=== PATIENT | female | born 1940 | race Caucasian/White ===

== ENCOUNTER 2019-08-22 14:14 | Emergency (ER) | payer MEDICARE, BC, SELFPAY ==
[2019-08-22 14:15] VITALS: BP 154/84; PULSE 75; RESP 20; TEMP 36.8; O2SAT 90; BMI 28.2
[2019-08-22] MEDS: diazePAM 2 MG Tablet PO (14:47)
--- NOTE | 2019-08-22 15:29 | ED.DCSUM_ITS ---
History of Present Illness Chief Complaint: Dizziness Narrative: Patient presenting for evaluation secondary to dizziness and anxiety. Patient was at the [facility] today, and she had a sudden onset of dizziness. She describes this as a room spinning type sensation. Patient states that it will come and go, but it caused her to have a significant amount of anxiety, and she started crying. Patient denies any visual changes, headaches, speech difficulty, numbness, or weakness. She denies any ringing in her ears. Patient typically ambulates with a walker, but was unable to ambulate secondary to this dizziness initially. She does have a history of having some vertigo in the past and reports to me that this feels somewhat similar. Review of systems otherwise negative. Past Medical History - Allergies and Home Meds Allergies/Adverse Reactions: Allergies Sulfa (Sulfonamide Antibiotics) Allergy (Verified 08/22/19 14:19) Other PINE Allergy (Uncoded 08/22/19 14:19) Other Primary Care Physician: Booker Melendez MD [Primary Care Provider] - Past Medical History: - - Hypertension, hyperlipidemia, hypothyroidism Surgical History: noncontributory Smoking Status: Never smoker - Family History Maternal Family History: Reports: No pertinent history Paternal Family History: Reports: No pertinent history Review of Systems All systems negative except as indicated General: Denies: Chills, Fever, Sweats Eyes: Denies: Visual changes - bilaterally, Diplopia ENT: Denies: Rhinorrhea, Sore throat Cardiovascular: Denies: Chest pain, Palpitations Respiratory: Denies: Dyspnea, Cough, Dyspnea on exertion Gastrointestinal: Denies: Abdominal pain, Nausea, Vomiting, Diarrhea, Melena, Hematochezia Genitourinary: Denies: Dysuria, Hematuria, Frequency Musculoskeletal: Denies: Back pain, Extremity Pain Skin: Denies: Rash, Wounds Neurological: Reports: - - Dizziness. Denies: Headache, Weakness, Parasthesia, Numbness Psych: Reports: Anxiety Physical Exam Vital Signs/Narrative: Vital Signs Temp Pulse Resp BP Pulse Ox 08/22/19 14:15 98.3 F 75 20 H 154/84 H 90 Inital Vital Signs reviewed: Yes General: Well nourished, Well developed, Acute Distress - Tearful and hyperventilating Head: Normocephalic, Atraumatic Eyes: Perrl, EOMI, - - No evidence of resting nystagmus ENT: Moist mucous membranes, No rhinorrhea Neck: Supple, Nontender Cardiovascular: Regular rate, Regular rhythm, No murmurs Respiratory: No distress, CTA bilaterally, Chest nontender Abdomen: Soft, Nontender, Nondistended, Normal bowel sounds Extremities: Nontender, No edema Skin: Normal color, No rash Neurological: Alert, Oriented x3, Cranial nerves II-XII grossly intact, Normal Strength, Normal Sensation, - - Patient has reproduction of symptoms with Sylvester- Hallpike maneuver on the left side with very mild nystagmus noted. Psychological: Tearful Diagnostic/Tx/Re-eval - Medical Decision Making Patient presented secondary to dizziness. This is sudden onset sudden offset and reproducible. This seems consistent with a peripheral vertigo. Patient was given Valium and had improvement of both her anxiety as well as her dizziness and she was able to ambulate with her walker. Urinalysis was checked and was positive for leukocytes. Patient will be treated with a course of Keflex. Patient will be sent home with a course of Keflex and Antivert. She will follow-up with primary care next week. ED Disposition - Plan for ED Patient: Disposition: Home or Assisted Living Diagnosis: Vertigo, UTI (urinary tract infection) Instructions: Benign Positional Vertigo, Urinary Tract Infections in Women Prescriptions: Meclizine HCl [Antivert] 25 mg PO 4X/DAY PRN PRN #20 tab PRN Reason: Dizziness Prescription Printed Cephalexin [Keflex] 500 mg PO Q12 #14 cap Prescription Printed Referrals: Booker Melendez MD [Primary Care Provider] -
[2019-08-22 15:32] LABS: Mucous, Urine 0 SEEN /hpf (<or=2+); Red Blood Cells-Urine 0 SEEN /hpf (0-5); Squamous Epithelial Cells - UA 0 SEEN /hpf (5-10)
[2019-08-22 16:01] LABS: Color, Urine Yellow (Yellow); Glucose, Dipstick Normal (Normal); Ketone-Dipstick 5 mg/dl (Negative); Leukocyte Esterase-Dipstick 25 /ul (Negative); Nitrite-Dipstick Negative (Negative); Occult Blood-Urine Negative /ul (Negative); Protein-Dipstick Negative (Negative); Urine Bilirubin Dipstick Negative (Negative); Urine Clarity Clear (Clear); Urine Urobilinogen Normal (Normal)
[2019-08-22 16:48] LABS: Bacteria RARE /hpf (None Seen); White Blood Cells 0-5 SEEN /hpf (0-5)
[2019-08-22 16:55] VITALS: BP 152/78; PULSE 7; RESP 20; O2SAT 99
== END 2019-08-22 16:45 | disposition home or self-care (01) ==
PROVIDERS: Emergency Provider Emergency Medicine; Family Provider Family Medicine; PCP Family Medicine
DX: R42 Dizziness and giddiness (principal); N39.0 Urinary tract infection, site not specified; F41.9 Anxiety disorder, unspecified; I10 Essential (primary) hypertension; E03.9 Hypothyroidism, unspecified; E78.5 Hyperlipidemia, unspecified; Z88.2 Allergy status to sulfonamides; Z79.899 Other long term (current) drug therapy
CPT/HCPCS: 81001; 99283

== ENCOUNTER 2020-12-17 21:36 | Inpatient (IN) | payer MEDICARE, BC, SELFPAY ==
[2020-12-17 21:37] VITALS: BP 122/102; PULSE 64; RESP 16; TEMP 36.7; O2SAT 99; BMI 20.1
[2020-12-17 21:41] VITALS: BP 122/102; PULSE 64; RESP 16; TEMP 36.7; O2SAT 94
--- NOTE | 2020-12-17 21:50 | CT_ITS ---
STUDY: CT BRAIN WITHOUT CONTRAST REASON FOR EXAM: Female, 80 years old. fall head injury RADIATION DOSAGE (If Supplied By Facility): CTDIvol = ( 44.99 ) mGy, DLP = ( 829.85 ) mGycm TECHNIQUE: Transaxial CT imaging of the brain was performed without administration of intravenous contrast material. Individualized dose optimization techniques were used for this CT. COMPARISON: No relevant priors. FINDINGS: Normal soft tissue structures. Normal calvarium. There is mild cerebral atrophy with widening of the extra-axial spaces and ventricular dilatation. There are areas of decreased attenuation within the white matter tracts of the supratentorial brain, consistent with microvascular disease changes. Normal basal ganglia and thalami. Normal brainstem. There is mild cerebellar atrophy. There is no intracranial hemorrhage. There are no findings of an acute ischemic infarction. Normal visualized paranasal sinuses. CT/Brain/Head without Contrast IMPRESSION: Chronic involutional changes of the brain. Electronically Signed: Otis Draper DO at 23:00 EDT Tel , Service support ,
--- NOTE | 2020-12-17 21:51 | EKG12_ITS ---
Test Reason : DYSRHYTHMIA Blood Pressure : / mmHG Vent. Rate : 062 BPM Atrial Rate : 062 BPM P-R Int : 142 ms QRS Dur : 084 ms QT Int : 426 ms P-R-T Axes : 085 -53 063 degrees QTc Int : 432 ms Normal sinus rhythm Low voltage QRS Left anterior fascicular block Septal infarct , age undetermined Abnormal ECG Confirmed by SAMEER HERNANDEZ, KIESHA ([id number]), editorial assistant SEMAJ BALBUENA ([id number]) on 12/20/2020 9:51:14 AM Referred By: SILVINA Confirmed By:LONDON ESTRELLA MD
--- NOTE | 2020-12-17 21:53 | ED.VIS.GEN ---
History of Present Illness Chief Complaint: Weakness Informant: Patient, Family, Credit Manager Narrative: 80-year-old female brought in by family. Her 1 son was in hospice and she was going to say her final goodbyes this morning. Her other son came to pick her up and found her on the ground she did not know how she got to the ground but states and is very adamant that she did not fall. She does have a bruise below her right eye. Family states that she was upstairs and was having nonsensical talk. She was being talked about being hit by a tea bag and that there was a coffee filter on the floor. She has had minimal to eat today. Family came back to see her and she was again on the ground but stated that she did not fall. She denied being injured. This evening family was unable to get a hold of her and they came to check on her and called the ambulance. There was concern raised from EMS about slurred speech and facial droop which is not currently present. Patient does not know how she got here tonight. She does not know why she is here. - Past Medical History (1) Elevated liver function tests Status: Chronic (2) Hyperlipidemia Status: Chronic (3) Hypertension Status: Chronic (4) Hypothyroidism Status: Chronic Past Medical History - Allergies and Home Meds Allergies/Adverse Reactions: Allergies Penicillins [PCN] Allergy (Verified 12/17/20 21:44) Other Sulfa (Sulfonamide Antibiotics) Allergy (Verified 08/22/19 14:19) Other PINE Allergy (Uncoded 08/22/19 14:19) Other Primary Care Physician: Booker Melendez MD [Primary Care Provider] - Surgical History: noncontributory Lives: Alone Smoking Status: Never smoker Drugs: None - Family History Maternal Family History: Reports: No pertinent history Paternal Family History: Reports: No pertinent history Review of Systems General: Denies: Chills, Fever, Sweats Eyes: Denies: Visual changes - bilaterally, Diplopia ENT: Denies: Rhinorrhea, Sore throat Cardiovascular: Denies: Chest pain, Palpitations Respiratory: Denies: Dyspnea, Cough, Dyspnea on exertion Gastrointestinal: Denies: Abdominal pain, Nausea, Vomiting, Diarrhea, Melena, Hematochezia Genitourinary: Denies: Dysuria, Hematuria, Frequency Musculoskeletal: Denies: Back pain, Extremity Pain Skin: Denies: Rash, Wounds Neurological: Reports: - - Reported confusion. Denies: Headache, Weakness, Numbness Physical Exam Vital Signs/Narrative: Vital Signs Temp Pulse Resp BP Pulse Ox 12/17/20 21:41 98.0 F 64 16 122/102 H 94 12/17/20 21:37 98.0 F 64 16 122/102 H 99 Inital Vital Signs reviewed: Yes General: Well nourished, Well developed, No Acute Distress Head: Normocephalic, Trauma - Right inferior periorbital contusion no hyphema. No subconjunctival hemorrhage. Eyes: Perrl, EOMI ENT: Moist mucous membranes, No rhinorrhea Neck: Supple, Nontender Cardiovascular: Regular rate, Regular rhythm, No murmurs Respiratory: No distress, CTA bilaterally, Chest nontender Abdomen: Soft, Nontender, Nondistended, Normal bowel sounds Back: Nontender, Normal Inspection Extremities: Nontender, No edema Skin: Normal color, No rash Neurological: Alert, Cranial nerves II-XII grossly intact, Normal Strength, Normal Sensation. Negative for: Oriented x3 Psychological: Depressed Diagnostic/Tx/Re-eval Clinical Impression(s) from Imaging Studies Brain CT 12/17/20 21:50 IMPRESSION: Chronic involutional changes of the brain. Electronically Signed: Otis Draper DO at 23:00 EDT Tel , Service support , Chest X-Ray 12/17/20 22:37 IMPRESSION: Normal x-ray examination of the chest. Electronically Signed: Otis Draper DO at 22:59 EDT Tel , Service support , Laboratory Last Values WBC 6.9 K/mm3 (4.4-11.0) 12/17/20 21:54 RBC 4.05 M/mm3 (4.2-5.4) L 12/17/20 21:54 Hgb 12.6 g/dL (12.0-15.0) 12/17/20 21:54 Hct 39.1 % (37-47) 12/17/20 21:54 MCV 96.5 fL (81-99) 12/17/20 21:54 MCH 31.1 pg (27.0-32.0) 12/17/20 21:54 MCHC 32.2 g/dL (32-36) 12/17/20 21:54 RDW Std Deviation 45.1 fl (35.1-43.9) H 12/17/20 21:54 RDW Coeff of Jad 12.6 % (11.6-14.6) 12/17/20 21:54 Plt Count 216 K/mm3 (150-450) 12/17/20 21:54 MPV 10.7 fl (6.2-12.0) 12/17/20 21:54 Immature Gran % (Auto) 0.100 % (0.0-0.9) 12/17/20 21:54 Neut % (Auto) 80.2 % (47-70) H 12/17/20 21:54 Lymph % (Auto) 11.4 % (19-41) L 12/17/20 21:54 [place] % (Auto) 7.3 % (0-10) 12/17/20 21:54 Eos % (Auto) 0.6 % (0-5) 12/17/20 21:54 Baso % (Auto) 0.4 % (0-1) 12/17/20 21:54 Absolute Neuts (auto) 5.5 X10^3/uL (2.0-7.7) 12/17/20 21:54 Absolute Lymphs (auto) 0.78 X10^3/uL (0.83-4.51) L 12/17/20 21:54 Nucleated RBC % 0 % (0-5) 12/17/20 21:54 Sodium 141 mmol/L (136-145) 12/17/20 21:54 Potassium 4.4 mmol/L (3.5-5.1) 12/17/20 21:54 Chloride 107 mmol/L (98-107) 12/17/20 21:54 Carbon Dioxide 30.0 mmol/L (21.0-32.0) 12/17/20 21:54 Anion Gap 4 (5-15) L 12/17/20 21:54 BUN 33 mg/dL (7-18) H 12/17/20 21:54 Creatinine 1.34 mg/dL (0.55-1.02) H 12/17/20 21:54 Estim Creat Clear Calc 32.18 ml/min 12/17/20 21:54 Est GFR (MDRD) Af Amer 49 mL/min (>60) L 12/17/20 21:54 Est GFR (MDRD) Non-Af 40 mL/min (>60) L 12/17/20 21:54 BUN/Creatinine Ratio 24.6 RATIO (10-20) H 12/17/20 21:54 Glucose 86 mg/dL (74-106) 12/17/20 21:54 Calcium 9.4 mg/dL (8.5-10.1) 12/17/20 21:54 Total Bilirubin 0.70 mg/dL (0.20-1.00) 12/17/20 21:54 AST 25 U/L (15-37) 12/17/20 21:54 ALT 17 U/L (13-56) 12/17/20 21:54 Alkaline Phosphatase 102 U/L (45-117) 12/17/20 21:54 Troponin I < 0.015 ng/mL (<0.045) 12/17/20 21:54 Total Protein 6.9 g/dL (6.4-8.2) 12/17/20 21:54 Albumin 3.7 g/dL (3.2-5.0) 12/17/20 21:54 Globulin 3.2 g/dL (2.2-4.2) 12/17/20 21:54 Albumin/Globulin Ratio 1.2 RATIO (0.9-2.4) 12/17/20 21:54 Urine Color Yellow (Yellow) 12/17/20 22:20 Urine Clarity Clear (Clear) 12/17/20 22:20 Urine pH 6.0 (5.0 - 8.0) 12/17/20 22:20 Ur Specific [place] 1.020 (1.002-1.030) 12/17/20 22:20 Urine Protein 100 mg/dl (Negative) H 12/17/20 22:20 Urine Glucose (UA) Normal mg/dl (Normal) 12/17/20 22:20 Urine Ketones 5 mg/dl (Negative) H 12/17/20 22:20 Urine Occult Blood 10 /ul (Negative) H 12/17/20 22:20 Urine Nitrite Positive (Negative) H 12/17/20 22:20 Urine Bilirubin 1 mg/dL (Negative) H 12/17/20 22:20 Urine Urobilinogen 4 mg/dl (Normal) H 12/17/20 22:20 Ur Leukocyte Esterase 25 /ul (Negative) H 12/17/20 22:20 Urine RBC 0-5 SEEN /hpf (0-5) 12/17/20 22:20 Urine WBC 5-10 SEEN /hpf (0-5) 12/17/20 22:20 Ur Squamous Epith Cells 0-5 SEEN /hpf (5-10) 12/17/20 22:20 Urine Bacteria 4+ /hpf (None Seen) 12/17/20 22:20 Hyaline Casts 5-10 SEEN /lpf (0-5) 12/17/20 22:20 Urine Mucus 0 SEEN /hpf (<or=2+) 12/17/20 22:20 - Medical Decision Making Patient's blood work is negative. She does not have a fever or elevated white count. Her urine is clearly infected. There is a question of a TIA which again I did not see any of that. I think she probably has a component of grief reaction/conversion disorder. Her son who is living is preparing to move in with her because she is not safe to live at home alone. I think it is reasonable that we observe her tonight due to UTI and get the home prepared for her to go back to safely. She is already ended up on the floor twice today that cannot be explained and neither can this bruise in the periorbital region. I will speak with her hospitalist. ED Disposition - Plan for ED Patient: Disposition: Acute Care Hospital [facility] Diagnosis: UTI (urinary tract infection), Grief reaction, TIA (transient ischemic attack), Periorbital contusion of right eye, Confusion Referrals: Booker Melendez MD [Primary Care Provider] -
[2020-12-17 22:02] LABS: Absolute Lymphocyte Count 0.78 X10^3/uL (0.83-4.51); Absolute Neutrophil Count 5.5 X10^3/uL (2.0-7.7); Basophil# 0.03 X10^3/uL; Basophil% 0.4 % (0-1); Eosinophil# 0.04 X10^3/uL; Eosinophils% 0.6 % (0-5); Hematocrit 39.1 % (37-47); Hemoglobin 12.6 g/dL (12.0-15.0); Lymphocyte # 0.78 X10^3/ul (0.83-4.51); Lymphocyte % 11.4 % (19-41); Mean Corp Hgb Conc 32.2 g/dL (32-36); Mean Corpuscular Hgb 31.1 pg (27.0-32.0); Mean Corpuscular Volume 96.5 fL (81-99); Mean Platelet Vol. 10.7 fl (6.2-12.0); Monocyte% 7.3 % (0-10); NRBC Flagged by Analyzer 0 % (0-5); Neutrophil # 5.49 X10^3/uL (2.7-7.7); Neutrophil % 80.2 % (47-70); Platelet Count 216 K/mm3 (150-450); RBC Distribution Width CV 12.6 % (11.6-14.6); RBC Distribution Width SD 45.1 fl (35.1-43.9); Red Blood Count 4.05 M/mm3 (4.2-5.4); White Blood Count 6.9 K/mm3 (4.4-11.0)
--- NOTE | 2020-12-17 22:37 | RAD_ITS ---
STUDY: X-RAY CHEST REASON FOR EXAM: Female, 80 years old. weakness TECHNIQUE: Single AP portable view of the chest. COMPARISON: 07/13/2017 FINDINGS: Moderate hiatal hernia The lungs are clear and expanded. There is no demonstrated pleural abnormality. Normal size heart. Normal mediastinum and bradly. Normal visualized pulmonary arteries. Normal visualized aortic arch and descending thoracic aorta. Normal visualized thoracic spine. Normal visualized ribs, clavicles, and shoulders. There is no demonstrated abnormality of the visualized soft tissue structures of the upper abdomen. RAD/Chest 1 View (Portable) IMPRESSION: Normal x-ray examination of the chest. Electronically Signed: Otis Draper DO at 22:59 EDT Tel , Service support ,
[2020-12-17 22:57] LABS: ALB/GLOB Ratio 1.2 RATIO (0.9-2.4); AST(SGOT) 25 U/L (15-37); Alanine Aminotransfer ALT/SGPT 17 U/L (13-56); Albumin, Serum 3.7 g/dL (3.2-5.0); Alkaline Phosphatase 102 U/L (45-117); Anion Gap 4 (5-15); BUN 33 mg/dL (7-18); BUN/Creat Ratio 24.6 RATIO (10-20); Calcium,Total 9.4 mg/dL (8.5-10.1); Chloride 107 mmol/L (98-107); Creatinine, Serum 1.34 mg/dL (0.55-1.02); EST Glomerular Filtration Rate 40 mL/min (>60); Est Glom Filt Rate - Afr Amer 49 mL/min (>60); Estimated Creatinine Clearance 32.18 ml/min; Globulin 3.2 g/dL (2.2-4.2); Glucose 86 mg/dL (74-106); Potassium 4.4 mmol/L (3.5-5.1); Protein, Total 6.9 g/dL (6.4-8.2); Sodium Level 141 mmol/L (136-145)
[2020-12-17 22:58] LABS: Mucous, Urine 0 SEEN /hpf (<or=2+)
[2020-12-17 23:00] VITALS: BP 142/74; PULSE 57; RESP 15; O2SAT 100
[2020-12-17 23:15] LABS: Color, Urine Yellow (Yellow); Glucose, Dipstick Normal (Normal); Ketone-Dipstick 5 mg/dl (Negative); Leukocyte Esterase-Dipstick 25 /ul (Negative); Nitrite-Dipstick Positive (Negative); Occult Blood-Urine 10 /ul (Negative); Protein-Dipstick 100 mg/dl (Negative); Urine Clarity Clear (Clear); Urine Urobilinogen 4 mg/dl (Normal)
[2020-12-17 23:25] LABS: Urine Bilirubin Dipstick 1 mg/dL (Negative)
[2020-12-17 23:43] LABS: Bacteria 4+ /hpf (None Seen); White Blood Cells 5-10 SEEN /hpf (0-5)
[2020-12-17 23:44] LABS: Hyaline Cast 5-10 SEEN /lpf (0-5); Red Blood Cells-Urine 0-5 SEEN /hpf (0-5); Squamous Epithelial Cells - UA 0-5 SEEN /hpf (5-10)
--- NOTE | 2020-12-17 23:57 | PCM.HP.STD ---
Problem List (1) UTI (urinary tract infection) Status: Acute Qualifiers: Urinary tract infection type: site unspecified Hematuria presence: without hematuria Qualified Code(s): N39.0 - Urinary tract infection, site not specified (2) Grief reaction Status: Acute (3) TIA (transient ischemic attack) Status: Acute (4) Hypertension Status: Chronic Qualifiers: Hypertension type: essential hypertension Qualified Code(s): I10 - Essential (primary) hypertension (5) Hyperlipidemia Status: Chronic Qualifiers: Hyperlipidemia type: unspecified Qualified Code(s): E78.5 - Hyperlipidemia, unspecified (6) Hypothyroidism Status: Chronic Qualifiers: Hypothyroidism type: unspecified Qualified Code(s): E03.9 - Hypothyroidism, unspecified History of Present Illness Date of Admission: 12/17/20 Chief Complaint: Facial droop, slurred speech, recent of son The patient is an 17 y/o F w/ PMHx: CKD stage III, Hypothyroidism, Anxiety and Depression, HTN, HLD who presents to the [facility] ED on 12/17/20 with expected of her son in hospice today with onset following confusion, forgetfulness, slurred speech and facial droop prompting ED presentation. She was saying abnormal things to her other son, declined oral intake and fell twice on day of ED presentation. Son denied any recent slurred speech or facial changes which again was only noted per EMS but does note that she has been extremely forgetful, more flat affect and has had frequent falls. As noted her son who was in hospice did on day of ED presentation and she was unable to see him before he in addition to this her who is been for the last 4 years on the same date. Work-up in the ED included T 98, heart 64, BP 122/102, respiratory rate 16, 99% on room air, CBC with WBC 6.9, hemoglobin 12.6, platelet 216 with lymphopenia, CMP with BUN/creatinine 33/1.34 otherwise not marked appearing, unremarkable hepatic profile, troponin less than 0.015, CXR with no acute cardiopulmonary findings, CT head no acute intracranial findings, EKG w/ SR without acute evidence of ischemia, urinalysis with specific gravity 1.020, protein 100, ketone 5, occult blood 10, positive nitrite, 1 bilirubin, 4 urobilinogen, 25 leukocyte esterase, urine WBC 5-10, 4+. In the ED patient ministered IV Rocephin. Past Medical History Past Medical History (Chronic Problems): Chronic Problems Elevated liver function tests (Chronic) Hypertension (Chronic) Hyperlipidemia (Chronic) Hypothyroidism (Chronic) Allergies Penicillins [PCN] Allergy (Verified 12/17/20 21:44) Other Sulfa (Sulfonamide Antibiotics) Allergy (Verified 08/22/19 14:19) Other PINE Allergy (Uncoded 08/22/19 14:19) Other Home Medications: Ambulatory Orders Medication Instructions Recorded Cholecalciferol (Vitamin D3) 1,000 unit PO DAILY 03/15/14 [Vitamin D3] Levothyroxine [Synthroid] 75 mcg PO DAILY 03/15/14 Atorvastatin Calcium 20 mg DAILY 12/17/20 Lorazepam 1 tablet DAILY PRN PRN 12/17/20 Paroxetine HCl 10 mg DAILY PRN 12/17/20 Surgical History: - - Back surgery with hardware, right total knee replacement, appendectomy, tonsillectomy, cholecystectomy although some of this is reported per patient who is currently confused. 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 Smoking Status: Never smoker Tobacco Use: Non-smoker Alcohol: None Drugs: None - *Family History Maternal History Items: Cancer - Patient's mother passed when she was 8 years old secondary to cancer, unclear type. Paternal History Items: Renal Disease - Father with history of end-stage renal disease on dialysis. Review of Systems Constitutional: Reports: Anorexia, Malaise, Weakness, Fatigue. Denies: Chills, Fever, Weight Change HEENT: Reports: Difficulty Hearing. Denies: Head Aches, Sinus Congestion, Sinus Drainage Cardiovascular: Denies: Chest Pain, Palpitations Respiratory: Denies: Cough, Shortness of Breath, Shortness of breath at rest, Shortness of breath upon exertion, Sputum production Gastrointestinal: Denies: Abdominal Pain, Nausea, Vomiting Genitourinary: Reports: Frequency. Denies: Dysuria Musculoskeletal: Reports: Back Pain, Joint Pain. Denies: Joint Tenderness Skin: Denies: Rash, Wounds Neurological: Reports: Confusion, - - Per EMS questionable slurred speech and facial droop not noted upon ED presentation.. Denies: Focal weakness, Numbness, Tingling Psychiatric: Reports: Anxiety, Depression. Denies: Homicidal Ideations, Suicidal Ideations Hematologic/ Lymphatic: Reports: Easy Bruising, Easy Bleeding VTE Information - Inpt Only VTE Present on Admission: No VTE Mechan Device Prophylaxis: SCD's VTE Pharm Prophylaxis ordered?: Yes Patient Problems: Active and Suspected Problems UTI (urinary tract infection) (Acute) Grief reaction (Acute) TIA (transient ischemic attack) (Acute) Periorbital contusion of right eye (Acute) Confusion (Acute) Subjective: Patient extremely hard of hearing, laying in the ED bed, very flat affect, fatigued appearance. Objective: Physical Examination: General: awake, alert, oriented to self, place and some recent events but very hard of hearing and decreased interactiveness, following commands, laying in the ED bed, no acute distress. Skin: normal color, turgor, no icterus, cyanosis except various staged ecchymoses including to the face, beneath the right eye. HEENT: AT/NC, EOMI, PERRLA, dry MM, no carotid bruits or JVD noted, see skin. Lungs: Diminished breath sounds, moderate effort, no rales, ronchi or wheezing. Heart: Regular rate and rhythm; no gallop, rub audible. Abdomen: soft, NTTP, ND, mildly hyperactive BS, no HSM. Extremities: no cyanosis, clubbing, or edema. Neurological: patient awake, alert, oriented as noted; cognitive function suspect decreased from baseline, suspect secondary primarily to grief; pupils equally reactive to light and accomodation; cranial nerves II-XII grossly normal, no evidence of any slurred speech or facial droop, extremely hard of hearing which complicates evaluation, moving all 4 extremities, no focal deficits, strength moderately global decreased. Psychiatric: affect appears fatigued, flat, appears depressed, no obvious evidence of anxiety. - Physical Exam Vitals/I&O's: Vital Signs Temp Pulse Resp BP Pulse Ox 98.0 F 57 L 15 142/74 H 100 12/17/20 21:41 12/17/20 23:00 12/17/20 23:00 12/17/20 23:00 12/17/20 23:00 Oxygen Delivery Method Room Air Weight: 136 lb 7.458 oz Body Mass Index (BMI) 20.1 Laboratory Results 12/17/20 21:54: WBC 6.9, RBC 4.05 L, Hgb 12.6, Hct 39.1, MCV 96.5, MCH 31.1, MCHC 32.2, RDW Std Deviation 45.1 H, RDW Coeff of Jad 12.6, Plt Count 216, MPV 10.7, Immature Gran % (Auto) 0.100, Neut % (Auto) 80.2 H, Lymph % (Auto) 11.4 L, [place] % (Auto) 7.3, Eos % (Auto) 0.6, Baso % (Auto) 0.4, Absolute Neuts (auto) 5.5, Absolute Lymphs (auto) 0.78 L, Nucleated RBC % 0 12/17/20 21:54: Sodium 141, Potassium 4.4, Chloride 107, Carbon Dioxide 30.0, Anion Gap 4 L, BUN 33 H, Creatinine 1.34 H, Estim Creat Clear Calc 32.18, Est GFR (MDRD) Af Amer 49 L, Est GFR (MDRD) Non-Af 40 L, BUN/Creatinine Ratio 24.6 H, Glucose 86, Calcium 9.4, Total Bilirubin 0.70, AST 25, ALT 17, Alkaline Phosphatase 102, Troponin I < 0.015, Total Protein 6.9, Albumin 3.7, Globulin 3.2, Albumin/Globulin Ratio 1.2 12/17/20 22:20: Urine Color Yellow, Urine Clarity Clear, Urine pH 6.0, Ur Specific [place] 1.020, Urine Protein 100 H, Urine Glucose (UA) Normal, Urine Ketones 5 H, Urine Occult Blood 10 H, Urine Nitrite Positive H, Urine Bilirubin 1 H, Urine Urobilinogen 4 H, Ur Leukocyte Esterase 25 H, Urine RBC 0-5 SEEN, Urine WBC 5-10 SEEN, Ur Squamous Epith Cells 0-5 SEEN, Urine Bacteria 4+, Hyaline Casts 5-10 SEEN, Urine Mucus 0 SEEN Current Medications Ceftriaxone Sodium (Rocephin) 1 gm in 50 mls @ 100 mls/hr IV X1 ONE Stop: 12/18/20 00:20 Assessment/Plan All Active Problems UTI (urinary tract infection) (Acute) Grief reaction (Acute) TIA (transient ischemic attack) (Acute) Periorbital contusion of right eye (Acute) Confusion (Acute) Chest pain (Acute) The patient is an 17 y/o F w/ PMHx: CKD stage III, Hypothyroidism, Anxiety and Depression, HTN, HLD who presents to the [facility] ED on 12/17/20 with expected of her son in hospice today with onset following confusion, forgetfulness, slurred speech and facial droop prompting ED presentation. 1. Questionable Slurred speech, facial droop concerning for TIA/CVA, Lower suspicion: Will admit to PCU, will obtain MRI Brain, MRA Head and Neck, defer repeat ECHO, PT/OT/Speech/Nutrition evaluation per protocol. Will consult Neurology for evaluation once imaging obtained. Will allow permissive HTN, maintain on asa, statin w/ AM FLP, fall precautions. Mag, TSH, HgbA1c pending. This presentation given no obvious facial droop or slurred speech which was noted per primarily EMS could be secondary to delirium with UTI as noted #3. 2. Acute Urinary Tract Infection with #1 versus Higher suspicion for associated delirium: UA upon ED evaluation remarkable, pending UCx, continue IVFs, monitor I/Os, continue IV Rocephin w/ transition as able pending sensitivities and speciation. 3. Hypertension, not on regimen per current list: Upon ED presentation BP 122/102, diastolic above goal, will continue to monitor, given presentation will maintain permissive with PRN agents. 4. Anxiety and depression, Uncontrolled: We will continue patient home paroxetine and as needed lorazepam although given age may benefit from alternate regimen consideration, given current incidence would benefit from counseling and potentially alteration to her medications. Case management consulted. 5. Chronic Kidney Disease Stage III: Admission BUN/Cr 33/1.34, baseline renal function 1.1-1.3, repeat BMP in AM. 6. Hyperlipidemia: Continue home statin regimen. FLP in AM. 7. DVT prophylaxis: SCDs, Lovenox. 8. CODE status: Patient HCPOA was her son who passed today and living will is in place. Discussed with son present and patient need to transition her HCPOA. Noted to son present he may discuss these items with case management/social work. Discussed CODE status and given presentation, following discussions will maintain Full code status. Advanced Care Planning Face to Face Time: 16 minutes. OBSV E&M: 89838 Initial observation care L3 Procedures: 80990 Advncd Care Plan 30 Min
[2020-12-18] VITALS (17 sets, daily range): BP systolic 98–164; BP diastolic 58–82; PULSE 60–82; RESP 15–21; TEMP 36.5–36.9; O2SAT 95–99; BMI 18.8; BMI 18.9
[2020-12-18] MEDS: Ceftriaxone 1 GM/50 ML BAG IV ×2 (00:59→20:59)
[2020-12-18 01:24] LABS: Lactic Acid 1.2 mmol/L (0.4-1.9)
--- NOTE | 2020-12-18 01:54 | MRI_ITS ---
STUDY: MRA OF THE HEAD WITHOUT CONTRAST REASON FOR EXAM: Female, 80 years old. CVA TECHNIQUE: 3-D [id number] (TOF) imaging was performed with MIPs. The study was performed unenhanced. COMPARISON: None. FINDINGS: The study is markedly degraded by motion artifact which makes interpretation difficult. Normal bilateral petrous carotid arteries. Normal right cavernous carotid artery with a normal supraclinoid bifurcation. Normal left cavernous carotid artery with a normal supraclinoid bifurcation. Normal right A1 segments of the anterior cerebral artery. Normal left A1 segments of the anterior cerebral artery. Normal intact anterior communicating artery (ACOM). Normal bilateral A2 segments of the anterior cerebral arteries. Abrupt signal loss within the M1 segment of the right middle cerebral artery with poor visualization of distal branches worrisome for occlusion from a right middle cerebral artery infarct. Oormal left M1 and M2 segments of the middle cerebral arteries, with a normal M1 bifurcation. Normal right posterior communicating artery (PCOM). Normal left posterior communicating artery (PCOM). Normal bilateral vertebral arteries. Normal basilar artery with a normal basilar bifurcation. The visualized bilateral superior cerebellar (SCA) arteries are normal. Normal bilateral P1, P2 and visualized P3 segments of the posterior cerebral arteries. There is no demonstrated aneurysm of the [place] of [place]. There is no major vessel occlusion or hemodynamically significant stenosis. There is no demonstrated abnormality of the visualized brain. 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 Electronically Signed: Brooks Chapman MD at 12:24 EDT Tel , Service support ,
--- NOTE | 2020-12-18 01:54 | MRI_ITS ---
STUDY: MRI BRAIN WITHOUT CONTRAST REASON FOR EXAM: Female, 80 years old. CVA TECHNIQUE: Standardized multiplanar fat and water weighted pulse sequences were obtained. COMPARISON: CT head without contrast 12/17/2020. FINDINGS: No diffusion restriction to suspect acute or subacute infarcts throughout the brain parenchyma. Normal size of the ventricles and extra-axial spaces for the patient''s age. Few T2 FLAIR hyperintensity in the periventricular white matter are chronic white matter ischemic changes. Prominent perivascular spaces in the region of both anterior commissure is. Normal bilateral basal ganglia. Normal thalami. There is no extra-axial fluid accumulation. Normal flow voids within the major intracranial circulation suggesting patency by spin echo criteria. Normal sella turcica, pituitary gland, infundibular stalk, optic chiasm and hypothalamus. Normal tectal plate and pineal gland. Normal midbrain, teresita and medulla. Normal cerebellum. Normal basal cisterns. Normal bilateral temporal bones. Normal bilateral internal auditory canals. No demonstrated orbital abnormality, within the constraints of a routine brain study. Normal visualized paranasal sinuses. Normal calvarium and skull base. Normal visualized soft tissue structures. Normal visualized upper cervical spine. MRI/Brain without Contrast IMPRESSION: 1. No MRI evidence of acute or subacute ischemic infarcts or acute intracranial abnormality. 2. Prominent perivascular spaces in the region of both anterior commissures. 3. Few chronic periventricular white matter ischemic changes in both cerebral hemispheres. Electronically Signed: Ron Chao MD at 12:49 EDT , Service support ,
--- NOTE | 2020-12-18 01:54 | MRI_ITS ---
EXAM: MR ANGIOGRAPHY NECK WITHOUT INTRAVENOUS CONTRAST CLINICAL INDICATION: CVA TECHNIQUE: Routine carotid MR angiogram protocol was performed without intravenous contrast. 3D reconstructions were reviewed. Nascet criteria using the distal ICAs for comparison were used for evaluation of stenoses. This report was created using [employer] report Grokker technology. COMPARISON: None. FINDINGS: RIGHT COMMON CAROTID ARTERY: Unremarkable. No occlusion or significant stenosis. No dissection. RIGHT INTERNAL CAROTID ARTERY: Unremarkable. Extracranial segment is patent with no occlusion or significant stenosis. No dissection. RIGHT EXTERNAL CAROTID ARTERY: Unremarkable. No occlusion. RIGHT VERTEBRAL ARTERY: Excessive motion degradation artifacts. The source images show no suspicious stenosis of both carotid arteries and vertebral arteries. The right vertebral artery is dominant. No dissection. LEFT COMMON CAROTID ARTERY: Unremarkable. No occlusion or significant stenosis. No dissection. LEFT INTERNAL CAROTID ARTERY: Unremarkable. Extracranial segment is patent with no occlusion or significant stenosis. No dissection. LEFT EXTERNAL CAROTID ARTERY: Unremarkable. No occlusion. LEFT VERTEBRAL ARTERY: Unremarkable. No occlusion or significant stenosis. No dissection. GREAT VESSELS OF AORTIC ARCH: Not included. CAROTID STENOSIS REFERENCE USING NASCET CRITERIA: % ICA stenosis = (1 - narrowest ICA diameter/diameter of distal cervical ICA) x 100. Mild - <50% stenosis. Moderate - 50-69% stenosis. Severe - 70-94% stenosis. Near occlusion - 95-99% stenosis. Occluded - 100% stenosis. MRI/MRA Neck without Contrast IMPRESSION: Very Limited MRA of the neck due to excessive motion but the source images did not show any significant stenosis of both carotid arteries and vertebral arteries. Electronically Signed: Ron Chao MD at 12:51 EDT , Service support ,
[2020-12-18] MEDS: 0.9% Normal Saline 1,000 ML 100 ML IV (02:29)
[2020-12-18 03:32] LABS: Magnesium 2.1 mg/dL (1.6-2.6)
[2020-12-18 07:28] LABS: Absolute Lymphocyte Count 0.72 X10^3/uL (0.83-4.51); Absolute Neutrophil Count 4.5 X10^3/uL (2.0-7.7); Basophil# 0.03 X10^3/uL; Basophil% 0.5 % (0-1); Eosinophil# 0.13 X10^3/uL; Eosinophils% 2.2 % (0-5); Hematocrit 34.3 % (37-47); Hemoglobin 10.9 g/dL (12.0-15.0); Lymphocyte # 0.72 X10^3/ul (0.83-4.51); Lymphocyte % 12.3 % (19-41); Mean Corp Hgb Conc 31.8 g/dL (32-36); Mean Corpuscular Hgb 30.7 pg (27.0-32.0); Mean Corpuscular Volume 96.6 fL (81-99); Mean Platelet Vol. 10.5 fl (6.2-12.0); Monocyte# 0.45 X10^3/uL; Monocyte% 7.7 % (0-10); NRBC Flagged by Analyzer 0 % (0-5); Neutrophil # 4.47 X10^3/uL (2.7-7.7); Neutrophil % 76.8 % (47-70); Platelet Count 178 K/mm3 (150-450); RBC Distribution Width CV 12.6 % (11.6-14.6); RBC Distribution Width SD 44.5 fl (35.1-43.9); Red Blood Count 3.55 M/mm3 (4.2-5.4); White Blood Count 5.8 K/mm3 (4.4-11.0)
[2020-12-18 07:49] LABS: Hemoglobin A1c 5.3 % (3.8-5.6)
[2020-12-18 08:04] LABS: ALB/GLOB Ratio 1.2 RATIO (0.9-2.4); AST(SGOT) 19 U/L (15-37); Alanine Aminotransfer ALT/SGPT 14 U/L (13-56); Alkaline Phosphatase 86 U/L (45-117); Anion Gap 8 (5-15); BUN 29 mg/dL (7-18); BUN/Creat Ratio 32.1 RATIO (10-20); Calcium,Total 8.4 mg/dL (8.5-10.1); Chloride 110 mmol/L (98-107); Cholesterol 118 mg/dL (200); EST Glomerular Filtration Rate 64 mL/min (>60); Est Glom Filt Rate - Afr Amer 77 mL/min (>60); Estimated Creatinine Clearance 44.81 ml/min; Globulin 2.6 g/dL (2.2-4.2); Glucose 93 mg/dL (74-106); High Density Lipoprotein 59 mg/dL; Potassium 3.4 mmol/L (3.5-5.1); Protein, Total 5.6 g/dL (6.4-8.2); Sodium Level 141 mmol/L (136-145); Thyroid Stim Hormone (TSH) 0.51 uIU/mL (0.358-3.74); Triglycerides 47 mg/dL; Very Low Density Lipoprotein 9 mg/dL (5-40)
--- NOTE | 2020-12-18 08:57 | NURSING ---
Attempted to call pt's son Nima in order to complete MRI questionnaire. Left message to return call.
[2020-12-18] MEDS: Levothyroxine 75 MCG Tablet PO (09:28)
[2020-12-18] MEDS: Enoxaparin 30 MG/0.3 ML Syringe SC (09:28)
[2020-12-18] MEDS: PARoxetine 10 MG Tablet PO (09:28)
--- NOTE | 2020-12-18 10:53 | PCM.PROGNOTE ---
<Hardeep Padronssica PHARMACY CLINICAL SPECIALIST - Last Filed: 12/18/20 11:02> Patient Problems: Active and Suspected Problems UTI (urinary tract infection) (Acute) Grief reaction (Acute) TIA (transient ischemic attack) (Acute) Periorbital contusion of right eye (Acute) Confusion (Acute) Subjective: Patient seen and examined. Drowsy this morning however easily arousable. Intermittently confused. No speech changes noted. Denies other neurologic or focal deficits. - Physical Exam Vitals/I&O's: Vital Signs Temp Pulse Resp BP Pulse Ox 98.4 F 75 16 111/61 98 12/18/20 09:22 12/18/20 09:22 12/18/20 09:22 12/18/20 09:22 12/18/20 09:22 Oxygen Delivery Method Room Air Weight: 127 lb 10.362 oz Body Mass Index (BMI) 18.8 Intake and Output for Last 24 Hours 12/16/20 12/17/20 12/18/20 23:59 23:59 23:59 Intake Total 50 / 50 Balance 50 / 50 General: Alert, Cooperative HEENT: Atraumatic, PERRLA, EOMI, Normocephalic Neck: Supple, No JVD, Negative Carotid Bruits Lungs: Clear to auscultation, Normal air movement Cardiovascular: Regular rate, No murmurs Abdomen: Bowel Sounds Present, Soft, Non Tender, Non-Distended Extremities: No clubbing, No cyanosis, No edema, Capillary Refill Less than 3 Seconds Skin: No rashes, No breakdown Musculoskeletal: No Tenderness to Palpation of Joints or Extremities Neurological: Cranial nerves II-XII grossly intact, Neuro grossly intact Psych/Mental Status: Normal Affect, Appropriate Laboratory Results 12/17/20 21:54: WBC 6.9, RBC 4.05 L, Hgb 12.6, Hct 39.1, MCV 96.5, MCH 31.1, MCHC 32.2, RDW Std Deviation 45.1 H, RDW Coeff of Jad 12.6, Plt Count 216, MPV 10.7, Immature Gran % (Auto) 0.100, Neut % (Auto) 80.2 H, Lymph % (Auto) 11.4 L, Greer % (Auto) 7.3, Eos % (Auto) 0.6, Baso % (Auto) 0.4, Absolute Neuts (auto) 5.5, Absolute Lymphs (auto) 0.78 L, Nucleated RBC % 0 12/17/20 21:54: Sodium 141, Potassium 4.4, Chloride 107, Carbon Dioxide 30.0, Anion Gap 4 L, BUN 33 H, Creatinine 1.34 H, Estim Creat Clear Calc 32.18, Est GFR (MDRD) Af Amer 49 L, Est GFR (MDRD) Non-Af 40 L, BUN/Creatinine Ratio 24.6 H, Glucose 86, Calcium 9.4, Total Bilirubin 0.70, AST 25, ALT 17, Alkaline Phosphatase 102, Troponin I < 0.015, Total Protein 6.9, Albumin 3.7, Globulin 3.2, Albumin/Globulin Ratio 1.2 12/17/20 21:54: Magnesium 2.1 12/17/20 22:20: Urine Color Yellow, Urine Clarity Clear, Urine pH 6.0, Ur Specific [place] 1.020, Urine Protein 100 H, Urine Glucose (UA) Normal, Urine Ketones 5 H, Urine Occult Blood 10 H, Urine Nitrite Positive H, Urine Bilirubin 1 H, Urine Urobilinogen 4 H, Ur Leukocyte Esterase 25 H, Urine RBC 0-5 SEEN, Urine WBC 5-10 SEEN, Ur Squamous Epith Cells 0-5 SEEN, Urine Bacteria 4+, Hyaline Casts 5-10 SEEN, Urine Mucus 0 SEEN 12/18/20 00:50: Lactic Acid 1.2 12/18/20 07:20: WBC 5.8, RBC 3.55 L, Hgb 10.9 L, Hct 34.3 L, MCV 96.6, MCH 30.7, MCHC 31.8 L, RDW Std Deviation 44.5 H, RDW Coeff of Jad 12.6, Plt Count 178, MPV 10.5, Immature Gran % (Auto) 0.500, Neut % (Auto) 76.8 H, Lymph % (Auto) 12.3 L, Greer % (Auto) 7.7, Eos % (Auto) 2.2, Baso % (Auto) 0.5, Absolute Neuts (auto) 4.5, Absolute Lymphs (auto) 0.72 L, Nucleated RBC % 0 12/18/20 07:20: Sodium 141, Potassium 3.4 L, Chloride 110 H, Carbon Dioxide 23.0, Anion Gap 8, BUN 29 H, Creatinine 0.90, Estim Creat Clear Calc 44.81, Est GFR (MDRD) Af Amer 77, Est GFR (MDRD) Non-Af 64, BUN/Creatinine Ratio 32.1 H, Glucose 93, Calcium 8.4 L, Total Bilirubin 0.60, AST 19, ALT 14, Alkaline Phosphatase 86, Total Protein 5.6 L, Albumin 3.0 L, Globulin 2.6, Albumin/Globulin Ratio 1.2, Triglycerides 47, Cholesterol 118, LDL Cholesterol 50, VLDL Cholesterol 9, HDL Cholesterol 59, TSH 0.51 12/18/20 07:20: Hemoglobin A1c 5.3 12/18/20 07:20: Phosphorus Pending Current Medications Acetaminophen (Acetaminophen 325 Mg Tablet) 650 mg PO Q6H PRN PRN PRN Reason: Pain Score 1-10/Temp > 100.7 F Al Hydroxide/Mg Hydroxide (Mag Hydrox/Al Hydrox/Simeth 30 Ml Udc) 30 ml PO Q6H PRN PRN PRN Reason: Gastric Burning Albuterol Sulfate (Albuterol 2.5 Mg/3 Ml Vial.Neb.) 2.5 mg INHALATION Q2H PRN PRN PRN Reason: Dyspnea, wheezing Atorvastatin Calcium (Atorvastatin Calcium 20 Mg Tablet) 20 mg PO QHS [facility] Enoxaparin Sodium (Enoxaparin 30 Mg/0.3 Ml Syringe) 30 mg SC DAILY [facility] Last Admin: 12/18/20 09:28 Dose: 30 mg Documented by: Guaifenesin (Guaifenesin 10 Ml Udc (200mg/10ml)) 20 ml PO Q4H PRN PRN PRN Reason: COUGH Hydralazine HCl (Hydralazine 20 Mg/Ml Vial) 5 mg IV Q30M PRN PRN Reason: to maintain BP goals Sodium Chloride () 1,000 mls @ 100 mls/hr IV .Q10H [facility] Last Admin: 12/18/20 02:29 Dose: 100 mls/hr Documented by: Ceftriaxone Sodium (Rocephin) 1 gm in 50 mls @ 100 mls/hr IV Q24H [facility] Labetalol HCl (Labetalol (Prefilled) 20 Mg/4 Ml) 10 - 20 mg IV Q10M PRN PRN PRN Reason: to Maintain BP Goals Levothyroxine Sodium (Levothyroxine 75 Mcg Tablet) 75 mcg PO DAILY@0600 [facility] Last Admin: 12/18/20 09:28 Dose: 75 mcg Documented by: Lorazepam (Lorazepam 1 Mg Tablet) 1 mg PO DAILY PRN PRN PRN Reason: ANXIETY Magnesium Hydroxide (Magnesium Hydroxide 30 Ml Udc) 30 ml PO DAILY PRN PRN PRN Reason: Constipation Melatonin (Melatonin 3 Mg Tablet) 3 mg PO QHS PRN PRN PRN Reason: INSOMNIA Nitroglycerin (Nitroglycerin (Inpatient Use) 0.4 Mg Tab.Subl) 0.4 mg SL Q5M PRN PRN Reason: CARDIAC/CHEST PAIN Ondansetron HCl (Ondansetron 4 Mg/2 Ml Vial) 4 mg IV Q8H PRN PRN PRN Reason: NAUSEA/VOMITING Paroxetine HCl (Paroxetine 10 Mg Tablet) 10 mg PO DAILY [facility] Last Admin: 12/18/20 09:28 Dose: 10 mg Documented by: Prochlorperazine Edisylate (Prochlorperazine 10 Mg/2 Ml Vial) 5 mg IV Q4H PRN PRN PRN Reason: Breakthrough Nausea/Vomiting Psyllium Hydrophilic Mucilloid (Psyllium 1 Packet) 1 packet PO DAILY PRN PRN PRN Reason: Constipation Senna/Docusate Sodium (Senna/Docusate Sodium 1 Tablet) 2 tablet PO BID PRN PRN PRN Reason: Constipation Sodium Chloride (0.9% Saline Lock 10 Ml Syringe) 10 - 40 ml IV UD PRN PRN Reason: SALINE FLUSH Throat Lozenges (Benzocaine/Menthol 1 Lozenge) 1 lozenge MUCOUS MEM Q2H PRN PRN PRN Reason: SORE THROAT Medical Necessity - Tobacco Use Smoking Status: Never smoker Tobacco Use: Non-smoker Assessment/Plan All Active Problems UTI (urinary tract infection) (Acute) Grief reaction (Acute) TIA (transient ischemic attack) (Acute) Periorbital contusion of right eye (Acute) Confusion (Acute) Chest pain (Acute) 1. Acute metabolic encephalopathy secondary to acute UTI-MRI ordered due to report of slurred speech. No neurologic symptoms or focal deficits noted on exam. Suspect related to UTI however will rule out CVA. IV Rocephin pending culture. PT/OT. 2. Hypertension-not on regimen, blood pressure stable. 3. Chronic kidney disease stage IIIa-stable, trend BMP. 4. Anxiety/depression-on paroxetine, as needed lorazepam. 5. Hyperlipidemia- on statin. 6. Hypothyroidism-continue Synthroid regimen. DVT prophylaxis-Lovenox subcu This patient was seen by KUMAR Hui under the supervision of Dr. Cai. <TrellDavid - Last Filed: 12/18/20 13:29> Subjective: Seen and examined. Patient is confused and disoriented regards to time, place and person. She does not remember year. No significant change in his speech, also vision, weakness but neuro exam difficult to assess. Objective: Physical exam General: Awake, disoriented, confused HEENT: Atraumatic, PERRLA, EOMI, Normocephalic Oral: No Gingival or Mucosal Lesions/ Ulcerations Neck: Supple, No JVD, Negative Carotid Bruits Lungs: Air entry diminished in bilateral lung bases. No crepitation/rhonchi Cardiovascular: Regular rate, Regular Rhythm, Normal S1, Normal S2, LLSB systolic murmur Abdomen: Bowel Sounds Present, Soft, Non Tender, Non-Distended : No renal angle tenderness. No suprapubic tenderness. Extremities: No edema, Capillary Refill Less than 3 Seconds Skin: No rashes, No breakdown Musculoskeletal: Muscle strength 4+/5 at major joints. No Tenderness to Palpation of Joints or Extremities Neurological: Cranial nerves II-XII grossly intact, Deep Tendon Reflexes 2+/4, NIH 1 could not tell a month Psych/Mental Status: Normal Affect, Appropriate. - Physical Exam Vitals/I&O's: Vital Signs Temp Pulse Resp BP Pulse Ox 98.4 F 74 16 111/61 98 12/18/20 09:22 12/18/20 10:45 12/18/20 09:22 12/18/20 09:22 12/18/20 09:22 Oxygen Delivery Method Room Air Weight: 127 lb 10.362 oz Body Mass Index (BMI) 18.8 Intake and Output for Last 24 Hours 12/16/20 12/17/20 12/18/20 23:59 23:59 23:59 Intake Total 901.67 / 901.67 Balance 901.67 / 901.67 Laboratory Results 12/17/20 21:54: WBC 6.9, RBC 4.05 L, Hgb 12.6, Hct 39.1, MCV 96.5, MCH 31.1, MCHC 32.2, RDW Std Deviation 45.1 H, RDW Coeff of Jad 12.6, Plt Count 216, MPV 10.7, Immature Gran % (Auto) 0.100, Neut % (Auto) 80.2 H, Lymph % (Auto) 11.4 L, Greer % (Auto) 7.3, Eos % (Auto) 0.6, Baso % (Auto) 0.4, Absolute Neuts (auto) 5.5, Absolute Lymphs (auto) 0.78 L, Nucleated RBC % 0 12/17/20 21:54: Sodium 141, Potassium 4.4, Chloride 107, Carbon Dioxide 30.0, Anion Gap 4 L, BUN 33 H, Creatinine 1.34 H, Estim Creat Clear Calc 32.18, Est GFR (MDRD) Af Amer 49 L, Est GFR (MDRD) Non-Af 40 L, BUN/Creatinine Ratio 24.6 H, Glucose 86, Calcium 9.4, Total Bilirubin 0.70, AST 25, ALT 17, Alkaline Phosphatase 102, Troponin I < 0.015, Total Protein 6.9, Albumin 3.7, Globulin 3.2, Albumin/Globulin Ratio 1.2 12/17/20 21:54: Magnesium 2.1 12/17/20 22:20: Urine Color Yellow, Urine Clarity Clear, Urine pH 6.0, Ur Specific [place] 1.020, Urine Protein 100 H, Urine Glucose (UA) Normal, Urine Ketones 5 H, Urine Occult Blood 10 H, Urine Nitrite Positive H, Urine Bilirubin 1 H, Urine Urobilinogen 4 H, Ur Leukocyte Esterase 25 H, Urine RBC 0-5 SEEN, Urine WBC 5-10 SEEN, Ur Squamous Epith Cells 0-5 SEEN, Urine Bacteria 4+, Hyaline Casts 5-10 SEEN, Urine Mucus 0 SEEN 12/18/20 00:50: Lactic Acid 1.2 12/18/20 07:20: WBC 5.8, RBC 3.55 L, Hgb 10.9 L, Hct 34.3 L, MCV 96.6, MCH 30.7, MCHC 31.8 L, RDW Std Deviation 44.5 H, RDW Coeff of Jad 12.6, Plt Count 178, MPV 10.5, Immature Gran % (Auto) 0.500, Neut % (Auto) 76.8 H, Lymph % (Auto) 12.3 L, Greer % (Auto) 7.7, Eos % (Auto) 2.2, Baso % (Auto) 0.5, Absolute Neuts (auto) 4.5, Absolute Lymphs (auto) 0.72 L, Nucleated RBC % 0 12/18/20 07:20: Sodium 141, Potassium 3.4 L, Chloride 110 H, Carbon Dioxide 23.0, Anion Gap 8, BUN 29 H, Creatinine 0.90, Estim Creat Clear Calc 44.81, Est GFR (MDRD) Af Amer 77, Est GFR (MDRD) Non-Af 64, BUN/Creatinine Ratio 32.1 H, Glucose 93, Calcium 8.4 L, Total Bilirubin 0.60, AST 19, ALT 14, Alkaline Phosphatase 86, Total Protein 5.6 L, Albumin 3.0 L, Globulin 2.6, Albumin/Globulin Ratio 1.2, Triglycerides 47, Cholesterol 118, LDL Cholesterol 50, VLDL Cholesterol 9, HDL Cholesterol 59, TSH 0.51 12/18/20 07:20: Hemoglobin A1c 5.3 12/18/20 07:20: Phosphorus 3.2 Current Medications Acetaminophen (Acetaminophen 325 Mg Tablet) 650 mg PO Q6H PRN PRN PRN Reason: Pain Score 1-10/Temp > 100.7 F Al Hydroxide/Mg Hydroxide (Mag Hydrox/Al Hydrox/Simeth 30 Ml Udc) 30 ml PO Q6H PRN PRN PRN Reason: Gastric Burning Albuterol Sulfate (Albuterol 2.5 Mg/3 Ml Vial.Neb.) 2.5 mg INHALATION Q2H PRN PRN PRN Reason: Dyspnea, wheezing Atorvastatin Calcium (Atorvastatin Calcium 20 Mg Tablet) 20 mg PO QHS [facility] Enoxaparin Sodium (Enoxaparin 30 Mg/0.3 Ml Syringe) 30 mg SC DAILY [facility] Last Admin: 12/18/20 09:28 Dose: 30 mg Documented by: Guaifenesin (Guaifenesin 10 Ml Udc (200mg/10ml)) 20 ml PO Q4H PRN PRN PRN Reason: COUGH Hydralazine HCl (Hydralazine 20 Mg/Ml Vial) 5 mg IV Q30M PRN PRN Reason: to maintain BP goals Sodium Chloride () 1,000 mls @ 75 mls/hr IV .[id number] [facility] Last Infusion: 12/18/20 11:00 Dose: 0 mls/hr Documented by: Ceftriaxone Sodium (Rocephin) 1 gm in 50 mls @ 100 mls/hr IV Q24H [facility] Iopamidol (Contrast Allergy Safety Check) 0 ml IV X1 [facility] Labetalol HCl (Labetalol (Prefilled) 20 Mg/4 Ml) 10 - 20 mg IV Q10M PRN PRN PRN Reason: to Maintain BP Goals Levothyroxine Sodium (Levothyroxine 75 Mcg Tablet) 75 mcg PO DAILY@0600 [facility] Last Admin: 12/18/20 09:28 Dose: 75 mcg Documented by: Lorazepam (Lorazepam 1 Mg Tablet) 1 mg PO DAILY PRN PRN PRN Reason: ANXIETY Magnesium Hydroxide (Magnesium Hydroxide 30 Ml Udc) 30 ml PO DAILY PRN PRN PRN Reason: Constipation Melatonin (Melatonin 3 Mg Tablet) 3 mg PO QHS PRN PRN PRN Reason: INSOMNIA Nitroglycerin (Nitroglycerin (Inpatient Use) 0.4 Mg Tab.Subl) 0.4 mg SL Q5M PRN PRN Reason: CARDIAC/CHEST PAIN Ondansetron HCl (Ondansetron 4 Mg/2 Ml Vial) 4 mg IV Q8H PRN PRN PRN Reason: NAUSEA/VOMITING Paroxetine HCl (Paroxetine 10 Mg Tablet) 10 mg PO DAILY [facility] Last Admin: 12/18/20 09:28 Dose: 10 mg Documented by: Prochlorperazine Edisylate (Prochlorperazine 10 Mg/2 Ml Vial) 5 mg IV Q4H PRN PRN PRN Reason: Breakthrough Nausea/Vomiting Psyllium Hydrophilic Mucilloid (Psyllium 1 Packet) 1 packet PO DAILY PRN PRN PRN Reason: Constipation Senna/Docusate Sodium (Senna/Docusate Sodium 1 Tablet) 2 tablet PO BID PRN PRN PRN Reason: Constipation Sodium Chloride (0.9% Saline Lock 10 Ml Syringe) 10 - 40 ml IV UD PRN PRN Reason: SALINE FLUSH Throat Lozenges (Benzocaine/Menthol 1 Lozenge) 1 lozenge MUCOUS MEM Q2H PRN PRN PRN Reason: SORE THROAT Assessment/Plan This patient was seen in conjunction with PHARMACY CLINICAL SPECIALISTNatalia. I have independently interviewed and examined the patient and reviewed pertinent history, examination findings, laboratory and plan of management. I have reviewed the note and agree with the documented findings with the few additional points. In brief, patient is admitted for acute metabolic encephalopathy most probably due to UTI. Although patient herself denies burning micturition but she has increased frequency urgency and confused. Urine culture pending. On IV ceftriaxone PT and OT. MRI brain, head and neck reviewed as mentioned below. 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 Patient BUN/creatinine is improved therefore we will do CT angiogram head and neck with continuation of IV fluid normal saline to prevent ARSH. A1c 5.3. EKG Sinus rhythm CKD stage III: K3.4 mild hypokalemia, magnesium normal. Phosphorus normal. Potassium replaced. I have discussed my assessment with PHARMACY CLINICAL SPECIALISTNatalia and orders have been reviewed. Laboratory Results 12/17/20 21:54: Magnesium 2.1 12/17/20 22:20: Urine Color Yellow, Urine Clarity Clear, Urine pH 6.0, Ur Specific [place] 1.020, Urine Protein 100 H, Urine Glucose (UA) Normal, Urine Ketones 5 H, Urine Occult Blood 10 H, Urine Nitrite Positive H, Urine Bilirubin 1 H, Urine Urobilinogen 4 H, Ur Leukocyte Esterase 25 H, Urine RBC 0-5 SEEN, Urine WBC 5-10 SEEN, Ur Squamous Epith Cells 0-5 SEEN, Urine Bacteria 4+, Hyaline Casts 5-10 SEEN, Urine Mucus 0 SEEN 12/18/20 00:50: Lactic Acid 1.2 12/18/20 07:20: WBC 5.8, RBC 3.55 L, Hgb 10.9 L, Hct 34.3 L, MCV 96.6, MCH 30.7, MCHC 31.8 L, RDW Std Deviation 44.5 H, RDW Coeff of Jad 12.6, Plt Count 178, MPV 10.5, Immature Gran % (Auto) 0.500, Neut % (Auto) 76.8 H, Lymph % (Auto) 12.3 L, Greer % (Auto) 7.7, Eos % (Auto) 2.2, Baso % (Auto) 0.5, Absolute Neuts (auto) 4.5, Absolute Lymphs (auto) 0.72 L, Nucleated RBC % 0 12/18/20 07:20: Sodium 141, Potassium 3.4 L, Chloride 110 H, Carbon Dioxide 23.0, Anion Gap 8, BUN 29 H, Creatinine 0.90, Estim Creat Clear Calc 44.81, Est GFR (MDRD) Af Amer 77, Est GFR (MDRD) Non-Af 64, BUN/Creatinine Ratio 32.1 H, Glucose 93, Calcium 8.4 L, Total Bilirubin 0.60, AST 19, ALT 14, Alkaline Phosphatase 86, Total Protein 5.6 L, Albumin 3.0 L, Globulin 2.6, Albumin/Globulin Ratio 1.2, Triglycerides 47, Cholesterol 118, LDL Cholesterol 50, VLDL Cholesterol 9, HDL Cholesterol 59, TSH 0.51 12/18/20 07:20: Hemoglobin A1c 5.3 12/18/20 07:20: Phosphorus 3.2 Clinical Impression(s) from Imaging Studies Brain CT 12/17/20 21:50 IMPRESSION: Chronic involutional changes of the brain. Chest X-Ray 12/17/20 22:37 IMPRESSION: Normal x-ray examination of the chest. Brain MRI 12/18/20 01:54 IMPRESSION: 1. No MRI evidence of acute or subacute ischemic infarcts or acute intracranial abnormality. 2. Prominent perivascular spaces in the region of both anterior commissures. 3. Few chronic periventricular white matter ischemic changes in both cerebral hemispheres. 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 Neck MRA 12/18/20 01:54 IMPRESSION: Very Limited MRA of the neck due to excessive motion but the source images did not show any significant stenosis of both carotid arteries and vertebral arteries. Inpatient E&M: 68670 Subs Hosp L2
[2020-12-18 11:09] LABS: Phosphorus 3.2 mg/dL (2.5-4.9)
--- NOTE | 2020-12-18 13:01 | CT_ITS ---
STUDY: CTA HEAD AND NECK WITH CONTRAST REASON FOR EXAM: Female, 80 years old. Cerebral artery occulusion -- MRA with artifact vs right middle CA occlusion RADIATION DOSAGE (If Supplied By Facility): CTDIvol = ( 27.79 ) mGy, DLP = ( 1315.75 ) mGycm TECHNIQUE: CT angiography was performed with a multi-detector CT scanner. Data acquisition was obtained from the skull base through the vertex following intravenous administration of IV 100mL Isovue-370. MIP images were reconstructed from the axial data set. Post-processing of the angiographic images was performed, with multiplanar reformation and 3D reconstruction. Individualized dose optimization techniques were used for this CT. COMPARISON: No relevant priors. FINDINGS: Normal bilateral petrous carotid arteries. Normal right cavernous carotid artery with a normal supraclinoid bifurcation. Normal left cavernous carotid artery with a normal supraclinoid bifurcation. Normal right A1 segment of the anterior cerebral artery. Normal left A1 segment of the anterior cerebral artery. Normal intact anterior communicating artery (ACOM). Normal bilateral A2 segments of the anterior cerebral arteries. Normal right M1 and M2 segments of the middle cerebral arteries, with a normal M1 bifurcation. Normal left M1 and M2 segments of the middle cerebral arteries, with a normal M1 bifurcation. Normal right posterior communicating artery (PCOM). Small left posterior infundibulum of the left posterior communicating artery (PCOM). Normal bilateral vertebral arteries. Normal basilar artery with a normal basilar bifurcation. The visualized bilateral superior cerebellar (SCA) arteries are normal. Normal bilateral P1, P2 and visualized P3 segments of the posterior cerebral arteries. There is no demonstrated aneurysm of the [place] of [place]. There is no demonstrated abnormality of the visualized brain. AORTIC ARCH: Normal visualized aortic arch. Normal origins of the brachiocephalic, left common carotid, and left subclavian arteries. RIGHT CAROTID ARTERIES: Normal right common carotid artery (CCA). Normal right internal carotid bulb. Normal origin of the right internal carotid (ICA) artery without a hemodynamically significant stenosis. Normal visualized cervical portion of the right internal carotid artery. Normal origin of the right external carotid artery (ECA). LEFT CAROTID ARTERIES: Normal left common carotid artery (CCA). Normal left internal carotid bulb. Normal origin of the left internal carotid (ICA) artery without a hemodynamically significant stenosis. Normal visualized cervical portion of the left internal carotid artery. Normal origin of the left external carotid artery (ECA). VERTEBRAL ARTERIES: Normal bilateral vertebral arteries. The right is dominant. CT/CTA Head AND Neck W/ Contrast IMPRESSION: 1. No CTA evidence of right middle cerebral artery occlusion. 2. No CTA evidence of any suspicious significant vaso-occlusive disease of the anterior and posterior intracranial circulation. 3. No CTA evidence of intracranial aneurysm, saccular or fusiform type. 4. Widely patent bilateral common carotid arteries, bilateral common carotid bifurcations, bilateral internal and external carotid arteries and bilateral vertebral arteries. The right vertebral artery is dominant. 5. Normal aortic arch and origins of the great vessels. 6. No CT evidence of mass or lymphadenopathy in the suprahyoid neck and infrahyoid neck. Electronically Signed: Ron Chao MD at 15:59 EDT , Service support ,
[2020-12-18] MEDS: 0.9% Normal Saline 1,000 ML 75 ML IV (14:13)
[2020-12-18] MEDS: Potassium Chloride Oral Tablet 20 MEQ 40 MEQ PO (14:13)
--- NOTE | 2020-12-18 15:29 | NURSING ---
Addendum entered and electronically signed by Sapna Osman 12/18/20 16:32: Return call from Kiki at [facility] and states that they do not take Mcr, their sister KIKA Osullivan #[phone] does and states that Janice Satish per gage Herring is an Aide at [facility] and patient requiring PT/OT. States if gage Herring chooses to pay private pay for to be with [facility] than to call Kiki back after 1999 on Sunday. This technical proposal writer called gage Herring and left a VM with [facility] and to return call. JEFF Little Original Note: Addendum entered and electronically signed by Sapna Osman 12/18/20 15:54: Called [facility] and left a VM to return call to inquire about acceptance for HH. JEFF Little Original Note: Addendum entered and electronically signed by Sapna Osman 12/18/20 15:51: Return call from gage Bocanegra and states preferred - [facility] #[phone], person of contact- Kiki and person requested for service- Janice Covarrubias. Critical Care Educator Regina notified to call gage Herring per request to obtain information regarding financial POA, HPOA. JEFF Little Original Note: RN CM Assessment Called patient gage Villavicencio on phone and left a VM to return call. Return call to this technical proposal writer and Introduced role of RN CM to patient.? Patient is confused/disoriented, gage Herring agreed and able?to participate in RN CM Assessment. ?Care providers, pharmacy, and demographics verified. Admit Dx: TIA/CVA Re-Admit: No Barriers/Issues: Gage Villavicencio yesterday, Patient Justo Bocanegra is . Only support is gage Herring whom is moving in with patient. PCP: Nora Specialists: None Preferred Pharmacy: [facility] Insurance: [facility] A/B, [facility] Benefit:?Yes LNOK: Nima Bocanegra- Son LW/HPOA: Gage Bocanegra as other primary and 1st alt agent are both . Living Arrangements:?Gage Herring moving in with patient at: [address], [place] [address]. 2SH with stair lift. No steps to enter home. ADL?s: Ambulates with walker, Independent with ADLs except son does medication management. Transportation: Gage Herring DME: Walker, grab bars at steps and stair lift, shower chair. HHC: None SNF: None Goal: Home with HH for PT/OT. Gage Herring to call someone he knows that is in HH to acquire HH Agency name for referral as he wants her to be patient HH provider since patient knows who she is. Will call this technical proposal writer back. Denies any other issues, concerns or questions with DC planning at this time. DC PLAN: Home with HH PT/OT. Will Osman RNCM
--- NOTE | 2020-12-18 16:21 | CASEMGMT ---
SOCIAL WORK Sapna SUTHERLAND requesting this worker follow up with patient's son regarding HPOA and financial POA. Call to patient's son, Nima Bocanegra ([phone]). Introduced role. Education provided on HPOA and financial POA. Son reports is listed on patient's current HPOA as his father and brother have . Reviewed therapy evaluation and education provided on SNF. Son states his father was at [facility] and reports [facility] is also close to home. Son states will be in tomorrow to discuss with patient. Informed son a SW will follow up on Sunday to confirm discharge plans. Plan: SW to follow up Sunday, anticipate SNF D. Irma, UX DESIGNER, [employer]
[2020-12-18] MEDS: LORazepam 2 MG/ML Syringe 0.5 MG IV (18:26)
[2020-12-18] MEDS: 0.9% Saline Lock 10 ML Syringe IV (18:26)
[2020-12-18] MEDS: Atorvastatin Calcium 20 MG Tablet PO (21:00)
[2020-12-19] VITALS (13 sets, daily range): BP systolic 109–131; BP diastolic 57–73; PULSE 59–67; RESP 15–18; TEMP 36.9–37.3; O2SAT 95–99; BMI 18.8
[2020-12-19] MEDS: 0.9% Normal Saline 1,000 ML 75 ML IV (04:00)
[2020-12-19 05:50] LABS: Hematocrit 31.9 % (37-47); Hemoglobin 10.1 g/dL (12.0-15.0); Mean Corp Hgb Conc 31.7 g/dL (32-36); Mean Corpuscular Hgb 30.8 pg (27.0-32.0); Mean Corpuscular Volume 97.3 fL (81-99); Mean Platelet Vol. 10.9 fl (6.2-12.0); Platelet Count 200 K/mm3 (150-450); RBC Distribution Width CV 13.1 % (11.6-14.6); RBC Distribution Width SD 46.9 fl (35.1-43.9); Red Blood Count 3.28 M/mm3 (4.2-5.4); White Blood Count 7.5 K/mm3 (4.4-11.0)
[2020-12-19 06:07] LABS: Anion Gap 4 (5-15); BUN 29 mg/dL (7-18); BUN/Creat Ratio 36.8 RATIO (10-20); Calcium,Total 8.2 mg/dL (8.5-10.1); Chloride 113 mmol/L (98-107); Creatinine, Serum 0.79 mg/dL (0.55-1.02); EST Glomerular Filtration Rate 74 mL/min (>60); Est Glom Filt Rate - Afr Amer 90 mL/min (>60); Estimated Creatinine Clearance 40.33 ml/min; Glucose 98 mg/dL (74-106); Potassium 4.7 mmol/L (3.5-5.1); Sodium Level 143 mmol/L (136-145)
[2020-12-19] MEDS: Levothyroxine 75 MCG Tablet PO (06:38)
[2020-12-19] MEDS: Enoxaparin 30 MG/0.3 ML Syringe SC (09:51)
[2020-12-19] MEDS: Paroxetine 20 MG Tablet PO (09:56)
--- NOTE | 2020-12-19 12:41 | PCM.PROGNOTE ---
<Natalia Padron MANAGER PRODUCT MANAGEMENT - Last Filed: 12/19/20 12:58> Patient Problems: Active and Suspected Problems UTI (urinary tract infection) (Acute) Grief reaction (Acute) TIA (transient ischemic attack) (Acute) Periorbital contusion of right eye (Acute) Confusion (Acute) Subjective: Patient seen and examined. Patient is intermittently tearful and states her son recently . Confused intermittently during assessment. No neurologic symptoms or focal deficits. - Physical Exam Vitals/I&O's: Vital Signs Temp Pulse Resp BP Pulse Ox 98.4 F 62 16 129/73 H 99 12/19/20 10:39 12/19/20 10:39 12/19/20 10:39 12/19/20 10:39 12/19/20 10:39 Oxygen Delivery Method Room Air Weight: 138 lb 10.732 oz Body Mass Index (BMI) 18.8 Intake and Output for Last 24 Hours 12/17/20 12/18/20 12/19/20 23:59 23:59 23:59 Intake Total 951.67 / 1051.67 1150 / 1150 Balance 951.67 / 1051.67 1150 / 1150 General: Alert, Cooperative, No apparent distress, - - Tearful HEENT: Atraumatic, PERRLA, EOMI, Normocephalic Neck: Supple, No JVD, Negative Carotid Bruits Lungs: Clear to auscultation, Normal air movement Cardiovascular: Regular rate, No murmurs Abdomen: Bowel Sounds Present, Soft, Non Tender, Non-Distended Extremities: No clubbing, No cyanosis, No edema, Capillary Refill Less than 3 Seconds Skin: No rashes, No breakdown Musculoskeletal: No Tenderness to Palpation of Joints or Extremities Neurological: Cranial nerves II-XII grossly intact, Neuro grossly intact Psych/Mental Status: Normal Affect, Appropriate Microbiology Past 72 Hours 12/17/20 22:20 Urine, Catheterized Urine 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 Laboratory Results 12/19/20 05:35: WBC 7.5, RBC 3.28 L, Hgb 10.1 L, Hct 31.9 L, MCV 97.3, MCH 30.8, MCHC 31.7 L, RDW Std Deviation 46.9 H, RDW Coeff of Jad 13.1, Plt Count 200, MPV 10.9 12/19/20 05:35: Sodium 143, Potassium 4.7, Chloride 113 H, Carbon Dioxide 26.0, Anion Gap 4 L, BUN 29 H, Creatinine 0.79, Estim Creat Clear Calc 40.33, Est GFR (MDRD) Af Amer 90, Est GFR (MDRD) Non-Af 74, BUN/Creatinine Ratio 36.8 H, Glucose 98, Calcium 8.2 L Current Medications Acetaminophen (Acetaminophen 325 Mg Tablet) 650 mg PO Q6H PRN PRN PRN Reason: Pain Score 1-10/Temp > 100.7 F Al Hydroxide/Mg Hydroxide (Mag Hydrox/Al Hydrox/Simeth 30 Ml Udc) 30 ml PO Q6H PRN PRN PRN Reason: Gastric Burning Albuterol Sulfate (Albuterol 2.5 Mg/3 Ml Vial.Neb.) 2.5 mg INHALATION Q2H PRN PRN PRN Reason: Dyspnea, wheezing Alprazolam (Alprazolam 0.25 Mg Tablet) 0.125 mg PO TID PRN PRN PRN Reason: ANXIETY Atorvastatin Calcium (Atorvastatin Calcium 20 Mg Tablet) 20 mg PO QHS [facility] Last Admin: 12/18/20 21:00 Dose: 20 mg Documented by: Enoxaparin Sodium (Enoxaparin 30 Mg/0.3 Ml Syringe) 30 mg SC DAILY [facility] Last Admin: 12/19/20 09:51 Dose: 30 mg Documented by: Guaifenesin (Guaifenesin 10 Ml Udc (200mg/10ml)) 20 ml PO Q4H PRN PRN PRN Reason: COUGH Hydralazine HCl (Hydralazine 20 Mg/Ml Vial) 5 mg IV Q30M PRN PRN Reason: to maintain BP goals Sodium Chloride () 1,000 mls @ 75 mls/hr IV .[id number] [facility] Last Admin: 12/19/20 04:00 Dose: 75 mls/hr Documented by: Ceftriaxone Sodium (Rocephin) 1 gm in 50 mls @ 100 mls/hr IV Q24H [facility] Last Infusion: 12/18/20 21:29 Dose: Infused Documented by: Labetalol HCl (Labetalol (Prefilled) 20 Mg/4 Ml) 10 - 20 mg IV Q10M PRN PRN PRN Reason: to Maintain BP Goals Levothyroxine Sodium (Levothyroxine 75 Mcg Tablet) 75 mcg PO DAILY@0600 [facility] Last Admin: 12/19/20 06:38 Dose: 75 mcg Documented by: Magnesium Hydroxide (Magnesium Hydroxide 30 Ml Udc) 30 ml PO DAILY PRN PRN PRN Reason: Constipation Melatonin (Melatonin 3 Mg Tablet) 3 mg PO QHS PRN PRN PRN Reason: INSOMNIA Nitroglycerin (Nitroglycerin (Inpatient Use) 0.4 Mg Tab.Subl) 0.4 mg SL Q5M PRN PRN Reason: CARDIAC/CHEST PAIN Ondansetron HCl (Ondansetron 4 Mg/2 Ml Vial) 4 mg IV Q8H PRN PRN PRN Reason: NAUSEA/VOMITING Paroxetine HCl (Paroxetine 20 Mg Tablet) 20 mg PO DAILY [facility] Last Admin: 12/19/20 09:56 Dose: 20 mg Documented by: Prochlorperazine Edisylate (Prochlorperazine 10 Mg/2 Ml Vial) 5 mg IV Q4H PRN PRN PRN Reason: Breakthrough Nausea/Vomiting Psyllium Hydrophilic Mucilloid (Psyllium 1 Packet) 1 packet PO DAILY PRN PRN PRN Reason: Constipation Senna/Docusate Sodium (Senna/Docusate Sodium 1 Tablet) 2 tablet PO BID PRN PRN PRN Reason: Constipation Sodium Chloride (0.9% Saline Lock 10 Ml Syringe) 10 - 40 ml IV UD PRN PRN Reason: SALINE FLUSH Last Admin: 12/18/20 18:26 Dose: 10 ml Documented by: Throat Lozenges (Benzocaine/Menthol 1 Lozenge) 1 lozenge MUCOUS MEM Q2H PRN PRN PRN Reason: SORE THROAT Medical Necessity - Tobacco Use Smoking Status: Unknown if ever smoked Tobacco Use: Non-smoker Assessment/Plan All Active Problems UTI (urinary tract infection) (Acute) Grief reaction (Acute) TIA (transient ischemic attack) (Acute) Periorbital contusion of right eye (Acute) Confusion (Acute) Chest pain (Acute) 1. Acute metabolic encephalopathy secondary to acute GNR UTI-IV Rocephin pending culture. PT/OT. MRI without acute or subacute infarcts. MRA of neck was limited due to motion however report suspected right middle cerebral artery occlusion. Follow-up CTA of head and neck showed no evidence of right middle cerebral artery occlusion, patent bilateral common carotid arteries. CVA ruled out. Continue treatment of UTI. Son feels patient needs SNF, case management consulted. 2. Hypertension-not on regimen, blood pressure stable. 3. Chronic kidney disease stage IIIa-stable, trend BMP. 4. Anxiety/depression-on paroxetine, as needed lorazepam. 5. Hyperlipidemia- on statin. 6. Hypothyroidism-continue Synthroid regimen. DVT prophylaxis-Lovenox subcu Discharge planning: SNF at discharge pending facility acceptance. This patient was seen by KUMAR Hui under the supervision of Dr. Cai. <David Cai - Last Filed: 12/19/20 13:12> Subjective: Seen and examined. I agree, patient has grief after recent of her son. Patient still gets confusion and disorientation. Objective: Physical exam General: Awake, intermittently confusion and disorientation. HEENT: Atraumatic, PERRLA, EOMI, Normocephalic Oral: No Gingival or Mucosal Lesions/ Ulcerations Neck: Supple, No JVD, Negative Carotid Bruits Lungs: Air entry diminished in bilateral lung bases. No crepitation/rhonchi Cardiovascular: Regular rate, Regular Rhythm, Normal S1, Normal S2, LLSB systolic murmur Abdomen: Bowel Sounds Present, Soft, Non Tender, Non-Distended : No renal angle tenderness. No suprapubic tenderness. Extremities: No edema, Capillary Refill Less than 3 Seconds Skin: No rashes, No breakdown Musculoskeletal: Muscle strength 4+/5 at major joints. No Tenderness to Palpation of Joints or Extremities Neurological: Cranial nerves II-XII grossly intact, Deep Tendon Reflexes 2+/4, NIH 1 could not tell a month Psych/Mental Status: Sad, tearful - Physical Exam Vitals/I&O's: Vital Signs Temp Pulse Resp BP Pulse Ox 98.4 F 62 16 129/73 H 99 12/19/20 10:39 12/19/20 10:39 12/19/20 10:39 12/19/20 10:39 12/19/20 10:39 Oxygen Delivery Method Room Air Weight: 138 lb 10.732 oz Body Mass Index (BMI) 18.8 Intake and Output for Last 24 Hours 12/17/20 12/18/20 12/19/20 23:59 23:59 23:59 Intake Total 951.67 / 1051.67 1250 / 1250 Balance 951.67 / 1051.67 1250 / 1250 Microbiology Past 72 Hours 12/17/20 22:20 Urine, Catheterized Urine 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 Laboratory Results 12/19/20 05:35: WBC 7.5, RBC 3.28 L, Hgb 10.1 L, Hct 31.9 L, MCV 97.3, MCH 30.8, MCHC 31.7 L, RDW Std Deviation 46.9 H, RDW Coeff of Jad 13.1, Plt Count 200, MPV 10.9 12/19/20 05:35: Sodium 143, Potassium 4.7, Chloride 113 H, Carbon Dioxide 26.0, Anion Gap 4 L, BUN 29 H, Creatinine 0.79, Estim Creat Clear Calc 40.33, Est GFR (MDRD) Af Amer 90, Est GFR (MDRD) Non-Af 74, BUN/Creatinine Ratio 36.8 H, Glucose 98, Calcium 8.2 L Current Medications Acetaminophen (Acetaminophen 325 Mg Tablet) 650 mg PO Q6H PRN PRN PRN Reason: Pain Score 1-10/Temp > 100.7 F Al Hydroxide/Mg Hydroxide (Mag Hydrox/Al Hydrox/Simeth 30 Ml Udc) 30 ml PO Q6H PRN PRN PRN Reason: Gastric Burning Albuterol Sulfate (Albuterol 2.5 Mg/3 Ml Vial.Neb.) 2.5 mg INHALATION Q2H PRN PRN PRN Reason: Dyspnea, wheezing Alprazolam (Alprazolam 0.25 Mg Tablet) 0.125 mg PO TID PRN PRN PRN Reason: ANXIETY Atorvastatin Calcium (Atorvastatin Calcium 20 Mg Tablet) 20 mg PO QHS [facility] Last Admin: 12/18/20 21:00 Dose: 20 mg Documented by: Enoxaparin Sodium (Enoxaparin 30 Mg/0.3 Ml Syringe) 30 mg SC DAILY [facility] Last Admin: 12/19/20 09:51 Dose: 30 mg Documented by: Guaifenesin (Guaifenesin 10 Ml Udc (200mg/10ml)) 20 ml PO Q4H PRN PRN PRN Reason: COUGH Hydralazine HCl (Hydralazine 20 Mg/Ml Vial) 5 mg IV Q30M PRN PRN Reason: to maintain BP goals Sodium Chloride () 1,000 mls @ 75 mls/hr IV .[id number] [facility] Last Admin: 12/19/20 04:00 Dose: 75 mls/hr Documented by: Ceftriaxone Sodium (Rocephin) 1 gm in 50 mls @ 100 mls/hr IV Q24H [facility] Last Infusion: 12/18/20 21:29 Dose: Infused Documented by: Labetalol HCl (Labetalol (Prefilled) 20 Mg/4 Ml) 10 - 20 mg IV Q10M PRN PRN PRN Reason: to Maintain BP Goals Levothyroxine Sodium (Levothyroxine 75 Mcg Tablet) 75 mcg PO DAILY@0600 [facility] Last Admin: 12/19/20 06:38 Dose: 75 mcg Documented by: Magnesium Hydroxide (Magnesium Hydroxide 30 Ml Udc) 30 ml PO DAILY PRN PRN PRN Reason: Constipation Melatonin (Melatonin 3 Mg Tablet) 3 mg PO QHS PRN PRN PRN Reason: INSOMNIA Nitroglycerin (Nitroglycerin (Inpatient Use) 0.4 Mg Tab.Subl) 0.4 mg SL Q5M PRN PRN Reason: CARDIAC/CHEST PAIN Ondansetron HCl (Ondansetron 4 Mg/2 Ml Vial) 4 mg IV Q8H PRN PRN PRN Reason: NAUSEA/VOMITING Paroxetine HCl (Paroxetine 20 Mg Tablet) 20 mg PO DAILY [facility] Last Admin: 12/19/20 09:56 Dose: 20 mg Documented by: Prochlorperazine Edisylate (Prochlorperazine 10 Mg/2 Ml Vial) 5 mg IV Q4H PRN PRN PRN Reason: Breakthrough Nausea/Vomiting Psyllium Hydrophilic Mucilloid (Psyllium 1 Packet) 1 packet PO DAILY PRN PRN PRN Reason: Constipation Senna/Docusate Sodium (Senna/Docusate Sodium 1 Tablet) 2 tablet PO BID PRN PRN PRN Reason: Constipation Sodium Chloride (0.9% Saline Lock 10 Ml Syringe) 10 - 40 ml IV UD PRN PRN Reason: SALINE FLUSH Last Admin: 12/18/20 18:26 Dose: 10 ml Documented by: Throat Lozenges (Benzocaine/Menthol 1 Lozenge) 1 lozenge MUCOUS MEM Q2H PRN PRN PRN Reason: SORE THROAT Assessment/Plan This patient was seen in conjunction with Natalia MCFARLANE. I have independently interviewed and examined the patient and reviewed pertinent history, examination findings, laboratory and plan of management. I have reviewed the note and agree with the documented findings with the few additional points. In brief, patient is admitted for acute metabolic encephalopathy most probably due to UTI. Although patient herself denies burning micturition but she has increased frequency urgency and confused. Urine culture pending. On IV ceftriaxone PT and OT. MRI brain, head and neck reviewed as mentioned below. 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 Subsequently, CTA head and neck was done which did not show hemodynamically significant stenosis or occlusion. A1c 5.3. EKG Sinus rhythm. CKD stage III: K3.4 mild hypokalemia, magnesium normal. Phosphorus normal. Potassium replaced. Repeat BUN/creatinine/29/0.79 Urine culture primary shows more than 100,000 gram-negative wiley. Continue IV ceftriaxone. Grief reaction from recent loss of son: Xanax 0.125 mg 3 times daily as needed. I have discussed my assessment with MANAGER PRODUCT MANAGEMENTNatalia and orders have been reviewed. Clinical Impression(s) from Imaging Studies Head/Neck CTA 12/18/20 13:01 IMPRESSION: 1. No CTA evidence of right middle cerebral artery occlusion. 2. No CTA evidence of any suspicious significant vaso-occlusive disease of the anterior and posterior intracranial circulation. 3. No CTA evidence of intracranial aneurysm, saccular or fusiform type. 4. Widely patent bilateral common carotid arteries, bilateral common carotid bifurcations, bilateral internal and external carotid arteries and bilateral vertebral arteries. The right vertebral artery is dominant. 5. Normal aortic arch and origins of the great vessels. 6. No CT evidence of mass or lymphadenopathy in the suprahyoid neck and infrahyoid neck. Brain CT 12/17/20 21:50 IMPRESSION: Chronic involutional changes of the brain. Chest X-Ray 12/17/20 22:37 IMPRESSION: Normal x-ray examination of the chest. Electronically Signed: Otis Draper DO at 22:59 EDT Tel , Service support , Brain MRI 12/18/20 01:54 IMPRESSION: 1. No MRI evidence of acute or subacute ischemic infarcts or acute intracranial abnormality. 2. Prominent perivascular spaces in the region of both anterior commissures. 3. Few chronic periventricular white matter ischemic changes in both cerebral hemispheres. Electronically Signed: Ron Chao MD at 12:49 EDT , Service support , Head MRA 12/18/20 01:54 IMPRESSION: Study markedly degraded by motion artifact but suspect right middle cerebral artery occlusion. Electronically Signed: Brooks Chapman MD at 12:24 EDT Tel , Service support , Neck MRA 12/18/20 01:54 IMPRESSION: Very Limited MRA of the neck due to excessive motion but the source images did not show any significant stenosis of both carotid arteries and vertebral arteries. Inpatient E&M: [id number] Subs Hosp L2
[2020-12-19] MEDS: MELATONIN 3 MG TABLET PO (21:31)
[2020-12-19] MEDS: Ceftriaxone 1 GM/50 ML BAG IV (21:31)
[2020-12-19] MEDS: Atorvastatin Calcium 20 MG Tablet PO (21:34)
[2020-12-20 02:59] VITALS: PULSE 61
[2020-12-20 03:57] VITALS: BP 130/73; PULSE 62; RESP 16; TEMP 36.7; O2SAT 96
[2020-12-20] MEDS: Levothyroxine 75 MCG Tablet PO (06:18)
[2020-12-20 06:55] LABS: Anion Gap 7 (5-15); BUN 30 mg/dL (7-18); BUN/Creat Ratio 35.3 RATIO (10-20); Calcium,Total 8.1 mg/dL (8.5-10.1); Chloride 111 mmol/L (98-107); Creatinine, Serum 0.85 mg/dL (0.55-1.02); EST Glomerular Filtration Rate 68 mL/min (>60); Est Glom Filt Rate - Afr Amer 83 mL/min (>60); Estimated Creatinine Clearance 50.56 ml/min; Glucose 97 mg/dL (74-106); Potassium 4.3 mmol/L (3.5-5.1); Sodium Level 142 mmol/L (136-145)
[2020-12-20 06:58] VITALS: PULSE 58
[2020-12-20 07:40] VITALS: O2SAT 93
[2020-12-20] MEDS: Enoxaparin 30 MG/0.3 ML Syringe SC (08:45)
[2020-12-20] MEDS: Paroxetine 20 MG Tablet PO (08:47)
[2020-12-20 10:00] VITALS: BP 90/50; PULSE 64; RESP 20; TEMP 37; O2SAT 99
--- NOTE | 2020-12-20 11:55 | PCM.EXTCARCO ---
- Diet 12/18/20 01:54 Diet: Cardiac - Heart Healthy Food consistency:: Regular Liquid Consistency:: Regular/Thin Type of Dietary Supplement:: Ensure Pudding Diet Comments: distant supervision with tray set up - Routine Orders/Code Status Enema Type: Fleetz Enema Frequency: Daily PRN Suppository Type: Dulcolax 10mg Suppository Frequency: Daily PRN Routine Lab Work: - - Weekly BMP, CBC Code Status: Full Code - Wound(s) LEFT SHOULDER Wound Type: Abrasion Coccyx Wound Type: Incontinence irritation - Suggestions for Active Care Change Position every (hours): 2 Times a day to sit in chair: 3 - Therapies Physical Therapy: Eval and Treat Occupational Therapy: Eval and Treat - Problem/Diagnosis (1) Grief reaction Status: Acute (2) UTI (urinary tract infection) Status: Acute (3) Hyperlipidemia Status: Chronic (4) Hypertension Status: Chronic (5) Hypothyroidism Status: Chronic - Allergies/Procedures Done in Hospital Allergies/Adverse Reactions: Allergies Penicillins [PCN] Allergy (Verified 12/17/20 21:44) Other Sulfa (Sulfonamide Antibiotics) Allergy (Verified 08/22/19 14:19) Other PINE Allergy (Uncoded 08/22/19 14:19) Other Procedures: None - Type of Care/Length of Stay Estimated LOS: Convalescent Care Less Than 30 days Type of Care Needed: Skilled Rehab Potential: Fair Prognosis: Fair - Additional Orders/Day of Discharge H&P will serve as current which was dated: 12/17/20 Day of Discharge: 12/20/20 - Dietary and Speech Recommendations Dietitian Recommendations/Changes: Continue Cardiac diet. Will provide ensure pudding w/ pt meals for additional mark/pro if consumed. Speech Linguistic Eval Summary: Pt very pleasant and agreeable to ST. Pt oriented to full name and month/day only. Reoriented to year, current date, name of location, and reason for admission. Pt remains confused and tearful at times. Pt forgetful of son's yesterday and states if you see me crying sometimes it is because my oldest son isn't doing very well. Acknowledgement of feelings and verbal support provided. Pt BURNS PAIUTE requiring repetition of instruction and questions. Pt asked similar questions forgetting answers previously given. - Follow Up Care Primary Care Physician: Booker Melendez MD [Primary Care Provider] - Please follow up with your Primary Care Physician in: 1 Week
[2020-12-20 12:00] VITALS: BP 105/58; PULSE 66; RESP 20; TEMP 37.4; O2SAT 97
--- NOTE | 2020-12-20 12:19 | CASEMGMT ---
WILMER spoke and WILMER Mathew met with patient and her son. Introductions made. WILMER asked about a discharge plan. Patient's son said he would like patient to go to [facility] for rehab. Patient was in agreement. WILMER asked if patient had her COVID vaccines and she has not. WILMER then told them that she will have to quarantine for 14 days and that means no visitors. They still want to proceed with SNF. WILMER told them SW will make the referral to [facility]. WILMER explained patient will stay here until SW has everything lined up. Referral was made to [facility]. Await response. Beti Arambula GRIPPER ATTACHER [employer]
--- NOTE | 2020-12-20 12:20 | PCM.DC.SUM ---
<Natalia Padron MESSAGE BROKER DEVELOPER - Last Filed: 12/20/20 12:27> Discharge Date and Diagnosis - Problem List Patient Problems: Active and Suspected Problems UTI (urinary tract infection) (Acute) Grief reaction (Acute) TIA (transient ischemic attack) (Acute) Periorbital contusion of right eye (Acute) Confusion (Acute) Date of Admission: 12/17/20 Date of Discharge: 12/20/20 - Primary Discharge Diagnosis Acute Problems: Active Problems 1. Acute metabolic encephalopathy secondary to acute GNR UTI 2. Hypertension 3. Chronic kidney disease stage IIIa 4. Anxiety/depression 5. Hyperlipidemia 6. Hypothyroidism - Secondary Discharge Diagnosis Chronic Problems: Chronic Problems Elevated liver function tests (Chronic) Hypertension (Chronic) Hyperlipidemia (Chronic) Hypothyroidism (Chronic) Hospital Course and Treatment Imaging Results: Diagnostic Data Brain CT 12/17/20 21:50 IMPRESSION: Chronic involutional changes of the brain. Electronically Signed: Otis Draper DO at 23:00 EDT Tel , Service support , Chest X-Ray 12/17/20 22:37 IMPRESSION: Normal x-ray examination of the chest. Electronically Signed: Otis Draper DO at 22:59 EDT Tel , Service support , Brain MRI 12/18/20 01:54 IMPRESSION: 1. No MRI evidence of acute or subacute ischemic infarcts or acute intracranial abnormality. 2. Prominent perivascular spaces in the region of both anterior commissures. 3. Few chronic periventricular white matter ischemic changes in both cerebral hemispheres. Electronically Signed: Ron Chao MD at 12:49 EDT , Service support , Head MRA 12/18/20 01:54 IMPRESSION: Study markedly degraded by motion artifact but suspect right middle cerebral artery occlusion. Electronically Signed: Brooks Chapman MD at 12:24 EDT Tel , Service support , Neck MRA 12/18/20 01:54 IMPRESSION: Very Limited MRA of the neck due to excessive motion but the source images did not show any significant stenosis of both carotid arteries and vertebral arteries. Electronically Signed: Ron Chao MD at 12:51 EDT , Service support , Head/Neck CTA 12/18/20 13:01 IMPRESSION: 1. No CTA evidence of right middle cerebral artery occlusion. 2. No CTA evidence of any suspicious significant vaso-occlusive disease of the anterior and posterior intracranial circulation. 3. No CTA evidence of intracranial aneurysm, saccular or fusiform type. 4. Widely patent bilateral common carotid arteries, bilateral common carotid bifurcations, bilateral internal and external carotid arteries and bilateral vertebral arteries. The right vertebral artery is dominant. 5. Normal aortic arch and origins of the great vessels. 6. No CT evidence of mass or lymphadenopathy in the suprahyoid neck and infrahyoid neck. Electronically Signed: Ron Chao MD at 15:59 EDT , Service support , Operations: None Procedures: None Summary of Care Provided: The patient is a 80 year old F admitted 12/17/2020 due to facial droop, slurred speech. 1. Acute metabolic encephalopathy secondary to acute GNR UTI-IV Rocephin during admission, transition to Keflex at discharge to complete course. MRI without acute or subacute infarcts. MRA of neck was limited due to motion however report suspected right middle cerebral artery occlusion. Follow-up CTA of head and neck showed no evidence of right middle cerebral artery occlusion, patent bilateral common carotid arteries. CVA ruled out. Of note, patient's eldest son day of presentation and patient demonstrates grief reaction related to this. This may be contributing to onset of symptoms as well. Encouraged patient to seek out outpatient grief counseling. Follow-up with PCP in 1 week. 2. Hypertension-not on regimen, blood pressure stable. 3. Chronic kidney disease stage IIIa-stable, trend BMP. 4. Anxiety/depression-on paroxetine, as needed lorazepam. 5. Hyperlipidemia- on statin. 6. Hypothyroidism-continue Synthroid regimen. General: Alert, Cooperative, No apparent distress, Tearful HEENT: Atraumatic, PERRLA, EOMI, Normocephalic Neck: Supple, No JVD, Negative Carotid Bruits Lungs: Clear to auscultation, Normal air movement Cardiovascular: Regular rate, No murmurs Abdomen: Bowel Sounds Present, Soft, Non Tender, Non-Distended Extremities: No clubbing, No cyanosis, No edema, Capillary Refill Less than 3 Seconds Skin: No rashes, No breakdown Musculoskeletal: No Tenderness to Palpation of Joints or Extremities Neurological: Cranial nerves II-XII grossly intact, Neuro grossly intact Psych/Mental Status: Normal Affect, Appropriate Patient seen and examined prior to discharge. Physical assessment as noted above. Patient is stable for discharge with follow up recommendations as noted above. This patient was seen by KUMAR Hui under the supervision of Dr. Christensen. Patient Problems: Active and Suspected Problems UTI (urinary tract infection) (Acute) Grief reaction (Acute) TIA (transient ischemic attack) (Acute) Periorbital contusion of right eye (Acute) Confusion (Acute) - Physical Exam Vitals/I&O's: Vital Signs Temp Pulse Resp BP Pulse Ox 98.6 F 64 20 H 90/50 L 99 12/20/20 10:00 12/20/20 10:00 12/20/20 10:00 12/20/20 10:00 12/20/20 10:00 Oxygen Delivery Method Room Air Weight: 136 lb 0.403 oz Body Mass Index (BMI) 18.8 Intake and Output for Last 24 Hours 12/18/20 12/19/20 12/20/20 23:59 23:59 23:59 Intake Total 951.67 / 1051.67 2425 / 2425 0 / 0 Balance 951.67 / 1051.67 2425 / 2425 0 / 0 Microbiology Past 72 Hours 12/17/20 22:20 Urine, Catheterized Urine Culture - Preliminary GNR lactose housekeeper head 12/18/20 00:50 Blood Culture (Wb) - Anticubital Right Blood Culture - Preliminary No growth in 48 hours. 12/18/20 00:35 Blood Culture (Wb) - Anticubital Left Blood Culture - Preliminary No growth in 48 hours. Laboratory Results 12/20/20 06:00: Sodium 142, Potassium 4.3, Chloride 111 H, Carbon Dioxide 24.0, Anion Gap 7, BUN 30 H, Creatinine 0.85, Estim Creat Clear Calc 50.56, Est GFR (MDRD) Af Amer 83, Est GFR (MDRD) Non-Af 68, BUN/Creatinine Ratio 35.3 H, Glucose 97, Calcium 8.1 L Current Medications Acetaminophen (Acetaminophen 325 Mg Tablet) 650 mg PO Q6H PRN PRN PRN Reason: Pain Score 1-10/Temp > 100.7 F Albuterol Sulfate (Albuterol 2.5 Mg/3 Ml Vial.Neb.) 2.5 mg INHALATION Q2H PRN PRN PRN Reason: Dyspnea, wheezing Alprazolam (Alprazolam 0.25 Mg Tablet) 0.125 mg PO TID PRN PRN PRN Reason: ANXIETY Atorvastatin Calcium (Atorvastatin Calcium 20 Mg Tablet) 20 mg PO QHS [facility] Last Admin: 12/19/20 21:34 Dose: 20 mg Documented by: Cephalexin (Cephalexin 500 Mg Capsule) 500 mg PO Q6 [facility] Stop: 12/25/20 18:01 Enoxaparin Sodium (Enoxaparin 40 Mg/0.4 Ml Syringe) 40 mg SC DAILY [facility] Guaifenesin (Guaifenesin 10 Ml Udc (200mg/10ml)) 20 ml PO Q4H PRN PRN PRN Reason: COUGH Hydralazine HCl (Hydralazine 20 Mg/Ml Vial) 5 mg IV Q30M PRN PRN Reason: to maintain BP goals Labetalol HCl (Labetalol (Prefilled) 20 Mg/4 Ml) 10 - 20 mg IV Q10M PRN PRN PRN Reason: to Maintain BP Goals Levothyroxine Sodium (Levothyroxine 75 Mcg Tablet) 75 mcg PO DAILY@0600 [facility] Last Admin: 12/20/20 06:18 Dose: 75 mcg Documented by: Melatonin (Melatonin 3 Mg Tablet) 3 mg PO QHS PRN PRN PRN Reason: INSOMNIA Last Admin: 12/19/20 21:31 Dose: 3 mg Documented by: Nitroglycerin (Nitroglycerin (Inpatient Use) 0.4 Mg Tab.Subl) 0.4 mg SL Q5M PRN PRN Reason: CARDIAC/CHEST PAIN Nutritional Formula (Lactose Free) (Ensure Enlive 120 Ml Liquid) 120 ml PO 4X/DAY [facility] Last Admin: 12/20/20 08:45 Dose: 120 ml Documented by: Ondansetron HCl (Ondansetron 4 Mg/2 Ml Vial) 4 mg IV Q8H PRN PRN PRN Reason: NAUSEA/VOMITING Paroxetine HCl (Paroxetine 20 Mg Tablet) 20 mg PO DAILY [facility] Last Admin: 12/20/20 08:47 Dose: 20 mg Documented by: Prochlorperazine Edisylate (Prochlorperazine 10 Mg/2 Ml Vial) 5 mg IV Q4H PRN PRN PRN Reason: Breakthrough Nausea/Vomiting Psyllium Hydrophilic Mucilloid (Psyllium 1 Packet) 1 packet PO DAILY PRN PRN PRN Reason: Constipation Senna/Docusate Sodium (Senna/Docusate Sodium 1 Tablet) 2 tablet PO BID PRN PRN PRN Reason: Constipation Sodium Chloride (0.9% Saline Lock 10 Ml Syringe) 10 - 40 ml IV UD PRN PRN Reason: SALINE FLUSH Last Admin: 12/18/20 18:26 Dose: 10 ml Documented by: Throat Lozenges (Benzocaine/Menthol 1 Lozenge) 1 lozenge MUCOUS MEM Q2H PRN PRN PRN Reason: SORE THROAT Home Medications: Medications to take at Discharge Cholecalciferol (Vitamin D3) [Vitamin D3] 1,000 unit PO DAILY 03/15/14 Levothyroxine [Synthroid] 75 mcg PO DAILY 03/15/14 Atorvastatin Calcium 20 mg DAILY 12/17/20 Paroxetine HCl 10 mg DAILY PRN 12/17/20 ALPRAZolam [Xanax] 0.125 mg PO BID PRN PRN #4 tablet 12/20/20 Cephalexin [Keflex] 500 mg PO Q6 capsule 12/20/20 Following Prescriptions Were Given to Patient: ALPRAZolam [Xanax] 0.125 mg PO BID PRN PRN #4 tablet PRN Reason: Anxiety Prescription Printed Primary Care Physician: Booker Melendez MD [Primary Care Provider] - Please follow up with your Primary Care Physician in: 1 Week Disposition: Retirement facility Minutes spent on discharge:: 35 Patient Condition:: Stable Medical Necessity - Tobacco Use Smoking Status: Unknown if ever smoked Tobacco Use: Non-smoker Meaningful Use Info Meaningful Use Diagnoses (Choose all that apply): None applicable <Nuamah,Gaylord - Last Filed: 12/20/20 15:15> Discharge Date and Diagnosis - Primary Discharge Diagnosis Acute Problems: Active Problems UTI (urinary tract infection) (Acute) Grief reaction (Acute) TIA (transient ischemic attack) (Acute) Periorbital contusion of right eye (Acute) Confusion (Acute) - Secondary Discharge Diagnosis Chronic Problems: Chronic Problems Elevated liver function tests (Chronic) Hypertension (Chronic) Hyperlipidemia (Chronic) Hypothyroidism (Chronic) Hospital Course and Treatment Summary of Care Provided: This patient was seen in conjunction with Natalia Padron MESSAGE BROKER DEVELOPER. I have independently interviewed and examined the patient and reviewed pertinent historical, laboratory, and other data. Please refer to her note for patient's presentation, findings, and recommendations. 80-year-old female who presented with facial droop and slurred speech. She was admitted for acute stroke work-up. Patient's work-up was negative. She was also found to have acute UTI. Patient was managed on IV Rocephin. She was transitioned to Keflex. She continued to be stable. Patient was evaluated by PT and OT and recommended to be discharged to detention facility. On the day of discharge, patient was seen and examined. She is alert, oriented x3. She denied any new complaints. No acute events overnight. Vitals were reviewed -stable Physical Exam: Gen:Comfortable, not pale, not jaundiced, alert oriented x3, appears frail CVS:HS I +II, regular, no murmurs RESP: Diminished at lung bases GI: BS present and normal, nontender, no palpable organs EXT:No edema - Physical Exam Vitals/I&O's: Vital Signs Temp Pulse Resp BP Pulse Ox 99.3 F H 66 20 H 105/58 L 97 12/20/20 12:00 12/20/20 12:00 12/20/20 12:00 12/20/20 12:00 12/20/20 12:00 Oxygen Delivery Method Room Air Weight: 61.7 kg Body Mass Index (BMI) 18.8 Intake and Output for Last 24 Hours 12/18/20 12/19/20 12/20/20 23:59 23:59 23:59 Intake Total 951.67 / 1051.67 2425 / 2425 360 / 360 Balance 951.67 / 1051.67 2425 / 2425 360 / 360 Microbiology Past 72 Hours 12/20/20 13:08 Mucosa - Nose SARS-CoV-2 Antigen (Rapid) - Final 12/17/20 22:20 Urine, Catheterized Urine Culture - Preliminary GNR lactose housekeeper head 12/18/20 00:50 Blood Culture (Wb) - Anticubital Right Blood Culture - Preliminary No growth in 48 hours. 12/18/20 00:35 Blood Culture (Wb) - Anticubital Left Blood Culture - Preliminary No growth in 48 hours. Laboratory Results 12/20/20 06:00: Sodium 142, Potassium 4.3, Chloride 111 H, Carbon Dioxide 24.0, Anion Gap 7, BUN 30 H, Creatinine 0.85, Estim Creat Clear Calc 50.56, Est GFR (MDRD) Af Amer 83, Est GFR (MDRD) Non-Af 68, BUN/Creatinine Ratio 35.3 H, Glucose 97, Calcium 8.1 L Current Medications Acetaminophen (Acetaminophen 325 Mg Tablet) 650 mg PO Q6H PRN PRN PRN Reason: Pain Score 1-10/Temp > 100.7 F Albuterol Sulfate (Albuterol 2.5 Mg/3 Ml Vial.Neb.) 2.5 mg INHALATION Q2H PRN PRN PRN Reason: Dyspnea, wheezing Alprazolam (Alprazolam 0.25 Mg Tablet) 0.125 mg PO TID PRN PRN PRN Reason: ANXIETY Atorvastatin Calcium (Atorvastatin Calcium 20 Mg Tablet) 20 mg PO QHS [facility] Last Admin: 12/19/20 21:34 Dose: 20 mg Documented by: Cephalexin (Cephalexin 500 Mg Capsule) 500 mg PO Q6 [facility] Stop: 12/25/20 18:01 Enoxaparin Sodium (Enoxaparin 40 Mg/0.4 Ml Syringe) 40 mg SC DAILY [facility] Guaifenesin (Guaifenesin 10 Ml Udc (200mg/10ml)) 20 ml PO Q4H PRN PRN PRN Reason: COUGH Hydralazine HCl (Hydralazine 20 Mg/Ml Vial) 5 mg IV Q30M PRN PRN Reason: to maintain BP goals Labetalol HCl (Labetalol (Prefilled) 20 Mg/4 Ml) 10 - 20 mg IV Q10M PRN PRN PRN Reason: to Maintain BP Goals Levothyroxine Sodium (Levothyroxine 75 Mcg Tablet) 75 mcg PO DAILY@0600 [facility] Last Admin: 12/20/20 06:18 Dose: 75 mcg Documented by: Melatonin (Melatonin 3 Mg Tablet) 3 mg PO QHS PRN PRN PRN Reason: INSOMNIA Last Admin: 12/19/20 21:31 Dose: 3 mg Documented by: Nitroglycerin (Nitroglycerin (Inpatient Use) 0.4 Mg Tab.Subl) 0.4 mg SL Q5M PRN PRN Reason: CARDIAC/CHEST PAIN Nutritional Formula (Lactose Free) (Ensure Enlive 120 Ml Liquid) 120 ml PO 4X/DAY [facility] Last Admin: 12/20/20 08:45 Dose: 120 ml Documented by: Ondansetron HCl (Ondansetron 4 Mg/2 Ml Vial) 4 mg IV Q8H PRN PRN PRN Reason: NAUSEA/VOMITING Paroxetine HCl (Paroxetine 20 Mg Tablet) 20 mg PO DAILY [facility] Last Admin: 12/20/20 08:47 Dose: 20 mg Documented by: Prochlorperazine Edisylate (Prochlorperazine 10 Mg/2 Ml Vial) 5 mg IV Q4H PRN PRN PRN Reason: Breakthrough Nausea/Vomiting Psyllium Hydrophilic Mucilloid (Psyllium 1 Packet) 1 packet PO DAILY PRN PRN PRN Reason: Constipation Senna/Docusate Sodium (Senna/Docusate Sodium 1 Tablet) 2 tablet PO BID PRN PRN PRN Reason: Constipation Sodium Chloride (0.9% Saline Lock 10 Ml Syringe) 10 - 40 ml IV UD PRN PRN Reason: SALINE FLUSH Last Admin: 12/18/20 18:26 Dose: 10 ml Documented by: Throat Lozenges (Benzocaine/Menthol 1 Lozenge) 1 lozenge MUCOUS MEM Q2H PRN PRN PRN Reason: SORE THROAT Inpatient E&M: [id number] [facility]
--- NOTE | 2020-12-20 12:41 | PHA.DC.MR ---
Pharmacy Service has performed discharge medication reconciliation for this patient. The patient's discharge medication list was reviewed for discrepancies and discrepancies were resolved. Home Medications Cholecalciferol (Vitamin D3) [Vitamin D3] 1,000 unit PO DAILY 03/15/14 Levothyroxine [Synthroid] 75 mcg PO DAILY 03/15/14 Atorvastatin Calcium 20 mg DAILY 12/17/20 Paroxetine HCl 10 mg DAILY PRN 12/17/20 ALPRAZolam [Xanax] 0.125 mg PO BID PRN PRN #4 tablet 12/20/20 Cephalexin [Keflex] 500 mg PO Q6 capsule 12/20/20
--- NOTE | 2020-12-20 14:21 | CASEMGMT ---
Addendum entered by Beti Arambula 12/20/20 14:35: Patient was notified of fruit or nut picker time. Beti EAGLE Original Note: WILMER spoke with Kaitlynn from [facility] and they can accept patient. SW spoke with patient's son and he will be in to see patient again before she goes. WILMER told him SW will work on setting up transportation for around 3p. WILMER arranged for patient to get picked up, but at 330p instead via [facility] wheelchair. WILMER notified RNKaitlynn at [facility], and guidance secretary. SW will let patient know as well. Convalescent completed on . Plan: d/c to [facility] under skilled level of care on a convalescent stay. [facility] transported via wheelchair van. Beti EAGLE
--- NOTE | 2020-12-20 14:22 | NURSING ---
called [facility] and spoke with Shantal, report given. Transport to be here @ [phone] [facility].
--- NOTE | 2020-12-20 14:48 | CASEMGMT ---
SW did not complete a PHQ 9 as per chart patient did not have a Stroke or TIA. 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
== END 2020-12-20 16:20 | disposition skilled nursing facility (03) | DRG 689 ==
LOC: ED 12-18 00:16 → PCU 12-18 02:07
PROVIDERS: Internal Medicine; Nurse Practitioner Family; Admitting Provider Family Medicine; Emergency Provider Emergency Medicine; PCP Family Medicine; Visit Provider Internal Medicine
DX: N39.0 Urinary tract infection, site not specified (principal); G93.41 Metabolic encephalopathy; B96.89 Other specified bacterial agents as the cause of diseases classified elsewhere; I12.9 Hypertensive chronic kidney disease with stage 1 through stage 4 chronic kidney disease, or unspecified chronic kidney disease; N18.31 Chronic kidney disease, stage 3a; E78.5 Hyperlipidemia, unspecified; E03.9 Hypothyroidism, unspecified; F43.22 Adjustment disorder with anxiety; F32.9 Major depressive disorder, single episode, unspecified; S00.11XA Contusion of right eyelid and periocular area, initial encounter; X58.XXXA Exposure to other specified factors, initial encounter; E87.6 Hypokalemia; R29.701 NIHSS score 1; R29.810 Facial weakness; R47.81 Slurred speech; Z79.899 Other long term (current) drug therapy
CPT/HCPCS: 36415; 70450; 70496; 70498; 70544; 70547; 70551; 71045; 80048; 80053; 80061; 81001; 83036; 83605; 83735; 84100; 84443; 84484; 85025; 85027; 87040; 87077; 87086; 87088; 87186; 87426; 92507; 92523; 92610; 93005; 94762; 97110; 97162; 97166; 97530; 97535; 99251; 99285; J7030; Q9957; Q9967; A4216; G0463

== ENCOUNTER 2021-06-27 09:30 | Observation (INO) | payer MEDICARE, BC, SELFPAY ==
[2021-06-27] VITALS (10 sets, daily range): BP systolic 110–147; BP diastolic 64–95; PULSE 55–123; RESP 18–22; TEMP 36.1–36.9; O2SAT 95–100; BMI 24.0; BMI 24.6
--- NOTE | 2021-06-27 09:48 | EKG12_ITS ---
Test Reason : SYNCOPE Blood Pressure : / mmHG Vent. Rate : 065 BPM Atrial Rate : 065 BPM P-R Int : 172 ms QRS Dur : 082 ms QT Int : 404 ms P-R-T Axes : 053 -65 013 degrees QTc Int : 420 ms Normal sinus rhythm Left anterior fascicular block Jerrod- Septal infarct , age undetermined Abnormal ECG Confirmed by AHMET HERNANDEZ, ALEJO ([id number]), newspaper editor managing SEMAJ BALBUENA ([id number]) on 06/29/2021 8:22:17 AM Referred By: OZZY Confirmed By:ALEJO LEO MD
--- NOTE | 2021-06-27 09:48 | EX.ED.DYSGE1 ---
HPI History of Present Illness Chief Complaint: Syncope Informant: patient and family Onset/Context/Timing Onset: Today Context: Sudden Onset Current Severity: Gone Maximum Severity: Moderate Narrative Narrative: 81-year-old female history of renal insufficiency and prior breast cancer. Patient was seen in the breakfast table today and passed out for about 3 minutes according her son. He was there with her. She did not fall or get injured. Basically slumped over and was unresponsive. Prior to the event she denies any symptoms. She is not having any chest pain or shortness of breath. She is not recently been ill or hospitalized. She denies any nausea vomiting or diarrhea. She has no known cardiac history. Prior similar symptoms: No Recent Illness/Hospitalization: No [facility] Medical History (Updated 06/27/21 @ 13:[address] Ray Nicole MD) HLD (hyperlipidemia) HTN (hypertension) Home Medications cholecalciferol (vitamin D3) [Vitamin D3] 1,000 unit PO DAILY 03/15/14 [History Last Taken 06/27/21] atorvastatin 20 mg PO QHS 12/17/20 [History Last Taken 06/25/21] citalopram 20 mg PO DAILY 06/27/21 [History Last Taken 06/27/21] levothyroxine 100 mcg PO DAILY 06/27/21 [History Last Taken 06/27/21] Allergy/AdvReac Type Severity Reaction Status Date / Time Penicillins [PCN] Allergy Other Verified 12/17/20 21:44 Sulfa (Sulfonamide Allergy Other Verified 08/22/19 14:19 Antibiotics) PINE Allergy Other Uncoded 08/22/19 14:19 Surgical History (Updated 06/27/21 @ 10:11 by Sapna Espinoza) History of appendectomy History of knee joint replacement Social History Smoking Status: Never smoker ROS ROS ED ROS Narrative Denies recent illness. Review of Systems ROS Unobtainable: Denies due to encephalopathy Constitutional Constitutional ED: Denies chills or fever(s) Eyes Eyes: Denies change in vision ENT ENT ED: Denies ear pain Cardiovascular Cardiovascular: Denies chest pain or palpitations Respiratory/Chest Respiratory/Chest: Denies cough or dyspnea Gastrointestinal Gastrointestinal: Reports nausea; Denies abdominal pain, diarrhea or vomiting Genitourinary Genitourinary ED: Denies dysuria Musculoskeletal Musculoskeletal: Denies myalgias Integumentary Denies rash Neurologic Neurologic: Denies headache(s) Psychiatric Psychiatric: Denies depression Endocrine Endocrinology: Denies polyuria Allergic/Immunologic Allergic/Immunologic ED: Denies urticaria EXAM Physical Exam Narrative Exam Narrative: 81-year-old female no acute distress. Vital signs stable afebrile. Pulse ox 9% on room air no signs of hypoxia. HEENT exam unremarkable. No facial droop. Normal speech. No trauma. Neck nontender. Lungs clear to auscultation bilaterally. Heart regular rate and rhythm rate about 60 no murmur. Chest were nontender. Abdomen soft nontender. Moving all 4 extremities. Equal symmetrical 5 out of 5 radio talk show host strength. Dorsi plantarflexion intact. Calves nontender no edema back nontender. Neurologic exam normal. NIH is 0. Const Vital Signs: 06/27/21 09:30 06/27/21 10:10 Temperature 98.1 F Temperature Source Temporal Pulse Rate 62 65 Respiratory Rate 18 22 H Respiratory Effort Normal Non-Labored Respiratory Pattern Normal Blood Pressure 131/74 H 124/72 H Blood Pressure Mean 93 89 Pulse Ox 100 98 Oxygen Delivery Method Room Air Room Air Positive well nourished and well developed; Negative for obese, cachectic, contractures or unkempt General Appearance ED: well developed and NAD; Negative for unkempt, cachectic, contractures, cyanotic, diaphoretic or pallor Nutritional Appearance: Negative for cachectic or obese HEENT Reports moist mucous membranes Negative for trauma or tenderness Eyes PERRL and EOMs intact bilaterally Neck no lymphadenopathy, supple and no JVD General: Negative for tenderness Chest Wall inspection of chest normal and palpation of chest normal Resp normal respiratory effort and clear to auscultation bilaterally Auscultation: Negative for rales, rhonchi or wheezes Cardio regular rate, regular rhythm, S1 normal heart sound, S2 normal heart sound and no murmurs GI normal to inspection, nondistended, normoactive bowel sounds, non-tender, non-distended and no masses Auscultation: normoactive bowel sounds Palpation: soft; Negative for tender, guarding or rebound tenderness present Back/Spine no CVA tenderness Cervical Spine: Negative for cervical spine tenderness Thoracic Spine / Upper Back: Negative for thoracic spinal tenderness Extremity normal to inspection General Extremety ED: Negative for edema or tenderness General Extremity: Negative for edema Neuro oriented x3, CN's II-XII intact bilaterally and No no sensory deficits noted Sensorium / Orientation: alert; Negative for orientation impaired, lethargic or stuporous Motor Exam: strength 5/5 throughout Psych mental status grossly normal Appearance: Negative for unkempt Attitude: No agitated Mood & Affect: Negative for depressed or tearful Skin no rashes or lesions noted and no wounds General Skin Exam: Negative for jaundice or pallor MDM MDM MDM Narrative Medical decision making narrative: 81-year-old female without any significant past medical history of the renal insufficiency and prior breast cancer. Had a syncopal event today at breakfast. Reportedly was unconscious for 3 minutes. Exam currently is normal. She will undergo a work-up for syncope. She is complaining of nausea will be treated with Zofran. Repeat exam patient is doing well at 1:50 PM. I went over all test results with the patient and her family. We discussed admission for Lab Data Attestation: I reviewed the patient's lab results. Lab results narrative: CBC shows white count 6. Hemoglobin 12.7. Electrolytes unremarkable gap of 3 BUN 35 creatinine 0.9. Glucose 119. Troponin normal at 5. Labs: Laboratory Results - last 24 hr 06/27/21 06/27/21 10:00 10:00 WBC 6.1 RBC 4.01 L Hgb 12.7 Hct 39.5 MCV 98.5 MCH 31.7 MCHC 32.2 RDW Std Deviation 46.8 H RDW Coeff of Jad 12.9 Plt Count 214 MPV 10.8 Immature Gran % (Auto) 0.500 Neut % (Auto) 80.6 H Lymph % (Auto) 10.7 L [place] % (Auto) 6.4 Eos % (Auto) 1.1 Baso % (Auto) 0.7 Absolute Neuts (auto) 5.0 Absolute Lymphs (auto) 0.66 L Nucleated RBC % 0 Sodium 141 Potassium 4.1 Chloride 110 H Carbon Dioxide 28.0 Anion Gap 3 L BUN 35 H Creatinine 0.92 Estim Creat Clear Calc 49.27 Est GFR (MDRD) Af Amer 75 Est GFR (MDRD) Non-Af 62 BUN/Creatinine Ratio 38.0 H Glucose 119 H Calcium 8.7 Troponin I High Sens 5 Radiography Chest X-Ray - ED: 1 View, Read by ED Physician, Read by Radiologist, Heart, Lungs, Mediastinum, Bony Structures, No Acute Disease and Chronic Changes Diagnostic Testing: Clinical Impression(s) from Imaging Studies Chest X-Ray 06/27/21 10:19 IMPRESSION: Large hiatal hernia. The lungs are clear. Electronically Signed: Samuel Britton MD at 10:40 EDT , Service support , Chest x-ray single view interpreted by myself the radiologist shows hiatal hernia otherwise no acute abnormality. Rhythm Strip Rhythm Strip: Sinus Rhythm Rate: 65 Ectopy: None EKG Initial EKG: Attestation: I personally reviewed and interpreted this EKG as follows: Interpretation: Sinus Rhythm and No Acute Injury Pattern Comments: Normal sinus rhythm rate of 65 no acute signs of DE or ischemia. Discharge Plan Dx/Rx/DC Orders Clinical Impression: Syncope Disposition Disposition: Acute Care Hospital [facility]
[2021-06-27] MEDS: Ondansetron 4 MG/2 ML Vial IV (10:10)
[2021-06-27 10:13] LABS: Absolute Lymphocyte Count 0.66 X10^3/uL (0.83-4.51); Basophil# 0.04 X10^3/uL; Basophil% 0.7 % (0-1); Eosinophil# 0.07 X10^3/uL; Eosinophils% 1.1 % (0-5); Hematocrit 39.5 % (37-47); Hemoglobin 12.7 g/dL (12.0-15.0); Lymphocyte # 0.66 X10^3/ul (0.83-4.51); Lymphocyte % 10.7 % (19-41); Mean Corp Hgb Conc 32.2 g/dL (32-36); Mean Corpuscular Hgb 31.7 pg (27.0-32.0); Mean Corpuscular Volume 98.5 fL (81-99); Mean Platelet Vol. 10.8 fl (6.2-12.0); Monocyte# 0.39 X10^3/uL; Monocyte% 6.4 % (0-10); NRBC Flagged by Analyzer 0 % (0-5); Neutrophil # 4.95 X10^3/uL (2.7-7.7); Neutrophil % 80.6 % (47-70); Platelet Count 214 K/mm3 (150-450); RBC Distribution Width CV 12.9 % (11.6-14.6); RBC Distribution Width SD 46.8 fl (35.1-43.9); Red Blood Count 4.01 M/mm3 (4.2-5.4); White Blood Count 6.1 K/mm3 (4.4-11.0)
--- NOTE | 2021-06-27 10:19 | RAD_ITS ---
STUDY: X-RAY CHEST REASON FOR EXAM: Female, 81 years old. Chest pain TECHNIQUE: Single AP portable view of the chest. COMPARISON: Comparison is made with prior study dated 12/17/2020. FINDINGS: EKG electrodes are seen. Surgical clips are seen in the right axillary region. The lungs are clear and expanded. There is no demonstrated pleural abnormality. There is moderate cardiac enlargement. Normal mediastinum and bradly. Normal visualized pulmonary arteries. There is atherosclerotic tortuosity of the aortic arch and descending thoracic aorta. Normal visualized thoracic spine. There is degenerative osteoarthritis of the bilateral shoulders. Large hiatal hernia. RAD/Chest 1 View (Portable) IMPRESSION: Large hiatal hernia. The lungs are clear. Electronically Signed: Samuel Britton MD at 10:40 EDT , Service support ,
[2021-06-27 10:36] LABS: Anion Gap 3 (5-15); BUN 35 mg/dL (7-18); Calcium,Total 8.7 mg/dL (8.5-10.1); Chloride 110 mmol/L (98-107); Creatinine, Serum 0.92 mg/dL (0.55-1.02); EST Glomerular Filtration Rate 62 mL/min (>60); Est Glom Filt Rate - Afr Amer 75 mL/min (>60); Estimated Creatinine Clearance 49.27 ml/min; Glucose 119 mg/dL (74-106); Potassium 4.1 mmol/L (3.5-5.1); Sodium Level 141 mmol/L (136-145); Troponin-I HS 5 pg/mL (3.0-54.0)
--- NOTE | 2021-06-27 14:22 | HP.PCM.HOS_ITS ---
HPI - General General Date of Admission: 06/27/21 Date of Service: 06/27/21 Chief Complaint: Syncopal episode HPI Narrative The patient is an 81 y/o F w/ PMHx: Dementia unclear type with severe anxiety with underlying Anxiety and Depression, Hx breast CA, Hypothyroidism, Hx HTN no currently on regimen, HLD who presents to the [facility] ED on 06/27/21 with history of being at the kitchen table with her son who lives with her and helps care for her with sudden onset without any prodrome syncopal event, slipping back into her chair with pulse and appropriate respirations, recovering after approximately 2 minutes with only 1 to 2 seconds per her son of confusion and then returning completely to her self with no reported lightheadedness, diz ziness, dyspnea, chest pain. Son does report she is extremely emotionally labile and will have frequent bursts of crying if she is upset at all. Work-up in the ED included T 97, heart rate 62, BP 142/90, respiratory rate 21, 99% on room air, CBC with WBC 6.1, hemoglobin 12.7, platelet 214 with lymphopenia, BMP with chloride 110, BUN/creatinine 35/0.92, glucose 119 otherwise not marked appearing, troponin high-sensitivity 5, chest x-ray with no acute cardiopulmonary findings with noted large hiatal hernia, EKG with sinus rhythm with left anterior fascicular block with no acute evidence of ischemia. In the ED patient ministered Zofran. [facility] Medical History (Updated 06/27/21 @ 14:[address] Jackie Lopes MD) Anxiety and depression Dementia HLD (hyperlipidemia) HTN (hypertension) Hypothyroidism Home Medications cholecalciferol (vitamin D3) [Vitamin D3] 1,000 unit PO DAILY 03/15/14 [History Last Taken 06/27/21] atorvastatin 20 mg PO QHS 12/17/20 [History Last Taken 06/25/21] citalopram 20 mg PO DAILY 06/27/21 [History Last Taken 06/27/21] levothyroxine 100 mcg PO DAILY 06/27/21 [History Last Taken 06/27/21] Allergy/AdvReac Type Severity Reaction Status Date / Time Penicillins [PCN] Allergy Other Verified 12/17/20 21:44 Sulfa (Sulfonamide Allergy Other Verified 08/22/19 14:19 Antibiotics) PINE Allergy Other Uncoded 08/22/19 14:19 Family History (Updated 06/27/21 @ 14:[address] Jackie Lopes MD) Father Pulmonary embolism secondary to PE in his 60s. other (Patient denies any marked maternal family hx including HD, DM, CA. Notes she did not see a doctor.) Surgical History (Updated 06/27/21 @ 14:[address] Jackie Lopes MD) H/O breast surgery History of appendectomy History of knee joint replacement Social History (Updated 06/27/21 @ 14:[address] Jackie Lopes MD) household members: other details: Her son lives with her and takes care of her. Smoking Status: Never smoker alcohol intake: never substance use type: does not use additional social history: Uses lift chair at home with stairs and walker for all walking. ROS ROS Narrative Admission Review of Systems: CONSTITUTIONAL: No weight loss, fever, chills, + weakness or fatigue. HEENT: Eyes: No visual loss, blurred vision, double vision or yellow sclerae. Ears, Nose, Throat: No hearing loss, sneezing, congestion, runny nose or sore throat. SKIN: No rash or itching, lesions, wounds. CARDIOVASCULAR: + Syncopal event. No chest pain, chest pressure or chest discomfort, palpitations, edema, orthopnea. RESPIRATORY: No shortness of breath, cough or sputum, wheezing, hemoptysis. GASTROINTESTINAL: No anorexia, nausea, vomiting or diarrhea, abdominal pain, melena, BRBPR. GENITOURINARY: No dysuria, frequency, urgency or retention. NEUROLOGICAL: + Syncopal event. No headache, dizziness, paralysis, ataxia, numbness or tingling in the extremities, focal weakness, change in bowel or bladder control, seizure. MUSCULOSKELETAL: No muscle, back pain, joint pain or stiffness. HEMATOLOGIC: No anemia, bleeding or bruising. LYMPHATICS: No enlarged nodes. No history of splenectomy. PSYCHIATRIC:+ history of depression or anxiety. ENDOCRINOLOGIC: No reports of sweating, cold or heat intolerance. No polyuria or polydipsia. ALLERGIES: No history of asthma, hives, eczema or rhinitis. Vital Signs Vital Signs Vital Signs: 06/27/21 09:30 06/27/21 10:10 06/27/21 14:09 Temperature 98.1 F 97 F L Temperature Source Temporal Temporal Pulse Rate 62 65 62 Respiratory Rate 18 22 H 21 H Respiratory Effort Normal Non-Labored Respiratory Pattern Normal Blood Pressure 131/74 H 124/72 H 142/90 H Blood Pressure Mean 93 89 107 Pulse Ox 100 98 99 Oxygen Delivery Method Room Air Room Air Room Air Weight Weight: 163 lb Body Mass Index (BMI) 24.0 Physical Exam Narrative Physical Examination: General: Awake, alert, oriented to self, place and recent events, extremely anxious, tearful intermittently during evaluation, following commands, seated upright in the ED. Skin: Normal color, normal turgor, no icterus, no cyanosis. HEENT: AT/NC, EOMI, PERRLA, mildly dry MM, no carotid bruits or JVD noted. Lungs: Diminished, greater bases, moderate effort, no rales, ronchi or wheezing. Heart: Regular rate and rhythm; no gallop, rub audible. Abdomen: Soft, NTTP, ND, mildly hyperactive BS, no HSM. Extremities: No cyanosis, clubbing, or edema. Neurological: Patient awake, alert, oriented as noted, cognitive function appears baseline intact per discussion with son, does have severe underlying anxiety and dementia with periods of labile mood, tearful; pupils equally reactive to light and accommodation, cranial nerves II-XII grossly normal, moving all 4 extremities, no focal deficits, strength mildly to moderately global decrease. Psychiatric: Affect appears anxious, intermittently crying, underlying history of depression or anxiety. Results Lab / Micro Data Result Diagrams: 06/27/21 10:00 06/27/21 10:00 Labs: Laboratory Results - last 24 hr 06/27/21 10:00: WBC 6.1, RBC 4.01 L, Hgb 12.7, Hct 39.5, MCV 98.5, MCH 31.7, MCHC 32.2, RDW Std Deviation 46.8 H, RDW Coeff of Jad 12.9, Plt Count 214, MPV 10.8, Immature Gran % (Auto) 0.500, Neut % (Auto) 80.6 H, Lymph % (Auto) 10.7 L, [place] % (Auto) 6.4, Eos % (Auto) 1.1, Baso % (Auto) 0.7, Absolute Neuts (auto) 5.0, Absolute Lymphs (auto) 0.66 L, Nucleated RBC % 0 11/01/21 10:00: Sodium 141, Potassium 4.1, Chloride 110 H, Carbon Dioxide 28.0, Anion Gap 3 L, BUN 35 H, Creatinine 0.92, Estim Creat Clear Calc 49.27, Est GFR (MDRD) Af Amer 75, Est GFR (MDRD) Non-Af 62, BUN/Creatinine Ratio 38.0 H, Glucose 119 H, Calcium 8.7, Troponin I High Sens 5 Rhythm Strip Rhythm Strip: Sinus Rhythm Rate: 65 Ectopy: None Radiology Impression Chest X-Ray 06/27/21 10:19 IMPRESSION: Large hiatal hernia. The lungs are clear. Electronically Signed: Samuel Britton MD at 10:40 EDT , Service support , Assessment & Plan Assessment/Plan (1) Syncope: QUALIFIERS: Syncope type: unspecified Qualified Code(s): R55 - Syncope and collapse PLAN: The patient is an 81 y/o F w/ PMHx: Dementia unclear type with severe anxiety with underlying Anxiety and Depression, Hx breast CA, Hypothyroidism, Hx HTN no currently on regimen, HLD who presents to the [facility] ED on 06/27/21 with history of being at the kitchen table with her son who lives w ith her and helps care for her with sudden onset without any prodrome syncopal event, slipping back into her chair with pulse and appropriate respirations, recovering after approximately 2 minutes with only 1 to 2 seconds per her son of confusion and then returning completely to her self with no reported lightheadedness, dizziness, dyspnea, chest pain. 1. Syncopal Event: Unclear etiology, EKG in ED w/ sinus rhythm w/ LAFB without acute evidence of ischemia, CXR w/ no acute cardiopulmonary findings, initial trop normal x1. Will admit to PCU, place on a monitored bed to assure no acute myocardial infarction with serial cardiac enzymes and EKGs. Will maintain on fall precautions, obtain admission orthostatic and AM orthostatic VS and increase hydration if appropriate. Will obtain ECHO. PT/OT consultation to ascertain stability and discharge needs. 2. Hypertension: Patient BP during ED evaluation mildly above goal although prior BPs have been appropriate, not on regimen, possibly associate with severe anxiety, will continue monitor and have as needed IV hydralazine in interim. 3. Hyperlipidemia: Continue home statin regimen. 4. Hypothyroidism: Continue home synthroid regimen, TSH and free T4 pending. 5. Anxiety and depression: We will continue patient home citalopram regimen. 6. Dementia, unclear type with severe anxiety associated: Patient with several bouts of crying in the ED, severe anxiety, complicates presentation, will maintain on fall precautions, therapies consulted as well as case management. Would prefer to hold off on any anxiolytic medications but if necessary may consider small doses. May benefit from very low-dose Seroquel nightly. 7. History of breast cancer: Remote, status post intervention considered in remission. 8. DVT prophylaxis: SCDs, Lovenox. 9. CODE status: Patient IDANIA is her son who is present and living will is currently in place and he does intend to get some of these items to be uploaded. Discussed CODE status at length including difference between FULL code, DNR-CCA and DNR-CC status. Following discussions with son about the differences in these status, requested DNR-CCA, no intubation. Advanced Care Planning Face to Face Time: 16 minutes. Charges/Coding Visit Charges OBSV E&M: 13488 Initial observation care L3 Procedures Hospitalists Procedures: 50430 Advncd Care Plan 30 Min
[2021-06-27 14:58] LABS: Magnesium 2.3 mg/dL (1.6-2.6)
[2021-06-27 16:31] LABS: Troponin-I HS 6 pg/mL (3.0-54.0)
[2021-06-27] MEDS: 0.9% Normal Saline 1,000 ML 100 ML IV (16:32)
[2021-06-27 19:50] LABS: Troponin-I HS 7 pg/mL (3.0-54.0)
--- NOTE | 2021-06-27 22:13 | PCS.PANDOC ---
PANDEMIC DOCUMENTATION INITIATED: Date: 04/11/2021 Time: 190
[2021-06-27] MEDS: Atorvastatin Calcium 20 MG Tablet PO (22:15)
[2021-06-27] MEDS: MELATONIN 3 MG TABLET PO (22:15)
[2021-06-28] MEDS: 0.9% Saline Lock 10 ML Syringe IV (00:36)
[2021-06-28 02:18] VITALS: BP 112/58; PULSE 57; RESP 18; TEMP 36.7; O2SAT 98
[2021-06-28] MEDS: Acetaminophen 325 MG Tablet 650 MG PO (02:23)
[2021-06-28 03:35] VITALS: PULSE 49
[2021-06-28 05:39] LABS: Absolute Lymphocyte Count 1.07 X10^3/uL (0.83-4.51); Absolute Neutrophil Count 3.9 X10^3/uL (2.0-7.7); Basophil# 0.02 X10^3/uL; Basophil% 0.4 % (0-1); Eosinophil# 0.17 X10^3/uL; Hematocrit 32.8 % (37-47); Hemoglobin 10.5 g/dL (12.0-15.0); Lymphocyte # 1.07 X10^3/ul (0.83-4.51); Lymphocyte % 18.7 % (19-41); Mean Corpuscular Hgb 31.3 pg (27.0-32.0); Mean Corpuscular Volume 97.6 fL (81-99); Mean Platelet Vol. 11.2 fl (6.2-12.0); Monocyte# 0.49 X10^3/uL; Monocyte% 8.6 % (0-10); NRBC Flagged by Analyzer 0 % (0-5); Neutrophil # 3.94 X10^3/uL (2.7-7.7); Neutrophil % 68.9 % (47-70); Platelet Count 186 K/mm3 (150-450); RBC Distribution Width CV 12.8 % (11.6-14.6); RBC Distribution Width SD 46.1 fl (35.1-43.9); Red Blood Count 3.36 M/mm3 (4.2-5.4); White Blood Count 5.7 K/mm3 (4.4-11.0)
--- NOTE | 2021-06-28 05:55 | EKG12_ITS ---
Test Reason : AM EKG Blood Pressure : / mmHG Vent. Rate : 052 BPM Atrial Rate : 052 BPM P-R Int : 178 ms QRS Dur : 090 ms QT Int : 464 ms P-R-T Axes : 058 -61 016 degrees QTc Int : 431 ms Sinus bradycardia Low voltage QRS Left anterior fascicular block Septal infarct , age undetermined Abnormal ECG Confirmed by AHMET HERNANDEZ, ALEJO ([id number]), editor at large SEMAJ BALBUENA ([id number]) on 06/29/2021 8:53:56 AM Referred By: SVEN Confirmed By:ALEJO LEO MD
[2021-06-28] MEDS: Levothyroxine 100 MCG Tablet PO (06:04)
[2021-06-28 06:26] LABS: ALB/GLOB Ratio 0.9 RATIO (0.9-2.4); AST(SGOT) 14 U/L (15-37); Alanine Aminotransfer ALT/SGPT 13 U/L (13-56); Albumin, Serum 2.6 g/dL (3.2-5.0); Alkaline Phosphatase 88 U/L (45-117); Anion Gap 5 (5-15); BUN 26 mg/dL (7-18); BUN/Creat Ratio 31.2 RATIO (10-20); Calcium,Total 8.2 mg/dL (8.5-10.1); Chloride 110 mmol/L (98-107); Creatinine, Serum 0.83 mg/dL (0.55-1.02); EST Glomerular Filtration Rate 70 mL/min (>60); Est Glom Filt Rate - Afr Amer 84 mL/min (>60); Estimated Creatinine Clearance 54.61 ml/min; Globulin 2.9 g/dL (2.2-4.2); Glucose 94 mg/dL (74-106); Protein, Total 5.5 g/dL (6.4-8.2); Sodium Level 141 mmol/L (136-145); T4 Free Direct 1.15 ng/dL (0.76-1.46)
[2021-06-28 07:17] VITALS: PULSE 51
[2021-06-28 08:09] VITALS: BP 116/55; PULSE 54; RESP 16; TEMP 36.3; O2SAT 97
[2021-06-28] MEDS: Enoxaparin 40 MG/0.4 ML Syringe SC (08:18)
[2021-06-28] MEDS: Citalopram 20 MG Tablet PO (08:18)
--- NOTE | 2021-06-28 11:54 | PCM.PN.HOSP ---
Documented by User: Jaspal BUI 06/28/21 14:53 Subjective Subjective Patient is an 81-year-old female comfortably resting in bed, alert and oriented to self. Patient unable to provide much details into her current condition as she is chronically confused due to her dementia. Patient denies any pain or ongoing complaints. Does not appear to be in acute distress. Objective Data Objective Data Vital Signs: Vital Signs Temp Pulse Resp BP Pulse Ox 97.3 F L 54 L 16 116/55 L 97 06/28/21 08:09 06/28/21 08:09 06/28/21 08:09 06/28/21 08:09 06/28/21 08:09 Oxygen Delivery Method Room Air Weight: 166 lb 0.129 oz Body Mass Index (BMI) 24.6 Intake & Output: Intake and Output for Last 24 Hours 06/26/21 06/27/21 06/28/21 23:59 23:59 23:59 Intake Total 246.67 / 246.67 753.33 / 753.33 Output Total Balance 246.67 / 246.67 752.33 / 752.33 Lab / Micro Data Result Diagrams: 06/28/21 05:02 06/28/21 05:02 Labs: Laboratory Results - last 24 hr 06/27/21 10:00: Magnesium 2.3 06/27/21 15:48: Troponin I High Sens 6 06/27/21 17:59: Troponin I High Sens 7 06/28/21 05:02: WBC 5.7, RBC 3.36 L, Hgb 10.5 L, Hct 32.8 L, MCV 97.6, MCH 31.3, MCHC 32.0, RDW Std Deviation 46.1 H, RDW Coeff of Jad 12.8, Plt Count 186, MPV 11.2, Immature Gran % (Auto) 0.400, Neut % (Auto) 68.9, Lymph % (Auto) 18.7 L, [place] % (Auto) 8.6, Eos % (Auto) 3.0, Baso % (Auto) 0.4, Absolute Neuts (auto) 3.9, Absolute Lymphs (auto) 1.07, Nucleated RBC % 0 06/28/21 05:02: Sodium 141, Potassium 4.0, Chloride 110 H, Carbon Dioxide 26.0, Anion Gap 5, BUN 26 H, Creatinine 0.83, Estim Creat Clear Calc 54.61, Est GFR (MDRD) Af Amer 84, Est GFR (MDRD) Non-Af 70, BUN/Creatinine Ratio 31.2 H, Glucose 94, Calcium 8.2 L, Total Bilirubin 0.50, AST 14 L, ALT 13, Alkaline Phosphatase 88, Total Protein 5.5 L, Albumin 2.6 L, Globulin 2.9, Albumin/Globulin Ratio 0.9, TSH 1.40, Free T4 1.15 Rhythm Strip Rhythm Strip: Sinus Rhythm Rate: 65 Ectopy: None Physical Exam Const alert, oriented x3 and no apparent distress HEENT head/scalp atraumatic and moist oral mucous membranes Head and Scalp: normocephalic Eyes PERRL, EOMs intact bilaterally and conjunctivae normal Neck no lymphadenopathy, supple and no JVD Resp normal respiratory effort, no retractions and no use of accessory muscles Cardio regular rhythm, no murmurs and no JVD Rate: bradycardia GI normal to inspection, nondistended, normoactive bowel sounds, soft to palpation and non-tender Extremity normal to inspection, full ROM and no clubbing, cyanosis or edema Peripheral Pulses: Yes pulses 2+ throughout Skin no rashes or lesions noted, no wounds, skin turgor normal and no jaundice Neuro CN's II-XII intact bilaterally Psych affect normal Assessment & Plan Assessment/Plan (1) Bradycardia: (2) Hypertension: QUALIFIERS: Hypertension type: essential hypertension Qualified Code(s): I10 - Essential (primary) hypertension (3) Syncope: QUALIFIERS: Syncope type: unspecified Qualified Code(s): R55 - Syncope and collapse PLAN: Day 1 Discharge planning: To be determined, PT/OT eval pending, case management following. 1) symptomatic bradycardia/syncope Patient has been bradycardic throughout admission. Denies any ongoing lightheadedness, shortness of breath or weakness. Echocardiogram was completed and no diagnostic data could be obtained. Cardiology consult ordered given syncope on admission and ongoing bradycardia. 2) hyperlipidemia Continue statin. 3) hypothyroidism TSH and T IV within normal limits. Continue home Synthroid regimen. 4) anxiety/depression Continue citalopram. 5) anxiety/depression Continue citalopram. 6) dementia Complicates assessment of patient's current condition. Patient very emotional and begins to cry easily. DVT prophylaxis: SCDs plus Lovenox Patient seen by Jaspal Neri PA-C, under the supervision of Dr. Mcgraw. Documented by User: Dr. Vikash Mcgraw MD 06/28/21 15:24 Objective Data Lab / Micro Data Result Diagrams: 06/28/21 05:02 06/28/21 05:02 Assessment & Plan Addt'l Comments This patient was seen in conjunction with Jaspal Neri PA-C. I have independently interviewed and examined the patient and reviewed pertinent historical, laboratory, and other data. Please refer to Jaspal Neri PA-C's note for details of this patient's presentation, findings, and recommendations. I have reviewed Jaspal Neri PA-C's note and concur with documented findings. In brief, patient is a an 81-year-old lady admitted following a syncopal episode admitted to a monitored bed where patient has been found to be profoundly bradycardic Physical Examination: GENERAL: cooperative HEENT: Atraumatic; EYES; Anicteric, Normal Conjunctiva NECK; supple, normal thyroid, RESPIRATORY: Diminished to auscultation CARDIOVASCULAR: Regular S1 S2, GI: soft, normoactive bowel sounds, : No Renal angle tenderness; EXTREMITIES: No edema, no clubbing, MUSCULOSKELETAL: no muscle waisting NEURO: Awake; no lateralizing signs. SKIN: No Rash PSYCH; Flat affect Assessment: 1. Symptomatic bradycardia 2. Dyslipidemia 3. Depression 4. Hypothyroidism 5. DVT prophylaxis Recommendations: 1. I have discussed the results of my overview and impressions with the patient 2. Options for management were reviewed Charges/Coding Visit Charges OBSV E&M: 03728 Subsequent observation care L3
[2021-06-28 14:00] VITALS: BP 131/73; PULSE 51; RESP 16; TEMP 36.4; O2SAT 97
--- NOTE | 2021-06-28 14:54 | CASEMGMT ---
ROMA SUTHERLAND in to completed VÁZQUEZ form with patient. RN KOKO explained V[employer]Z form to patient, patient voiced understanding. Patient signed V[employer]Z form and filed in chart. Patient provided with copy of signed V[employer] form. Patient had no further questions or concerns at this time.
--- NOTE | 2021-06-28 15:32 | CON.PCM.CA_ITS ---
Assessment & Plan Assessment/Plan (1) Bradycardia: PLAN: The patient appears to have underlying bradycardia. At the moment she does not appear to be on any medications that would exacerbate an underlying cardiac rate such as bradycardia. She does not appear to have obvious symptoms or hemodynamic compromise in corre lation to her cardiac rhythm/bradycardia monitored in the hospital. It is unclear whether it participated in her reported event of near syncope/syncope. The patient can be monitored as an outpatient for any concerning cardiac dysrhythmias or conduction related events such as a 30-day ambulatory event monitor. (2) Hyperlipidemia: QUALIFIERS: Hyperlipidemia type: unspecified Qualified Code(s): E 78.5 - Hyperlipidemia, unspecified PLAN: The patient should continue risk factor evaluation care as deemed appropriate. (3) Hypertension: QUALIFIERS: Hypertension type: essential hypertension Qualified Code(s): I10 - Essential (primary) hypertension PLAN: The patient can continue medical therapy for concerns of hypertension taking into consideration it is nonrate limiting Medi-Bret therapy. (4) Syncope: QUALIFIERS: Syncope type: unspecified Qualified Code(s): R55 - Syncope and collapse PLAN: It is unclear whether the patient had a near syncopal or syncopal event at this time. It is unclear as to whether any cardiovascular etiology contributed to such an event. Again if there is any concerns of any potential cardiac dysrhythmia or conduction system disease she can been monitored as an outpatient with a 30-day ambulatory event monitor. (5) Dementia: PLAN: The patient has dementia. She readily admits she does not recall the reason that she is in the hospital. Addt'l Comments This note was generated using a voice recognition system and there may be incorrect words, spelling or punctuation that were not noted when reviewing the office note prior to saving. HPI Consult Data Date of Consult: 06/28/21 HPI Narrative HPI Narrative: CARMELITA LEON, is a 81 year old white female who presents for evaluation of sinus bradycardia superimposed upon a history of underlying hyperlipidemia, hypertension, and dementia. The patient was brought to the hospital based upon concerns of a possible near syncopal/syncopal event according to the medical records. The patient does not recall the events that led her to the hospital. She is unclear as to whether she is truly been diagnosed with any cardiovascular condition in the past. At the present time she does not appear to complain of any ongoing chest discomfort or difficulty breathing. She has been up and ambulating with OT/PT using a walker. She did not appear to have any acute symptoms regarding that ambulation. She has undergone evaluation with cardiac enzymes which have been negative. An ECG was performed that demonstrated sinus bradycardia with a low voltage QRS and possible left anterior fascicular block as well as poor R wave progression with a septal [place] of indeterminate age cannot be excluded. She underwent evaluation with a transthoracic echocardiogram. The results are as noted below. She has been on cardiac telemetry. She is noted to be in sinus rhythm/sinus bradycardia. Thus far she does not appear to have had any obvious acute symptoms and/or hemodynamic compromise regarding such. [facility] Medical History (Updated 06/28/21 @ 15:[address] Nima Zimmerman MD) Anxiety and depression Dementia Dementia HLD (hyperlipidemia) HTN (hypertension) Hypothyroidism Kidney disease Kidney stones Osteoporosis Home Medications cholecalciferol (vitamin D3) [Vitamin D3] 1,000 unit PO DAILY 03/15/14 [History Last Taken 06/27/21] atorvastatin 20 mg PO QHS 12/17/20 [History Last Taken 06/25/21] citalopram 20 mg PO DAILY 06/27/21 [History Last Taken 06/27/21] levothyroxine 100 mcg PO DAILY 06/27/21 [History Last Taken 06/27/21] Allergy/AdvReac Type Severity Reaction Status Date / Time Penicillins [PCN] Allergy Other Verified 12/17/20 21:44 Sulfa (Sulfonamide Allergy Other Verified 08/22/19 14:19 Antibiotics) PINE Allergy Itching Uncoded 06/27/21 14:46 Family History (Updated 06/27/21 @ 14:[address] Jackie Lopes MD) Father Heart disease Kidney disease Mother Heart disease Family History other Surgical History (Updated 06/27/21 @ 14:58 by Beti Bell) H/O breast surgery H/O thyroidectomy History of appendectomy History of knee joint replacement Social History (Updated 06/27/21 @ 14:[address] Jackie Lopes MD) household members: other details: Her son lives with her and takes care of her. Smoking Status: Never smoker alcohol intake: never substance use type: does not use additional social history: Uses lift chair at home with stairs and walker for all walking. ROS Review of Systems ROS Unobtainable: due to mental condition Physical Exam Narrative The patient appears to be awake and in no acute distress at this time. Const no apparent distress Orientation / Consciousness: awake HEENT normocephalic, head/scalp atraumatic and hearing grossly normal bilaterally Eyes conjunctivae normal Neck full ROM, supple and no JVD Resp clear to auscultation bilaterally Cardio regular rhythm, S1 normal heart sound and S2 normal heart sound Rate: bradycardia GI normal to inspection, nondistended, normoactive bowel sounds Extremity no pedal edema Skin no rashes or lesions noted Psych Psych Narrative: Dementia Risk Stratification Risk Stratification Applicable: No Objective Data Vital Signs: Vital Signs Temp Pulse Resp BP Pulse Ox 97.5 F L 51 L 16 131/73 H 97 06/28/21 14:00 06/28/21 14:00 06/28/21 14:00 06/28/21 14:00 06/28/21 14:00 Oxygen Delivery Method Room Air Weight: 166 lb 0.129 oz Body Mass Index (BMI) 24.6 Intake & Output: Intake and Output for Last 24 Hours 06/26/21 06/27/21 06/28/21 23:59 23:59 23:59 Intake Total 246.67 / 246.67 993.33 / 993.33 Output Total Balance 246.67 / 246.67 992.33 / 992.33 Lab / Micro Data Result Diagrams: 06/28/21 05:02 06/28/21 05:02 Labs: Laboratory Results - last 24 hr 06/27/21 15:48: Troponin I High Sens 6 06/27/21 17:59: Troponin I High Sens 7 06/28/21 05:02: WBC 5.7, RBC 3.36 L, Hgb 10.5 L, Hct 32.8 L, MCV 97.6, MCH 31.3, MCHC 32.0, RDW Std Deviation 46.1 H, RDW Coeff of Jad 12.8, Plt Count 186, MPV 11.2, Immature Gran % (Auto) 0.400, Neut % (Auto) 68.9, Lymph % (Auto) 18.7 L, [place] % (Auto) 8.6, Eos % (Auto) 3.0, Baso % (Auto) 0.4, Absolute Neuts (auto) 3.9, Absolute Lymphs (auto) 1.07, Nucleated RBC % 0 06/28/21 05:02: Sodium 141, Potassium 4.0, Chloride 110 H, Carbon Dioxide 26.0, Anion Gap 5, BUN 26 H, Creatinine 0.83, Estim Creat Clear Calc 54.61, Est GFR (MDRD) Af Amer 84, Est GFR (MDRD) Non-Af 70, BUN/Creatinine Ratio 31.2 H, Glucose 94, Calcium 8.2 L, Total Bilirubin 0.50, AST 14 L, ALT 13, Alkaline Phosphatase 88, Total Protein 5.5 L, Albumin 2.6 L, Globulin 2.9, A lbumin/Globulin Ratio 0.9, TSH 1.40, Free T4 1.15 Rhythm Strip Rhythm Strip: Sinus Rhythm Rate: 65 Ectopy: None Cardiology Labs/Tests 06/28/21 05:02: WBC 5.7, RBC 3.36 L, Hgb 10.5 L, Hct 32.8 L, MCV 97.6, MCH 31.3, MCHC 32.0, Plt Count 186, MPV 11.2, Immature Gran % (Auto) 0.400, Neut % (Auto) 68.9, Lymph % (Auto) 18.7 L, [place] % (Auto) 8.6, Eos % (Auto) 3.0, Baso % (Auto) 0.4, Absolute Neuts (auto) 3.9, Nucleated RBC % 0 06/28/21 05:02: Sodium 141, Potassium 4.0, Chloride 110 H, Carbon Dioxide 26.0, Anion Gap 5, BUN 26 H, Creatinine 0.83, Est GFR (MDRD) Af Amer 84, Est GFR (MDRD) Non-Af 70, BUN/Creatinine Ratio 31.2 H, Glucose 94, Calcium 8.2 L, Total Bilirubin 0.50 Rhythm: Sinus rhythm/sinus bradycardia EKG: As noted above ECHO: Technically difficult study Limited views obtained The study was considered nondiagnostic due to poor acoustic windows Stress Test: Stress Test Report: Date: 07/14/2017 Procedure: Pharmacologic stress nuclear imaging study. Indications: Chest pain; shortness of breath Consent: Per the patient Procedure: The patient underwent pharmacologic (Regadenoson) evaluation with a peak heart rate of 98 bpm (69% predicted maximal heart rate) with a peak blood pressure 122/62 mmHg. The baseline ECG demonstrated normal sinus rhythm with poor R-wave progression. The peak pharmacologic ECG demonstrate no obvious ECG changes. There were no cardiac dysrhythmias pretest during infusion, or recovery. There was no report of chest discomfort during pharmacologic infusion or recovery. The examination was discontinued secondary to completion of protocol. Impression: 1. Pharmacologic (Regadenoson) evaluation 2. Peak pharmacologic ECG with no obvious ECG changes 3. Nuclear images pending Myocardial perfusion imaging study: Technique: The patient was injected with 11.8 mCi of technetium 99m Cardiolite and subsequently rest SPECT Cardiolite nuclear imaging was obtained in the horizontal long, vertical long, and short axis views. The patient underwent pharmacologic (Regadenoson) valuation with a peak heart rate of 98 bpm (69% predicted maximal heart rate) with a peak blood pressure 122/62 mmHg. The patient was injected with 35.2 mCi of technetium 99m Cardiolite and subsequently stress SPECT cardio light nuclear imaging was obtained in the horizontal long, vertical long, and short axis views. A gated Cardiolite study at peak stress was obtained. Interpretation: Rest and stress SPECT cardiac nuclear imaging status post realignment, nor malization, and attenuation correction demonstrates the appearance of relative uniform tracer uptake and myocardial perfusion appearing within normal limits. There are no myocardial perfusion deficits appreciated on the resting or stress polar map images. There is end systolic thickening and brightening. The gated Cardiolite study demonstrates myocardial thickening and inward wall motion. The reported LVEF is 75%. Impression: 1. Rest and stress SPECT Cardiolite nuclear imaging demonstrating relative uniform tracer uptake and myocardial perfusion appearing within normal limits. 2. The gated Cardiolite study reports an LVEF of 75%.
--- NOTE | 2021-06-28 15:37 | PCM.DC ---
Discharge Instructions Diet Discharge Diet: No restrictions Activity Discharge Activity: Return to Normal Activity Weight Bearing Status: Weight bearing as tolerated Dressing / Incision Call your doctor if you observe: Fever of 101 or Higher, Numbness or Tingling, Shortness of breath, Dizziness, Chest pain, Increased palpitations (irregular heartbeat) and Calf discomfort Follow Up Care Please Follow Up With: Primary care provider When: Within the next two weeks. Test Results: Test results from this visit will be discussed in further detail at your follow-up appointment, if applicable. Discharge Plan Admission Admit Date/Time: 06/27/21 14:22 Primary Reason for Your Visit: Syncope Attending Provider: Vikash Mcgraw Primary Care Provider: Booker Melendez Consulting Providers: Nima Zimmerman Discharge Orders/Prescriptions Prescriptions: Continued cholecalciferol (vitamin D3) [Vitamin D3] 1,000 UNIT capsule 1,000 unit PO DAILY RF: 0 atorvastatin 20 MG tablet 20 mg PO QHS RF: 0 citalopram 20 mg tablet 20 mg PO DAILY RF: 0 levothyroxine 100 mcg tablet 100 mcg PO DAILY RF: 0 Other Ambulatory Orders: Cardiac Holter Monitor, Set-Up (Routine) Location: None Selected Ordered By: Jaspal BUI Referrals / Follow Up: Booker Melendez MD [Primary Care Provider] - Within 2 Weeks Nima Zimmerman MD [STAFF PHYSICIAN] - Within 1 Month (Follow up with Dr. Zimmerman regarding your 30 day event monitor ) Disposition Disposition (needs filled in before D/C Order can be placed): Home, Self Care
--- NOTE | 2021-06-28 15:48 | PCM.DC.SUM ---
Documented by User: Jaspal BUI 06/28/21 15:51 Providers Date of Admission: 06/27/21 Primary Care Physician: Dr. Booker Melendez MD Consultations 06/28/21 12:00 Consult: Cardiology Routine Consulting Provider: Nima Zimmerman Reason for Consult: Bradycardia - eval for holter monitor on discharge EMERGENT Consult: No MD Notified: Yes Date Notified: 06/28/21 Time Notified: 12:37 Method of Notification: Text Reason For Visit: SYNCOPE Diagnosis Discharge Diagnosis (1) Bradycardia: Status: Acute Code(s): R00.1 - Bradycardia, unspecified (2) Hyperlipidemia: Status: Chronic Code(s): E78.5 - Hyperlipidemia, unspecified Qualifiers: Hyperlipidemia type: unspecified Qualified Code(s): E78.5 - Hyperlipidemia, unspecified (3) Hypertension: Status: Chronic Code(s): I10 - Essential (primary) hypertension Qualifiers: Hypertension type: essential hypertension Qualified Code(s): I10 - Essential (primary) hypertension (4) Syncope: Status: Acute Code(s): R55 - Syncope and collapse Qualifiers: Syncope type: unspecified Qualified Code(s): R55 - Syncope and collapse (5) Dementia: Status: Acute Code(s): F03.90 - Unspecified dementia without behavioral disturbance Medications at Discharge Home Medications cholecalciferol (vitamin D3) [Vitamin D3] 1,000 unit PO DAILY 03/15/14 atorvastatin 20 mg PO QHS 12/17/20 citalopram 20 mg PO DAILY 06/27/21 levothyroxine 100 mcg PO DAILY 06/27/21 Hospital Course Summary of Care Provided Minutes Spent on Discharge: 35 Hospital Course: Disposition: Patient to be discharged home. 1) symptomatic bradycardia/syncope Patient has been bradycardic throughout admission. Denies any ongoing lightheadedness, shortness of breath or weakness. Echocardiogram was completed and no diagnostic data could be obtained. Cardiology consulted and recommends 30-day event monitor with appropriate follow-up. Patient is also to follow-up with her primary care provider within the next 2 weeks. 2) hyperlipidemia Continue statin. 3) hypothyroidism TSH and T IV within normal limits. Continue home Synthroid regimen. 4) anxiety/depression Continue citalopram. 5) anxiety/depression Continue citalopram. 6) dementia Complicates assessment of patient's current condition. Patient very emotional and begins to cry easily. Patient seen by Jaspal Neri PA-C, under the supervision of Dr. Mcgraw. Physical Exam Narrative Patient is an 81-year-old female comfortably resting in bed, alert and oriented to self. Patient unable to provide much details into her current condition as she is chronically confused due to her dementia. Patient denies any pain or ongoing complaints. Does not appear to be in acute distress. Const alert, oriented x3 and no apparent distress HEENT normocephalic, head/scalp atraumatic, hearing grossly normal bilaterally and moist oral mucous membranes Eyes PERRL, EOMs intact bilaterally and conjunctivae normal Neck no lymphadenopathy, supple and no JVD Resp normal respiratory effort, no retractions, no use of accessory muscles and clear to auscultation bilaterally Cardio regular rhythm, no murmurs and no JVD Rate: bradycardia GI normal to inspection, nondistended, normoactive bowel sounds, soft to palpation and non-tender Extremity normal to inspection, full ROM and no clubbing, cyanosis or edema Skin no rashes or lesions noted, no wounds and skin turgor normal Neuro CN's II-XII intact bilaterally Psych affect normal Weight / BMI Weight Weight: 166 lb 0.129 oz Body Mass Index (BMI) 24.6 ABG / Lab / Microbiology Data Result Diagrams: 06/28/21 05:02 06/28/21 05:02 Laboratory: Laboratory Results - last 24 hr 06/27/21 15:48: Troponin I High Sens 6 06/27/21 17:59: Troponin I High Sens 7 06/28/21 05:02: WBC 5.7, RBC 3.36 L, Hgb 10.5 L, Hct 32.8 L, MCV 97.6, MCH 31.3, MCHC 32.0, RDW Std Deviation 46.1 H, RDW Coeff of Jad 12.8, Plt Count 186, MPV 11.2, Immature Gran % (Auto) 0.400, Neut % (Auto) 68.9, Lymph % (Auto) 18.7 L, [place] % (Auto) 8.6, Eos % (Auto) 3.0, Baso % (Auto) 0.4, Absolute Neuts (auto) 3.9, Absolute Lymphs (auto) 1.07, Nucleated RBC % 0 06/28/21 05:02: Sodium 141, Potassium 4.0, Chloride 110 H, Carbon Dioxide 26.0, Anion Gap 5, BUN 26 H, Creatinine 0.83, Estim Creat Clear Calc 54.61, Est GFR (MDRD) Af Amer 84, Est GFR (MDRD) Non-Af 70, BUN/Creatinine Ratio 31.2 H, Glucose 94, Calcium 8.2 L, Total Bilirubin 0.50, AST 14 L, ALT 13, Alkaline Phosphatase 88, Total Protein 5.5 L, Albumin 2.6 L, Globulin 2.9, Albumin/Globulin Ratio 0.9, TSH 1.40, Free T4 1.15 D/C Instructions Discharge Diet: No restrictions Weight Bearing Status: Weight bearing as tolerated Call your doctor if you observe: Fever of 101 or Higher, Numbness or Tingling, Shortness of breath, Dizziness, Chest pain, Increased palpitations (irregular heartbeat) and Calf discomfort Please Follow Up With: Primary care provider When: Within the next two weeks. Meaningful Use Info Meaningful Use Diagnoses (Choose all that apply): None applicable Discharge Plan Admission Admit Date/Time: 06/27/21 14:22 Primary Reason for Your Visit: Syncope Attending Provider: Vikash Mcgraw Primary Care Provider: Booker Melendez Consulting Providers: Nima Zimmerman Discharge Orders/Prescriptions Prescriptions: Continued cholecalciferol (vitamin D3) [Vitamin D3] 1,000 UNIT capsule 1,000 unit PO DAILY RF: 0 atorvastatin 20 MG tablet 20 mg PO QHS RF: 0 citalopram 20 mg tablet 20 mg PO DAILY RF: 0 levothyroxine 100 mcg tablet 100 mcg PO DAILY RF: 0 Other Ambulatory Orders: Cardiac Holter Monitor, Set-Up (Routine) Location: None Selected Ordered By: Jaspal BUI Referrals / Follow Up: Booker Melendez MD [Primary Care Provider] - Within 2 Weeks Nima Zimmerman MD [STAFF PHYSICIAN] - Within 1 Month (Follow up with Dr. Zimmerman regarding your 30 day event monitor ) Disposition Disposition (needs filled in before D/C Order can be placed): Home, Self Care Documented by User: Dr. Vikash Mcgraw MD 06/29/21 07:04 Providers Date of Admission: 06/27/21 Reason For Visit: SYNCOPE Medications at Discharge Home Medications cholecalciferol (vitamin D3) [Vitamin D3] 1,000 unit PO DAILY 03/15/14 atorvastatin 20 mg PO QHS 12/17/20 citalopram 20 mg PO DAILY 06/27/21 levothyroxine 100 mcg PO DAILY 06/27/21 Hospital Course Operations None Summary of Care Provided Hospital Course: This patient was seen in conjunction with Jaspal Neri PA-C. I have independently interviewed and examined the patient and reviewed pertinent historical, laboratory, and other data. Please refer to Jaspal Neri PA-C's note for details of this patient's presentation, findings, and recommendations. I have reviewed Jaspal Neri PA-C's note and concur with documented findings. In brief, patient is a an 81-year-old lady admitted following a syncopal episode admitted to a monitored bed where patient has been found to be profoundly bradycardic Assessment: 1. Symptomatic bradycardia 2. Dyslipidemia 3. Depression 4. Hypothyroidism 5. DVT prophylaxis Hospital course: As documented above ABG / Lab / Microbiology Data Result Diagrams: 06/28/21 05:02 06/28/21 05:02 Discharge Plan Admission Admit Date/Time: 06/27/21 14:22 Primary Reason for Your Visit: Syncope Attending Provider: Vikash Mcgraw Primary Care Provider: Booker Melendez Consulting Providers: Nima Zimmerman Discharge Orders/Prescriptions Prescriptions: Continued cholecalciferol (vitamin D3) [Vitamin D3] 1,000 UNIT capsule 1,000 unit PO DAILY RF: 0 atorvastatin 20 MG tablet 20 mg PO QHS RF: 0 citalopram 20 mg tablet 20 mg PO DAILY RF: 0 levothyroxine 100 mcg tablet 100 mcg PO DAILY RF: 0 Other Ambulatory Orders: Cardiac Holter Monitor, Set-Up (Routine) Location: None Selected Ordered By: Jaspal BUI Referrals / Follow Up: Booker Melendez MD [Primary Care Provider] - Within 2 Weeks Nima Zimmerman MD [STAFF PHYSICIAN] - Within 1 Month (Follow up with Dr. Zimmerman regarding your 30 day event monitor ) Disposition Disposition (needs filled in before D/C Order can be placed): Home, Self Care Charges/Coding Visit Charges OBSV E&M: 81756 Observation care discharge Hospital Course Consultations Consultations: Consultations 06/28/21 12:00 Consult: Cardiology Routine Consulting Provider: Nima Zimmerman Reason for Consult: Bradycardia - eval for holter monitor on discharge EMERGENT Consult: No MD Notified: Yes Date Notified: 06/28/21 Time Notified: 12:37 Method of Notification: Text Operations None
--- NOTE | 2021-06-28 16:01 | PHA.DC.MR ---
Pharmacy Service has performed discharge medication reconciliation for this patient. The patient's discharge medication list was reviewed for discrepancies and discrepancies were resolved. Home Medications cholecalciferol (vitamin D3) [Vitamin D3] 1,000 unit PO DAILY 03/15/14 atorvastatin 20 mg PO QHS 12/17/20 citalopram 20 mg PO DAILY 06/27/21 levothyroxine 100 mcg PO DAILY 06/27/21
[2021-06-28 16:04] LABS: Magnesium 2.1 mg/dL (1.6-2.6)
--- NOTE | 2021-06-28 16:19 | CASEMGMT ---
Pt now up for discharge. Call to son and he states pt is active with [facility] for SN, PT/OT and pt also has aides thru another company. Son states no concerns with pt coming home at discharge and states he does work but he works on their property so he checks in on her thruout the day. Son voices no further questions/concerns/needs. Call to [facility] to notify of pt discharge. Pt is OBS so does not need MERI order. SStmarianna BRANDON CM
== END 2021-06-28 15:46 | disposition home or self-care (01) ==
LOC: ED 14:03 → PCU 14:52
PROVIDERS: Admitting Provider Family Medicine; Emergency Provider Emergency Medicine; PCP Family Medicine; Visit Provider Internal Medicine
DX: R55 Syncope and collapse (principal); E78.5 Hyperlipidemia, unspecified; I10 Essential (primary) hypertension; E03.9 Hypothyroidism, unspecified; F32.A Depression, unspecified; F41.9 Anxiety disorder, unspecified; Z79.899 Other long term (current) drug therapy; F03.90 Unspecified dementia, unspecified severity, without behavioral disturbance, psychotic disturbance, mood disturbance, and anxiety; I44.4 Left anterior fascicular block; R00.1 Bradycardia, unspecified
CPT/HCPCS: 36415; 71045; 80048; 80053; 83735; 84439; 84443; 84484; 85025; 93005; 93308; 96361; 96372; 96374; 97162; 97166; 99218; 99251; 99285; J7030; A4216; G0378; G0463; J2405

== ENCOUNTER 2021-09-20 11:46 | Outpatient (CLI) | payer MEDICARE, SELFPAY ==
[2021-09-20 11:56] LABS: Bacteria 0 SEEN /hpf (None Seen); Mucous, Urine 0 SEEN /hpf (<or=2+); Red Blood Cells-Urine 0 SEEN /hpf (0-5)
[2021-09-20 12:41] LABS: Color, Urine Yellow (Yellow); Glucose, Dipstick Normal (Normal); Ketone-Dipstick Negative (Negative); Leukocyte Esterase-Dipstick 25 /ul (Negative); Nitrite-Dipstick Negative (Negative); Occult Blood-Urine Negative /ul (Negative); Protein-Dipstick Negative (Negative); Urine Bilirubin Dipstick Negative (Negative); Urine Clarity Sl. Cloudy (Clear); Urine Urobilinogen Normal (Normal)
[2021-09-20 12:48] LABS: Squamous Epithelial Cells - UA 0-5 SEEN /hpf (5-10); White Blood Cells 0-5 SEEN /hpf (0-5)
== END 2021-09-20 23:59 | disposition short-term general hospital (02) ==
PROVIDERS: PCP Family Medicine; Visit Provider Internal Medicine Cardiovascular Disease
DX: I49.5 Sick sinus syndrome (principal); I45.5 Other specified heart block; R55 Syncope and collapse
CPT/HCPCS: 81001

== ENCOUNTER 2021-09-26 13:57 | Observation (INO) | payer MEDICARE, SELFPAY ==
--- NOTE | 2021-09-09 14:30 | RAD_ITS ---
STUDY: X-RAY CHEST REASON FOR EXAM: Female, 81 years old. For PPM implant on 09/26/2021 TECHNIQUE: PA and lateral views of the chest. COMPARISON: Comparison is made with prior study 06/27/2021. FINDINGS: Surgical clips are seen overlying the right lateral hemithorax. The lungs are clear and expanded. There is no demonstrated pleural abnormality. There is mild cardiac enlargement. Normal mediastinum and bradly. Normal visualized pulmonary arteries. There is atherosclerotic tortuosity of the aortic arch and descending thoracic aorta. There are diffuse degenerative changes of the visualized thoracic spine. There is degenerative osteoarthritis of the bilateral shoulders. Large hiatal hernia. RAD/Chest PA and Lateral IMPRESSION: Large hiatal hernia. No acute abnormality is seen. Electronically Signed: Samuel Britton MD at 15:22 EST , Service support ,
[2021-09-09 15:29] LABS: Hematocrit 37.9 % (37-47); Hemoglobin 12.4 g/dL (12.0-15.0); Mean Corp Hgb Conc 32.7 g/dL (32-36); Mean Corpuscular Hgb 31.6 pg (27.0-32.0); Mean Corpuscular Volume 96.4 fL (81-99); Mean Platelet Vol. 10.7 fl (6.2-12.0); Platelet Count 212 K/mm3 (150-450); RBC Distribution Width CV 12.9 % (11.6-14.6); RBC Distribution Width SD 46.3 fl (35.1-43.9); Red Blood Count 3.93 M/mm3 (4.2-5.4); White Blood Count 6.8 K/mm3 (4.4-11.0)
[2021-09-09 15:40] LABS: International Normalized Ratio 1.1; Prothrombin Time (Protime)PT. 13.1 SECONDS (11.7-14.9)
[2021-09-09 16:01] LABS: Anion Gap 5 (5-15); BUN 26 mg/dL (7-18); BUN/Creat Ratio 24.5 RATIO (10-20); Chloride 109 mmol/L (98-107); Creatinine, Serum 1.06 mg/dL (0.55-1.02); EST Glomerular Filtration Rate 53 mL/min (>60); Est Glom Filt Rate - Afr Amer 64 mL/min (>60); Glucose 107 mg/dL (74-106); Potassium 4.1 mmol/L (3.5-5.1); Sodium Level 139 mmol/L (136-145)
[2021-09-23 08:27] VITALS: BMI 25.7
[2021-09-26] VITALS (13 sets, daily range): BP systolic 118–150; BP diastolic 72–98; PULSE 60–67; RESP 15–18; TEMP 36.5–37.1; O2SAT 95–100
--- NOTE | 2021-09-26 14:00 | CL.IE_ITS ---
Patient: CARMELITA LEON Study Date: 09/26/2021 Performing: Tray Cabrera MD : [id number] Age: 81 Gender: female PROCEDURES PERFORMED [id number])INITIAL PACER INSERT+DUAL LEADS INDICATIONS Sinoatrial node dysfunction/Sick sinus syndrome Syncope PROCEDURE DETAILS The patient was brought to the Catheterization Lab in the postabsorptive nonsedated state. [facility] was obtained prior to the procedure. Local anesthetic was given subcutaneously to the le ft upper chest area with Lidocaine 2%. Access was achieved and a guidewire was advanced into the left subclavian vein. PPM ventricular lead was inserted / positioned to right ventricular spetal wall. PP M ventricular lead testing performed. PPM ventricular lead testing performed. PPM atrial lead was ins erted / positioned to the right atrial appendage. The wire was then removed. PPM atrial lead testing performed. The Atrial lead sutured in place with 2-0 Silk. The Ventricular PM lead sutured in place w ith 2-0 Silk. PPM generator was attached to the lead(s) and inserted into the pocket. PPM generator w as then interrogated by the analytic programmer. Device pocket was irrigated with antibiotic Bacitracin. Subcu taneous closure was completed with 3-0 Vicryl. Skin closure was completed with 4-0 Vicryl. Steri-strips applied to Lt chest area. Instrument, sponge, and needle counts were noted to be normal. The patient tolerated the procedure well. Estimated Blood Loss: < 10 mls IMPLANTED / EX-PLANTED DEVICES IMPLANTED DEVICE(S): PPM Ventricular lead - It Lead: St Vern, Model # Tendril STS 2088TC-58 , Serial # [id number] PPM Atrial lead - It Lead: [employer] Vern, Model # Tendril STS 2088TC-52 , Serial # [id number] PPM Generator - It Lead: St Vern, Model # Assurity MRI [id number] , Serial # [id number] DEVICE PARAMETERS ATRIAL LEAD PARAMETERS: P wave- 3.9 (mV) Current- 1.4 (mA) threshold- 0.8 (V) impedence- 633 (OHMS) VENTRICULAR LEAD PARAMETERS: R wave- 7.6 (mV) Current- 0.8 (mA) threshold- 0.7 (V) impedence- 833 (OHMS) DEVICE PARAMETERS: Mode- DDDR Lower rate- 60 Upper rate- 120 CONCLUSIONS / RECOMMENDATIONS Device Conclusions: Successful implantation of a dual chamber pacemaker Device Recommendations: Follow up with Primary Care Physician PROCEDURE MEDICATIONS Versed 0.5 mg IV Fentanyl 25 mcg IV Versed 0.5 mg IV Fentanyl 25 mcg IV Versed 1 mg IV Fentanyl 25 mcg IV Fentanyl 25 mcg IV Oxygen: 2 L/min via nasal cannula Antibiotic given in appropriate timeframe. Clindamycin 900 mg IV 09/26/2021 12:57:25 Signed By Tray Cabrera MD On 09/26/2021 13:59:42 Tray Cabrera MD
[2021-09-26] MEDS: LORazepam 2 MG/ML Syringe 1 MG IV (16:58)
[2021-09-26] MEDS: Atorvastatin Calcium 20 MG Tablet PO (19:53)
[2021-09-27] VITALS (7 sets, daily range): BP systolic 129–142; BP diastolic 68–89; PULSE 60–63; RESP 15–16; TEMP 36.1–36.3; O2SAT 95–96
--- NOTE | 2021-09-27 05:55 | RAD_ITS ---
STUDY: X-RAY CHEST REASON FOR EXAM: Female, 81 years old. Post permanent ICD/Pacemaker -- inspiration/expiration. Arms Down. Wet read to MD TECHNIQUE: PA and lateral views of the chest. COMPARISON: September 09, 2021 chest x-ray FINDINGS: There is a left-sided pacemaker is visible, no visualized pneumothorax. There is elevation of the left hemidiaphragm and/or herniation of the stomach into the left chest. There is no demonstrated pleural abnormality. There is mild to moderate cardiac enlargement. Normal mediastinum and bradly. Normal visualized pulmonary arteries. There is atherosclerotic tortuosity of the aortic arch and descending thoracic aorta. There are diffuse degenerative changes of the visualized thoracic spine. There is degenerative osteoarthritis of the bilateral shoulders. There is a partially visualized cortical screw within the level of L2. There is no demonstrated abnormality of the visualized soft tissue structures of the upper abdomen. RAD/Chest 3 View IMPRESSION: Cardiomegaly. Large hiatal hernia. Left-sided first pacemaker leads overlying the heart. No visualized pneumothorax. Electronically Signed: Maude Samano MD at 6:18 EST Reading Location ID and State: [facility] / [place] Tel , Service support ,
[2021-09-27] MEDS: Levothyroxine 100 MCG Tablet PO (06:11)
[2021-09-27] MEDS: Citalopram 20 MG Tablet PO (08:26)
--- NOTE | 2021-09-27 09:01 | PCM.PN.CARD ---
Subjective Subjective Patient seen and evaluated. Appears to be doing well. Objective Data Vital Signs: Vital Signs Temp Pulse Resp BP Pulse Ox 97.3 F L 62 16 129/68 H 95 09/27/21 08:21 09/27/21 08:21 09/27/21 08:21 09/27/21 08:21 09/27/21 08:21 Oxygen Delivery Method Room Air Weight: 174 lb Body Mass Index (BMI) 25.7 Intake & Output: Intake and Output for Last 24 Hours 09/25/21 09/26/21 09/27/21 23:59 23:59 23:59 Intake Total 106 / 256 300 / 300 Output Total 150 / 750 600 / 600 Balance -44 / -494 -300 / -300 Lab / Micro Data Result Diagrams: 09/09/21 14:55 09/09/21 14:55 Cardiology Labs/Tests Rhythm: EKG: ECHO: Stress Test: Cardiac Cath: PCI: CT Surgery: Holter monitor: EPS: PPM: CXR: Chest CT Scan: Radiography Diagnostic Testing: Radiology Impression Chest X-Ray 09/27/21 05:55 IMPRESSION: Cardiomegaly. Large hiatal hernia. Left-sided first pacemaker leads overlying the heart. No visualized pneumothorax. Electronically Signed: Maude Samano MD at 6:18 EST Reading Location ID and State: [facility] / [place] Tel , Service support , Physical Exam Const alert, oriented x3 and no apparent distress General Appearance: cooperative HEENT hearing grossly normal bilaterally Head and Scalp: atraumatic Eyes EOMs intact bilaterally Neck General: normal visual inspection Chest inspection of chest normal and palpation of chest normal Resp normal respiratory effort Auscultation: clear to auscultation bilaterally Cardio regular rate, regular rhythm, S1 normal heart sound and S2 normal heart sound Jugular Venous Distention: JVD GI normal to inspection, nondistended, normoactive bowel sounds Extremity normal capillary refill and no pedal edema Peripheral Pulses: Yes pulses 2+ throughout and femoral pulses present Skin no rashes or lesions noted Neuro oriented x3 and CN's II-XII intact bilaterally Psych Appearance: grossly normal and appropriate Assessment & Plan Assessment/Plan (1) Presence of permanent cardiac pacemaker: PLAN: Status post permanent pacemaker implantation due to sinus pauses. Pacemaker was interrogated today and is noted to be functioning well chest x-ray demonstrates adequate positioning. Will discharge for outpatient follow-up.
--- NOTE | 2021-09-27 09:03 | PCM.DC ---
Discharge Instructions Diet Discharge Diet: No restrictions (as you feel able. No excessive stretching. No lifting your arm over your head (keep elbow below shoulder level) until seen for your pacemaker check. Do not lift your elbow away from your side until you are seen for your first visit. Keep the arm sling on if it helps remind you not to lift your arm.) Activity Additional Activity Instructions:: May shower or bathe on []. Do not scrub the incision or soak in the tub. Just wash with soap and let the water run over the incision. Gently pat dry with towel. Medications: Take your pain medication as directed. Refer to your discharge instruction sheet for a list of medications you are to take. Dressing / Incision Call your doctor if your incision/area has: Continuous Slow Oozing, Sudden Increased Bleeding, Increased Pain/ Swelling, Increased Redness, Foul Smelling Discharge and Swelling at the incision site Call your doctor if you observe: Fever of 101 or Higher, Shortness of breath, Dizziness, Fainting spells, Swelling in the ankles, Chest pain, Prolonged hiccupping and Increased palpitations (irregular heartbeat) Additional Dressing/Incision Instructions:: When dressing is removed, wash and dry incision. Keep covered with a light bandage if it is rubbing against your clothing. Do not cover the incision with an airtight bandage. Change the bandage daily. Do not remove steri strips. The strips will fall off on their own. Follow Up Care Please Follow Up With: Tray Cabrera MD When: October 10 at 1:30 PM Follow-up in pacer clinic Test Results: Test results from this visit will be discussed in further detail at your follow-up appointment, if applicable. Discharge Plan Admission Admit Date/Time: 09/26/21 13:57 Attending Provider: Tray Cabrera Primary Care Provider: Booker Melendez Discharge Orders/Prescriptions Prescriptions: Continued cholecalciferol (vitamin D3) [Vitamin D3] 1,000 UNIT capsule 1,000 unit PO DAILY RF: 0 atorvastatin 20 MG tablet 20 mg PO QHS RF: 0 citalopram 20 mg tablet 20 mg PO DAILY RF: 0 levothyroxine 100 mcg tablet 100 mcg PO DAILY RF: 0 Referrals / Follow Up: Booker Melendez MD [Primary Care Provider] - Disposition Disposition (needs filled in before D/C Order can be placed): Home, Self Care
--- NOTE | 2021-09-27 10:12 | NURSING ---
discharge instruction reviewed with lefty Herring. receptive to instructions and voices understanding.
== END 2021-09-27 09:02 | disposition home or self-care (01) ==
LOC: PCU 14:14
PROVIDERS: Internal Medicine Cardiovascular Disease; Admitting Provider Internal Medicine Cardiovascular Disease; PCP Family Medicine; Referring Provider Internal Medicine Cardiovascular Disease; Visit Provider Internal Medicine Cardiovascular Disease
DX: Z45.018 Encounter for adjustment and management of other part of cardiac pacemaker (principal); F03.90 Unspecified dementia, unspecified severity, without behavioral disturbance, psychotic disturbance, mood disturbance, and anxiety; I49.5 Sick sinus syndrome; R55 Syncope and collapse; E78.5 Hyperlipidemia, unspecified; I10 Essential (primary) hypertension; Z79.899 Other long term (current) drug therapy; E03.9 Hypothyroidism, unspecified; Z79.890 Hormone replacement therapy; F41.9 Anxiety disorder, unspecified; F32.A Depression, unspecified
CPT/HCPCS: 33208; 36415; 71046; 71047; 80048; 81001; 85027; 85610; 96374; 99152; 99153; 99218; J7040; J7050; C1894; G0378

== ENCOUNTER 2022-05-27 13:31 | Emergency (ER) | payer MEDICARE, SELFPAY ==
[2022-05-27 13:32] VITALS: BP 126/67; PULSE 64; RESP 18; TEMP 36.6; O2SAT 97; BMI 25.1
--- NOTE | 2022-05-27 14:10 | EDS_ITS ---
HPI History of Present Illness Chief Complaint: Lower Extremity Injury Narrative Narrative: 82-year-old female presenting with right knee pain. She is a poor informant. Her son has brought her here today. He states that she tells him that her knee does not hurt that bad. His sister who takes care of her before bed told him that she was complaining of her knee hurting badly. She has not had any injury that she knows of. They have not tried Tylenol, ibuprofen, ice. She is ambula tory with antalgic gait. Her son reports that she sits most of the day with her right knee crossed across her left leg. She only gets up to go to the bathroom. She is eating and drinking normally. She making normal urine and stool. She has not had any swelling, redness to the right knee. [facility] Medical History Anxiety and depression Bradycardia Dementia Dementia HLD (hyperlipidemia) HTN (hypertension) Hypertension Hypothyroidism Kidney disease Kidney stones Osteoporosis Presence of permanent cardiac pacemaker (~09/26/21) Sick sinus syndrome due to SA node dysfunction Sinus pause Syncope Home Medications cholecalciferol (vitamin D3) 25 mcg (1,000 unit) capsule (Vitamin D3) 1,000 unit PO DAILY supplement 03/15/14 [History Last Taken 06/27/21] atorvastatin 20 mg tablet 20 mg PO QHS cholesterol 12/17/20 [History Last Taken 06/25/21] levothyroxine 100 mcg tablet 100 mcg PO DAILY thyroid 06/27/21 [History Last Taken 06/27/21] buspirone 10 mg tablet 10 mg PO DAILY 12/05/21 [History Last Taken Unknown] citalopram 20 mg tablet 40 mg PO DAILY depression 12/05/21 [History Last Taken Unknown] acetaminophen 650 mg tablet,extended release (Tylenol 8 Hour) 650 mg PO Q8H PRN pain #20 tabs 05/27/22 [Rx Last Taken Unknown] Allergy/AdvReac Type Severity Reaction Status Date / Time Penicillins [PCN] Allergy Other Verified 05/27/22 13:31 Sulfa (Sulfonamide Allergy Other Verified 05/27/22 13:31 Antibiotics) PINE Allergy Itching Uncoded 05/27/22 13:31 Family History Father Heart disease Kidney disease Mother Heart disease Surgical History H/O breast surgery H/O thyroidectomy History of appendectomy History of knee joint replacement Social History household members: other details: Her son lives with her and takes care of her. Smoking Status: Never smoker alcohol intake: never substance use type: does not use additional social history: Uses lift chair at home with stairs and walker for all walking. ROS ROS ED Eyes Eyes: Denies change in vision or diplopia ENT ENT ED: Denies rhinorrhea or sore throat Cardiovascular Cardiovascular: Denies chest pain or palpitations Respiratory/Chest Respiratory/Chest: Denies cough or dyspnea Gastrointestinal Gastrointestinal: Denies abdominal pain, constipation or diarrhea Genitourinary Genitourinary ED: Denies dysuria or hematuria Musculoskeletal Musculoskeletal: Reports other Details: Right knee pain ; Denies arthralgias Integumentary Denies abscess or Abrasions Neurologic Neurologic: Denies headache(s) or paresthesias Psychiatric Psychiatric: Denies anxiety or depression EXAM Physical Exam Const Vital Signs: 05/27/22 13:32 Temperature 97.8 F Temperature Source Temporal Pulse Rate 64 Respiratory Rate 18 Blood Pressure 126/67 H Blood Pressure Mean 86 Pulse Ox 97 Oxygen Delivery Method Room Air Positive well nourished HEENT normocephalic and atraumatic Chest Wall inspection of chest normal and palpation of chest normal Resp normal respiratory effort Cardio regular rate and regular rhythm Extremity Extremity Narrative: Patient has full range of motion in flexion and extension of her right knee. There is no swelling, erythema, warmth. There is a midline incisional scar which is well healed over the patella. Neuro CN's II-XII intact bilaterally Sensorium / Orientation: alert Motor Exam: strength 5/5 throughout Psych mental status grossly normal Skin no wounds MDM MDM MDM Narrative Medical decision making narrative: Patient was given a gram of Tylenol and an x-ray of the right knee is obtained. Patient has full range of motion of the right knee. There is no evidence of trauma. There is no evidence of joint infection. 4 view x-rays of the right knee on my interpretation show no acute fracture or subluxation. Radiologist interprets this is agrees. Patient will be discharged home with a prescription for Tylenol. I counseled her son to have her moving more frequently instead of sitting with her leg crossed all day. They can try ice as well for the pain. Patient discharged in stable condition. Impression: 1. Right knee strain Lab Data Attestation: I reviewed the patient's lab results. Radiography Diagnostic Testing: Clinical Impression(s) from Imaging Studies Knee X-Ray 05/27/22 14:20 IMPRESSION: There are no acute findings. Electronically Signed: Gary Masters MD at 14:54 EDT Reading Location ID and State: [facility] / [place] , Service support , Discharge Plan Triage Chief Complaint: Lower Extremity Injury ED Provider: Luis Garcia Dx/Rx/DC Orders Instructions: ED Knee Sprain Prescriptions: New acetaminophen [Tylenol 8 Hour] 650 mg tablet extended release 650 mg PO Q8H PRN (Reason: pain) Qty: 20 0RF No Action buspirone 10 mg tablet 10 mg PO DAILY cholecalciferol (vitamin D3) [Vitamin D3] 1,000 UNIT capsule 1,000 unit PO DAILY Label Comments: suppliment atorvastatin 20 MG tablet 20 mg PO QHS levothyroxine 100 mcg tablet 100 mcg PO DAILY Label Comments: Take 1 tablet by mouth once daily. Take on empty stomach. For Thyroid citalopram 20 mg tablet 40 mg PO DAILY Label Comments: Take 1 tablet by mouth once daily. Primary Care Provider: Booker Melendez Referrals: Booker Melendez MD [Primary Care Provider] - Disposition Disposition: Home, Self Care
[2022-05-27] MEDS: Acetaminophen 500 MG Tablet 1000 MG PO (14:18)
--- NOTE | 2022-05-27 14:20 | RAD_ITS ---
STUDY: XR Knee Complete 4 Views or More 05/27/2022 2:48 PM REASON FOR EXAM: Female, 82 years old. pain Technologist Notes pt states that her right knee replacement has been giving her issues. states that she cannot move it correctly and has been painful. replacement of the knee was 6yrs ago. TECHNIQUE: XR Knee Complete 4 Views or More RIGHT COMPARISON: Prior comparison studies are not available for review at this time. FINDINGS: There is demineralization of the visualized distal femur. There is demineralization of the tibia and fibula. Normal proximal tibiofibular articulation. Total right knee arthroplasty. Normal medial femorotibial compartment. Normal lateral femorotibial compartment. Normal patellofemoral articulation. The soft tissue structures are unremarkable. RAD/Knee 4 or More Views IMPRESSION: There are no acute findings. Electronically Signed: Gary Masters MD at 14:54 EDT ,
== END 2022-05-27 15:46 | disposition home or self-care (01) ==
PROVIDERS: Emergency Provider Student in an Organized Health Care Education/Training Program; PCP Family Medicine; Visit Provider Student in an Organized Health Care Education/Training Program
DX: S83.91XA Sprain of unspecified site of right knee, initial encounter (principal); Z95.0 Presence of cardiac pacemaker; X58.XXXA Exposure to other specified factors, initial encounter
CPT/HCPCS: 73564; 99282

== ENCOUNTER 2022-08-14 13:54 | Observation (INO) | payer MEDICARE, SELFPAY ==
[2022-08-14] VITALS (11 sets, daily range): BP systolic 79–123; BP diastolic 58–88; PULSE 65–82; RESP 16–20; TEMP 35.8–37.4; O2SAT 97–100; BMI 26.9
--- NOTE | 2022-08-14 14:02 | ED.RN ---
UNABLE TO OBTAIN HR/PULSE OX AT THIS TIME
--- NOTE | 2022-08-14 14:25 | EKG12_ITS ---
Test Reason : LOW BP Blood Pressure : / mmHG Vent. Rate : 069 BPM Atrial Rate : 069 BPM P-R Int : 166 ms QRS Dur : 072 ms QT Int : 380 ms P-R-T Axes : 042 -68 022 degrees QTc Int : 407 ms Normal sinus rhythm Low voltage QRS Left anterior fascicular block Septal infarct , age undetermined Abnormal ECG Confirmed by AHMET HERNANDEZ, ALEJO ([id number]), newspaper managing editor SEMAJ BALBUENA ([id number]) on 08/16/2022 10:20:23 AM Referred By: Confirmed By:ALEJO LEO MD
--- NOTE | 2022-08-14 14:26 | EDS_ITS ---
HPI History of Present Illness Chief Complaint: Hypotension Narrative Narrative: History and physical is limited secondary to dementia. 82-year-old female presents with her family because of frequent falls and generalized weakness. They went to their primary care provider's office today and she was found to have low blood pressure in the 70s systolic. She does not take any medication for hypertension. They deny that she has had any fever or chills. No cough. No problems with urination. No recent diarrhea. She denies any chest pain or shortness of breath. No other symptoms. PFSH PFS Medical History Anxiety and depression Bradycardia Dementia Dementia HLD (hyperlipidemia) HTN (hypertension) Hypertension Hypothyroidism Kidney disease Kidney stones Osteoporosis Presence of permanent cardiac pacemaker (~09/26/21) Sick sinus syndrome due to SA node dysfunction Sinus pause Syncope Home Medications cholecalciferol (vitamin D3) 25 mcg (1,000 unit) capsule (Vitamin D3) 1,000 unit PO DAILY supplement 03/15/14 [History Last Taken 06/27/21] atorvastatin 20 mg tablet 20 mg PO QHS cholesterol 12/17/20 [History Last Taken 06/25/21] levothyroxine 100 mcg tablet 100 mcg PO DAILY thyroid 06/27/21 [History Last Taken 06/27/21] buspirone 10 mg tablet 10 mg PO DAILY 12/05/21 [History Last Taken Unknown] citalopram 20 mg tablet 40 mg PO DAILY depression 12/05/21 [History Last Taken Unknown] acetaminophen 650 mg tablet,extended release (Tylenol 8 Hour) 650 mg PO Q8H PRN pain #20 tabs 05/27/22 [Rx Last Taken Unknown] Allergy/AdvReac Type Severity Reaction Status Date / Time Penicillins [PCN] Allergy Other Verified 08/14/22 14:00 Sulfa (Sulfonamide Allergy Other Verified 08/14/22 14:00 Antibiotics) PINE Allergy Itching Uncoded 08/14/22 14:00 Family History Father Heart disease Kidney disease Mother Heart disease Surgical History H/O breast surgery H/O thyroidectomy History of appendectomy History of knee joint replacement Social History household members: other details: Her son lives with her and takes care of her. Smoking Status: Never smoker alcohol intake: never substance use type: does not use additional social history: Uses lift chair at home with stairs and walker for all walking. ROS ROS ED ROS Narrative Limited secondary to dementia. Constitutional: No fever, no chills. Generalized weakness. Reported low blood pressure. Frequent falls. HEENT: No sore throat. No neck pain. No loss of vision. No rhinorrhea. Cardiovascular: No chest pain. No palpitations. No pedal edema. Respiratory: No cough, no shortness of breath. Abdominal: No abdominal pain. No nausea. No vomiting. Genitourinary: No dysuria. No hematuria. Musculoskeletal: No myalgias. No arthralgias. Neurologic: No headaches. No dizziness. No lightheadedness. No new complaints, history of dementia. Skin: No rash. No change in color. Psychiatric: No depression. No anxiety. EXAM Physical Exam Narrative Exam Narrative: Afebrile. Vital signs noted. HEENT: Normocephalic. Atraumatic. PERRL, EOMI. Neck soft and supple. No point tenderness or step off. Cardiovascular: Regular rate and rhythm. No murmurs, rubs, or gallops appreciated. Respiratory: No tachypnea. Lungs clear to auscultation bilaterally. Gastrointestinal: Abdomen soft, nontender, with normoactive bowel sounds. No rebound or guarding. Neurological: Awake. Alert. Nonfocal, nonlateralizing. At baseline according to family. Consistent with dementia. Skin: No rash. Normal color. No pallor. Musculoskeletal: No pedal edema. Full range of motion extremities. Psychiatric: Mild anxiety with occasional hyperventilation on examination. Const Vital Signs: 08/14/22 13:55 08/14/22 14:16 08/14/22 14:17 Temperature 96.5 F L Temperature Source Temporal Pulse Rate 74 Respiratory Rate Blood Pressure 79/61 L 85/58 L Blood Pressure Mean 67 67 Pulse Ox Oxygen Delivery Method 08/14/22 14:25 08/14/22 15:07 08/14/22 16:20 Temperature Temperature Source Pulse Rate 70 82 Respiratory Rate 20 H 18 Blood Pressure 85/58 L 108/88 H Blood Pressure Mean 67 94 Pulse Ox 99 100 98 Oxygen Delivery Method Room Air Room Air 08/14/22 17:06 08/14/22 18:08 Temperature Temperature Source Pulse Rate 78 73 Respiratory Rate 16 18 Blood Pressure 108/88 H 122/74 H Blood Pressure Mean 94 90 Pulse Ox 98 98 Oxygen Delivery Method Room Air Room Air MDM MDM MDM Narrative Medical decision making narrative: Blood pressure was 79/61 in triage and currently 85/58. Do feel she may be dehydrated. Sepsis work-up was pursued given her hypotension. She was bolused normal saline intravenously. Her blood pressure is now 122/74. Lactic acid is normal. CBC shows normal white count of 6.3, hemoglobin 13.2 with hematocrit 42.4. Coags are negative. She has a BUN of 27 and a creatinine of 1.4 but normal electrolytes otherwise. LFTs show AST of 14 with an ALT of 17. Chest x- ray by my interpretation shows an opacity in the left lower lobe, but clinically she does not have a pneumonia without fever, white count, and she only has maybe an occasional cough. Urinalysis is mildly positive for infection. Culture is pending. She was treated with IV Levaquin as she has an allergy to penicillins and sulfa. In discussion with her son who is power of defense attorney, he mentioned that she has had frequent falls and increased confusion, trying to get up the stairs without a lift chair. He does not feel that she is safe at home and would like her placed. I had social work discussed this with him. I then discussed the patient with Dr. Mar for assignment to observation. She is in stable condition. Lab Data Attestation: I reviewed the patient's lab results. Labs: Laboratory Results - last 24 hr 08/14/22 08/14/22 08/14/22 14:46 14:46 14:46 WBC 6.3 RBC 4.31 Hgb 13.2 Hct 42.4 MCV 98.4 MCH 30.6 MCHC 31.1 L RDW Std Deviation 46.5 H RDW Coeff of Jad 12.8 Plt Count 205 MPV 10.9 Immature Gran % (Auto) 0.300 Neut % (Auto) 89.4 H Lymph % (Auto) 5.1 L [place] % (Auto) 4.4 Eos % (Auto) 0.5 Baso % (Auto) 0.3 Absolute Neuts (auto) 5.6 Absolute Lymphs (auto) 0.32 L Nucleated RBC % 0 Differential Comment SCANNED PT 13.8 INR 1.1 APTT 28.3 Sodium 137 Potassium 4.6 Chloride 107 Carbon Dioxide 25.0 Anion Gap 5 BUN 27 H Creatinine 1.40 H Estim Creat Clear Calc 31.82 Est GFR (MDRD) Af Amer 46 L Est GFR (MDRD) Non-Af 38 L BUN/Creatinine Ratio 19.3 Glucose 127 H Lactic Acid Calcium 8.6 Total Bilirubin 0.80 AST 14 L ALT 17 Alkaline Phosphatase 108 Total Protein 6.6 Albumin 3.6 Globulin 3.0 Albumin/Globulin Ratio 1.2 Urine Color Urine Clarity Urine pH Ur Specific [place] Urine Protein Urine Glucose (UA) Urine Ketones Urine Occult Blood Urine Nitrite Urine Bilirubin Urine Urobilinogen Ur Leukocyte Esterase Urine RBC Urine WBC Ur Squamous Epith Cells Urine Bacteria Hyaline Casts Urine Mucus 08/14/22 08/14/22 14:46 15:30 WBC RBC Hgb Hct MCV MCH MCHC RDW Std Deviation RDW Coeff of Jad Plt Count MPV Immature Gran % (Auto) Neut % (Auto) Lymph % (Auto) [place] % (Auto) Eos % (Auto) Baso % (Auto) Absolute Neuts (auto) Absolute Lymphs (auto) Nucleated RBC % Differential Comment PT INR APTT Sodium Potassium Chloride Carbon Dioxide Anion Gap BUN Creatinine Estim Creat Clear Calc Est GFR (MDRD) Af Amer Est GFR (MDRD) Non-Af BUN/Creatinine Ratio Glucose Lactic Acid 1.2 Calcium Total Bilirubin AST ALT Alkaline Phosphatase Total Protein Albumin Globulin Albumin/Globulin Ratio Urine Color Yellow Urine Clarity Sl. Cloudy Urine pH 5.0 Ur Specific [place] 1.015 Urine Protein 15 H Urine Glucose (UA) Normal Urine Ketones Negative Urine Occult Blood 10 H Urine Nitrite Positive H Urine Bilirubin 1 H Urine Urobilinogen 1 H Ur Leukocyte Esterase 100 H Urine RBC 0 SEEN Urine WBC 10-25 SEEN Ur Squamous Epith Cells 0 SEEN Urine Bacteria 2+ Hyaline Casts 0-5 SEEN Urine Mucus 0 SEEN Radiography Diagnostic Testing: Clinical Impression(s) from Imaging Studies Chest X-Ray 08/14/22 14:50 IMPRESSION: Opacity in the lower left lung and CT would be useful. Electronically Signed: Brooks Chapman MD at 15:18 EST , Discharge Plan Dx/Rx/DC Orders Clinical Impression: Dementia, UTI (urinary tract infection), Frequent falls Disposition Disposition: Acute Care Hospital [facility]
[2022-08-14] MEDS: 0.9% Normal Saline 1,000 ML 999 ML IV ×4 (14:50→19:55)
--- NOTE | 2022-08-14 14:50 | RAD_ITS ---
STUDY: X-RAY CHEST REASON FOR EXAM: Female, 82 years old. cad TECHNIQUE: Single AP portable view of the chest. COMPARISON: 09/27/2021 FINDINGS: Left subclavian pacemaker appear Opacity in the lower left lung and CT would be useful. There is no demonstrated pleural abnormality. There is moderate cardiac enlargement. Normal mediastinum and bradly. Normal visualized pulmonary arteries. Normal visualized aortic arch and descending thoracic aorta. Normal visualized thoracic spine. Normal visualized ribs, clavicles, and shoulders. There is no demonstrated abnormality of the visualized soft tissue structures of the upper abdomen. RAD/Chest 1 View (Portable) IMPRESSION: Opacity in the lower left lung and CT would be useful. Electronically Signed: Brooks Chapman MD at 15:18 EST ,
[2022-08-14 15:02] LABS: Absolute Lymphocyte Count 0.32 X10^3/uL (0.83-4.51); Absolute Neutrophil Count 5.6 X10^3/uL (2.0-7.7); Basophil# 0.02 X10^3/uL; Basophil% 0.3 % (0-1); Eosinophil# 0.03 X10^3/uL; Eosinophils% 0.5 % (0-5); Hematocrit 42.4 % (37-47); Hemoglobin 13.2 g/dL (12.0-15.0); Lymphocyte # 0.32 X10^3/ul (0.83-4.51); Lymphocyte % 5.1 % (19-41); Mean Corp Hgb Conc 31.1 g/dL (32-36); Mean Corpuscular Hgb 30.6 pg (27.0-32.0); Mean Corpuscular Volume 98.4 fL (81-99); Mean Platelet Vol. 10.9 fl (6.2-12.0); Monocyte# 0.28 X10^3/uL; Monocyte% 4.4 % (0-10); NRBC Flagged by Analyzer 0 % (0-5); Neutrophil # 5.64 X10^3/uL (2.7-7.7); Neutrophil % 89.4 % (47-70); POSITIVE DIFFERENTIAL YES; Platelet Count 205 K/mm3 (150-450); RBC Distribution Width CV 12.8 % (11.6-14.6); RBC Distribution Width SD 46.5 fl (35.1-43.9); Red Blood Count 4.31 M/mm3 (4.2-5.4); White Blood Count 6.3 K/mm3 (4.4-11.0)
[2022-08-14 15:08] LABS: Differential Indicated SCAN CRITERIA MET
[2022-08-14 15:29] LABS: ALB/GLOB Ratio 1.2 RATIO (0.9-2.4); AST(SGOT) 14 U/L (15-37); Alanine Aminotransfer ALT/SGPT 17 U/L (13-56); Albumin, Serum 3.6 g/dL (3.2-5.0); Alkaline Phosphatase 108 U/L (45-117); Anion Gap 5 (5-15); BUN 27 mg/dL (7-18); BUN/Creat Ratio 19.3 RATIO (10-20); Calcium,Total 8.6 mg/dL (8.5-10.1); Chloride 107 mmol/L (98-107); EST Glomerular Filtration Rate 38 mL/min (>60); Est Glom Filt Rate - Afr Amer 46 mL/min (>60); Estimated Creatinine Clearance 31.82 ml/min; Glucose 127 mg/dL (74-106); Potassium 4.6 mmol/L (3.5-5.1); Protein, Total 6.6 g/dL (6.4-8.2); Sodium Level 137 mmol/L (136-145)
[2022-08-14 15:33] LABS: Mucous, Urine 0 SEEN /hpf (<or=2+); Red Blood Cells-Urine 0 SEEN /hpf (0-5); Squamous Epithelial Cells - UA 0 SEEN /hpf (5-10)
[2022-08-14 15:38] LABS: Color, Urine Yellow (Yellow); Glucose, Dipstick Normal (Normal); Ketone-Dipstick Negative (Negative); Leukocyte Esterase-Dipstick 100 /ul (Negative); Nitrite-Dipstick Positive (Negative); Occult Blood-Urine 10 /ul (Negative); Protein-Dipstick 15 mg/dl (Negative); Specific Gravity, Urine 1.015 (1.002-1.030); Urine Clarity Sl. Cloudy (Clear); Urine Urobilinogen 1 mg/dl (Normal)
[2022-08-14 15:43] LABS: Differential Comment SCANNED
[2022-08-14 15:45] LABS: Lactic Acid 1.2 mmol/L (0.4-1.9)
[2022-08-14 15:51] LABS: International Normalized Ratio 1.1; Prothrombin Time (Protime)PT. 13.8 SECONDS (11.7-14.9)
[2022-08-14 15:52] LABS: Partial Thromboplast Time 28.3 Seconds (24.1-36.2)
[2022-08-14 15:54] LABS: Urine Bilirubin Dipstick 1 mg/dL (Negative)
[2022-08-14 15:56] LABS: Hyaline Cast 0-5 SEEN /lpf (0-5)
[2022-08-14 15:57] LABS: Bacteria 2+ /hpf (None Seen); White Blood Cells 10-25 SEEN /hpf (0-5)
[2022-08-14] MEDS: levoFLOXacin IV 750 MG/150 ML BAG 100 MG IV (16:35)
--- NOTE | 2022-08-14 18:48 | CM.ED ---
WILMER Note Referral Source: MD Referral Reason: Placement SW was advised by MD that patient had fallen at home. Fell today at 4am. Son reports he does not feel patient is safe at home. WILMER met with patient and her son, Nima. Nima and patient reports that in the past patient was at [facility] for 30 days and patient said that she was treated well there. Nima said that their first choice would be [facility] and [facility]. Nima stated that he had safety concerns if patient returned home. WILMER reviewed chart and patient needs precertification for SNF. WILMER updated MD that patient and son want SNF placement. Patient will need to be admitted. Plan: SNF [facility]
--- NOTE | 2022-08-14 19:00 | PCA ---
EMERGENCY DOCUMENTATION
--- NOTE | 2022-08-14 19:00 | NURSING ---
Emergency Documentation
[2022-08-14] MEDS: Ondansetron 4 MG/2 ML Vial IV (19:02)
--- NOTE | 2022-08-14 19:22 | HP.PCM.HOS_ITS ---
[facility] - General General Date of Service: 08/14/22 Chief Complaint: Falls HPI Narrative CARMELITA LEON, is a 82 F who presents with falls. Patient has been following over the past couple weeks. Patient has had 2 falls this past week most recent was today. Patient just very weak overall. History is obtained primarily to the patient's son at bedside. Patient lives with her son and she has walker downstairs and a walker upstairs and a lift chair to get her upstairs. She does not not use a walker upstairs. She went to her PCPs office and was noted to have a systolic blood pressure in the 80s and was sent to the emergency room for evaluation. Patient had a blood pressure of 79/61 upon arrival. She received 2 L of IV fluids and her blood pressure has since improved into the 120s systolic. Patient had a chest x-ray that showed an abnormality in left lower lobe and that was concerning for infiltrate and patient did receive levofloxacin. Patient has not been having fever chills or any shortness of breath. Patient is a poor historian due to underlying dementia as well as current anxiety. [facility] Medical History Anxiety and depression Bradycardia Dementia Dementia HLD (hyperlipidemia) HTN (hypertension) Hypertension Hypothyroidism Kidney disease Kidney stones Osteoporosis Presence of permanent cardiac pacemaker (~09/26/21) Sick sinus syndrome due to SA node dysfunction Sinus pause Syncope Home Medications cholecalciferol (vitamin D3) 25 mcg (1,000 unit) capsule (Vitamin D3) 1,000 unit PO DAILY supplement 03/15/14 [History Last Taken 06/27/21] atorvastatin 20 mg tablet 20 mg PO QHS cholesterol 12/17/20 [History Last Taken 06/25/21] levothyroxine 100 mcg tablet 100 mcg PO DAILY thyroid 06/27/21 [History Last Taken 06/27/21] buspirone 10 mg tablet 10 mg PO DAILY 12/05/21 [History Last Taken Unknown] citalopram 20 mg tablet 40 mg PO DAILY depression 12/05/21 [History Last Taken Unknown] acetaminophen 650 mg tablet,extended release (Tylenol 8 Hour) 650 mg PO Q8H PRN pain #20 tabs 05/27/22 [Rx Last Taken Unknown] Allergy/AdvReac Type Severity Reaction Status Date / Time Penicillins [PCN] Allergy Other Verified 08/14/22 14:00 Sulfa (Sulfonamide Allergy Other Verified 08/14/22 14:00 Antibiotics) PINE Allergy Itching Uncoded 08/14/22 14:00 Family History Father Heart disease Kidney disease Mother Heart disease Surgical History H/O breast surgery H/O thyroidectomy History of appendectomy History of knee joint replacement Social History household members: other details: Her son lives with her and takes care of her. Smoking Status: Never smoker alcohol intake: never substance use type: does not use additional social history: Uses lift chair at home with stairs and walker for all walking. ROS Review of Systems ROS Unobtainable: due to mental condition Vital Signs Vital Signs Vital Signs: 08/14/22 13:55 08/14/22 14:16 08/14/22 14:17 Temperature 35.8 C L Temperature Source Temporal Pulse Rate 74 Respiratory Rate Blood Pressure 79/61 L 85/58 L Blood Pressure Mean 67 67 Pulse Ox Oxygen Delivery Method 08/14/22 14:25 08/14/22 15:07 08/14/22 16:20 Temperature Temperature Source Pulse Rate 70 82 Respiratory Rate 20 H 18 Blood Pressure 85/58 L 108/88 H Blood Pressure Mean 67 94 Pulse Ox 99 100 98 Oxygen Delivery Method Room Air Room Air 08/14/22 17:06 08/14/22 18:08 08/14/22 19:03 Temperature 36.1 C L Temperature Source Temporal Pulse Rate 78 73 76 Respiratory Rate 16 18 20 H Blood Pressure 108/88 H 122/74 H 123/79 H Blood Pressure Mean 94 90 93 Pulse Ox 98 98 97 Oxygen Delivery Method Room Air Room Air Room Air Weight Weight: 82.554 kg Body Mass Index (BMI) 26.9 Physical Exam Const alert Constitutional Narrative: Anxious. Short shallow breaths. HEENT normocephalic and head/scalp atraumatic Resp normal respiratory effort, no retractions, no use of accessory muscles and clear to auscultation bilaterally Cardio regular rate, regular rhythm, S1 normal heart sound and S2 normal heart sound GI normal to inspection, nondistended, normoactive bowel sounds, soft to palpation and non-tender Extremity normal to inspection Neuro moves all extremities Psych Mood & Affect: anxious Results Lab / Micro Data Attestation: I reviewed the patient's lab results. Lab results narrative: Chest x-ray personally viewed and I see a large hiatal hernia. I do not appreciate any infiltrate. Result Diagrams: 08/14/22 14:46 08/14/22 14:46 Labs: Laboratory Results - last 24 hr 08/14/22 14:46: WBC 6.3, RBC 4.31, Hgb 13.2, Hct 42.4, MCV 98.4, MCH 30.6, MCHC 31.1 L, RDW Std Deviation 46.5 H, RDW Coeff of Jad 12.8, Plt Count 205, MPV 10.9, Immature Gran % (Auto) 0.300, Neut % (Auto) 89.4 H, Lymph % (Auto) 5.1 L, [place] % (Auto) 4.4, Eos % (Auto) 0.5, Baso % (Auto) 0.3, Absolute Neuts (auto) 5.6, Absolute Lymphs (auto) 0.32 L, Nucleated RBC % 0, Differential Comment SCANNED 08/14/22 14:46: PT 13.8, INR 1.1, APTT 28.3 08/14/22 14:46: Sodium 137, Potassium 4.6, Chloride 107, Carbon Dioxide 25.0, Anion Gap 5, BUN 27 H, Creatinine 1.40 H, Estim Creat Clear Calc 31.82, Est GFR (MDRD) Af Amer 46 L, Est GFR (MDRD) Non-Af 38 L, BUN/Creatinine Ratio 19.3, Glucose 127 H, Calcium 8.6, Total Bilirubin 0.80, AST 14 L, ALT 17, Alkaline Phosphatase 108, Total Protein 6.6, Albumin 3.6, Globulin 3.0, Albumin/Globulin Ratio 1.2 08/14/22 14:46: Lactic Acid 1.2 08/14/22 15:30: Urine Color Yellow, Urine Clarity Sl. Cloudy, Urine pH 5.0, Ur Specific [place] 1.015, Urine Protein 15 H, Urine Glucose (UA) Normal, Urine Ketones Negative, Urine Occult Blood 10 H, Urine Nitrite Positive H, Urine Bilirubin 1 H, Urine Urobilinogen 1 H, Ur Leukocyte Esterase 100 H, Urine RBC 0 SEEN, Urine WBC 10-25 SEEN, Ur Squamous Epith Cells 0 SEEN, Urine Bacteria 2+, Hyaline Casts 0-5 SEEN, Urine Mucus 0 SEEN Radiology Impression Chest X-Ray 08/14/22 14:50 IMPRESSION: Opacity in the lower left lung and CT would be useful. Electronically Signed: Brooks Chapman MD at 15:18 EST , Assessment & Plan Assessment/Plan (1) Debility: PLAN: PT OT evaluate and treat Case management to assist with disposition Son would like for the patient to be placed, preferably in [facility] if able. (2) Hypotension: PLAN: Transient and since resolved No additional work-up at this time (3) Abnormal chest x-ray: PLAN: This appears to be due to a hiatal hernia and not an infiltrate Patient did receive levofloxacin in the emergency room. We will hold off any additional antibiotics at this time as patient does not appear ill at this time PLAN: Plan Chronic conditions * Dementia * Anxiety: Continue with BuSpar * Hypothyroidism: Continue levothyroxine * Hyperlipidemia: Continue with statin VTE prophylaxis: Not indicated given observation status CODE STATUS: Asked the patient's son. He is unsure. Informed him that she will remain full code until he indicates otherwise. Disposition: Patient will be brought under observation status the patient is medically stable at this time. Made him aware that it could potentially lead to a higher co-pay after discharge. Though her status could change to admission depending on the course of events. Patient be evaluated for half-way facility and may require prior authorization beforehand. Charges/Coding Visit Charges OBSV E&M: 61449 Initial observation care L2
[2022-08-14] MEDS: Atorvastatin Calcium 20 MG Tablet PO (21:36)
[2022-08-15] VITALS (7 sets, daily range): BP systolic 104–151; BP diastolic 69–89; PULSE 60–79; RESP 16–18; TEMP 36.3–36.6; O2SAT 95–98
[2022-08-15] MEDS: Levothyroxine 100 MCG Tablet PO (06:31)
--- NOTE | 2022-08-15 08:14 | CT_ITS ---
STUDY: CT CHEST WITHOUT CONTRAST REASON FOR EXAM: Female, 82 years old. Heterogeneous opacity in the left lower lobe. RADIATION DOSAGE (If Supplied By Facility): CTDIvol = ( 14.02 ) mGy, DLP = ( 445.59 ) mGycm TECHNIQUE: Transaxial imaging was performed without the administration of intravenous contrast material. Individualized dose optimization techniques were used for this CT. COMPARISON: Comparison is made with prior chest radiograph dated 08/14/2022. FINDINGS: CHEST There is evidence of a large left Morganii type of diaphragmatic hernia. Bowel loops are seen in the anterior aspect of the left hemithorax. This is the radiographic abnormalities seen on the chest radiograph. Tiny bilateral pleural effusions. Mild degree of increased markings at the lung bases suggestive of a bibasilar atelectasis. There are calcifications of the coronary arteries. Left-sided dual-chamber pacemaker is seen. Cardiomegaly. Normal mediastinum. Normal hilar regions. Normal unenhanced pulmonary arteries. There is atherosclerotic calcification of the aortic arch with tortuosity and elongation of the aortic arch and descending thoracic aorta. There are multi-level degenerative changes of the thoracic spine. Status post cholecystectomy. Small cyst is seen in the upper pole of the left kidney. CT/Chest without Contrast IMPRESSION: Large leftward any type of anterior diaphragmatic hernia containing bowel. This corresponds to the abnormality on the chest radiograph. Small bilateral pleural effusions with bibasilar atelectasis. Electronically Signed: Samuel Britton MD at 10:11 EST ,
--- NOTE | 2022-08-15 09:56 | CASEMGMT ---
Discharge Spray Unit Feeder This justowriter operator sent a referral to Kaitlynn at [facility]. Kaitlynn is going to check out of network benefits. Nadia PEARL Kindergarten Classroom Teacher
[2022-08-15] MEDS: Ensure Plus High Protein 120 ML LIQUID PO ×3 (10:33→17:53)
[2022-08-15] MEDS: Cholecalciferol (VIT D3) 25 MCG TABLET (1,000 UNITS) PO (10:34)
[2022-08-15] MEDS: Citalopram 20 MG Tablet 40 MG PO (10:34)
[2022-08-15] MEDS: busPIRone 5 MG Tablet 10 MG PO (10:34)
[2022-08-15] MEDS: 0.9% Saline Lock 10 ML Syringe IV ×2 (10:40→17:05)
[2022-08-15 11:00] LABS: Anion Gap 4 (5-15); BUN 18 mg/dL (7-18); BUN/Creat Ratio 17.6 RATIO (10-20); Calcium,Total 8.4 mg/dL (8.5-10.1); Chloride 117 mmol/L (98-107); Creatinine, Serum 1.02 mg/dL (0.55-1.02); EST Glomerular Filtration Rate 55 mL/min (>60); Est Glom Filt Rate - Afr Amer 67 mL/min (>60); Estimated Creatinine Clearance 43.67 ml/min; Glucose 105 mg/dL (74-106); Potassium 4.3 mmol/L (3.5-5.1); Sodium Level 144 mmol/L (136-145)
--- NOTE | 2022-08-15 12:41 | CASEMGMT ---
Discharge Patient Coordinator Front Desk This keno writer/runner went to patient room introduced self and role here at [facility]. This keno writer/runner left a?list of?halfway facility providers including quality and resource use data and consistent with patient?s preferred geographic region, medical needs, and insurance network were provided from the [facility] Guide. Patient would like us to discuss choice with patient Son Nima. WILMER Bang notified. Nadia PEARL Social Work Professor
--- NOTE | 2022-08-15 14:25 | CASEMGMT ---
Discharge Sas Programmer Analyst Patient lefty Herring was in room. This movie writer introduced self and role here at [facility]. Son and patients choices would be 1. [facility] 2. [place]. This movie writer sent a referral to [facility] via [facility]. Nadia PEARL Car Shifter
--- NOTE | 2022-08-15 14:36 | CASEMGMT ---
Discharge Chief Mechanical Engineer YONI acepted patient. WILMER Bang notified. Nadia PEARL Linen Room Worker
--- NOTE | 2022-08-15 15:41 | CHAPLAIN ---
Type of Pastoral Visit _x__ Initial Visit ___ Follow-up Visit ___ On-call Visit ___ General Patient Visit ___ Spiritual Assessment ___ Family Conference ___ Bereavement ___ Rapid Response ___ Code Blue ___ Other (describe below) Pastoral Care Referral From _x__ Patient _x__ Family ___ Nurse ___ Physician ___ King Maker ___ Database Coordinator ___ Other (describe below) Sacrament/Intervention _x__ Active listening ___ Anointing ___ Religion ___ Bereavement ___ Communion ___ Lindy exploration ___ ___ Life review _x__ Prayer ___ Reconciliation ___ Sacrament of Sick _x__ Supportive presence ___ Wedding ___ Other (describe below) Pastoral Comments patient and son are in the room; when this skull splitter enters room the son excuses himself to make some phone calls; pt talks and answers questions but also comments are made that are not accurate ex. that the TV in the room is hers from home and that her son is her good ; pt is pleasant and welcomes a prayer; this skull splitter had a call to go to another room at this time; SALES REPRESENTATIVE [employer] entered room to check on patient
--- NOTE | 2022-08-15 16:23 | CASEMGMT ---
Discharge Blasting Gang Miner WILMERCC is start pre-cert today. Nadia PEARL Synthetic Department Supervisor
--- NOTE | 2022-08-15 16:33 | CASEMGMT ---
ROMA SUTHERLAND in to complete VÁZ[place]Z form with patient. ROMA SUTHERLAND explained V[place]Z form, patient slightly confused. Patient signed VÁZ[place]Z form. ROMA SUTHERLAND called patient's son and completed VÁZ[place]Z Form over the phone with patient. Son voiced understanding and gave telephone consent for VÁZQUEZ form. Patient provided with copy of signed VÁZQUEZ form. Oringinal filed in chart. Son had no further questions or concerns at this time.
--- NOTE | 2022-08-15 16:35 | PN.HOSP_ITS ---
Subjective Subjective Patient was admitted yesterday afternoon after being found hypotensive at his primary care physician's office with a blood pressure of 79/61. She received 2 L of IV fluids in the emergency department and her blood pressure has improved dramatically. Per her son she does not drink a lot at home but states her p.o. intake as far as food has been fine. They are agreeable to placement at discharge. No current issues or issues overnight. Objective Data Objective Data Vital Signs: Vital Signs Temp Pulse Resp BP Pulse Ox O2 Del Method 98 F 60 18 104/86 H 96 Room Air 08/15/22 16:29 08/15/22 16:29 08/15/22 16:29 08/15/22 16:29 08/15/22 16:29 08/15/22 16:29 Oxygen Delivery Method Room Air Weight: 82.554 kg Body Mass Index (BMI) 26.9 Intake & Output: Intake and Output for Last 24 Hours 08/13/22 08/14/22 08/15/22 23:59 23:59 23:59 Intake Total 4150.00 / 4150.00 420 / 420 Balance 4150.00 / 4150.00 420 / 420 Lab / Micro Data Result Diagrams: 08/14/22 14:46 08/15/22 09:50 Labs: Laboratory Results - last 24 hr 08/15/22 09:50: Sodium 144, Potassium 4.3, Chloride 117 H, Carbon Dioxide 23.0, Anion Gap 4 L, BUN 18, Creatinine 1.02, Estim Creat Clear Calc 43.67, Est GFR (MDRD) Af Amer 67, Est GFR (MDRD) Non-Af 55 L, BUN/Creatinine Ratio 17.6, Glucose 105, Calcium 8.4 L Micro: Microbiology 08/14/22 15:30 Urine Catheter - Catheter Urine Culture - Preliminary GNR lactose perinatal tech Radiography Diagnostic Testing: Radiology Impression Chest CT 08/15/22 08:14 IMPRESSION: Large leftward any type of anterior diaphragmatic hernia containing bowel. This corresponds to the abnormality on the chest radiograph. Small bilateral pleural effusions with bibasilar atelectasis. Electronically Signed: Samuel Britton MD at 10:11 EST , Physical Exam Const alert, oriented x3, no apparent distress and well nourished Constitutional Narrative: Elderly white female sitting up in bed, extremely hard of hearing, son at bedside, appears comfortable and nontoxic at this time HEENT head/scalp atraumatic and moist oral mucous membranes HEENT Narrative: Dentition is poor, Mallampati 2, no thrush, marked hearing loss Resp normal respiratory effort, no retractions, no use of accessory muscles and clear to auscultation bilaterally Auscultation: Negative for crackles, rhonchi or wheezes Cardio regular rate, regular rhythm, S1 normal heart sound, S2 normal heart sound, no murmurs, no rub, no gallops and no clicks GI normal to inspection, nondistended, normoactive bowel sounds, soft to palpation and non-tender; Negative for non-distended Extremity no clubbing, cyanosis or edema Neuro oriented x3, moves all extremities and no focal motor deficits Neuro Narrative: Generalized weakness noted on exam with proximal muscle groups being weaker than distal Speech: speech normal Psych affect normal Assessment & Plan Assessment/Plan (1) Hypotension: (2) Abnormal chest x-ray: (3) Debility: (4) Frequent falls: PLAN: Plan Debility/frequent falls -PT and OT following and recommending placement -Patient/family agreeable -Patient has been accepted at [facility] and pre-CERT is currently pending Hypotension -resolved -Echo orthostatic vitals tomorrow morning BRENDEN -Patient not on any diuretics at home -Had been having some intermittent diarrhea which has since resolved -Serum creatinine 1.4 on admission with a baseline of 0.8-1 -With IV hydration serum creatinine has improved and now is 1.02 -Stop IV fluids and monitor clinically for oral intake Abnormal chest x-ray -CT shows only large diaphragmatic hernia -No further follow-up needed Hypothyroidism -Continue home levothyroxine Hyperlipidemia -Continue home statin Anxiety -Continue home BuSpar Vitamin D deficiency -Continue home cholecalciferol Depression -Continue home citalopram Dementia -Placement pending DVT prophylaxis -SCDs while in bed -Would start prophylaxis if unable to be discharged in the next 24 hours -Mobilization CODE STATUS -Full code is verified on admission Charges/Coding Visit Charges Inpatient E&M: 25182 Subs Hosp L2
[2022-08-16] VITALS (9 sets, daily range): BP systolic 110–155; BP diastolic 61–89; PULSE 57–70; RESP 18–20; TEMP 36.3–37.3; O2SAT 94–95
[2022-08-16 05:38] LABS: Absolute Lymphocyte Count 0.79 X10^3/uL (0.83-4.51); Absolute Neutrophil Count 2.5 X10^3/uL (2.0-7.7); Basophil# 0.02 X10^3/uL; Basophil% 0.5 % (0-1); Eosinophil# 0.25 X10^3/uL; Eosinophils% 6.1 % (0-5); Hematocrit 36.5 % (37-47); Hemoglobin 11.4 g/dL (12.0-15.0); Lymphocyte # 0.79 X10^3/ul (0.83-4.51); Lymphocyte % 19.3 % (19-41); Mean Corp Hgb Conc 31.2 g/dL (32-36); Mean Corpuscular Hgb 31.1 pg (27.0-32.0); Mean Corpuscular Volume 99.5 fL (81-99); Mean Platelet Vol. 11.5 fl (6.2-12.0); Monocyte# 0.47 X10^3/uL; Monocyte% 11.5 % (0-10); NRBC Flagged by Analyzer 0 % (0-5); Neutrophil # 2.54 X10^3/uL (2.7-7.7); Neutrophil % 62.1 % (47-70); Platelet Count 150 K/mm3 (150-450); RBC Distribution Width SD 46.9 fl (35.1-43.9); Red Blood Count 3.67 M/mm3 (4.2-5.4); White Blood Count 4.1 K/mm3 (4.4-11.0)
[2022-08-16 06:02] LABS: Anion Gap 2 (5-15); BUN 21 mg/dL (7-18); BUN/Creat Ratio 23.8 RATIO (10-20); Calcium,Total 8.5 mg/dL (8.5-10.1); Chloride 114 mmol/L (98-107); Creatinine, Serum 0.88 mg/dL (0.55-1.02); EST Glomerular Filtration Rate 65 mL/min (>60); Est Glom Filt Rate - Afr Amer 78 mL/min (>60); Estimated Creatinine Clearance 50.62 ml/min; Glucose 99 mg/dL (74-106); Potassium 4.2 mmol/L (3.5-5.1); Sodium Level 143 mmol/L (136-145)
[2022-08-16] MEDS: Levothyroxine 100 MCG Tablet PO (06:20)
[2022-08-16] MEDS: Ensure Plus High Protein 120 ML LIQUID PO ×3 (08:32→15:34)
[2022-08-16] MEDS: busPIRone 5 MG Tablet 10 MG PO (08:34)
[2022-08-16] MEDS: Citalopram 20 MG Tablet 40 MG PO (08:34)
[2022-08-16] MEDS: Cholecalciferol (VIT D3) 25 MCG TABLET (1,000 UNITS) PO (08:34)
--- NOTE | 2022-08-16 08:41 | EKG12_ITS ---
Test Reason : Blood Pressure : / mmHG Vent. Rate : 060 BPM Atrial Rate : 060 BPM P-R Int : 178 ms QRS Dur : 084 ms QT Int : 402 ms P-R-T Axes : 010 -56 002 degrees QTc Int : 402 ms Atrial-paced rhythm Low voltage QRS Left anterior fascicular block Septal infarct , age undetermined Possible Lateral infarct , age undetermined Abnormal ECG When compared with ECG of 14-AUG-2022 14:32, MANUAL COMPARISON REQUIRED, DATA IS UNCONFIRMED Confirmed by AYAH HERNANDEZ, JOSUE ([id number]), fan mail editor SEMAJ BALBUENA ([id number]) on 08/16/2022 1:05:14 PM Referred By: LEXI Confirmed By:JOSUE POON MD
--- NOTE | 2022-08-16 08:42 | NURSING ---
Dr Mclean notified that pt is c/o chest pain and called for an EKG.
--- NOTE | 2022-08-16 10:24 | CASEMGMT ---
Discharge Chief Hydroelectric Station Operator YONI reached out. Pre-cert has been obtained. WILMER Bang notified. Nadia PEARL Skin Former
--- NOTE | 2022-08-16 14:37 | TREXTCAR_ITS ---
Diet Diet Order/Speech Therapy: 08/14/22 19:50 Diet: Regular - General Food consistency:: Regular Liquid Consistency:: Regular/Thin Routine Orders/Code Status Routine Lab Work: CBC and BMP Code Status: Full Code Therapies Physical Therapy: Eval and Treat Occupational Therapy: Eval and Treat Problem/Diagnosis (1) Hypotension: Status: Acute Code(s): I95.9 - Hypotension, unspecified (2) Abnormal chest x-ray: Status: Acute Code(s): R93.89 - Abnormal findings on diagnostic imaging of other specified body structures (3) Debility: Status: Acute Code(s): R53.81 - Other malaise (4) Frequent falls: Status: Acute Code(s): R29.6 - Repeated falls Allergies/Procedures Done in Hospital Allergies Penicillins [PCN] Allergy (Verified 08/14/22 14:00) Other Sulfa (Sulfonamide Antibiotics) Allergy (Verified 08/14/22 14:00) Other PINE Allergy (Uncoded 08/14/22 14:00) Itching [place] Procedures: None Type of Care/Length of Stay Estimated LOS: Convalescent Care Less Than 30 days Type of Care Needed: Skilled Rehab Potential: Good Prognosis: Good Additional Orders/Day of Discharge Day of Discharge: 08/16/22 Dietary and Speech Recommendations Dietitian Recommendations/Changes: continue regular diet, ensure plus high protein TID as ordered Discharge Plan Admission Admit Date/Time: 08/14/22 19:18 Attending Provider: William Mclean Primary Care Provider: Booker Melendez Consulting Providers: Oz Mar ; Tanya Greenwood Discharge Orders/Prescriptions Prescriptions: Continued buspirone 10 mg tablet 10 mg PO BID cholecalciferol (vitamin D3) [Vitamin D3] 1,000 UNIT capsule 1,000 unit PO DAILY Label Comments: suppliment atorvastatin 20 MG tablet 20 mg PO QHS levothyroxine 100 mcg tablet 100 mcg PO DAILY Label Comments: Take 1 tablet by mouth once daily. Take on empty stomach. For Thyroid citalopram 20 mg tablet 20 mg PO DAILY Label Comments: Take 1 tablet by mouth once daily. Referrals / Follow Up: Booker Melendez MD [Primary Care Provider] - Disposition Disposition (needs filled in before D/C Order can be placed): Intermediate Facility
--- NOTE | 2022-08-16 15:11 | CASEMGMT ---
Discharge Hospital Security Officer This continuity writer sent d/c orders to [facility] via [facility]. [facility] will transport patient with a medicinal plant picker time of 4:30pm. Nursing staff and patient son Nima made aware . Nadia PEARL Diagnostic Radiologic Technologist
--- NOTE | 2022-08-16 16:26 | NURSING ---
Kacie from [facility] called with an update p/u time of 1830/1900. P/u time was supposed to be 1630.
--- NOTE | 2022-08-16 18:35 | DS.PCM_ITS ---
Providers Date of Admission: 08/14/22 Primary Care Physician: Dr. Booker Melendez MD Reason For Visit: FALLS. DEBILITY. Diagnosis Discharge Diagnosis (1) Hypotension: Status: Acute Code(s): I95.9 - Hypotension, unspecified (2) Abnormal chest x-ray: Status: Acute Code(s): R93.89 - Abnormal findings on diagnostic imaging of other specified body structures (3) Debility: Status: Acute Code(s): R53.81 - Other malaise (4) Frequent falls: Status: Acute Code(s): R29.6 - Repeated falls Medications at Discharge Home Medications cholecalciferol (vitamin D3) 25 mcg (1,000 unit) capsule (Vitamin D3) 1,000 unit PO DAILY supplement 03/15/14 atorvastatin 20 mg tablet 20 mg PO QHS cholesterol 12/17/20 levothyroxine 100 mcg tablet 100 mcg PO DAILY thyroid 06/27/21 buspirone 10 mg tablet 10 mg PO BID DEPRESSION 12/05/21 citalopram 20 mg tablet 20 mg PO DAILY depression 12/05/21 Hospital Course Operations None Procedures None Summary of Care Provided Minutes Spent on Discharge: 39 Hospital Course: Per HPI: CARMELITA LEON, is a 82 F who presents with falls.? Patient has been following over the past couple weeks.? Patient has had 2 falls this past week most recent was today.? Patient just very weak overall.? History is obtained primarily to the patient's son at bedside.? Patient lives with her son and she has walker downstairs and a walker upstairs and a lift chair to get her upstairs.? She does not not use a walker upstairs.? She went to her PCPs office and was noted to have a systolic blood pressure in the 80s and was sent to the emergency room for evaluation.? Patient had a blood pressure of 79/61 upon arrival.? She received 2 L of IV fluids and her blood pressure has since improved into the 120s systolic.? Patient had a chest x-ray that showed an abnormality in left lower lobe and that was concerning for infiltrate and patient did receive levofloxacin.? Patient has not been having fever chills or any shortness of breath.? Patient is a poor historian due to underlying dementia as well as current anxiety. Hospital Course: 1. Debility and frequent falls with BRENDEN and hypotension?82-year-old female with a history of dementia presented to the hospital with multiple falls. She had had 2 falls during the past week prior to her admission and then another fall on the day of admission. She was also found to have a systolic blood pressure below 80 on arrival with an BRENDEN based on her baseline creatinine. She was started on some IV fluids as this was likely secondary to dehydration though she did receive a dose of levofloxacin in the ER secondary to an abnormal finding on her chest x-ray which was later confirmed to be a large diaphragmatic hernia on the left by CT scan. I discussed the results of this with her son and given her age and her dementia that she is unlikely a candidate to have this fixed however it is something that could be evaluated by a surgeon as an outpatient. Given her improvement in her renal function as well as improvement in her blood pressure and the fact that she was feeling better I discussed with her and her son about the possibility of being discharged today, she did get approval to go to the halfway and they were okay with her discharge today as they felt that she was back to her baseline other than being weak and needing therapy. 2. Hypothyroidism, hyperlipidemia, anxiety, depression, vitamin D deficiency are all chronic medical conditions which complicate her care. Her home medications were continued where appropriate Physical Exam Narrative General: Alert, Oriented x3, Cooperative, No apparent distress HEENT: Atraumatic, PERRLA, EOMI, Normocephalic Oral: Moist Mucosa Neck: Supple, No JVD Lungs: Diminished, Normal air movement, No rhonchi, No wheeze, No rales, gastric sounds are left chest Cardiovascular: Regular rate, Regular Rhythm, Normal S1, Normal S2, No murmurs Abdomen: Soft, Non Tender, Non-Distended, No Hepato-splenomegaly Extremities: No edema, Capillary Refill Less than 3 Seconds Skin: No rashes, No breakdown Musculoskeletal: No Tenderness to Palpation of Joints or Extremities Neurological: Cranial nerves II-XII grossly intact, Motor Exam 5/5 strength throughout, Sensory exam intact to light touch and pain Psych/Mental Status: Normal Affect, Appropriate Weight / BMI Weight Weight: 182 lb 0.006 oz Body Mass Index (BMI) 26.9 ABG / Lab / Microbiology Data Result Diagrams: 08/16/22 04:30 08/16/22 04:30 Laboratory: Laboratory Results - last 24 hr 08/16/22 04:30: WBC 4.1 L, RBC 3.67 L, Hgb 11.4 L, Hct 36.5 L, MCV 99.5 H, MCH 31.1, MCHC 31.2 L, RDW Std Deviation 46.9 H, RDW Coeff of Jad 13.0, Plt Count 150, MPV 11.5, Immature Gran % (Auto) 0.500, Neut % (Auto) 62.1, Lymph % (Auto) 19.3, [place] % (Auto) 11.5 H, Eos % (Auto) 6.1 H, Baso % (Auto) 0.5, Absolute Neuts (auto) 2.5, Absolute Lymphs (auto) 0.79 L, Nucleated RBC % 0 08/16/22 04:30: Sodium 143, Potassium 4.2, Chloride 114 H, Carbon Dioxide 27.0, Anion Gap 2 L, BUN 21 H, Creatinine 0.88, Estim Creat Clear Calc 50.62, Est GFR (MDRD) Af Amer 78, Est GFR (MDRD) Non-Af 65, BUN/Creatinine Ratio 23.8 H, Glucose 99, Calcium 8.5 Microbiology: Microbiology 08/16/22 14:45 Nasal Secretion SARS-CoV-2 Antigen (Rapid) - Final 08/14/22 15:30 Urine Catheter - Catheter Urine Culture - Final Escherichia coli Meaningful Use Info Meaningful Use Diagnoses (Choose all that apply): None applicable Discharge Plan Admission Admit Date/Time: 08/14/22 19:18 Attending Provider: William Mclean Primary Care Provider: Booker Melendez Consulting Providers: Oz Mar ; Tanya Greenwood Discharge Orders/Prescriptions Prescriptions: Continued buspirone 10 mg tablet 10 mg PO BID cholecalciferol (vitamin D3) [Vitamin D3] 1,000 UNIT capsule 1,000 unit PO DAILY Label Comments: suppliment atorvastatin 20 MG tablet 20 mg PO QHS levothyroxine 100 mcg tablet 100 mcg PO DAILY Label Comments: Take 1 tablet by mouth once daily. Take on empty stomach. For Thyroid citalopram 20 mg tablet 20 mg PO DAILY Label Comments: Take 1 tablet by mouth once daily. Referrals / Follow Up: Booker Melendez MD [Primary Care Provider] - Disposition Disposition (needs filled in before D/C Order can be placed): [facility] Facility Charges/Coding Visit Charges OBSV E&M: 17191 Observation care discharge
== END 2022-08-16 14:42 | disposition skilled nursing facility (03) ==
LOC: ED 19:24 → PCU 19:28
PROVIDERS: Internal Medicine; Emergency Provider Emergency Medicine; PCP Family Medicine; Visit Provider Family Medicine
DX: N17.9 Acute kidney failure, unspecified (principal); F03.90 Unspecified dementia, unspecified severity, without behavioral disturbance, psychotic disturbance, mood disturbance, and anxiety; R53.81 Other malaise; N39.0 Urinary tract infection, site not specified; I10 Essential (primary) hypertension; I95.9 Hypotension, unspecified; R53.1 Weakness; K44.9 Diaphragmatic hernia without obstruction or gangrene; F41.9 Anxiety disorder, unspecified; E55.9 Vitamin D deficiency, unspecified; E78.5 Hyperlipidemia, unspecified; E03.9 Hypothyroidism, unspecified; Z79.899 Other long term (current) drug therapy; Z95.0 Presence of cardiac pacemaker; R93.89 Abnormal findings on diagnostic imaging of other specified body structures; R29.6 Repeated falls; F32.A Depression, unspecified; Z79.890 Hormone replacement therapy
CPT/HCPCS: 36415; 71045; 71250; 80048; 80053; 81001; 83605; 85025; 85610; 85730; 87040; 87077; 87086; 87088; 87186; 87426; 93005; 96361; 96365; 96366; 96375; 97116; 97162; 97166; 97530; 97535; 97802; 99218; 99285; J7030; J7040; J7050; P9612; A4216; G0378; J2405

== ENCOUNTER → 2022-08-24 | Outpatient (REF) | payer MEDICARE, SELFPAY ==
[2022-08-24 09:30] LABS: Hematocrit 37.8 % (37-47); Hemoglobin 12.1 g/dL (12.0-15.0); Mean Corpuscular Hgb 31.7 pg (27.0-32.0); Mean Platelet Vol. 11.1 fl (6.2-12.0); Platelet Count 219 K/mm3 (150-450); RBC Distribution Width CV 12.9 % (11.6-14.6); RBC Distribution Width SD 47.1 fl (35.1-43.9); Red Blood Count 3.82 M/mm3 (4.2-5.4)
[2022-08-24 09:34] LABS: Anion Gap 4 (5-15); BUN 22 mg/dL (7-18); BUN/Creat Ratio 21.4 RATIO (10-20); Calcium,Total 8.6 mg/dL (8.5-10.1); Chloride 110 mmol/L (98-107); Creatinine, Serum 1.03 mg/dL (0.55-1.02); EST Glomerular Filtration Rate 54 mL/min (>60); Est Glom Filt Rate - Afr Amer 66 mL/min (>60); Glucose 83 mg/dL (74-106); Sodium Level 141 mmol/L (136-145)
== END ==
LOC: OLS.SW 05:20
PROVIDERS: PCP Family Medicine; Visit Provider Family Medicine
DX: R79.9 Abnormal finding of blood chemistry, unspecified (principal); Z13.228 Encounter for screening for other metabolic disorders; Z79.899 Other long term (current) drug therapy
CPT/HCPCS: 36415; 80048; 85027

== ENCOUNTER → 2023-01-01 | Outpatient (REF) | payer MEDICARE, SELFPAY ==
[2023-01-01 09:28] LABS: Absolute Lymphocyte Count 1.07 X10^3/uL (0.83-4.51); Absolute Neutrophil Count 4.8 X10^3/uL (2.0-7.7); Basophil# 0.03 X10^3/uL; Basophil% 0.4 % (0-1); Eosinophil# 0.47 X10^3/uL; Eosinophils% 6.8 % (0-5); Hematocrit 35.1 % (37-47); Hemoglobin 11.2 g/dL (12.0-15.0); Lymphocyte # 1.07 X10^3/ul (0.83-4.51); Lymphocyte % 15.4 % (19-41); Mean Corp Hgb Conc 31.9 g/dL (32-36); Mean Corpuscular Hgb 31.5 pg (27.0-32.0); Mean Corpuscular Volume 98.9 fL (81-99); Mean Platelet Vol. 11.3 fl (6.2-12.0); Monocyte# 0.55 X10^3/uL; Monocyte% 7.9 % (0-10); NRBC Flagged by Analyzer 0 % (0-5); Neutrophil # 4.79 X10^3/uL (2.7-7.7); Neutrophil % 69.2 % (47-70); Platelet Count 205 K/mm3 (150-450); RBC Distribution Width CV 13.8 % (11.6-14.6); RBC Distribution Width SD 50.4 fl (35.1-43.9); Red Blood Count 3.55 M/mm3 (4.2-5.4); White Blood Count 6.9 K/mm3 (4.4-11.0)
[2023-01-01 09:36] LABS: Anion Gap 7 (5-15); BUN 31 mg/dL (7-18); BUN/Creat Ratio 29.5 RATIO (10-20); Chloride 111 mmol/L (98-107); Creatinine, Serum 1.05 mg/dL (0.55-1.02); EST Glomerular Filtration Rate 53 mL/min (>60); Est Glom Filt Rate - Afr Amer 64 mL/min (>60); Glucose 77 mg/dL (74-106); Potassium 4.6 mmol/L (3.5-5.1); Sodium Level 143 mmol/L (136-145)
== END ==
LOC: OLS.SW 05:00
PROVIDERS: PCP Internal Medicine; Visit Provider Internal Medicine
DX: F03.90 Unspecified dementia, unspecified severity, without behavioral disturbance, psychotic disturbance, mood disturbance, and anxiety (principal); E03.9 Hypothyroidism, unspecified
CPT/HCPCS: 36415; 80048; 85025

== ENCOUNTER 2023-03-01 19:49 | Emergency (ER) | payer MEDICARE, MEDICAID, SELFPAY ==
[2023-03-01 19:50] VITALS: BP 131/101; PULSE 65; RESP 20; TEMP 36; O2SAT 95; BMI 27.0
--- NOTE | 2023-03-01 20:31 | EKG12_ITS ---
Test Reason : CHEST PAIN Blood Pressure : / mmHG Vent. Rate : 074 BPM Atrial Rate : 074 BPM P-R Int : 180 ms QRS Dur : 084 ms QT Int : 418 ms P-R-T Axes : 062 -56 040 degrees QTc Int : 463 ms Normal sinus rhythm Low voltage QRS Left anterior fascicular block Septal infarct , age undetermined Abnormal ECG Confirmed by SAMEER HERNANDEZ, KIESHA ([id number]), senior technical editor SEMAJ BALBUENA ([id number]) on 03/05/2023 1:06:56 PM Referred By: JEREMY Confirmed By:LONDON ESTRELLA MD
--- NOTE | 2023-03-01 20:34 | EX.ED.DYSGE1 ---
HPI <Dr. Dominguez Albert MD - Last Filed: 03/01/23 22:29> History of Present Illness Chief Complaint: General Illness Informant: patient, family and EMS Narrative Narrative: 83-year-old female in a dementia unit apparently was eating dinner tonight, and she suddenly complained of chest pain and passed out. Nursing who evaluated her, said that her blood pressure was low around 90, and her pulse was in the 60s. She has been in the 60s since EMS evaluated her and here, she has a pacemaker it is a [employer] device according to the card the son has with her. The patient does not provide good history because of her dementia. She does not recall any of this, but when asked about what happened she states I was eating dinner at [employer] and the preacher told me that someone was coming after me? She is asymptomatic right now except for feeling anxious. She denies having any chest discomfort or trouble breathing right now. SNF paperwork states she is a full code. PFS <Dr. Dominguez Albert MD - Last Filed: 03/01/23 22:29> [facility] Medical History Anxiety and depression Bradycardia Dementia Dementia HLD (hyperlipidemia) HTN (hypertension) Hypertension Hypothyroidism Kidney disease Kidney stones Osteoporosis Presence of permanent cardiac pacemaker (~09/26/21) Sick sinus syndrome due to SA node dysfunction Sinus pause Syncope Home Medications cholecalciferol (vitamin D3) 25 mcg (1,000 unit) capsule (Vitamin D3) 1,000 unit PO DAILY supplement 03/15/14 [History Last Taken 08/14/22] atorvastatin 20 mg tablet 20 mg PO QHS cholesterol 12/17/20 [History Last Taken 08/13/22] levothyroxine 100 mcg tablet 100 mcg PO DAILY thyroid 06/27/21 [History Last Taken 08/14/22] buspirone 10 mg tablet 10 mg PO BID DEPRESSION 12/05/21 [History Last Taken 08/14/22] citalopram 20 mg tablet 20 mg PO DAILY depression 12/05/21 [History Last Taken 08/14/22] Allergy/AdvReac Type Severity Reaction Status Date / Time Environmental Allergies: Allergy Itching Verified 12/11/22 12:51 Uncoded Penicillins [PCN] Allergy Other Verified 10/30/22 09:49 Sulfa (Sulfonamide Allergy Other Verified 10/30/22 09:49 Antibiotics) Family History Father Heart disease Kidney disease Mother Heart disease Surgical History H/O breast surgery H/O thyroidectomy History of appendectomy History of knee joint replacement History of lumbar fusion Social History household members: other details: Her son lives with her and takes care of her. Smoking Status: Never smoker alcohol intake: never substance use type: does not use additional social history: Uses lift chair at home with stairs and walker for all walking. ROS <Dr. Dominguez Albert MD - Last Filed: 03/01/23 22:29> ROS ED Review of Systems ROS Unobtainable: due to mental condition and due to mental status Constitutional Constitutional ED: Denies chills Eyes Eyes: Denies change in vision or diplopia Cardiovascular Cardiovascular: Reports as per HPI, chest pain and syncope Respiratory/Chest Respiratory/Chest: Denies dyspnea Gastrointestinal Gastrointestinal: Denies abdominal pain, nausea or vomiting Musculoskeletal Musculoskeletal: Denies back pain or neck pain EXAM <Dr. Dominguez Albert MD - Last Filed: 03/01/23 22:29> Physical Exam Const Vital Signs: 03/01/23 19:50 03/01/23 19:54 03/01/23 21:13 Temperature 96.8 F L Temperature Source Temporal Pulse Rate 65 61 Respiratory Rate 20 H 16 Respiratory Effort Normal Non-Labored Respiratory Pattern Normal Blood Pressure 131/101 H 129/84 H Blood Pressure Mean 111 99 Pulse Ox 95 98 Oxygen Delivery Method Room Air Room Air 03/01/23 21:52 03/02/23 01:05 Temperature Temperature Source Pulse Rate 61 62 Respiratory Rate 14 16 Respiratory Effort Respiratory Pattern Blood Pressure 125/99 H 129/77 H Blood Pressure Mean 107 Pulse Ox 97 97 Oxygen Delivery Method Room Air Positive well nourished and well developed General Appearance ED: well developed and NAD HEENT Reports moist mucous membranes normocephalic and atraumatic Eyes PERRL and EOMs intact bilaterally Neck full ROM and supple Chest Wall inspection of chest normal and palpation of chest normal Chest Narrative: Left upper chest pacemaker site benign appearing nontender Resp normal respiratory effort and clear to auscultation bilaterally Cardio regular rate, regular rhythm and no murmurs GI non-tender and non-distended Auscultation: normoactive bowel sounds Palpation: soft Back/Spine no CVA tenderness General Back: other FROM Extremity normal to inspection General Extremety ED: Negative for edema, pulses abnormal or tenderness General Extremity: Negative for edema or pulses abnormal Neuro CN's II-XII intact bilaterally and no sensory deficits noted Neuro Narrative: At baseline mental status, oriented to person and place Sensorium / Orientation: awake, alert and orientation impaired Motor Exam: strength 5/5 throughout Psych Mood & Affect: anxious Skin no rashes or lesions noted and no wounds <Dr. Luis Garcia DO - Last Filed: 03/02/23 01:51> Physical Exam Const Vital Signs: 03/01/23 19:50 03/01/23 19:54 03/01/23 21:13 Temperature 96.8 F L Temperature Source Temporal Pulse Rate 65 61 Respiratory Rate 20 H 16 Respiratory Effort Normal Non-Labored Respiratory Pattern Normal Blood Pressure 131/101 H 129/84 H Blood Pressure Mean 111 99 Pulse Ox 95 98 Oxygen Delivery Method Room Air Room Air 03/01/23 21:52 03/02/23 01:05 Temperature Temperature Source Pulse Rate 61 62 Respiratory Rate 14 16 Respiratory Effort Respiratory Pattern Blood Pressure 125/99 H 129/77 H Blood Pressure Mean 107 Pulse Ox 97 97 Oxygen Delivery Method Room Air [facility] <Dr. Dominguez Albert MD - Last Filed: 03/01/23 22:29> [facility] Narrative Medical decision making narrative: Given that the patient has what appears to be a functioning pacemaker, unlikely that she had symptomatic bradycardia, and in discussing nursing report that was obtained from the [facility] staff, this is consistent with that with her heart rate in the 60s. No acute CO is in the differential as is pulmonary embolus, also vasovagal episode. In order to rule out life-threatening pathology, work-up was obtained in addition to a D-dimer which did come back nonspecifically elevated, so she was sent for CT angiography of the chest. Initially, 1 view chest x-ray my interpretation shows significant cardiomegaly and what appears to be a hiatal hernia, reviewed the radiology interpretation. Labs are unremarkable otherwise, her initial troponin is well within normal limits in single digits, she has a creatinine of 1.29 and very mild hyperkalemia without any significant EKG changes so I do not think this needs to be treated emergently right now, just watch and repeat it. Blood pressure has maintained here, she has had no episodes of hypotension, has not required any IV fluid boluses (although some ordered for after CTA to flush contrast), and does not appear septic. CT angiography of the chest had to be postponed because her IV access was lost, and nursing had a difficult time regaining access. Therefore at this time that is still pending, as is repeat troponin and potassium level, which is hoped to be obtained after she received some IV fluids. Checked out to oncoming ED physician. Lab Data Attestation: I reviewed the patient's lab results. Labs: Laboratory Results - last 24 hr 03/01/23 03/01/23 20:40 23:29 WBC 6.2 RBC 3.54 L Hgb 11.2 L Hct 36.4 L MCV 102.8 H MCH 31.6 MCHC 30.8 L RDW Std Deviation 47.9 H RDW Coeff of Jad 12.5 Plt Count 163 MPV 11.1 Immature Gran % (Auto) 0.500 Neut % (Auto) 61.5 Lymph % (Auto) 20.6 [place] % (Auto) 11.6 H Eos % (Auto) 5.3 H Baso % (Auto) 0.5 Absolute Neuts (auto) 3.8 Absolute Lymphs (auto) 1.28 Nucleated RBC % 0 D-Dimer Quant (PE/DVT) 0.97 H* Sodium 140 Potassium 5.4 H 4.2 Chloride 109 H Carbon Dioxide 27.0 Anion Gap 4 L BUN 38 H Creatinine 1.29 H Estim Creat Clear Calc 33.93 Est GFR (MDRD) Af Amer 51 L Est GFR (MDRD) Non-Af 42 L BUN/Creatinine Ratio 29.5 H Glucose 96 Calcium 8.8 Troponin I High Sens 4 5 Radiography Diagnostic Testing: Clinical Impression(s) from Imaging Studies Chest X-Ray 03/01/23 20:35 IMPRESSION: 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 No definite new cardiopulmonary disease. Electronically Signed: Nima Rodriguez MD at 20:58 EDT , Chest CTA 03/01/23 21:47 IMPRESSION: Large herniation of small and large bowel into the precardiac mediastinum appears similar to 08/15/2022. No demonstrated pulmonary embolism or arterial dissection. Electronically Signed: Nima Rodriguez MD at 23:29 EDT , Rhythm Strip Rhythm Strip: paced Rate: 60 Ectopy: None EKG Initial EKG: Attestation: I personally reviewed and interpreted this EKG as follows: Interpretation: Sinus Rhythm (at 74), No Acute Injury Pattern and LAFB Prior EKG tracings: available for review Prior: Unchanged <Dr. Luis Garcia, DO - Last Filed: 03/02/23 01:51> [facility] Narrative Medical decision making narrative: Given that the patient has what appears to be a functioning pacemaker, unlikely that she had symptomatic bradycardia, and in discussing nursing report that was obtained from the [facility] staff, this is consistent with that with her heart rate in the 60s. No acute CO is in the differential as is pulmonary embolus, also vasovagal episode. In order to rule out life-threatening pathology, work-up was obtained in addition to a D-dimer which did come back nonspecifically elevated, so she was sent for CT angiography of the chest. Initially, 1 view chest x-ray my interpretation shows significant cardiomegaly and what appears to be a hiatal hernia, reviewed the radiology interpretation. Labs are unremarkable otherwise, her initial troponin is well within normal limits in single digits, she has a creatinine of 1.29 and very mild hyperkalemia without any significant EKG changes so I do not think this needs to be treated emergently right now, just watch and repeat it. Blood pressure has maintained here, she has had no episodes of hypotension, has not required any IV fluid boluses (although some ordered for after CTA to flush contrast), and does not appear septic. CT angiography of the chest had to be postponed because her IV access was lost, and nursing had a difficult time regaining access. Therefore at this time that is still pending, as is repeat troponin and potassium level, which is hoped to be obtained after she received some IV fluids. Checked out to oncoming ED physician. Dr. Garcia dictating. Patient signed out to me for monitoring until delta troponin and CTA returned. CTA showed no PE or dissection but did show a herniation of the bowel contents into the mediastinum without acute change. Delta troponin was 5 therefore there was no significant interval change. Discussed with family and the patient and they are safe to be discharged home at this point. Return precautions were given. Lab Data Labs: Laboratory Results - last 24 hr 03/01/23 03/01/23 20:40 23:29 WBC 6.2 RBC 3.54 L Hgb 11.2 L Hct 36.4 L MCV 102.8 H MCH 31.6 MCHC 30.8 L RDW Std Deviation 47.9 H RDW Coeff of Jad 12.5 Plt Count 163 MPV 11.1 Immature Gran % (Auto) 0.500 Neut % (Auto) 61.5 Lymph % (Auto) 20.6 [place] % (Auto) 11.6 H Eos % (Auto) 5.3 H Baso % (Auto) 0.5 Absolute Neuts (auto) 3.8 Absolute Lymphs (auto) 1.28 Nucleated RBC % 0 D-Dimer Quant (PE/DVT) 0.97 H* Sodium 140 Potassium 5.4 H 4.2 Chloride 109 H Carbon Dioxide 27.0 Anion Gap 4 L BUN 38 H Creatinine 1.29 H Estim Creat Clear Calc 33.93 Est GFR (MDRD) Af Amer 51 L Est GFR (MDRD) Non-Af 42 L BUN/Creatinine Ratio 29.5 H Glucose 96 Calcium 8.8 Troponin I High Sens 4 5 Radiography Diagnostic Testing: Clinical Impression(s) from Imaging Studies Chest X-Ray 03/01/23 20:35 IMPRESSION: 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 No definite new cardiopulmonary disease. Electronically Signed: Nima Rodriguez MD at 20:58 EDT , Chest CTA 03/01/23 21:47 IMPRESSION: Large herniation of small and large bowel into the precardiac mediastinum appears similar to 08/15/2022. No demonstrated pulmonary embolism or arterial dissection. Electronically Signed: Nima Rodriguez MD at 23:29 EDT , Discharge Plan Triage Chief Complaint: General Illness ED Provider: Dominguez Albert Dx/Rx/DC Orders Clinical Impression: Nonspecific chest pain, Syncope Instructions: Causes of Syncope Prescriptions: No Action buspirone 10 mg tablet 10 mg PO BID cholecalciferol (vitamin D3) [Vitamin D3] 1,000 UNIT capsule 1,000 unit PO DAILY Patient Comments: suppliment atorvastatin 20 MG tablet 20 mg PO QHS levothyroxine 100 mcg tablet 100 mcg PO DAILY Patient Comments: Take 1 tablet by mouth once daily. Take on empty stomach. For Thyroid citalopram 20 mg tablet 20 mg PO DAILY Patient Comments: Take 1 tablet by mouth once daily. Primary Care Provider: Ifrah Baker Referrals: Ifrah Baker MD [Primary Care Provider] - 3-5 Days Activity Restrictions/Additional Instructions: Testing in the ER ruled out an acute blood clot in the lung (pulmonary embolus) and myocardial infarction/heart attack.
--- NOTE | 2023-03-01 20:35 | RAD_ITS ---
INDICATION: Chest pain EXAMINATION/TECHNIQUE: X-RAY - XR Chest 1 View COMPARISON: 08/14/2022; 08/15/2022 CT FINDINGS: LINES/DEVICES: Dual lead pacemaker redemonstrated. LUNGS: No consolidation, edema or effusion. No pneumothorax. MEDIASTINUM AND CARDIOVASCULAR STRUCTURES: Cardiac silhouette not enlarged. Central airways and mediastinal contour are unremarkable. Large ventral diaphragmatic herniation indenting mediastinum redemonstrated. BONES AND SOFT TISSUES: Unremarkable. 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 No definite new cardiopulmonary disease. Electronically Signed: Nima Rodriguez MD at 20:58 EDT ,
[2023-03-01 20:46] LABS: Absolute Lymphocyte Count 1.28 X10^3/uL (0.83-4.51); Absolute Neutrophil Count 3.8 X10^3/uL (2.0-7.7); Basophil# 0.03 X10^3/uL; Basophil% 0.5 % (0-1); Eosinophil# 0.33 X10^3/uL; Eosinophils% 5.3 % (0-5); Hematocrit 36.4 % (37-47); Hemoglobin 11.2 g/dL (12.0-15.0); Lymphocyte # 1.28 X10^3/ul (0.83-4.51); Lymphocyte % 20.6 % (19-41); Mean Corp Hgb Conc 30.8 g/dL (32-36); Mean Corpuscular Hgb 31.6 pg (27.0-32.0); Mean Corpuscular Volume 102.8 fL (81-99); Mean Platelet Vol. 11.1 fl (6.2-12.0); Monocyte# 0.72 X10^3/uL; Monocyte% 11.6 % (0-10); NRBC Flagged by Analyzer 0 % (0-5); Neutrophil # 3.82 X10^3/uL (2.7-7.7); Neutrophil % 61.5 % (47-70); Platelet Count 163 K/mm3 (150-450); RBC Distribution Width CV 12.5 % (11.6-14.6); RBC Distribution Width SD 47.9 fl (35.1-43.9); Red Blood Count 3.54 M/mm3 (4.2-5.4); White Blood Count 6.2 K/mm3 (4.4-11.0)
[2023-03-01 21:07] LABS: Anion Gap 4 (5-15); BUN 38 mg/dL (7-18); BUN/Creat Ratio 29.5 RATIO (10-20); Calcium,Total 8.8 mg/dL (8.5-10.1); Chloride 109 mmol/L (98-107); Creatinine, Serum 1.29 mg/dL (0.55-1.02); D-Dimer Quantitative (DVT/PE) 0.97 FEU/ug/m (0.27-0.49); EST Glomerular Filtration Rate 42 mL/min (>60); Est Glom Filt Rate - Afr Amer 51 mL/min (>60); Estimated Creatinine Clearance 33.93 ml/min; Glucose 96 mg/dL (74-106); Potassium 5.4 mmol/L (3.5-5.1); Sodium Level 140 mmol/L (136-145); Troponin-I HS (w/2H Reflex) 4 pg/mL (3.0-54.0)
[2023-03-01 21:13] VITALS: BP 129/84; PULSE 61; RESP 16; O2SAT 98
--- NOTE | 2023-03-01 21:47 | CT_ITS ---
STUDY: CTA CHEST REASON FOR EXAM: Female, 83 years old. Chest pain, syncope, elevated d-dimer RADIATION DOSAGE (If Supplied By Facility): CTDIvol = ( 9.85 ) mGy, DLP = ( 450.68 ) mGycm TECHNIQUE: The examination was performed with the intravenous administration of IV 100mL Isovue-370. Post-processing of the angiographic images was performed, with multiplanar reformation and 3D reconstruction. Individualized dose optimization techniques were used for this CT. COMPARISON: 08/15/2022 FINDINGS: Normal enhancement of the main pulmonary artery and right and left pulmonary arteries. Normal enhancement of the bilateral peripheral pulmonary arteries. There is no demonstrated pulmonary embolism. Normal thoracic aorta and visualized great vessels. There is no demonstrated aortic dissection. Similar herniation of small and large bowel into the precardiac mediastinum with mass effect on the heart. Normal visualized trachea and bronchi. Mild bilateral lung base scarring. Normal pulmonary parenchyma. Normal pleura. Normal chest wall structures. Thoracic spine degenerative change and scoliosis. Prior cholecystectomy. CT/CTA Chest W/WO Contrast IMPRESSION: Large herniation of small and large bowel into the precardiac mediastinum appears similar to 08/15/2022. No demonstrated pulmonary embolism or arterial dissection. Electronically Signed: Nima Rodriguez MD at 23:29 EDT ,
[2023-03-01 21:52] VITALS: BP 125/99; PULSE 61; RESP 14; O2SAT 97
[2023-03-01 22:42] LABS: Reflex Troponin-HS? (from REC) Y
[2023-03-02 00:03] LABS: Potassium 4.2 mmol/L (3.5-5.1)
[2023-03-02 00:15] LABS: Troponin-I HS 5 pg/mL (3.0-54.0)
[2023-03-02 01:05] VITALS: BP 129/77; PULSE 62; RESP 16; O2SAT 97
--- NOTE | 2023-03-02 01:05 | ED.RN ---
REPORT CALLED TO PARI AT [facility].
== END 2023-03-02 02:17 | disposition home or self-care (01) ==
PROVIDERS: Emergency Provider Emergency Medicine; PCP Internal Medicine; Visit Provider Emergency Medicine
DX: R07.9 Chest pain, unspecified (principal); F03.90 Unspecified dementia, unspecified severity, without behavioral disturbance, psychotic disturbance, mood disturbance, and anxiety; R55 Syncope and collapse; Z95.0 Presence of cardiac pacemaker
CPT/HCPCS: 71045; 71275; 80048; 84132; 84484; 85025; 85379; 93005; 99285; J7040; Q9967; A4216

== ENCOUNTER 2023-05-29 20:03 | Emergency (ER) | payer MEDICARE, MEDICAID, SELFPAY ==
[2023-05-29 20:04] VITALS: BP 124/93; PULSE 60; RESP 14; TEMP 36.4; O2SAT 98; BMI 31.4
--- NOTE | 2023-05-29 20:31 | CT_ITS ---
INDICATION: trauma EXAMINATION: CT BRAIN - CT Head or Brain W/O Contrast Injection TECHNIQUE: Serial CT axial images were obtained of the head without intravenous contrast. A radiation dose optimization technique was used for this scan. COMPARISON: 12/18/2020 head CTA. Findings: Serial CT axial images of the head without contrast. BRAIN PARENCHYMA: Diffuse periventricular hypoattenuation likely chronic white matter ischemic changes. Moderate diffuse volume loss. No evidence of intraparenchymal hemorrhage or hyperattenuating extra-axial fluid collection. VASCULAR STRUCTURES: Atherosclerotic vascular calcifications. BONES: Paranasal sinuses are clear. SCALP/REMAINING SOFT TISSUES: Right posterior scalp inclusion cyst. ASPECTS Score for Acute Strokes, if applicable: 10 CT/Brain/Head without Contrast IMPRESSION: Age-related changes as above, without evidence of acute intracranial hemorrhage in this noncontrast head CT. Electronically Signed: Bryant Joe MD at 21:26 EDT ,
--- NOTE | 2023-05-29 20:37 | EX.ED.DYSGE1 ---
HPI History of Present Illness Chief Complaint: Lower Extremity Injury Informant: patient and SNF Narrative Narrative: Patient presents after a fall at [facility]. Patient states she fell when she was twisting but does not remember a lot of details. She states she hurts in the left knee mostly not the right knee. Care center staff said she was standing at the counter. She turned to walk away and as she turned she fell. She did hit her head but no loss of consciousness. She is not on blood thinners. She is evidently acting normally. She does have dementia. Patient states she knows she was told she hit her head but it does not hurt at all. She has a little bit of discomfort in the left upper arm and mostly the left knee area. [facility] Medical History Anxiety and depression Bradycardia Dementia Dementia HLD (hyperlipidemia) HTN (hypertension) Hypertension Hypothyroidism Kidney disease Kidney stones Osteoporosis Presence of permanent cardiac pacemaker (~09/26/21) Sick sinus syndrome due to SA node dysfunction Sinus pause Syncope Home Medications cholecalciferol (vitamin D3) 25 mcg (1,000 unit) capsule (Vitamin D3) 1,000 unit PO DAILY supplement 03/15/14 [History Last Taken 08/14/22] atorvastatin 20 mg tablet 20 mg PO QHS cholesterol 12/17/20 [History Last Taken 08/13/22] levothyroxine 100 mcg tablet 100 mcg PO DAILY thyroid 06/27/21 [History Last Taken 08/14/22] buspirone 10 mg tablet 10 mg PO BID DEPRESSION 12/05/21 [History Last Taken 08/14/22] citalopram 20 mg tablet 20 mg PO DAILY depression 12/05/21 [History Last Taken 08/14/22] Allergy/AdvReac Type Severity Reaction Status Date / Time Environmental Allergies: Allergy Itching Verified 05/29/23 20:04 Uncoded Penicillins [PCN] Allergy Other Verified 05/29/23 20:04 Sulfa (Sulfonamide Allergy Other Verified 05/29/23 20:04 Antibiotics) Family History Father Heart disease Kidney disease Mother Heart disease Surgical History H/O breast surgery H/O thyroidectomy History of appendectomy History of knee joint replacement History of lumbar fusion Social History household members: other details: Her son lives with her and takes care of her. Smoking Status: Never smoker alcohol intake: never substance use type: does not use additional social history: Uses lift chair at home with stairs and walker for all walking. ROS ROS ED Constitutional Constitutional ED: Denies chills or fever(s) Eyes Eyes: Denies change in vision ENT ENT ED: Denies rhinorrhea Cardiovascular Cardiovascular: Denies chest pain or palpitations Respiratory/Chest Respiratory/Chest: Denies cough or dyspnea Gastrointestinal Gastrointestinal: Denies nausea or vomiting Musculoskeletal Musculoskeletal: Reports arthralgias; Denies back pain or neck pain Integumentary Denies Abrasions or rash Neurologic Neurologic: Denies headache(s), paresthesias or weakness Hematologic/Lymphatic Hematologic/Lymphatic: Denies easy bleeding or easy bruising Allergic/Immunologic Allergic/Immunologic ED: Denies urticaria EXAM Physical Exam Narrative Exam Narrative: General: Patient is awake alert she is pleasant. She does look a little bit uncomfortable though. HEENT: I am not seeing obvious contusions or abrasions. There is no sore areas on her scalp. No abrasion on her face nose chin or back of her head. Neck is supple no tenderness no pain with range of motion Lungs are clear bilaterally. Saturations are normal at 98% on room air showing no hypoxia and there is no tenderness. Heart is regular. Rate of about 60-65. Abdomen is soft and nontender Spine shows no cervical thoracic or lumbar tenderness. No pain with AP or lateral compression of the pelvis. Extremities I am not seeing deformity. She moves both upper extremities well but she does have a little tenderness in the mid left humerus area. But no deformity. Lower extremities do show some tenderness mostly in the medial aspect of her left knee. It seems a little swollen there but there is no deformity. She can move it a bit but it hurts. There is no shortening or rotation. But when I move the leg or press in the left hip there is some mild discomfort up there. Neurologically she is awake alert. No numbness. She is reasonably oriented but evidently at baseline per staff knows her. Const Vital Signs: 05/29/23 20:04 Temperature 97.6 F L Temperature Source Temporal Pulse Rate 60 Respiratory Rate 14 Blood Pressure 124/93 H Blood Pressure Mean 103 Pulse Ox 98 Oxygen Delivery Method Room Air MDM MDM MDM Narrative Medical decision making narrative: NoMy independent interpretation of the patient's three-view x-ray of the left hip shows a normal left hip but abnormal right. This looks like it could be AVN or significant arthritic changes. This is a marked change from an image that I have but that images 13 years ago. There is been some questions on her alternating which side hurts. I will get a CT of the pelvis to better define this. My independent interpretation of the patient's 4 view x-ray of her left knee show a lot of arthritic changes but no acute fracture or dislocation. My independent interpretation of the two-view x-ray of the left humerus shows arthritic changes at the shoulder but no fracture. My independent interpretation of the patient's single view AP chest x-ray shows likely large hernia. No acute process. My independent interpretation the patient's CT of the pelvis shows chronic more arthritic changes no indication of acute fracture. My independent interpretation of the patient's CT of the head without contrast shows chronic changes but no acute mass or bleeding. Final reading by radiology and the above images are similar. CBC is normal. Electrolytes show no marked abnormalities. Working to walk the patient. Then I find out that the patient is not mobile. She was not supposed to be standing up today. She is supposed to be in a wheelchair. This is likely contributing to her fall. Her pain is there is no sign of acute fracture. Plan will be to get her back to [facility]. Lab Data Attestation: I reviewed the patient's lab results. Labs: Laboratory Results - last 24 hr 05/29/23 20:40 WBC 5.8 RBC 4.05 L Hgb 12.4 Hct 39.0 MCV 96.3 MCH 30.6 MCHC 31.8 L RDW Std Deviation 47.4 H RDW Coeff of Jad 13.2 Plt Count 205 MPV 10.6 Immature Gran % (Auto) 0.200 Neut % (Auto) 62.6 Lymph % (Auto) 21.7 Grand % (Auto) 10.6 H Eos % (Auto) 4.2 Baso % (Auto) 0.7 Absolute Neuts (auto) 3.6 Absolute Lymphs (auto) 1.25 Nucleated RBC % 0 Sodium 140 Potassium 4.2 Chloride 108 H Carbon Dioxide 29.0 Anion Gap 3 L BUN 33 H Creatinine 1.18 H Estim Creat Clear Calc 37.09 Est GFR (MDRD) Af Amer 56 L Est GFR (MDRD) Non-Af 46 L BUN/Creatinine Ratio 28.0 H Glucose 102 Calcium 8.6 Radiography Diagnostic Testing: Clinical Impression(s) from Imaging Studies Brain CT 05/29/23 20:31 IMPRESSION: Age-related changes as above, without evidence of acute intracranial hemorrhage in this noncontrast head CT. Electronically Signed: Bryant Joe MD at 21:26 EDT , Hip/Pelvis X-Ray 05/29/23 21:10 IMPRESSION: No acute osseous abnormality of the pelvis or left hip. Moderate amount of stool within the rectosigmoid raising concern for impaction. 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 Electronically Signed: Bryant Joe MD at 22:11 EDT , Humerus X-Ray 05/29/23 21:10 IMPRESSION: No acute osseous abnormality of the left humerus. Electronically Signed: Bryant Joe MD at 21:44 EDT , Knee X-Ray 05/29/23 21:10 IMPRESSION: Moderate to severe degenerative change without acute osseous abnormality of the left knee. Electronically Signed: Bryant Joe MD at 22:06 EDT , Pelvis CT 05/29/23 21:24 IMPRESSION: Moderate amount of stool within the rectosigmoid raising concern for impaction. 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 No acute osseous abnormality of the pelvis or bilateral hips. Electronically Signed: Bryant Joe MD at 22:19 EDT , Discharge Plan Triage Chief Complaint: Lower Extremity Injury ED Provider: Edwin Nath Dx/Rx/DC Orders Clinical Impression: Closed head injury, Contusion of arm, left, [facility], Contusion of hip, left, Contusion of left knee Instructions: Bruises (Contusions) Prescriptions: No Action buspirone 10 mg tablet 10 mg PO BID cholecalciferol (vitamin D3) [Vitamin D3] 1,000 UNIT capsule 1,000 unit PO DAILY Patient Comments: suppliment atorvastatin 20 MG tablet 20 mg PO QHS levothyroxine 100 mcg tablet 100 mcg PO DAILY Patient Comments: Take 1 tablet by mouth once daily. Take on empty stomach. For Thyroid citalopram 20 mg tablet 20 mg PO DAILY Patient Comments: Take 1 tablet by mouth once daily. Primary Care Provider: Ifrah Baker Referrals: Ifrah Baker MD [Primary Care Provider] - 3-5 Days if not improving Disposition Disposition: Long-Term Facility Discharge Location: [facility]
[2023-05-29 20:51] LABS: Absolute Lymphocyte Count 1.25 X10^3/uL (0.83-4.51); Absolute Neutrophil Count 3.6 X10^3/uL (2.0-7.7); Basophil# 0.04 X10^3/uL; Basophil% 0.7 % (0-1); Eosinophil# 0.24 X10^3/uL; Eosinophils% 4.2 % (0-5); Hemoglobin 12.4 g/dL (12.0-15.0); Lymphocyte # 1.25 X10^3/ul (0.83-4.51); Lymphocyte % 21.7 % (19-41); Mean Corp Hgb Conc 31.8 g/dL (32-36); Mean Corpuscular Hgb 30.6 pg (27.0-32.0); Mean Corpuscular Volume 96.3 fL (81-99); Mean Platelet Vol. 10.6 fl (6.2-12.0); Monocyte# 0.61 X10^3/uL; Monocyte% 10.6 % (0-10); NRBC Flagged by Analyzer 0 % (0-5); Neutrophil # 3.62 X10^3/uL (2.7-7.7); Neutrophil % 62.6 % (47-70); Platelet Count 205 K/mm3 (150-450); RBC Distribution Width CV 13.2 % (11.6-14.6); RBC Distribution Width SD 47.4 fl (35.1-43.9); Red Blood Count 4.05 M/mm3 (4.2-5.4); White Blood Count 5.8 K/mm3 (4.4-11.0)
[2023-05-29] MEDS: Morphine 2 MG/ML Syringe IV (20:51)
[2023-05-29] MEDS: Ondansetron 4 MG/2 ML Vial IV (20:51)
--- NOTE | 2023-05-29 21:10 | RAD_ITS ---
INDICATION: trauma EXAMINATION/TECHNIQUE: X-RAY - XR Chest 1 View COMPARISON: Chest CT and chest radiograph 03/01/2023. Findings: Single frontal view of the chest. LUNG PARENCHYMA: Again is noted very large bowel containing anterior bilateral diaphragmatic hernia which results in significant heterogeneous opacities of the bilateral lower lung bartholomew, although appears relatively stable from 3 months prior. PLEURA: No pleural effusion. No pneumothorax. HEART/GREAT VESSELS: Cardiomediastinal silhouette is obscured. Left chest multilead pacemaker device in place. BONES: Severe bilateral glenohumeral joint degenerative change. Multilevel thoracic degenerative disc disease. RAD/Chest 1 View (Portable) IMPRESSION: Again is noted very large bowel containing anterior bilateral diaphragmatic hernia which results in significant heterogeneous opacities of the bilateral lower lung bartholomew, although appears relatively stable from 3 months prior. No definite acute focal airspace disease, although this would be better evaluated with dedicated chest CT as indicated if persistent concern for chest pathology. Electronically Signed: Bryant Joe MD at 22:45 EDT ,
--- NOTE | 2023-05-29 21:10 | RAD_ITS ---
INDICATION: trauma EXAMINATION/TECHNIQUE: X-RAY - LEFT XR Hip Unilateral with Pelvis when performed; 2-3 Views COMPARISON: None. FINDINGS: 2 frontal views of the pelvis. 2 views of the left hip. BONES: Normal anatomic alignment without evidence of acute fracture or subluxation. 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 Lumbar orthopedic hardware, incompletely imaged, although no obvious hardware complication. SOFT TISSUES: Moderate amount of stool within the rectosigmoid raising concern for impaction. RAD/HIP, UNI W/ Pelvis 2-3 Views IMPRESSION: No acute osseous abnormality of the pelvis or left hip. Moderate amount of stool within the rectosigmoid raising concern for impaction. 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 Electronically Signed: Bryant Joe MD at 22:11 EDT ,
--- NOTE | 2023-05-29 21:10 | RAD_ITS ---
INDICATION: trauma EXAMINATION/TECHNIQUE: X-RAY - LEFT XR Humerus Min 2 Views COMPARISON: None. FINDINGS: 2 views of the left humerus. BONES: Normal anatomic alignment without evidence of fracture or subluxation. No concerning bony lesion or abnormal sclerosis to suggest lesion. JOINTS: Moderate glenohumeral joint degenerative change. SOFT TISSUES: Partially left multilead pacemaker device in place. RAD/Humerus min 2 Views IMPRESSION: No acute osseous abnormality of the left humerus. Electronically Signed: Bryant Joe MD at 21:44 EDT ,
--- NOTE | 2023-05-29 21:10 | RAD_ITS ---
INDICATION: trauma EXAMINATION/TECHNIQUE: X-RAY - LEFT XR Knee Complete 4 Views or More COMPARISON: None. FINDINGS: 4 views of the left knee. BONES: Normal anatomic alignment without evidence of fracture or subluxation. No concerning bony lesion or abnormal sclerosis to suggest lesion. JOINTS: Moderate to severe tricompartment degenerative change. SOFT TISSUES: Unremarkable. RAD/Knee 4 or More Views IMPRESSION: Moderate to severe degenerative change without acute osseous abnormality of the left knee. Electronically Signed: Bryant Joe MD at 22:06 EDT ,
[2023-05-29 21:13] LABS: Anion Gap 3 (5-15); BUN 33 mg/dL (7-18); Calcium,Total 8.6 mg/dL (8.5-10.1); Chloride 108 mmol/L (98-107); Creatinine, Serum 1.18 mg/dL (0.55-1.02); EST Glomerular Filtration Rate 46 mL/min (>60); Est Glom Filt Rate - Afr Amer 56 mL/min (>60); Estimated Creatinine Clearance 37.09 ml/min; Glucose 102 mg/dL (74-106); Potassium 4.2 mmol/L (3.5-5.1); Sodium Level 140 mmol/L (136-145)
--- NOTE | 2023-05-29 21:24 | CT_ITS ---
INDICATION: hip pain, ? facture EXAMINATION/TECHNIQUE: X-RAY - CT Pelvis W/O Contrast Injection COMPARISON: Hip and pelvis radiographs same day. FINDINGS: Noncontrast serial CT axial images through the pelvis and bilateral hips with coronal and sagittal reformatted series. BONES: Normal anatomic alignment without evidence of acute fracture or subluxation. 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 Lumbar orthopedic hardware, incompletely imaged, although no obvious hardware complication. SOFT TISSUES: Moderate amount of stool within the rectosigmoid raising concern for impaction. Colonic diverticulosis without focus of diverticulitis. CT/Pelvis without IV Contrast IMPRESSION: Moderate amount of stool within the rectosigmoid raising concern for impaction. 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 No acute osseous abnormality of the pelvis or bilateral hips. Electronically Signed: Bryant Joe MD at 22:19 EDT ,
[2023-05-29 22:47] VITALS: BP 115/76; PULSE 64; RESP 14; O2SAT 98
--- NOTE | 2023-05-29 23:01 | ED.RN ---
THIS RN CALLED REPORT TO [facility]. REPORT GIVEN TO ROMA AGUIAR. AT 0028.
--- NOTE | 2023-05-29 23:46 | ED.RN ---
REPORT GIVEN TO [facility] AT 2348. PT A &OX3.
== END 2023-05-29 23:47 ==
PROVIDERS: Emergency Provider Emergency Medicine; PCP Internal Medicine; Visit Provider Emergency Medicine
DX: S09.90XA Unspecified injury of head, initial encounter (principal); F03.90 Unspecified dementia, unspecified severity, without behavioral disturbance, psychotic disturbance, mood disturbance, and anxiety; S40.022A Contusion of left upper arm, initial encounter; S70.02XA Contusion of left hip, initial encounter; S80.02XA Contusion of left knee, initial encounter; W19.XXXA Unspecified fall, initial encounter; Z95.0 Presence of cardiac pacemaker
CPT/HCPCS: 70450; 71045; 72192; 73060; 73502; 73564; 80048; 85025; 96374; 96375; 99285; J2405

== ENCOUNTER → 2023-06-20 | Outpatient (REF) | payer MEDICARE, SELFPAY ==
[2023-06-20 09:49] LABS: Uric Acid 5.3 mg/dL (2.6-6.0)
== END ==
LOC: OLS.SW 07:05
PROVIDERS: PCP Internal Medicine; Visit Provider Internal Medicine
DX: M10.09 Idiopathic gout, multiple sites (principal)
CPT/HCPCS: 36415; 84550

== ENCOUNTER → 2023-07-23 | Outpatient (CLI) | payer MEDICARE, MEDICAID, SELFPAY ==
--- NOTE | 2023-07-23 13:52 | ART_ITS ---
Reason For Study: PVD Procedure A bilateral lower extremity continuous wave Doppler with analog waveform analysis,segmental pressures,and ankle brachial indexes without exercise. Left Segmental Pressures Left brachial= 154mmHg. Left posterior tibial artery = 168mmHg. Left dorsalis pedis artery = 145mmHg. Left digit = 115 mmHg. The left posterior tibial artery waveforms are triphasic. The left dorsalis pedis waveforms are triphasic. Right Segmental Pressures Right brachial= 147mmHg. Right posterior tibial artery = 162mmHg. Right dorsalis pedis artery = 131mmHg. Right digit = 112 mmHg. The right posterior tibial artery waveforms are triphasic. The right dorsalis pedis waveforms are triphasic. Indices The right ankle brachial index by the posterior tibial artery is 1.05. The right ankle brachial index by the dorsalis pedis is 0.85. The right digital-brachial index is 0.73. The left ankle brachial index by the posterior tibial artery is 1.09. The left ankle brachial index by the dorsalis pedis is 0.94. The left digital-brachial index is 0.75. VL/Lower Ext Art Exam w/o Exercis Interpretation Summary Triphasic Doppler waveforms are noted at ankle level bilaterally. Pulse-volume recordings appear diminished at digital level bilaterally, but satisfactory at all other levels b ilaterally. Resting ankle-brachial indices are normal bilaterally. Digital-brachial indices are nor mal bilaterally. There is no evidence of significant arterial occlusive disease in the lower ext remities bilaterally. Ordering Physician: Quirino Marks Referring Physician: Ifrah Baker Performed By: Quinton Sharma RVT
== END | disposition home or self-care (01) ==
LOC: CVS 13:50
PROVIDERS: PCP Internal Medicine; Referring Provider Podiatrist; Visit Provider Podiatrist
DX: I73.9 Peripheral vascular disease, unspecified (principal)
CPT/HCPCS: 93923

== ENCOUNTER → 2023-08-02 | Outpatient (CLI) | payer MEDICARE, MEDICAID, SELFPAY ==
--- NOTE | 2023-08-02 09:03 | NEURO ---
NCS and/or EMG Patient Report Ordering Doctor: Quirino Marks DATE OF SERVICE: 08/02/23 Clinical Summary: This is an 83 year old female patient presenting with complaints of numbness, tingling, and pain in the distal lower extremities from the knees to the toes. Symptoms are more pronounced in the right leg. She denies having any back pain or any sciatic symptoms. This EMG/NCS was performed to evaluate for peripheral polyneuropathy and lumbosacral radiculopathy. Nerve Conduction Studies Summary: All SNAP's were absent bilaterally. The peroneal-EDB CMAP's were absent bilaterally. The tibial-AH CMAP amplitude was reduced bilaterally. Needle Examination Summary: Needle examination demonstrated increased insertional activity and spontaneous activity (positive sharp waves and/or fibrillation potentials) in the left vastus lateralis, left tibialis anterior, and bilateral medial gastrocnemius muscles. There was a higher proportion of motor unit action potentials with reduced recruitment, increased amplitude, increased duration, and polyphasia in the bilateral tibialis anterior, bilateral peroneus longus, and bilateral medial gastrocnemius muscles. Reduced motor unit firing rates were seen in the left vastus lateralis and left vastus medialis muscles, which can be seen in the setting of pain intolerance and/or reduced effort. Impression: There is electrodiagnostic evidence of the following - 1) Severe, predominantly axonal, sensorimotor, peripheral polyneuropathy with active denervation 2) Subacute to chronic, left L4 radiculopathy, with active denervation Multi Select Codes Neurology Neurology Interp Codes: 97823-67 Musc test done w/n test comp (interp) (2) and 57867-63 Nrv cndj test 7-8 studies (interp)
== END | disposition home or self-care (01) ==
LOC: PSN 07:26
PROVIDERS: PCP Internal Medicine; Referring Provider Podiatrist; Visit Provider Podiatrist
DX: R20.2 Paresthesia of skin (principal)
CPT/HCPCS: 95886; 95910

== ENCOUNTER → 2023-11-05 | Outpatient (REF) | payer MEDICARE, MEDICAID, SELFPAY ==
[2023-11-05 09:10] LABS: Hematocrit 37.7 % (37-47); Hemoglobin 11.7 g/dL (12.0-15.0); Mean Corpuscular Hgb 30.6 pg (27.0-32.0); Mean Corpuscular Volume 98.7 fL (81-99); Mean Platelet Vol. 11.2 fl (6.2-12.0); Platelet Count 181 K/mm3 (150-450); RBC Distribution Width CV 13.1 % (11.6-14.6); RBC Distribution Width SD 47.3 fl (35.1-43.9); Red Blood Count 3.82 M/mm3 (4.2-5.4); White Blood Count 4.6 K/mm3 (4.4-11.0)
[2023-11-05 09:17] LABS: Vitamin D,25 Hydroxy 43.3 ng/mL
[2023-11-05 10:23] LABS: ALB/GLOB Ratio 1.1 RATIO (0.9-2.4); AST(SGOT) 19 U/L (15-37); Alanine Aminotransfer ALT/SGPT 24 U/L (13-56); Albumin, Serum 3.3 g/dL (3.2-5.0); Alkaline Phosphatase 113 U/L (45-117); Anion Gap 9 (5-15); BUN 29 mg/dL (7-18); BUN/Creat Ratio 25.2 RATIO (10-20); Calcium,Total 8.8 mg/dL (8.5-10.1); Chloride 110 mmol/L (98-107); Cholesterol 122 mg/dL (200); Creatinine, Serum 1.15 mg/dL (0.55-1.02); EST Glomerular Filtration Rate 48 mL/min (>60); Est Glom Filt Rate - Afr Amer 58 mL/min (>60); Glucose 88 mg/dL (74-106); High Density Lipoprotein 54 mg/dL; Potassium 4.4 mmol/L (3.5-5.1); Protein, Total 6.3 g/dL (6.4-8.2); Sodium Level 143 mmol/L (136-145); Thyroid Stim Hormone (TSH) 3.71 uIU/mL (0.358-3.74); Triglycerides 60 mg/dL; Very Low Density Lipoprotein 12 mg/dL (5-40)
[2023-11-05 10:53] LABS: Hemoglobin A1c 5.5 % (3.8-5.6)
== END ==
LOC: OLS.SW 05:00
PROVIDERS: PCP Internal Medicine; Visit Provider Internal Medicine
DX: I10 Essential (primary) hypertension (principal); E78.5 Hyperlipidemia, unspecified; E03.9 Hypothyroidism, unspecified; E55.9 Vitamin D deficiency, unspecified; Z79.899 Other long term (current) drug therapy
CPT/HCPCS: 36415; 80053; 80061; 82306; 83036; 84443; 85027

== ENCOUNTER → 2023-12-24 05:00 | Outpatient (REF) | payer MEDICARE, MEDICAID, SELFPAY ==
[2023-12-24 08:51] LABS: Absolute Lymphocyte Count 0.57 X10^3/uL (0.83-4.51); Basophil# 0.02 X10^3/uL; Basophil% 0.4 % (0-1); Eosinophil# 0.06 X10^3/uL; Eosinophils% 1.2 % (0-5); Hematocrit 38.5 % (37-47); Hemoglobin 11.8 g/dL (12.0-15.0); Lymphocyte # 0.57 X10^3/ul (0.83-4.51); Lymphocyte % 11.4 % (19-41); Mean Corp Hgb Conc 30.6 g/dL (32-36); Mean Corpuscular Hgb 30.5 pg (27.0-32.0); Mean Corpuscular Volume 99.5 fL (81-99); Mean Platelet Vol. 11.5 fl (6.2-12.0); Monocyte# 0.36 X10^3/uL; Monocyte% 7.2 % (0-10); NRBC Flagged by Analyzer 0 % (0-5); Neutrophil # 3.98 X10^3/uL (2.7-7.7); Neutrophil % 79.4 % (47-70); POSITIVE DIFFERENTIAL YES; Platelet Count 167 K/mm3 (150-450); RBC Distribution Width CV 13.2 % (11.6-14.6); RBC Distribution Width SD 47.8 fl (35.1-43.9); Red Blood Count 3.87 M/mm3 (4.2-5.4)
[2023-12-24 09:19] LABS: Anion Gap 0 (5-15); BUN 42 mg/dL (7-18); BUN/Creat Ratio 29.2 RATIO (10-20); Calcium,Total 8.1 mg/dL (8.5-10.1); Chloride 113 mmol/L (98-107); Creatinine, Serum 1.44 mg/dL (0.55-1.02); EST Glomerular Filtration Rate 37 mL/min (>60); Est Glom Filt Rate - Afr Amer 45 mL/min (>60); Glucose 107 mg/dL (74-106); Potassium 4.1 mmol/L (3.5-5.1); Sodium Level 143 mmol/L (136-145)
== END ==
LOC: OLS.SW 05:00
PROVIDERS: PCP Internal Medicine; Visit Provider Internal Medicine
DX: R19.7 Diarrhea, unspecified (principal)
CPT/HCPCS: 36415; 80048; 85025

== ENCOUNTER → 2023-12-27 05:00 | Outpatient (REF) | payer MEDICARE, MEDICAID, SELFPAY ==
[2023-12-27 08:20] LABS: Anion Gap 4 (5-15); BUN 25 mg/dL (7-18); BUN/Creat Ratio 23.6 RATIO (10-20); Calcium,Total 8.5 mg/dL (8.5-10.1); Chloride 111 mmol/L (98-107); Creatinine, Serum 1.06 mg/dL (0.55-1.02); EST Glomerular Filtration Rate 52 mL/min (>60); Est Glom Filt Rate - Afr Amer 63 mL/min (>60); Glucose 89 mg/dL (74-106); Potassium 4.3 mmol/L (3.5-5.1); Sodium Level 143 mmol/L (136-145)
== END ==
LOC: OLS.SW 05:00
PROVIDERS: PCP Internal Medicine; Visit Provider Internal Medicine
DX: R48.8 Other symbolic dysfunctions (principal)
CPT/HCPCS: 36415; 80048

== ENCOUNTER → 2024-01-31 05:00 | Outpatient (REF) | payer MEDICARE, MEDICAID, SELFPAY ==
[2024-01-31 09:22] LABS: Cholesterol 122 mg/dL (200); High Density Lipoprotein 56 mg/dL; Triglycerides 57 mg/dL; Very Low Density Lipoprotein 11 mg/dL (5-40)
== END ==
LOC: OLS.SW 05:00
PROVIDERS: PCP Internal Medicine; Visit Provider Internal Medicine
DX: E78.5 Hyperlipidemia, unspecified (principal)
CPT/HCPCS: 36415; 80061

== ENCOUNTER → 2024-02-07 06:00 | Outpatient (REF) | payer MEDICARE, MEDICAID, SELFPAY ==
[2024-02-07 15:02] LABS: Cholesterol 116 mg/dL (200); High Density Lipoprotein 52 mg/dL; Triglycerides 46 mg/dL; Very Low Density Lipoprotein 9 mg/dL (5-40)
== END ==
LOC: OLS.SW 06:00
PROVIDERS: PCP Internal Medicine; Visit Provider Internal Medicine
DX: E78.5 Hyperlipidemia, unspecified (principal); E03.9 Hypothyroidism, unspecified
CPT/HCPCS: 36415; 80061

== ENCOUNTER → 2024-04-07 | Outpatient (REF) | payer MEDICARE, MEDICAID, SELFPAY ==
[2024-04-07 09:10] LABS: Absolute Lymphocyte Count 1.16 X10^3/uL (0.83-4.51); Absolute Neutrophil Count 2.4 X10^3/uL (2.0-7.7); Basophil# 0.04 X10^3/uL; Basophil% 0.9 % (0-1); Eosinophil# 0.36 X10^3/uL; Eosinophils% 7.7 % (0-5); Hematocrit 36.7 % (37-47); Hemoglobin 11.5 g/dL (12.0-15.0); Lymphocyte # 1.16 X10^3/ul (0.83-4.51); Lymphocyte % 24.8 % (19-41); Mean Corp Hgb Conc 31.3 g/dL (32-36); Mean Corpuscular Hgb 30.7 pg (27.0-32.0); Mean Corpuscular Volume 97.9 fL (81-99); Mean Platelet Vol. 11.7 fl (6.2-12.0); Monocyte# 0.76 X10^3/uL; Monocyte% 16.2 % (0-10); NRBC Flagged by Analyzer 0 % (0-5); Neutrophil # 2.35 X10^3/uL (2.7-7.7); Neutrophil % 50.2 % (47-70); Platelet Count 156 K/mm3 (150-450); RBC Distribution Width CV 13.6 % (11.6-14.6); RBC Distribution Width SD 48.6 fl (35.1-43.9); Red Blood Count 3.75 M/mm3 (4.2-5.4); White Blood Count 4.7 K/mm3 (4.4-11.0)
[2024-04-07 09:58] LABS: Anion Gap 6 (5-15); BUN 30 mg/dL (7-18); BUN/Creat Ratio 26.1 RATIO (10-20); Calcium,Total 8.8 mg/dL (8.5-10.1); Chloride 109 mmol/L (98-107); Creatinine, Serum 1.15 mg/dL (0.55-1.02); EST Glomerular Filtration Rate 48 mL/min (>60); Est Glom Filt Rate - Afr Amer 58 mL/min (>60); Glucose 85 mg/dL (74-106); Potassium 4.3 mmol/L (3.5-5.1); Sodium Level 141 mmol/L (136-145)
== END ==
LOC: OLS.SW 05:25
PROVIDERS: PCP Internal Medicine; Visit Provider Internal Medicine
DX: R53.83 Other fatigue (principal); I10 Essential (primary) hypertension; I49.5 Sick sinus syndrome; F03.90 Unspecified dementia, unspecified severity, without behavioral disturbance, psychotic disturbance, mood disturbance, and anxiety
CPT/HCPCS: 36415; 80048; 85025

== ENCOUNTER → 2024-04-18 | Outpatient (REF) | payer MEDICARE, MEDICAID, SELFPAY | LOC: OLS.SW 10:00 | PROVIDERS: PCP Internal Medicine; Visit Provider Internal Medicine | DX: L08.9 Local infection of the skin and subcutaneous tissue, unspecified (principal) | CPT/HCPCS: 87070; 87077; 87186; 87205 ==

== ENCOUNTER → 2024-04-21 | Outpatient (REF) | payer MEDICARE, MEDICAID, SELFPAY ==
[2024-04-21 07:24] LABS: Hematocrit 35.3 % (37-47); Hemoglobin 11.2 g/dL (12.0-15.0); Mean Corp Hgb Conc 31.7 g/dL (32-36); Mean Corpuscular Hgb 30.4 pg (27.0-32.0); Mean Corpuscular Volume 95.7 fL (81-99); Mean Platelet Vol. 10.4 fl (6.2-12.0); Platelet Count 296 K/mm3 (150-450); RBC Distribution Width CV 12.5 % (11.6-14.6); RBC Distribution Width SD 44.2 fl (35.1-43.9); Red Blood Count 3.69 M/mm3 (4.2-5.4); White Blood Count 6.6 K/mm3 (4.4-11.0)
[2024-04-21 08:19] LABS: Anion Gap 7 (5-15); BUN 26 mg/dL (7-18); BUN/Creat Ratio 21.8 RATIO (10-20); Calcium,Total 8.9 mg/dL (8.5-10.1); Chloride 111 mmol/L (98-107); Creatinine, Serum 1.19 mg/dL (0.55-1.02); EST Glomerular Filtration Rate 46 mL/min (>60); Est Glom Filt Rate - Afr Amer 55 mL/min (>60); Glucose 96 mg/dL (74-106); Potassium 4.2 mmol/L (3.5-5.1); Sodium Level 142 mmol/L (136-145)
== END ==
LOC: OLS.SW 05:20
PROVIDERS: PCP Internal Medicine; Visit Provider Internal Medicine
DX: L08.9 Local infection of the skin and subcutaneous tissue, unspecified (principal)
CPT/HCPCS: 36415; 80048; 85027

== ENCOUNTER → 2024-04-23 | Outpatient (REF) | payer MEDICARE, MEDICAID, SELFPAY ==
[2024-04-23 10:42] LABS: Gentamicin,Once Daily Trough 4.6 ug/mL (<1.0)
[2024-04-23 14:00] LABS: Gentamicin, Once Daily Peak 9.3 ug/mL (6.0-15.0)
== END ==
LOC: OLS.SW 05:00
PROVIDERS: PCP Internal Medicine; Visit Provider Internal Medicine
DX: Z51.81 Encounter for therapeutic drug level monitoring (principal)
CPT/HCPCS: 36415; 80170

== ENCOUNTER → 2024-04-25 | Outpatient (REF) | payer MEDICARE, MEDICAID, SELFPAY ==
[2024-04-25 11:01] LABS: Gentamicin,Once Daily Trough 3.5 ug/mL (<1.0)
== END ==
LOC: OLS.SW 05:00
PROVIDERS: PCP Internal Medicine; Visit Provider Internal Medicine
DX: Z79.899 Other long term (current) drug therapy (principal)
CPT/HCPCS: 36415; 80170

== ENCOUNTER → 2024-04-29 05:00 | Outpatient (REF) | payer MEDICARE, MEDICAID, SELFPAY ==
[2024-04-29 09:36] LABS: Hematocrit 41.1 % (37-47); Hemoglobin 12.9 g/dL (12.0-15.0); Mean Corp Hgb Conc 31.4 g/dL (32-36); Mean Corpuscular Hgb 30.6 pg (27.0-32.0); Mean Corpuscular Volume 97.6 fL (81-99); Mean Platelet Vol. 11.3 fl (6.2-12.0); Platelet Count 293 K/mm3 (150-450); RBC Distribution Width CV 12.8 % (11.6-14.6); RBC Distribution Width SD 45.4 fl (35.1-43.9); Red Blood Count 4.21 M/mm3 (4.2-5.4); White Blood Count 7.5 K/mm3 (4.4-11.0)
[2024-04-29 10:01] LABS: Anion Gap 7 (5-15); BUN 33 mg/dL (7-18); BUN/Creat Ratio 22.6 RATIO (10-20); Calcium,Total 8.9 mg/dL (8.5-10.1); Chloride 107 mmol/L (98-107); Creatinine, Serum 1.46 mg/dL (0.55-1.02); EST Glomerular Filtration Rate 36 mL/min (>60); Est Glom Filt Rate - Afr Amer 44 mL/min (>60); Glucose 88 mg/dL (74-106); Potassium 4.5 mmol/L (3.5-5.1); Sodium Level 138 mmol/L (136-145)
== END ==
LOC: OLS.SW 05:00
PROVIDERS: PCP Internal Medicine; Visit Provider Internal Medicine
DX: L08.9 Local infection of the skin and subcutaneous tissue, unspecified (principal); Z51.81 Encounter for therapeutic drug level monitoring
CPT/HCPCS: 36415; 80048; 85027

== ENCOUNTER → 2024-05-01 | Outpatient (REF) | payer MEDICARE, MEDICAID, SELFPAY ==
[2024-05-01 10:19] LABS: Gentamicin,Once Daily Trough 0.9 ug/mL (<1.0)
== END ==
LOC: OLS.SW 05:00
PROVIDERS: PCP Internal Medicine; Visit Provider Internal Medicine
DX: Z79.899 Other long term (current) drug therapy (principal)
CPT/HCPCS: 36415; 80170

== ENCOUNTER → 2024-05-12 | Outpatient (REF) | payer MEDICARE, MEDICAID, SELFPAY ==
[2024-05-12 09:23] LABS: Anion Gap 6 (5-15); BUN 35 mg/dL (7-18); BUN/Creat Ratio 20.5 RATIO (10-20); Calcium,Total 9.1 mg/dL (8.5-10.1); Chloride 110 mmol/L (98-107); Creatinine, Serum 1.71 mg/dL (0.55-1.02); EST Glomerular Filtration Rate 30 mL/min (>60); Est Glom Filt Rate - Afr Amer 37 mL/min (>60); Glucose 94 mg/dL (74-106); Potassium 4.7 mmol/L (3.5-5.1); Sodium Level 143 mmol/L (136-145)
== END ==
LOC: OLS.SW 05:00
PROVIDERS: PCP Internal Medicine; Visit Provider Internal Medicine
DX: I10 Essential (primary) hypertension (principal); E78.5 Hyperlipidemia, unspecified; E03.9 Hypothyroidism, unspecified
CPT/HCPCS: 36415; 80048

== ENCOUNTER → 2024-06-24 | Outpatient (REF) | payer MEDICARE, MEDICAID, SELFPAY | LOC: OLS.SW 05:00 | PROVIDERS: PCP Internal Medicine; Visit Provider Internal Medicine | DX: R53.83 Other fatigue (principal) | CPT/HCPCS: 36415; 84443 ==

== ENCOUNTER → 2024-06-30 | Outpatient (REF) | payer MEDICARE, MEDICAID, SELFPAY ==
[2024-06-30 09:39] LABS: Absolute Lymphocyte Count 0.97 X10^3/uL (0.83-4.51); Absolute Neutrophil Count 2.1 X10^3/uL (2.0-7.7); Basophil# 0.02 X10^3/uL; Basophil% 0.5 % (0-1); Eosinophil# 0.56 X10^3/uL; Eosinophils% 13.7 % (0-5); Hematocrit 32.9 % (37-47); Hemoglobin 10.5 g/dL (12.0-15.0); Lymphocyte # 0.97 X10^3/ul (0.83-4.51); Lymphocyte % 23.8 % (19-41); Mean Corp Hgb Conc 31.9 g/dL (32-36); Mean Corpuscular Hgb 30.7 pg (27.0-32.0); Mean Corpuscular Volume 96.2 fL (81-99); Mean Platelet Vol. 11.6 fl (6.2-12.0); Monocyte# 0.47 X10^3/uL; Monocyte% 11.5 % (0-10); NRBC Flagged by Analyzer 0 % (0-5); Neutrophil # 2.05 X10^3/uL (2.7-7.7); Neutrophil % 50.3 % (47-70); Platelet Count 178 K/mm3 (150-450); RBC Distribution Width CV 13.6 % (11.6-14.6); Red Blood Count 3.42 M/mm3 (4.2-5.4); White Blood Count 4.1 K/mm3 (4.4-11.0)
[2024-06-30 10:10] LABS: AST(SGOT) 17 U/L (15-37); Alanine Aminotransfer ALT/SGPT 19 U/L (13-56); Albumin, Serum 2.9 g/dL (3.2-5.0); Alkaline Phosphatase 119 U/L (45-117); Anion Gap 5 (5-15); BUN 32 mg/dL (7-18); BUN/Creat Ratio 25.8 RATIO (10-20); Calcium,Total 8.5 mg/dL (8.5-10.1); Chloride 112 mmol/L (98-107); Creatinine, Serum 1.24 mg/dL (0.55-1.02); EST Glomerular Filtration Rate 44 mL/min (>60); Est Glom Filt Rate - Afr Amer 53 mL/min (>60); Glucose 77 mg/dL (74-106); Potassium 4.2 mmol/L (3.5-5.1); Protein, Total 5.9 g/dL (6.4-8.2); Sodium Level 143 mmol/L (136-145)
== END ==
LOC: OLS.SW 05:40
PROVIDERS: PCP Internal Medicine; Referring Provider Internal Medicine; Visit Provider Internal Medicine
DX: R25.9 Unspecified abnormal involuntary movements (principal)
CPT/HCPCS: 36415; 80053; 85025

== ENCOUNTER → 2024-12-09 | Outpatient (REF) | payer MEDICARE, MEDICAID, SELFPAY | LOC: OLS.SW 05:00 | PROVIDERS: PCP Internal Medicine; Visit Provider Internal Medicine | DX: E03.9 Hypothyroidism, unspecified (principal) | CPT/HCPCS: 36415; 84443 ==

== ENCOUNTER → 2025-01-06 05:00 | Outpatient (REF) | payer MEDICARE, MEDICAID, SELFPAY ==
[2025-01-06 10:00] LABS: Hematocrit 39.6 % (37-47); Hemoglobin 12.4 g/dL (12.0-15.0); Mean Corp Hgb Conc 31.3 g/dL (32-36); Mean Corpuscular Hgb 30.6 pg (27.0-32.0); Mean Corpuscular Volume 97.8 fL (81-99); Mean Platelet Vol. 11.8 fl (6.2-12.0); Platelet Count 210 K/mm3 (150-450); RBC Distribution Width CV 13.7 % (11.6-14.6); RBC Distribution Width SD 49.7 fl (35.1-43.9); Red Blood Count 4.05 M/mm3 (4.2-5.4); White Blood Count 7.1 K/mm3 (4.4-11.0)
[2025-01-06 11:23] LABS: Vitamin B12 3227 pg/mL (180-914); Vitamin D,25 Hydroxy 27.9 ng/mL (30-100)
--- OUTSIDE RECORDS SUMMARY | 2025-02-12 22:05 | XMS RPT_ITS | CCD ---
Author Organization [facility] CliniSyn[facility] Care Team Providers Care Bill Peddler Name Role Phone Gavino Melendez MD Primary Care Provider Dr. Gavino Melendez Primary Care Provider [phone] Dr. Nima Zimmerman Attending Provider Dr. Nima Zimmerman Referring Provider Dr. Gavino Melendez Referring Provider Kavya Ramos Attending Provider Unavailable Gavino Melendez MD Primary Care Provider Gavino Melendez MD Primary Care Provider Dr. Gavino Melendez Primary Care Provider [phone] Dr. Nima Zimmerman Attending Provider Dr. Nima Zimmerman Referring Provider MD Bob Ron Emergency Provider Dr. Oz Mar Admit Provider Dr. Oz Mar Attending Provider Dr. Oz Mar Other Provider Dr. Tanya Greenwood Attending Provider Dr. Tanya Greenwood Other Provider Dr. William Mclean Attending Provider Dr. William Mclean Other Provider GAVINO MELENDEZ Attending Unavailable GAVINO MELENDEZ Referring Unavailable GAVINO MELENDEZ Primary Care Unavailable GAVINO MELENDEZ Attending Unavailable GAVINO MELENDEZ Primary Care Unavailable GAVINO MELENDEZ Referring Unavailable ELDERBROCK, GAVINO Gonzalez Primary Care Unavailable JAREN MONTES Attending Unavailable ELDERBROCK, GAVINO Gonzalez Primary Care Unavailable ELDERBROCK, GAVINO Gonzalez Attending Unavailable ELDERBROCK, GAVINO D Primary Care Unavailable ELDERBROCK, GAVINO D Attending Unavailable ELDERBROCK, GAVINO D Referring Unavailable ELDERBROCK, GAVINO D Primary Care Unavailable ELDERBROCK, GAVINO D Referring Unavailable DACIA, GAVINO Gonzalez Primary Care Unavailable Dr. Ifrah Baker Primary Care Provider UnavailDr. Quirino Walker Referring Provider Dr. Quirino Marks Other Provider Joy, Dr. Palma Attending Provider Dr. Ifrah Baker Primary Care Provider Unavaila Dr. Quirino Moya Referring Provider Selina, Dr. Win Other Provider Joy, Dr. Plama Attending Provider Dr. Tray Cabrera Attending Provider Dr. Ifrah Baker Referring Provider Unavailable HAO Martínez Attending Provider Dr. Tray Cabrera Referring Provider Dr. Ifrah Baker MD Primary Care Provider UnaDr. Tray Marley MD Attending Provider Dr. Tray Cabrera MD Referring Provider Dr. Ifrah Baker MD Referring Provider Unavaila Krystal Gonzalez Attending Provider Dr. Ifrah Baker MD Primary Care Provider Dr. Tray Yuen MD Attending Provider Dr. Tray Cabrera MD Referring Provider Dr. Ifrah Baker MD Attending Provider Unavaila Ifrah Segura Primary Care Unavailable Ifrah Benitez Attending Unavailable Ifrah Baker Primary Care Unavailable Ifrah Benitez Attending Unavailable Tray Cabrera Referring Unavailable Gudla, Ifrah Primary Care Unavailable Rick, Lane Attending Unavailable Gudla, Ifrah Primary Care Unavailable Rick, Lane Attending Unavailable Rick, Lane Referring Unavailable Gudla, Ifrah Primary Care Unavailable Rick, Tray Attending Unavailable Rick, Tray Referring Unavailable Gudla, Ifrah Primary Care Unavailable Rick, Lane Attending Unavailable Gudla, Ifrah Primary Care Unavailable Gudla, Ifrah Referring Unavailable Krystal Martínez Attending Unavail able Rick, Lane Referring Unavailable Rick, Lane Attending Unavailable Gudla, Ifrah Primary Care Unavailable Gudla, Ifrah Primary Care Unavailable Gudla OLS, Ifrah Attending Unavailable Gudla, Ifrah Primary Care Unavailable Gudla OLS, Ifrah Attending Unavailable Gudla, Ifrah Primary Care Unavailable Gudla OLS, Ifrah Attending Unavailable Gudla, Ifrah Primary Care Unavailable Gudla OLS, Ifrah Attending Unavailable Gudla, Ifrah Primary Care Unavailable Gudla OLS, Ifrah Attending Unavailable Gudla, Ifrah Primary Care Unavailable Gudla OLS, Ifrah Attending Unavailable Gudla, Ifrah Primary Care Unavailable Gudla OLS, Ifrah Attending Unavailable Gudla, Ifrah Primary Care Unavailable Gudla OLS, Ifrah Attending Unavailable Gudla OLS, Ifrah Referring Unavailable Gudla, Ifrah Primary Care Unavailable Gudla OLS, Ifrah Attending Unavailable Gudla, Ifrah Primary Care Unavailable Gudla OLS, Ifrah Attending Unavailable Allergies Allergy Classification Reported Allergen(s) Allergy Type Date of Onset Reaction(s) Facility (13 sources) Amoxicillin; Translations: [AMOXICILLIN] Drug Allergy [address] [place] [address] (13 sources) Cefadroxil; Translations: [CEFADROXIL] Drug Allergy [address] [place] [address] (13 sources) Grass pollen; Translations: [GRASS POLLEN] Propensity to adverse reactions [address] [place] [address] Work Phone: (13 sources) Ofloxacin; Translations: [OFLOXACIN] Drug Allergy [address] [place] [address] (13 sources) Osage Needle Oil; Translations: [PINE NEEDLE OIL] Propensity to adverse reactions 5 [facility] Work Phone: (13 sources) Penicillins Allergy to substance 2 Other [facility] (13 sources) Sulfonamides (Antibiotic) Allergy to substance 2 Other [facility] (4 sources) PINE Allergy to substance 2 Itching [facility] (10 sources) Environmental Allergies: Uncoded; Translations: [Environmental Allergies: Uncoded] Allergy to substance 3 Itching [facility] Comment on above: PINE (1 source) Penicillins Drug allergy (disorder) 5 [facility] Repository (1 source) Sulfonamides (Antibiotic) Drug allergy (disorder) 5 [facility] Repository Medications Current Medications Medication Drug Class(es) Dates Sig (Normalized) Sig (Original) 8 hr acetaminophen 650 mg extended release oral tablet (1 source) Start: 05-27-2022 take 1 tablet by mouth every eight hours Acetaminophen (Tylenol 8 Hour) 650 mg tablet extended release Active 650 MG PO Q8H May 27, 2022 12:00am acetaminophen 325 mg / HYDROcodone bitartrate 5 mg oral tablet (3 sources) Opioid Agonist Start: 10-30-2024 Hydrocodone-Acetami nophen 5-325 mg tablet Active 1 {tbl} PO EVERY 4-6 HOURS as needed October 30, 2024 1:00am atorvastatin 20 mg oral tablet (20 sources) HMG-CoA Reductase Inhibitor Start: 12-17-2020 End: 12-29-2021 take 1 tablet by mouth at bedtime Atorvastatin 20 MG tablet Active 20 mg PO AT BEDTIME December 17, 2020 12:00am Comment on above: Take 1 tablet by dustin once daily. busPIRone hydrochloride 10 mg oral tablet (20 sources) Start: 12-05-2021 take 10 mg by mouth once daily Buspirone Active 10 MG PO DAILY December 05, 2021 12:00am Start: 11-28-2021 take 1 tablet by dustin th twice daily Buspirone 10 mg tablet Active 10 mg PO TWICE A DAY December 05, 2021 12:00am Comment on above: Take 1 tablet by dustin twice daily. citalopram 20 mg oral tablet (20 sources) Serotonin Reuptake Inhibitor Start: 12-05-2021 take 40 mg by mouth once daily Citalopram Active 40 MG PO DAILY December 05, 2021 2:17pm Start: 08-05-2021 End: 11-28-2021 take 1 tablet by mouth once daily citalopram (CELEXA) 40 mg tablet Indications: Anxiety and depression Take 1 tablet by mouth once daily. 90 tablet 0 08/05/2021 11/28/2021 Discontinued Start: 06-27-2021 End: 12-05-2021 take 1 tablet by mouth once daily Citalopram 20 mg tablet Active 20 mg PO DAILY December 05, 2021 2:17pm Comment on above: Take 1 tablet by dustin th once daily. gabapentin 300 mg oral capsule (3 sources) Anti-epileptic Agent Start: take 1 capsule by mouth once daily Gabapentin 300 mg capsule Active 300 mg PO daily October 30, 2024 1:00am levothyroxine sodium 0.1 mg oral tablet (20 sources) l-Thyroxine Start: End: take 1 tablet by mouth once daily Levothyroxine 100 mcg tablet Active 100 ug PO DAILY June 27, 2021 12:00am Comment on above: Take 1 tablet by dustin once daily. Take on empty stomach. For Thyroid sulfamethoxazole 800 mg / trimethoprim 160 mg oral tablet (1 source) Dihydrofolate Reductase Inhibitor Antibacterial, Sulfonamide Antimicrobial Start: 023 End: take 1 tablet by mouth twice daily sulfamethoxazole-tri methoprim (BACTRIM DS) 800-160 mg per tablet Take 1 tablet by mouth twice daily for 3 days. 6 tablet 0 09/30/2022 10/03/2022 Active Comment on above: Take 1 tablet by dustin twice daily for 3 days. 24 hr venlafaxine 37.5 mg extended release oral capsule (4 sources) Serotonin and Norepinephrine Reuptake Inhibitor Start: take 1 capsule by mouth once daily Venlafaxine (Effexor Xr) 37.5 mg capsule,extended release 24hr Active 37.5 mg PO DAILY October 29, 2023 1:00am Completed/Discontinued Medications Medication Drug Class(es) Dates Sig (Normalized) Sig (Original) cholecalciferol 0.025 mg oral capsule (20 sources) Vitamin D Start: 03-15-2014 End: 10-30-2024 take 1 capsule by mouth once daily Cholecalciferol (Vitamin D3) (Vitamin D3) 1,000 UNIT capsule Discontinued 1000 U PO DAILY March 15, 2014 12:00am October 30, 2024 11:19am Comment on above: Take 1,000 Units by mouth once daily. COMPOUNDED PRESCRIPTION (12 sources) Start: 05-16-2017 COMPOUNDED PRESCRIPTION Powerstep orthotics (L85.9) Hyperkeratosis (primary encounter diagnosis) (M20.12) Acquired hallux valgus of left foot (M12.9) Arthropathy 1 Device 0 05/16/2017 Active Comment on above: Powerstep orthotics (L85.9) Hyperkeratosis (primary encounter diagnosis) (M20.12) Acquired hallux valgus of left foot (M12.9) Arthropathy LORazepam 1 mg oral tablet (13 sources) Benzodiazepine Start: 12-17-2020 End: 12-20-2020 Lorazepam 1 MG tablet Discontinued 1 {tbl} DAILY NEEDED as needed for Anxiety December 17, 2020 12:00am December 20, 2020 12:17pm naproxen sodium 220 mg oral tablet (1 source) Nonsteroidal Anti-inflammatory Drug End: 11-28-2021 take 1 tablet by mouth twice daily at mealtime naproxen sodium (ALEVE) 220 mg tablet Take 220 mg by mouth twice daily with meals. 0 11/28/2021 Discontinued Comment on above: Take 220 mg by mouth twice daily with meals. Problems Active Problems Problem Classification Problem Date Documented Date Episodic/Chronic Adjustment disorders (13 sources) Grief finding; Translations: [Adjustment disorder with depressed mood] 12-18-2020 Chronic Anxiety disorders (16 sources) Mixed anxiety and depressive disorder; Translations: [Anxiety disorder, unspecified] Onset: 05-30-2011 Chronic Cardiac dysrhythmias (20 sources) Sick sinus syndrome; Translations: [Sick sinus syndrome] Onset: 11-07-2024 Chronic Chronic kidney disease (13 sources) Chronic kidney disease stage 3A ; Translations: [Stage 3a chronic kidney disease] Onset: 08-01-2016 11-24-2021 Chronic Chronic kidney disease (1 source) Chronic kidney disease; Translations: [Stage 3a chronic kidney disease (HCC)] Onset: 11-24-2021 Conditions associated with dizziness or vertigo (13 sources) Vertigo; Translations: [Dizziness and giddiness] 08-23-2019 Episodic Conduction disorders (20 sources) Sinus node dysfunction; Translations: [Other specified heart block] Onset: 08-27-2021 Chronic Comment on above: IMPLANTED DEVICE(S): PPM Ventricular lead - Trade Embalmer: [employer] Vern, Model # Tendril STS 2088TC-58 , Serial # [id number] Atrial lead - Trade Embalmer: [employer] Vern, Model # Tendril STS 2088TC-52 , Serial # [id number] Generator - Trade Embalmer: [employer] Vern, Model # Assurity MRI [id number] , Serial # [id number] Delirium, dementia, and amnestic and other cognitive disorders (20 sources) Dementia; Translations: [Unspecified dementia without behavioral disturbance] Onset: 05-30-2021 Chronic Disorders of lipid metabolism (20 sources) Hyperlipidemia; Translations: [Hyperlipidemia, unspecified] Onset: 08-01-2016 Chronic E Codes: Fall (8 sources) Fall in retirement; Translations: [Unspecified fall, initial encounter] 05-29-2023 Episodic Essential hypertension (19 sources) Essential hypertension; Translations: [Essential (primary) hypertension] Onset: 07-23-2006 Chronic Hypertension with complications and secondary hypertension (12 sources) Hypertensive renal disease; Translations: [Hypertensive chronic kidney disease with stage 1 through stage 4 chronic kidney disease, or unspecified chronic kidney disease] Onset: 11-24-2021 11-24-2021 Chronic Immunizations and screening for infectious disease (1 source) Needs influenza immunization; Translations: [Encounter for immunization] Episodic Malaise and fatigue (18 sources) Asthenia; Translations: [Weakness] Onset: 08-01-2024 Episodic Nonspecific chest pain (20 sources) Chest pain; Translations: [Chest pain, unspecified] 08-22-2019 Episodic Nutritional deficiencies (13 sources) Vitamin D deficiency; Translations: [Vitamin D deficiency, unspecified] Onset: 10-22-2008 07-16-2015 Chronic Osteoarthritis (13 sources) Primary gonarthrosis, bilateral; 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] Onset: 06-27-2016 06-27-2016 Chronic Other aftercare (2 sources) Encounter for therapeutic drug level monitoring; Translations: [Encounter for therapeutic drug level monitoring] Onset: 05-14-2024 Episodic Other bone disease and musculoskeletal deformities (12 sources) Osteopenia; Translations: [Other specified disorders of bone density and structure, unspecified site] 08-17-2011 Episodic Other circulatory disease (13 sources) Low blood pressure; Translations: [Hypotension, unspecified] Episodic Other circulatory disease (3 sources) Hypotension, unspecified; Translations: [Hypotension, unspecified] Episodic Other connective tissue disease (1 source) History of total knee arthroplasty; Translations: [Presence of unspecified artificial knee joint] Chronic Other connective tissue disease (1 source) Paraparesis; Translations: [Other symptoms and signs involving the musculoskeletal system] Episodic Other connective tissue disease (13 sources) Recurrent falls ; Translations: [Repeated falls] Episodic Other connective tissue disease (3 sources) Repeated falls; Translations: [History of fall] Episodic Other injuries and conditions due to external causes (8 sources) Closed injury of head; Translations: [Unspecified injury of head, initial encounter] 05-29-2023 Episodic Other nervous system disorders (13 sources) Neuropathy of lower limb; Translations: [Unspecified mononeuropathy of unspecified lower limb] Onset: 10-25-2010 08-22-2021 Chronic Other screening for suspected conditions (not mental disorders or infectious disease) (15 sources) Imaging of thorax abnormal; Translations: [Abnormal findings on diagnostic imaging of other specified body structures] Chronic Other screening for suspected conditions (not mental disorders or infectious disease) (13 sources) Other specified abnormal findings of blood chemistry; Translations: [Elevated liver function tests] 12-17-2020 Episodic Residual codes; unclassified (14 sources) Confusional state; Translations: [Disorientation, unspecified] Episodic Spondylosis; intervertebral disc disorders; other back problems (12 sources) Spondylosis; Translations: [Spondylosis, unspecified] 06-27-2005 Chronic Superficial injury; contusion (20 sources) Contusion of orbital tissues; Translations: [Contusion of eyeball and orbital tissues, right eye, initial encounter] 12-18-2020 Episodic Syncope (20 sources) Syncope; Translations: [Syncope and collapse] Episodic Thyroid disorders (20 sources) Iatrogenic hypothyroidism; Translations: [Hypothyroidism due to medicaments and other exogenous substances] Onset: 04-16-2012 Chronic Transient cerebral ischemia (13 sources) Transient cerebral ischemia; Translations: [Transient cerebral ischemic attack, unspecified] 12-18-2020 Chronic Urinary tract infections (20 sources) Urinary tract infectious disease; Translations: [Urinary tract infection, site not specified] Episodic Past or Other Problems Problem Classification Problem Date Documented Da te Episodic/Chronic Cancer of breast (12 sources) History of malignant neoplasm of breast; Translations: [Personal history of malignant neoplasm of breast] Onset: 09-01-2019 09-01-2019 Episodic Other acquired deformities (12 sources) Degenerative spondylolisthesis; Translations: [Spondylolisthesis, site unspecified] Onset: 10-26-2011 Episodic Other bone disease and musculoskeletal deformities (12 sources) History of amputation of left lesser toe; Translations: [Acquired absence of other left toe(s)] Onset: 09-01-2019 09-01-2019 Episodic Other connective tissue disease (12 sources) Rupture of tendon of biceps, long head; Translations: [Spontaneous rupture of flexor tendons, unspecified upper arm] Onset: 12-09-2008 08-22-2021 Episodic Other nervous system disorders (1 source) Unspecified abnormal involuntary movements; Translations: [Unspecified abnormal involuntary movements] Onset: 08-01-2024 Episodic Other nutritional; endocrine; and metabolic disorders (12 sources) Weight loss; Translations: [Abnormal weight loss] Onset: 11-03-2020 11-03-2020 Episodic Skin and subcutaneous tissue infections (2 sources) Local infection of the skin and subcutaneous tissue, unspecified; Translations: [Local infection of the skin and subcutaneous tissue, unspecified] Onset: 05-07-2024 Episodic Spondylosis; intervertebral disc disorders; other back problems (12 sources) Spinal stenosis of lumbar region; Translations: [Spinal stenosis, lumbar region without neurogenic claudication] Onset: 10-26-2011 Episodic Results Test Name Value Interpretation Reference Range Facility CBC-Complete Blood Cnt No Di ffon 01-06-2025 RDW SD 49.7 fl High 35.1-43.9 [facility] Comment on above: Order Comment: 408.2 Performed By: #### M 100.2000, M100.3000 #### [facility] [address] [place], [place], [address] CBC-Complete Blood Cnt No Di ffOrdered By: Ifrah Baker on 01-06-2025 Erythrocyte distribution width (RBC) [Ratio] 13.7 % 11.6-14.6 [facility] Comment on above: Order Comment: 408.2 Performed By: #### M , .3000 #### [facility] [address] [place], [address] Hematocrit (Bld) [Volume fraction] 39.6 % 37-47 [facility] Comment on above: Order Comment: 408.2 Performed By: #### M , .3000 #### [facility] [address] [place], [address] Hemoglobin (Bld) [Mass/Vol] 12.4 g/dL 12.0-15.0 [facility] Comment on above: Order Comment: 408.2 Performed By: #### M , .3000 #### [facility] [address] [place], [address] MCH (RBC) [Entitic mass] 30.6 pg 27.0-32.0 [facility] Comment on above: Order Comment: 408.2 Performed By: #### M , .3000 #### [facility] [address] [place], [address] MCHC (RBC) [Mass/Vol] 31.3 g/dL Low 32-36 [facility] Comment on above: Order Comment: 408.2 Performed By: #### M , 00.3000 #### [facility] [address] [place], [address] MCV (RBC) [Entitic vol] 97.8 fL 81-99 [facility] Comment on above: Order Comment: 408.2 Performed By: #### M , M100.3000 #### [facility] [address] [place], [address] Platelet mean volume (Bld) [Entitic vol] 11.8 fL 6.2-12.0 [facility] Comment on above: Order Comment: 408.2 Performed By: #### M , M100.3000 #### [facility] [address] [place], [address] Platelets (Bld) [#/Vol] 210 10*3/uL 150-450 [facility] Comment on above: Order Comment: 408.2 Performed By: #### M , M100.3000 #### [facility] [address] [place], [address] RBC (Bld) [#/Vol] 4.05 10*6/uL Low 4.2-5.4 [facility] Comment on above: Order Comment: 408.2 Performed By: #### M , M100.3000 #### [facility] [address] [place], [address] WBC (Bld) [#/Vol] 7.1 10*3/uL 4.4-11.0 [facility] Comment on above: Order Comment: 408.2 Performed By: #### M , M1.3000 #### [facility] [address] [place], [address] Erythrocyte distribution wid th standard deviationOrdered By: Ifrah Baker on 01-06-2025 Erythrocyte distribution width (RBC) [Ratio] 49.7 fl High 35.1-43.9 [facility] TSH DL <= 0.005 mIU/L QnOrde red By: Ifrah Baker on 01-06-2025 TSH Qn 2.250 uIU/mL 0.300-4.200 [facility] Thyroid Stim Hormone (TSH)on 01-06-2025 TSH 2.250 uIU/mL Normal 0.300-4.200 [facility] Comment on above: Order Comment: 408.2 Performed By: #### M , M100.3000 #### [facility] [address] [place], [place], [address] Vitamin B12on 01-06-2025 Cobalamin (Vitamin B12) [Mass/Vol] 3227 pg/mL High 180-914 [facility] Comment on above: Order Comment: 408.2 Performed By: #### M 100.2000, M100.3000 #### [facility] [address] [place], [place], [id number] Vitamin B12 ser/plasOrdered By: Ifrah Baker on 01-06-2025 Cobalamin (Vitamin B12) [Mass/Vol] 3227 pg/mL High 180-914 [facility] Vitamin D,25 Hydroxyon 01-06 Vitamin D 25-OH 27.9 ng/mL Low 30-100 [facility] Comment on above: Order Comment: 408.2 Result Comment: [place] min D Status Deficiency: <20 ng/mL (50nmol/L) Insufficiency: 20-30 ng/mL (50-75 nmol/L) Sufficiency: 30-100 ng/mL (75-250 nmol/L) Toxicity: >100 ng/mL (>250 nmol/L) Performed By: #### L 100.0100, L500.2500 #### [facility] [address] [facility] [place], [place], [id number] TSH DL <= 0.005 mIU/L QnOrde red By: Ifrah Baker on 12-09-2024 TSH Qn 3.680 uIU/mL 0.300-4.200 [facility] Thyroid Stim Hormone (TSH)on 12-09-2024 TSH 3.680 uIU/mL Normal 0.300-4.200 [facility] Comment on above: Order Comment: 408.2 Performed By: #### L 501.9520 #### [facility] [address] [place], [place], [address] Cardiology Visit Reporton Cardiology Visit Report [facility] [address] [place], [place] [address] OFFICE VISIT Date of Service: 10/30/24 MR#: [id number] Acct: [id number] Name: LETTY LEON Rep #: [id number] : 1940 Provider: HAO Herrera Age/Sex: 84/F Location: [facility] [place] Status: Signed HPI HPI History of Present Illness Details: This is an 84-year-old female that presents here today for a cardiovascular follow up. She has a history of hypertension and hyperlipidemia. During her hospital stay in 2020 it was noted that she was bradycardic throughout her admission. She was not lightheaded or shortness of breath or had any weakness. Echocardiogram was ordered however this was difficult to obtain. She was discharged home on a 30-day event monitor. She did have a CT of her head and neck in November 2020 which at that time did not demonstrate any occlusive disease. Her 30 day event monitor noted a pause and she underwent a PPM placement on 09/26/21. Pt does have dementia. She is a poor historian. She is now residing at [facility]. 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 PPM interrogation today demonstrates 1 mode switch with an episode of Afib that was 1 min and 5 sec. Intake Vital Signs 10/29/23 10:14 10/30/24 07:38 10/30/24 10:15 Height 5 ft 9 in 5 ft 9 in 5 ft 9 in Weight: 217 lb BMI 32.0 BP 117/79 Blood Pressure Location Lt brachial Position Sitting Respiration 18 Pulse 60 Pulse Source Monitor Intake Visit Reasons: 1 Y FU/BLACK @ 10 Digital Designer Required: No Is patient in pain?: No Allergies Environmental Allergies: Uncoded Allergy (Verified 10/30/24 10:16) Itching Penicillins (PCN) Allergy (Verified 10/30/24 10:16) Other Sulfa (Sulfonamide Antibiotics) Allergy (Verified 10/30/24 10:16) Other Medications ???Medication ???Instructions ???Recorded ???Confirmed ???Type atorvastatin 20 mg tablet 20 mg PO QHS cholesterol 12/17/20 10/30/24 History levothyroxine 100 mcg tablet 100 mcg PO DAILY thyroid 06/27/21 10/30/24 History buspirone 10 mg tablet 10 mg PO BID DEPRESSION 12/05/21 0 10/30/24 History citalopram 20 mg tablet 20 mg PO DAILY depression 12/05/21 10/30/24 History venlafaxine 37.5 mg 37.5 mg PO DAILY 10/29/23 10/30/24 History capsule,extended release 24 hr (Effexor XR) gabapentin 300 mg capsule 300 mg PO QDAY 10/30/24 10/30/24 H istory hydrocodone-acetaminop hen 5-325mg 1 tab PO Q4-6H PRN 10/30/2410/30 History 5mg-325mg Have you fallen in the past year?: Yes PFSH Medical History (Updated 10/30/24 @ 10:46 by Krystal BUI, PA) PAF (paroxysmal atrial fibrillation) Presence of permanent cardiac pacemaker ( 09/26/21) Sinus pause Sick sinus syndrome due to SA node dysfunction Dementia Bradycardia Osteoporosis Kidney disease Kidney stones Dementia Anxiety and depression Syncope HLD (hyperlipidemia) HTN (hypertension) Hypothyroidism Hypertension Surgical History History of lumbar fusion H/O thyroidectomy H/O breast surgery History of appendectomy History of knee joint replacement Family History Father Heart disease Kidney disease Mother Heart disease Social History household members: other details: Her son lives with her and takes care of her. Smoking Status: Never smoker alcohol intake: never substance use type: does not use additional social history: Uses lift chair at home with stairs and walker for all walking. ROS Const Const: Positive for fatigue; Negative for weakness, headache(s) or frequent falls Eyes Eyes: Negative for blurry vision ENT ENT: Negative for headache(s), dizziness or Nosebleed/epistaxis Cardio Chest Pain: No Palpitations: No Edema: Bilateral Muscle aches with walking: None Resp Respiratory: Negative for SOB with activity, SOB at rest or SOB orthopnea SOB lying down GI GI: Negative nausea, vomiting, heartburn, bright, red blood in stools or black,tarry stools : Negative for hematuria Neuro Neuro: Positive for memory loss; Negative for dizziness, frequent falls, headache(s), weakness or blurry vision Endo Endo: Positive for fatigue Cardiology Exam Const Appearance: cooperative, no acute distress, well developed and frail appearing (elderly in WC) Orientation: alert, awake and oriented to person Head Head: normocephalic and atraumatic Mouth: moist mucous membranes Eyes General: appearance normal, both eyes and all related structures Conjunctivae: conjunctivae normal Pupils: PERRL EOM: EOM intact bilaterally Neck Neck: normal visual inspection, no lymphadenopathy and no JVD C (more content not included)... Normal [facility] Pacemaker Checkon 10-30-2024 Pacemaker Check [facility] [address] [place] [address] Pacemaker Check Date of Service: 10/30/241415 MR#: [id number] Acct: [id number] Name: LETTY LEON Rep #: [id number] : 1940 From: Kavya Ramos Age/Sex: 84/F Location: [facility] Status: Signed Assessment and Plan Assessment and Plan (1) Presence of permanent cardiac pacemaker: Status: Acute Comment: IMPLANTED DEVICE(S): PPM Ventricular lead - Trade Embalmer: St Vren, Model # Tendril STS 2088TC-58 , Serial # [id number] PPM Atrial lead - Trade Embalmer: St Vern, Model # Tendril STS 2088TC-52 , Serial # [id number] PPM Generator - Trade Embalmer: St Vern, Model # Assurity MRI [id number] , Serial # [id number] (2) PAF (paroxysmal atrial fibrillation): Status: Acute (3) Sick sinus syndrome due to SA node dysfunction: Status: Acute 10/30/24 1416 Date Kavya Alcalaignjose Signature: Date (if applicable) CC: Normal [facility] CBC W/Diff, Automatedon 11-0 4-2023 Absolute Lymph 0.97 X10 3/uL Normal 0.83-4.51 [facility] Comment on above: Performed By: #### M , 00.3000 #### [facility] [address] [place], [address] Absolute Neut 2.1 X10 3/uL Normal 2.0-7.7 [facility] Comment on above: Performed By: #### M , .3000 #### [facility] [address] [place], [address] Basophils/100 WBC (Bld) 0.5 % Normal 0-1 [facility] Comment on above: Performed By: #### M , 00.3000 #### [facility] [address] [place], [address] Eosinophils/100 WBC (Bld) 13.7 % High 0-5 [facility] Comment on above: Performed By: #### M , 00.3000 #### [facility] [address] [place], [address] Erythrocyte distribution width (RBC) [Ratio] 13.6 % Normal 11.6-14.6 [facility] Comment on above: Performed By: #### M , 00.3000 #### [facility] [address] [place], [address] Hematocrit (Bld) [Volume fraction] 32.9 % Low 37-47 [facility] Comment on above: Performed By: #### M , M100.3000 #### [facility] [address] [place], [address] Hemoglobin (Bld) [Mass/Vol] 10.5 g/dL Low 12.0-15.0 [facility] Comment on above: Performed By: #### M , 00.3000 #### [facility] [address] [place], [address] IG% 0.200 Normal 0.0-0.9 [facility] Comment on above: Result Comment: IG% - Immature Granulocytes (promyelocytes, myelocytes and metamyelocytes) > 1% indicates that a LEFT SHIFT is Present. Performed By: #### M 100.1999, M100.3000 #### [facility] [address] [place], [address] Lymphocytes/100 WBC (Bld) 23.8 % Normal 19-41 [facility] Comment on above: Performed By: #### M , M100.3000 #### [facility] [address] [place], [address] MCH (RBC) [Entitic mass] 30.7 pg Normal 27.0-32.0 [facility] Comment on above: Performed By: #### M , M100.3000 #### [facility] [address] [place], [address] MCHC (RBC) [Mass/Vol] 31.9 g/dL Low 32-36 [facility] Comment on above: Performed By: #### M , M100.3000 #### [facility] [address] [place], [address] MCV (RBC) [Entitic vol] 96.2 fL Normal 81-99 [facility] Comment on above: Performed By: #### M , M100.3000 #### [facility] [address] [place], [address] Monocytes/100 WBC (Bld) 11.5 % High 0-10 [facility] Comment on above: Performed By: #### M , M100.3000 #### [facility] [address] [place], [address] Neutrophils/100 WBC (Bld) 50.3 % Normal 47-70 [facility] Comment on above: Performed By: #### M , M100.3000 #### [facility] [address] [place], [address] Nucleated RBC (Bld) [#/Vol] 0 10*3/uL Normal 0-5 [facility] Comment on above: Performed By: #### M , 00.3000 #### [facility] [address] [place], [address] Platelet mean volume (Bld) [Entitic vol] 11.6 fL Normal 6.2-12.0 [facility] Comment on above: Performed By: #### M , .3000 #### [facility] [address] [place], [address] Platelets (Bld) [#/Vol] 178 10*3/uL Normal 150-450 [facility] Comment on above: Performed By: #### M , .3000 #### [facility] [address] [place], [address] RBC (Bld) [#/Vol] 3.42 10*6/uL Low 4.2-5.4 [facility] Comment on above: Performed By: #### M , .3000 #### [facility] [address] [place], [address] RDW SD 48.0 fl High 35.1-43.9 [facility] Comment on above: Performed By: #### M , M100.3000 #### [facility] [address] [place], [address] WBC (Bld) [#/Vol] 4.1 10*3/uL Low 4.4-11.0 [facility] Comment on above: Performed By: #### M , .3000 #### [facility] [address] [place], [address] Comprehensive Metabolic Prof ilon 06-30-2024 Albumin [Mass/Vol] 2.9 g/dL Low 3.2-5.0 [facility] Comment on above: Performed By: #### M .1999, M100.3000 #### [facility] [address] [place], [address] Albumin/Globulin [Mass ratio] 1.0 {ratio} Normal 0.9-2.4 [facility] Comment on above: Performed By: #### M , M100.3000 #### [facility] [address] [place], [address] ALK P 119 U/L High 45-117 [facility] Comment on above: Performed By: #### M , M100.3000 #### [facility] [address] [place], [address] ALT [Catalytic activity/Vol] 19 U/L Normal 13-56 [facility] Comment on above: Performed By: #### M , M100.3000 #### [facility] [address] [place], [address] AST [Catalytic activity/Vol] 17 U/L Normal 15-37 [facility] Comment on above: Performed By: #### M , M100.3000 #### [facility] [address] [place], [address] Bilirubin [Mass/Vol] 0.60 mg/dL Normal 0.20-1.00 [facility] Comment on above: Result Comment: For patients on eltrombopag therapy, use of Dimension [place] TBIL is not recommended. Performed By: #### M , M100.3000 #### [facility] [address] [place], [address] BUN/CRE 25.8 RATIO High 10-20 [facility] Comment on above: Performed By: #### M , .2999 #### [facility] [address] [place], [address] CA,Total 8.5 mg/dL Normal 8.5-10.1 [facility] Comment on above: Performed By: #### M , .3000 #### [facility] [address] [place], [address] Chloride [Moles/Vol] 112 mmol/L High 98-107 [facility] Comment on above: Performed By: #### M , .2999 #### [facility] [address] [place], [address] CO2 [Moles/Vol] 27.0 mmol/L Normal 21.0-32.0 [facility] Comment on above: Performed By: #### M , .3000 #### [facility] [address] [place], [address] Creatinine [Mass/Vol] 1.24 mg/dL High 0.55-1.02 [facility] Comment on above: Result Comment: The validity of the calculated GFR GFRAA in patients over 70 years has not been determined. Clinical correlation is essential. Performed By: #### M , .2999 #### [facility] [address] [place], [address] EST GFR - AA 53 mL/min Low >60 [facility] Comment on above: Result Comment: Afri can [place] GFR Calc Performed By: #### M , .3000 #### [facility] [address] [place], [address] GAP 5 Normal 5-15 [facility] Comment on above: Performed By: #### M , .3000 #### [facility] [address] [place], [address] GFR/1.73 sq M.predicted among non-blacks MDRD (S/P/Bld) [Vol rate/Area] 44 mL/min/{1.73_m2} Low >60 [facility] Comment on above: Result Comment: Non- GFR Calc Performed By: #### M , M100.3000 #### [facility] [address] [place], [address] Globulin (S) [Mass/Vol] 3.0 g/dL Normal 2.2-4.2 [facility] Comment on above: Performed By: #### M , M100.3000 #### [facility] [address] [place], [address] Glucose [Mass/Vol] 77 mg/dL Normal 74-106 [facility] Comment on above: Performed By: #### M , M100.3000 #### [facility] [address] [place], [address] Potassium [Moles/Vol] 4.2 mmol/L Normal 3.5-5.1 [facility] Comment on above: Performed By: #### M , M100.3000 #### [facility] [address] [place], [address] Sodium [Moles/Vol] 143 mmol/L Normal 136-145 [facility] Comment on above: Performed By: #### M , M100.3000 #### [facility] [address] [place], [address] T PROT 5.9 g/dL Low 6.4-8.2 [facility] Comment on above: Performed By: #### M , M100.3000 #### [facility] [address] [place], [address] Urea nitrogen [Mass/Vol] 32 mg/dL High 7-18 [facility] Comment on above: Performed By: #### M , M100.3000 #### [facility] [address] [place], [address] Thyroid Stim Hormone (TSH)on 06-24-2024 TSH 1.400 uIU/mL Normal 0.358-3.740 [facility] Comment on above: Order Comment: 403.1 Performed By: #### L 501.9520 #### [facility] [address] [place], [address] Basic Metabolic Profile (BMP )on 05-12-2024 BUN/CRE 20.5 RATIO High 10-20 [facility] Comment on above: Order Comment: 403.1 Performed By: #### M , M100.3000 #### [facility] [address] [place], [address] CA,Total 9.1 mg/dL Normal 8.5-10.1 [facility] Comment on above: Order Comment: 403.1 Performed By: #### M , M100.3000 #### [facility] [address] [place], [address] Chloride [Moles/Vol] 110 mmol/L High 98-107 [facility] Comment on above: Order Comment: 403.1 Performed By: #### M , M100.3000 #### [facility] [address] [place], [address] CO2 [Moles/Vol] 27.0 mmol/L Normal 21.0-32.0 [facility] Comment on above: Order Comment: 403.1 Performed By: #### M , M100.3000 #### [facility] [address] [place], [address] Creatinine [Mass/Vol] 1.71 mg/dL High 0.55-1.02 [facility] Comment on above: Order Comment: 403.1 Result Comment: The validity of the calculated GFR GFRAA in patients over 70 years has not been determined. Clinical correlation is essential. Performed By: #### M , .2999 #### [facility] [address] [place], [address] EST GFR - AA 37 mL/min Low >60 [facility] Comment on above: Order Comment: 403.1 Result Comment: Afri can [place] GFR Calc Performed By: #### M , .2999 #### [facility] [address] [place], [address] GAP 6 Normal 5-15 [facility] Comment on above: Order Comment: 403.1 Performed By: #### M , .2999 #### [facility] [address] [place], [address] GFR/1.73 sq M.predicted among non-blacks MDRD (S/P/Bld) [Vol rate/Area] 30 mL/min/{1.73_m2} Low >60 [facility] Comment on above: Order Comment: 403.1 Result Comment: Non- GFR Calc Performed By: #### M , .2999 #### [facility] [address] [place], [address] Glucose [Mass/Vol] 94 mg/dL Normal 74-106 [facility] Comment on above: Order Comment: 403.1 Performed By: #### M , .3000 #### [facility] [address] [place], [address] Potassium [Moles/Vol] 4.7 mmol/L Normal 3.5-5.1 [facility] Comment on above: Order Comment: 403.1 Performed By: #### M , 00.3000 #### [facility] [address] [place], [address] Sodium [Moles/Vol] 143 mmol/L Normal 136-145 [facility] Comment on above: Order Comment: 403.1 Performed By: #### M , M100.3000 #### [facility] [address] [place], [address] Urea nitrogen [Mass/Vol] 35 mg/dL High 7-18 [facility] Comment on above: Order Comment: 403.1 Performed By: #### M , M100.3000 #### [facility] [address] [place], [address] Gentamicin,Once Daily Trough on 05-01-2024 GENT. OD TROUGH 0.9 ug/mL Normal <1.0 [facility] Comment on above: Order Comment: 404.1 0000 Result Comment: REFE RENCE RANGE OF GENTAMICIN ONCE DAILY TROUGH IS <1.0 ug/ml GENTAMICIN ONCE DAILY TROUGH >1.0 ug/ml IS TOXIC Performed By: #### M , M100.3000 #### [facility] [address] [place], [address] Basic Metabolic Profile (BMP )on 04-29-2024 BUN/CRE 22.6 RATIO High 10-20 [facility] Comment on above: Order Comment: 404.1 Performed By: #### M , M100.3000 #### [facility] [address] [place], [address] CA,Total 8.9 mg/dL Normal 8.5-10.1 [facility] Comment on above: Order Comment: 404.1 Performed By: #### M , M100.3000 #### [facility] [address] [place], [address] Chloride [Moles/Vol] 107 mmol/L Normal 98-107 [facility] Comment on above: Order Comment: 404.1 Performed By: #### M , M100.3000 #### [facility] [address] [place], [address] CO2 [Moles/Vol] 24.0 mmol/L Normal 21.0-32.0 [facility] Comment on above: Order Comment: 404.1 Performed By: #### M , 00.3000 #### [facility] [address] [place], [address] Creatinine [Mass/Vol] 1.46 mg/dL High 0.55-1.02 [facility] Comment on above: Order Comment: 404.1 Result Comment: The validity of the calculated GFR GFRAA in patients over 70 years has not been determined. Clinical correlation is essential. Performed By: #### M , .2999 #### [facility] [address] [place], [address] EST GFR - AA 44 mL/min Low >60 [facility] Comment on above: Order Comment: 404.1 Result Comment: Afri can [place] GFR Calc Performed By: #### M , .3000 #### [facility] [address] [place], [address] GAP 7 Normal 5-15 [facility] Comment on above: Order Comment: 404.1 Performed By: #### M , M1.3000 #### [facility] [address] [place], [address] GFR/1.73 sq M.predicted among non-blacks MDRD (S/P/Bld) [Vol rate/Area] 36 mL/min/{1.73_m2} Low >60 [facility] Comment on above: Order Comment: 404.1 Result Comment: Non- GFR Calc Performed By: #### M , .3000 #### [facility] [address] [place], [address] Glucose [Mass/Vol] 88 mg/dL Normal 74-106 [facility] Comment on above: Order Comment: 404.1 Performed By: #### M , M100.3000 #### [facility] [address] [place], [address] Potassium [Moles/Vol] 4.5 mmol/L Normal 3.5-5.1 [facility] Comment on above: Order Comment: 404.1 Performed By: #### M , M100.3000 #### [facility] [address] [place], [address] Sodium [Moles/Vol] 138 mmol/L Normal 136-145 [facility] Comment on above: Order Comment: 404.1 Performed By: #### M , .3000 #### [facility] [address] [place], [address] Urea nitrogen [Mass/Vol] 33 mg/dL High 7-18 [facility] Comment on above: Order Comment: 404.1 Performed By: #### M , M100.3000 #### [facility] [address] [place], [address] CBC[facility] Erythrocyte distribution width (RBC) [Ratio] 12.8 % Normal 11.6-14.6 [facility] Comment on above: Order Comment: 404.1 Performed By: #### M , M100.3000 #### [facility] [address] [place], [address] Hematocrit (Bld) [Volume fraction] 41.1 % Normal 37-47 [facility] Comment on above: Order Comment: 404.1 Performed By: #### M , M100.3000 #### [facility] [address] [place], [address] Hemoglobin (Bld) [Mass/Vol] 12.9 g/dL Normal 12.0-15.0 [facility] Comment on above: Order Comment: 404.1 Performed By: #### M , M100.3000 #### [facility] [address] [place], [address] MCH (RBC) [Entitic mass] 30.6 pg Normal 27.0-32.0 [facility] Comment on above: Order Comment: 404.1 Performed By: #### M , M100.3000 #### [facility] [address] [place], [address] MCHC (RBC) [Mass/Vol] 31.4 g/dL Low 32-36 [facility] Comment on above: Order Comment: 404.1 Performed By: #### M , M100.3000 #### [facility] [address] [place], [address] MCV (RBC) [Entitic vol] 97.6 fL Normal 81-99 [facility] Comment on above: Order Comment: 404.1 Performed By: #### M , M100.3000 #### [facility] [address] [place], [address] Platelet mean volume (Bld) [Entitic vol] 11.3 fL Normal 6.2-12.0 [facility] Comment on above: Order Comment: 404.1 Performed By: #### M , M100.3000 #### [facility] [address] [place], [address] Platelets (Bld) [#/Vol] 293 10*3/uL Normal 150-450 [facility] Comment on above: Order Comment: 404.1 Performed By: #### M , M100.3000 #### [facility] [address] [place], [address] RBC (Bld) [#/Vol] 4.21 10*6/uL Normal 4.2-5.4 [facility] Comment on above: Order Comment: 404.1 Performed By: #### M , M100.2999 #### [facility] [address] [place], [address] RDW SD 45.4 fl High 35.1-43.9 [facility] Comment on above: Order Comment: 404.1 Performed By: #### M , M100.3000 #### [facility] [address] [place], [address] WBC (Bld) [#/Vol] 7.5 10*3/uL Normal 4.4-11.0 [facility] Comment on above: Order Comment: 404.1 Performed By: #### M , .2999 #### [facility] [address] [place], [address] Gentamicin,Once Daily Trough on 04-25-2024 GENT. OD TROUGH 3.5 ug/mL Invalid Interpretation Code <1.0 [facility] Comment on above: Order Comment: 404.1 0000 Result Comment: REFE RENCE RANGE OF GENTAMICIN ONCE DAILY TROUGH IS <1.0 ug/ml GENTAMICIN ONCE DAILY TROUGH >1.0 ug/ml IS TOXIC Critical Result(s) Called at: 10:59:53 04/25/2024 by: Kathleen Ashley to [place]. Results read back by same. Gentamicin minimal values in excess of 2.0 ug/mL for longer than 10 days are potentially toxic. Peak Gentamicin therapeutic range: 4.0 - 8.0 ug/mL Performed By: #### L 501.8750 #### [facility] [address] [place], [address] Gentamicin, Once Daily Peako n 04-23-2024 GENT. OD PEAK 9.3 ug/mL Normal 6.0-15.0 [facility] Comment on above: Order Comment: 0000 Result Comment: GENT AMICIN < 6.0 ug/ml IS SUB-THERAPEUTIC >15.0 ug/ml IS TOXIC Performed By: #### M , M100.2999 #### [facility] [address] [place], [address] Gentamicin,Once Daily Trough on 04-23-2024 GENT. OD TROUGH 4.6 ug/mL Invalid Interpretation Code <1.0 [facility] Comment on above: Order Comment: 404.1 0000 Result Comment: SAMY SHAW RANGE OF GENTAMICIN ONCE DAILY TROUGH IS <1.0 ug/ml GENTAMICIN ONCE DAILY TROUGH >1.0 ug/ml IS TOXIC Critical Result(s) Called at: 10:41:47 04/23/2024 by: Kathleen Ashley to Chauncey Duarte. Results read back by same. Gentamicin minimal values in excess of 2.0 ug/mL for longer than 10 days are potentially toxic. Peak Gentamicin therapeutic range: 4.0 - 8.0 ug/mL Performed By: #### L [id number] #### [facility] [address] [place], [address] Basic Metabolic Profile (BMP )on 04-21-2024 BUN/CRE 21.8 RATIO High 10-20 [facility] Comment on above: Order Comment: 403-1 Performed By: #### L 100.0500, L500.2500 #### [facility] [address] [place], [address] CA,Total 8.9 mg/dL Normal 8.5-10.1 [facility] Comment on above: Order Comment: 403-1 Performed By: #### L 100.0500, L500.2500 #### [facility] [address] [place], [address] Chloride [Moles/Vol] 111 mmol/L High 98-107 [facility] Comment on above: Order Comment: 403-1 Performed By: #### L 100.0500, L500.2500 #### [facility] [address] [place], [address] CO2 [Moles/Vol] 24.0 mmol/L Normal 21.0-32.0 [facility] Comment on above: Order Comment: 403-1 Performed By: #### L 100.0500, L500.2500 #### [facility] [address] [place], [address] Creatinine [Mass/Vol] 1.19 mg/dL High 0.55-1.02 [facility] Comment on above: Order Comment: 403-1 Result Comment: The validity of the calculated GFR GFRAA in patients over 70 years has not been determined. Clinical correlation is essential. Performed By: #### L 100.0500, L500.2500 #### [facility] [address] [place], [address] EST GFR - AA 55 mL/min Low >60 [facility] Comment on above: Order Comment: 403-1 Result Comment: Afri can Honduran GFR Calc Performed By: #### L 100.0500, L500.2500 #### [facility] [address] [place], [address] GAP 7 Normal 5-15 [facility] Comment on above: Order Comment: 403-1 Performed By: #### L 100.0500, L500.2500 #### [facility] [address] [place], [address] GFR/1.73 sq M.predicted among non-blacks MDRD (S/P/Bld) [Vol rate/Area] 46 mL/min/{1.73_m2} Low >60 [facility] Comment on above: Order Comment: 403-1 Result Comment: Non- GFR Calc Performed By: #### L 100.0500, L500.2500 #### [facility] [address] [place], [address] Glucose [Mass/Vol] 96 mg/dL Normal 74-106 [facility] Comment on above: Order Comment: 403-1 Performed By: #### L 100.0500, L500.2500 #### [facility] [address] [place], [address] Potassium [Moles/Vol] 4.2 mmol/L Normal 3.5-5.1 [facility] Comment on above: Order Comment: 403-1 Performed By: #### L 100.0500, L500.2500 #### [facility] [address] [place], [address] Sodium [Moles/Vol] 142 mmol/L Normal 136-145 [facility] Comment on above: Order Comment: 403-1 Performed By: #### L 100.0500, L500.2500 #### [facility] [address] [place], [address] Urea nitrogen [Mass/Vol] 26 mg/dL High 7-18 [facility] Comment on above: Order Comment: 403-1 Performed By: #### L 100.0500, L500.2500 #### [facility] [address] [place], [address] CBC-Complete Blood Cnt No Di ffon 04-21-2024 Erythrocyte distribution width (RBC) [Ratio] 12.5 % Normal 11.6-14.6 [facility] Comment on above: Order Comment: 403-1 Performed By: #### L 100.0500, L500.2500 #### [facility] [address] [place], [address] Hematocrit (Bld) [Volume fraction] 35.3 % Low 37-47 [facility] Comment on above: Order Comment: 403-1 Performed By: #### L 100.0500, L500.2500 #### [facility] [address] [place], [address] Hemoglobin (Bld) [Mass/Vol] 11.2 g/dL Low 12.0-15.0 [facility] Comment on above: Order Comment: 403-1 Performed By: #### L 100.0500, L500.2500 #### [facility] [address] [place], [address] MCH (RBC) [Entitic mass] 30.4 pg Normal 27.0-32.0 [facility] Comment on above: Order Comment: 403-1 Performed By: #### L 100.0500, L500.2500 #### [facility] [address] [place], [address] MCHC (RBC) [Mass/Vol] 31.7 g/dL Low 32-36 [facility] Comment on above: Order Comment: 403-1 Performed By: #### L 100.0500, L500.2500 #### [facility] [address] [place], [address] MCV (RBC) [Entitic vol] 95.7 fL Normal 81-99 [facility] Comment on above: Order Comment: 403-1 Performed By: #### L 100.0500, L500.2500 #### [facility] [address] [place], [address] Platelet mean volume (Bld) [Entitic vol] 10.4 fL Normal 6.2-12.0 [facility] Comment on above: Order Comment: 403-1 Performed By: #### L 100.0500, L500.2500 #### [facility] [address] [place], [address] Platelets (Bld) [#/Vol] 296 10*3/uL Normal 150-450 [facility] Comment on above: Order Comment: 403-1 Performed By: #### L 100.0500, L500.2500 #### [facility] [address] [place], [address] RBC (Bld) [#/Vol] 3.69 10*6/uL Low 4.2-5.4 [facility] Comment on above: Order Comment: 403-1 Performed By: #### L 100.0500, L500.2500 #### [facility] [address] [place], [address] RDW SD 44.2 fl High 35.1-43.9 [facility] Comment on above: Order Comment: 403-1 Performed By: #### L 100.0500, L500.2500 #### [facility] [address], [address] WBC (Bld) [#/Vol] 6.6 10*3/uL Normal 4.4-11.0 [facility] Comment on above: Order Comment: 403-1 Performed By: #### L 100.0500, L500.2500 #### [facility] [address] [place], [address] Wound Cultureon 04-21-2024 WC LEFT Copy of report sent to Infection Control Printer [id number] 04/21/24 0832 [facility]. Escherichia coli Amount Growth 2+ Proteus mirabilis Amount Growth 2+ Meth. resistant Staph. aureus Amount Growth 3+ mecA Testing not performed Escherichia coli: REACTION Ampicillin Islt HAYLEY 4 S Ampicillin+Sulbac Islt HAYLEY <=2 S ceFAZolin Islt HAYLEY <=4 S Cefepime Islt HAYLEY <=0.12 S cefTRIAXone Islt HAYLEY <=0.25 S Ciprofloxacin Islt HAYLEY <=0.25 S Ertapenem Islt HAYLEY <=0.12 S B-Lactamase Extended Susc Islt NEG Gentamicin Islt HAYLEY <=1 S Imipenem Islt HAYLEY <=0.25 S levoFLOXacin Islt HAYLEY <=0.12 S Pip+Tazo Islt HAYLEY <=4 S Tobramycin Islt HAYLEY <=1 S TMP SMX Islt HAYLEY <=20 S Proteus mirabilis: REACTION Ampicillin Islt HAYLEY <=2 S Ampicillin+Sulbac Islt HAYLEY <=2 S ceFAZolin Islt HAYLEY <=4 S Cefepime Islt HAYLEY <=0.12 S cefTRIAXone Islt HAYLEY <=0.25 S Ciprofloxacin Islt HAYLEY <=0.25 S Ertapenem Islt HAYLEY <=0.12 S Gentamicin Islt HAYLEY <=1 S levoFLOXacin Islt HAYLEY <=0.12 S Pip+Tazo Islt HAYLEY <=4 S Tobramycin Islt HAYLEY <=1 S TMP SMX Islt HAYLEY <=20 S Meth. resistant Staph. aureus: REACTION cefOXitin Susc Islt POS Doxycycline Islt HAYLEY <=0.5 S Clindamycin.induced Susc Islt NEG Erythromycin Islt HAYLEY <=0.25 S Gentamicin Islt HAYLEY <=0.5 S Linezolid Islt HAYLEY 2 S Oxacillin Susc Islt >=4 R Tetracycline Islt HAYLEY <=1 S TMP SMX Islt HAYLEY <=10 S Vancomycin Islt HAYLEY 1 S Normal [facility] Comment on above: Performed By: #### M 100.1999, M100.3000 #### [facility] [address] [place], [address] Gram Stainon 04-19-2024 GS LEFT Gram Stain 2+ Gram positive cocci 1+ White Blood Cells No Epithelial cells Normal [facility] Comment on above: Performed By: #### M 100.1999, M100.3000 #### [facility] [address] [place], [address] Basic Metabolic Profile (BMP )on 04-07-2024 BUN/CRE 26.1 RATIO High 10-20 [facility] Comment on above: Performed By: #### L 100.0100, L500.2500 #### [facility] [address] [place], [address] CA,Total 8.8 mg/dL Normal 8.5-10.1 [facility] Comment on above: Performed By: #### L 100.0100, L500.2500 #### [facility] [address] [place], [address] Chloride [Moles/Vol] 109 mmol/L High 98-107 [facility] Comment on above: Performed By: #### L 100.0100, L500.2500 #### [facility] [address] [place], [address] CO2 [Moles/Vol] 26.0 mmol/L Normal 21.0-32.0 [facility] Comment on above: Performed By: #### L 100.0100, L500.2500 #### [facility] [address] [place], [address] Creatinine [Mass/Vol] 1.15 mg/dL High 0.55-1.02 [facility] Comment on above: Result Comment: The validity of the calculated GFR GFRAA in patients over 70 years has not been determined. Clinical correlation is essential. Performed By: #### L 100.0100, L500.2500 #### [facility] [address] [place], [address] EST GFR - AA 58 mL/min Low >60 [facility] Comment on above: Result Comment: Afri can [place]uran GFR Calc Performed By: #### L 100.0100, L500.2500 #### [facility] [address] [place], [address] GAP 6 Normal 5-15 [facility] Comment on above: Performed By: #### L 100.0100, L500.2500 #### [facility] [address] [place], [address] GFR/1.73 sq M.predicted among non-blacks MDRD (S/P/Bld) [Vol rate/Area] 48 mL/min/{1.73_m2} Low >60 [facility] Comment on above: Result Comment: Non- GFR Calc Performed By: #### L 100.0100, L500.2500 #### [facility] [address] [place], [address] Glucose [Mass/Vol] 85 mg/dL Normal 74-106 [facility] Comment on above: Performed By: #### L 100.0100, L500.2500 #### [facility] [address] [place], [address] Potassium [Moles/Vol] 4.3 mmol/L Normal 3.5-5.1 [facility] Comment on above: Performed By: #### L 100.0100, L500.2500 #### [facility] [address] [place], [address] Sodium [Moles/Vol] 141 mmol/L Normal 136-145 [facility] Comment on above: Performed By: #### L 100.0100, L500.2500 #### [facility] [address] [place], [address] Urea nitrogen [Mass/Vol] 30 mg/dL High 7-18 [facility] Comment on above: Performed By: #### L 100.0100, L500.2500 #### [facility] [address] [place], [address] CBC W/Diff, Automatedon 03-27-2023 Absolute Lymph 1.16 X10 3/uL Normal 0.83-4.51 [facility] Comment on above: Performed By: #### L 100.0100, L500.2500 #### [facility] [address] [place], [address] Absolute Neut 2.4 X10 3/uL Normal 2.0-7.7 [facility] Comment on above: Performed By: #### L 100.0100, L500.2500 #### [facility] [address] [place], [address] Basophils/100 WBC (Bld) 0.9 % Normal 0-1 [facility] Comment on above: Performed By: #### L 100.0100, L500.2500 #### [facility] [address] [place], [address] Eosinophils/100 WBC (Bld) 7.7 % High 0-5 [facility] Comment on above: Performed By: #### L 100.0100, L500.2500 #### [facility] [address] [place], [address] Erythrocyte distribution width (RBC) [Ratio] 13.6 % Normal 11.6-14.6 [facility] Comment on above: Performed By: #### L 100.0100, L500.2500 #### [facility] [address] [place], [address] Hematocrit (Bld) [Volume fraction] 36.7 % Low 37-47 [facility] Comment on above: Performed By: #### L 100.0100, L500.2500 #### [facility] [address] [place], [address] Hemoglobin (Bld) [Mass/Vol] 11.5 g/dL Low 12.0-15.0 [facility] Comment on above: Performed By: #### L 100.0100, L500.2500 #### [facility] [address] [place], [address] IG% 0.200 Normal 0.0-0.9 [facility] Comment on above: Result Comment: IG% - Immature Granulocytes (promyelocytes, myelocytes and metamyelocytes) > 1% indicates that a LEFT SHIFT is Present. Performed By: #### L 100.0100, L500.2500 #### [facility] [address] [place], [address] Lymphocytes/100 WBC (Bld) 24.8 % Normal 19-41 [facility] Comment on above: Performed By: #### L 100.0100, L500.2500 #### [facility] [address] [place], [address] MCH (RBC) [Entitic mass] 30.7 pg Normal 27.0-32.0 [facility] Comment on above: Performed By: #### L 100.0100, L500.2500 #### [facility] [address] [place], [address] MCHC (RBC) [Mass/Vol] 31.3 g/dL Low 32-36 [facility] Comment on above: Performed By: #### L 100.0100, L500.2500 #### [facility] [address] [place], [address] MCV (RBC) [Entitic vol] 97.9 fL Normal 81-99 [facility] Comment on above: Performed By: #### L 100.0100, L500.2500 #### [facility] [address] [place], [address] Monocytes/100 WBC (Bld) 16.2 % High 0-10 [facility] Comment on above: Performed By: #### L 100.0100, L500.2500 #### [facility] [address] [place], [address] Neutrophils/100 WBC (Bld) 50.2 % Normal 47-70 [facility] Comment on above: Performed By: #### L 100.0100, L500.2500 #### [facility] [address] [place], [address] Nucleated RBC (Bld) [#/Vol] 0 10*3/uL Normal 0-5 [facility] Comment on above: Performed By: #### L 100.0100, L500.2500 #### [facility] [address] [place], [address] Platelet mean volume (Bld) [Entitic vol] 11.7 fL Normal 6.2-12.0 [facility] Comment on above: Performed By: #### L 100.0100, L500.2500 #### [facility] [address] [place], [address] Platelets (Bld) [#/Vol] 156 10*3/uL Normal 150-450 [facility] Comment on above: Performed By: #### L 100.0100, L500.2500 #### [facility] [address] [place], [address] RBC (Bld) [#/Vol] 3.75 10*6/uL Low 4.2-5.4 [facility] Comment on above: Performed By: #### L 100.0100, L500.2500 #### [facility] [address] [place], [address] RDW SD 48.6 fl High 35.1-43.9 [facility] Comment on above: Performed By: #### L 100.0100, L500.2500 #### [facility] [address] [place], [address] WBC (Bld) [#/Vol] 4.7 10*3/uL Normal 4.4-11.0 [facility] Comment on above: Performed By: #### L 100.0100, L500.2500 #### [facility] [address] [place], [address] Basophil percentageOrdered B y: Ifrah Baker on 11-05-2023 Bilirubin [Mass/Vol] 0.60 mg/dL 0.20-1.00 [facility] Comment on above: For patients on eltr ombopag therapy, use of Dimension [place] TBIL is not recommended. Chloride [Moles/Vol] 110 mmol/L 98-107 [facility] Cholesterol [Mass/Vol] 122 mg/dL <200 [facility] Comment on above: <200 mg/dL Desirable 200-240 mg/dL Borderline >240 mg/dL High Risk Glucose [Mass/Vol] 88 mg/dL 74-106 [facility] Hemoglobin (Bld) [Mass/Vol] 11.7 g/dL 12.0-15.0 [facility] Potassium [Moles/Vol] 4.4 mmol/L 3.5-5.1 [facility] Protein [Mass/Vol] 6.3 g/dL 6.4-8.2 [facility] Sodium [Moles/Vol] 143 mmol/L 136-145 [facility] Triglyceride [Mass/Vol] 60 mg/dL <199 [facility] Comment on above: The drugs N-Acetylcy steine and Metamizole may falsely depress this assay.Serum Triglycerides Reference Interval Normal <150 mg/dL Borderline high 150 - 199 mg/dL High 200 - 499 mg/dL Very High > or = 500 mg/dL WBC (Bld) [#/Vol] 4.6 10*3/uL 4.4-11.0 [facility] Determination of erythrocyte mean corpuscular volume (MCV)Ordered By: Ifrah Baker on 11-05-2023 MCV (RBC) [Entitic vol] 98.7 fL 81-99 [facility] Erythrocyte distribution wid th ratioOrdered By: [facility] Erythrocyte distribution width (RBC) [Ratio] 13.1 % 11.6-14.6 [facility] Erythrocyte distribution wid th standard deviationOrdered By: [facility] on 11-05-2023 Erythrocyte distribution width (RBC) [Entitic vol] 47.3 fL 35.1-43.9 [facility] Hematocrit Auto (Bld) [Volum e fraction]Ordered By: Ifrahmiles Baker on 11-05-2023 Hematocrit (Bld) [Volume fraction] 37.7 % 37-47 [facility] - Chemistry and C hemistry - challengeOrdered By: Ifrah Baker on 11-05-2023 Albumin/Globulin [Mass ratio] 1.1 {ratio} 0.9-2.4 [facility] ALP [Catalytic activity/Vol] 113 U/L 45-117 [facility] ALT [Catalytic activity/Vol] 24 U/L 13-56 [facility] Cholesterol in HDL [Mass/Vol] 54 mg/dL >40 [facility] Comment on above: The drugs N-Acetylcy steine and Metamizole may falsely depress this assay. Reference Range HDL <40 mg/dL Low HDL Cholesterol HDL >or= 60 mg/dL High HDL Cholesterol Cholesterol in LDL [Mass/Vol] 56 mg/dL 0-130 [facility] CO2 [Moles/Vol] 24.0 mmol/L 21.0-32.0 [facility] Globulin (S) [Mass/Vol] 3.0 g/dL 2.2-4.2 [facility] Urea nitrogen/Creatinine [Mass ratio] 25.2 mg/mg 10-20 [facility] - Hematology and Cell countsOrdered By: Ifrah Baker on 11-05-2023 MCH (RBC) [Entitic mass] 30.6 pg 27.0-32.0 [facility] MCHC (RBC) [Mass/Vol] 31.0 g/dL 32-36 [facility] Platelet mean volume (Bld) [Entitic vol] 11.2 fL 6.2-12.0 [facility] Platelets (Bld) [#/Vol] 181 10*3/uL 150-450 [facility] No Panel InformationOrdered By: Ifrah Baker on 11-05-2023 Estimated GFR (MDRD) Amer 58 mL/min >60 [facility] Comment on above: GFR Calc Estimated GFR (MDRD) Non-Af Amer 48 mL/min >60 [facility] Comment on above: Non- GFR Calc Vitamin D 25-Hydroxy 43.3 ng/mL [facility] Comment on above: Vitamin D 25(OH) Sta tus Range Deficiency <20 ng/mL (50nmol/L) Insufficiency 20 - 30 ng/mL (50 - 75 nmol/L) Sufficiency 30 - 100 ng/mL (75 - 250 nmol/L) Toxicity >100 ng/mL (>250 nmol/L) VLDL Cholesterol 12 mg/dL 5-40 [facility] RBC Auto (Bld) [#/Vol]Ordere d By: Ifrah Baker on 11-05-2023 RBC (Bld) [#/Vol] 3.82 10*6/uL 4.2-5.4 [facility] Serum or plasma calcium enrique urement (mass/volume)Ordered By: Ifrah Baker on 11-05-2023 Calcium [Mass/Vol] 8.8 mg/dL 8.5-10.1 [facility] Serum or plasma creatinine m easurement (mass/volume)Ordered By: Ifrah Baker on 11-05-2023 Creatinine [Mass/Vol] 1.15 mg/dL 0.55-1.02 [facility] Comment on above: The validity of the calculated GFR & GFRAA in patients over 70 years has not been determined. Clinical correlation is essential. Serum or plasma thyroid stim ulating hormone (TSH) measurement (units/volume)Ordered By: Ifrah Baker on 11-05-2023 TSH Qn 3.71 uIU/mL 0.358-3.74 [facility] Serum or plasma urea nitroge n measurement (mass/volume)Ordered By: Ifrah Baker on 11-05-2023 Urea nitrogen [Mass/Vol] 29 mg/dL 7-18 [facility] Thin prep Papanicolaou smear with manual screeningOrdered By: [facility] Samuel on 11-05-2023 Thin prep Papanicolaou smear with manual screening 3.3 g/dL 3.2-5.0 [facility] Thin prep Papanicolaou smear with manual screening 19 U/L 15-37 [facility] Thin prep Papanicolaou smear with manual screening 9 5-15 [facility] Whole blood hemoglobin A1c/t otal hemoglobin ratio (mass fraction)Ordered By: Ifrahmiles Baker on 11-05-2023 HbA1c (Bld) [Mass fraction] 5.5 % 3.8-5.6 [facility] Comment on above: Normal < 5.7 % Predi abetic 5.7 - 6.4 % Diabetic >or= 6.5 % Please note range changes. Serum or plasma uric acid me asurement (mass/volume)Ordered By: Ifrah Baker on 06-20-2023 Urate [Mass/Vol] 5.3 mg/dL 2.6-6.0 [facility] Comment on above: The drugs N-Acetylcy steine and Metamizole may falsely depress this assay. Absolute lymphocyte countOrd ered By: Edwin Nath on 05-29-2023 Lymphocytes Auto (Unsp spec) [#/Vol] 1.25 10*3/uL 0.83-4.51 [facility] Basophil percentageOrdered B y: Edwin Nath on 05-29-2023 Basophils/100 WBC (Bld) 0.7 % 0-1 [facility] Chloride [Moles/Vol] 108 mmol/L 98-107 [facility] Eosinophils/100 WBC (Bld) 4.2 % 0-5 [facility] Glucose [Mass/Vol] 102 mg/dL 74-106 [facility] Comment on above: Fasting Glucose resu lt from 100 to 125 mg/dL suggests IMPAIRED HOMEOSTASIS per A.D.A. criteria. Neutrophils (Bld) [#/Vol] 3.6 10*3/uL 2.0-7.7 [facility] Neutrophils/100 WBC (Bld) 62.6 % 47-70 [facility] Potassium [Moles/Vol] 4.2 mmol/L 3.5-5.1 [facility] Sodium [Moles/Vol] 140 mmol/L 136-145 [facility] WBC (Bld) [#/Vol] 5.8 10*3/uL 4.4-11.0 [facility] Blood erythrocytes count (nu mber/volume)Ordered By: Edwin Nath on 05-29-2023 RBC (Bld) [#/Vol] 4.05 10*6/uL 4.2-5.4 [facility] Blood hemoglobin measurement (mass/volume)Ordered By: Edwin Nath on 05-29-2023 Hemoglobin (Bld) [Mass/Vol] 12.4 g/dL 12.0-15.0 [facility] Blood lymphocytes/100 leukoc ytesOrdered By: Edwin Nath on 05-29-2023 Lymphocytes/100 WBC (Bld) 21.7 % 19-41 [facility] Blood monocytes/100 leukocyt esOrdered By: Edwin Nath on 05-29-2023 Monocytes/100 WBC (Bld) 10.6 % 0-10 [facility] Blood platelet mean volumeOr dered By: Edwin Nath on 05-29-2023 Platelet mean volume (Bld) [Entitic vol] 10.6 fL 6.2-12.0 [facility] Determination of erythrocyte mean corpuscular volume (MCV)Ordered By: Edwin Nath on 05-29-2023 MCV (RBC) [Entitic vol] 96.3 fL 81-99 [facility] Hematocrit Auto (Bld) [Volum e fraction]Ordered By: Edwin Nath on 05-29-2023 Hematocrit (Bld) [Volume fraction] 39.0 % 37-47 [facility] - Chemistry and C hemistry - challengeOrdered By: Edwin Nath on 10-03-2023 CO2 [Moles/Vol] 29.0 mmol/L 21.0-32.0 [facility] Urea nitrogen/Creatinine [Mass ratio] 28.0 mg/mg 10-20 [facility] - Hematology and Cell countsOrdered By: Edwin Nath on 05-29-2023 Erythrocyte distribution width (RBC) [Entitic vol] 47.4 fL 35.1-43.9 [facility] Erythrocyte distribution width (RBC) [Ratio] 13.2 % 11.6-14.6 [facility] Immature granulocytes/100 WBC (Bld) 0.200 % 0.0-0.9 [facility] Comment on above: IG% - Immature Granu locytes (promyelocytes, myelocytes and metamyelocytes) > 1% indicates that a LEFT SHIFT is Present. MCH (RBC) [Entitic mass] 30.6 pg 27.0-32.0 [facility] Nucleated RBC/100 WBC (Bld) [Ratio] 0 % 0-5 [facility] MCHC Auto (RBC) [Mass/Vol]Or dered By: Edwin Nath on 05-29-2023 MCHC (RBC) [Mass/Vol] 31.8 g/dL 32-36 [facility] No Panel InformationOrdered By: Edwin Nath on 05-29-2023 Estimated Creatinine Clearance Calc 37.09 ml/min [facility] Estimated GFR (MDRD) Amer 56 mL/min >60 [facility] Comment on above: GFR Calc Estimated GFR (MDRD) Non-Af Amer 46 mL/min >60 [facility] Comment on above: Non- GFR Calc Platelets bldOrdered By: Trent Nath on 05-29-2023 Platelets (Bld) [#/Vol] 205 10*3/uL 150-450 [facility] Serum or plasma calcium enrique urement (mass/volume)Ordered By: Edwin Nath on 05-29-2023 Calcium [Mass/Vol] 8.6 mg/dL 8.5-10.1 [facility] Serum or plasma creatinine m easurement (mass/volume)Ordered By: Edwin Nath on 05-29-2023 Creatinine [Mass/Vol] 1.18 mg/dL 0.55-1.02 [facility] Comment on above: The validity of the calculated GFR & GFRAA in patients over 70 years has not been determined. Clinical correlation is essential. Serum or plasma urea nitroge n measurement (mass/volume)Ordered By: Edwin Nath on 05-29-2023 Urea nitrogen [Mass/Vol] 33 mg/dL 7-18 [facility] Thin prep Papanicolaou smear with manual screeningOrdered By: Edwin Nath on 05-29-2023 Thin prep Papanicolaou smear with manual screening 3 5-15 [facility] Absolute lymphocyte countOrd ered By: Dominguez Albert on 03-01-2023 Lymphocytes Auto (Unsp spec) [#/Vol] 1.28 10*3/uL 0.83-4.51 [facility] Basophil percentageOrdered B y: Dominguez Albert on 03-01-2023 Potassium [Moles/Vol] 4.2 mmol/L 3.5-5.1 [facility] Basophils/100 WBC (Bld) 0.5 % 0-1 [facility] Chloride [Moles/Vol] 109 mmol/L 98-107 [facility] Eosinophils/100 WBC (Bld) 5.3 % 0-5 [facility] Glucose [Mass/Vol] 96 mg/dL 74-106 [facility] Neutrophils (Bld) [#/Vol] 3.8 10*3/uL 2.0-7.7 [facility] Neutrophils/100 WBC (Bld) 61.5 % 47-70 [facility] Sodium [Moles/Vol] 140 mmol/L 136-145 [facility] WBC (Bld) [#/Vol] 6.2 10*3/uL 4.4-11.0 [facility] Blood erythrocytes count (nu mber/volume)Ordered By: Dominguez Albert on 03-01-2023 RBC (Bld) [#/Vol] 3.54 10*6/uL 4.2-5.4 [facility] Blood hemoglobin measurement (mass/volume)Ordered By: Dominguez Albert on 03-01-2023 Hemoglobin (Bld) [Mass/Vol] 11.2 g/dL 12.0-15.0 [facility] Blood lymphocytes/100 leukoc ytesOrdered By: Dominguez Albert on 03-01-2023 Lymphocytes/100 WBC (Bld) 20.6 % 19-41 [facility] Blood monocytes/100 leukocyt esOrdered By: Dominguez Albert on 03-01-2023 Monocytes/100 WBC (Bld) 11.6 % 0-10 [facility] Blood platelet mean volumeOr dered By: Dominguez Albert on 03-01-2023 Platelet mean volume (Bld) [Entitic vol] 11.1 fL 6.2-12.0 [facility] Determination of erythrocyte mean corpuscular volume (MCV)Ordered By: Dominguez Albert on 03-01-2023 MCV (RBC) [Entitic vol] 102.8 fL 81-99 [facility] Hematocrit Auto (Bld) [Volum e fraction]Ordered By: Dominguez Albert on 03-01-2023 Hematocrit (Bld) [Volume fraction] 36.4 % 37-47 [facility] Laboratory - Chemistry and C hemistry - challengeOrdered By: Dominguez Albert on 03-01-2023 CO2 [Moles/Vol] 27.0 mmol/L 21.0-32.0 [facility] Urea nitrogen/Creatinine [Mass ratio] 29.5 mg/mg 10-20 [facility] Laboratory - Hematology and Cell countsOrdered By: Dominguez Albert on 03-01-2023 Erythrocyte distribution width (RBC) [Entitic vol] 47.9 fL 35.1-43.9 [facility] Erythrocyte distribution width (RBC) [Ratio] 12.5 % 11.6-14.6 [facility] Immature granulocytes/100 WBC (Bld) 0.500 % 0.0-0.9 [facility] Comment on above: IG% - Immature Granu locytes (promyelocytes, myelocytes and metamyelocytes) > 1% indicates that a LEFT SHIFT is Present. MCH (RBC) [Entitic mass] 31.6 pg 27.0-32.0 [facility] Nucleated RBC/100 WBC (Bld) [Ratio] 0 % 0-5 [facility] MCHC Auto (RBC) [Mass/Vol]Or dered By: Dominguez Albert on 03-01-2023 MCHC (RBC) [Mass/Vol] 30.8 g/dL 32-36 [facility] No Panel InformationOrdered By: Dominguez Albert on 03-01-2023 Troponin I High Sensitivity 5 pg/mL 3.0-54.0 [facility] Comment on above: Please Note: [place] t Units and Gender Specific Reference Ranges. For more information see Policy Stat Procedure [place] High Sensitivity Troponin (TNIH) and attachments. D-Dimer Quantitative (PE/DVT) 0.97 FEU/ug/m 0.27-0.49 [facility] Comment on above: CRITICAL VALUE VERIF IED. CALLED TO ANTHONY SO RN [id number] Enio Arvizu.RESULTS READ BACK BY SAME . D-Dimer ELEVATED (>0.49): Additional studies and clinicalassessments are indicated to conclude diagnosis of:Deep Vein Thrombosis (DVT) or Pulmonary Embolism (PE) Estimated Creatinine Clearance Calc 33.93 ml/min [facility] Estimated GFR (MDRD) Amer 51 mL/min >60 [facility] Comment on above: GFR Calc Estimated GFR (MDRD) Non-Af Amer 42 mL/min >60 [facility] Comment on above: Non- GFR Calc Platelets bldOrdered By: Goran Albert on 03-01-2023 Platelets (Bld) [#/Vol] 163 10*3/uL 150-450 [facility] Serum or plasma calcium enrique urement (mass/volume)Ordered By: Dominguez Albert on 03-01-2023 Calcium [Mass/Vol] 8.8 mg/dL 8.5-10.1 [facility] Serum or plasma creatinine m easurement (mass/volume)Ordered By: Dominguez Albert on 03-01-2023 Creatinine [Mass/Vol] 1.29 mg/dL 0.55-1.02 [facility] Comment on above: The validity of the calculated GFR & GFRAA in patients over 70 years has not been determined. Clinical correlation is essential. Serum or plasma urea nitroge n measurement (mass/volume)Ordered By: Dominguez Albert on 03-01-2023 Urea nitrogen [Mass/Vol] 38 mg/dL 7-18 [facility] Thin prep Papanicolaou smear with manual screeningOrdered By: Dominguez Albert on 03-01-2023 Thin prep Papanicolaou smear with manual screening 4 5-15 [facility] Absolute lymphocyte countOrd ered By: Ifrah Baker on 01-01-2023 Lymphocytes Auto (Unsp spec) [#/Vol] 1.07 10*3/uL 0.83-4.51 [facility] Basophil percentageOrdered B y: Ifrah Baker on 01-01-2023 Basophils/100 WBC (Bld) 0.4 % 0-1 [facility] Chloride [Moles/Vol] 111 mmol/L 98-107 [facility] Eosinophils/100 WBC (Bld) 6.8 % 0-5 [facility] Glucose [Mass/Vol] 77 mg/dL 74-106 [facility] Neutrophils (Bld) [#/Vol] 4.8 10*3/uL 2.0-7.7 [facility] Neutrophils/100 WBC (Bld) 69.2 % 47-70 [facility] Potassium [Moles/Vol] 4.6 mmol/L 3.5-5.1 [facility] Sodium [Moles/Vol] 143 mmol/L 136-145 [facility] WBC (Bld) [#/Vol] 6.9 10*3/uL 4.4-11.0 [facility] Blood erythrocytes count (nu mber/volume)Ordered By: Ifrah Baker on 01-01-2023 RBC (Bld) [#/Vol] 3.55 10*6/uL 4.2-5.4 [facility] Blood hemoglobin measurement (mass/volume)Ordered By: Ifrah Baker on 01-01-2023 Hemoglobin (Bld) [Mass/Vol] 11.2 g/dL 12.0-15.0 [facility] Blood lymphocytes/100 leukoc ytesOrdered By: Ifrah Baker on 01-01-2023 Lymphocytes/100 WBC (Bld) 15.4 % 19-41 [facility] Blood monocytes/100 leukocyt esOrdered By: Ifrah Baker on 01-01-2023 Monocytes/100 WBC (Bld) 7.9 % 0-10 [facility] Blood platelet mean volumeOr dered By: Ifrah Baker on 01-01-2023 Platelet mean volume (Bld) [Entitic vol] 11.3 fL 6.2-12.0 [facility] Determination of erythrocyte mean corpuscular volume (MCV)Ordered By: Ifrah Baker on 01-01-2023 MCV (RBC) [Entitic vol] 98.9 fL 81-99 [facility] Hematocrit Auto (Bld) [Volum e fraction]Ordered By: Ifrah Baker on 01-01-2023 Hematocrit (Bld) [Volume fraction] 35.1 % 37-47 [facility] Laboratory - Chemistry and C hemistry - challengeOrdered By: Ifrah Baker on 01-01-2023 CO2 [Moles/Vol] 25.0 mmol/L 21.0-32.0 [facility] Urea nitrogen/Creatinine [Mass ratio] 29.5 mg/mg 10-20 [facility] Laboratory - Hematology and Cell countsOrdered By: Ifrah Baker on 01-01-2023 Erythrocyte distribution width (RBC) [Entitic vol] 50.4 fL 35.1-43.9 [facility] Erythrocyte distribution width (RBC) [Ratio] 13.8 % 11.6-14.6 [facility] Immature granulocytes/100 WBC (Bld) 0.300 % 0.0-0.9 [facility] Comment on above: IG% - Immature Granu locytes (promyelocytes, myelocytes and metamyelocytes) > 1% indicates that a LEFT SHIFT is Present. MCH (RBC) [Entitic mass] 31.5 pg 27.0-32.0 [facility] Nucleated RBC/100 WBC (Bld) [Ratio] 0 % 0-5 [facility] MCHC Auto (RBC) [Mass/Vol]Or dered By: Ifrah Baker on 01-01-2023 MCHC (RBC) [Mass/Vol] 31.9 g/dL 32-36 [facility] No Panel InformationOrdered By: Ifrah Baker on 01-01-2023 Estimated GFR (MDRD) Amer 64 mL/min >60 [facility] Comment on above: GFR Calc Estimated GFR (MDRD) Non-Af Amer 53 mL/min >60 [facility] Comment on above: Non- GFR Calc Platelets bldOrdered By: Brandy Baker on 01-01-2023 Platelets (Bld) [#/Vol] 205 10*3/uL 150-450 [facility] Serum or plasma calcium enrique urement (mass/volume)Ordered By: Ifrah Baker on 01-01-2023 Calcium [Mass/Vol] 9.0 mg/dL 8.5-10.1 [facility] Serum or plasma creatinine m easurement (mass/volume)Ordered By: Ifrah Baker on 01-01-2023 Creatinine [Mass/Vol] 1.05 mg/dL 0.55-1.02 [facility] Comment on above: The validity of the calculated GFR & GFRAA in patients over 70 years has not been determined. Clinical correlation is essential. Serum or plasma urea nitroge n measurement (mass/volume)Ordered By: Ifrah Baker on 01-01-2023 Urea nitrogen [Mass/Vol] 31 mg/dL 7-18 [facility] Thin prep Papanicolaou smear with manual screeningOrdered By: Ifrah Baker on 01-01-2023 Thin prep Papanicolaou smear with manual screening 7 5-15 [facility] CNPNon 10-09-2022 CNPN Telephone (MARIWS) LETTY LEON ([id number]) 1940 F Date Time Provider Department 10/09/22 KERI EL During your visit today, we recorded the following information about you: FAN Osborn 10/09/2022 2:04 PM Signed Patient's son was calling in to see if had filled out paperwork for patient to be admitted to [facility]. The retirement was supposed to fax over paperwork to office on 10/06/22. Patient has a deadline of due to medicare regulation. Please review and advise. FAN Osborn October 09, 2022 2:04 PM Gavino Melendez MD 10/10/2022 9:34 AM Signed Done; see 10/05 telephone note MD Tanya Fraser Ma 10/10/2022 9:59 AM Signed Paperwork re faxed. Tanya Rojas Ma Allergies As of Date: 10/09/2022 Noted Allergy Reaction AMOXICILLIN 06/27/2005 4 - Hives DURICEF (CEFADROXIL) 06/27/2005 4 - Hives FLOXIN (OFLOXACIN) 06/27/2005 4 - Hives GRASS POLLEN 06/27/2005 PINE NEEDLE OIL 06/27/2005 Date Reviewed: 09/07/2022 Reviewed by: Emelia Rodriguez Ma - Fully Assessed Reason for Visit: Orders [681] Prescriptions as of 10/10/2022 - busPIRone (BUSPAR) 10 mg tablet Take 1 tablet by mouth twice daily. - atorvastatin (LIPITOR) 20 mg tablet Take 1 tablet by mouth once daily. - citalopram (CELEXA) 20 mg tablet Take 1 tablet by mouth once daily. - levothyroxine (LEVOXYL) 100 mcg tablet Take 1 tablet by mouth once daily. Take on empty stomach. 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] 08/03/2005 02/22/2009 SEROMA, POST OP [[id number]] 09/19/2005 02/22/2009 Essential hypertension [I10] 07/23/2006 Syncope and collapse [R55] 02/01/2007 05/30/2016 Hyperlipidemia [E78.5] 11/24/2021 Malignant neoplasm of breast (female), unspecif* 09/01/2019 UTEROVAG PROLAPS-INCOMPL [N81.2] 05/15/2008 06/08/2008 Vitamin D deficiency [E55.9] 10/22/2008 Nontraumatic rupture of tendons of biceps (long*12/09/2008 Asymptomatic varicose veins [I83.90] 12/09/2008 09/01/2019 Low back pain [M54.50] 01/18/2010 09/01/2019 Neuritis of lower extremity [G57.90] 10/25/2010 Anxiety and depression [F41.9, F32.A] 05/30/2011 Osteopenia [M85.80] Blood glucose elevated [R73.9] 10/27/2011 09/01/2019 Lumbar stenosis [M48.061] 10/26/2011 Degenerative spondylolisthesis [M43.10] 10/26/2011 Hypokalemia [E87.6] 10/28/2011 09/01/2019 Multinodular goiter [E04.2] 02/27/2012 05/22/2012 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] 04/30/2012 09/01/2019 Hypothyroidism, iatrogenic [E03.2] 04/16/2012 Arthritis of knee [M17.10] 05/01/2014 09/01/2019 Chronic pain of both knees [M25.561, M25.562, G*06/27/2016 09/01/2019 Bilateral primary osteoarthritis of knee [M17.0]06/27/2016 Malignant neoplasm of female breast (HCC) [C50.*07/10/2016 09/01/2019 HLD (hyperlipidemia) [E78.5] 08/01/2016 Stage 3a chronic kidney disease (HCC) [N18.31] 08/01/2016 Aftercare following right knee joint replacemen*08/16/2016 09/01/2019 H/O amputation of lesser toe, left (HCC) [Z89.4*09/01/2019 History of breast cancer [Z85.3] 09/01/2019 Weight loss [R63.4] 11/03/2020 Dementia without behavioral disturbance (HCC) [*05/30/2021 Hypertensive kidney disease with stage 3a chron*11/24/2021 Encounter Status:Closed by TANYA ROJAS MA on 10/10/22 [facility] CNPNon 10-05-2022 CNPN Telephone (FAMPWS) LETTY LEON ([id number]) 1940 F Date Time Provider Department 10/05/22 GAVINO MELENDEZ During your visit today, we recorded the following information about you: Tanya Rojas Ma 10/05/2022 4:54 PM Signed Type of letter/form/fax request - [facility] Admissions Form Form received from fax on 1 floor and placed on MD desk (Dr. Melendez) for completion. Completed form needs to be faxed to [facility]. Route to CT when form completed for processing Gavino Melendez MD 10/05/2022 5:35 PM Signed Form done; may send with last note, med list MD Emelia Fraser Ma 10/06/2022 8:29 AM Signed Last OV note printed and paperwork completed. This has been faxed to [phone]. Emelia Rodriguez Ma Allergies As of Date: 10/05/2022 Noted Allergy Reaction AMOXICILLIN 06/27/2005 4 - Hives DURICEF (CEFADROXIL) 06/27/2005 4 - Hives FLOXIN (OFLOXACIN) 06/27/2005 4 - Hives GRASS POLLEN 06/27/2005 PINE NEEDLE OIL 06/27/2005 Date Reviewed: 09/07/2022 Reviewed by: Emelia Rodriguez Ma - Fully Assessed Reason for Visit: Forms [533] Cmt: half-way admissions form for [facility] Prescriptions as of 10/06/2022 - busPIRone (BUSPAR) 10 mg tablet Take 1 tablet by mouth twice daily. - atorvastatin (LIPITOR) 20 mg tablet Take 1 tablet by mouth once daily. - citalopram (CELEXA) 20 mg tablet Take 1 tablet by mouth once daily. - levothyroxine (LEVOXYL) 100 mcg tablet Take 1 tablet by mouth once daily. Take on empty stomach. 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 Problem List As Of Date 10/05/2022 Noted Resolved DIFFUS CYSTIC MASTOPATHY [N60.19] 07/23/2006 SPASM OF MUSCLE [M62.838] 07/23/2006 GENITAL PROLAPSE [618] 07/23/2006 SPONDYLOS NOS W/O MYELOP [M47.9] Morbid obesity (HCC) [E66.01] 09/01/2019 Esophageal reflux [K21.9] 09/01/2019 MILTON HYPERT HRT/RENAL DIS [404.1] 07/23/2006 UNSP ABNORMAL MAMMOGRAM (Right) [R92.8] 07/25/2005 07/23/2006 BREAST CANCER UPPER OUTER (Right) [C50.419] 08/03/2005 02/22/2009 SEROMA, POST OP [[id number]] 09/19/2005 02/22/2009 Essential hypertension [I10] 07/23/2006 Syncope and collapse [R55] 02/01/2007 05/30/2016 Hyperlipidemia [E78.5] 11/24/2021 Malignant neoplasm of breast (female), unspecif* 09/01/2019 UTEROVAG PROLAPS-INCOMPL [N81.2] 05/15/2008 06/08/2008 Vitamin D deficiency [E55.9] 10/22/2008 Nontraumatic rupture of tendons of biceps (long*12/09/2008 Asymptomatic varicose veins [I83.90] 12/09/2008 09/01/2019 Low back pain [M54.50] 01/18/2010 09/01/2019 Neuritis of lower extremity [G57.90] 10/25/2010 Anxiety and depression [F41.9, F32.A] 05/30/2011 Osteopenia [M85.80] Blood glucose elevated [R73.9] 10/27/2011 09/01/2019 Lumbar stenosis [M48.061] 10/26/2011 Degenerative spondylolisthesis [M43.10] 10/26/2011 Hypokalemia [E87.6] 10/28/2011 09/01/2019 Multinodular goiter [E04.2] 02/27/2012 05/22/2012 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] 04/30/2012 09/01/2019 Hypothyroidism, iatrogenic [E03.2] 04/16/2012 Arthritis of knee [M17.10] 05/01/2014 09/01/2019 Chronic pain of both knees [M25.561, M25.562, G*06/27/2016 09/01/2019 Bilateral primary osteoarthritis of knee [M17.0]06/27/2016 Malignant neoplasm of female breast (HCC) [C50.*07/10/2016 09/01/2019 HLD (hyperlipidemia) [E78.5] 08/01/2016 Stage 3a chronic kidney disease (HCC) [N18.31] 08/01/2016 Aftercare following right knee joint replacemen*08/16/2016 09/01/2019 H/O amputation of lesser toe, left (HCC) [Z89.4*09/01/2019 History of breast cancer [Z85.3] 09/01/2019 Weight loss [R63.4] 11/03/2020 Dementia without behavioral disturbance (HCC) [*05/30/2021 Hypertensive kidney disease with stage 3a chron*11/24/2021 Encounter Status:Closed by EMELIA RODRIGUEZ MA on 10/06/22 [facility] Itzel 10-04-2022 BR[place]NA[place] Telephone (FAMPWS) LETTY LEON ([id number]) 1940 F Date Time Provider Department 10/04/22 GAVINO MELENDEZ During your visit today, we recorded the following information about you: Anahi Moran RN 10/04/2022 10:13 AM Signed Patient's son calls and states that patient has been approved for medicaid. They have until 10/13/2022 to have her placed in a retirement. Son states that he had taken patient to [facility] to help get patient in the retirement per recommendations from [facility]. [facility] told son that he needed to contact PCP to get patient placed in retirement. Patient is requiring more help then family can give. Patient is getting more confused. Son asking if provider can help patient get into [facility]? Please give son a call back. Please review and advise, ROMA Swanson MD 10/05/2022 8:39 AM Signed I can give him an order for admission to retirement; he may need to contact the retirement and have them send the required paperwork here. MD Tanya Fraser Ma 10/05/2022 10:47 AM Signed Nima notified. He will contact retirement and have them send over paperwork. Tanya Rojas Ma Allergies As of Date: 10/04/2022 Noted Allergy Reaction AMOXICILLIN 06/27/2005 4 - Hives DURICEF (CEFADROXIL) 06/27/2005 4 - Hives FLOXIN (OFLOXACIN) 06/27/2005 4 - Hives GRASS POLLEN 06/27/2005 PINE NEEDLE OIL 06/27/2005 Date Reviewed: 09/07/2022 Reviewed by: Emelia Rodriguez Ma - Fully Assessed Reason for Visit: [facility] Placement [Other] Prescriptions as of 10/05/2022 - busPIRone (BUSPAR) 10 mg tablet Take 1 tablet by mouth twice daily. - atorvastatin (LIPITOR) 20 mg tablet Take 1 tablet by mouth once daily. - citalopram (CELEXA) 20 mg tablet Take 1 tablet by mouth once daily. - levothyroxine (LEVOXYL) 100 mcg tablet Take 1 tablet by mouth once daily. Take on empty stomach. 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 Problem List As Of Date 10/04/2022 Noted Resolved DIFFUS CYSTIC MASTOPATHY [N60.19] 07/23/2006 SPASM OF MUSCLE [M62.838] 07/23/2006 GENITAL PROLAPSE [618] 07/23/2006 SPONDYLOS NOS W/O MYELOP [M47.9] Morbid obesity (HCC) [E66.01] 09/01/2019 Esophageal reflux [K21.9] 09/01/2019 MILTON HYPERT HRT/RENAL DIS [404.1] 07/23/2006 UNSP ABNORMAL MAMMOGRAM (Right) [R92.8] 07/25/2005 07/23/2006 BREAST CANCER UPPER OUTER (Right) [C50.419] 08/03/2005 02/22/2009 SEROMA, POST OP [[id number]] 09/19/2005 02/22/2009 Essential hypertension [I10] 07/23/2006 Syncope and collapse [R55] 02/01/2007 05/30/2016 Hyperlipidemia [E78.5] 11/24/2021 Malignant neoplasm of breast (female), unspecif* 09/01/2019 UTEROVAG PROLAPS-INCOMPL [N81.2] 05/15/2008 06/08/2008 Vitamin D deficiency [E55.9] 10/22/2008 Nontraumatic rupture of tendons of biceps (long*12/09/2008 Asymptomatic varicose veins [I83.90] 12/09/2008 09/01/2019 Low back pain [M54.50] 01/18/2010 09/01/2019 Neuritis of lower extremity [G57.90] 10/25/2010 Anxiety and depression [F41.9, F32.A] 05/30/2011 Osteopenia [M85.80] Blood glucose elevated [R73.9] 10/27/2011 09/01/2019 Lumbar stenosis [M48.061] 10/26/2011 Degenerative spondylolisthesis [M43.10] 10/26/2011 Hypokalemia [E87.6] 10/28/2011 09/01/2019 Multinodular goiter [E04.2] 02/27/2012 05/22/2012 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] 04/30/2012 09/01/2019 Hypothyroidism, iatrogenic [E03.2] 04/16/2012 Arthritis of knee [M17.10] 05/01/2014 09/01/2019 Chronic pain of both knees [M25.561, M25.562, G*06/27/2016 09/01/2019 Bilateral primary osteoarthritis of knee [M17.0]06/27/2016 Malignant neoplasm of female breast (HCC) [C50.*07/10/2016 09/01/2019 HLD (hyperlipidemia) [E78.5] 08/01/2016 Stage 3a chronic kidney disease (HCC) [N18.31] 08/01/2016 Aftercare following right knee joint replacemen*08/16/2016 09/01/2019 H/O amputation of lesser toe, left (HCC) [Z89.4*09/01/2019 History of breast cancer [Z85.3] 09/01/2019 Weight loss [R63.4] 11/03/2020 Dementia without behavioral disturbance (HCC) [*05/30/2021 Hypertensive kidney disease with stage 3a chron*11/24/2021 Encounter Status:Closed by TANYA ROJAS MA on 10/05/22 [facility] ([id number]) 1940 F Date Time Provider Department 09/29/22 GAVINO MELENDEZ [facility] During your visit today, we recorded the following information about you: Carey Bell LPN 09/29/2022 12:10 PM Signed Son calling for pt. Pt is having urine symptoms. Wetting thru everything,frequency x 2 days Denies: pain, burning . Pt drinking 5 to 6 glasses of water per day. Son is asking to have something called in for UTI. He was instructed put would need to be seen or [facility]. Son unable to bring pt in his car is down and he is waiting on parts.. Please advise son. Carey Arizmendi Ray Melendez MD 09/30/2022 8:23 AM Signed OK to go ahead and treat with three days of Bactrim as ordered MD Emelia Fraser Ma 10/02/2022 10:05 AM Signed Call to pt son, Nima and notified him of below. 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 May have cleared up, but is picking up Rx. Emelia Rodriguez Ma Allergies As of Date: 09/29/2022 Noted Allergy Reaction AMOXICILLIN 06/27/2005 4 - Hives DURICEF (CEFADROXIL) 06/27/2005 4 - Hives FLOXIN (OFLOXACIN) 06/27/2005 4 - Hives GRASS POLLEN 06/27/2005 PINE NEEDLE OIL 06/27/2005 Date Reviewed: 09/07/2022 Reviewed by: Emelia Rodriguez Ma - Fully Assessed Reason for Visit: urine symptoms [Other] Order(s):sulfamethoxaz ole-trimethoprim (BACTRIM DS) 800-160 mg per tabletTake 1 tablet by mouth twice daily for 3 days.Disp: 6 tabletRfl: 0 Prescriptions as of 10/02/2022 - sulfamethoxazole-trime thoprim (BACTRIM DS) 800-160 mg per tablet Take 1 tablet by mouth twice daily for 3 days. - busPIRone (BUSPAR) 10 mg tablet Take 1 tablet by mouth twice daily. - atorvastatin (LIPITOR) 20 mg tablet Take 1 tablet by mouth once daily. - citalopram (CELEXA) 20 mg tablet Take 1 tablet by mouth once daily. - levothyroxine (LEVOXYL) 100 mcg tablet Take 1 tablet by mouth once daily. Take on empty stomach. 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 Problem List As Of Date 09/29/2022 Noted Resolved DIFFUS CYSTIC MASTOPATHY [N60.19] 07/23/2006 SPASM OF MUSCLE [M62.838] 07/23/2006 GENITAL PROLAPSE [618] 07/23/2006 SPONDYLOS NOS W/O MYELOP [M47.9] Morbid obesity (HCC) [E66.01] 09/01/2019 Esophageal reflux [K21.9] 09/01/2019 MILTON HYPERT HRT/RENAL DIS [404.1] 07/23/2006 UNSP ABNORMAL MAMMOGRAM (Right) [R92.8] 07/25/2005 07/23/2006 BREAST CANCER UPPER OUTER (Right) [C50.419] 08/03/2005 02/22/2009 SEROMA, POST OP [DOA4152] 09/19/2005 02/22/2009 Essential hypertension [I10] 07/23/2006 Syncope and collapse [R55] 02/01/2007 05/30/2016 Hyperlipidemia [E78.5] 11/24/2021 Malignant neoplasm of breast (female), unspecif* 09/01/2019 UTEROVAG PROLAPS-INCOMPL [N81.2] 05/15/2008 06/08/2008 Vitamin D deficiency [E55.9] 10/22/2008 Nontraumatic rupture of tendons of biceps (long*12/09/2008 Asymptomatic varicose veins [I83.90] 12/09/2008 09/01/2019 Low back pain [M54.50] 01/18/2010 09/01/2019 Neuritis of lower extremity [G57.90] 10/25/2010 Anxiety and depression [F41.9, F32.A] 05/30/2011 Osteopenia [M85.80] Blood glucose elevated [R73.9] 10/27/2011 09/01/2019 Lumbar stenosis [M48.061] 10/26/2011 Degenerative spondylolisthesis [M43.10] 10/26/2011 Hypokalemia [E87.6] 10/28/2011 09/01/2019 Multinodular goiter [E04.2] 02/27/2012 05/22/2012 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] 04/30/2012 09/01/2019 Hypothyroidism, iatrogenic [E03.2] 04/16/2012 Arthritis of knee [M17.10] 05/01/2014 09/01/2019 Chronic pain of both knees [M25.561, M25.562, G*06/27/2016 09/01/2019 Bilateral primary osteoarthritis of knee [M17.0]06/27/2016 Malignant neoplasm of female breast (HCC) [C50.*07/10/2016 09/01/2019 HLD (hyperlipidemia) [E78.5] 08/01/2016 Stage 3a chronic kidney disease (HCC) [N18.31] 08/01/2016 Aftercare following right knee joint replacemen*08/16/2016 09/01/2019 H/O amputation of lesser toe, left (HCC) [Z89.4*09/01/2019 History of breast cancer [Z85.3] 09/01/2019 Weight loss [R63.4] 11/03/2020 Dementia without behavioral disturbance (HCC) [*05/30/2021 Hypertensive kidney disease with stage 3a chron*11/24/2021 Prescriptions ordered this encounter Disp Refills Start End SULFAMETHOXAZOLE 800 MG-TRIMETHOPRIM* 6 ta* 0 09/30/2022 10/03/2022 Route: ORAL Sig: Take 1 tablet by mouth twice daily for 3 days. Encounter Status:Closed by EMELIA RODRIGUEZ MA on 10/02/22 [facility] CNOVon 09-07-2022 CNOV Office Visit (FAMPWS ) LETTY LEON ([id number]) 1940 F Date Time Provider Department 09/07/22 2:20 PM GAVINO MELENDEZ During your visit today, we recorded the following information about you: Pulse Respiration Blood pressure 60/minute 16/minute 94/62 Gavino Melendez MD 09/07/2022 2:56 PM Signed Chief Complaint Patient presents with: Hospital F/U: Fpc follow up. HPI Letty Leon is a 82 year old female who presents here today for a Fpc follow up. Pt here today with her son for a [place] discharge. Pt was admitted into [facility] due to UTI, low BP, Dementia and recurrent falls. Pt was admitted from 08/14/22 and was stable for discharge to SNF on 08/16/22. Pt recently discharged from [facility] on 09/03/22. Nima unsure what the patient did while in [place], Dr. Gann told him she looked good, Nursing said she did well and Therapy said she did good. Before discharged pt did fall out of bed. When pt was discharged home, Nima states she almost fell in the kitchen but did not. Pt here today in a wheelchair, declines walking. Pt has to use a walker with assistance in order to ambulate. They have a lift chair at home, and are getting a hospital bed. Working on getting Home Health assistance also. Right now Nima and his daughter are providing care for Letty. Pt was having issues of confusion and being disoriented. Nima states that this has seemed to have gotten worse again. Nima spoke with WILMER Aclocer at [place] and they were ordering hospital bed and faxing it over to [employer].. Past medical history, appointments, medications, allergies reviewed. 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 VITAMIN D DEFICIENCY NOS 10/22/2008 Previous Surgical History PAST SURGICAL HISTORY Procedure Laterality Date APPENDECTOMY ARTHRP KNE CONDYLEANDPLATU MEDIALANDLAT COMPARTMENTS Right 08/16/2016 Knee replacement, total BIOPSY CERVIX SINGLE/MULT/EXCISION OF LESION SPX 87 BREAST BIOPSY MAMOTOME LEFT 07/27/05 right breast BREAST BIOPSY MAMOTOME LEFT 07/27/05 right breast BREAST FINE NEEDLE ASPIRATION 07/17/06 U/S FNA UOQ left breast lumpectomy site BX/EXC LYMPH NODE OPEN DEEP AXILLARY NODE 08/15/2005 RIGHT CARDIAC CATHETERIZATION HX 1998 CHOLECYSTECTOMY Cholecystectomy COLONOSCOPY - DIAGNOSTIC 06/27/87 COLONOSCOPY FLX DX W/COLLJ SPEC WHEN PFRMD 04/10/2006 Colonoscopy-repeat in CORRECT BUNION,SIMPLE DILATION AND CURETTAGE DXAND/THER NONOBSTETRIC Dilation AND curettage FNA WITH IMAGING 03/04/12 U/S FNA bilateral thyroid nodules FNA WITH IMAGING 03/16/12 U/S FNA left thyroid nodule HYSTERECTOMY HX 2007 TVH, USVVS, TOT INJ RADIOACTIVE TRACER FOR ID OF SENTINEL NODE 08/15/2005 RIGHT LAMINECTOMY,>2 SGMT,LUMBAR 10/26/2011 L2-5 decompression AND fusion LAPS ABD PRTMANDOMENTUM DX W/WO SPEC BR/WA SPX Laparoscopy excision of ovarian cyst LEFT HEART CATH,PERCUTANEOUS 04/27 LIG/TRNSXJ FLP TUBE ABDL/VAG APPR UNI/BI Tubal ligation MAMMOGRAM NEEDLE LOC LEFT 08/15/2005 RIGHT MASTECTOMY PARTIAL 08/15/2005 RIGHT PARATHYROIDECTOMY/EXPL ORATION PARATHYROIDS 04/16/12 PREOP PLACEMENT NEEDLE LOC 08/15/2005 RIGHT SIGMOIDOSCOPY FLX DX W/COLLJ SPEC BR/WA IF PFRMD 01/2000 Sigmoidoscopy, flexible THYROIDECTOMY TOTAL/COMPLETE 04/16/12 total Family History FAMILY HISTORY Problem Relation Age of Onset Breast Cancer Mother 37 Heart Father Breast Cancer Maternal Grandmother Diabetes Brother Colon Cancer Paternal Aunt Patient Allergies ALLERGIES Allergen Reactions Amoxicillin Hives Duricef [Cefadroxil] Hives Floxin [Ofloxacin] Hives Grass Pollen [place] Needle Oil Current Medications Current Outpatient Medications on File Prior to Visit Medication Sig busPIRone (BUSPAR) 10 mg tablet Take 1 tablet by mouth twice daily. atorvastatin (LIPITOR) 20 mg tablet Take 1 tablet by mouth once daily. citalopram (CELEXA) 20 mg tablet Take 1 tablet by mouth once daily. levothyroxine (LEVOXYL) 100 mcg tablet Take 1 tablet by mouth once daily. Take on empty stomach. For Thyroid COMPOUNDED PRESCRIPTION Powerstep orthotics (L85.9) Hyperkeratosis (primary encounter diagnosis) (M20.12) Acquired hallux valgus of left foot (M12.9) Arthropathy Cholecalciferol, Vitamin D3, 25 mcg (1 (more content not included)... Normal [facility] Best Basophil percentageOrdered B y: Nima Grover on 08-31-2022 Chloride [Moles/Vol] 109 mmol/L 98-107 [facility] Glucose [Mass/Vol] 97 mg/dL 74-106 [facility] Potassium [Moles/Vol] 4.8 mmol/L 3.5-5.1 [facility] Sodium [Moles/Vol] 142 mmol/L 136-145 [facility] WBC (Bld) [#/Vol] 5.0 10*3/uL 4.4-11.0 [facility] Blood erythrocytes count (nu mber/volume)Ordered By: Nima Grover on 08-31-2022 RBC (Bld) [#/Vol] 3.82 10*6/uL 4.2-5.4 [facility] Blood hemoglobin measurement (mass/volume)Ordered By: Nima Grover on 08-31-2022 Hemoglobin (Bld) [Mass/Vol] 11.8 g/dL 12.0-15.0 [facility] Blood platelet mean volumeOr dered By: Nima Grovre on 08-31-2022 Platelet mean volume (Bld) [Entitic vol] 11.7 fL 6.2-12.0 [facility] Determination of erythrocyte mean corpuscular volume (MCV)Ordered By: Nima Grover on 08-31-2022 MCV (RBC) [Entitic vol] 98.4 fL 81-99 [facility] Hematocrit Auto (Bld) [Volum e fraction]Ordered By: Nima Grover on 08-31-2022 Hematocrit (Bld) [Volume fraction] 37.6 % 37-47 [facility] Laboratory - Chemistry and C hemistry - challengeOrdered By: Nima Grover on 08-31-2022 CO2 [Moles/Vol] 28.0 mmol/L 21.0-32.0 [facility] Urea nitrogen/Creatinine [Mass ratio] 37.7 mg/mg 10-20 [facility] Laboratory - Hematology and Cell countsOrdered By: Nima Grover on 08-31-2022 Erythrocyte distribution width (RBC) [Entitic vol] 46.1 fL 35.1-43.9 [facility] Erythrocyte distribution width (RBC) [Ratio] 12.8 % 11.6-14.6 [facility] MCH (RBC) [Entitic mass] 30.9 pg 27.0-32.0 [facility] MCHC Auto (RBC) [Mass/Vol]Or dered By: Nima Grover on 08-31-2022 MCHC (RBC) [Mass/Vol] 31.4 g/dL 32-36 [facility] No Panel InformationOrdered By: Nima Grover on 08-31-2022 Estimated GFR (MDRD) Amer 70 mL/min >60 [facility] Comment on above: GFR Calc Estimated GFR (MDRD) Non-Af Amer 58 mL/min >60 [facility] Comment on above: Non- GFR Calc Platelets bldOrdered By: Imani Grover on 08-31-2022 Platelets (Bld) [#/Vol] 191 10*3/uL 150-450 [facility] Serum or plasma calcium enrique urement (mass/volume)Ordered By: Nima Grover on 08-31-2022 Calcium [Mass/Vol] 8.6 mg/dL 8.5-10.1 [facility] Serum or plasma creatinine m easurement (mass/volume)Ordered By: Nima Grover on 08-31-2022 Creatinine [Mass/Vol] 0.98 mg/dL 0.55-1.02 [facility] Comment on above: The validity of the calculated GFR & GFRAA in patients over 70 years has not been determined. Clinical correlation is essential. Serum or plasma urea nitroge n measurement (mass/volume)Ordered By: Nima Grover on 08-31-2022 Urea nitrogen [Mass/Vol] 37 mg/dL 7-18 [facility] Thin prep Papanicolaou smear with manual screeningOrdered By: Nima Grover on 08-31-2022 Thin prep Papanicolaou smear with manual screening 5 5-15 [facility] Basophil percentageOrdered B y: Nima Grover on 08-24-2022 Chloride [Moles/Vol] 110 mmol/L 98-107 [facility] Glucose [Mass/Vol] 83 mg/dL 74-106 [facility] Potassium [Moles/Vol] 5.0 mmol/L 3.5-5.1 [facility] Sodium [Moles/Vol] 141 mmol/L 136-145 [facility] WBC (Bld) [#/Vol] 5.0 10*3/uL 4.4-11.0 [facility] Blood erythrocytes count (nu mber/volume)Ordered By: Nima Grover on 08-24-2022 RBC (Bld) [#/Vol] 3.82 10*6/uL 4.2-5.4 [facility] Blood hemoglobin measurement (mass/volume)Ordered By: Nima Grover on 08-24-2022 Hemoglobin (Bld) [Mass/Vol] 12.1 g/dL 12.0-15.0 [facility] Blood platelet mean volumeOr dered By: Nima Grover on 08-24-2022 Platelet mean volume (Bld) [Entitic vol] 11.1 fL 6.2-12.0 [facility] Determination of erythrocyte mean corpuscular volume (MCV)Ordered By: Nima Grover on 08-24-2022 MCV (RBC) [Entitic vol] 99.0 fL 81-99 [facility] Hematocrit Auto (Bld) [Volum e fraction]Ordered By: Nima Grover on 08-24-2022 Hematocrit (Bld) [Volume fraction] 37.8 % 37-47 [facility] Laboratory - Chemistry and C hemistry - challengeOrdered By: Nima Grover on 08-24-2022 CO2 [Moles/Vol] 27.0 mmol/L 21.0-32.0 [facility] Urea nitrogen/Creatinine [Mass ratio] 21.4 mg/mg 10-20 [facility] Laboratory - Hematology and Cell countsOrdered By: Nima Grover on 08-24-2022 Erythrocyte distribution width (RBC) [Entitic vol] 47.1 fL 35.1-43.9 [facility] Erythrocyte distribution width (RBC) [Ratio] 12.9 % 11.6-14.6 [facility] MCH (RBC) [Entitic mass] 31.7 pg 27.0-32.0 [facility] MCHC Auto (RBC) [Mass/Vol]Or dered By: Nima Grover on 08-24-2022 MCHC (RBC) [Mass/Vol] 32.0 g/dL 32-36 [facility] No Panel InformationOrdered By: Nima Grover on 08-24-2022 Estimated GFR (MDRD) Amer 66 mL/min >60 [facility] Comment on above: GFR Calc Estimated GFR (MDRD) Non-Af Amer 54 mL/min >60 [facility] Comment on above: Non- GFR Calc Platelets bldOrdered By: Imani Grover on 08-24-2022 Platelets (Bld) [#/Vol] 219 10*3/uL 150-450 [facility] Serum or plasma calcium enrique urement (mass/volume)Ordered By: Nima Grover on 08-24-2022 Calcium [Mass/Vol] 8.6 mg/dL 8.5-10.1 [facility] Serum or plasma creatinine m easurement (mass/volume)Ordered By: Nima Grover on 08-24-2022 Creatinine [Mass/Vol] 1.03 mg/dL 0.55-1.02 [facility] Comment on above: The validity of the calculated GFR & GFRAA in patients over 70 years has not been determined. Clinical correlation is essential. Serum or plasma urea nitroge n measurement (mass/volume)Ordered By: Nima Grover on 08-24-2022 Urea nitrogen [Mass/Vol] 22 mg/dL 7-18 [facility] Thin prep Papanicolaou smear with manual screeningOrdered By: Nima Grover on 08-24-2022 Thin prep Papanicolaou smear with manual screening 4 5-15 [facility] Basophil percentageOrdered B y: Nima Grover on 08-22-2022 Cholesterol [Mass/Vol] 111 mg/dL <200 [facility] Comment on above: <200 mg/dL Desirable 200-240 mg/dL Borderline >240 mg/dL High Risk Triglyceride [Mass/Vol] 62 mg/dL <199 [facility] Comment on above: The drugs N-Acetylcy steine and Metamizole may falsely depress this assay.Serum Triglycerides Reference Interval Normal <150 mg/dL Borderline high 150 - 199 mg/dL High 200 - 499 mg/dL Very High > or = 500 mg/dL No Panel InformationOrdered By: Nima Grover on 08-22-2022 Thyroid Stimulating Hormone (TSH) 0.34 uIU/mL 0.358-3.74 [facility] Vitamin D 25-Hydroxy 54.3 ng/mL [facility] Comment on above: Vitamin D 25(OH) Sta tus Range Deficiency <20 ng/mL (50nmol/L) Insufficiency 20 - 30 ng/mL (50 - 75 nmol/L) Sufficiency 30 - 100 ng/mL (75 - 250 nmol/L) Toxicity >100 ng/mL (>250 nmol/L) Serum or plasma cholesterol in HDL measurement (mass/volume)Ordered By: Nima Grover on 08-22-2022 Cholesterol in HDL [Mass/Vol] 43 mg/dL >40 [facility] Comment on above: The drugs N-Acetylcy steine and Metamizole may falsely depress this assay. Reference Range HDL <40 mg/dL Low HDL Cholesterol HDL >or= 60 mg/dL High HDL Cholesterol Serum or plasma cholesterol in VLDL measurement (mass/volume)Ordered By: Nima Grover on 08-22-2022 Cholesterol in VLDL [Mass/Vol] 12 mg/dL 5-40 [facility] Serum or plasma low density lipoprotein (LDL) cholesterol measurement (mass/volume)Ordered By: Nima Grover on 08-22-2022 Cholesterol in LDL [Mass/Vol] 56 mg/dL 0-130 [facility] Laboratory - Microbiology an d Antimicrobial susceptibilityOrdered By: Dr. Rojas on 08-20-2022 Bacteria identified Cx Nom (Bld) No growth in 5 days. [facility] Basophil percentageOrdered B y: Nima Grover on 08-17-2022 Chloride [Moles/Vol] 113 mmol/L 98-107 [facility] Glucose [Mass/Vol] 97 mg/dL 74-106 [facility] Potassium [Moles/Vol] 4.2 mmol/L 3.5-5.1 [facility] Sodium [Moles/Vol] 144 mmol/L 136-145 [facility] WBC (Bld) [#/Vol] 4.4 10*3/uL 4.4-11.0 [facility] Blood erythrocytes count (nu mber/volume)Ordered By: Nima Grover on 08-17-2022 RBC (Bld) [#/Vol] 3.69 10*6/uL 4.2-5.4 [facility] Blood hemoglobin measurement (mass/volume)Ordered By: Nima Grover on 08-17-2022 Hemoglobin (Bld) [Mass/Vol] 11.3 g/dL 12.0-15.0 [facility] Blood platelet mean volumeOr dered By: Nima Grover on 08-17-2022 Platelet mean volume (Bld) [Entitic vol] 12.0 fL 6.2-12.0 [facility] Determination of erythrocyte mean corpuscular volume (MCV)Ordered By: Nima Grover on 08-17-2022 MCV (RBC) [Entitic vol] 97.0 fL 81-99 [facility] Hematocrit Auto (Bld) [Volum e fraction]Ordered By: Nima Grover on 08-17-2022 Hematocrit (Bld) [Volume fraction] 35.8 % 37-47 [facility] Laboratory - Chemistry and C hemistry - challengeOrdered By: Nima Grover on 08-17-2022 CO2 [Moles/Vol] 27.0 mmol/L 21.0-32.0 [facility] Urea nitrogen/Creatinine [Mass ratio] 21.9 mg/mg 10-20 [facility] - Hematology and Cell countsOrdered By: Nima Grover on 08-17-2022 Erythrocyte distribution width (RBC) [Entitic vol] 46.3 fL 35.1-43.9 [facility] Erythrocyte distribution width (RBC) [Ratio] 12.9 % 11.6-14.6 [facility] MCH (RBC) [Entitic mass] 30.6 pg 27.0-32.0 [facility] MCHC Auto (RBC) [Mass/Vol]Or dered By: Nima Grover on 08-17-2022 MCHC (RBC) [Mass/Vol] 31.6 g/dL 32-36 [facility] No Panel InformationOrdered By: Nima Grover on 08-17-2022 Estimated GFR (MDRD) Amer 80 mL/min >60 [facility] Comment on above: GFR Calc Estimated GFR (MDRD) Non-Af Amer 66 mL/min >60 [facility] Comment on above: Non- GFR Calc Platelets bldOrdered By: Imani Grover on 08-17-2022 Platelets (Bld) [#/Vol] 170 10*3/uL 150-450 [facility] Serum or plasma calcium enrique urement (mass/volume)Ordered By: Nima Grover on 08-17-2022 Calcium [Mass/Vol] 8.6 mg/dL 8.5-10.1 [facility] Serum or plasma creatinine m easurement (mass/volume)Ordered By: Nima Grover on 08-17-2022 Creatinine [Mass/Vol] 0.87 mg/dL 0.55-1.02 [facility] Comment on above: The validity of the calculated GFR & GFRAA in patients over 70 years has not been determined. Clinical correlation is essential. Serum or plasma urea nitroge n measurement (mass/volume)Ordered By: Nima Grover on 08-17-2022 Urea nitrogen [Mass/Vol] 19 mg/dL 7-18 [facility] Thin prep Papanicolaou smear with manual screeningOrdered By: Nima Grover on 08-17-2022 Thin prep Papanicolaou smear with manual screening 4 5-15 [facility] Absolute lymphocyte countOrd ered By: Dr. Greenwood on 08-16-2022 Lymphocytes Auto (Unsp spec) [#/Vol] 0.79 10*3/uL 0.83-4.51 [facility] Basophil percentageOrdered B y: Dr. Greenwood on 08-16-2022 Basophils/100 WBC (Bld) 0.5 % 0-1 [facility] Chloride [Moles/Vol] 114 mmol/L 98-107 [facility] Eosinophils/100 WBC (Bld) 6.1 % 0-5 [facility] Glucose [Mass/Vol] 99 mg/dL 74-106 [facility] Neutrophils (Bld) [#/Vol] 2.5 10*3/uL 2.0-7.7 [facility] Neutrophils/100 WBC (Bld) 62.1 % 47-70 [facility] Potassium [Moles/Vol] 4.2 mmol/L 3.5-5.1 [facility] Sodium [Moles/Vol] 143 mmol/L 136-145 [facility] WBC (Bld) [#/Vol] 4.1 10*3/uL 4.4-11.0 [facility] Blood erythrocytes count (nu mber/volume)Ordered By: Dr. Greenwood on 08-16-2022 RBC (Bld) [#/Vol] 3.67 10*6/uL 4.2-5.4 [facility] Blood hemoglobin measurement (mass/volume)Ordered By: Dr. Greenwood on 08-16-2022 Hemoglobin (Bld) [Mass/Vol] 11.4 g/dL 12.0-15.0 [facility] Blood lymphocytes/100 leukoc ytesOrdered By: Dr. Greenwood on 08-16-2022 Lymphocytes/100 WBC (Bld) 19.3 % 19-41 [facility] Blood monocytes/100 leukocyt esOrdered By: Dr. Greenwood on 08-16-2022 Monocytes/100 WBC (Bld) 11.5 % 0-10 [facility] Blood platelet mean volumeOr dered By: Dr. Greenwood on 08-16-2022 Platelet mean volume (Bld) [Entitic vol] 11.5 fL 6.2-12.0 [facility] COVID-19 virus antigen assay Ordered By: Dr. Mclean on 08-16-2022 SARS-CoV-2 (COVID-19) Ag IA.rapid Ql (Resp) [facility] Culture, urineOrdered By: Dr Bertha Rojas on 08-16-2022 Bacteria identified Cx Nom (U) Escherichia coli [facility] Determination of erythrocyte mean corpuscular volume (MCV)Ordered By: Dr. Greenwood on 08-16-2022 MCV (RBC) [Entitic vol] 99.5 fL 81-99 [facility] Hematocrit Auto (Bld) [Volum e fraction]Ordered By: Dr. Greenwood on 08-16-2022 Hematocrit (Bld) [Volume fraction] 36.5 % 37-47 [facility] Laboratory - Chemistry and C hemistry - challengeOrdered By: Dr. Greenwood on 08-16-2022 CO2 [Moles/Vol] 27.0 mmol/L 21.0-32.0 [facility] Urea nitrogen/Creatinine [Mass ratio] 23.8 mg/mg 10-20 [facility] Laboratory - Hematology and Cell countsOrdered By: Dr. Greenwood on 08-16-2022 Erythrocyte distribution width (RBC) [Entitic vol] 46.9 fL 35.1-43.9 [facility] Erythrocyte distribution width (RBC) [Ratio] 13.0 % 11.6-14.6 [facility] Immature granulocytes/100 WBC (Bld) 0.500 % 0.0-0.9 [facility] Comment on above: IG% - Immature Granu locytes (promyelocytes, myelocytes and metamyelocytes) > 1% indicates that a LEFT SHIFT is Present. MCH (RBC) [Entitic mass] 31.1 pg 27.0-32.0 [facility] Nucleated RBC/100 WBC (Bld) [Ratio] 0 % 0-5 [facility] MCHC Auto (RBC) [Mass/Vol]Or dered By: Dr. Greenwood on 08-16-2022 MCHC (RBC) [Mass/Vol] 31.2 g/dL 32-36 [facility] No Panel InformationOrdered By: Dr. Greenwood on 08-16-2022 Estimated Creatinine Clearance Calc 50.62 ml/min [facility] Estimated GFR (MDRD) Amer 78 mL/min >60 [facility] Comment on above: GFR Calc Estimated GFR (MDRD) Non-Af Amer 65 mL/min >60 [facility] Comment on above: Non- GFR Calc Platelets bldOrdered By: Dr. Greenwood on 08-16-2022 Platelets (Bld) [#/Vol] 150 10*3/uL 150-450 [facility] Serum or plasma calcium enrique urement (mass/volume)Ordered By: Dr. Greenwood on 08-16-2022 Calcium [Mass/Vol] 8.5 mg/dL 8.5-10.1 [facility] Serum or plasma creatinine m easurement (mass/volume)Ordered By: Dr. Greenwood on 08-16-2022 Creatinine [Mass/Vol] 0.88 mg/dL 0.55-1.02 [facility] Comment on above: The validity of the calculated GFR & GFRAA in patients over 70 years has not been determined. Clinical correlation is essential. Serum or plasma urea nitroge n measurement (mass/volume)Ordered By: Dr. Greenwood on 08-16-2022 Urea nitrogen [Mass/Vol] 21 mg/dL 7-18 [facility] Thin prep Papanicolaou smear with manual screeningOrdered By: Dr. Greenwood on 08-16-2022 Thin prep Papanicolaou smear with manual screening 2 5-15 [facility] Absolute lymphocyte counton 08-14-2022 Lymphocytes Auto (Unsp spec) [#/Vol] 0.32 10*3/uL 0.83-4.51 [facility] Work Phone: Basophil percentageOrdered B y: Dr. Rojas on 08-14-2022 Basophil percentage 10-25 SEEN /hpf 0-5 [facility] Bilirubin [Mass/Vol] 0.80 mg/dL 0.20-1.00 [facility] Comment on above: For patients on eltr ombopag therapy, use of Dimension [place] TBIL is not recommended. Lactate [Moles/Vol] 1.2 mmol/L 0.4-2.0 [facility] Protein [Mass/Vol] 6.6 g/dL 6.4-8.2 [facility] Basophil percentageon 2021 Basophils/100 WBC (Bld) 0.3 % 0-1 [facility] Work Phone: Chloride [Moles/Vol] 107 mmol/L 98-107 [facility] Work Phone: [phone] Eosinophils/100 WBC (Bld) 0.5 % 0-5 [facility] Work Phone: Glucose [Mass/Vol] 127 mg/dL 74-106 [facility] Work Phone: Comment on above: Fasting Glucose resu lt greater than or equal to 126 mg/dL suggests DIABETES MELLITUS per A.D.A. criteria. Neutrophils (Bld) [#/Vol] 5.6 10*3/uL 2.0-7.7 [facility] Work Phone: Neutrophils/100 WBC (Bld) 89.4 % 47-70 [facility] Work Phone: Potassium [Moles/Vol] 4.6 mmol/L 3.5-5.1 [facility] Work Phone: [phone] Sodium [Moles/Vol] 137 mmol/L 136-145 [facility] Work Phone: [phone] WBC (Bld) [#/Vol] 6.3 10*3/uL 4.4-11.0 [facility] Work Phone: Bilirubin Test strip Ql (U)O rdered By: Dr. Rojas on 08-14-2022 Bilirubin Ql (U) 1 mg/dL Negative [facility] Comment on above: COLOR OF URINE MAY A FFECT DIPSTICK RESULTS. Blood erythrocytes count (nu mber/volume)on 08-14-2022 RBC (Bld) [#/Vol] 4.31 10*6/uL 4.2-5.4 [facility] Work Phone: Blood hemoglobin measurement (mass/volume)on 08-14-2022 Hemoglobin (Bld) [Mass/Vol] 13.2 g/dL 12.0-15.0 [facility] Work Phone: Blood lymphocytes/100 leukoc yteson 08-14-2022 Lymphocytes/100 WBC (Bld) 5.1 % 19-41 [facility] Work Phone: Blood manual differential co mment interpretation (narrative result)Ordered By: Dr. Rojas on 08-14-2022 Manual differential comment [place] (Bld) [Interp] SCANNED [facility] Comment on above: LYMPHOPENIA NOTED Blood monocytes/100 leukocyt eson 08-14-2022 Monocytes/100 WBC (Bld) 4.4 % 0-10 [facility] Work Phone: Blood platelet mean volumeon 08-14-2022 Platelet mean volume (Bld) [Entitic vol] 10.9 fL 6.2-12.0 [facility] Work Phone: CNOVon 08-14-2022 CNOV Office Visit (FAMPWS ) LETTY LEON ([id number]) 1940 F Date Time Provider Department 08/14/22 1:20 PM JAREN MONTES During your visit today, we recorded the following information about you: Temperature Pulse Respiration Blood pressure 98.6 degrees 78/minute 24/minute 76/44 Weight 82.6 kg Jaren Montes APRN.CNP 08/14/2022 1:55 PM Addendum Chief Complaint Patient presents with: Multiple falls: X 1 week HPI Letty Leon is a 82 year old female who presents here today for Above Complaints. Son and granddaughter is here with us. Here for complaints of multiple falls in the past 1 week. Family remarks that she fell twice. Once when getting up from her wheelchair. Today, BP is low at 74/48. This was a blood pressure that was rechecked, previous blood pressure was systolically in the 60s. She is not prescribed or taking any medications that would cause lowering of blood pressure. Had a normal CBC on 06/24/2022. Family believes that she is more disoriented than normal. She did suffer an abrasion to the right forearm. Granddaughter cleansing and placing Neosporin. Family has remarked that she has not been drinking fluids like she usually does. Not asking for any water. Leaving water glasses half-full. Son remarks that she has a pacemaker. Letty was unable to get out of her wheelchair today. Past medical history, appointments, medications, allergies reviewed. EXAM: BP (!) 76/44 (BP Site: Left Arm) Pulse 78 Temp 37 ?C (98.6 ?F) (Left Tympanic) Resp 24 Wt 82.6 kg (182 lb) SpO2 97% BMI 26.88 kg/m? General Appearance: Appears weak, disoriented, moaning at times Oropharynx: Mucosa is dry. Lungs: Lungs clear to auscultation. No wheezing, rhonchi, rales.. Heart: RRR without murmur, gallop, or rubs. No ectopy. Component Latest Ref Rng AND Units 06/24/2022 Protein, Total 6.3 - 8.0 g/dL 7.0 Albumin 3.9 - 4.9 g/dL 4.2 Calcium 8.5 - 10.2 mg/dL 9.3 Bilirubin, Total 0.2 - 1.3 mg/dL 0.7 Alkaline Phosphatase 34 - 123 U/L 123 AST 13 - 35 U/L 22 ALT 7 - 38 U/L 10 Glucose 74 - 99 mg/dL 75 BUN 7 - 21 mg/dL 14 Creatinine 0.58 - 0.96 mg/dL 1.07 (H) Sodium 136 - 144 mmol/L 142 Potassium 3.7 - 5.1 mmol/L 4.2 Chloride 97 - 105 mmol/L 104 CO2 22 - 30 mmol/L 24 Anion Gap 9 - 18 mmol/L 14 eGFR >=60 mL/min/1.73mA? 52 (L) WBC 3.70 - 11.00 k/uL 6.64 RBC 3.90 - 5.20 m/uL 4.21 Hemoglobin 11.5 - 15.5 g/dL 12.9 Hematocrit 36.0 - 46.0 % 42.0 MCV 80.0 - 100.0 fL 99.8 MCH 26.0 - 34.0 pg 30.6 MCHC 30.5 - 36.0 g/dL 30.7 RDW-CV 11.5 - 15.0 % 13.2 Platelet Count 150 - 400 k/uL 216 MPV 9.0 - 12.7 fL 11.7 Absolute nRBC <0.01 k/uL <0.01 TSH 0.270 - 4.200 mIU/L 0.595 ASSESSMENT/PLAN: 1. Recurrent falls - ICD9: V15.88, ICD10: R29.6 (primary diagnosis) -History of falls but more recently becoming more frequent. Likely secondary to #3. 2. Generalized weakness - ICD9: 780.79, ICD10: R53.1 3. Hypotension, unspecified hypotension type - ICD9: 458.9, ICD10: I95.9 -No contributing factors such as antihypertensive medications. She is not on any other medications that would cause this. Likely cause of her recurrent falls. Patient needs higher level of care including likely IV fluids, more in-depth work-up in a timely fashion. 4. Confusion - ICD9: 298.9, ICD10: R41.0 -Has baseline confusion, more present at this time. Jaren Montes APRN.FIELD TECHNICAL ASSISTANT Discussed with granddaughter and son that Letty needs a more immediate work-up and intervention which would best take place at emergency room in hospital. I offered EMS but family declined and will transport themselves. [facility] ER portal updated This note was partly generated using [employer] voice recognition dictation and may contain some misspelled or inaccurate words missed on review. Allergies As of Date: 08/14/2022 Noted Allergy Reaction AMOXICILLIN 06/27/2005 4 - Hives DURICEF (CEFADROXIL) 06/27/2005 4 - Hives FLOXIN (OFLOXACIN) 06/27/2005 4 - Hives GRASS POLLEN 06/27/2005 PINE NEEDLE OIL 06/27/2005 Date Reviewed: 08/14/2022 Reviewed by: Ancelmo Garcias MA - Fully Assessed Reason for Visit: Multiple falls [Other] Cmt: X 1 week Primary Visit Diagnosis:Recurrent falls [R29.6] Other Visit Diagnoses:Generalized weakness [R53.1] Hypotension, unspecified hypotension type [I95.9] Confusion [R41.0] Prescriptions as of 08/14/2022 - busPIRone (BUSPAR) 10 mg tablet Take 1 tablet by mouth twice daily. - atorvastatin (LIPITOR) 20 mg tablet Take 1 tablet by mouth once daily. - citalopram (CELEXA) 20 mg tablet Take 1 tablet by mouth once daily. - levothyroxine (LEVOXYL) 100 mcg tablet Take 1 tablet by mouth once daily. Take on empty stomach. For Thyroid - COMPOUNDED PRESCRIPTION Powerstep orthotics (L85.9) Hyperkeratosis (primary encounter diagnosis) (M20.12) Acquired hallux valgus of left foot (M12.9) Arthropathy - Renea (more content not included)... Normal [facility] Determination of erythrocyte mean corpuscular volume (MCV)on 08-14-2022 MCV (RBC) [Entitic vol] 98.4 fL 81-99 [facility] Work Phone: Hematocrit Auto (Bld) [Volum e fraction]on 08-14-2022 Hematocrit (Bld) [Volume fraction] 42.4 % 37-47 [facility] Work Phone: Hyaline casts LM.LPF (Urine sed) [#/Area]Ordered By: Dr. Rojas on 08-14-2022 Hyaline casts (Urine sed) [#/Area] 0 /[LPF] 0-5 [facility] INR in Blood by Coagulation assayOrdered By: Dr. Rojas on 08-14-2022 INR Coag (Bld) [Relative time] 1.1 {INR} [facility] Ketones Test strip Ql (U)Ord ered By: Dr. Rojas on 08-14-2022 Ketones Ql (U) Negative Negative [facility] Laboratory - Chemistry and C hemistry - challengeOrdered By: Dr. Rojas on 08-14-2022 ALP [Catalytic activity/Vol] 108 U/L 45-117 [facility] ALT [Catalytic activity/Vol] 17 U/L 13-56 [facility] Globulin (S) [Mass/Vol] 3.0 g/dL 2.2-4.2 [facility] - Chemistry and C hemistry - challengeon 08-14-2022 CO2 [Moles/Vol] 25.0 mmol/L 21.0-32.0 [facility] Work Phone: Urea nitrogen/Creatinine [Mass ratio] 19.3 mg/mg 10-20 [facility] Work Phone: Laboratory - CoagulationOrde red By: Dr. Rojas on 08-14-2022 aPTT Coag (Bld) [Time] 28.3 s 24.1-36.2 [facility] PT Coag (PPP) [Time] 13.8 s 11.7-14.9 [facility] Laboratory - Hematology and Cell countson 08-14-2022 Erythrocyte distribution width (RBC) [Entitic vol] 46.5 fL 35.1-43.9 [facility] Work Phone: Erythrocyte distribution width (RBC) [Ratio] 12.8 % 11.6-14.6 [facility] Work Phone: Immature granulocytes/100 WBC (Bld) 0.300 % 0.0-0.9 [facility] Work Phone: Comment on above: IG% - Immature Granu locytes (promyelocytes, myelocytes and metamyelocytes) > 1% indicates that a LEFT SHIFT is Present. MCH (RBC) [Entitic mass] 30.6 pg 27.0-32.0 [facility] Work Phone: Nucleated RBC/100 WBC (Bld) [Ratio] 0 % 0-5 [facility] Work Phone: MCHC Auto (RBC) [Mass/Vol]on 08-14-2022 MCHC (RBC) [Mass/Vol] 31.1 g/dL 32-36 [facility] Work Phone: Mucus LM Ql (Urine sed)Order ed By: Dr. Rojas on 08-14-2022 Mucus Ql (Urine sed) 0 SEEN /hpf [facility] Nitrite Test strip Ql (U)Ord ered By: Dr. Rojas on 08-14-2022 Nitrite Ql (U) Positive Negative [facility] No Panel Informationon 08-14 Estimated Creatinine Clearance Calc 31.82 ml/min [facility] Work Phone: Estimated GFR (MDRD) Amer 46 mL/min >60 [facility] Work Phone: Comment on above: GFR Calc Estimated GFR (MDRD) Non-Af Amer 38 mL/min >60 [facility] Work Phone: Comment on above: Non- GFR Calc Platelets bldon 08-14-2022 Platelets (Bld) [#/Vol] 205 10*3/uL 150-450 [facility] Work Phone: Protein Test strip Ql (U)Ord ered By: Dr. Rojas on 08-14-2022 Protein Ql (U) 15 mg/dl Negative [facility] Serum or plasma albumin enrique urement (mass/volume)Ordered By: Dr. Rojas on 08-14-2022 Albumin [Mass/Vol] 3.6 g/dL 3.2-5.0 [facility] Serum or plasma albumin/glob ulin mass ratioOrdered By: Dr. Rojas on 08-14-2022 Albumin/Globulin [Mass ratio] 1.2 {ratio} 0.9-2.4 [facility] Serum or plasma calcium enrique urement (mass/volume)on 08-14-2022 Calcium [Mass/Vol] 8.6 mg/dL 8.5-10.1 [facility] Work Phone: Serum or plasma creatinine m easurement (mass/volume)on 08-14-2022 Creatinine [Mass/Vol] 1.40 mg/dL 0.55-1.02 [facility] Work Phone: Comment on above: The validity of the calculated GFR & GFRAA in patients over 70 years has not been determined. Clinical correlation is essential. Serum or plasma urea nitroge n measurement (mass/volume)on 08-14-2022 Urea nitrogen [Mass/Vol] 27 mg/dL 7-18 [facility] Work Phone: Squamous epithelial cells de tection in urine sediment by light microscopyOrdered By: Dr. Rojas on 08-14-2022 Epithelial cells.squamous LM Ql (Urine sed) 0 SEEN /hpf 5-10 [facility] Thin prep Papanicolaou smear with manual screeningOrdered By: Dr. Rojas on 08-14-2022 Thin prep Papanicolaou smear with manual screening 14 U/L 15-37 [facility] Thin prep Papanicolaou smear with manual screeningon 08-14-2022 Thin prep Papanicolaou smear with manual screening 5 5-15 [facility] Work Phone: Urine blood detectionOrdered By: Dr. Rojas on 08-14-2022 RBC Ql (U) 10 /ul Negative [facility] RBC Ql (U) 0 SEEN /hpf 0-5 [facility] Urine clarityOrdered By: Dr. Rojas on 08-14-2022 Clarity (U) Sl. Cloudy Clear [facility] Urine color determinationOrd ered By: Dr. Rojas on 08-14-2022 Color (U) Yellow Yellow [facility] Urine glucose detectionOrder ed By: Dr. Rojas on 08-14-2022 Glucose Ql (U) Normal mg/dl Normal [facility] Urine leukocyte esterase det ection by dipstickOrdered By: Dr. Rojas on 08-14-2022 Leukocyte esterase Test strip Ql (U) 100 /ul Negative [facility] Urine pHOrdered By: Dr. Radha chaparro on 08-14-2022 pH (U) 5.0 [pH] 5.0 - 8.0 [facility] Urine sediment bacteria coun t by microscopy (number/high power field)Ordered By: Dr. Rojas on 08-14-2022 Bacteria LM.HPF (Urine sed) [#/Area] 2 /[HPF] None Seen [facility] Urine specific gravity measu rementOrdered By: Dr. Rojas on 08-14-2022 Specific gravity (U) [Rel density] 1.015 1.002-1.030 [facility] Urobilinogen Auto test strip Ql (U)Ordered By: Dr. Rojas on 08-14-2022 Urobilinogen Ql (U) 1 mg/dl Normal [facility] CNPNon 06-30-2022 CNPN Telephone (MARIWS) LETTY LEON ([id number]) 1940 F Date Time Provider Department 06/30/22 GAVINO MELENDEZ During your visit today, we recorded the following information about you: Gavino Melendez MD 06/30/2022 4:50 PM Signed Please notify patient's son that her lab results look OK; stay on the same medications and follow up as planned MD Tanya Fraser Ma 06/30/2022 4:54 PM Signed Nima notified. Tanya Rojas Ma Allergies As of Date: 06/30/2022 Noted Allergy Reaction AMOXICILLIN 06/27/2005 4 - Hives DURICEF (CEFADROXIL) 06/27/2005 4 - Hives FLOXIN (OFLOXACIN) 06/27/2005 4 - Hives GRASS POLLEN 06/27/2005 PINE NEEDLE OIL 06/27/2005 Date Reviewed: 06/24/2022 Reviewed by: Marline Kim LPN - Fully Assessed Reason for Visit: Results [95] Prescriptions as of 06/30/2022 - busPIRone (BUSPAR) 10 mg tablet Take 1 tablet by mouth twice daily. - atorvastatin (LIPITOR) 20 mg tablet Take 1 tablet by mouth once daily. - citalopram (CELEXA) 20 mg tablet Take 1 tablet by mouth once daily. - levothyroxine (LEVOXYL) 100 mcg tablet Take 1 tablet by mouth once daily. Take on empty stomach. 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 Problem List As Of Date 06/30/2022 Noted Resolved DIFFUS CYSTIC MASTOPATHY [N60.19] 07/23/2006 SPASM OF MUSCLE [M62.838] 07/23/2006 GENITAL PROLAPSE [618] 07/23/2006 SPONDYLOS NOS W/O MYELOP [M47.9] Morbid obesity (HCC) [E66.01] 09/01/2019 Esophageal reflux [K21.9] 09/01/2019 MILTON HYPERT HRT/RENAL DIS [404.1] 07/23/2006 UNSP ABNORMAL MAMMOGRAM (Right) [R92.8] 07/25/2005 07/23/2006 BREAST CANCER UPPER OUTER (Right) [C50.419] 08/03/2005 02/22/2009 SEROMA, POST OP [[id number]] 09/19/2005 02/22/2009 Essential hypertension [I10] 07/23/2006 Syncope and collapse [R55] 02/01/2007 05/30/2016 Hyperlipidemia [E78.5] 11/24/2021 Malignant neoplasm of breast (female), unspecif* 09/01/2019 UTEROVAG PROLAPS-INCOMPL [N81.2] 05/15/2008 06/08/2008 Vitamin D deficiency [E55.9] 10/22/2008 Nontraumatic rupture of tendons of biceps (long*12/09/2008 Asymptomatic varicose veins [I83.90] 12/09/2008 09/01/2019 Low back pain [M54.50] 01/18/2010 09/01/2019 Neuritis of lower extremity [G57.90] 10/25/2010 Anxiety and depression [F41.9, F32.A] 05/30/2011 Osteopenia [M85.80] Blood glucose elevated [R73.9] 10/27/2011 09/01/2019 Lumbar stenosis [M48.061] 10/26/2011 Degenerative spondylolisthesis [M43.10] 10/26/2011 Hypokalemia [E87.6] 10/28/2011 09/01/2019 Multinodular goiter [E04.2] 02/27/2012 05/22/2012 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] 04/30/2012 09/01/2019 Hypothyroidism, iatrogenic [E03.2] 04/16/2012 Arthritis of knee [M17.10] 05/01/2014 09/01/2019 Chronic pain of both knees [M25.561, M25.562, G*06/27/2016 09/01/2019 Bilateral primary osteoarthritis of knee [M17.0]06/27/2016 Malignant neoplasm of female breast (HCC) [C50.*07/10/2016 09/01/2019 HLD (hyperlipidemia) [E78.5] 08/01/2016 Stage 3a chronic kidney disease (HCC) [N18.31] 08/01/2016 Aftercare following right knee joint replacemen*08/16/2016 09/01/2019 H/O amputation of lesser toe, left (HCC) [Z89.4*09/01/2019 History of breast cancer [Z85.3] 09/01/2019 Weight loss [R63.4] 11/03/2020 Dementia without behavioral disturbance (HCC) [*05/30/2021 Hypertensive kidney disease with stage 3a chron*11/24/2021 Encounter Status:Closed by TANYA ROJAS MA on 06/30/22 Normal [facility] CBC panel Auto (Bld)on 06-24 Erythrocyte distribution width (RBC) [Ratio] 13.2 % Normal 11.5-15.0 [facility] Comment on above: Order Comment: Speci men Type: BLOOD SPECIMENOrdering Facility: [facility] Address: [address] [place] [id number] Performed By: #### 5 8410-2 ####[facility] LABIA [id number] [address] [place] Hematocrit (Bld) [Volume fraction] 42.0 % Normal 36.0-46.0 [facility] Comment on above: Order Comment: Speci men Type: BLOOD SPECIMENOrdering Facility: [facility] Address: [address] [place], [place] [id number] Performed By: #### 5 8410-2 ####[facility] LABIA [id number] [place] [address] [place] Hemoglobin (Bld) [Mass/Vol] 12.9 g/dL Normal 11.5-15.5 [facility] Comment on above: Order Comment: Speci men Type: BLOOD SPECIMENOrdering Facility: [facility] Address: [address] [place], [place] [id number] Performed By: #### 5 8410-2 ####[facility] LABIA [id number] [place] [address] [place] MCH (RBC) [Entitic mass] 30.6 pg Normal 26.0-34.0 [facility] Comment on above: Order Comment: Speci men Type: BLOOD SPECIMENOrdering Facility: [facility] Address: [address] [place], [place] [id number] Performed By: #### 5 8410-2 ####[facility] LABIA [id number] [address] [place] MCHC (RBC) [Mass/Vol] 30.7 g/dL Normal 30.5-36.0 [facility] Comment on above: Order Comment: Speci men Type: BLOOD SPECIMENOrdering Facility: [facility] Address: [address] [place], [place] [id number] Performed By: #### 5 8410-2 ####[facility] LABIA [id number] [place] [address] [place] MCV (RBC) [Entitic vol] 99.8 fL Normal 80.0-100.0 [facility] Comment on above: Order Comment: Speci men Type: BLOOD SPECIMENOrdering Facility: [facility] Address: [address] [place], [place] [id number] Performed By: #### 5 8410-2 ####[facility] LABIA [id number] [place] [address] [place] Nucleated RBC (Bld) [#/Vol] 10*3/uL Normal <0.01 [facility] Comment on above: Order Comment: Speci men Type: BLOOD SPECIMENOrdering Facility: [facility] Address: [address] [place], [place] [id number] Performed By: #### 5 8410-2 ####[facility] LABIA [id number] [place] [address] [place] Platelet mean volume (Bld) [Entitic vol] 11.7 fL Normal 9.0-12.7 [facility] Comment on above: Order Comment: Speci men Type: BLOOD SPECIMENOrdering Facility: [facility] Address: [address] [place], [place] [id number] Performed By: #### 5 8410-2 ####[facility] LABIA [id number] [place] [address] [place] Platelets (Bld) [#/Vol] 216 10*3/uL Normal 150-400 [facility] Comment on above: Order Comment: Speci men Type: BLOOD SPECIMENOrdering Facility: [facility] Address: [address] [place], [place] [id number] Performed By: #### 5 8410-2 ####[facility] LABIA [id number] [place] [address] [place] RBC (Bld) [#/Vol] 4.21 10*6/uL Normal 3.90-5.20 [facility] Comment on above: Order Comment: Speci men Type: BLOOD SPECIMENOrdering Facility: [facility] Address: [address] [id number] Performed By: #### 5 8410-2 ####[facility] LABIA [id number] [place] [address] [place] WBC (Bld) [#/Vol] 6.64 10*3/uL Normal 3.70-11.00 [facility] Comment on above: Order Comment: Speci men Type: BLOOD SPECIMENOrdering Facility: [facility] Address: [address] [id number] Performed By: #### 5 8410-2 ####[facility] LABCLIA [id number] [address] [place] CNOVon 06-24-2022 CNOV Office Visit (MARIWS ) LETTY LEON ([id number]) 1940 F Date Time Provider Department 06/24/22 8:20 AM GAVINO MELENDEZ During your visit today, we recorded the following information about you: Pulse Respiration Blood pressure Weight 73/minute 20/minute 120/74 82.6 kg Gavino Melendez MD 06/24/2022 12:10 PM Signed Chief Complaint Follow up HPI Letty Leon is a 82 year old female who presents here today for follow up. Pt here today for face to face visit per [facility] so that pt can continue with Physical Therapy. Getting PT for strengthening, it is helping her improve mobility. Anxiety/Depression - On Celexa 20 mg and Buspar 10 mg 1 tab po twice daily. Pt feels that she is doing OK, but at times not sure. Still has some anxiety. Appetite is improved/ Lipids - Stable on current regimen of Atorvastatin 20 mg once daily, without side effects. Monitoring weight. Stable eating meals that are cooked for her. Thyroid - Stable on current regimen of Levothyroxine 100 mcg once daily. Denies any missed dosages. Cardio - Follows with Dr. Zimmerman. Hx of Pacemaker placed in August. Denies any chest pain, sob or dizziness. Past medical history, appointments, medications, allergies reviewed. 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 VITAMIN D DEFICIENCY NOS 10/22/2008 Previous Surgical History PAST SURGICAL HISTORY Procedure Laterality Date APPENDECTOMY ARTHRP KNE CONDYLEANDPLATU MEDIALANDLAT COMPARTMENTS Right 08/16/2016 Knee replacement, total BIOPSY CERVIX SINGLE/MULT/EXCISION OF LESION SPX 87 BREAST BIOPSY MAMOTOME LEFT 07/27/05 right breast BREAST BIOPSY MAMOTOME LEFT 07/27/05 right breast BREAST FINE NEEDLE ASPIRATION 07/17/06 U/S FNA UOQ left breast lumpectomy site BX/EXC LYMPH NODE OPEN DEEP AXILLARY NODE 08/15/2005 RIGHT CARDIAC CATHETERIZATION HX 1998 CHOLECYSTECTOMY Cholecystectomy COLONOSCOPY - DIAGNOSTIC 06/27/87 COLONOSCOPY FLX DX W/COLLJ SPEC WHEN PFRMD 04/10/2006 Colonoscopy-repeat in CORRECT BUNION,SIMPLE DILATION AND CURETTAGE DXAND/THER NONOBSTETRIC Dilation AND curettage FNA WITH IMAGING 03/04/12 U/S FNA bilateral thyroid nodules FNA WITH IMAGING 03/16/12 U/S FNA left thyroid nodule HYSTERECTOMY HX 2007 TVH, USVVS, TOT INJ RADIOACTIVE TRACER FOR ID OF SENTINEL NODE 08/15/2005 RIGHT LAMINECTOMY,>2 SGMT,LUMBAR 10/26/2011 L2-5 decompression AND fusion LAPS ABD PRTMANDOMENTUM DX W/WO SPEC BR/WA SPX Laparoscopy excision of ovarian cyst LEFT HEART CATH,PERCUTANEOUS 04/27 LIG/TRNSXJ FLP TUBE ABDL/VAG APPR UNI/BI Tubal ligation MAMMOGRAM NEEDLE LOC LEFT 08/15/2005 RIGHT MASTECTOMY PARTIAL 08/15/2005 RIGHT PARATHYROIDECTOMY/EXPL ORATION PARATHYROIDS 04/16/12 PREOP PLACEMENT NEEDLE LOC 08/15/2005 RIGHT SIGMOIDOSCOPY FLX DX W/COLLJ SPEC BR/WA IF PFRMD 01/2000 Sigmoidoscopy, flexible THYROIDECTOMY TOTAL/COMPLETE 04/16/12 total Family History FAMILY HISTORY Problem Relation Age of Onset Breast Cancer Mother 37 Heart Father Breast Cancer Maternal Grandmother Diabetes Brother Colon Cancer Paternal Aunt Patient Allergies ALLERGIES Allergen Reactions Amoxicillin Hives Duricef [Cefadroxil] Hives Floxin [Ofloxacin] Hives Grass Pollen [place] Needle Oil Current Medications Current Outpatient Medications on File Prior to Visit Medication Sig busPIRone (BUSPAR) 10 mg tablet Take 1 tablet by mouth twice daily. atorvastatin (LIPITOR) 20 mg tablet Take 1 tablet by mouth once daily. citalopram (CELEXA) 20 mg tablet Take 1 tablet by mouth once daily. levothyroxine (LEVOXYL) 100 mcg tablet Take 1 tablet by mouth once daily. Take on empty stomach. 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 No current facility-administered medications on file prior to visit. Social History Social History Tobacco Use Smoking status: Never Smokeless tobacco: Never Vaping Use Vaping Use: Never used Substance Use Topics Alcohol use: No Drug use: No EXAM: There were no vitals taken for th (more content not included)... Normal [facility] Comprehensive metabolic 2000 panelon 06-24-2022 Albumin [Mass/Vol] 4.2 g/dL Normal 3.9-4.9 [facility] Comment on above: Order Comment: Speci men Type: BLOOD SPECIMENOrdering Facility: [facility] Address: [address] [place] [id number] Performed By: #### 3 016-3, 01674-8 ####[facility] LABCLIA [id number] [place] [address] [place] ALP [Catalytic activity/Vol] 123 U/L Normal 34-123 [facility] Comment on above: Order Comment: Speci men Type: BLOOD SPECIMENOrdering Facility: [facility] Address: [address] [place] [address] Performed By: #### 3 016-3, 76638-5 ####[facility] LABCLIA [id number] [place] [address] [place] ALT [Catalytic activity/Vol] 10 U/L Normal 7-38 [facility] Comment on above: Order Comment: Speci men Type: BLOOD SPECIMENOrdering Facility: [facility] Address: [address] [place] [address] Performed By: #### 3 016-3, ####[facility] LABCLIA [id number] [place] [address] [place] Anion gap [Moles/Vol] 14 mmol/L Normal 9-18 [facility] Comment on above: Order Comment: Speci men Type: BLOOD SPECIMENOrdering Facility: [facility] Address: [address] [place] [address] Performed By: #### 3 016-3, 63810-7 ####[facility] LABCLIA [id number] [place] [address] [place] AST [Catalytic activity/Vol] 22 U/L Normal 13-35 [facility] Comment on above: Order Comment: Speci men Type: BLOOD SPECIMENOrdering Facility: [facility] Address: [address] [place] [address] Performed By: #### 3 016-3, 40334-6 ####[facility] LABCLIA [id number] [place] [address] [place] Bilirubin [Mass/Vol] 0.7 mg/dL Normal 0.2-1.3 [facility] Comment on above: Order Comment: Speci men Type: BLOOD SPECIMENOrdering Facility: [facility] Address: [address] Performed By: #### 3 016-3, ####[facility] LABCLIA [id number] [place] [address] [place] Calcium [Mass/Vol] 9.3 mg/dL Normal 8.5-10.2 [facility] Comment on above: Order Comment: Speci men Type: BLOOD SPECIMENOrdering Facility: [facility] Address: [address] Performed By: #### 3 016-3, ####[facility] LABCLIA [id number] [place] [address] [place] Chloride [Moles/Vol] 104 mmol/L Normal 97-105 [facility] Comment on above: Order Comment: Speci men Type: BLOOD SPECIMENOrdering Facility: [facility] Address: [address] Performed By: #### 3 016-3, ####[facility] LABCLIA [id number] [place] [address] [place] CO2 [Moles/Vol] 24 mmol/L Normal 22-30 [facility] Comment on above: Order Comment: Speci men Type: BLOOD SPECIMENOrdering Facility: [facility] Address: [address] Performed By: #### 3 016-3, 64483-5 ####[facility] LABCLIA [id number] [place] [address] [place] Creatinine [Mass/Vol] 1.07 mg/dL High 0.58-0.96 [facility] Comment on above: Order Comment: Speci men Type: BLOOD SPECIMENOrdering Facility: [facility] Address: [address] Performed By: #### 3 016-3, 60634-2 ####[facility] LABCLIA [id number] [place] [address] [place] ESTIMATED GLOMERULAR FILTRATION RATE 52 mL/min/1.73m??? Low >=60 [facility] Comment on above: Order Comment: Hiwot garcia Type: BLOOD SPECIMENOrdering Facility: [facility] Address: [address] [place] [address] Result Comment: Billie mated Glomerular Filtration Rate (eGFR) is calculated using the 2020 CKD-EPI creatinine equation. This equation utilizes serum creatinine, sex, and age as parameters. The creatinine assay has traceable calibration to isotope dilution-mass spectrometry. Refer to KDIGO guidelines for clinical interpretation. In patients with unstable renal function, e.g. those with acute kidney injury, the eGFR may not accurately reflect actual GFR. Performed By: #### 3 016-3, 70915-3 ####[facility] LABCLIA [id number] [place] [address] [place] Glucose [Mass/Vol] 75 mg/dL Normal 74-99 [facility] Comment on above: Order Comment: Hiwot garcia Type: BLOOD SPECIMENOrdering Facility: [facility] Address: [address] [place] [address] Result Comment: The [place] Diabetes Association (ADA) provides guidance for cutoff values for fasting glucose and random glucose. The ADA defines fasting as no caloric intake for at least 8 hours. Fasting plasma glucose results between 100 to 125 mg/dL indicate increased risk for diabetes (prediabetes). Fasting plasma glucose results greater than or equal to 126 mg/dL meet the criteria for diagnosis of diabetes. In the absence of unequivocal hyperglycemia, results should be confirmed by repeat testing. In a patient with classic symptoms of hyperglycemia or hyperglycemic crisis, random plasma glucose results greater than or equal to 200 mg/dL meet the criteria for diagnosis of diabetes. Reference: Standards of Medical Care in Diabetes 2016, [place] Diabetes Association. Diabetes Care. 2016.39(Suppl 1). Performed By: #### 3 016-3, 88775-2 ####[facility] LABCLIA [id number] [place] [address] [place] Potassium [Moles/Vol] 4.2 mmol/L Normal 3.7-5.1 [facility] Comment on above: Order Comment: Speci men Type: BLOOD SPECIMENOrdering Facility: [facility] Address: [address] [place] [address] Performed By: #### 3 016-3, 73420-5 ####[facility] LABIA [id number] [place] [address] [place] Protein [Mass/Vol] 7.0 g/dL Normal 6.3-8.0 [facility] Comment on above: Order Comment: Speci men Type: BLOOD SPECIMENOrdering Facility: [facility] Address: [address] [place] [address] Performed By: #### 3 016-3, 92274-6 ####[facility] LABIA [id number] [place] [address] [place] Sodium [Moles/Vol] 142 mmol/L Normal 136-144 [facility] Comment on above: Order Comment: Speci men Type: BLOOD SPECIMENOrdering Facility: [facility] Address: [address] [place] [address] Performed By: #### 3 016-3, 43635-7 ####[facility] LABIA [id number] [place] [address] [place] Urea nitrogen [Mass/Vol] 14 mg/dL Normal 7-21 [facility] Comment on above: Order Comment: Speci men Type: BLOOD SPECIMENOrdering Facility: [facility] Address: [address] [place], [place] [address] Performed By: #### 3 016-3, 68291-9 ####[facility] LABCLIA [id number] [place] [address] [place] TSH SerPl-aCncon 10-29-2022 TSH Qn 0.595 m[IU]/L Normal 0.270-4.200 [facility] Comment on above: Order Comment: Speci men Type: BLOOD SPECIMENOrdering Facility: [facility] Address: [address] [facility] [place] [address] Performed By: #### 3 016-3, 78344-9 ####[facility] LABCLIA [id number] [id number] OF [facility] CNPNon 06-02-2022 CNPN Telephone (FAMPWS) LETTY LEON ([id number]) 1940 F Date Time Provider Department 06/02/22 [facility] During your visit today, we recorded the following information about you: Priyanka Hassan ALEXANDRA 06/02/2022 2:43 PM Signed Ray from [facility] [place] calling with PT plan of care, 2 visits weekly for 4 weeks, then 1 visit weekly for 4 weeks. Asking to have patient face to face appt moved sooner because of home health requirements, advised to have son call office to schedule appt. Gavino Melendez MD 06/06/2022 5:00 PM Signed Noted and agree MD Tanya Fraser Ma 06/07/2022 10:27 AM Signed Pt scheduled on Sunday06/24/22. Tanya Rojas Ma Allergies As of Date: 06/02/2022 Noted Allergy Reaction AMOXICILLIN 06/27/2005 4 - Hives DURICEF (CEFADROXIL) 06/27/2005 4 - Hives FLOXIN (OFLOXACIN) 06/27/2005 4 - Hives GRASS POLLEN 06/27/2005 PINE NEEDLE OIL 06/27/2005 Date Reviewed: 01/30/2022 Reviewed by: Emelia Rodriguez Ma - Fully Assessed Reason for Visit: face to face appt [Other] Prescriptions as of 06/07/2022 - busPIRone (BUSPAR) 10 mg tablet Take 1 tablet by mouth twice daily. - atorvastatin (LIPITOR) 20 mg tablet Take 1 tablet by mouth once daily. - citalopram (CELEXA) 20 mg tablet Take 1 tablet by mouth once daily. - levothyroxine (LEVOXYL) 100 mcg tablet Take 1 tablet by mouth once daily. Take on empty stomach. 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 Problem List As Of Date 06/02/2022 Noted Resolved DIFFUS CYSTIC MASTOPATHY [N60.19] 07/23/2006 SPASM OF MUSCLE [M62.838] 07/23/2006 GENITAL PROLAPSE [618] 07/23/2006 SPONDYLOS NOS W/O MYELOP [M47.9] Morbid obesity (HCC) [E66.01] 09/01/2019 Esophageal reflux [K21.9] 09/01/2019 MILTON HYPERT HRT/RENAL DIS [404.1] 07/23/2006 UNSP ABNORMAL MAMMOGRAM (Right) [R92.8] 07/25/2005 07/23/2006 BREAST CANCER UPPER OUTER (Right) [C50.419] 08/03/2005 02/22/2009 SEROMA, POST OP [HND4411] 09/19/2005 02/22/2009 Essential hypertension [I10] 07/23/2006 Syncope and collapse [R55] 02/01/2007 05/30/2016 Hyperlipidemia [E78.5] 11/24/2021 Malignant neoplasm of breast (female), unspecif* 09/01/2019 UTEROVAG PROLAPS-INCOMPL [N81.2] 05/15/2008 06/08/2008 Vitamin D deficiency [E55.9] 10/22/2008 Nontraumatic rupture of tendons of biceps (long*12/09/2008 Asymptomatic varicose veins [I83.90] 12/09/2008 09/01/2019 Low back pain [M54.50] 01/18/2010 09/01/2019 Neuritis of lower extremity [G57.90] 10/25/2010 Anxiety and depression [F41.9, F32.A] 05/30/2011 Osteopenia [M85.80] Blood glucose elevated [R73.9] 10/27/2011 09/01/2019 Lumbar stenosis [M48.061] 10/26/2011 Degenerative spondylolisthesis [M43.10] 10/26/2011 Hypokalemia [E87.6] 10/28/2011 09/01/2019 Multinodular goiter [E04.2] 02/27/2012 05/22/2012 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] 04/30/2012 09/01/2019 Hypothyroidism, iatrogenic [E03.2] 04/16/2012 Arthritis of knee [M17.10] 05/01/2014 09/01/2019 Chronic pain of both knees [M25.561, M25.562, G*06/27/2016 09/01/2019 Bilateral primary osteoarthritis of knee [M17.0]06/27/2016 Malignant neoplasm of female breast (HCC) [C50.*07/10/2016 09/01/2019 HLD (hyperlipidemia) [E78.5] 08/01/2016 Stage 3a chronic kidney disease (HCC) [N18.31] 08/01/2016 Aftercare following right knee joint replacemen*08/16/2016 09/01/2019 H/O amputation of lesser toe, left (HCC) [Z89.4*09/01/2019 History of breast cancer [Z85.3] 09/01/2019 Weight loss [R63.4] 11/03/2020 Dementia without behavioral disturbance (HCC) [*05/30/2021 Hypertensive kidney disease with stage 3a chron*11/24/2021 Encounter Status:Closed by TANYA ROJAS MA on 06/07/22 [facility] 05-30-2022 [place] Telephone (FAMPWS) LETTY LEON ([id number]) 1940 F Date Time Provider Department 05/30/22 GAVINO MELENDEZ During your visit today, we recorded the following information about you: Carey Bell LPN 05/30/2022 12:27 PM Signed Son Nima called to request orders be sent to [facility] for Physical Therapy. Pt has had them in the past. Nima states pt needs PT to help get her moving and walking. Pt had a knee replacement in the past and starting to get stiff. Please review and advise nima once the orders have been sent. [facility] PH [phone]. FAX: [phone] Carey Melendez MD 05/30/2022 3:44 PM Signed Home PT ordered MD Ancelmo Fraser MA 05/30/2022 3:57 PM Signed Order faxed to # given. Son notified. Ancelmo Garcias MA Allergies As of Date: 05/30/2022 Noted Allergy Reaction AMOXICILLIN 06/27/2005 4 - Hives DURICEF (CEFADROXIL) 06/27/2005 4 - Hives FLOXIN (OFLOXACIN) 06/27/2005 4 - Hives GRASS POLLEN 06/27/2005 PINE NEEDLE OIL 06/27/2005 Date Reviewed: 01/30/2022 Reviewed by: Emelia Rodriguez Ma - Fully Assessed Reason for Visit: Orders for physical therapy in home [Other] Cmt: orders to [facility] Primary Visit Diagnosis:Neuritis of lower extremity, unspecified laterality [G57.90] Other Visit Diagnoses:Generalized weakness [R53.1] Weakness of both lower extremities [R29.898] Status post total knee replacement, unspecified laterality [Z96.659] Order(s):[facility] [[id number]] Order #: [id number]: 1 Prescriptions as of 05/30/2022 - busPIRone (BUSPAR) 10 mg tablet Take 1 tablet by mouth twice daily. - atorvastatin (LIPITOR) 20 mg tablet Take 1 tablet by mouth once daily. - citalopram (CELEXA) 20 mg tablet Take 1 tablet by mouth once daily. - levothyroxine (LEVOXYL) 100 mcg tablet Take 1 tablet by mouth once daily. Take on empty stomach. 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 Problem List As Of Date 05/30/2022 Noted Resolved DIFFUS CYSTIC MASTOPATHY [N60.19] 07/23/2006 SPASM OF MUSCLE [M62.838] 07/23/2006 GENITAL PROLAPSE [618] 07/23/2006 SPONDYLOS NOS W/O MYELOP [M47.9] Morbid obesity (HCC) [E66.01] 09/01/2019 Esophageal reflux [K21.9] 09/01/2019 MILTON HYPERT HRT/RENAL DIS [404.1] 07/23/2006 UNSP ABNORMAL MAMMOGRAM (Right) [R92.8] 07/25/2005 07/23/2006 BREAST CANCER UPPER OUTER (Right) [C50.419] 08/03/2005 02/22/2009 SEROMA, POST OP [[id number]] 09/19/2005 02/22/2009 Essential hypertension [I10] 07/23/2006 Syncope and collapse [R55] 02/01/2007 05/30/2016 Hyperlipidemia [E78.5] 11/24/2021 Malignant neoplasm of breast (female), unspecif* 09/01/2019 UTEROVAG PROLAPS-INCOMPL [N81.2] 05/15/2008 06/08/2008 Vitamin D deficiency [E55.9] 10/22/2008 Nontraumatic rupture of tendons of biceps (long*12/09/2008 Asymptomatic varicose veins [I83.90] 12/09/2008 09/01/2019 Low back pain [M54.50] 01/18/2010 09/01/2019 Neuritis of lower extremity [G57.90] 10/25/2010 Anxiety and depression [F41.9, F32.A] 05/30/2011 Osteopenia [M85.80] Blood glucose elevated [R73.9] 10/27/2011 09/01/2019 Lumbar stenosis [M48.061] 10/26/2011 Degenerative spondylolisthesis [M43.10] 10/26/2011 Hypokalemia [E87.6] 10/28/2011 09/01/2019 Multinodular goiter [E04.2] 02/27/2012 05/22/2012 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] 04/30/2012 09/01/2019 Hypothyroidism, iatrogenic [E03.2] 04/16/2012 Arthritis of knee [M17.10] 05/01/2014 09/01/2019 Chronic pain of both knees [M25.561, M25.562, G*06/27/2016 09/01/2019 Bilateral primary osteoarthritis of knee [M17.0]06/27/2016 Malignant neoplasm of female breast (HCC) [C50.*07/10/2016 09/01/2019 HLD (hyperlipidemia) [E78.5] 08/01/2016 Stage 3a chronic kidney disease (HCC) [N18.31] 08/01/2016 Aftercare following right knee joint replacemen*08/16/2016 09/01/2019 H/O amputation of lesser toe, left (HCC) [Z89.4*09/01/2019 History of breast cancer [Z85.3] 09/01/2019 Weight loss [R63.4] 11/03/2020 Dementia without behavioral disturbance (HCC) [*05/30/2021 Hypertensive kidney disease with stage 3a chron*11/24/2021 Encounter Status:Closed by ANCELMO GARCIAS on 05/30/22 [facility] LETTY LEON ([id number]) 1940 F Date Time Provider Department 03/22/22 CARLYN BRIZUELA During your visit today, we recorded the following information about you: Priyanka Edouardanali MORRIS 03/22/2022 1:50 PM Signed Patient son Nima Leon calling asking for orders for home PT/OT. Patient had used [facility] previously. Patient is homebound, not very mobile. Son had called home health and was told needs order. Aware PCP is out of office, sending request to [employer] to review. Pending consult, needs diagnosis. Please advise Carlyn Brizuela APRN.CNP 03/22/2022 4:39 PM Signed Consults have been placed and signed. Thank you. Carlyn Brizuela APRN.CNP Allergies As of Date: 03/22/2022 Noted Allergy Reaction AMOXICILLIN 06/27/2005 4 - Hives DURICEF (CEFADROXIL) 06/27/2005 4 - Hives FLOXIN (OFLOXACIN) 06/27/2005 4 - Hives GRASS POLLEN 06/27/2005 PINE NEEDLE OIL 06/27/2005 Date Reviewed: 01/30/2022 Reviewed by: Emelia Rodriguez Ma - Fully Assessed Reason for Visit: Orders [681] Primary Visit Diagnosis:Generalized weakness [R53.1] Order(s):CONSULT TO PHYSICAL THERAPY [9032] Order #: [id number]: 1 FUTURE CONSULT TO PUMP PRESS OPERATOR [013476] Order #: [id number]: 1 FUTURE Prescriptions as of 03/22/2022 - busPIRone (BUSPAR) 10 mg tablet Take 1 tablet by mouth twice daily. - busPIRone (BUSPAR) 10 mg tablet Take 1 tablet by mouth twice daily. - atorvastatin (LIPITOR) 20 mg tablet Take 1 tablet by mouth once daily. - citalopram (CELEXA) 20 mg tablet Take 1 tablet by mouth once daily. - levothyroxine (LEVOXYL) 100 mcg tablet Take 1 tablet by mouth once daily. Take on empty stomach. 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 Problem List As Of Date 03/22/2022 Noted Resolved DIFFUS CYSTIC MASTOPATHY [N60.19] 07/23/2006 SPASM OF MUSCLE [M62.838] 07/23/2006 GENITAL PROLAPSE [618] 07/23/2006 SPONDYLOS NOS W/O MYELOP [M47.9] Morbid obesity (HCC) [E66.01] 09/01/2019 Esophageal reflux [K21.9] 09/01/2019 MILTON HYPERT HRT/RENAL DIS [404.1] 07/23/2006 UNSP ABNORMAL MAMMOGRAM (Right) [R92.8] 07/25/2005 07/23/2006 BREAST CANCER UPPER OUTER (Right) [C50.419] 08/03/2005 02/22/2009 SEROMA, POST OP [[id number]] 09/19/2005 02/22/2009 Essential hypertension [I10] 07/23/2006 Syncope and collapse [R55] 02/01/2007 05/30/2016 Hyperlipidemia [E78.5] 11/24/2021 Malignant neoplasm of breast (female), unspecif* 09/01/2019 UTEROVAG PROLAPS-INCOMPL [N81.2] 05/15/2008 06/08/2008 Vitamin D deficiency [E55.9] 10/22/2008 Nontraumatic rupture of tendons of biceps (long*12/09/2008 Asymptomatic varicose veins [I83.90] 12/09/2008 09/01/2019 Low back pain [M54.50] 01/18/2010 09/01/2019 Neuritis of lower extremity [G57.90] 10/25/2010 Anxiety and depression [F41.9, F32.A] 05/30/2011 Osteopenia [M85.80] Blood glucose elevated [R73.9] 10/27/2011 09/01/2019 Lumbar stenosis [M48.061] 10/26/2011 Degenerative spondylolisthesis [M43.10] 10/26/2011 Hypokalemia [E87.6] 10/28/2011 09/01/2019 Multinodular goiter [E04.2] 02/27/2012 05/22/2012 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] 04/30/2012 09/01/2019 Hypothyroidism, iatrogenic [E03.2] 04/16/2012 Arthritis of knee [M17.10] 05/01/2014 09/01/2019 Chronic pain of both knees [M25.561, M25.562, G*06/27/2016 09/01/2019 Bilateral primary osteoarthritis of knee [M17.0]06/27/2016 Malignant neoplasm of female breast (HCC) [C50.*07/10/2016 09/01/2019 HLD (hyperlipidemia) [E78.5] 08/01/2016 Stage 3a chronic kidney disease (HCC) [N18.31] 08/01/2016 Aftercare following right knee joint replacemen*08/16/2016 09/01/2019 H/O amputation of lesser toe, left (HCC) [Z89.4*09/01/2019 History of breast cancer [Z85.3] 09/01/2019 Weight loss [R63.4] 11/03/2020 Dementia without behavioral disturbance (HCC) [*05/30/2021 Hypertensive kidney disease with stage 3a chron*11/24/2021 Encounter Status:Closed by CARLYN BRIZUELA on 03/22/22 [facility] CNOVon 01-30-2022 CNOV Office Visit (FAMPWS ) CAROLYNLETTY En ([id number]) 1940 F Date Time Provider Department 01/30/22 1:20 PM GAVINO MELENDEZ During your visit today, we recorded the following information about you: Pulse Respiration Blood pressure 68/minute 16/minute 118/74 Gavino Melendez MD 01/30/2022 3:26 PM Signed Chief Complaint Patient presents with: Follow Up HPI Letty Gatica Carolyn is a 81 year old female who presents here today for a 2 month follow up. Pt here today with her son, Nima for a 2 month follow up. Nima is pt's Caregiver. ? Anxiety/Depression - At previous OV pt's Celexa was decreased from 40 mg to 20 mg and Buspar 10 mg 1 tab po twice daily was added due to Nima noticing no improvement on previous regimen. Pt feels that she is doing better, but at times not sure. Feels she is doing better then when she was here last. ? Lipids - Stable on current regimen of Atorvastatin 20 mg once daily, without side effects. Monitoring weight. Stable eating meals that are cooked for her. ? Thyroid - Stable on current regimen of Levothyroxine 100 mcg once daily. Denies any missed dosages. ? Cardio - Follows with Dr. Zimmerman. Hx of Pacemaker placed in August. Denies any chest pain, sob or dizziness. Nima notes that his daughter found a sore, near groin area/diaper area. This was not their on Sunday, requested to have this checked. Pt notes that she does a good job taking care of her. HM - Adv Dir/Living Will scanned. Past medical history, appointments, medications, allergies reviewed. 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 - VITAMIN D DEFICIENCY NOS 10/22/2008 Previous Surgical History PAST SURGICAL HISTORY Procedure Laterality Date - APPENDECTOMY - ARTHRP KNE CONDYLEANDPLATU MEDIALANDLAT COMPARTMENTS Right 08/16/2016 Knee replacement, total - BIOPSY CERVIX SINGLE/MULT/EXCISION OF LESION SPX 87 - BREAST BIOPSY MAMOTOME LEFT 07/27/05 right breast - BREAST BIOPSY MAMOTOME LEFT 07/27/05 right breast - BREAST FINE NEEDLE ASPIRATION 07/17/06 U/S FNA UOQ left breast lumpectomy site - BX/EXC LYMPH NODE OPEN DEEP AXILLARY NODE 08/15/2005 RIGHT - CARDIAC CATHETERIZATION HX 1998 - CHOLECYSTECTOMY Cholecystectomy - COLONOSCOPY - DIAGNOSTIC 06/27/87 - COLONOSCOPY FLX DX W/COLLJ SPEC WHEN PFRMD 04/10/2006 Colonoscopy-repeat in - CORRECT BUNION,SIMPLE - DILATION AND CURETTAGE DXAND/THER NONOBSTETRIC Dilation AND curettage - FNA WITH IMAGING 03/04/12 U/S FNA bilateral thyroid nodules - FNA WITH IMAGING 03/16/12 U/S FNA left thyroid nodule - HYSTERECTOMY HX 2007 TVH, USVVS, TOT - INJ RADIOACTIVE TRACER FOR ID OF SENTINEL NODE 08/15/2005 RIGHT - LAMINECTOMY,>2 SGMT,LUMBAR 10/26/2011 L2-5 decompression AND fusion - LAPS ABD PRTMANDOMENTUM DX W/WO SPEC BR/WA SPX Laparoscopy excision of ovarian cyst - LEFT HEART CATH,PERCUTANEOUS 04/27 - LIG/TRNSXJ FLP TUBE ABDL/VAG APPR UNI/BI Tubal ligation - MAMMOGRAM NEEDLE LOC LEFT 08/15/2005 RIGHT - MASTECTOMY PARTIAL 08/15/2005 RIGHT - PARATHYROIDECTOMY/EXPL ORATION PARATHYROIDS 04/16/12 - PREOP PLACEMENT NEEDLE LOC 08/15/2005 RIGHT - SIGMOIDOSCOPY FLX DX W/COLLJ SPEC BR/WA IF PFRMD 01/2000 Sigmoidoscopy, flexible - THYROIDECTOMY TOTAL/COMPLETE 04/16/12 total Family History FAMILY HISTORY Problem Relation Age of Onset - Breast Cancer Mother 37 - Heart Father - Breast Cancer Maternal Grandmother - Diabetes Brother - Colon Cancer Paternal Aunt Patient Allergies ALLERGIES Allergen Reactions - Amoxicillin Hives - Duricef [Cefadroxil] Hives - Floxin [Ofloxacin] Hives - Grass Pollen - [place] Needle Oil Current Medications Current Outpatient Medications on File Prior to Visit Medication Sig - atorvastatin (LIPITOR) 20 mg tablet Take 1 tablet by mouth once daily. - citalopram (CELEXA) 20 mg tablet Take 1 tablet by mouth once daily. - levothyroxine (LEVOXYL) 100 mcg tablet Take 1 tablet by mouth once daily. Take on empty stomach. For Thyroid - busPIRone (BUSPAR) 10 mg tablet Take 1 tablet by mouth twice daily. - COMPOUNDED PRESCRIPTION Powerstep orthotics (L85.9) Hyperkeratosis (primary encounter diagnosis) (M20.12) Acquired hallux valgus of left foot (M12.9) Arthropathy (more content not included)... Normal [facility] Comprehensive metabolic 2000 panelon 01-25-2022 Albumin [Mass/Vol] 4.5 g/dL Normal 3.9-4.9 [facility] Comment on above: Order Comment: Speci men Type: BLOOD SPECIMENOrdering Facility: [facility] Address: [address] [place] [address] Performed By: #### L DANGELO, 3015-3, ####[facility] LABCLIA [id number] [place] [address] [place] ALP [Catalytic activity/Vol] 113 U/L Normal 34-123 [facility] Comment on above: Order Comment: Speci men Type: BLOOD SPECIMENOrdering Facility: [facility] Address: [address] [place] [address] Performed By: #### L DANGELO, 3015-3, ####[facility] LABCLIA [id number] [place] [address] [place] ALT [Catalytic activity/Vol] 11 U/L Normal 7-38 [facility] Comment on above: Order Comment: Speci men Type: BLOOD SPECIMENOrdering Facility: [facility] Address: [address] [place] [address] Performed By: #### L DANGELO, 3015-10, ####[facility] LABCLIA [id number] [place] [address] [place] Anion gap [Moles/Vol] 10 mmol/L Normal 9-18 [facility] Comment on above: Order Comment: Speci men Type: BLOOD SPECIMENOrdering Facility: [facility] Address: [address] [place] [address] Performed By: #### L DANGELO, 3, ####[facility] LABCLIA [id number] [place] [id number] [place] AST [Catalytic activity/Vol] 20 U/L Normal 13-35 [facility] Comment on above: Order Comment: Speci men Type: BLOOD SPECIMENOrdering Facility: [facility] Address: [address] [place], [place] [address] Performed By: #### L CLINTB, 3015-3, 32961-8 ####[facility] LABCLIA [id number] [place] [id number] [place] Bilirubin [Mass/Vol] 0.5 mg/dL Normal 0.2-1.3 [facility] Comment on above: Order Comment: Speci men Type: BLOOD SPECIMENOrdering Facility: [facility] Address: [address] [place] [address] Performed By: #### L CLINTB, 3015-3, ####[facility] LABCLIA [id number] [place] [address] [place] Calcium [Mass/Vol] 9.7 mg/dL Normal 8.5-10.2 [facility] Comment on above: Order Comment: Speci men Type: BLOOD SPECIMENOrdering Facility: [facility] Address: [address] [place] [address] Performed By: #### Esvin JARAMILLOB, 3015-3, ####[facility] LABCLIA [id number] [place] [address] [place] Chloride [Moles/Vol] 106 mmol/L High 97-105 [facility] Comment on above: Order Comment: Speci men Type: BLOOD SPECIMENOrdering Facility: [facility] Address: [address] [place] [phone] Performed By: #### L IPB, 3015-3, 69722-5 ####[facility] LABCLIA [id number] [place] [id number] [place] CO2 [Moles/Vol] 27 mmol/L Normal 22-30 [facility] Comment on above: Order Comment: Speci men Type: BLOOD SPECIMENOrdering Facility: [facility] Address: [address] [place], [place] [phone] Performed By: #### L IPB, 6-3, 88665-3 ####[facility] LABCLIA [id number] [address] [place] Creatinine [Mass/Vol] 1.11 mg/dL High 0.58-0.96 [facility] Comment on above: Order Comment: Hiwot garcia Type: BLOOD SPECIMENOrdering Facility: [facility] Address: [address] [place], [place] [address] Performed By: #### L IPB, 6-3, 70320-7 ####[facility] LABIA [id number] [address] [place] ESTIMATED GLOMERULAR FILTRATION RATE 50 mL/min/1.73m??? Low >=60 [facility] Comment on above: Order Comment: Hiwot garcia Type: BLOOD SPECIMENOrdering Facility: [facility] Address: [address] [place], [place] [address] Result Comment: Billie mated Glomerular Filtration Rate (eGFR) is calculated using the 2020 CKD-EPI creatinine equation. This equation utilizes serum creatinine, sex, and age as parameters. The creatinine assay has traceable calibration to isotope dilution-mass spectrometry. Refer to KDIGO guidelines for clinical interpretation. In patients with unstable renal function, e.g. those with acute kidney injury, the eGFR may not accurately reflect actual GFR. Performed By: #### L IPB, 6-3, ####[facility] LABCLIA [id number] [place] [id number] [place] Glucose [Mass/Vol] 102 mg/dL High 74-99 [facility] Comment on above: Order Comment: Hiwot garcia Type: BLOOD SPECIMENOrdering Facility: [facility] Address: [address] [place], [place] [address] Result Comment: The [place] Diabetes Association (ADA) provides guidance for cutoff values for fasting glucose and random glucose. The ADA defines fasting as no caloric intake for at least 8 hours. Fasting plasma glucose results between 100 to 125 mg/dL indicate increased risk for diabetes (prediabetes). Fasting plasma glucose results greater than or equal to 126 mg/dL meet the criteria for diagnosis of diabetes. In the absence of unequivocal hyperglycemia, results should be confirmed by repeat testing. In a patient with classic symptoms of hyperglycemia or hyperglycemic crisis, random plasma glucose results greater than or equal to 200 mg/dL meet the criteria for diagnosis of diabetes. Reference: Standards of Medical Care in Diabetes 2016, [place] Diabetes Association. Diabetes Care. 2016.39(Suppl 1). Performed By: #### L IPB, 3015-3, ####[facility] LABCLIA [id number] [place] [address] [place] Potassium [Moles/Vol] 4.7 mmol/L Normal 3.7-5.1 [facility] Comment on above: Order Comment: Speci men Type: BLOOD SPECIMENOrdering Facility: [facility] Address: [address] [place], [place] [address] Performed By: #### L IPB, 3015-10, ####[facility] LABCLIA [id number] [place] [address] [place] Protein [Mass/Vol] 7.0 g/dL Normal 6.3-8.0 [facility] Comment on above: Order Comment: Speci men Type: BLOOD SPECIMENOrdering Facility: [facility] Address: [address] [place], [place] [address] Performed By: #### L IPB, 3015-10, ####[facility] LABCLIA [id number] [place] [address] [place] Sodium [Moles/Vol] 143 mmol/L Normal 136-144 [facility] Comment on above: Order Comment: Speci men Type: BLOOD SPECIMENOrdering Facility: [facility] Address: [address] [place] [address] Performed By: #### L IPB, 3015-10, ####[facility] LABCLIA [id number] [place] [address] [place] Urea nitrogen [Mass/Vol] 24 mg/dL High 7-21 [facility] Comment on above: Order Comment: Speci men Type: BLOOD SPECIMENOrdering Facility: [facility] Address: [address] [place] [address] Performed By: #### L CLINTB, 3016-3, 19709-5 ####[facility] LABCLIA [id number] [place] [id number] [place] LIPID PANEL BASICon 01-26-20 22 Cholesterol [Mass/Vol] 154 mg/dL Normal <200 [facility] Comment on above: Order Comment: Speci men Type: BLOOD SPECIMENOrdering Facility: [facility] Address: [address] [place] [address] Result Comment: <200 mg/dL, Desirable 200-239 mg/dL, Borderline high >239 mg/dL, High Performed By: #### L CLINTB, 3016-3, 12047-7 ####[facility] LABCLIA [id number] [place] [address] [place] Cholesterol in HDL [Mass/Vol] 64 mg/dL Normal >39 [facility] Comment on above: Order Comment: Speci men Type: BLOOD SPECIMENOrdering Facility: [facility] Address: [address] [place], [place] [address] Result Comment: 40-5 9 mg/dL, Acceptable >59 mg/dL, High: Negative risk factor for coronary heart disease <40 mg/dL, Low: Positive risk factor for coronary heart disease Performed By: #### L CLINTB, 3016-3, 16323-5 ####[facility] LABCLIA [id number] [address] [place] Cholesterol in LDL [Mass/Vol] 76 mg/dL Normal <100 [facility] Comment on above: Order Comment: Speci men Type: BLOOD SPECIMENOrdering Facility: [facility] Address: [address] [place], [place] [address] Result Comment: <100 mg/dL, Optimal 100-129 mg/dL, Near optimal/above optimal 130-159 mg/dL, Borderline high 160-189 mg/dL, High >189 mg/dL, Very high Secondary prevention optimal LDL Cholesterol levels are recommended to be < 70 mg/dL Performed By: #### L DANGELO, 6-3, 26637-7 ####[facility] LABCLIA [id number] [place] [address] [place] Cholesterol in LDL/Cholesterol in HDL [Mass ratio] 1.19 {ratio} Normal <2.54 [facility] Comment on above: Order Comment: Speci men Type: BLOOD SPECIMENOrdering Facility: [facility] Address: [address] [place] [address] Result Comment: Refe rence: 1. National Cholesterol Education Program ATP III Guideline At-A-Glance Quick Desk Reference: National Heart, Lung, and Blood [place]. National Institutes of Health. 2001: NIH Publication No. 01-3305. 2. An International Atherosclerosis Society position paper: global recommendations for the management of dyslipidemia: executive summary, Atherosclerosis. 2014: 232(2):410-413. Performed By: #### L DANGELO, 3015-, ####[facility] LABCLIA [id number] [place] [address] [place] Cholesterol in VLDL [Mass/Vol] 14 mg/dL Normal <30 [facility] Comment on above: Order Comment: Speci men Type: BLOOD SPECIMENOrdering Facility: [facility] Address: [address] Performed By: #### L DANGELO, 3015-3, ####[facility] LABCLIA [id number] [facility] [place] [address] [place] Cholesterol non HDL [Mass/Vol] 90 mg/dL Normal <130 [facility] Comment on above: Order Comment: Speci men Type: BLOOD SPECIMENOrdering Facility: [facility] Address: [address] [place] [address] Result Comment: <130 mg/dL, Optimal 130-159 mg/dL, Near optimal/above optimal 160-189 mg/dL, Borderline high 190-219 mg/dL, High >219 mg/dL, Very high Secondary prevention optimal non HDL Cholesterol levels are recommended to be <100 mg/dL Performed By: #### L DANGELO, 6-3, 61387-6 ####[facility] LABCLIA [id number] [place] [address] [place] Cholesterol.total/Choles terol in HDL [Mass ratio] 2.41 {ratio} Normal <5.10 [facility] Comment on above: Order Comment: Speci men Type: BLOOD SPECIMENOrdering Facility: [facility] Address: [address] [place] [address] Performed By: #### Esvin PIERSON, 3, ####[facility] LABCLIA [id number] [address] STATES OF [facility] FASTING TIME 14 hrs Normal [facility] Comment on above: Order Comment: Speci men Type: BLOOD SPECIMENOrdering Facility: [facility] Address: [address] [place] [address] Performed By: #### Esvin PIERSON, 3, ####[facility] LABCLIA [id number] [address] OF [facility] Triglyceride [Mass/Vol] 68 mg/dL Normal <150 [facility] Comment on above: Order Comment: Speci men Type: BLOOD SPECIMENOrdering Facility: [facility] Address: [address] [place], [place] [address] Result Comment: <150 mg/dL, Normal 150-199 mg/dL, Borderline high 200-499 mg/dL, High >499 mg/dL, Very high Performed By: #### L DANGELO, 3015-3, ####[facility] LABCLIA [id number] [place] [id number] [place] TSH SerPl-aCncon 01-25-2022 TSH Qn 0.238 m[IU]/L Low 0.270-4.200 [facility] Comment on above: Order Comment: Speci men Type: BLOOD SPECIMENOrdering Facility: [facility] Address: [address] [place] [address] Performed By: #### L IP, 3016-3, 75806-6 ####[facility] LABIA [id number] [address] [place] CNOVon 11-28-2021 CNOV Office Visit (MARIWS ) LETTY LEON ([id number]) 1940 F Date Time Provider Department 11/28/21 3:40 PM GAVINO MELENDEZ During your visit today, we recorded the following information about you: Pulse Respiration Blood pressure Weight 60/minute 20/minute 114/72 80.6 kg Gavino Melendez MD 11/28/2021 5:33 PM Signed Chief Complaint Patient presents with: F/U 3 Month HPI Letty Gatica Carolyn is a 81 year old female who presents here today for a 3 month follow up. Pt here today for a 3 month follow up. Pt here today with her son, Nima who lives with her. Anxiety/Depression - On current regimen of Celexa 40 mg once daily. Pt son, Nima states that he's not really noticed any difference with the medication compared to Paxil. Pt still depressed, crying spells intermittently through out the day with episodes of anxiety. This was changed at the [facility], they said she did better with this. Lipids - Stable on current regimen of Atorvastatin 20 mg once daily. Monitoring weight. Stable eating meals that are cooked. Thyroid - Stable on current regimen of Levothyroxine 100 mcg once daily. Denies any missed dosages. Pt was having pacemaker placed by Dr. Zimmerman in September 25, 2021. States that everything has been doing good. Had two checks over there. Past medical history, appointments, medications, allergies reviewed. 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 - VITAMIN D DEFICIENCY NOS 10/22/2008 Previous Surgical History PAST SURGICAL HISTORY Procedure Laterality Date - APPENDECTOMY - ARTHRP KNE CONDYLEANDPLATU MEDIALANDLAT COMPARTMENTS Right 08/16/2016 Knee replacement, total - BIOPSY CERVIX SINGLE/MULT/EXCISION OF LESION SPX 87 - BREAST BIOPSY MAMOTOME LEFT 07/27/05 right breast - BREAST BIOPSY MAMOTOME LEFT 07/27/05 right breast - BREAST FINE NEEDLE ASPIRATION 07/17/06 U/S FNA UOQ left breast lumpectomy site - BX/EXC LYMPH NODE OPEN DEEP AXILLARY NODE 08/15/2005 RIGHT - CARDIAC CATHETERIZATION HX 1998 - CHOLECYSTECTOMY Cholecystectomy - COLONOSCOPY - DIAGNOSTIC 06/27/87 - COLONOSCOPY FLX DX W/COLLJ SPEC WHEN PFRMD 04/10/2006 Colonoscopy-repeat in - CORRECT BUNION,SIMPLE - DILATION AND CURETTAGE DXAND/THER NONOBSTETRIC Dilation AND curettage - FNA WITH IMAGING 03/04/12 U/S FNA bilateral thyroid nodules - FNA WITH IMAGING 03/16/12 U/S FNA left thyroid nodule - HYSTERECTOMY HX 2007 TVH, USVVS, TOT - INJ RADIOACTIVE TRACER FOR ID OF SENTINEL NODE 08/15/2005 RIGHT - LAMINECTOMY,>2 SGMT,LUMBAR 10/26/2011 L2-5 decompression AND fusion - LAPS ABD PRTMANDOMENTUM DX W/WO SPEC BR/WA SPX Laparoscopy excision of ovarian cyst - LEFT HEART CATH,PERCUTANEOUS 04/27 - LIG/TRNSXJ FLP TUBE ABDL/VAG APPR UNI/BI Tubal ligation - MAMMOGRAM NEEDLE LOC LEFT 08/15/2005 RIGHT - MASTECTOMY PARTIAL 08/15/2005 RIGHT - PARATHYROIDECTOMY/EXPL ORATION PARATHYROIDS 04/16/12 - PREOP PLACEMENT NEEDLE LOC 08/15/2005 RIGHT - SIGMOIDOSCOPY FLX DX W/COLLJ SPEC BR/WA IF PFRMD 01/2000 Sigmoidoscopy, flexible - THYROIDECTOMY TOTAL/COMPLETE 04/16/12 total Family History FAMILY HISTORY Problem Relation Age of Onset - Breast Cancer Mother 37 - Heart Father - Breast Cancer Maternal Grandmother - Diabetes Brother - Colon Cancer Paternal Aunt Patient Allergies ALLERGIES Allergen Reactions - Amoxicillin Hives - Duricef [Cefadroxil] Hives - Floxin [Ofloxacin] Hives - Grass Pollen - [place] Needle Oil Current Medications Current Outpatient Medications on File Prior to Visit Medication Sig - citalopram (CELEXA) 40 mg tablet Take 1 tablet by mouth once daily. - levothyroxine (LEVOXYL) 100 mcg tablet Take 1 tablet by mouth once daily. Take on empty stomach. For Thyroid - atorvastatin (LIPITOR) 20 mg tablet Take 1 tablet by mouth once daily. - COMPOUNDED PRESCRIPTION Powerstep orthotics (L85.9) Hyperkeratosis (primary encounter diagnosis) (M20.12) Acquired hallux valgus of left foot (M12.9) Arthropathy - naproxen sodium (ALEVE) 220 mg tablet Take 220 mg by mouth twice daily with meals. (Patient not taking: Reported on 09/16/2021 ) - Cholecalciferol, Vitamin D3, (VITAMIN D) 1,000 unit cap Take 1,000 Units by mouth once daily. No current facility-adm (more content not included)... Normal [facility] COVID-19 virus antigen assay SARS-CoV-2 (COVID-19) Ag IA.rapid Ql (Resp) [facility] Work Phone: Culture, urine Bacteria identified Cx Nom (U) Escherichia coli [facility] Work Phone: Vital Signs Date Time Vital Sign Value Performing Clinician Faci lity 10-30-2024 10:15-0500 Body height 175.[address] Ifrah Baker MD [facility] 10-30-2024 10:15-0500 Body mass index (BMI) [Ratio] 32 kg/m2 Dr. Ifrah Baker MD [facility] 10-30-2024 10:15-0500 Body weight 98.[address] Ifrah Baker MD [facility] 10-30-2024 10:15-0500 Diastolic blood pressure 79 mm[Hg] Dr. Ifrah Baker MD [facility] 10-30-2024 10:15-0500 Heart rate 60 /min Dr. Ifrah Baker MD [facility] 10-30-2024 10:15-0500 Respiratory rate 18 /min Dr. Ifrah Baker MD [facility] 10-30-2024 10:15-0500 Systolic blood pressure 117 mm[Hg] Dr. Ifrah Baker MD [facility] 10-29-2023 10:14-0500 Body height 175.[address] Ifrah Baker [facility] 10-29-2023 10:14-0500 Body mass index (BMI) [Ratio] 31 kg/m2 Dr. Ifrah Baker [facility] 10-29-2023 10:14-0500 Body weight 95.[address] Ifrah Baker [facility] 10-29-2023 10:14-0500 Diastolic blood pressure 77 mm[Hg] Dr. Ifrah Baker [facility] 10-29-2023 10:14-0500 Heart rate 60 /min Dr. Ifrah Baker [facility] 10-29-2023 10:14-0500 Respiratory rate 18 /min Dr. Ifrah Baker [facility] 10-29-2023 10:14-0500 SaO2% (BldA) [Mass fraction] 95 % Dr. Ifrah Baker [facility] 10-29-2023 10:14-0500 Systolic blood pressure 123 mm[Hg] Dr. Ifrah Baker [facility] 05-29-2023 22:47-0400 Diastolic blood pressure 76 mm[Hg] [facility] 05-29-2023 22:47-0400 Heart rate 64 /min [facility] 05-29-2023 22:47-0400 Respiratory rate 14 /min [facility] 05-29-2023 22:47-0400 SaO2% (BldA) [Mass fraction] 98 % [facility] 05-29-2023 22:47-0400 Systolic blood pressure 115 mm[Hg] [facility] 05-29-2023 20:04-0400 Body height 175.26 cm [facility] 05-29-2023 20:04-0400 Body mass index (BMI) [Ratio] 31.4 kg/m2 [facility] 05-29-2023 20:04-0400 Body temperature 97.6 [degF] [facility] 05-29-2023 20:04-0400 Body weight 96.4 kg [facility] 03-02-2023 01:05-0400 Diastolic blood pressure 77 mm[Hg] [facility] 03-02-2023 01:05-0400 Heart rate 62 /min [facility] 03-02-2023 01:05-0400 Respiratory rate 16 /min [facility] 03-02-2023 01:05-0400 SaO2% (BldA) [Mass fraction] 97 % [facility] 03-02-2023 01:05-0400 Systolic blood pressure 129 mm[Hg] [facility] 03-01-2023 19:50-0400 Body height 175.26 cm [facility] 03-01-2023 19:50-0400 Body mass index (BMI) [Ratio] 27 kg/m2 [facility] 03-01-2023 19:50-0400 Body temperature 96.8 [degF] [facility] 03-01-2023 19:50-0400 Body weight 83.1 kg [facility] 09-07-2022 14:32-0500 Diastolic blood pressure 62 mm[Hg] Gavino Melendez MD Work Phone: [facility] 09-07-2022 14:32-0500 Heart rate 60 /min Gavino Melendez MD Work Phone: [facility] 09-07-2022 14:32-0500 Respiratory rate 16 /min Gavino Melendez MD Work Phone: [facility] 09-07-2022 14:32-0500 Systolic blood pressure 94 mm[Hg] Gavino Melendez MD Work Phone: [facility] 08-16-2022 17:03-0500 Body temperature 98 [degF] Dr. Gavino Melendez Work Phone: [facility] 08-16-2022 17:03-0500 Diastolic blood pressure 84 mm[Hg] Dr. Gavino Melendez Work Phone: [facility] 08-16-2022 17:03-0500 Heart rate 57 /min Dr. Gavino Melendez Work Phone: [facility] 08-16-2022 17:03-0500 Respiratory rate 20 /min Dr. Gavino Melendez Work Phone: [facility] 08-16-2022 17:03-0500 SaO2% (BldA) [Mass fraction] 95 % Dr. Gavino Melendez Work Phone: [facility] 08-16-2022 17:03-0500 Systolic blood pressure 110 mm[Hg] Dr. Gavino Melendez Work Phone: [facility] 08-15-2022 13:46-0500 Body height 175.[address] Gavino Melendez Work Phone: [facility] 08-15-2022 13:46-0500 Body weight 82.[address] Gavino Melendez Work Phone: [facility] 08-14-2022 19:35-0500 Body mass index (BMI) [Ratio] 26.9 kg/m2 Dr. Gavino Melendez Work Phone: [facility] 08-14-2022 19:03-0500 Body temperature 97 [degF] Dr. Gavino Melendez Work Phone: [facility] Work Phone: 08-14-2022 19:03-0500 Diastolic blood pressure 79 mm[Hg] Dr. Gavino Melendez Work Phone: [facility] Work Phone: 08-14-2022 19:03-0500 Heart rate 76 /min Dr. Gaivno Melendez Work Phone: [facility] Work Phone: 08-14-2022 19:03-0500 Respiratory rate 20 /min Dr. Gavino Melendez Work Phone: [facility] Work Phone: 08-14-2022 19:03-0500 SaO2% (BldA) [Mass fraction] 97 % Dr. Gavino Melendez Work Phone: [facility] Work Phone: 08-14-2022 19:03-0500 Systolic blood pressure 123 mm[Hg] Dr. Gavino Melendez Work Phone: [facility] Work Phone: 08-14-2022 13:55-0500 Body height 175.[address] Gavino Melendez Work Phone: [facility] Work Phone: 08-14-2022 13:55-0500 Body mass index (BMI) [Ratio] 26.9 kg/m2 Dr. Gavino Melendez Work Phone: [facility] Work Phone: 08-14-2022 13:55-0500 Body weight 82.[address] Gavino Melendez Work Phone: [facility] Work Phone: 08-14-2022 13:42-0500 Diastolic blood pressure 44 mm[Hg] Jaren Montes APRN.FIELD TECHNICAL ASSISTANT Work Phone: [facility] 08-14-2022 13:42-0500 Systolic blood pressure 76 mm[Hg] Jaren Montes APRN.FIELD TECHNICAL ASSISTANT Work Phone: [facility] 08-14-2022 13:28-0500 Body temperature 98.6 [degF] Jaren Roe MATCHBOOK MAKER.FIELD TECHNICAL ASSISTANT Work Phone: [facility] 08-14-2022 13:28-0500 Body weight 82.56 kg Jaren Roe MATCHBOOK MAKER.FIELD TECHNICAL ASSISTANT Work Phone: [facility] 08-14-2022 13:28-0500 Heart rate 78 /min Jaren Roe MATCHBOOK MAKER.FIELD TECHNICAL ASSISTANT Work Phone: [facility] 08-14-2022 13:28-0500 Respiratory rate 24 /min Jaren Roe MATCHBOOK MAKER.FIELD TECHNICAL ASSISTANT Work Phone: [facility] 08-14-2022 13:28-0500 SaO2% (BldA) [Mass fraction] 97 % Jaren Roe MATCHBOOK MAKER.FIELD TECHNICAL ASSISTANT Work Phone: [facility] 06-24-2022 08:24-0400 Body weight 82.56 kg Gavino Melendez MD Work Phone: [facility] 06-24-2022 08:24-0400 Diastolic blood pressure 74 mm[Hg] Gavino Melendez MD Work Phone: [facility] 06-24-2022 08:24-0400 Heart rate 73 /min Gavino Melendez MD Work Phone: [facility] 06-24-2022 08:24-0400 Respiratory rate 20 /min Gavino Melendez MD Work Phone: [facility] 06-24-2022 08:24-0400 SaO2% (BldA) [Mass fraction] 98 % Gavino Melendez MD Work Phone: [facility] 06-24-2022 08:24-0400 Systolic blood pressure 120 mm[Hg] Gavino Melendez MD Work Phone: [facility] 05-27-2022 13:32-0400 Body height 175.[address] Gavino Melendez Work Phone: [facility] Work Phone: 05-27-2022 13:32-0400 Body mass index (BMI) [Ratio] 25.1 kg/m2 Dr. Gavino Melendez Work Phone: [facility] 05-27-2022 13:32-0400 Body temperature 97.8 [degF] Dr. Gavino Melendez Work Phone: [facility] 05-27-2022 13:32-0400 Body weight 77.[address] Gavino Melendez Work Phone: [facility] 05-27-2022 13:32-0400 Diastolic blood pressure 67 mm[Hg] Dr. Gavino Melendez Work Phone: [facility] 05-27-2022 13:32-0400 Heart rate 64 /min Dr. Gavino Melendez Work Phone: [facility] 05-27-2022 13:32-0400 Respiratory rate 18 /min Dr. Gavino Melendez Work Phone: [facility] 05-27-2022 13:32-0400 SaO2% (BldA) [Mass fraction] 97 % Dr. Gavino Melendez Work Phone: [facility] 05-27-2022 13:32-0400 Systolic blood pressure 126 mm[Hg] Dr. Gavino Melendez Work Phone: [facility] 01-30-2022 13:24-0400 Diastolic blood pressure 74 mm[Hg] Gavino Melendez MD Work Phone: [facility] 01-30-2022 13:24-0400 Heart rate 68 /min Gavino Melendez MD Work Phone: [facility] 01-30-2022 13:24-0400 Respiratory rate 16 /min Gavino Melendez MD Work Phone: [facility] 01-30-2022 13:24-0400 Systolic blood pressure 118 mm[Hg] Gavino Melendez MD Work Phone: [facility] 11-28-2021 15:50-0400 Body weight 80.65 kg Gavino Melendez MD Work Phone: [facility] 11-28-2021 15:50-0400 Diastolic blood pressure 72 mm[Hg] Gavino Melendez MD Work Phone: [facility] 11-28-2021 15:50-0400 Heart rate 60 /min Gavino Melendez MD Work Phone: [facility] 11-28-2021 15:50-0400 Respiratory rate 20 /min Gavino Melendez MD Work Phone: [facility] 11-28-2021 15:50-0400 Systolic blood pressure 114 mm[Hg] Gavino Melendez MD Work Phone: [facility] Encounters Encounter Date Encounter Type Care Provider Facility Start: 01-29-2025 End: 01-29-[address] Ifrah Baker MD [facility] Work Phone: Start: 01-29-2025 End: 01-29-[address] Tray Cabrera MD -[facility] Work Phone: Start: 01-06-2025 ambulatory Ifrah Baker Facility:[facility] Start: 01-06-[address] Ifrah Baker MD -[facility] Start: 12-09-2024 End: 12-09-[address] Ifrah Baker MD [facility] Work Phone: Start: 12-09-2024 End: 12-09-[address] Ifrah Baker MD -[facility] Start: 12-09-2024 End: 12-09-2024 ambulatory Ifrah Baker Facility:[facility] Start: 10-30-2024 End: 10-30-2024 ambulatory Tray Cabrera Facility:[facility] Start: 10-30-2024 End: 10-30-[address] Tray Cabrera MD -[facility] Work Phone: Start: 07-31-2024 End: 07-31-2024 ambulatory Tray Cabrera Facility:[facility] Start: 07-31-2024 End: 07-31-[address] Tray Cabrera MD -[facility] Work Phone: Start: 06-30-2024 End: 06-30-2024 ambulatory Ifrah Gudla OLS Facility:[facility] Start: 06-24-2024 End: 06-24-2024 ambulatory Ifrah Gudla Facility:[facility] Start: 05-12-2024 End: 05-12-2024 ambulatory Ifrah Gudla Facility:[facility] Start: 05-01-2024 End: 05-01-2024 ambulatory Tray Cabrera Facility:[facility] Start: 05-01-2024 End: 05-01-2024 ambulatory Ifrah Gudla Facility:[facility] Start: 04-29-2024 ambulatory Ifrah Gudla Facility:[facility] Start: 04-25-2024 End: 04-25-2024 ambulatory Ifrah Gudla Facility:[facility] Start: 04-23-2024 End: 04-23-2024 ambulatory Ifrah Gudla Facility:[facility] Start: 04-21-2024 End: 04-21-2024 ambulatory Ifrah Gudla Facility:[facility] Start: 04-18-2024 End: 04-18-2024 ambulatory Ifrah Gudla Facility:[facility] Start: 04-07-2024 End: 04-07-2024 ambulatory Ifrah Gudla Facility:[facility] Start: 11-05-2023 End: 11-05-[address] Ifrah Baker [facility] Work Phone: Start: 11-05-2023 End: 11-05-[address] Ifrah Baker [facility] Start: 11-01-2023 End: 11-01-[address] Ifrah Baker [facility] Work Phone: Start: 10-29-2023 End: 10-29-[address] [facility] Work Phone: Start: 08-02-2023 Non-patient / Non-visit Dr. Ifrah cruz [facility] Start: 08-02-2023 End: 08-02-[address] Ifrah Steendayton [facility] Work Phone: Start: 08-02-2023 End: 08-02-[address] Rg [facility] Work Phone: Start: 07-23-2023 End: 07-23-2023 ambulatory [facility] Work Phone: Start: 07-23-2023 End: 07-23-2023 Patient encounter procedure [facility]Cardiov[facility] Services Work Phone: Start: 06-20-2023 End: 06-20-2023 ambulatory [facility] Work Phone: Start: 06-20-2023 End: 06-20-2023 Departed Referred [facility] Start: 05-29-2023 End: 05-29-2023 Emergency department patient visit [facility]Emergency Department Work Phone: Start: 03-01-2023 End: 03-02-2023 Emergency department patient visit [facility] Work Phone: Start: 01-01-2023 End: 01-01-2023 Departed Referred [facility] Start: 10-31-2022 Refill Jaren SOTOMAYOR RN.[facility] Work Phone: [facility] Comment on above: Refill Request Start: 10-09-2022 Telephone encounter Keri CHAVIRA [facility] Comment on above: Orders Start: 10-04-2022 Telephone encounter Gavino muse MD Work Phone: [facility] Comment on above: [facility] Start: 09-29-2022 Telephone encounter Gavino muse MD Work Phone: [facility] Comment on above: urine symptoms Start: 09-07-2022 End: 09-07-2022 ambulatory GAVINO MELENDEZ Facility:[facility] Start: 09-07-2022 End: 09-07-2022 Patient encounter procedure Gavino Melendez MD Work Phone: [facility] Comment on above: Essential hypertensi on (Primary Dx); Dementia without behavioral disturbance (HCC); Hyperlipidemia, unspecified hyperlipidemia type; Anxiety and depression; Hypothyroidism, iatrogenic Start: 08-31-[address] Gavino keller Work Phone: [facility] Start: 08-24-2022 End: 08-24-[address] Gavino Melendez Work Phone: [facility] Work Phone: Start: 08-24-2022 End: 08-24-[address] Gavino Melendez Work Phone: [facility] Start: 08-22-[address] Gavino keller Work Phone: [facility] Start: 08-17-[address] Gavino keller Work Phone: [facility] Start: 08-16-2022 Non-patient / Non-visit Dr. Mario Melendez Work Phone: [facility] Start: 08-15-2022 Non-patient / Non-visit Dr. Mario Melendez Work Phone: [facility] Start: 08-14-2022 Non-patient / Non-visit Dr. Mario Melendez Work Phone: [facility] Start: 08-14-2022 End: 08-16-2022 Evaluation and management of inpatient Dr. Gavino Melendez Work Phone: [facility]-Progressive Care Unit Start: 08-14-2022 End: 08-16-[address] Gavino Melendez Work Phone: [facility] Work Phone: Start: 08-14-2022 End: 08-14-2022 ambulatory JAREN MONTES Facility:[facility] Start: 08-14-2022 End: 08-14-2022 Patient encounter procedure Jaren Montes MATCHBOOK MAKERDEN Work Phone: [facility] Comment on above: Recurrent falls (Rossi letty Dx); Generalized weakness; Hypotension, unspecified hypotension type; Confusion Start: 06-30-2022 Telephone encounter Gavino muse MD Work Phone: [facility] Comment on above: Results Start: 06-24-2022 End: 06-27-2022 ambulatory GAVINO MELENDEZ Facility:[facility] Start: 06-24-2022 End: 06-24-2022 Patient encounter procedure Gavino Melendez MD Work Phone: [facility] Comment on above: Essential hypertensi on (Primary Dx); Hyperlipidemia, unspecified hyperlipidemia type; Stage 3a chronic kidney disease (HCC); Hypothyroidism, iatrogenic; Arthritis of knee; Anxiety and depression; Flu vaccine need Start: 05-30-2022 Telephone encounter Gavino muse MD Work Phone: [facility] Comment on above: Orders for physical therapy in home (orders to [facility]) Start: 05-27-2022 End: 05-27-2022 Emergency department patient visit Dr. Gavino Melendez Work Phone: [facility]-Emergency Department Start: 05-17-2022 End: 05-17-[address] Gavino Melendez Work Phone: [facility] Start: 02-10-2022 End: 02-10-[address] Gavino Melendez Work Phone: [facility] Start: 01-30-2022 End: 01-30-2022 ambulatory [facility] Facility:[facility] Start: 01-30-2022 End: 01-30-2022 Patient encounter procedure Gavino Melendez MD Work Phone: [facility] [employer] Comment on above: Essential hypertensi on (Primary Dx); Dementia without behavioral disturbance, unspecified dementia type (HCC); Hyperlipidemia, unspecified hyperlipidemia type; Hypothyroidism, iatrogenic; Anxiety and depression Start: 01-25-2022 End: 01-25-2022 ambulatory [facility] Facility:[facility] Start: 12-29-2021 Refill Gavino shea MD Work Phone: [facility] Comment on above: Refill Request Start: 11-28-2021 End: 11-28-2021 [facility] Facility:[facility] Start: 11-28-2021 End: 11-28-2021 Patient encounter procedure Gavino Melendez MD Work Phone: [facility] Comment on above: Essential hypertensi on (Primary Dx); Anxiety and depression; Hypothyroidism, iatrogenic; Hyperlipidemia, unspecified hyperlipidemia type; Dementia without behavioral disturbance, unspecified dementia type (HCC) Procedures Date Procedure Procedure Detail Performing Clinician Start: 01-06-2025 Vitamin D, 25-hydrox y measurement Dr. Ifrah Baker MD Comment on above: Vitamin D StatusDefi ciency: <20 ng/mL (50nmol/L)Insufficiency: 20-30 ng/mL (50-75 nmol/L)Sufficiency: 30-100 ng/mL (75-250 nmol/L)Toxicity: >100 ng/mL (>250 nmol/L) Start: 05-29-2023 CT of pelvis without contrast Start: 05-29-2023 Plain chest X-ray Start: 05-29-2023 Plain x-ray of humerus Start: 05-29-2023 Plain x-ray of pelvi s and lower extremity Start: 05-29-2023 Radiologic examinati on of knee Start: 05-29-2023 CT of head without contrast Start: 03-01-2023 CT angiography of ch est with contrast Start: 03-01-2023 Plain chest X-ray Start: 08-15-2022 CT of chest without contrast Dr. Gavino Melendez Work Phone: Start: 08-14-2022 Plain chest X-ray Dr. Srinivas Melendez Work Phone: Start: 06-24-2022 INFLUENZA SEASONAL QUADRIVALENT HIGH DOSE AGE 65+ Gavino Melendez MD Work Phone: Start: 05-27-2022 Radiologic examinati on of knee Dr. Gavino Melendez Work Phone: Bacteria identified in Blood by Culture Dr. Gavino Melendez Work Phone: Urine culture Dr. Gavino ervin Work Phone: Urine culture Dr. Gavino ervin Work Phone: Viral antigen assay Dr. Gavino Melendez Work Phone: Viral antigen assay Dr. Gavino Melendez Work Phone: Plan of Treatment Date Care Activity Detail Author Start: 06-24-2025 DIABETES SCREEN DIABETES SCREEN [facility] Start: 01-25-2025 DIABETES SCREEN [facility]CREEN [facility] Start: 05-23-2024 DIABETES SCREEN [facility] Start: 03-01-2023 [facility] Start: 11-30-2022 End: 01-30-2023 CBC panel - Blood by Automated count CBC Lab Routine Essential hypertension Hypothyroidism, iatrogenic Expected: 11/30/2022 (Approximate), Expires: 01/30/2023 [facility] Work Phone: Comment on above: Expected: 11/30/2022 (Approximate), Expires: 01/30/2023 Start: 11-30-2022 End: 01-30-2023 Comprehensive metabolic 2000 panel - Serum or Plasma COMP METABOLIC PANEL Lab Routine Hyperlipidemia, unspecified hyperlipidemia type Essential hypertension Expected: 11/30/2022 (Approximate), Expires: 01/30/2023 [facility] Work Phone: Comment on above: Expected: 11/30/2022 (Approximate), Expires: 01/30/2023 Start: 11-30-2022 End: 01-30-2023 Lipid 1996 panel - Serum or Plasma LIPID PANEL BASIC Lab Routine Hyperlipidemia, unspecified hyperlipidemia type Essential hypertension Expected: 11/30/2022 (Approximate), Expires: 01/30/2023 [facility] Work Phone: Comment on above: Expected: 11/30/2022 (Approximate), Expires: 01/30/2023 Start: 11-30-2022 End: 01-30-2023 Thyrotropin [Units/volume] in Serum or Plasma TSH BLD Lab Routine Hypothyroidism, iatrogenic Expected: 11/30/2022 (Approximate), Expires: 01/30/2023 [facility] Work Phone: Comment on above: Expected: 11/30/2022 (Approximate), Expires: 01/30/2023 Start: 08-27-2022 ADVANCE DIRECTIVE DISCUSSION ADVANCE DIRECTIVE DISCUSSION [facility] Start: 08-16-2022 Patient discharge [facility] Start: 08-14-2022 Assessment of risk o f venous thromboembolism [facility] Start: 08-14-2022 Insertion of cathete r into peripheral vein [facility] Start: 08-14-2022 Providing care accor ding to standard [facility] Start: 08-14-2022 Provision of activit y privileges [facility] Start: 08-14-2022 Referral to occupati onal therapist [facility] Start: 08-14-2022 Referral to service [facility] Start: 08-14-2022 [facility] Start: 08-14-2022 Following clinical pathway protocol [facility] Start: 08-14-2022 Verification routine [facility] Work Phone: Start: 08-14-2022 Admission procedure [facility] Start: 08-14-2022 Blood culture [facility] Work Phone: Start: 08-14-2022 [facility] Work Phone: Start: 08-14-2022 End: 08-14-2022 Blood culture [facility] Work Phone: Start: 08-14-2022 Patient referral to dietitian [facility] Start: 08-01-2022 End: 10-01-2022 CBC panel - Blood by Automated count CBC Lab Routine Essential hypertension Expected: 08/01/2022 (Approximate), Expires: 10/01/2022 [facility] Work Phone: Comment on above: Expected: 08/01/2022 (Approximate), Expires: 10/01/2022 Start: 08-01-2022 End: 10-01-2022 Comprehensive metabolic 2000 panel - Serum or Plasma COMP METABOLIC PANEL Lab Routine Hyperlipidemia, unspecified hyperlipidemia type Essential hypertension Expected: 08/01/2022 (Approximate), Expires: 10/01/2022 [facility] Work Phone: Comment on above: Expected: 08/01/2022 (Approximate), Expires: 10/01/2022 Start: 08-01-2022 End: 10-01-2022 LIPID PANEL BASIC LIPID PANEL BASIC Lab Routine Hyperlipidemia, unspecified hyperlipidemia type Essential hypertension Expected: 08/01/2022 (Approximate), Expires: 10/01/2022 [facility] Work Phone: Comment on above: Expected: 08/01/2022 (Approximate), Expires: 10/01/2022 Start: 08-01-2022 End: 10-01-2022 Thyrotropin [Units/volume] in Serum or Plasma TSH BLD Lab Routine Hypothyroidism, iatrogenic Expected: 08/01/2022 (Approximate), Expires: 10/01/2022 [facility] Work Phone: Comment on above: Expected: 08/01/2022 (Approximate), Expires: 10/01/2022 Start: 06-24-2022 End: 08-24-2022 CBC panel - Blood by Automated count [facility] Work Phone: Comment on above: Expected: 06/24/2022 (Approximate), Expires: 08/24/2022 Start: 06-24-2022 End: 08-24-2022 Comprehensive metabolic 2000 panel - Serum or Plasma [facility] Work Phone: Comment on above: Expected: 06/24/2022 (Approximate), Expires: 08/24/2022 Start: 06-24-2022 End: 08-24-2022 Thyrotropin [Units/volume] in Serum or Plasma [facility] Work Phone: Comment on above: Expected: 06/24/2022 (Approximate), Expires: 08/24/2022 Start: 04-27-2022 Influenza vaccination INFLUENZA (#1) [facility] Start: 01-27-2022 End: 03-29-2022 Comprehensive metabolic 2000 panel - Serum or Plasma [facility] Work Phone: Comment on above: Expected: 01/27/2022 (Approximate), Expires: 03/29/2022 Start: 01-27-2022 End: 03-29-2022 LIPID PANEL BASIC LIPID PANEL BASIC Lab Routine Hyperlipidemia, unspecified hyperlipidemia type Expected: 01/27/2022 (Approximate), Expires: 03/29/2022 [facility] Work Phone: Comment on above: Expected: 01/27/2022 (Approximate), Expires: 03/29/2022 Start: 01-27-2022 End: 03-29-2022 Thyrotropin [Units/volume] in Serum or Plasma TSH BLD Lab Routine Hypothyroidism, iatrogenic Expected: 01/27/2022 (Approximate), Expires: 03/29/2022 [facility] Work Phone: Comment on above: Expected: 01/27/2022 (Approximate), Expires: 03/29/2022 Start: 08-27-2021 ADVANCE DIRECTIVE DISCUSSION ADVANCE DIRECTIVE DISCUSSION [facility] Start: 06-09-2011 SHINGRIX VACCINE (2 of 3) REGALADO GRIX VACCINE (2 of 3) [facility] Start: 05-28-2010 Urine microalbumin profile DTAP,TDAP,TD (1 - Tdap) [facility] Start: [birth year]-29-1945 COVID-19 VACCINE (#1) COVID-19 VACCI NE (#1) [facility] Start: [birth year]-29-1945 COVID-19 VACCINE (1) COVID-19 VACCIN E (1) [facility] Start: 1939 COVID-19 VACCINE (#1) COVID-19 VACCI NE (#1) [facility] Anion gap measurement [facility] Work Phone: Bacteria identified in Blood by Culture Blood Culture [facility] Work Phone: Bacteria identified in Urine by Culture Urine Culture [facility] Work Phone: Blood culture [facility] Work Phone: BUN/Creatinine ratio [facility] Work Phone: Calcium [Mass/volume ] in Serum or Plasma [facility] Work Phone: Carbon dioxide, tota l [Moles/volume] in Serum or Plasma [facility] Work Phone: Chloride [Moles/volu me] in Serum or Plasma [facility] Work Phone: Creatinine [Moles/vo lume] in Serum or Plasma [facility] Work Phone: Glucose [Mass/volume ] in Serum or Plasma [facility] Work Phone: Hematocrit [Volume Fraction] of Blood [facility] Work Phone: Hemoglobin [Mass/vol ume] in Blood [facility] Work Phone: Leukocytes [#/volume ] in Blood [facility] Work Phone: Mean corpuscular hemoglobin concentration determination [facility] Work Phone: Mean corpuscular hemoglobin determination [facility] Work Phone: Measurement of renal function [facility] Work Phone: Neutrophil count [facility] Work Phone: Neutrophil percent differential count [facility] Work Phone: Patient Education [facility] Work Phone: Patient referral [facility] Work Phone: Platelets [#/volume] in Blood [facility] Work Phone: Potassium [Moles/vol ume] in Serum or Plasma [facility] Work Phone: Red blood cell count [facility] Work Phone: Red cell distributio n width determination [facility] Work Phone: Sodium [Moles/volume ] in Serum or Plasma [facility] Work Phone: Urea nitrogen [Mass/volume] in Serum or Plasma [facility] Work Phone: [facility] Immunizations Immunization Date Immunization Notes Care Provider Fa cili 06-24-2022 influenza, high-dose , quadrivalent vaccine (FLUZONE HIGH DOSE QUADRIVALENT) Gavino Melendez MD Work Phone: [facility] 05-30-2021 influenza, high-dose , quadrivalent vaccine (FLUZONE HIGH DOSE QUADRIVALENT) Gavino Melendez MD Work Phone: [facility] 05-27-[address] Gavino Melendez Work Phone: [facility] 05-05-2020 influenza, high-dose , quadrivalent vaccine (FLUZONE HIGH DOSE QUADRIVALENT) Gavino Melendez MD Work Phone: [facility] 06-09-2019 influenza, high dose seasonal, preservative-free Gavino Melendez MD Work Phone: [facility] 06-21-2018 influenza, high dose seasonal, preservative-free Gavino Melendez MD Work Phone: [facility] 05-29-2017 influenza, injectabl e, quadrivalent, preservative free [facility] 05-29-2017 influenza, seasonal, injectable Dr. Gavino Melendez Work Phone: [facility] 05-27-2017 influenza, high dose seasonal, preservative-free Gavino Melendez MD Work Phone: [facility] 05-27-2016 influenza, high dose seasonal, preservative-free Gavino Melendez MD Work Phone: [facility] 07-16-2015 pneumococcal conjuga te vaccine, 13 valent Gavino Melendez MD Work Phone: [facility] 05-27-2015 influenza, high dose seasonal, preservative-free Gavino Melendez MD Work Phone: [facility] 05-08-2013 influenza virus vacc ine, unspecified formulation Gavino Melendez MD Work Phone: [facility] Work Phone: 05-02-2011 influenza virus vacc ine, unspecified formulation Gavino Melendez MD Work Phone: [facility] 04-14-2011 zoster vaccine, live Gavino nicole MD Work Phone: [facility] Work Phone: 05-27-2010 tetanus and diphther ia toxoids, adsorbed, preservative free, for adult use (2 Lf of tetanus toxoid and 2 Lf of diphtheria toxoid) Gavino Melendez MD Work Phone: [facility] Work Phone: 05-14-2010 influenza virus vacc ine, unspecified formulation Gavino Melendez MD Work Phone: [facility] Work Phone: 08-27-[address] Shakira Melendez Work Phone: [facility] Work Phone: 08-27-2009 pneumococcal vaccine , unspecified formulation Dr. Gavino Melendez Work Phone: [facility] 05-27-2005 influenza virus vacc ine, unspecified formulation Gavino Melendez MD Work Phone: [facility] Work Phone: 07-29-2004 pneumococcal polysaccharide vaccine, 23 valent Gavino Melendez MD Work Phone: [facility] Work Phone: 05-27-2004 influenza virus vacc ine, unspecified formulation Gavino Melendez MD Work Phone: [facility] Work Phone: 07-27-2003 influenza virus vacc ine, unspecified formulation Gavino Melendez MD Work Phone: [facility] Work Phone: 06-27-2002 influenza virus vacc ine, unspecified formulation Gavion Melendez MD Work Phone: [facility] Work Phone: 07-27-2001 influenza virus vacc ine, unspecified formulation Gavino Melendez MD Work Phone: [facility] Work Phone: 05-27-1997 influenza virus vacc ine, unspecified formulation Gavino Melendez MD Work Phone: [facility] Work Phone: 06-27-1993 pneumococcal polysaccharide vaccine, 23 valent Gavino Melendez MD Work Phone: [facility] Work Phone: Payers Date Payer Category Payer Self-pay [id number] 2023 Medicaid [id number] 2023 Unknown [id number] 2021 Medicare UHC AARP MEDICAR E [facility] MEDICARE PPO [id number] 2021-Present [phone] [address] [address] [place] [address] PPO [id number] 2021 Medicare UHC AARP MEDICAR E [facility] MEDICARE PPO [id number] 2021-Present [phone] [address] [address] [place] [address] PPO [id number] 2021 Unknown [id number] 2012 Unknown ANTHEM [id number] 2004 Medicare MEDICARE PART A B [id number] Unknown [facility] [employer] [id number] Unknown [id number] Unknown [id number] Unknown [id number] [id number] Unknown [id number] [id number]2 Unknown [id number] [id number]2 Unknown [id number] 2.16.840.1.280325.3.579.2.462 Unknown [id number] 2.16.840.1.566431.3.579.2.462 Unknown [id number] 2.16.840.1.238326.3.579.2.462 Unknown [id number] 2.16.840.1.775430.3.579.2.462 Unknown [id number] 2.16.840.1.772667.3.579.2.462 Unknown [id number] 2.16.840.1.377447.3.579.2.462 Unknown [id number] 2.16.840.1.075318.3.579.2.462 Unknown [id number] 2.16.840.1.928580.3.579.2.462 Unknown [id number] 2.16.840.1.616638.3.579.2.462 Unknown [id number] 2.16.840.1.729243.3.579.2.462 Unknown [id number] 2.16.840.1.530651.3.579.2.462 Unknown [id number] [id number]2 Unknown [id number] Social History Date Type Detail Facility Start: 11-16-2011 End: 10-29-2023 Tobacco smoking status NHIS Never smoked tobacco [facility] Start: 11-28-2021 End: 09-07-2022 Alcohol intake Current non-drinker of alcohol (finding) [facility] Start: 1940 Sex Assigned At Not on file [facility] Start: 11-18-2021 End: 06-24-2022 Exposure to SARS-CoV-2 (event) Not sure [facility] Start: 05-27-2022 End: 10-29-2023 Tobacco smoking status WIIS Unknown if ever smoked [facility] Start: 12-17-2020 None [facility] Start: 12-18-2020 Alone [facility] Start: 12-19-2020 Non-smoker [facility] Start: 1940 Sex Assigned At Female W [facility] Start: 11-16-2011 End: 06-24-2022 Tobacco use and exposure Smokeless tobacco non-user [facility] Start: 11-25-2024 Sex Female (finding) [facility] Medical Equipment Procedure Code Equipment Code Equipment Origin al Text Equipment Identifier Dates Cement Simplex P Bone Radiopaque Full Dose Sterile - [id number] Start: 08-16-2016 Ragini Farheen 3 Ti - [id number] Start: 10-26-2011 6.5 X 50 Mm Screw [id number] Start: 10-26-2011 Comment on above: Description: [id number], SCREW 90 Mm Rad Alistair [id number] Start: 10-26-2011 Comment on above: Description: ALISTAIR Component Triath gema 5 Femoral Cemented Posterior Stabilize Knee Right - [id number] Start: 08-16-2016 Insert Triathlon 6 X3 9mm Tibial Posterior Stabilized Bearing Knee - [id number] Start: 08-16-2016 Component Triath gema 38mm X3 11mm Patellar Asymmetric Knee - [id number] Start: 08-16-2016 Baseplate Triath gema 6 Tibial Primary Cement Knee - [id number] Start: 08-16-2016 ([id number]) Endocardial paci ng lead ()[id number] FDA Start: 09-26-2021 ([id number]) Endocardial paci ng lead ()[id number] FDA Start: 09-26-2021 ([id number]) Dual-chamber implantable pacemaker, rate-responsive ()[id number] FDA Start: 09-26-2021 Goals Date Patient Goal Desired Activity /State Functional Status Date Assessment Result Facility 08-16-2022 Functional status Bedrest [facility] Work Phone: Mental Status Date Assessment Result Facility 03-01-2023 Cognitive function Level Of Cons ciousness Awake;Alert;Appropriate;Follow s Commands [facility] Work Phone: 08-16-2022 Cognitive function Voice/Name [facility] Work Phone: 08-14-2022 Cognitive function Level Of Cons ciousness Awake;Alert [facility] Work Phone: Clinical Notes 08-16-2016 to 10-30-2024 Note Date & Type Note Facility 10-30-2024 Evaluation note Diagnosis Onset Date Resolution PAF (paroxysmal atrial fibrillation) acute October 30, 2024 10:02am Presence of permanent cardiac pacemaker August, acute October 30, 2024 10:02am Sick sinus syndrome due to SA node dysfunction acute October 30, 2024 10:02am PAF (paroxysmal atrial fibrillation) acute October 30, 2024 10:03am Presence of permanent cardiac pacemaker August, acute October 30, 2024 10:03am Hyperlipidemia chronic October 30, 2024 10:03am [facility] Work Phone: 1(661) 104-114212-07-2023 Procedure [facility] 05-29-2023 Discharge summary Author Edwin Nath [facility] May 29, 2023 10:47pm Note Date/Time May 29, 2023 8: 40pm [facility] Medical Records Department [address] [place] [address] Emergency Department Summary 05/29/23 MR#: [id number] Acct: [id number] Name: LETTY LEON Rep #:[id number] : 1940 83 From: Edwin Nath MD PCP: Ifrah Baker MD Status:REG ER Location: ED HPI History of Present Illness Chief Complaint: Lower Extremity Injury Informant: patient and SNF Narrative Narrative: Patient presents after a fall at [facility]. Patient states she fell when she was twisting but does not remember a lot of details. She states she hurts in the left knee mostly not the right knee. Care center staff said she was standing at the counter. She turned to walk awayand as she turned she fell. She did hit her head but no loss of consciousness. She is not on blood thinners. She is evidently acting normally. She does have dementia. Patient states she knows she was told she hit her head but it does not hurt at all. She has a little bit of discomfort in the left upper arm and mostly the left knee area. [facility] Medical History Anxiety and depression Bradycardia Dementia Dementia HLD (hyperlipidemia) HTN (hypertension) Hypertension Hypothyroidism Kidney disease Kidney stones Osteoporosis Presence of permanent cardiac pacemaker (~09/26/21) Sick sinus syndrome due to SA node dysfunction Sinus pause Syncope Home Medications cholecalciferol (vitamin D3) 25 mcg (1,000 unit) capsule (Vitamin D3) 1,000 unitPO DAILY supplement 03/15/14 [History Last Taken 08/14/22] atorvastatin 20 mg tablet 20 mg PO QHS cholesterol 12/17/20 [History Last Taken 08/13/22] levothyroxine 100 mcg tablet 100 mcg PO DAILY thyroid 06/27/21 [History Last Taken 08/14/22] buspirone 10 mg tablet 10 mg PO BID DEPRESSION 12/05/21 [History Last Taken 08/14/22] citalopram 20 mg tablet 20 mg PO DAILY depression 12/05/21 [History Last Taken 08/14/22] Allergy/AdvReac Type Severity Reaction Status Date / Time Environmental Allergies: Allergy Itching Verified 05/29/23 20:04 Uncoded Penicillins [PCN] Allergy Other Verified 05/29/23 20:04 Sulfa (Sulfonamide Allergy Other Verified 05/29/23 20:04 Antibiotics) Family History Father Heart disease Kidney disease Mother Heart disease Surgical History H/O breast surgery H/O thyroidectomy History of appendectomy History of knee joint replacement History of lumbar fusion Social History household members: other details: Her son lives with her and takes care of her. Smoking Status: Never smoker alcohol intake: never substance use type: does not use additional social history: Uses lift chair at home with stairs and walker for all walking. ROS ROS ED Constitutional Constitutional ED: Denies chills or fever(s) Eyes Eyes: Denies change in vision ENT ENT ED: Denies rhinorrhea Cardiovascular Cardiovascular: Denies chest pain or palpitations Respiratory/Chest Respiratory/Chest: Denies cough or dyspnea Gastrointestinal Gastrointestinal: Denies nausea or vomiting Musculoskeletal Musculoskeletal: Reports arthralgias; Denies back pain or neck pain Integumentary Denies Abrasions or rash Neurologic Neurologic: Denies headache(s), paresthesias or weakness Hematologic/Lymphatic Hematologic/Lymphatic: Denies easy bleeding or easy bruising Allergic/Immunologic Allergic/Immunologic ED: Denies urticaria EXAM Physical Exam Narrative Exam Narrative: General: Patient is awake alert she is pleasant. She does look a little bit uncomfortable though. HEENT: I am not seeing obvious contusions or abrasions. There is no sore areas on her scalp. No abrasion on her face nose chin or back of her head. Neck is supple no tenderness no pain with range of motion Lungs are clear bilaterally. Saturations are normal at 98% on room air showing no hypoxia and there is no tenderness. Heart is regular. Rate of about 60-65. Abdomen is soft and nontender Spine shows no cervical thoracic or lumbar tenderness. No pain with AP or lateral compression of the pelvis. Extremities I am not seeing deformity. She moves both upper extremities well but she does have a little tenderness in the mid left humerus area. But no deformity. Lower extremities do show some tenderness mostly in the medial aspect of her left knee. It seems a little swollen there but there is no deformity. She can move it a bit but it hurts. There is no shortening or rotation. But when I move the leg or press in the left hip there is some mild discomfort up there. Neurologically she is awake alert. No numbness. She is reasonably oriented but evidently at baseline per staff knows her. Const Vital Signs: 05/29/23 20:04 Temperature 97.6 F L Temperature Source Temporal Pulse Rate 60 Respiratory Rate 14 Blood Pressure 124/93 H Blood Pressure Mean 103 Pulse Ox 98 Oxygen Delivery Method Room Air MDM MDM MDM Narrative Medical decision making narrative: NoMy independent interpretation of the patient's three-view x-ray of the left hip shows a normal left hip but abnormal right. This looks like it could be AVN or significant arthritic changes. This is a marked change from an image that I have but that images 13 years ago. There is been some questions on her alternating which side hurts. I will get a CT of the pelvis to better define this. My independent interpretation of the patient's 4 view x-ray of her left knee show a lot of arthritic changes but no acute fracture or dislocation. My independent interpretation of the two-view x-ray of the left humerus shows arthritic changes at the shoulder but no fracture. My independent interpretation of the patient's single view AP chest x-ray shows likely large hernia. No acute process. My independent interpretation the patient's CT of the pelvis shows chronic more arthritic changes no indication of acute fracture. My independent interpretation of the patient's CT of the head without contrast shows chronic changes but no acute mass or bleeding. Final reading by radiology and the above images are similar. CBC is normal. Electrolytes show no marked abnormalities. Working to walk the patient. Then I find out that the patient is not mobile. She was not supposed to be standing up today. She is supposed to be in a wheelchair. This is likely contributing to her fall. Her pain is there is no sign of acute fracture. Plan will be to get her back to [facility]. Lab Data Attestation: I reviewed the patient's lab results. Labs: Laboratory Results - last 24 hr 05/29/23 20:40 WBC 5.8 RBC 4.05 L Hgb 12.4 Hct 39.0 MCV 96.3 MCH 30.6 MCHC 31.8 L RDW Std Deviation 47.4 H RDW Coeff of Jad 13.2 Plt Count 205 MPV 10.6 Immature Gran % (Auto) 0.200 Neut % (Auto) 62.6 Lymph % (Auto) 21.7 [place] % (Auto) 10.6 H Eos % (Auto) 4.2 Baso % (Auto) 0.7 Absolute Neuts (auto) 3.6 Absolute Lymphs (auto) 1.25 Nucleated RBC % 0 Sodium 140 Potassium 4.2 Chloride 108 H Carbon Dioxide 29.0 Anion Gap 3 L BUN 33 H Creatinine 1.18 H Estim Creat Clear Calc 37.09 Est GFR (MDRD) Af Amer 56 L Est GFR (MDRD) Non-Af 46 L BUN/Creatinine Ratio 28.0 H Glucose 102 Calcium 8.6 Radiography Diagnostic Testing: Clinical Impression(s) from Imaging Studies Brain CT 05/29/23 20:31 IMPRESSION: Age-related changes as above, without evidence of acute intracranial hemorrhage in this noncontrast head CT. Electronically Signed: Bryant Joe MD at 21:26 EDT , Hip/Pelvis X-Ray 05/29/23 21:10 IMPRESSION: No acute osseous abnormality of the pelvis or left hip. Moderate amount of stool within the rectosigmoid raising concern for impaction. 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 Electronically Signed: Bryant Joe MD at 22:11 EDT , Humerus X-Ray 05/29/23 21:10 IMPRESSION: No acute osseous abnormality of the left humerus. Electronically Signed: Bryant Joe MD at 21:44 EDT , Knee X-Ray 05/29/23 21:10 IMPRESSION: Moderate to severe degenerative change without acute osseous abnormality of the left knee. Electronically Signed: Bryant Joe MD at 22:06 EDT , Pelvis CT 05/29/23 21:24 IMPRESSION: Moderate amount of stool within the rectosigmoid raising concern for impaction. 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 No acute osseous abnormality of the pelvis or bilateral hips. Electronically Signed: Bryant Joe MD at 22:19 EDT , Discharge Plan Triage Chief Complaint: Lower Extremity Injury ED Provider: Edwin Nath Dx/Rx/DC Orders Clinical Impression: Closed head injury, Contusion of arm, left, Fall at retirement, Contusion of hip, left, Contusion of left knee Instructions: Bruises (Contusions) Prescriptions: No Action buspirone 10 mg tablet 10 mg PO BID cholecalciferol (vitamin D3) [Vitamin D3] 1,000 UNIT capsule 1,000 unit PO DAILY Patient Comments: suppliment atorvastatin 20 MG tablet 20 mg PO QHS levothyroxine 100 mcg tablet 100 mcg PO DAILY Patient Comments: Take 1 tablet by mouth once daily. Take on empty stomach. For Thyroid citalopram 20 mg tablet 20 mg PO DAILY Patient Comments: Take 1 tablet by mouth once daily. Primary Care Provider: Ifrah Baker Referrals: Ifrah Baker MD [Primary Care Provider] - 3-5 Days if not improving Disposition Disposition: Intermediate Facility Discharge Location: [facility] What to do if you have Problems For any increased pain, shortness of breath, bleeding, nausea or vomiting, chestpain, or any unexpected problems, contact your Primary Care Provider. Call [facility] ([phone]) or report to the closest Emergency Room. Call 911 if necessary. 05/29/232246 <Electronically signed by Edwin Nath MD> Cosigner Signature (if applicable): CC: Ifrah Baker MD ~ Signed [facility] Work Phone: 1(606) 415-101302-14-2023 Miscellaneous Notes* Telephone Encounter - Tanya Rojas Ma - 10/10/2022 9:59 AM EST Paperwork re faxed. Tanya Rojas Ma * Telephone Encounter - Gavino Melendez MD - 10/10/2022 9:33 AM EST Done; see 10/05 telephone note Gavino Melendez MD * Telephone Encounter - FAN Osborn - 10/09/2022 2:02 PM EST Patient's son was calling in to see if had filled out paperwork for patient to be admitted to [facility]. The retirement was supposed to fax over paperwork to office on 10/06/22. Patient has a deadline of due to medicare regulation. Please review and advise. FAN Osborn October 09, 2022 2:04 PM documented in [facility] Miscellaneous Notes* Telephone Encounter - Tanya Rojas Ma - 10/05/2022 10:46 AM EST Nima notified. He will contact retirement and have them send over paperwork. Tanya Rojas Ma * Telephone Encounter - Gavino Melendez MD - 10/05/2022 8:38 AM EST I can give him an order for admission to retirement; he may need to contact the retirement and have them send the required paperwork here. Gavino Melendez MD * Telephone Encounter - Anahi Moran RN - 10/04/2022 10:07 AM EST Patient's son calls and states that patient has been approved for medicaid. They have until 10/13/2022 to have her placed in a retirement. Son states that he had taken patient to [facility] ER to help getpatient in the retirement per recommendations from [facility]. [facility] ER told son that he needed to contact PCP to get patient placed in retirement. Patient is requiring more help then family can give. Patient is getting more confused. Son asking if provider can help patient get into [facility]? Please give son a call back. Please review and advise, Anahi Moran RN documented in [facility]23 Miscellaneous Notes* Telephone Encounter - Emelia Rodriguez Ma - 10/02/2022 10:05 AM EST Call to pt sonNima and notified him of below. 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 May have cleared up, but is picking up Rx. Emelia Rodriguez Ma * Telephone Encounter - Gavino Melendez MD - 09/30/2022 8:22 AM EST OK to go ahead and treat with three days of Bactrim as ordered Gavino Melendez MD * Telephone Encounter - Carey Bell LPN - 09/29/2022 12:05 PM EST Son calling for pt. Pt is having urine symptoms. Wetting thru everything,frequency x 2 days Denies: pain, burning . Pt drinking 5 to 6 glasses of water per day. Son is asking to have something called in for UTI. He was instructed put would need to be seen or could go into [facility]. Son unable to bring pt in his car is down and he is waiting on parts.. Please advise son. Carey Bell LPN documented in this encounterMer[facility]01-12-2023 NoteHNO ID: [id number] Author: Gavino Melendez MD Service: ? Author Type: Physician Type: Progress Notes Filed: 09/07/2022 2:56 PM Note Text: Chief Complaint Patient presents with: Hospital F/U: [facility]pc follow up. HPI Letty Leon is a 82 year old female who presents here today for a [facility] follow up. Pt here today with her son for a [place] discharge. Pt was admitted into [facility] due to UTI, low BP, Dementia and recurrent falls. Pt was admitted from 08/14/22 and was stable for discharge to SNF on 08/16/22. Pt recently discharged from [facility] on 09/03/22. Nima unsure what the patient did while in [place], Dr. Gann told him she looked good, Nursing said she did well and Therapy said she did good. Before discharged pt did fall out of bed. When pt was discharged home, Nima states she almost fell in the kitchen but did not. Pt here today in a wheelchair, declines walking. Pt has to use a walker with assistance in order to ambulate. They have a lift chair at home, and are getting a hospital bed. Working on getting Home Health assistance also. Right now Nima and his daughter are providing care for Letty. Pt was having issues of confusion and being disoriented. Nima states that this has seemed to have gotten worse again. Nima spoke with WILMER Alcocer at [place] and they were ordering hospital bed and faxing it over to [employer].. Past medical history, appointments, medications, allergies reviewed. 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 VITAMIN D DEFICIENCY NOS 10/22/2008 Previous Surgical History PAST SURGICAL HISTORY Procedure Laterality Date APPENDECTOMY ARTHRP KNE CONDYLEANDPLATU MEDIALANDLAT COMPARTMENTS Right 08/16/2016 Knee replacement, total BIOPSY CERVIX SINGLE/MULT/EXCISION OF LESION SPX 87 BREAST BIOPSY MAMOTOME LEFT 07/27/05 right breast BREAST BIOPSY MAMOTOME LEFT 07/27/05 right breast BREAST FINE NEEDLE ASPIRATION 07/17/06 U/S FNA UOQ left breast lumpectomy site BX/EXC LYMPH NODE OPEN DEEP AXILLARY NODE 08/15/2005 RIGHT CARDIAC CATHETERIZATION HX 1998 CHOLECYSTECTOMY Cholecystectomy COLONOSCOPY - DIAGNOSTIC 06/27/87 COLONOSCOPY FLX DX W/COLLJ SPEC WHEN PFRMD 04/10/2006 Colonoscopy-repeat in CORRECT BUNION,SIMPLE DILATION AND CURETTAGE DXAND/THER NONOBSTETRIC Dilation AND curettage FNA WITH IMAGING 03/04/12 U/S FNA bilateral thyroid nodules FNA WITH IMAGING 03/16/12 U/S FNA left thyroid nodule HYSTERECTOMY HX 2007 TVH, USVVS, TOT INJ RADIOACTIVE TRACER FOR ID OF SENTINEL NODE 08/15/2005 RIGHT LAMINECTOMY,>2 SGMT,LUMBAR 10/26/2011 L2-5 decompression AND fusion LAPS ABD PRTMANDOMENTUM DX W/WO SPEC BR/WA SPX Laparoscopy excision of ovarian cyst LEFT HEART CATH,PERCUTANEOUS 04/27 LIG/TRNSXJ FLP TUBE ABDL/VAG APPR UNI/BI Tubal ligation MAMMOGRAM NEEDLE LOC LEFT 08/15/2005 RIGHT MASTECTOMY PARTIAL 08/15/2005 RIGHT PARATHYROIDECTOMY/EXPLORATION PARATHYROIDS 04/16/12 PREOP PLACEMENT NEEDLE LOC 08/15/2005 RIGHT SIGMOIDOSCOPY FLX DX W/COLLJ SPEC BR/WA IF PFRMD 01/2000 Sigmoidoscopy, flexible THYROIDECTOMY TOTAL/COMPLETE 04/16/12 total Family History FAMILY HISTORY Problem Relation Age of Onset Breast Cancer Mother 37 Heart Father Breast Cancer Maternal Grandmother Diabetes Brother Colon Cancer Paternal Aunt Patient Allergies ALLERGIES Allergen Reactions Amoxicillin Hives Duricef [Cefadroxil] Hives Floxin [Ofloxacin] Hives Grass Pollen [place] Needle Oil Current Medications Current Outpatient Medications on File Prior to Visit Medication Sig busPIRone (BUSPAR) 10 mg tablet Take 1 tablet by mouth twice daily. atorvastatin (LIPITOR) 20 mg tablet Take 1 tablet by mouth once daily. citalopram (CELEXA) 20 mg tablet Take 1 tablet by mouth once daily. levothyroxine (LEVOXYL) 100 mcg tablet Take 1 tablet by mouth once daily. Take on empty stomach. 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 No current facility-administered medications on file prior to visit. Social History Social History Tobacco Use Smoking status: Never Smokeless tobacco: Never Vaping Use Vaping Use: Nev (more content not included)...[facility] 09-07-2022 History of Present illness Narrative* Gavino Melendez MD - 09/07/2022 2:20 PM EST Chief Complaint Patient presents with: Hospital F/U: Fpc follow up. HPI Letty Leon is a 82 year old female who presents here today for a Fpc follow up. Pt here today with her son for a [place] discharge. Pt was admitted into [facility] due to UTI, low BP, Dementia and recurrent falls. Pt was admitted from 08/14/22 and was stable for discharge to SNF on 08/16/22. Pt recently discharged from [facility] on 09/03/22. Nima unsure what the patient did while in [place], Dr. Gann told him she looked good, Nursing said she did well and Therapy said she did good.Before discharged pt did fall out of bed. When pt was discharged home, Nima states she almost fell in the kitchen but did not. Pt here today in a wheelchair, declines walking. Pt has to use a walker with assistance in order toambulate. They have a lift chair at home, and are getting a hospital bed. Working on getting Home Health assistance also. Right now Nima and his daughter are providing care for Letty. Pt was having issues of confusion and being disoriented. Nima states that this has seemed to have gotten worse again. Nima spoke with WILMER Alcocer at [place] and they were ordering hospital bed and faxing it over to [facility] Past medical history, appointments, medications, allergies reviewed. 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 VITAMIN D DEFICIENCY NOS 10/22/2008 Previous Surgical History PAST SURGICAL HISTORY Procedure Laterality Date APPENDECTOMY ARTHRP KNE CONDYLE&PLATU MEDIAL&LAT COMPARTMENTS Right 08/16/2016 Knee replacement, total BIOPSY CERVIX SINGLE/MULT/EXCISION OF LESION SPX 87 BREAST BIOPSY MAMOTOME LEFT 07/27/05 right breast BREAST BIOPSY MAMOTOME LEFT 07/27/05 right breast BREAST FINE NEEDLE ASPIRATION 07/17/06 U/S FNA UOQ left breast lumpectomy site BX/EXC LYMPH NODE OPEN DEEP AXILLARY NODE 08/15/2005 RIGHT CARDIAC CATHETERIZATION HX 1998 CHOLECYSTECTOMY Cholecystectomy COLONOSCOPY - DIAGNOSTIC 06/27/87 COLONOSCOPY FLX DX W/COLLJ SPEC WHEN PFRMD 04/10/2006 Colonoscopy-repeat in CORRECT BUNION,SIMPLE DILATION & CURETTAGE DX&/THER NONOBSTETRIC Dilation & curettage FNA WITH IMAGING 03/04/12 U/S FNA bilateral thyroid nodules FNA WITH IMAGING 03/16/12 U/S FNA left thyroid nodule HYSTERECTOMY HX 2007 TVH, USVVS, TOT INJ RADIOACTIVE TRACER FOR ID OF SENTINEL NODE 08/15/2005 RIGHT LAMINECTOMY,>2 SGMT,LUMBAR 10/26/2011 L2-5 decompression & fusion LAPS ABD PRTM&OMENTUM DX W/WO SPEC BR/WA SPX Laparoscopy excision of ovarian cyst LEFT HEART CATH,PERCUTANEOUS 04/27 LIG/TRNSXJ FLP TUBE ABDL/VAG APPR UNI/BI Tubal ligation MAMMOGRAM NEEDLE LOC LEFT 08/15/2005 RIGHT MASTECTOMY PARTIAL 08/15/2005 RIGHT PARATHYROIDECTOMY/EXPLORATION PARATHYROIDS 04/16/12 PREOP PLACEMENT NEEDLE LOC 08/15/2005 RIGHT SIGMOIDOSCOPY FLX DX W/COLLJ SPEC BR/WA IF PFRMD 01/2000 Sigmoidoscopy, flexible THYROIDECTOMY TOTAL/COMPLETE 04/16/12 total Family History FAMILY HISTORY Problem Relation Age of Onset Breast Cancer Mother 37 Heart Father Breast Cancer Maternal Grandmother Diabetes Brother Colon Cancer Paternal Aunt Patient Allergies ALLERGIES Allergen Reactions Amoxicillin Hives Duricef [Cefadroxil] Hives Floxin [Ofloxacin] Hives Grass Pollen [place] Needle Oil Current Medications Current Outpatient Medications on File Prior to Visit Medication Sig busPIRone (BUSPAR) 10 mg tablet Take 1 tablet by mouth twice daily. atorvastatin (LIPITOR) 20 mg tablet Take 1 tablet by mouth once daily. citalopram (CELEXA) 20 mg tablet Take 1 tablet by mouth once daily. levothyroxine (LEVOXYL) 100 mcg tablet Take 1 tablet by mouth once daily. Take on empty stomach. 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 No current facility-administered medications on file prior to visit. Social History Social History Tobacco Use Smoking status: Never Smokeless tobacco: Never Vaping Use Vaping Use: Never used Substance Use Topics Alcohol use: No Drug use: No EXAM: BP 94/62 (BP Site: Left Arm, BP Position: Sitting, BP Cuff Size: Regular Adult) Pulse 60 Resp 16 General Appearance: Wheelchair and alert, NAD. Lungs: Lungs clear to auscultation. No wheezing, rhonchi, rales.. Heart: RRR without murmur, gallop, or rubs. No ectopy. Health Maintenance List COVID-19 VACCINE(1) Never done DTAP,TDAP,TD(1 - Tdap) due on 05/28/2010 SHINGRIX VACCINE(2 of 3) due on 06/09/2011 ADVANCE DIRECTIVE DISCUSSION due on 08/27/2022 DIABETES SCREEN due on 06/24/2025 BONE DENSITY Completed INFLUENZA Completed PNEUMOCOCCAL: 65+ Completed Data reviewed Hosp records ASSESSMENT/PLAN: 1. Essential hypertension - ICD9: 401.9, ICD10: I10 (primary diagnosis) - good control - Goal of BP <130/80 2. Dementia without behavioral disturbance (HCC) - ICD9: 294.20, ICD10: F03.90 Symptomatic care 3. Hyperlipidemia, unspecified hyperlipidemia type - ICD9: 272.4, ICD10: E78.5 4. Anxiety and depression - ICD9: 300.00, 311, ICD10: F41.9, F32.A Continue current medications. Follow up in 3 months as previously scheduled Medical Decision Making: Problems: Moderate: 2+ stable chronic illnesses Risk: Moderate: Drug management Medical Decision Making Level: 4 - Moderate Gavino Melendez MD documented in this encounterMer[facility]12-[facility] NoteHNO ID: [id number] Author: Jaren Montes APRN.FIELD TECHNICAL ASSISTANT Service: ? Author Type: Nurse Practitioner Type: Progress Notes Filed: 08/14/2022 1:55 PM Note Text: Chief Complaint Patient presents with: Multiple falls: X 1 week HPI Letty Leon is a 82 year old female who presents here today for Above Complaints. Son and granddaughter is here with us. Here for complaints of multiple falls in the past 1 week. Family remarks that she fell twice. Once when getting up from her wheelchair. Today, BP is low at 74/48. This was a blood pressure that was rechecked, previous blood pressure was systolically in the 60s. She is not prescribed or taking any medications that would cause lowering of blood pressure. Had a normal CBC on 06/24/2022. Family believes that she is more disoriented than normal. She did suffer an abrasion to the right forearm. Granddaughter cleansing and placing Neosporin. Family has remarked that she has not been drinking fluids like she usually does. Not asking for any water. Leaving water glasses half-full. Son remarks that she has a pacemaker. Letty was unable to get out of her wheelchair today. Past medical history, appointments, medications, allergies reviewed. EXAM: BP (!) 76/44 (BP Site: Left Arm) Pulse 78 Temp 37 ?C (98.6 ?F) (Left Tympanic) Resp 24 Wt 82.6 kg (182 lb) SpO2 97% BMI 26.88 kg/m? General Appearance: Appears weak, disoriented, moaning at times Oropharynx: Mucosa is dry. Lungs: Lungs clear to auscultation. No wheezing, rhonchi, rales.. Heart: RRR without murmur, gallop, or rubs. No ectopy. Component Latest Ref Rng AND Units 06/24/2022 Protein, Total 6.3 - 8.0 g/dL 7.0 Albumin 3.9 - 4.9 g/dL 4.2 Calcium 8.5 - 10.2 mg/dL 9.3 Bilirubin, Total 0.2 - 1.3 mg/dL 0.7 Alkaline Phosphatase 34 - 123 U/L 123 AST 13 - 35 U/L 22 ALT 7 - 38 U/L 10 Glucose 74 - 99 mg/dL 75 BUN 7 - 21 mg/dL 14 Creatinine 0.58 - 0.96 mg/dL 1.07 (H) Sodium 136 - 144 mmol/L 142 Potassium 3.7 - 5.1 mmol/L 4.2 Chloride 97 - 105 mmol/L 104 CO2 22 - 30 mmol/L 24 Anion Gap 9 - 18 mmol/L 14 eGFR >=60 mL/min/1.73mA? 52 (L) WBC 3.70 - 11.00 k/uL 6.64 RBC 3.90 - 5.20 m/uL 4.21 Hemoglobin 11.5 - 15.5 g/dL 12.9 Hematocrit 36.0 - 46.0 % 42.0 MCV 80.0 - 100.0 fL 99.8 MCH 26.0 - 34.0 pg 30.6 MCHC 30.5 - 36.0 g/dL 30.7 RDW-CV 11.5 - 15.0 % 13.2 Platelet Count 150 - 400 k/uL 216 MPV 9.0 - 12.7 fL 11.7 Absolute nRBC <0.01 k/uL <0.01 TSH 0.270 - 4.200 mIU/L 0.595 ASSESSMENT/PLAN: 1. Recurrent falls - ICD9: V15.88, ICD10: R29.6 (primary diagnosis) -History of falls but more recently becoming more frequent. Likely secondary to #3. 2. Generalized weakness - ICD9: 780.79, ICD10: R53.1 3. Hypotension, unspecified hypotension type - ICD9: 458.9, ICD10: I95.9 -No contributing factors such as antihypertensive medications. She is not on any other medications that would cause this. Likely cause of her recurrent falls. Patient needs higher level of care including likely IV fluids, more in-depth work-up in a timely fashion. 4. Confusion - ICD9: 298.9, ICD10: R41.0 -Has baseline confusion, more present at this time. Jaren Montes APRN.BRENNA Discussed with granddaughter and son that Letty needs a more immediate work-up and intervention which would best take place at emergency room in hospital. I offered EMS but family declined and will transport themselves. [facility] ER portal updated This note was partly generated using [employer] voice recognition dictation and may contain some misspelled or inaccurate words missed on review.[facility]12-19-2022 History of Present illness Narrative* Jaren Montes APRN.BRENNA - 08/14/2022 1:25 PM EST Chief Complaint Patient presents with: Multiple falls: X 1 week HPI Letty Leon is a 82 year old female who presents here today for Above Complaints. Son and granddaughter is here with us. Here for complaints of multiple falls in the past 1 week. Family remarks that she fell twice. Once when getting up from her wheelchair. Today, BP is low at 74/48. This was a blood pressure that was rechecked, previous blood pressure was systolically in the 60s. She is not prescribed or taking any medications that would cause lowering of blood pressure. Had a normal CBC on 06/24/2022. Family believes that she is more disoriented than normal. She did suffer an abrasion to the right forearm. Granddaughter cleansing and placing Neosporin. Family has remarked that she has not been drinking fluids like she usually does. Not asking for any water. Leaving water glasses half-full. Son remarks that she has a pacemaker. Letty was unable to get out of her wheelchair today. Past medical history, appointments, medications, allergies reviewed. EXAM: BP (!) 76/44 (BP Site: Left Arm) Pulse 78 Temp 37 C (98.6 F) (Left Tympanic) Resp 24 Wt 82.6 kg (182 lb) SpO2 97% BMI 26.88 kg/m General Appearance: Appears weak, disoriented, moaning at times Oropharynx: Mucosa is dry. Lungs: Lungs clear to auscultation. No wheezing, rhonchi, rales.. Heart: RRR without murmur, gallop, or rubs. No ectopy. Component Latest Ref Rng & Units 06/24/2022 Protein, Total 6.3 - 8.0 g/dL 7.0 Albumin 3.9 - 4.9 g/dL 4.2 Calcium 8.5 - 10.2 mg/dL 9.3 Bilirubin, Total 0.2 - 1.3 mg/dL 0.7 Alkaline Phosphatase 34 - 123 U/L 123 AST 13 - 35 U/L 22 ALT 7 - 38 U/L 10 Glucose 74 - 99 mg/dL 75 BUN 7 - 21 mg/dL 14 Creatinine 0.58 - 0.96 mg/dL 1.07 (H) Sodium 136 - 144 mmol/L 142 Potassium 3.7 - 5.1 mmol/L 4.2 Chloride 97 - 105 mmol/L 104 CO2 22 - 30 mmol/L 24 Anion Gap 9 - 18 mmol/L 14 eGFR >=60 mL/min/1.73m 52 (L) WBC 3.70 - 11.00 k/uL 6.64 RBC 3.90 - 5.20 m/uL 4.21 Hemoglobin 11.5 - 15.5 g/dL 12.9 Hematocrit 36.0 - 46.0 % 42.0 MCV 80.0 - 100.0 fL 99.8 MCH 26.0 - 34.0 pg 30.6 MCHC 30.5 - 36.0 g/dL 30.7 RDW-CV 11.5 - 15.0 % 13.2 Platelet Count 150 - 400 k/uL 216 MPV 9.0 - 12.7 fL 11.7 Absolute nRBC <0.01 k/uL <0.01 TSH 0.270 - 4.200 mIU/L 0.595 ASSESSMENT/PLAN: 1. Recurrent falls - ICD9: V15.88, ICD10: R29.6 (primary diagnosis) -History of falls but more recently becoming more frequent. Likely secondary to #3. 2. Generalized weakness - ICD9: 780.79, ICD10: R53.1 3. Hypotension, unspecified hypotension type - ICD9: 458.9, ICD10: I95.9 -No contributing factors such as antihypertensive medications. She is not on any other medications that would cause this. Likely cause of her recurrent falls. Patient needs higher level of care including likely IV fluids, more in-depth work-up in a timely fashion. 4. Confusion - ICD9: 298.9, ICD10: R41.0 -Has baseline confusion, more present at this time. Jaren Montes APRN.BRENNA Discussed with granddaughter and son that Letty needs a more immediate work-up and intervention which would best take place at emergency room in hospital. I offered EMS but family declined and will transport themselves. [facility] ER portal updated This note was partly generated using [employer] voice recognition dictation and may contain some misspelled or inaccurate words missed on review. documented in this encounterMer[facility]11-04-2022 Miscellaneous Notes* Telephone Encounter - Tanya Rojas Ma - 06/30/2022 4:54 PM EDT Nima notified. Tanya Rojas Ma * Telephone Encounter - aGvino Melendez MD - 06/30/2022 4:49 PM EDT Please notify patient's son that her lab results look OK; stay on the same medications and follow up as planned Gavino Melendez MD documented in this encounterMercer [facility]10-29-2022 NoteHNO ID: [id number] Author: Gavino Melendez MD Service: ? Author Type: Physician Type: Progress Notes Filed: 06/24/2022 12:10 PM Note Text: Chief Complaint Follow up HPI Letty Leon is a 82 year old female who presents here today for follow up. Pt here today for face to face visit per [facility] so that pt can continue with Physical Therapy. Getting PT for strengthening, it is helping her improve mobility. Anxiety/Depression - On Celexa 20 mg and Buspar 10 mg 1 tab po twice daily. Pt feels that she is doing OK, but at times not sure. Still has some anxiety. Appetite is improved/ Lipids - Stable on current regimen of Atorvastatin 20 mg once daily, without side effects. Monitoring weight. Stable eating meals that are cooked for her. Thyroid - Stable on current regimen of Levothyroxine 100 mcg once daily. Denies any missed dosages. Cardio - Follows with Dr. Zimmerman. Hx of Pacemaker placed in August. Denies any chest pain, sob or dizziness. Past medical history, appointments, medications, allergies reviewed. 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 VITAMIN D DEFICIENCY NOS 10/22/2008 Previous Surgical History PAST SURGICAL HISTORY Procedure Laterality Date APPENDECTOMY ARTHRP KNE CONDYLEANDPLATU MEDIALANDLAT COMPARTMENTS Right 08/16/2016 Knee replacement, total BIOPSY CERVIX SINGLE/MULT/EXCISION OF LESION SPX 87 BREAST BIOPSY MAMOTOME LEFT 07/27/05 right breast BREAST BIOPSY MAMOTOME LEFT 07/27/05 right breast BREAST FINE NEEDLE ASPIRATION 07/17/06 U/S FNA UOQ left breast lumpectomy site BX/EXC LYMPH NODE OPEN DEEP AXILLARY NODE 08/15/2005 RIGHT CARDIAC CATHETERIZATION HX 1998 CHOLECYSTECTOMY Cholecystectomy COLONOSCOPY - DIAGNOSTIC 06/27/87 COLONOSCOPY FLX DX W/COLLJ SPEC WHEN PFRMD 04/10/2006 Colonoscopy-repeat in CORRECT BUNION,SIMPLE DILATION AND CURETTAGE DXAND/THER NONOBSTETRIC Dilation AND curettage FNA WITH IMAGING 03/04/12 U/S FNA bilateral thyroid nodules FNA WITH IMAGING 03/16/12 U/S FNA left thyroid nodule HYSTERECTOMY HX 2008 TVH, USVVS, TOT INJ RADIOACTIVE TRACER FOR ID OF SENTINEL NODE 08/15/2005 RIGHT LAMINECTOMY,>2 SGMT,LUMBAR 10/26/2011 L2-5 decompression AND fusion LAPS ABD PRTMANDOMENTUM DX W/WO SPEC BR/WA SPX Laparoscopy excision of ovarian cyst LEFT HEART CATH,PERCUTANEOUS 04/27 LIG/TRNSXJ FLP TUBE ABDL/VAG APPR UNI/BI Tubal ligation MAMMOGRAM NEEDLE LOC LEFT 08/15/2005 RIGHT MASTECTOMY PARTIAL 08/15/2005 RIGHT PARATHYROIDECTOMY/EXPLORATION PARATHYROIDS 04/16/12 PREOP PLACEMENT NEEDLE LOC 08/15/2005 RIGHT SIGMOIDOSCOPY FLX DX W/COLLJ SPEC BR/WA IF PFRMD 01/2000 Sigmoidoscopy, flexible THYROIDECTOMY TOTAL/COMPLETE 04/16/12 total Family History FAMILY HISTORY Problem Relation Age of Onset Breast Cancer Mother 37 Heart Father Breast Cancer Maternal Grandmother Diabetes Brother Colon Cancer Paternal Aunt Patient Allergies ALLERGIES Allergen Reactions Amoxicillin Hives Duricef [Cefadroxil] Hives Floxin [Ofloxacin] Hives Grass Pollen [place] Needle Oil Current Medications Current Outpatient Medications on File Prior to Visit Medication Sig busPIRone (BUSPAR) 10 mg tablet Take 1 tablet by mouth twice daily. atorvastatin (LIPITOR) 20 mg tablet Take 1 tablet by mouth once daily. citalopram (CELEXA) 20 mg tablet Take 1 tablet by mouth once daily. levothyroxine (LEVOXYL) 100 mcg tablet Take 1 tablet by mouth once daily. Take on empty stomach. 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 No current facility-administered medications on file prior to visit. Social History Social History Tobacco Use Smoking status: Never Smokeless tobacco: Never Vaping Use Vaping Use: Never used Substance Use Topics Alcohol use: No Drug use: No EXAM: There were no vitals taken for this visit. General Appearance: Well appearing, alert, in no acute distress, well-hydrated, well nourished.. Lungs: Lungs clear to auscultation. No wheezing, rhonchi, rales.. Heart: RRR without murmur, gallop, or rubs. No ectopy. Health Maintenance List COVID- (more content not included)...[facility]10-29-2022 History of Present illness Narrative* Gavino Melendez MD - 06/24/2022 8:20 AM EDT Chief Complaint Follow up HPI Letty Leon is a 82 year old female who presents here today for follow up. Pt here today for face to face visit per [facility] so that pt can continue with PhysicalTherapy. Getting PT for strengthening, it is helping her improve mobility. Anxiety/Depression - On Celexa 20 mg and Buspar 10 mg 1 tab po twice daily. Pt feels that she is doing OK, but at times not sure. Still has some anxiety. Appetite is improved/ Lipids - Stable on current regimen of Atorvastatin 20 mg once daily, without side effects. Monitoring weight. Stable eating meals that are cooked for her. Thyroid - Stable on current regimen of Levothyroxine 100 mcg once daily. Denies any missed dosages. Cardio - Follows with Dr. Zimmerman. Hx of Pacemaker placed in August. Denies any chest pain, sob or dizziness. Past medical history, appointments, medications, allergies reviewed. 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 VITAMIN D DEFICIENCY NOS 10/22/2008 Previous Surgical History PAST SURGICAL HISTORY Procedure Laterality Date APPENDECTOMY ARTHRP KNE CONDYLE&PLATU MEDIAL&LAT COMPARTMENTS Right 08/16/2016 Knee replacement, total BIOPSY CERVIX SINGLE/MULT/EXCISION OF LESION SPX 87 BREAST BIOPSY MAMOTOME LEFT 07/27/05 right breast BREAST BIOPSY MAMOTOME LEFT 07/27/05 right breast BREAST FINE NEEDLE ASPIRATION 07/17/06 U/S FNA UOQ left breast lumpectomy site BX/EXC LYMPH NODE OPEN DEEP AXILLARY NODE 08/15/2005 RIGHT CARDIAC CATHETERIZATION HX 1998 CHOLECYSTECTOMY Cholecystectomy COLONOSCOPY - DIAGNOSTIC 06/27/87 COLONOSCOPY FLX DX W/COLLJ SPEC WHEN PFRMD 04/10/2006 Colonoscopy-repeat in CORRECT BUNION,SIMPLE DILATION & CURETTAGE DX&/THER NONOBSTETRIC Dilation & curettage FNA WITH IMAGING 03/04/12 U/S FNA bilateral thyroid nodules FNA WITH IMAGING 03/16/12 U/S FNA left thyroid nodule HYSTERECTOMY HX 2007 TVH, USVVS, TOT INJ RADIOACTIVE TRACER FOR ID OF SENTINEL NODE 08/15/2005 RIGHT LAMINECTOMY,>2 SGMT,LUMBAR 10/26/2011 L2-5 decompression & fusion LAPS ABD PRTM&OMENTUM DX W/WO SPEC BR/WA SPX Laparoscopy excision of ovarian cyst LEFT HEART CATH,PERCUTANEOUS 04/27 LIG/TRNSXJ FLP TUBE ABDL/VAG APPR UNI/BI Tubal ligation MAMMOGRAM NEEDLE LOC LEFT 08/15/2005 RIGHT MASTECTOMY PARTIAL 08/15/2005 RIGHT PARATHYROIDECTOMY/EXPLORATION PARATHYROIDS 04/16/12 PREOP PLACEMENT NEEDLE LOC 08/15/2005 RIGHT SIGMOIDOSCOPY FLX DX W/COLLJ SPEC BR/WA IF PFRMD 01/2000 Sigmoidoscopy, flexible THYROIDECTOMY TOTAL/COMPLETE 04/16/12 total Family History FAMILY HISTORY Problem Relation Age of Onset Breast Cancer Mother 37 Heart Father Breast Cancer Maternal Grandmother Diabetes Brother Colon Cancer Paternal Aunt Patient Allergies ALLERGIES Allergen Reactions Amoxicillin Hives Duricef [Cefadroxil] Hives Floxin [Ofloxacin] Hives Grass Pollen [place] Needle Oil Current Medications Current Outpatient Medications on File Prior to Visit Medication Sig busPIRone (BUSPAR) 10 mg tablet Take 1 tablet by mouth twice daily. atorvastatin (LIPITOR) 20 mg tablet Take 1 tablet by mouth once daily. citalopram (CELEXA) 20 mg tablet Take 1 tablet by mouth once daily. levothyroxine (LEVOXYL) 100 mcg tablet Take 1 tablet by mouth once daily. Take on empty stomach. 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 No current facility-administered medications on file prior to visit. Social History Social History Tobacco Use Smoking status: Never Smokeless tobacco: Never Vaping Use Vaping Use: Never used Substance Use Topics Alcohol use: No Drug use: No EXAM: There were no vitals taken for this visit. General Appearance: Well appearing, alert, in no acute distress, well-hydrated, well nourished.. Lungs: Lungs clear to auscultation. No wheezing, rhonchi, rales.. Heart: RRR without murmur, gallop, or rubs. No ectopy. Health Maintenance List COVID-19 VACCINE(1) Never done DTAP,TDAP,TD(1 - Tdap) due on 05/28/2010 SHINGRIX VACCINE(2 of 3) due on 06/09/2011 INFLUENZA(1) due on 04/27/2022 DIABETES SCREEN due on 01/25/2025 BONE DENSITY Completed ADVANCE DIRECTIVE DISCUSSION Completed PNEUMOCOCCAL: 65+ Completed Data reviewed None ASSESSMENT/PLAN: 1. Essential hypertension - ICD9: 401.9, ICD10: I10 (primary diagnosis) - good control - Goal of BP <140/90 - COMP METABOLIC PANEL - CBC 2. Hyperlipidemia, unspecified hyperlipidemia type - ICD9: 272.4, ICD10: E78.5 - good control - Continue current medication. 3. Stage 3a chronic kidney disease (HCC) - ICD9: 585.3, ICD10: N18.31 Check labs today - COMP METABOLIC PANEL - CBC 4. Hypothyroidism, iatrogenic - ICD9: 244.3, ICD10: E03.2 - Instructed patient on importance of taking on an empty stomach either first thing in the morning or at bedtime. - check TSH today - continue current dose of Synthroid 0.100 mg - TSH BLD 5. Arthritis of knee - ICD9: 716.96, ICD10: M17.10 Continue PT 6. Anxiety and depression - ICD9: 300.00, 311, ICD10: F41.9, F32.A Continue current medications. 7. Flu vaccine need - ICD9: V04.81, ICD10: Z23 - INFLUENZA SEASONAL QUADRIVALENT HIGH DOSE AGE 65+ Check labs today; notify of results Follow up in 6 months Medical Decision Making: Problems: Moderate: 2+ stable chronic illnesses Data: Unique test(s) ordered: 3+ Risk: Moderate: Drug management Medical Decision Making Level: 4 - Moderate Gavino Melendez MD documented [facility] Miscellaneous Notes* Telephone Encounter - Ancelmo Garcias MA - 05/30/2022 3:57 PM EDT Order faxed to # given. Son notified. Ancelmo Garcias MA * Telephone Encounter - Gavino Melendez MD - 05/30/2022 3:44 PM EDT Home PT ordered Gavino Melendez MD * Telephone Encounter - Carey Bell LPN - 05/30/2022 12:17 PM EDT Son Nima called to request orders be sent to [facility] for Physical Therapy. Pt has had them in the past. Nima states pt needs PT to help get her moving and walking. Pt had a knee replacement in the past and starting to get stiff. Please review and advise nima once the orders have been sent. [facility] [phone]. FAX: [phone] Carey Bell LPN documented in this encounterMer[facility]06-06-2022 NoteHNO ID: [id number] Author: Gavino Melendez MD Service: ? Author Type: Physician Type: Progress Notes Filed: 01/30/2022 3:26 PM Note Text: Chief Complaint Patient presents with: Follow Up HPI Letty Leon is a 81 year old female who presents here today for a 2 month follow up. Pt here today with her son, Nima for a 2 month follow up. Nima is pt's Caregiver. ? Anxiety/Depression - At previous OV pt's Celexa was decreased from 40 mg to 20 mg and Buspar 10 mg 1 tab po twice daily was added due to Nima noticing no improvement on previous regimen. Pt feels that she is doing better, but at times not sure. Feels she is doing better then when she was here last. ? Lipids - Stable on current regimen of Atorvastatin 20 mg once daily, without side effects. Monitoring weight. Stable eating meals that are cooked for her. ? Thyroid - Stable on current regimen of Levothyroxine 100 mcg once daily. Denies any missed dosages. ? Cardio - Follows with Dr. Zimmerman. Hx of Pacemaker placed in August. Denies any chest pain, sob or dizziness. Nima notes that his daughter found a sore, near groin area/diaper area. This was not their on Sunday, requested to have this checked. Pt notes that she does a good job taking care of her. HM - Adv Dir/Living Will scanned. Past medical history, appointments, medications, allergies reviewed. 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 - VITAMIN D DEFICIENCY NOS 10/22/2008 Previous Surgical History PAST SURGICAL HISTORY Procedure Laterality Date - APPENDECTOMY - ARTHRP KNE CONDYLEANDPLATU MEDIALANDLAT COMPARTMENTS Right 08/16/2016 Knee replacement, total - BIOPSY CERVIX SINGLE/MULT/EXCISION OF LESION SPX 87 - BREAST BIOPSY MAMOTOME LEFT 07/27/05 right breast - BREAST BIOPSY MAMOTOME LEFT 07/27/05 right breast - BREAST FINE NEEDLE ASPIRATION 07/17/06 U/S FNA UOQ left breast lumpectomy site - BX/EXC LYMPH NODE OPEN DEEP AXILLARY NODE 08/15/2005 RIGHT - CARDIAC CATHETERIZATION HX 1998 - CHOLECYSTECTOMY Cholecystectomy - COLONOSCOPY - DIAGNOSTIC 06/27/87 - COLONOSCOPY FLX DX W/COLLJ SPEC WHEN PFRMD 04/10/2006 Colonoscopy-repeat in - CORRECT BUNION,SIMPLE - DILATION AND CURETTAGE DXAND/THER NONOBSTETRIC Dilation AND curettage - FNA WITH IMAGING 03/04/12 U/S FNA bilateral thyroid nodules - FNA WITH IMAGING 03/16/12 U/S FNA left thyroid nodule - HYSTERECTOMY HX 2007 TVH, USVVS, TOT - INJ RADIOACTIVE TRACER FOR ID OF SENTINEL NODE 08/15/2005 RIGHT - LAMINECTOMY,>2 SGMT,LUMBAR 10/26/2011 L2-5 decompression AND fusion - LAPS ABD PRTMANDOMENTUM DX W/WO SPEC BR/WA SPX Laparoscopy excision of ovarian cyst - LEFT HEART CATH,PERCUTANEOUS 04/27 - LIG/TRNSXJ FLP TUBE ABDL/VAG APPR UNI/BI Tubal ligation - MAMMOGRAM NEEDLE LOC LEFT 08/15/2005 RIGHT - MASTECTOMY PARTIAL 08/15/2005 RIGHT - PARATHYROIDECTOMY/EXPLORATION PARATHYROIDS 04/16/12 - PREOP PLACEMENT NEEDLE LOC 08/15/2005 RIGHT - SIGMOIDOSCOPY FLX DX W/COLLJ SPEC BR/WA IF PFRMD 01/2000 Sigmoidoscopy, flexible - THYROIDECTOMY TOTAL/COMPLETE 04/16/12 total Family History FAMILY HISTORY Problem Relation Age of Onset - Breast Cancer Mother 37 - Heart Father - Breast Cancer Maternal Grandmother - Diabetes Brother - Colon Cancer Paternal Aunt Patient Allergies ALLERGIES Allergen Reactions - Amoxicillin Hives - Duricef [Cefadroxil] Hives - Floxin [Ofloxacin] Hives - Grass Pollen - [place] Needle Oil Current Medications Current Outpatient Medications on File Prior to Visit Medication Sig - atorvastatin (LIPITOR) 20 mg tablet Take 1 tablet by mouth once daily. - citalopram (CELEXA) 20 mg tablet Take 1 tablet by mouth once daily. - levothyroxine (LEVOXYL) 100 mcg tablet Take 1 tablet by mouth once daily. Take on empty stomach. For Thyroid - busPIRone (BUSPAR) 10 mg tablet Take 1 tablet by mouth twice daily. 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 No current facility-administered medications on file prior to visit. Social History Social History Tobacco Use - Smoking status: Never Smoker (more content not included)...[facility]06-06-2022 History of Present illness Narrative* Gavino Melendez MD - 01/30/2022 1:20 PM EDT Chief Complaint Patient presents with: Follow Up HPI Letty Leon is a 81 year old female who presents here today for a 2 month follow up. Pt here today with her son, Nima for a 2 month follow up. Nima is pt's Caregiver. Anxiety/Depression - At previous OV pt's Celexa was decreased from 40 mg to 20 mg and Buspar 10 mg 1 tab po twice daily was added due to Nima noticing no improvement on previous regimen. Pt feels that she is doing better, but at times not sure. Feels she is doing better then when she was here last. Lipids - Stable on current regimen of Atorvastatin 20 mg once daily, without side effects. Monitoring weight. Stable eating meals that are cooked for her. Thyroid - Stable on current regimen of Levothyroxine 100 mcg once daily. Denies any missed dosages. Cardio - Follows with Dr. Zimmerman. Hx of Pacemaker placed in August. Denies any chest pain, sob or dizziness. Nima notes that his daughter found a sore, near groin area/diaper area. This was not their on Sunday, requested to have this checked. Pt notes that she does a good job taking care of her. HM - Adv Dir/Living Will scanned. Past medical history, appointments, medications, allergies reviewed. 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 VITAMIN D DEFICIENCY NOS 10/22/2008 Previous Surgical History PAST SURGICAL HISTORY Procedure Laterality Date APPENDECTOMY ARTHRP KNE CONDYLE&PLATU MEDIAL&LAT COMPARTMENTS Right 08/16/2016 Knee replacement, total BIOPSY CERVIX SINGLE/MULT/EXCISION OF LESION SPX 87 BREAST BIOPSY MAMOTOME LEFT 07/27/05 right breast BREAST BIOPSY MAMOTOME LEFT 07/27/05 right breast BREAST FINE NEEDLE ASPIRATION 07/17/06 U/S FNA UOQ left breast lumpectomy site BX/EXC LYMPH NODE OPEN DEEP AXILLARY NODE 08/15/2005 RIGHT CARDIAC CATHETERIZATION HX 1998 CHOLECYSTECTOMY Cholecystectomy COLONOSCOPY - DIAGNOSTIC 06/27/87 COLONOSCOPY FLX DX W/COLLJ SPEC WHEN PFRMD 04/10/2006 Colonoscopy-repeat in CORRECT BUNION,SIMPLE DILATION & CURETTAGE DX&/THER NONOBSTETRIC Dilation & curettage FNA WITH IMAGING 03/04/12 U/S FNA bilateral thyroid nodules FNA WITH IMAGING 03/16/12 U/S FNA left thyroid nodule HYSTERECTOMY HX 2007 TVH, USVVS, TOT INJ RADIOACTIVE TRACER FOR ID OF SENTINEL NODE 08/15/2005 RIGHT LAMINECTOMY,>2 SGMT,LUMBAR 10/26/2011 L2-5 decompression & fusion LAPS ABD PRTM&OMENTUM DX W/WO SPEC BR/WA SPX Laparoscopy excision of ovarian cyst LEFT HEART CATH,PERCUTANEOUS 04/27 LIG/TRNSXJ FLP TUBE ABDL/VAG APPR UNI/BI Tubal ligation MAMMOGRAM NEEDLE LOC LEFT 08/15/2005 RIGHT MASTECTOMY PARTIAL 08/15/2005 RIGHT PARATHYROIDECTOMY/EXPLORATION PARATHYROIDS 04/16/12 PREOP PLACEMENT NEEDLE LOC 08/15/2005 RIGHT SIGMOIDOSCOPY FLX DX W/COLLJ SPEC BR/WA IF PFRMD 01/2000 Sigmoidoscopy, flexible THYROIDECTOMY TOTAL/COMPLETE 04/16/12 total Family History FAMILY HISTORY Problem Relation Age of Onset Breast Cancer Mother 37 Heart Father Breast Cancer Maternal Grandmother Diabetes Brother Colon Cancer Paternal Aunt Patient Allergies ALLERGIES Allergen Reactions Amoxicillin Hives Duricef [Cefadroxil] Hives Floxin [Ofloxacin] Hives Grass Pollen [place] Needle Oil Current Medications Current Outpatient Medications on File Prior to Visit Medication Sig atorvastatin (LIPITOR) 20 mg tablet Take 1 tablet by mouth once daily. citalopram (CELEXA) 20 mg tablet Take 1 tablet by mouth once daily. levothyroxine (LEVOXYL) 100 mcg tablet Take 1 tablet by mouth once daily. Take on empty stomach. For Thyroid busPIRone (BUSPAR) 10 mg tablet Take 1 tablet by mouth twice daily. COMPOUNDED PRESCRIPTION Powerstep orthotics (L85.9) Hyperkeratosis (primary encounter diagnosis) (M20.12) Acquired hallux valgus of left foot (M12.9) Arthropathy Cholecalciferol, Vitamin D3, (VITAMIN D) 1,000 unit cap Take 1,000 Units by mouth once daily. No current facility-administered medications on file prior to visit. Social History Social History Tobacco Use Smoking status: Never Smoker Smokeless tobacco: Never Used Vaping Use Vaping Use: Never used Substance Use Topics Alcohol use: No Drug use: No EXAM: BP 118/74 (BP Site: Left Arm, BP Position: Sitting, BP Cuff Size: Regular Adult) Pulse 68 Resp 16 General Appearance: Well appearing, alert, in no acute distress, well-hydrated, well nourished.. Skin: groin, buttocks region examined, no lesions seen. Lungs: Lungs clear to auscultation. No wheezing, rhonchi, rales.. Heart: RRR without murmur, gallop, or rubs. No ectopy. Health Maintenance List COVID-19 VACCINE(1) Never done DTAP,TDAP,TD(1 - Tdap) due on 05/28/2010 SHINGRIX VACCINE(2 of 3) due on 06/09/2011 ADVANCE DIRECTIVE DISCUSSION Never done DIABETES SCREEN due on 05/23/2024 BONE DENSITY Completed INFLUENZA Completed PNEUMOCOCCAL: 65+ Completed Data reviewed Appointment on 01/25/2022 Component Date Value Protein, Total 01/25/2022 7.0 Albumin 01/25/2022 4.5 Calcium, Total 01/25/2022 9.7 Bilirubin, Total 01/25/2022 0.5 Alkaline Phosphatase 01/25/2022 113 AST 01/25/2022 20 ALT 01/25/2022 11 Glucose 01/25/2022 102 (A) BUN 01/25/2022 24 (A) Creatinine 01/25/2022 1.11 (A) Sodium 01/25/2022 143 Potassium 01/25/2022 4.7 Chloride 01/25/2022 106 (A) CO2 01/25/2022 27 Anion Gap 01/25/2022 10 Estimated Glomerular Sriram* 01/25/2022 50 (A) Cholesterol, Total 01/25/2022 154 Triglyceride 01/25/2022 68 HDL Cholesterol 01/25/2022 64 Non HDL Cholesterol 01/25/2022 90 Fasting Time 01/25/2022 14 VLDL Cholesterol 01/25/2022 14 TC:HDL Ratio 01/25/2022 2.41 LDL Cholesterol 01/25/2022 76 LDL:HDL Ratio 01/25/2022 1.19 TSH 01/25/2022 0.238 (A) ASSESSMENT/PLAN: 1. Essential hypertension - ICD9: 401.9, ICD10: I10 (primary diagnosis) - good control - Continue current medication(s) - Goal of BP <140/90 - COMP METABOLIC PANEL - LIPID PANEL BASIC - CBC 2. Dementia without behavioral disturbance, unspecified dementia type (HCC) - ICD9: 294.20, ICD10: F03.90 Stable 3. Hyperlipidemia, unspecified hyperlipidemia type - ICD9: 272.4, ICD10: E78.5 - COMP METABOLIC PANEL - LIPID PANEL BASIC 4. Hypothyroidism, iatrogenic - ICD9: 244.3, ICD10: E03.2 - Instructed patient on importance of taking on an empty stomach either first thing in the morning or at bedtime. - continue current dose of Synthroid 0.100 mg TSH borderline low; will stay on same dose and monitor in 6 months - TSH BLD 5. Anxiety and depression - ICD9: 300.00, 311, ICD10: F41.9, F32.A Continue current medications. Follow up in 6 months Medical Decision Making: Problems: Moderate: 2+ stable chronic illnesses Risk: Moderate: Drug management Medical Decision Making Level: 4 - Moderate Gavino Melendez MD documented in this encounterMer[facility]05-[facility] Miscellaneous Notes* Telephone Encounter - Jaren Montes APRN.CNP - 12/29/2021 11:27 AM EDT The following approved medication requests have been transmitted electronically. Pending Prescriptions Disp Refills ATORVASTATIN 20 MG TABLET 90 tablet 3 Sig: Take 1 tablet by mouth once daily. IZABELLA: No Jaren Montes APRN.CNP * Telephone Encounter - Mary Gardiner Ma - 12/29/2021 11:12 AM EDT EFRAIN 11/28/21 NOV 01/30/22 Mary Gardiner Ma * Telephone Encounter - Ginny Huang - 12/29/2021 11:09 AM EDT Patient has been identified by name and date of : Yes Pending Prescriptions Disp Refills ATORVASTATIN 20 MG TABLET 90 tablet 3 Sig: Take 1 tablet by mouth once daily. IZABELLA: No RX INSTRUCTIONS: Patient aware RX escripted to mail away pharmacy. No need to notify patient. Ginny Huang documented in this encounterMer[facility]04-04-2022 NoteHNO ID: [id number] Author: Gavino Melendez MD Service: ? Author Type: Physician Type: Progress Notes Filed: 11/28/2021 5:33 PM Note Text: Chief Complaint Patient presents with: F/U 3 Month HPI Letty Leon is a 81 year old female who presents here today for a 3 month follow up. Pt here today for a 3 month follow up. Pt here today with her son, Nima who lives with her. Anxiety/Depression - On current regimen of Celexa 40 mg once daily. Pt son, Nima states that he's not really noticed any difference with the medication compared to Paxil. Pt still depressed, crying spells intermittently through out the day with episodes of anxiety. This was changed at the [place], they said she did better with this. Lipids - Stable on current regimen of Atorvastatin 20 mg once daily. Monitoring weight. Stable eating meals that are cooked. Thyroid - Stable on current regimen of Levothyroxine 100 mcg once daily. Denies any missed dosages. Pt was having pacemaker placed by Dr. Zimmerman in September 25, 2021. States that everything has been doing good. Had two checks over there. Past medical history, appointments, medications, allergies reviewed. 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 - VITAMIN D DEFICIENCY NOS 10/22/2008 Previous Surgical History PAST SURGICAL HISTORY Procedure Laterality Date - APPENDECTOMY - ARTHRP KNE CONDYLEANDPLATU MEDIALANDLAT COMPARTMENTS Right 08/16/2016 Knee replacement, total - BIOPSY CERVIX SINGLE/MULT/EXCISION OF LESION SPX 87 - BREAST BIOPSY MAMOTOME LEFT 07/27/05 right breast - BREAST BIOPSY MAMOTOME LEFT 07/27/05 right breast - BREAST FINE NEEDLE ASPIRATION 07/17/06 U/S FNA UOQ left breast lumpectomy site - BX/EXC LYMPH NODE OPEN DEEP AXILLARY NODE 08/15/2005 RIGHT - CARDIAC CATHETERIZATION HX 1998 - CHOLECYSTECTOMY Cholecystectomy - COLONOSCOPY - DIAGNOSTIC 06/27/87 - COLONOSCOPY FLX DX W/COLLJ SPEC WHEN PFRMD 04/10/2006 Colonoscopy-repeat in - CORRECT BUNION,SIMPLE - DILATION AND CURETTAGE DXAND/THER NONOBSTETRIC Dilation AND curettage - FNA WITH IMAGING 03/04/12 U/S FNA bilateral thyroid nodules - FNA WITH IMAGING 03/16/12 U/S FNA left thyroid nodule - HYSTERECTOMY HX 2007 TVH, USVVS, TOT - INJ RADIOACTIVE TRACER FOR ID OF SENTINEL NODE 08/15/2005 RIGHT - LAMINECTOMY,>2 SGMT,LUMBAR 10/26/2011 L2-5 decompression AND fusion - LAPS ABD PRTMANDOMENTUM DX W/WO SPEC BR/WA SPX Laparoscopy excision of ovarian cyst - LEFT HEART CATH,PERCUTANEOUS 04/27 - LIG/TRNSXJ FLP TUBE ABDL/VAG APPR UNI/BI Tubal ligation - MAMMOGRAM NEEDLE LOC LEFT 08/15/2005 RIGHT - MASTECTOMY PARTIAL 08/15/2005 RIGHT - PARATHYROIDECTOMY/EXPLORATION PARATHYROIDS 04/16/12 - PREOP PLACEMENT NEEDLE LOC 08/15/2005 RIGHT - SIGMOIDOSCOPY FLX DX W/COLLJ SPEC BR/WA IF PFRMD 01/2000 Sigmoidoscopy, flexible - THYROIDECTOMY TOTAL/COMPLETE 04/16/12 total Family History FAMILY HISTORY Problem Relation Age of Onset - Breast Cancer Mother 37 - Heart Father - Breast Cancer Maternal Grandmother - Diabetes Brother - Colon Cancer Paternal Aunt Patient Allergies ALLERGIES Allergen Reactions - Amoxicillin Hives - Duricef [Cefadroxil] Hives - Floxin [Ofloxacin] Hives - Grass Pollen - [place] Needle Oil Current Medications Current Outpatient Medications on File Prior to Visit Medication Sig - citalopram (CELEXA) 40 mg tablet Take 1 tablet by mouth once daily. - levothyroxine (LEVOXYL) 100 mcg tablet Take 1 tablet by mouth once daily. Take on empty stomach. For Thyroid - atorvastatin (LIPITOR) 20 mg tablet Take 1 tablet by mouth once daily. - COMPOUNDED PRESCRIPTION Powerstep orthotics (L85.9) Hyperkeratosis (primary encounter diagnosis) (M20.12) Acquired hallux valgus of left foot (M12.9) Arthropathy - naproxen sodium (ALEVE) 220 mg tablet Take 220 mg by mouth twice daily with meals. (Patient not taking: Reported on 09/16/2021 ) - Cholecalciferol, Vitamin D3, (VITAMIN D) 1,000 unit cap Take 1,000 Units by mouth once daily. No current facility-administered medications on file prior to visit. Social History Social History Tobacco Use - Smoking status: Never Smoker - Smokeless tobacco: Never Used Vaping Use - Vaping Use: Never used Substance Use Topics - Alcohol use: No - Drug use: No EXAM: B (more content not included)...[facility]04-04-2022 History of Present illness Narrative* Gavino Melendez MD - 11/28/2021 3:40 PM EDT Chief Complaint Patient presents with: F/U 3 Month HPI Letty Leon is a 81 year old female who presents here today for a 3 month follow up. Pt here today for a 3 month follow up. Pt here today with her son, Nima who lives with her. Anxiety/Depression - On current regimen of Celexa 40 mg once daily. Pt son, Nima states that he's not really noticed any difference with the medication compared to Paxil. Pt still depressed, crying spells intermittently through out the day with episodes of anxiety. This was changed at the [place], they said she did better with this. Lipids - Stable on current regimen of Atorvastatin 20 mg once daily. Monitoring weight. Stable eating meals that are cooked. Thyroid - Stable on current regimen of Levothyroxine 100 mcg once daily. Denies any missed dosages. Pt was having pacemaker placed by Dr. Zimmerman in September 25, 2021. States that everything has been doing good. Had two checks over there. Past medical history, appointments, medications, allergies reviewed. 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 VITAMIN D DEFICIENCY NOS 10/22/2008 Previous Surgical History PAST SURGICAL HISTORY Procedure Laterality Date APPENDECTOMY ARTHRP KNE CONDYLE&PLATU MEDIAL&LAT COMPARTMENTS Right 08/16/2016 Knee replacement, total BIOPSY CERVIX SINGLE/MULT/EXCISION OF LESION SPX 87 BREAST BIOPSY MAMOTOME LEFT 07/27/05 right breast BREAST BIOPSY MAMOTOME LEFT 07/27/05 right breast BREAST FINE NEEDLE ASPIRATION 07/17/06 U/S FNA UOQ left breast lumpectomy site BX/EXC LYMPH NODE OPEN DEEP AXILLARY NODE 08/15/2005 RIGHT CARDIAC CATHETERIZATION HX 1998 CHOLECYSTECTOMY Cholecystectomy COLONOSCOPY - DIAGNOSTIC 06/27/87 COLONOSCOPY FLX DX W/COLLJ SPEC WHEN PFRMD 04/10/2006 Colonoscopy-repeat in CORRECT BUNION,SIMPLE DILATION & CURETTAGE DX&/THER NONOBSTETRIC Dilation & curettage FNA WITH IMAGING 03/04/12 U/S FNA bilateral thyroid nodules FNA WITH IMAGING 03/16/12 U/S FNA left thyroid nodule HYSTERECTOMY HX 2007 TV[facility], USVVS, TOT INJ RADIOACTIVE TRACER FOR ID OF SENTINEL NODE 08/15/2005 RIGHT LAMINECTOMY,>2 SGMT,LUMBAR 10/26/2011 L2-5 decompression & fusion LAPS ABD PRTM&OMENTUM DX W/WO SPEC BR/WA SPX Laparoscopy excision of ovarian cyst LEFT HEART CATH,PERCUTANEOUS 04/27 LIG/TRNSXJ FLP TUBE ABDL/VAG APPR UNI/BI Tubal ligation MAMMOGRAM NEEDLE LOC LEFT 08/15/2005 RIGHT MASTECTOMY PARTIAL 08/15/2005 RIGHT PARATHYROIDECTOMY/EXPLORATION PARATHYROIDS 04/16/12 PREOP PLACEMENT NEEDLE LOC 08/15/2005 RIGHT SIGMOIDOSCOPY FLX DX W/COLLJ SPEC BR/WA IF PFRMD 01/2000 Sigmoidoscopy, flexible THYROIDECTOMY TOTAL/COMPLETE 04/16/12 total Family History FAMILY HISTORY Problem Relation Age of Onset Breast Cancer Mother 37 Heart Father Breast Cancer Maternal Grandmother Diabetes Brother Colon Cancer Paternal Aunt Patient Allergies ALLERGIES Allergen Reactions Amoxicillin Hives Duricef [Cefadroxil] Hives Floxin [Ofloxacin] Hives Grass Pollen [place] Needle Oil Current Medications Current Outpatient Medications on File Prior to Visit Medication Sig citalopram (CELEXA) 40 mg tablet Take 1 tablet by mouth once daily. levothyroxine (LEVOXYL) 100 mcg tablet Take 1 tablet by mouth once daily. Take on empty stomach. For Thyroid atorvastatin (LIPITOR) 20 mg tablet Take 1 tablet by mouth once daily. COMPOUNDED PRESCRIPTION Powerstep orthotics (L85.9) Hyperkeratosis (primary encounter diagnosis) (M20.12) Acquired hallux valgus of left foot (M12.9) Arthropathy naproxen sodium (ALEVE) 220 mg tablet Take 220 mg by mouth twice daily with meals. (Patient not taking: Reported on 09/16/2021 ) Cholecalciferol, Vitamin D3, (VITAMIN D) 1,000 unit cap Take 1,000 Units by mouth once daily. No current facility-administered medications on file prior to visit. Social History Social History Tobacco Use Smoking status: Never Smoker Smokeless tobacco: Never Used Vaping Use Vaping Use: Never used Substance Use Topics Alcohol use: No Drug use: No EXAM: BP 114/72 (BP Site: Right Arm, BP Position: Sitting, BP Cuff Size: Regular Adult) Pulse 60 Resp20 Wt 80.6 kg (177 lb 12.8 oz) BMI 26.26 kg/m General Appearance: Well appearing, alert, in no acute distress, well-hydrated, well nourished.. Lungs: Lungs clear to auscultation. No wheezing, rhonchi, rales.. Heart: RRR without murmur, gallop, or rubs. No ectopy. Health Maintenance List COVID-19 VACCINE(1) Never done DTAP,TDAP,TD(1 - Tdap) due on 05/28/2010 SHINGRIX VACCINE(2 of 3) due on 06/09/2011 ADVANCE DIRECTIVE DISCUSSION Never done DIABETES SCREEN due on 05/23/2024 BONE DENSITY Completed INFLUENZA Completed PNEUMOVAX AGE 65 AND OVER WITH 5YR LOOKBACK Completed MENINGOCOCCAL CONJUGATE Aged Out Data reviewed none ASSESSMENT/PLAN: 1. Essential hypertension - ICD9: 401.9, ICD10: I10 (primary diagnosis) - good control - Continue current medication(s) - Recommended regular aerobic exercise. - Recommend home blood pressure monitoring, to bring results in on next visit - Goal of BP <140/90 2. Anxiety and depression - ICD9: 300.00, 311, ICD10: F41.9, F32.A Cut back to 20 mg celexa Add buspar 10 mg bid - CITALOPRAM 20 MG TABLET 3. Hypothyroidism, iatrogenic - ICD9: 244.3, ICD10: E03.2 - Instructed patient on importance of taking on an empty stomach either first thing in the morning or at bedtime. - check TSH in 3 months - continue current dose of Synthroid - LEVOTHYROXINE 100 MCG TABLET - TSH BLD 4. Hyperlipidemia, unspecified hyperlipidemia type - ICD9: 272.4, ICD10: E78.5 - to be determined upon return of lab results - Continue current medication. - COMP METABOLIC PANEL - LIPID PANEL BASIC 5. Dementia without behavioral disturbance, unspecified dementia type (HCC) - ICD9: 294.20, ICD10: F03.90 Monitor Follow up in 2 months Medical Decision Making: Problems: Moderate: 1+ chronic illnesses with change and 2+ stable chronic illnesses Data: Unique test(s) ordered: 3+ Risk: Moderate: Drug management Medical Decision Making Level: 4 - Moderate Gavino Melendez [facility]* Diagnosis Onset Date Resolution Status Presence of permanent cardiac pacemaker August, acute Sick sinus syndrome due to SA node dysfunction acute Sinus pause acute Presence of permanent cardiac pacemaker August, acute Sick sinus syndrome due to SA node dysfunction acute Sinus pause acute Syncope acute [facility] Work Phone: 1(812) 791-378601-01-2022 Evaluation note* Diagnosis Onset Date Resolution Status Presence of permanent cardiac pacemaker August, acute Sick sinus syndrome due to SA node dysfunction acute Sinus pause acute Syncope acute Abnormal chest x-ray acute Debility acute Dementia acute Frequent falls acute Hypotension acute UTI (urinary tract infection) acute [facility] Work Phone: 1(578) 806-331801-01-2022 Evaluation note* Diagnosis Onset Date Resolution Status Presence of permanent cardiac pacemaker August, acute Sick sinus syndrome due to SA node dysfunction acute Sinus pause acute Syncope acute Abnormal chest x-ray acute Debility acute Dementia acute Frequent falls acute UTI (urinary tract infection) acute Hypotension resolved [facility] Work Phone: 1(115) 898-671501-01-2022 Evaluation note* Diagnosis Onset Date Resolution Status Presence of permanent cardiac pacemaker August, acute Sick sinus syndrome due to SA node dysfunction acute Sinus pause acute Presence of permanent cardiac pacemaker August, acute Hyperlipidemia chronic [facility] Work Phone: 1(959) 703-194512-21-2016 History of Past illness Narrative* Problem Noted Date Resolved Date Aftercare following right knee joint replacement surgery 08/16/2016 09/01/2019 Malignant neoplasm of female breast 07/10/2016 09/01/2019 Chronic pain of both knees 06/27/201609/01 Arthritis of knee 05/01/2014 09/01/2019 Lymphocytic thyroiditis 04/30/2012 09/01/19 20 Multinodular goiter 02/27/2012 05/22/2012 Hypokalemia 10/28/2011 09/01/2019 Blood glucose elevated 10/27/2011 0 Low back pain 01/18/2010 09/01/2019 Overview: Lumbar spondylosis Asymptomatic varicose veins 12/09/200801/2020 Uterovaginal prolapse, incomplete 05/15/2008 06/08/2008 Syncope and collapse 02/01/2007 05/30/2016 SEROMA, POST OP 09/19/2005 02/22/2009 BREAST CANCER UPPER OUTER (Right) 08/03/2005 02/22/2009 UNSP ABNORMAL MAMMOGRAM (Right) 07/25/2005 07/23/2006 Diffuse cystic mastopathy 2005 Spasm of muscle 07/23/2006 Genital prolapse 07/23/2006 Morbid obesity 09/01/2019 Esophageal reflux 09/01/2019 Hypertensive heart and kidney disease, benign 07/23/2006 Hyperlipidemia 11/24/2021 Malignant neoplasm of breast (female), unspecifi ed site 09/01/2019 Overview: 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 S/p lumpectomy and radiation. Dr Fournier. documented as of this encounter (statuses as of 11/28/2021) [facility] of Past illness Narrative* Problem Noted Date Resolved Date Aftercare following right knee joint replacement surgery 08/16/2016 09/01/2019 Malignant neoplasm of female breast 07/10/2016 09/01/2019 Chronic pain of both knees 06/27/201609/01 Arthritis of knee 05/01/2014 09/01/2019 Lymphocytic thyroiditis 04/30/2012 09/01/19 20 Multinodular goiter 02/27/2012 05/22/2012 Hypokalemia 10/28/2011 09/01/2019 Blood glucose elevated 10/27/2011 0 Low back pain 01/18/2010 09/01/2019 Overview: Lumbar spondylosis Asymptomatic varicose veins 12/09/200801/2020 Uterovaginal prolapse, incomplete 05/15/2008 06/08/2008 Syncope and collapse 02/01/2007 05/30/2016 SEROMA, POST OP 09/19/2005 02/22/2009 BREAST CANCER UPPER OUTER (Right) 08/03/2005 02/22/2009 UNSP ABNORMAL MAMMOGRAM (Right) 07/25/2005 07/23/2006 Diffuse cystic mastopathy 2005 Spasm of muscle 07/23/2006 Genital prolapse 07/23/2006 Morbid obesity 09/01/2019 Esophageal reflux 09/01/2019 Hypertensive heart and kidney disease, benign 07/23/2006 Hyperlipidemia 11/24/2021 Malignant neoplasm of breast (female), unspecifi ed site 09/01/2019 Overview: 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 S/p lumpectomy and radiation. Dr Fournier. documented as of this encounter (statuses as of 12/29/2021) [facility] Narrative* Problem Noted Date Resolved Date Aftercare following right knee joint replacement surgery 08/16/2016 09/01/2019 Malignant neoplasm of female breast 07/10/2016 09/01/2019 Chronic pain of both knees 06/27/201609/01 Arthritis of knee 05/01/2014 09/01/2019 Lymphocytic thyroiditis 04/30/2012 09/01/19 20 Multinodular goiter 02/27/2012 05/22/2012 Hypokalemia 10/28/2011 09/01/2019 Blood glucose elevated 10/27/2011 0 Low back pain 01/18/2010 09/01/2019 Overview: Lumbar spondylosis Asymptomatic varicose veins 12/09/200801/2020 Uterovaginal prolapse, incomplete 05/15/2008 06/08/2008 Syncope and collapse 02/01/2007 05/30/2016 SEROMA, POST OP 09/19/2005 02/22/2009 BREAST CANCER UPPER OUTER (Right) 08/03/2005 02/22/2009 UNSP ABNORMAL MAMMOGRAM (Right) 07/25/2005 07/23/2006 Diffuse cystic mastopathy 2005 Spasm of muscle 07/23/2006 Genital prolapse 07/23/2006 Morbid obesity 09/01/2019 Esophageal reflux 09/01/2019 Hypertensive heart and kidney disease, benign 07/23/2006 Hyperlipidemia 11/24/2021 Malignant neoplasm of breast (female), unspecifi ed site 09/01/2019 Overview: 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 S/p lumpectomy and radiation. Dr Fournier. 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 09/01/19 20 Multinodular goiter 02/27/2012 05/22/2012 Hypokalemia 10/28/2011 09/01/2019 Blood glucose elevated 10/27/2011 0 Low back pain 01/18/2010 09/01/2019 Overview: Lumbar spondylosis Asymptomatic varicose veins 12/09/200801/2020 Uterovaginal prolapse, incomplete 05/15/2008 06/08/2008 Syncope and collapse 02/01/2007 05/30/2016 SEROMA, POST OP 09/19/2005 02/22/2009 BREAST CANCER UPPER OUTER (Right) 08/03/2005 02/22/2009 UNSP ABNORMAL MAMMOGRAM (Right) 07/25/2005 07/23/2006 Diffuse cystic mastopathy 2005 Spasm of muscle 07/23/2006 Genital prolapse 07/23/2006 Morbid obesity 09/01/2019 Esophageal reflux 09/01/2019 Hypertensive heart and kidney disease, benign 07/23/2006 Hyperlipidemia 11/24/2021 Malignant neoplasm of breast (female), unspecifi ed site 09/01/2019 Overview: 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 S/p lumpectomy and radiation. Dr Fournier. documented as of this encounter (statuses as of 05/30/2022) [facility] illness Narrative* Problem Noted Date Resolved Date Aftercare following right knee joint replacement surgery 08/16/2016 09/01/2019 Malignant neoplasm of female breast 07/10/2016 09/01/2019 Chronic pain of both knees 06/27/201609/01 Arthritis of knee 05/01/2014 09/01/2019 Lymphocytic thyroiditis 04/30/2012 09/01/19 20 Multinodular goiter 02/27/2012 05/22/2012 Hypokalemia 10/28/2011 09/01/2019 Blood glucose elevated 10/27/2011 0 Low back pain 01/18/2010 09/01/2019 Overview: Lumbar spondylosis Asymptomatic varicose veins 12/09/200801/2020 Uterovaginal prolapse, incomplete 05/15/2008 06/08/2008 Syncope and collapse 02/01/2007 05/30/2016 SEROMA, POST OP 09/19/2005 02/22/2009 BREAST CANCER UPPER OUTER (Right) 08/03/2005 02/22/2009 UNSP ABNORMAL MAMMOGRAM (Right) 07/25/2005 07/23/2006 Diffuse cystic mastopathy 2005 Spasm of muscle 07/23/2006 Genital prolapse 07/23/2006 Morbid obesity 09/01/2019 Esophageal reflux 09/01/2019 Hypertensive heart and kidney disease, benign 07/23/2006 Hyperlipidemia 11/24/2021 Malignant neoplasm of breast (female), unspecifi ed site 09/01/2019 Overview: 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 S/p lumpectomy and radiation. Dr Fournier. 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 09/01/19 20 Multinodular goiter 02/27/2012 05/22/2012 Hypokalemia 10/28/2011 09/01/2019 Blood glucose elevated 10/27/2011 0 Low back pain 01/18/2010 09/01/2019 Overview: Lumbar spondylosis Asymptomatic varicose veins 12/09/200801/2020 Uterovaginal prolapse, incomplete 05/15/2008 06/08/2008 Syncope and collapse 02/01/2007 05/30/2016 SEROMA, POST OP 09/19/2005 02/22/2009 BREAST CANCER UPPER OUTER (Right) 08/03/2005 02/22/2009 UNSP ABNORMAL MAMMOGRAM (Right) 07/25/2005 07/23/2006 Diffuse cystic mastopathy 2005 Spasm of muscle 07/23/2006 Genital prolapse 07/23/2006 Morbid obesity 09/01/2019 Esophageal reflux 09/01/2019 Hypertensive heart and kidney disease, benign 07/23/2006 Hyperlipidemia 11/24/2021 Malignant neoplasm of breast (female), unspecifi ed site 09/01/2019 Overview: 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 S/p lumpectomy and radiation. Dr Fournier. documented as of this encounter (statuses as of 06/30/2022) [facility] Narrative* Problem Noted Date Resolved Date Aftercare following right knee joint replacement surgery 08/16/2016 09/01/2019 Malignant neoplasm of female breast 07/10/2016 09/01/2019 Chronic pain of both knees 06/27/201609/01 Arthritis of knee 05/01/2014 09/01/2019 Lymphocytic thyroiditis 04/30/2012 09/01/19 20 Multinodular goiter 02/27/2012 05/22/2012 Hypokalemia 10/28/2011 09/01/2019 Blood glucose elevated 10/27/2011 0 Low back pain 01/18/2010 09/01/2019 Overview: Lumbar spondylosis Asymptomatic varicose veins 12/09/200801/2020 Uterovaginal prolapse, incomplete 05/15/2008 06/08/2008 Syncope and collapse 02/01/2007 05/30/2016 SEROMA, POST OP 09/19/2005 02/22/2009 BREAST CANCER UPPER OUTER (Right) 08/03/2005 02/22/2009 UNSP ABNORMAL MAMMOGRAM (Right) 07/25/2005 07/23/2006 Diffuse cystic mastopathy 2005 Spasm of muscle 07/23/2006 Genital prolapse 07/23/2006 Morbid obesity 09/01/2019 Esophageal reflux 09/01/2019 Hypertensive heart and kidney disease, benign 07/23/2006 Hyperlipidemia 11/24/2021 Malignant neoplasm of breast (female), unspecifi ed site 09/01/2019 Overview: 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 S/p lumpectomy and radiation. Dr Fournier. documented as of this encounter (statuses as of 08/14/2022) [facility] Narrative* Problem Noted Date Resolved Date Aftercare following right knee joint replacement surgery 08/16/2016 09/01/2019 Malignant neoplasm of female breast 07/10/2016 09/01/2019 Chronic pain of both knees 06/27/201609/01 Arthritis of knee 05/01/2014 09/01/2019 Lymphocytic thyroiditis 04/30/2012 09/01/19 20 Multinodular goiter 02/27/2012 05/22/2012 Hypokalemia 10/28/2011 09/01/2019 Blood glucose elevated 10/27/2011 0 Low back pain 01/18/2010 09/01/2019 Overview: Lumbar spondylosis Asymptomatic varicose veins 12/09/200801/2020 Uterovaginal prolapse, incomplete 05/15/2008 06/08/2008 Syncope and collapse 02/01/2007 05/30/2016 SEROMA, POST OP 09/19/2005 02/22/2009 BREAST CANCER UPPER OUTER (Right) 08/03/2005 02/22/2009 UNSP ABNORMAL MAMMOGRAM (Right) 07/25/2005 07/23/2006 Diffuse cystic mastopathy 2005 Spasm of muscle 07/23/2006 Genital prolapse 07/23/2006 Morbid obesity 09/01/2019 Esophageal reflux 09/01/2019 Hypertensive heart and kidney disease, benign 07/23/2006 Hyperlipidemia 11/24/2021 Malignant neoplasm of breast (female), unspecifi ed site 09/01/2019 Overview: 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 S/p lumpectomy and radiation. Dr Fournier. documented as of this encounter (statuses as of 09/07/2022) [facility] Narrative* Problem Noted Date Resolved Date Aftercare following right knee joint replacement surgery 08/16/2016 09/01/2019 Malignant neoplasm of female breast 07/10/2016 09/01/2019 Chronic pain of both knees 06/27/201609/01 Arthritis of knee 05/01/2014 09/01/2019 Lymphocytic thyroiditis 04/30/2012 09/01/19 20 Multinodular goiter 02/27/2012 05/22/2012 Hypokalemia 10/28/2011 09/01/2019 Blood glucose elevated 10/27/2011 0 Low back pain 01/18/2010 09/01/2019 Overview: Lumbar spondylosis Asymptomatic varicose veins 12/09/200801/2020 Uterovaginal prolapse, incomplete 05/15/2008 06/08/2008 Syncope and collapse 02/01/2007 05/30/2016 SEROMA, POST OP 09/19/2005 02/22/2009 BREAST CANCER UPPER OUTER (Right) 08/03/2005 02/22/2009 UNSP ABNORMAL MAMMOGRAM (Right) 07/25/2005 07/23/2006 Diffuse cystic mastopathy 2005 Spasm of muscle 07/23/2006 Genital prolapse 07/23/2006 Morbid obesity 09/01/2019 Esophageal reflux 09/01/2019 Hypertensive heart and kidney disease, benign 07/23/2006 Hyperlipidemia 11/24/2021 Malignant neoplasm of breast (female), unspecifi ed site 09/01/2019 Overview: 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 S/p lumpectomy and radiation. Dr Fournier. documented as of this encounter (statuses as of 10/02/2022) [facility] Narrative* Problem Noted Date Resolved Date Aftercare following right knee joint replacement surgery 08/16/2016 09/01/2019 Malignant neoplasm of female breast 07/10/2016 09/01/2019 Chronic pain of both knees 06/27/201609/01 Arthritis of knee 05/01/2014 09/01/2019 Lymphocytic thyroiditis 04/30/2012 09/01/19 20 Multinodular goiter 02/27/2012 05/22/2012 Hypokalemia 10/28/2011 09/01/2019 Blood glucose elevated 10/27/2011 0 Low back pain 01/18/2010 09/01/2019 Overview: Lumbar spondylosis Asymptomatic varicose veins 12/09/200801/2020 Uterovaginal prolapse, incomplete 05/15/2008 06/08/2008 Syncope and collapse 02/01/2007 05/30/2016 SEROMA, POST OP 09/19/2005 02/22/2009 BREAST CANCER UPPER OUTER (Right) 08/03/2005 02/22/2009 UNSP ABNORMAL MAMMOGRAM (Right) 07/25/2005 07/23/2006 Diffuse cystic mastopathy 2005 Spasm of muscle 07/23/2006 Genital prolapse 07/23/2006 Morbid obesity 09/01/2019 Esophageal reflux 09/01/2019 Hypertensive heart and kidney disease, benign 07/23/2006 Hyperlipidemia 11/24/2021 Malignant neoplasm of breast (female), unspecifi ed site 09/01/2019 Overview: 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 S/p lumpectomy and radiation. Dr Fournier. documented as of this encounter (statuses as of 10/05/2022) [facility] Narrative* Problem Noted Date Resolved Date Aftercare following right knee joint replacement surgery 08/16/2016 09/01/2019 Malignant neoplasm of female breast 07/10/2016 09/01/2019 Chronic pain of both knees 06/27/201609/01 Arthritis of knee 05/01/2014 09/01/2019 Lymphocytic thyroiditis 04/30/2012 09/01/19 20 Multinodular goiter 02/27/2012 05/22/2012 Hypokalemia 10/28/2011 09/01/2019 Blood glucose elevated 10/27/2011 0 Low back pain 01/18/2010 09/01/2019 Overview: Lumbar spondylosis Asymptomatic varicose veins 12/09/200801/2020 Uterovaginal prolapse, incomplete 05/15/2008 06/08/2008 Syncope and collapse 02/01/2007 05/30/2016 SEROMA, POST OP 09/19/2005 02/22/2009 BREAST CANCER UPPER OUTER (Right) 08/03/2005 02/22/2009 UNSP ABNORMAL MAMMOGRAM (Right) 07/25/2005 07/23/2006 Diffuse cystic mastopathy 2005 Spasm of muscle 07/23/2006 Genital prolapse 07/23/2006 Morbid obesity 09/01/2019 Esophageal reflux 09/01/2019 Hypertensive heart and kidney disease, benign 07/23/2006 Hyperlipidemia 11/24/2021 Malignant neoplasm of breast (female), unspecifi ed site 09/01/2019 Overview: 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 S/p lumpectomy and radiation. Dr Fournier. documented as of this encounter (statuses as of 10/10/2022) [facility] Narrative* Problem Noted Date Resolved Date Aftercare following right knee joint replacement surgery 08/16/2016 09/01/2019 Malignant neoplasm of female breast 07/10/2016 09/01/2019 Chronic pain of both knees 06/27/201609/01 Arthritis of knee 05/01/2014 09/01/2019 Lymphocytic thyroiditis 04/30/2012 09/01/19 20 Multinodular goiter 02/27/2012 05/22/2012 Hypokalemia 10/28/2011 09/01/2019 Blood glucose elevated 10/27/2011 0 Low back pain 01/18/2010 09/01/2019 Overview: Lumbar spondylosis Asymptomatic varicose veins 12/09/200801/2020 Uterovaginal prolapse, incomplete 05/15/2008 06/08/2008 Syncope and collapse 02/01/2007 05/30/2016 SEROMA, POST OP 09/19/2005 02/22/2009 BREAST CANCER UPPER OUTER (Right) 08/03/2005 02/22/2009 UNSP ABNORMAL MAMMOGRAM (Right) 07/25/2005 07/23/2006 Diffuse cystic mastopathy 2005 Spasm of muscle 07/23/2006 Genital prolapse 07/23/2006 Morbid obesity 09/01/2019 Esophageal reflux 09/01/2019 Hypertensive heart and kidney disease, benign 07/23/2006 Hyperlipidemia 11/24/2021 Malignant neoplasm of breast (female), unspecifi ed site 09/01/2019 Overview: 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 S/p lumpectomy and radiation. Dr Fournier. documented as of this encounter (statuses as of 11/01/2022) [facility] Essential hypertension- Primary Unspecified essential hypertension Anxiety and depression Dysthymic disorder Hypothyroidism, iatrogenic Other iatrogenic hypothyroidism Hyperlipidemia, unspecified hyperlipidemia type Dementia without behavioral disturbance, unspecified dementia type (HCC) [facility] Diagnosis Essential hypertension- Primary Unspecified essential hypertension Dementia without behavioral disturbance, unspecified dementia type (HCC) Hyperlipidemia, unspecified hyperlipidemia type Hypothyroidism, iatrogenic Other iatrogenic hypothyroidism Anxiety and depression Dysthymic disorder documented in this encounter [facility] Diagnosis Neuritis of lower extremity, unspecified laterality- Primary Generalized weakness Other malaise and fatigue Weakness of both lower extremities Status post total knee replacement, unspecified laterality documented in this encounter [facility] Diagnosis Essential hypertension- Primary Unspecified essential hypertension Hyperlipidemia, unspecified hyperlipidemia type Stage 3a chronic kidney disease (HCC) Hypothyroidism, iatrogenic Other iatrogenic hypothyroidism Arthritis of knee Unspecified arthropathy, lower leg Anxiety and depression Dysthymic disorder Flu vaccine need Need for prophylactic vaccination and inoculation against influenza documented in this encounter [facility] Diagnosis Recurrent falls- Primary Personal history of fall Generalized weakness Other malaise and fatigue Hypotension, unspecified hypotension type Confusion Unspecified psychosis documented in this encounter [facility] note* Diagnosis Essential hypertension- Primary Unspecified essential hypertension Dementia without behavioral disturbance (HCC) Dementia, unspecified, without behavioral disturbance Hyperlipidemia, unspecified hyperlipidemia type Anxiety and depression Dysthymic disorder Hypothyroidism, iatrogenic Other iatrogenic hypothyroidism documented in this encounter [facility] noteNo assessment information [facility]WKet[facility] Work Phone: Hospital Discharge instructions Additional Instructions Testing in the ER ruled out an acute blood clot in the lung (pulmonary embolus) and myocardial infarction/heart attack.[facility] Work Phone: Reason for referral (narrative)No reason for referral information availableWKet[facility] Work Phone: Advance Directives Documents on File Type Date Recorded Patient Tip Puncher Expl anation Advance Directive(s) 08/22/2016 3:19 PM Advance Directive(s) 12/06/2015 11:45 AM Advance Directive(s) 09/01/2009 9:43 PM Advance Directive Response Recorded Date/ Time Advance Directives Yes September 26, 2021 12:01pm Living Will No May 27 1:50pm Power of Roller Presser Operator No May 27 1:50pm Documents on File Type Date Recorded Patient Tip Puncher Expl anation Advance Directive(s) 08/22/2016 3:19 PM Advance Directive(s) 09/01/2009 9:43 PM Advance Directive Response Recorded Date/ Time Name of Medical Power of Roller Presser Operator Nima Leon August 14, 2022 7:40pm Advance Directives Yes September 26, 2021 11:01am Living Will No August 14, 022 7:40pm Power of Roller Presser Operator Yes August 14, 2022 7:40pm Advance Directive Response Recorded Date/ Time Name of Medical Power of Roller Presser Operator family March 01, 2023 7:53pm Advance Directives Yes September 26, 2021 12:01pm Living Will No March 01, 2023 7 :53pm Power of Roller Presser Operator Yes March 01, 2023 7:53pm Advance Directive Response Recorded Date/ Time Name of Medical Power of Roller Presser Operator family March 01, 2023 7:53pm Advance Directives Yes September 26, 2021 12:01pm Living Will No May 29 8:03pm Power of Roller Presser Operator No May 29 2 023 8:03pm Advance Directive Response Recorded Date/ Time Advance Directives Yes September 26, 2021 11:01am Living Will No May 29 7:03pm Power of Roller Presser Operator No May 29, 2 023 7:03pm Advance Directive Response Recorded Date/ Time Advance Directives Yes September 26, 2021 12:01pm Living Will No May 29 8:03pm Power of Roller Presser Operator No May 29 2 023 8:03pm Advance Directive Response Recorded Date/ Time Living Will No May 29 8:03pm Do you have a Healthcare Power of Roller Presser Operator? No May 29, 2023 8:03pm Advance Directives Yes September 26, 2021 12:01pm Chief Complaint and Reason for Visit Chief Complaint 3 mos remote PPM f/u 3 mos remote PPM f/u lower extremity Reason for Visit Presence of permanen t cardiac pacemaker Sick sinus syndrome due to SA node dysfunction Sinus pause Presence of permanent cardiac pacemaker Sick sinus syndrome due to SA node dysfunction Sinus pause Syncope Chief Complaint 3 mos remote PPM f/u lower extremity FALLS. DEBILITY. FALLS. DEBILITY. Reason for Visit Presence of permanen t cardiac pacemaker Sick sinus syndrome due to SA node dysfunction Sinus pause Syncope Abnormal chest x-ray Debility Dementia Frequent falls Hypotension UTI (urinary tract infection) Chief Complaint 3 mos remote PPM f/u lower extremity FALLS. DEBILITY. FALLS. DEBILITY. FALLS. DEBILITY. FALLS. DEBILITY. Reason for Visit Presence of permanen t cardiac pacemaker Sick sinus syndrome due to SA node dysfunction Sinus pause Syncope Abnormal chest x-ray Debility Dementia Frequent falls Hypotension UTI (urinary tract infection) Chief Complaint 3 mos remote PPM f/u lower extremity FALLS. DEBILITY. FALLS. DEBILITY. FALLS. DEBILITY. FALLS. DEBILITY. [facility]WORK LAB WORK LABWORK Reason for Visit Presence of permanen t cardiac pacemaker Sick sinus syndrome due to SA node dysfunction Sinus pause Syncope Abnormal chest x-ray Debility Dementia Frequent falls UTI (urinary tract infection) Hypotension Chief Complaint LABWORK general illness Chief Complaint general illness FALL Chief Complaint FALL [facility] LAB WORK Chief Complaint FALL [facility] LAB WORK PVD Chief Complaint FALL [facility] WORK PVD PARESTHESIA PARESTHESIA Chief Complaint PVD PARESTHESIA PARESTHESIA Pacer Check Remote 1 YR F/U / BLACK 10:00 Pacer Check Remote LABWORK Reason for Visit Presence of permanen t cardiac pacemaker Sick sinus syndrome due to SA node dysfunction Sinus pause Presence of permanent cardiac pacemaker Hyperlipidemia Chief Complaint Admit Date Pacer Check Remote July 31, 2024 2 :00am Pacer Check Remote October 30, 2024 2:00 am Pacer Check Remote October 30, 2024 9:00 am ANNUAL IN CLINIC/MMM @ :October 30, 2024 10:02am 1 Y FU/BLACK @ October 30, 2024 10:0 3am Reason for Visit Admit Date PAF (paroxysmal atrial fibrillation) [facility] 2024 10:02am Presence of permanent cardiac pacemaker October 30, 2024 10:02am Sick sinus syndrome due to SA node dysfu nction October 30, 2024 10:02am PAF (paroxysmal atrial fibrillation) [facility] 2024 10:03am Presence of permanent cardiac pacemaker October 30, 2024 10:03am Hyperlipidemia October 30, 2024 10:0 3am Chief Complaint Admit Date Pacer Check Remote October 30, 2024 2:00 am Pacer Check Remote October 30, 2024 9:00 am ANNUAL IN CLINIC/MMM @ 10:30 October 30, 2024 10:02am 1 Y FU/BLACK @ October 30, 2024 10:0 3am [facility] LAB WORK December 09, 2024 5 :00am Chief Complaint Admit Date Pacer Check Remote October 30, 2024 2:00 am Pacer Check Remote October 30, 2024 9:00 am ANNUAL IN CLINIC/MMM @ 10:30 October 30, 2024 10:02am 1 Y FU/BLACK @ 10 October 30, 2024 10:0 3am [facility] WORK December 09, 2024 5 :00am [facility] WORK January 06, 2025 5:0 0am Pacer Check Remote January 29, 2025 2:00a m Family History Relationship Condition Age at Onset Recorded Date/T edmar father Cardiac disease Unknown Kidney disorder Unknown mother Cardiac disease Unknown Summary Purpose Additional Source Comments Source Comments (unrecognize d section and content) In the event this informatio n is protected by the Federal Confidentiality of Alcohol and Drug Abuse Patient Records regulations: The Federal rules restrict any use of the information to criminally investigate or prosecute any alcohol or drug abuse patient.[facility] the event this information is protected by the Federal Confidentiality of Alcohol and Drug Abuse Patient Records regulations: The Federal rules restrict any use of the information to criminally investigate or prosecute any alcohol or drug abuse patient.[facility] the event this information is protected by the Federal Confidentiality of Alcohol and Drug Abuse Patient Records regulations: The Federal rules restrict any use of the information to criminally investigate or prosecute any alcohol or drug abuse patient.[facility] the event this information is protected by the Federal Confidentiality of Alcohol and Drug Abuse Patient Records regulations: The Federal rules restrict any use of the information to criminally investigate or prosecute any alcohol or drug abuse patient.[facility] the event this information is protected by the Federal Confidentiality of Alcohol and Drug Abuse Patient Records regulations: The Federal rules restrict any use of the information to criminally investigate or prosecute any alcohol or drug abuse patient.[facility] the event this information is protected by the Federal Confidentiality of Alcohol and Drug Abuse Patient Records regulations: The Federal rules restrict any use of the information to criminally investigate or prosecute any alcohol or drug abuse patient.[facility] the event this information is protected by the Federal Confidentiality of Alcohol and Drug Abuse Patient Records regulations: The Federal rules restrict any use of the information to criminally investigate or prosecute any alcohol or drug abuse patient.[facility] the event this information is protected by the Federal Confidentiality of Alcohol and Drug Abuse Patient Records regulations: The Federal rules restrict any use of the information to criminally investigate or prosecute any alcohol or drug abuse patient.[facility] the event this information is protected by the Federal Confidentiality of Alcohol and Drug Abuse Patient Records regulations: The Federal rules restrict any use of the information to criminally investigate or prosecute any alcohol or drug abuse patient.[facility] the event this information is protected by the Federal Confidentiality of Alcohol and Drug Abuse Patient Records regulations: The Federal rules restrict any use of the information to criminally investigate or prosecute any alcohol or drug abuse patient.[facility] the event this information is protected by the Federal Confidentiality of Alcohol and Drug Abuse Patient Records regulations: The Federal rules restrict any use of the information to criminally investigate or prosecute any alcohol or drug abuse patient.[facility] the event this information is protected by the Federal Confidentiality of Alcohol and Drug Abuse Patient Records regulations: The Federal rules restrict any use of the information to criminally investigate or prosecute any alcohol or drug abuse patient.[facility] Reason for Visit (unrecogniz ed section and content) Reason Comments F/U 3 Month Specialty Diagnoses / Procedures Referred By Contac t Referred To Contact Family Practice / FAMILY MEDICINE Diagnoses 3 month follow up Procedures 4C Gavino Mccain MD [address] [place] [address] Gavino Melendez MD [address] [place] [address] Referral ID Status Reason Start Date Expiration Date V isits Requested Visits Authorized [id number] Closed Patient Cleared INN/SMCP Payor Auth Obtained 11/28/2021 08/26/2022 1 1 Reason Onset Date Comments Refill Request 12/29/2021 Reason Comments Follow Up Specialty Diagnoses / Procedures Referred By Contac t Referred To Contact Family Practice / FAMILY MEDICINE Diagnoses 2 mo f/u Procedures 4C Gavino Mccain MD [facility] [place] [address] Gavino Melendez MD [address] [place] [address] Referral ID Status Reason Start Date Expiration Date Visits Re quested Visits Authorized [id number] Closed 01/30/2022 08/26/2022 1 1 Reason Comments Orders for physical therapy in home orde rs to [place] [facility] Reason Comments Results Reason Comments Multiple falls X 1 week Reason Comments Hospital F/U Fpc follow up. Reason Comments urine symptoms Reason Comments Fpc Placement Reason Comments Orders Reason Comments Refill Request Care Teams (unrecognized sec tion and content) Bill Peddler Relationship Specialty Start Date End Date Gavino Melendez MD [address] [place] [address] PCP - General Family Practice 04/13/15 Bill Peddler Relationship Specialty Start Date End Date Gavino Melendez MD [address] [place] [address] PCP - General Family Practice 04/13/15 Bill Peddler Relationship Specialty Start Date End Date Gavino Melendez MD [address] [place] [address] PCP - General Family Practice 04/13/15 Bill Peddler Relationship Specialty Start Date End Date Gavino Melendez MD [address] [place] [address] PCP - General Family Medicine 04/13/15 Bill Peddler Relationship Specialty Start Date End Date Gavino Melendez MD [address] [place] [address] PCP - General Family Medicine 04/13/15 Bill Peddler Relationship Specialty Start Date End Date Gavino Melendez MD [address] [place] [address] PCP - General Family Medicine 04/13/15 Bill Peddler Relationship Specialty Start Date End Date Gavino Melendez MD [address] [place] [address] PCP - General Family Medicine 04/13/15 Team Status: Active Member Role Status Dates Dr. Gavino Melendez MD Family Provider Active Dr. Gavino Melendez MD Primary Care Provider Active Team Status: Inactive Member Role Status Dates Dr. Gavino Melendez MD Primary Care Provider Active Kavya Ramos Active Dr. Nima Zimmerman MD Attending Provider, Referring Provider Active Team Status: Active Member Role Status Dates Dr. Gavino Melendez MD Primary Care Provider Active Ron Rojas MD Emergency Provider Active Dr. Oz Mar DO Admit Provider, At tending Provider, Other Provider Active Team Status: Active Member Role Status Dates Dr. Gavino Melendez MD Primary Care Provider Active Ron Rojas MD Emergency Provider Active Dr. Oz Mar DO Admit Provider, Other Provider A ctive Dr. Tanya Greenwood DO Attending Provider, Other Provide r Active Team Status: Active Member Role Status Dates Dr. Gavino Melendez MD Primary Care Provider Active Ron Rojas MD Emergency Provider Active Dr. Oz Mar DO Admit Provider, Other Provider A ctive Dr. William Mclean MD Attending Provider, Other Provider Active Dr. Tanya Greenwood DO Other Provider Active Team Status: Inactive Member Role Status Dates Dr. Gavino Melendez MD Primary Care Provider Active Dr. Luis Garcia DO Attending Provider, Emergency Provider Active Team Status: Inactive Member Role Status Dates Dr. Gavino Melendez MD Primary Care Provider Active Ron Rojas MD Emergency Provider Active Dr. Oz Mar DO Admit Provider, Other Provider A ctive Dr. William Mclean MD Attending Provider Active Dr. Tanya Greenwood DO Other Provider Active Team Status: Active Member Role Status Dates Dr. Gavino Melendez MD Primary Care Provider Active Nima Grover Attending Provider Active Team Status: Active Member Role Status Dates Dr. Gavino Melendez MD Primary Care Provider Active Nima Grover Attending Provider, Referring Provider Ac tive Team Status: Inactive Member Role Status Dates Dr. Gavino Melendez MD Primary Care Provider Active Nima Grover Attending Provider Active Bill Peddler Relationship Specialty Start Date End Date Gavino Melendez MD [address] [place] [address] PCP - General Family Medicine 04/13/15 Bill Peddler Relationship Specialty Start Date End Date Gavino Melendez MD [address] [facility] [place] [address] PCP - General Family Medicine 04/13/15 Team Status: Active Member Role Status Dates Dr. Gavino Melendez MD Family Provider Active Dr. Ifrah Baker MD Primary Care Provider Active Team Status: Inactive Member Role Status Dates Dr. Ifrah Baker MD Primary Care Provider Active Dr. Ifrah EARLY MD Attending Provider Active Team Status: Inactive Member Role Status Dates Dr. Ifrah Baker MD Primary Care Provider Active Dr. Dominguez Alebrt MD Emergency Provider Active Team Status: Inactive Member Role Status Dates Dr. Ifrah Baker MD Primary Care Provider Active Dr. Dominguez Albert MD Attending Provider, Emergency Provider Active Team Status: Inactive Member Role Status Dates Dr. Ifrah Baker MD Primary Care Provider Active Dr. Edwin Nath MD Emergency Provider Active Team Status: Inactive Member Role Status Dates Dr. Ifrah Baker MD Primary Care Provider Active Dr. Edwin Nath MD Attending Provider, Emergency Provider Active Team Status: Inactive Member Role Status Dates Dr. Ifrah Baker MD Primary Care Provider Active Dr. Quirino Marks DPM Attending Provider, Referring Provider Active Team Status: Active Member Role Status Dates Dr. Ifrah Baker MD Primary Care Provider Active Dr. Quirino Marks DPM Referring Provider, Other Pro vider Active Dr. Minerva Hamilton MD Attending Provider Active Team Status: Inactive Member Role Status Dates Dr. Ifrah Baker MD Primary Care Provider, Referring Provider Active Krystal Morgan PA, PA Attending Provider Active Team Status: Inactive Member Role Status Dates Dr. Ifrah Baker MD Primary Care Provider Active Dr. Tray Cabrera MD Attending Provider, Referring Pro vider Active Team Status: Inactive Member Role Status Dates Dr. Ifrah Baker MD Primary Care Provider Active Dr. Tray Cabrera MD Attending Provider Active Team Status: Active Member Role Status Dates Dr. Ifrah Baker MD Primary Care Provider Active Team Status: Inactive Member Role Status Dates Dr. Ifrah Baker MD Primary Care Provider Active Start: July 31, 2024 End: July 31, 2024 Dr. Tray Cabrera MD Attending Provider Active S tart: July 31, 2024 End: July 31, 2024 Dr. Tray Cabrera MD Referring Provider Active S tart: July 31, 2024 End: July 31, 2024 Team Status: Inactive Member Role Status Dates Dr. Ifrah Baker MD Primary Care Provider Active Start: October 30, 2024 End: October 30, 2024 Dr. Tray Cabrera MD Attending Provider Active S tart: October 30, 2024 End: October 30, 2024 Dr. Tray Cabrera MD Referring Provider Active S tart: October 30, 2024 End: October 30, 2024 Team Status: Inactive Member Role Status Dates Dr. Ifrah Baker MD Primary Care Provider Active Start: October 30, 2024 End: October 30, 2024 Dr. Tray Cabrera MD Attending Provider Active S tart: October 30, 2024 End: October 30, 2024 Team Status: Inactive Member Role Status Dates Dr. Ifrah Baker MD Primary Care Provider Active Start: October 30, 2024 End: October 30, 2024 Dr. Ifrah Baker MD Referring Provider Active Start: October 30, 2024 End: October 30, 2024 Krystal Morgan PA, PA Attending Provider Active Start: October 30, 2024 End: October 30, 2024 Team Status: Inactive Member Role Status Dates Dr. Ifrah Baker MD Primary Care Provider Active Start: December 09, 2024 End: December 09, 2024 Dr. Ifrah EARLY MD Attending Provider Active Start: December 09, 2024 End: December 09, 2024 Team Status: Active Member Role Status Dates Dr. Ifrah Baker MD Primary Care Provider Active Start: January 06, 2025 Dr. Ifrah EARLY MD Attending Provider Active Start: January 06, 2025 Team Status: Inactive Member Role Status Dates Dr. Ifrah Baker MD Primary Care Provider Active Start: January 29, 2025 End: January 29, 2025 Dr. Tray Cabrera MD Attending Provider Active S tart: January 29, 2025 End: January 29, 2025 Goals (unrecognized section and content) Goals may be documented in a n alternate sectionGoals may be documented in an alternate sectionGoals may be documented in an alternate sectionGoals may be documented in an alternate sectionGoals may be documented in an alternate sectionGoals may be documented in an alternate sectionGoals may be documented in an alternate sectionGoals may be documented in an alternate sectionGoals may be documented in an alternate sectionGoals may be documented in an alternate sectionGoals may be documented in an alternate section INFORMATION SOURCE (unrecogn ized section and content) DATE CREATED AUTHOR 10/10/2022 [facility] DATE CREATED AUTHOR AUTHOR'S ORGANIZ ATION 02/09/2025 [facility] FOR RECORDS PERTAINING TO PATIENTS WHO ARE OR HAVE BEEN ENROLLED IN A CHEMICAL DEPENDENCY/SUBSTANCEABUSE PROGRAM, SOME INFORMATION MAY BE OMITTED. This clinical summary was aggregated from multiple sources. Caution should be exercised in using it in the provision of clinical care. This summary normalizes information from multiple sources, and as a consequence, information in this document may materially change the coding, format and clinical context of patient data. In addition, data may be omitted in some cases. CLINICAL DECISIONS SHOULD BE BASED ON THE PRIMARY CLINICAL RECORDS. [employer] [facility]. provides no warranty or guarantee of the accuracy or completeness of information in this document.
== END ==
LOC: OLS.SW 05:00
PROVIDERS: PCP Internal Medicine; Visit Provider Internal Medicine
DX: I10 Essential (primary) hypertension (principal); E78.5 Hyperlipidemia, unspecified; E03.9 Hypothyroidism, unspecified; F03.90 Unspecified dementia, unspecified severity, without behavioral disturbance, psychotic disturbance, mood disturbance, and anxiety; E55.9 Vitamin D deficiency, unspecified
CPT/HCPCS: 36415; 82306; 82607; 84443; 85027

== ENCOUNTER → 2025-02-24 | Outpatient (REF) | payer MEDICARE, MEDICAID, SELFPAY ==
[2025-02-24 11:30] LABS: Cholesterol 130 mg/dL (<=200); Low Density Lipoprotein Calc. 67 mg/dL; Triglycerides 95 mg/dL; Very Low Density Lipoprotein 19 mg/dL (5-40); cholesterol:hdl ratio screen 2.96
== END ==
LOC: OLS.SW 05:00
PROVIDERS: PCP Internal Medicine; Visit Provider Internal Medicine
DX: I10 Essential (primary) hypertension (principal); F03.90 Unspecified dementia, unspecified severity, without behavioral disturbance, psychotic disturbance, mood disturbance, and anxiety; E03.9 Hypothyroidism, unspecified; E78.5 Hyperlipidemia, unspecified
CPT/HCPCS: 36415; 80061

== ENCOUNTER → 2025-03-17 05:00 | Outpatient (REF) | payer MEDICARE, MEDICAID, SELFPAY ==
--- OUTSIDE RECORDS SUMMARY | 2025-03-17 04:09 | XMS RPT_ITS | CCD ---
Author Organization [facility] Care Team Providers Care Helper Electrical Name Role Phone Gavino Melendez MD Primary Care Provider Dr. Gavino Melendez Primary Care Provider Dr. Nima Zimmerman Attending Provider Dr. Nima Zimmerman Referring Provider Dr. Gavino Melendez Referring Provider Kavya Ramos Attending Provider Unavailable Gavino Melendez MD Primary Care Provider Gavino Melendez MD Primary Care Provider Dr. Gavino Melendez Primary Care Provider Dr. Nima Zimmerman Attending Provider Dr. Nima Zimmerman Referring Provider MD Bob Ron Emergency Provider Dr. Oz Mar Admit Provider Dr. Oz Mar Attending Provider Dr. Oz Mar Other Provider Dr. Tanya Greenwood Attending Provider Dr. Tanya Greenwood Other Provider Dr. William Mclean Attending Provider Dr. William Mclean Other Provider GAVINO MELENDEZ Attending Unavailable GAVINO MELENDEZ Referring Unavailable GAVINO MELENDEZ Primary Care Unavailable ELDERBROCK, GAVINO D Attending Unavailable ELDERBROCK, GAVINO D Primary Care Unavailable ELDERBROCK, GAVINO D Referring Unavailable ELDERBROCK, GAVINO D Primary Care Unavailable JYOTI JAREN Attending Unavailable ELDERBROCK, GAVINO D Primary Care Unavailable ELDERBROCK, GAVINO D Attending Unavailable ELDERBROCK, GAVINO D Primary Care Unavailable ELDERBROCK, GAVINO D Attending Unavailable ELDERBROCK, GAVINO D Referring Unavailable ELDERBROCK, GAVINO D Primary Care Unavailable ELDERBROCK, GAVINO D Referring Unavailable ELDERAVELCK, GAVINO D Primary Care Unavailable Dr. Ifrah Baker Primary Care Provider UnavailDr. Quirino Walker Referring Provider Dr. Quirino Marks Other Provider Joy, Dr. Palma Attending Provider Dr. Ifrah Baker Primary Care Provider UnavailDr. Quirino Walker Referring Provider Dr. Quirino Marks Other Provider Joy, Dr. Palma Attending Provider Dr. Tray Cabrera Attending Provider Dr. Ifrah Bakre Referring Provider Unavailable HAO Martínez Attending Provider Dr. Tray Cabrera Referring Provider Dr. Ifrah Baker MD Primary Care Provider Dr. Tray Yuen MD Attending Provider [phone] Dr. Tray Cabrera MD Referring Provider [phone] Dr. Ifrah Baker MD Referring Provider Unavaila Krystal Gonzalez Attending Provider Dr. Ifrah Baker MD Primary Care Provider Dr. Tray Yuen MD Attending Provider [phone] Dr. Tray Cabrera MD Referring Provider Dr. Ifrah Baker MD Attending Provider Unavaila Ifrah Segura Primary Care Unavailable Ifrah Baker Referring Unavailable Krystal Martínez Attending Unavail able Gudla, Ifrah Primary Care Unavailable Gudla OLS, Ifrah Attending Unavailable Gudla, Ifrah Primary Care Unavailable Gudla OLS, Ifrah Attending Unavailable Gudla, Ifrah Primary Care Unavailable Rick, [place] Attending Unavailable Rick, [place] Referring Unavailable Rick, [place] Referring Unavailable Gudla, Ifrah Primary Care Unavailable Rick, Tray Attending Unavailable Gudla, Ifrah Primary Care Unavailable [...] Care Unavailable Gudla OLS, Ifrah Attending Unavailable Rick, [place] Referring Unavailable Rick, Tray Attending Unavailable Gudla, Ifrah Primary Care Unavailable Rick, Tray Attending Unavailable Gudla, Ifrah Primary Care Unavailable Gudla, Ifrah Primary Care Unavailable Rick, [place] Attending Unavailable Rick, [place] Referring Unavailable Gudla, Ifrah Primary Care Unavailable Rick, Tray Attending Unavailable Rick, [place] Referring Unavailable Allergies Allergy Classification Reported Allergen(s) Allergy Type Date of Onset Reaction(s) Facility (13 sources) Amoxicillin; Translations: [AMOXICILLIN] Drug Allergy 5 [facility] (13 sources) Cefadroxil; Translations: [CEFADROXIL] Drug Allergy 5 [facility] (13 sources) Grass pollen; Translations: [GRASS POLLEN] Propensity to adverse reactions 5 [facility] Work Phone: (13 sources) Ofloxacin; Translations: [OFLOXACIN] [facility] (13 sources) [place] Needle Oil; Translations: [PINE NEEDLE OIL] Propensity to adverse reactions 5 [facility] Work Phone: (13 sources) Penicillins Allergy to substance 2 Other [facility] (13 sources) Sulfonamides (Antibiotic) Allergy to substance 2 Other [facility] (4 sources) PINE Allergy to substance 2 Itching [facility] (10 sources) Environmental Allergies: Uncoded; Translations: [Environmental Allergies: Uncoded] Allergy to substance 3 Itching [facility] Comment on above: PINE (1 source) Penicillins Drug allergy (disorder) 5 [facility] (1 source) Sulfonamides (Antibiotic) Drug allergy (disorder) 5 [facility] Medications Current Medications Medication Drug Class(es) [...] 1 tablet by dustin th once daily. busPIRone hydrochloride 10 mg oral tablet (20 sources) Start: 12-05-2021 take 10 mg by mouth once daily Buspirone Active 10 MG PO DAILY December 05, 2021 12:00am Start: 11-28-2021 take 1 tablet by dustin twice daily Buspirone 10 mg tablet Active [...] Comment on above: Take 1 tablet by [facility] once daily. gabapentin 300 mg oral capsule (3 sources) Anti-epileptic Agent Start: take 1 capsule by mouth once daily Gabapentin 300 mg capsule Active 300 mg PO daily October 30, 2024 1:00am levothyroxine sodium 0.1 mg oral tablet (20 sources) l-Thyroxine Start: 021 End: take 1 tablet by mouth once [...] sources) Serotonin and Norepinephrine Reuptake Inhibitor Start: 024 take 1 capsule by mouth once daily [...] above: IMPLANTED DEVICE(S): PPM Ventricular lead - Larry Operator: St Vern, Model # Tendril STS 8TC-58 , Serial # [id number] Atrial lead - Larry Operator: St Vern, Model # Tendril STS 8TC-52 , Serial # [id number] Generator - Larry Operator: St Vern, Model # Assurity MRI [id number] , Serial # [id number] Delirium, dementia, and amnestic and other cognitive disorders (20 sources) Dementia; Translations: [Unspecified dementia without behavioral disturbance] Onset: 05-30-2021 Chronic Disorders of lipid metabolism (20 sources) Hyperlipidemia; Translations: [Hyperlipidemia, unspecified] Onset: 08-01-2016 Chronic E Codes: Fall (8 sources) Fall in usp; Translations: [Unspecified fall, initial encounter] 05-29-2023 Episodic [...] influenza immunization; Translations: [Encounter for immunization] Episodic Nonspecific chest pain (20 sources) Chest [...] neoplasm of breast] Onset: 09-01-2019 09-01-2019 Episodic Malaise and fatigue (18 sources) Asthenia; Translations: [Weakness] Onset: 08-01-2024 Episodic Other acquired deformities (12 sources) Degenerative [...] Test Name Value Interpretation Reference Range Facility Lipid Profileon 02-24-2025 CHOL:HDL 2.96 Normal [facility] Comment on above: Order Comment: 408.2 Performed By: #### L 501.2657 #### [facility] [address] [place], [address] Cholesterol [Mass/Vol] 130 mg/dL Normal <=200 [facility] Comment on above: Order Comment: 408.2 Result Comment: Chol esterol level, Desirable <200 mg/dL Borderline high cholesterol 200-239 mg/dL High cholesterol >=240 mg/dL Recommendations of the NCEP Adult Treatment Panel for the following risk-cutoff thresholds for the [place] population. Performed By: #### L [id number] #### [facility] [address] [place], [address] Cholesterol in HDL [Mass/Vol] 44 mg/dL Normal [facility] Comment on above: Order Comment: 408.2 Result Comment: Gianna onal Cholesterol Education Program (NCEP) guidelines: <40 mg/dL: Low HDL-cholesterol (major risk factor for CHD) >= 60 mg/dL: High HDL-cholesterol (negative risk factor for CHD) HDL-cholesterol is affected by a number of factors, e.g. smoking, exercise, hormones, sex and age. Performed By: #### L [id number] #### [facility] [address] [place], [address] Cholesterol in LDL [Mass/Vol] 67 mg/dL Normal [facility] Comment on above: Order Comment: 408.2 Result Comment: Bord zebtpf=701-423 mg/dL Higher Vdxx=501 mg/dL or greater Performed By: #### L [id number] #### [facility] [address] [place], [address] Cholesterol in VLDL [Mass/Vol] 19 mg/dL Normal 5-40 [facility] Comment on above: Order Comment: 408.2 Performed By: #### L [id number] #### [facility] [address] [place], [address] Triglyceride [Mass/Vol] 95 mg/dL Normal [facility] Comment on above: Order Comment: 408.2 Result Comment: The drugs N-Acetylcysteine and Metamizole may falsely depress this assay. Normal range: <150 mg/dL Borderline High: 150-199 mg/dL High: 200-499 mg/dL Very High: >500 mg/dL Performed By: #### L [id number] #### [facility] [address] [place], [place], [id number] Automated blood erythrocyte countOrdered By: Ifrah Baker on 01-06-2025 RBC (Bld) [#/Vol] 4.05 10*6/uL Low 4.2-5.4 [facility] Comment on above: Order Comment: 408.2 Performed By: #### L [id number] #### [facility] [address] [place], [place], [id number] Automated blood hematocrit ( percentage)Ordered By: Ifrah Baker on 01-06-2025 Hematocrit (Bld) [Volume fraction] 39.6 % Normal 37-47 [facility] Comment on above: Order Comment: 408.2 Performed By: #### L [id number] #### [facility] [address] [place], [place], [id number] CBC-Complete Blood Cnt No Di ffon 01-06-2025 RDW SD 49.7 fl High 35.1-43.9 [facility] Comment on above: Order Comment: 408.2 Performed By: #### L [id number] #### [facility] [address] [place], [place], [address] Erythrocyte distribution wid th ratioOrdered By: Ifrah Baker on 01-06-2025 Erythrocyte distribution width (RBC) [Ratio] 13.7 % Normal 11.6-14.6 [facility] Comment on above: Order Comment: 408.2 Performed By: #### L [id number] #### [facility] [address] [place], [place], [address] Erythrocyte distribution wid th standard deviationOrdered By: Ifrah Baker on 01-06-2025 Erythrocyte distribution width (RBC) [Ratio] 49.7 fl High 35.1-43.9 [facility] Hemoglobin measurementOrdere d By: Ifrah Baker on 01-06-2025 Hemoglobin (Bld) [Mass/Vol] 12.4 g/dL Normal 12.0-15.0 [facility] Comment on above: Order Comment: 408.2 Performed By: #### L [id number] #### [facility] [address] [place], [place], [phone] ([address] MCV (mean corpuscular volume ) determinationOrdered By: Ifrah Baker on 01-06-2025 MCV (RBC) [Entitic vol] 97.8 fL Normal 81-99 [facility] Comment on above: Order Comment: 408.2 Performed By: #### L [id number] #### [facility] [address] [place], [place], [id number] (871) Mean corpuscular hemoglobin (MCH) determinationOrdered By: Ifrah Baker on 01-06-2025 MCH (RBC) [Entitic mass] 30.6 pg Normal 27.0-32.0 [facility] Comment on above: Order Comment: 408.2 Performed By: #### L [id number] #### [facility] [address] [place], [address] Mean corpuscular hemoglobin concentration (MCHC) determinationOrdered By: Ifrah Baker on 01-06-2025 MCHC (RBC) [Mass/Vol] 31.3 g/dL Low 32-36 [facility] Comment on above: Order Comment: 408.2 Performed By: #### L [id number] #### [facility] [address] [place], [place], [phone] (283 Mean platelet volume determi nationOrdered By: Ifrah Baker on 01-06-2025 Platelet mean volume (Bld) [Entitic vol] 11.8 fL Normal 6.2-12.0 [facility] Comment on above: Order Comment: 408.2 Performed By: #### L [id number] #### [facility] [address] [place], [address] Platelet countOrdered By: Shaun Baker on 01-06-2025 Platelets (Bld) [#/Vol] 210 10*3/uL Normal 150-450 [facility] Comment on above: Order Comment: 408.2 Performed By: #### L [id number] #### [facility] [address] [place], [address] TSH DL <= 0.005 mIU/L QnOrde red By: Ifrah Baker on 01-06-2025 TSH Qn 2.250 uIU/mL 0.300-4.200 [facility] Thyroid Stim Hormone (TSH)on 01-06-2025 TSH 2.250 uIU/mL Normal 0.300-4.200 [facility] Comment on above: Order Comment: 408.2 Performed By: #### L 501.9520 #### [facility] [address] [place], [address] Vitamin B12on 01-06-2025 Cobalamin (Vitamin B12) [Mass/Vol] 3227 pg/mL High 180-914 [facility] Comment on above: Order Comment: 408.2 Performed By: #### L [id number] #### [facility] [address] [place], [address] Vitamin B12 ser/plasOrdered By: Ifrah Baker on 01-06-2025 Cobalamin (Vitamin B12) [Mass/Vol] 3227 pg/mL High 180-914 [facility] Vitamin D,25 Hydroxyon 01-06 Vitamin D 25-OH 27.9 ng/mL Low 30-100 [facility] Comment on above: Order Comment: 408.2 Result Comment: [place] min D Status Deficiency: <20 ng/mL (50nmol/L) Insufficiency: 20-30 ng/mL (50-75 nmol/L) Sufficiency: 30-100 ng/mL (75-250 nmol/L) Toxicity: >100 ng/mL (>250 nmol/L) Performed By: #### L 501.9520 #### [facility] [address] [place], [place], [id number] White blood cell (WBC) count Ordered By: Ifrah Baker on 01-06-2025 WBC (Bld) [#/Vol] 7.1 10*3/uL Normal 4.4-11.0 [facility] Comment on above: Order Comment: 408.2 Performed By: #### L [id number] #### [facility] [address] [place], [place], [id number] TSH DL <= 0.005 mIU/L QnOrde red By: Ifrah Baker on 12-09-2024 TSH Qn 3.680 uIU/mL 0.300-4.200 [facility] Thyroid Stim Hormone (TSH)on 12-09-2024 TSH 3.680 uIU/mL Normal 0.300-4.200 [facility] Comment on above: Order Comment: 408.2 Performed By: #### L 501.9520 #### [facility] [address] [place], [place], [id number] Cardiology Visit Reporton Cardiology Visit Report [facility] [address] [place], [place] [address] OFFICE VISIT Date of Service: 10/30/24 MR#: [id number] Acct: [id number] Name: LETTY LEON Rep #: [id number] : 1940 Provider: HAO Herrera Age/Sex: 84/F Location: [facility] Status: Signed HPI HPI History of Present [...] poor historian. She is now residing at [facility]. 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 Normal [facility] Pacemaker Checkon 10-30-2024 Pacemaker Check [facility] [place] [facility] [address] [place] [address] Pacemaker Check Date of Service: 10/30/24 1416 MR#: [id number] Acct: [id number] Name: LETTY LEON Rep #: [id number] : 1940 From: Kavya Ramos Age/Sex: 84/F Location[place] [facility] Status: Signed Assessment and Plan Assessment and Plan (1) Presence of permanent cardiac pacemaker: Status: Acute Comment: IMPLANTED DEVICE(S): PPM Ventricular lead - Larry Operator: St Vern, Model # Tendril STS 2088TC-58 , Serial # [id number] PPM Atrial lead - Larry Operator: St Vern, Model # Tendril STS 2088TC-52 , Serial # [id number] PPM Generator - Larry Operator: St Vern, Model # Assurity MRI [id number] , Serial # [id number] (2) PAF (paroxysmal atrial fibrillation): Status: Acute (3) Sick sinus syndrome due to SA node dysfunction: Status: Acute 10/30/246 Date Kavya Mcfarlane Signature: Date (if applicable) CC: Normal [facility] CBC W/Diff, Automatedon 11-0 -2023 Absolute Lymph 0.97 X10 3/uL Normal 0.83-4.51 [facility] Comment on above: Performed By: #### L [id number] #### [facility] [address] [place], [place], [id number] Absolute Neut 2.1 X10 3/uL Normal 2.0-7.7 [facility] Comment on above: Performed By: #### L [id number] #### [facility] [address] [place], [address] Basophils/100 WBC (Bld) 0.5 % Normal 0-1 [facility] Comment on above: Performed By: #### L 501.9589 #### [facility] [address] [place], [address] Eosinophils/100 WBC (Bld) 13.7 % High 0-5 [facility] Comment on above: Performed By: #### L 501.20 #### [facility] [address] [place], [address] Erythrocyte distribution width (RBC) [Ratio] 13.6 % Normal 11.6-14.6 [facility] Comment on above: Performed By: #### L 501.9520 #### [facility] [address] [place], [address] Hematocrit (Bld) [Volume fraction] 32.9 % Low 37-47 [facility] Comment on above: Performed By: #### L 501.95 #### [facility] [address] [place], [address] Hemoglobin (Bld) [Mass/Vol] 10.5 g/dL Low 12.0-15.0 [facility] Comment on above: Performed By: #### L 501.9520 #### [facility] [address] [place], [address] IG% 0.200 Normal 0.0-0.9 [facility] Comment on above: Result Comment: IG% - Immature Granulocytes (promyelocytes, myelocytes and metamyelocytes) > 1% indicates that a LEFT SHIFT is Present. Performed By: #### L 501.9534 #### [facility] [address] [place], [address] Lymphocytes/100 WBC (Bld) 23.8 % Normal 19-41 [facility] Comment on above: Performed By: #### L [id number] #### [facility] [address] [place], [address] MCH (RBC) [Entitic mass] 30.7 pg Normal 27.0-32.0 [facility] Comment on above: Performed By: #### L 501.0914 #### [facility] [address] [place], [address] MCHC (RBC) [Mass/Vol] 31.9 g/dL Low 32-36 [facility] Comment on above: Performed By: #### L 501.95 #### [facility] [address] [place], [address] MCV (RBC) [Entitic vol] 96.2 fL Normal 81-99 [facility] Comment on above: Performed By: #### L 501.02 #### [facility] [address] [place], [address] Monocytes/100 WBC (Bld) 11.5 % High 0-10 [facility] Comment on above: Performed By: #### L 501.9519 #### [facility] [address] [place], [address] Neutrophils/100 WBC (Bld) 50.3 % Normal 47-70 [facility] Comment on above: Performed By: #### L 501.9519 #### [facility] [address] [place], [address] Nucleated RBC (Bld) [#/Vol] 0 10*3/uL Normal 0-5 [facility] Comment on above: Performed By: #### L 501.20 #### [facility] [address] [place], [address] Platelet mean volume (Bld) [Entitic vol] 11.6 fL Normal 6.2-12.0 [facility] Comment on above: Performed By: #### L 501.6420 #### [facility] [address] [place], [address] Platelets (Bld) [#/Vol] 178 10*3/uL Normal 150-450 [facility] Comment on above: Performed By: #### L 249.9520 #### [facility] [address] [place], [address] RBC (Bld) [#/Vol] 3.42 10*6/uL Low 4.2-5.4 [facility] Comment on above: Performed By: #### L 004.9520 #### [facility] [address] [place], [address] RDW SD 48.0 fl High 35.1-43.9 [facility] Comment on above: Performed By: #### L 124.9520 #### [facility] [address] [place], [address] WBC (Bld) [#/Vol] 4.1 10*3/uL Low 4.4-11.0 [facility] Comment on above: Performed By: #### L 482.9520 #### [facility] [address] [place], [address] Comprehensive Metabolic Prof [facility] 06-30-2024 Albumin [Mass/Vol] 2.9 g/dL Low 3.2-5.0 [facility] Comment on above: Performed By: #### L 723.9520 #### [facility] [address] [place], [address] Albumin/Globulin [Mass ratio] 1.0 {ratio} Normal 0.9-2.4 [facility] Comment on above: Performed By: #### L 040.9595 #### [facility] [address] [place], [address] ALK P 119 U/L High 45-117 [facility] Comment on above: Performed By: #### L 955.2627 #### [facility] [address] [place], [address] ALT [Catalytic activity/Vol] 19 U/L Normal 13-56 [facility] Comment on above: Performed By: #### L 448.8879 #### [facility] [address] [place], [address] AST [Catalytic activity/Vol] 17 U/L Normal 15-37 [facility] Comment on above: Performed By: #### L 650.0920 #### [facility] [address] [place], [address] Bilirubin [Mass/Vol] 0.60 mg/dL Normal 0.20-1.00 [facility] Comment on above: Result Comment: For patients on eltrombopag therapy, use of Dimension [place] TBIL is not recommended. Performed By: #### L 458.4020 #### [facility] [address] [place], [address] BUN/CRE 25.8 RATIO High 10-20 [facility] Comment on above: Performed By: #### L 834.6650 #### [facility] [address] [place], [address] CA,Total 8.5 mg/dL Normal 8.5-10.1 [facility] Comment on above: Performed By: #### L 533.5620 #### [facility] [address] [place], [address] Chloride [Moles/Vol] 112 mmol/L High 98-107 [facility] Comment on above: Performed By: #### L 844.4220 #### [facility] [address] [place], [address] CO2 [Moles/Vol] 27.0 mmol/L Normal 21.0-32.0 [facility] Comment on above: Performed By: #### L 400.6188 #### [facility] [address] [place], [address] Creatinine [Mass/Vol] 1.24 mg/dL High 0.55-1.02 [facility] Comment on above: Result Comment: The validity of the calculated GFR GFRAA in patients over 70 years has not been determined. Clinical correlation is essential. Performed By: #### L 205.9520 #### [facility] [address] [place], [address] EST GFR - AA 53 mL/min Low >60 [facility] Comment on above: Result Comment: Afri can [place] GFR Calc Performed By: #### L 766.9520 #### [facility] [address] [place], [address] GAP 5 Normal 5-15 [facility] Comment on above: Performed By: #### L 359.9520 #### [facility] [address] [place], [address] GFR/1.73 sq M.predicted among non-blacks MDRD (S/P/Bld) [Vol rate/Area] 44 mL/min/{1.73_m2} Low >60 [facility] Comment on above: Result Comment: Non- GFR Calc Performed By: #### L 116.0820 #### [facility] [address] [place], [address] Globulin (S) [Mass/Vol] 3.0 g/dL Normal 2.2-4.2 [facility] Comment on above: Performed By: #### L 377.8220 #### [facility] [address] [place], [address] Glucose [Mass/Vol] 77 mg/dL Normal 74-106 [facility] Comment on above: Performed By: #### L 530.9520 #### [facility] [address] [place], [address] Potassium [Moles/Vol] 4.2 mmol/L Normal 3.5-5.1 [facility] Comment on above: Performed By: #### L 501.9520 #### [facility] [address] [place], [address] Sodium [Moles/Vol] 143 mmol/L Normal 136-145 [facility] Comment on above: Performed By: #### L 501.9520 #### [facility] [address] [place], [address] T PROT 5.9 g/dL Low 6.4-8.2 [facility] Comment on above: Performed By: #### L 501.9520 #### [facility] [address] [place], [address] Urea nitrogen [Mass/Vol] 32 mg/dL High 03-13 [facility] Comment on above: Performed By: #### L 501.9520 #### [facility] [address] [place], [address] Thyroid Stim Hormone (TSH)on 06-24-2024 TSH 1.400 uIU/mL Normal 0.358-3.740 [facility] Comment on above: Order Comment: 403.1 Performed By: #### L 501.9520 #### [facility] [address] [place], [address] Basic Metabolic Profile (BMP )on 05-12-2024 BUN/CRE 20.5 RATIO High 10- [facility] Comment on above: Order Comment: 408.2 Performed By: #### L 501.9520 #### [facility] [address] [place], [address] CA,Total 9.1 mg/dL Normal 8.5-10.1 [facility] Comment on above: Order Comment: 408.2 Performed By: #### L 501.9520 #### [facility] [address] [place], [address] Chloride [Moles/Vol] 110 mmol/L High 98-107 [facility] Comment on above: Order Comment: 408.2 Performed By: #### L 501.9520 #### [facility] [address] [place], [address] CO2 [Moles/Vol] 27.0 mmol/L Normal 21.0-32.0 [facility] Comment on above: Order Comment: 408.2 Performed By: #### L 101.9520 #### [facility] [address] [place], [address] Creatinine [Mass/Vol] 1.71 mg/dL High 0.55-1.02 [facility] Comment on above: Order Comment: 408.2 Result Comment: The validity of the calculated GFR GFRAA in patients over 70 years has not been determined. Clinical correlation is essential. Performed By: #### L 208.9520 #### [facility] [address] [place], [address] EST GFR - AA 37 mL/min Low >60 [facility] Comment on above: Order Comment: 408.2 Result Comment: Afri can Qatari GFR Calc Performed By: #### L 337.9520 #### [facility] [address] [place], [address] GAP 6 Normal 5-15 [facility] Comment on above: Order Comment: 408.2 Performed By: #### L [id number] #### [facility] [address] [place], [address] GFR/1.73 sq M.predicted among non-blacks MDRD (S/P/Bld) [Vol rate/Area] 30 mL/min/{1.73_m2} Low >60 [facility] Comment on above: Order Comment: 408.2 Result Comment: Non- GFR Calc Performed By: #### L 501.9520 #### [facility] [address] [place], [address] Glucose [Mass/Vol] 94 mg/dL Normal 74-106 [facility] Comment on above: Order Comment: 408.2 Performed By: #### L [id number] #### [facility] [address] [place], [address] Potassium [Moles/Vol] 4.7 mmol/L Normal 3.5-5.1 [facility] Comment on above: Order Comment: 408.2 Performed By: #### L [id number] #### [facility] [address] [place], [address] Sodium [Moles/Vol] 143 mmol/L Normal 136-145 [facility] Comment on above: Order Comment: 408.2 Performed By: #### L [id number] #### [facility] [address] [place], [address] Urea nitrogen [Mass/Vol] 35 mg/dL High 7-18 [facility] Comment on above: Order Comment: 408.2 Performed By: #### L [id number] #### [facility] [address] [place], [address] Gentamicin,Once Daily Trough on 05-01-2024 GENT. OD TROUGH 0.9 ug/mL Normal <1.0 [facility] Comment on above: Order Comment: 404.1 0000 Result Comment: REFE RENCE RANGE OF GENTAMICIN ONCE DAILY TROUGH IS <1.0 ug/ml GENTAMICIN ONCE DAILY TROUGH >1.0 ug/ml IS TOXIC Performed By: #### L 501.8750 #### [facility] [address] [place], [address] Basic Metabolic Profile (BMP )on 04-29-2024 BUN/CRE 22.6 RATIO High 10-20 [facility] Comment on above: Order Comment: 404.1 Performed By: #### L 100.0500, L500.2500 #### [facility] [address] [place], [address] CA,Total 8.9 mg/dL Normal 8.5-10.1 [facility] Comment on above: Order Comment: 404.1 Performed By: #### L 100.0500, L500.2500 #### [facility] [address] [place], [address] Chloride [Moles/Vol] 107 mmol/L Normal 98-107 [facility] Comment on above: Order Comment: 404.1 Performed By: #### L 100.0500, L500.2500 #### [facility] [address] [place], [address] CO2 [Moles/Vol] 24.0 mmol/L Normal 21.0-32.0 [facility] Comment on above: Order Comment: 404.1 Performed By: #### L 100.0500, L500.2500 #### [facility] [address] [place], [address] Creatinine [Mass/Vol] 1.46 mg/dL High 0.55-1.02 [facility] Comment on above: Order Comment: 404.1 Result Comment: The validity of the calculated GFR GFRAA in patients over 70 years has not been determined. Clinical correlation is essential. Performed By: #### L 100.0500, L500.2500 #### [facility] [address] [place], [address] EST GFR - AA 44 mL/min Low >60 [facility] Comment on above: Order Comment: 404.1 Result Comment: Afri can Qat[place] GFR Calc Performed By: #### L 100.0500, L500.2500 #### [facility] [address] [place], [address] GAP 7 Normal 5-15 [facility] Comment on above: Order Comment: 404.1 Performed By: #### L 100.0500, L500.2500 #### [facility] [address] [place], [address] GFR/1.73 sq M.predicted among non-blacks MDRD (S/P/Bld) [Vol rate/Area] 36 mL/min/{1.73_m2} Low >60 [facility] Comment on above: Order Comment: 404.1 Result Comment: Non- GFR Calc Performed By: #### L 100.0500, L500.2500 #### [facility] [address] [place], [address] Glucose [Mass/Vol] 88 mg/dL Normal 74-106 [facility] Comment on above: Order Comment: 404.1 Performed By: #### L 100.0500, L500.2500 #### [facility] [address] [place], [address] Potassium [Moles/Vol] 4.5 mmol/L Normal 3.5-5.1 [facility] Comment on above: Order Comment: 404.1 Performed By: #### L 100.0500, L500.2500 #### [facility] [address] [place], [address] Sodium [Moles/Vol] 138 mmol/L Normal 136-145 [facility] Comment on above: Order Comment: 404.1 Performed By: #### L 100.0500, L500.2500 #### [facility] [address] [place], [address] Urea nitrogen [Mass/Vol] 33 mg/dL High 7-18 [facility] Comment on above: Order Comment: 404.1 Performed By: #### L 100.0500, L500.2500 #### [facility] [address] [place], [address] CBC-Complete Blood Cnt No Di ffon 04-29-2024 Erythrocyte distribution width (RBC) [Ratio] 12.8 % Normal 11.6-14.6 [facility] Comment on above: Order Comment: 404.1 Performed By: #### L 100.0500, L500.2500 #### [facility] [address] [place], [address] Hematocrit (Bld) [Volume fraction] 41.1 % Normal 37-47 [facility] Comment on above: Order Comment: 404.1 Performed By: #### L 100.0500, L500.2500 #### [facility] [address] [place], [address] Hemoglobin (Bld) [Mass/Vol] 12.9 g/dL Normal 12.0-15.0 [facility] Comment on above: Order Comment: 404.1 Performed By: #### L 100.0500, L500.2500 #### [facility] [address] [place] [place], [address] MCH (RBC) [Entitic mass] 30.6 pg Normal 27.0-32.0 [facility] Comment on above: Order Comment: 404.1 Performed By: #### L 100.0500, L500.2500 #### [facility] [address] [place], [address] MCHC (RBC) [Mass/Vol] 31.4 g/dL Low 32-36 [facility] Comment on above: Order Comment: 404.1 Performed By: #### L 100.0500, L500.2500 #### [facility] [address] [place], [address] MCV (RBC) [Entitic vol] 97.6 fL Normal 81-99 [facility] Comment on above: Order Comment: 404.1 Performed By: #### L 100.0500, L500.2500 #### [facility] [address] [place], [address] Platelet mean volume (Bld) [Entitic vol] 11.3 fL Normal 6.2-12.0 [facility] Comment on above: Order Comment: 404.1 Performed By: #### L 100.0500, L500.2500 #### [facility] [address] [place], [address] Platelets (Bld) [#/Vol] 293 10*3/uL Normal 150-450 [facility] Comment on above: Order Comment: 404.1 Performed By: #### L 100.0500, L500.2500 #### [facility] [address] [place], [address] RBC (Bld) [#/Vol] 4.21 10*6/uL Normal 4.2-5.4 [facility] Comment on above: Order Comment: 404.1 Performed By: #### L 100.0500, L500.2500 #### [facility] [address] [place], [address] RDW SD 45.4 fl High 35.1-43.9 [facility] Comment on above: Order Comment: 404.1 Performed By: #### L 100.0500, L500.2500 #### [facility] [address] [place], [address] WBC (Bld) [#/Vol] 7.5 10*3/uL Normal 4.4-11.0 [facility] Comment on above: Order Comment: 404.1 Performed By: #### L 100.0500, L500.2500 #### [facility] [address] [place], [address] Gentamicin,Once Daily Trough on 04-25-2024 GENT. OD TROUGH 3.5 ug/mL Invalid Interpretation Code <1.0 [facility] Comment on above: Order Comment: 404.1 0000 Result Comment: REFE RENCE RANGE OF GENTAMICIN ONCE DAILY TROUGH IS <1.0 ug/ml GENTAMICIN ONCE DAILY TROUGH >1.0 ug/ml IS TOXIC Critical Result(s) Called at: 10:59:53 04/25/2024 by: Kathleen Grigsby. Results read back by same. Gentamicin minimal values in excess of 2.0 ug/mL for longer than 10 days are potentially toxic. Peak Gentamicin therapeutic range: 4.0 - 8.0 ug/mL Performed By: #### L 501.8750 #### [facility] [address] [place], [address] Gentamicin, Once Daily Peako n 04-23-2024 GENT. OD PEAK 9.3 ug/mL Normal 6.0-15.0 [facility] Comment on above: Order Comment: 0000 Result Comment: GENT AMICIN < 6.0 ug/ml IS SUB-THERAPEUTIC >15.0 ug/ml IS TOXIC Performed By: #### L 501.8795 #### [facility] [address] [place], [address] Gentamicin,Once Daily Trough on 04-23-2024 GENT. OD TROUGH 4.6 ug/mL Invalid Interpretation Code <1.0 [facility] Comment on above: Order Comment: 404.1 0000 [...] ug/mL Performed By: #### L 501.8750 #### [facility] [address] [facility] [place], [address] Basic Metabolic Profile (BMP )on 04-21-2024 BUN/CRE 21.8 RATIO High 10-20 [facility] Comment on above: Order Comment: 403-1 Performed By: #### L 100.0500, L500.2500 #### [facility] [address] [place], [address] CA,Total 8.9 mg/dL Normal 8.5-10.1 [facility] Comment on above: Order Comment: 403-1 Performed By: #### L 100.0500, L500.2500 #### [facility] [address] [place], [address] Chloride [Moles/Vol] 111 mmol/L High 98-107 [facility] Comment on above: Order Comment: 403-1 Performed By: #### L 100.0500, L500.2500 #### [facility] [address] [place], [address] CO2 [Moles/Vol] 24.0 mmol/L Normal 21.0-32.0 [facility] Comment on above: Order Comment: 403-1 Performed By: #### L 100.0500, L500.2500 #### [facility] [address] [place], [address] Creatinine [Mass/Vol] 1.19 mg/dL High 0.55-1.02 [facility] Comment on above: Order Comment: 403-1 Result Comment: The validity of the calculated GFR GFRAA in patients over 70 years has not been determined. Clinical correlation is essential. Performed By: #### L 100.0500, L500.2500 #### [facility] [address] [place], [address] EST GFR - AA 55 mL/min Low >60 [facility] Comment on above: Order Comment: 403-1 Result Comment: Afri can Qatari GFR Calc Performed By: #### L 100.0500, L500.2500 #### [facility] [address] [place], [address] GAP 7 Normal 5-15 [facility] Comment on above: Order Comment: 403-1 Performed By: #### L 100.0500, L500.2500 #### [facility] [address] [place], [address] GFR/1.73 sq M.predicted among non-blacks MDRD (S/P/Bld) [Vol rate/Area] 46 mL/min/{1.73_m2} Low >60 [facility] Comment on above: Order Comment: 403-1 Result Comment: Non- GFR Calc Performed By: #### L 100.0500, L500.2500 #### [facility] [address] [place], [address] Glucose [Mass/Vol] 96 mg/dL Normal 74-106 [facility] Comment on above: Order Comment: 403-1 Performed By: #### L 100.0500, L500.2500 #### [facility] [address] [place], [address] Potassium [Moles/Vol] 4.2 mmol/L Normal 3.5-5.1 [facility] Comment on above: Order Comment: 403-1 Performed By: #### L 100.0500, L500.2500 #### [facility] [address] [place], [address] Sodium [Moles/Vol] 142 mmol/L Normal 136-145 [facility] Comment on above: Order Comment: 403-1 Performed By: #### L 100.0500, L500.2500 #### [facility] [address] [place], [address] Urea nitrogen [Mass/Vol] 26 mg/dL High 7-18 [facility] Comment on above: Order Comment: 403-1 Performed By: #### L 100.0500, L500.2500 #### [facility] [address] [place], [address] CBC-Complete Blood Cnt No Di ffon 04-21-2024 Erythrocyte distribution width (RBC) [Ratio] 12.5 % Normal 11.6-14.6 [facility] Comment on above: Order Comment: 403-1 Performed By: #### L 100.0500, L500.2500 #### [facility] [address] [place], [address] Hematocrit (Bld) [Volume fraction] 35.3 % Low 37-47 [facility] Comment on above: Order Comment: 403-1 Performed By: #### L 100.0500, L500.2500 #### [facility] [address] [place], [address] Hemoglobin (Bld) [Mass/Vol] 11.2 g/dL Low 12.0-15.0 [facility] Comment on above: Order Comment: 403-1 Performed By: #### L 100.0500, L500.2500 #### [facility] [address] [place], [address] MCH (RBC) [Entitic mass] 30.4 pg Normal 27.0-32.0 [facility] Comment on above: Order Comment: 403-1 Performed By: #### L 100.0500, L500.2500 #### [facility] [address] [place], [address] MCHC (RBC) [Mass/Vol] 31.7 g/dL Low 32-36 [facility] Comment on above: Order Comment: 403-1 Performed By: #### L 100.0500, L500.2500 #### [facility] [address] [place], [address] MCV (RBC) [Entitic vol] 95.7 fL Normal 81-99 [facility] Comment on above: Order Comment: 403-1 Performed By: #### L 100.0500, L500.2500 #### [facility] [address] [place], [address] Platelet mean volume (Bld) [Entitic vol] 10.4 fL Normal 6.2-12.0 [facility] Comment on above: Order Comment: 403-1 Performed By: #### L 100.0500, L500.2500 #### [facility] [address] [place], [address] Platelets (Bld) [#/Vol] 296 10*3/uL Normal 150-450 [facility] Comment on above: Order Comment: 403-1 Performed By: #### L 100.0500, L500.2500 #### [facility] [address] [place], [address] RBC (Bld) [#/Vol] 3.69 10*6/uL Low 4.2-5.4 [facility] Comment on above: Order Comment: 403-1 Performed By: #### L 100.0500, L500.2500 #### [facility] [address] [place], [address] RDW SD 44.2 fl High 35.1-43.9 [facility] Comment on above: Order Comment: 403-1 Performed By: #### L 100.0500, L500.2500 #### [facility] [address] [place], [address] WBC (Bld) [#/Vol] 6.6 10*3/uL Normal 4.4-11.0 [facility] Comment on above: Order Comment: 403-1 Performed By: #### L 100.0500, L500.2500 #### [facility] [address] [place], [address] Wound Cultureon 04-21-2024 LEFT Copy of report sent to Infection Control Printer [id number] 04/21/24 0832 [place]LOYD. Escherichia coli Amount Growth 2+ Proteus mirabilis Amount Growth 2+ Meth. resistant Staph. aureus Amount Growth 3+ mecA Testing not performed Escherichia coli: REACTION Ampicillin Islt HAYLEY 4 S Ampicillin+Sulbac Islt HAYLEY <=2 S ceFAZolin Islt HAYLEY <=4 S Cefepime Islt HAYLEY <=0.12 S cefTRIAXone Islt HAYLEY <=0.25 S Ciprofloxacin Islt HAYLEY <=0.25 S Ertapenem Islt HALYEY <=0.12 S B-Lactamase Extended Susc Islt NEG [...] S Vancomycin Islt HAYLEY 1 S Normal [facility] Comment on above: Performed By: #### L 501.1120 #### [facility] [address] [place], [place], [id number] Gram Stainon 04-19-2024 GS LEFT Gram Stain 2+ Gram positive cocci 1+ White Blood Cells No Epithelial cells Normal [facility] Comment on above: Performed By: #### L 501.6720 #### [facility] [address] [place], [place], [address] Basic Metabolic Profile (BMP )on 04-07-2024 BUN/CRE 26.1 RATIO High 10- [facility] Comment on above: Performed By: #### L 501.3620 #### [facility] [address] [place], [place], [address] CA,Total 8.8 mg/dL Normal 8.5-10.1 [facility] Comment on above: Performed By: #### L 981.9520 #### [facility] [address] [place], [address] Chloride [Moles/Vol] 109 mmol/L High 98-107 [facility] Comment on above: Performed By: #### L 501.9520 #### [facility] [address] [place], [address] CO2 [Moles/Vol] 26.0 mmol/L Normal 21.0-32.0 [facility] Comment on above: Performed By: #### L 501.9520 #### [facility] [address] [place], [address] Creatinine [Mass/Vol] 1.15 mg/dL High 0.55-1.02 [facility] Comment on above: Result Comment: The validity of the calculated GFR GFRAA in patients over 70 years has not been determined. Clinical correlation is essential. Performed By: #### L 501.9520 #### [facility] [address] [place], [address] EST GFR - AA 58 mL/min Low >60 [facility] Comment on above: Result Comment: Afri can Qatari GFR Calc Performed By: #### L 501.9520 #### [facility] [address] [place], [address] GAP 6 Normal 5-15 [facility] Comment on above: Performed By: #### L 501.9520 #### [facility] [address] [place], [address] GFR/1.73 sq M.predicted among non-blacks MDRD (S/P/Bld) [Vol rate/Area] 48 mL/min/{1.73_m2} Low >60 [facility] Comment on above: Result Comment: Non- GFR Calc Performed By: #### L 501.9520 #### [facility] [address] [place], [address] Glucose [Mass/Vol] 85 mg/dL Normal 74-106 [facility] Comment on above: Performed By: #### L 501.9520 #### [facility] [address] [place], [address] Potassium [Moles/Vol] 4.3 mmol/L Normal 3.5-5.1 [facility] Comment on above: Performed By: #### L 501.9520 #### [facility] [address] [place], [address] Sodium [Moles/Vol] 141 mmol/L Normal 136-145 [facility] Comment on above: Performed By: #### L 501.9520 #### [facility] [address] [place], [address] Urea nitrogen [Mass/Vol] 30 mg/dL High 7-18 [facility] Comment on above: Performed By: #### L 501.9520 #### [facility] [address] [place], [address] CBC W/Diff, Automatedon 03-27-2023 Absolute Lymph 1.16 X10 3/uL Normal 0.83-4.51 [facility] Comment on above: Performed By: #### L 501.9520 #### [facility] [address] [place], [address] Absolute Neut 2.4 X10 3/uL Normal 2.0-7.7 [facility] Comment on above: Performed By: #### L 501.9520 #### [facility] [address] [place], [address] Basophils/100 WBC (Bld) 0.9 % Normal 0-1 [facility] Comment on above: Performed By: #### L 501.9520 #### [facility] [address] [place], [address] Eosinophils/100 WBC (Bld) 7.7 % High 0-5 [facility] Comment on above: Performed By: #### L 628.1749 #### [facility] [address] [place], [address] Erythrocyte distribution width (RBC) [Ratio] 13.6 % Normal 11.6-14.6 [facility] Comment on above: Performed By: #### L 824.20 #### [facility] [address] [place], [address] Hematocrit (Bld) [Volume fraction] 36.7 % Low 37-47 [facility] Comment on above: Performed By: #### L 477.9519 #### [facility] [address] [place], [address] Hemoglobin (Bld) [Mass/Vol] 11.5 g/dL Low 12.0-15.0 [facility] Comment on above: Performed By: #### L 694.9519 #### [facility] [address] [place] [place], [address] IG% 0.200 Normal 0.0-0.9 [facility] Comment on above: Result Comment: IG% - Immature Granulocytes (promyelocytes, myelocytes and metamyelocytes) > 1% indicates that a LEFT SHIFT is Present. Performed By: #### L 997.7993 #### [facility] [address] [place], [address] Lymphocytes/100 WBC (Bld) 24.8 % Normal 19-41 [facility] Comment on above: Performed By: #### L 816.4112 #### [facility] Laboratory [address] [place], [address] MCH (RBC) [Entitic mass] 30.7 pg Normal 27.0-32.0 [facility] Comment on above: Performed By: #### L [id number] #### [facility] [address] [place], [address] MCHC (RBC) [Mass/Vol] 31.3 g/dL Low 32-36 [facility] Comment on above: Performed By: #### L [id number] #### [facility] [address] [place], [address] MCV (RBC) [Entitic vol] 97.9 fL Normal 81-99 [facility] Comment on above: Performed By: #### L [id number] #### [facility] [address] [place], [address] Monocytes/100 WBC (Bld) 16.2 % High 0-10 [facility] Comment on above: Performed By: #### L [id number] #### [facility] [address] [place], [address] Neutrophils/100 WBC (Bld) 50.2 % Normal 47-70 [facility] Comment on above: Performed By: #### L [id number] #### [facility] [address] [place], [address] Nucleated RBC (Bld) [#/Vol] 0 10*3/uL Normal 0-5 [facility] Comment on above: Performed By: #### L [id number] #### [facility] [address] [place], [address] Platelet mean volume (Bld) [Entitic vol] 11.7 fL Normal 6.2-12.0 [facility] Comment on above: Performed By: #### L [id number] #### [facility] [address] [place], [address] Platelets (Bld) [#/Vol] 156 10*3/uL Normal 150-450 [facility] Comment on above: Performed By: #### L [id number] #### [facility] [address] [place], [address] RBC (Bld) [#/Vol] 3.75 10*6/uL Low 4.2-5.4 [facility] Comment on above: Performed By: #### L [id number] #### [facility] [address] [place], [address] RDW SD 48.6 fl High 35.1-43.9 [facility] Comment on above: Performed By: #### L [id number] #### [facility] [address] [place], [address] WBC (Bld) [#/Vol] 4.7 10*3/uL Normal 4.4-11.0 [facility] Comment on above: Performed By: #### L [id number] #### [facility] [address] [place], [place], [address] Basophil percentageOrdered B y: Ifrah Baker on 11-05-2023 Bilirubin [Mass/Vol] 0.60 mg/dL 0.20-1.00 [facility] Comment on above: For patients on eltr ombopag therapy, use of Dimension [place] TBIL is not recommended. Chloride [Moles/Vol] 110 mmol/L 98-107 [facility] Cholesterol [Mass/Vol] 122 mg/dL <200 [facility] Comment on above: <200 mg/dL Desirable 200-240 mg/dL Borderline >240 mg/dL High Risk Glucose [Mass/Vol] 88 mg/dL 74-106 [facility] Hemoglobin (Bld) [Mass/Vol] 11.7 g/dL 12.0-15.0 [facility] Potassium [Moles/Vol] 4.4 mmol/L 3.5-5.1 [facility] Protein [Mass/Vol] 6.3 g/dL 6.4-8.2 [facility] Sodium [Moles/Vol] 143 mmol/L 136-145 [facility] Triglyceride [Mass/Vol] 60 mg/dL <199 [facility] Comment on above: The drugs N-Acetylcy steine and Metamizole may falsely depress this assay.Serum Triglycerides Reference Interval Normal <150 mg/dL Borderline high 150 - 199 mg/dL High 200 - 499 mg/dL Very High > or = 500 mg/dL WBC (Bld) [#/Vol] 4.6 10*3/uL 4.4-11.0 [facility] Determination of erythrocyte mean corpuscular volume (MCV)Ordered By: Ifrah Baker on 11-05-2023 MCV (RBC) [Entitic vol] 98.7 fL 81-99 [facility] Erythrocyte distribution wid th ratioOrdered By: [facility]-05-[facility]23 Erythrocyte distribution width (RBC) [Ratio] 13.1 % 11.6-14.6 [facility] Erythrocyte distribution wid th standard deviationOrdered By: [facility] Samuel on 11-05-2023 Erythrocyte distribution width (RBC) [Entitic vol] 47.3 fL 35.1-43.9 [facility] Hematocrit Auto (Bld) [Volum e fraction]Ordered By: Ifrahmiles Baker on 11-05-2023 Hematocrit (Bld) [Volume fraction] 37.7 % 37-47 [facility] - Chemistry and C hemistry - challengeOrdered By: Ifrah Baker on 11-05-2023 Albumin/Globulin [Mass ratio] 1.1 {ratio} 0.9-2.4 [facility] ALP [Catalytic activity/Vol] 113 U/L 45-117 [facility] ALT [Catalytic activity/Vol] 24 U/L 13-56 [facility] Cholesterol in HDL [Mass/Vol] 54 mg/dL >40 [facility] Comment on above: The drugs N-Acetylcy steine and Metamizole may falsely depress this assay. Reference Range HDL <40 mg/dL Low HDL Cholesterol HDL >or= 60 mg/dL High HDL Cholesterol Cholesterol in LDL [Mass/Vol] 56 mg/dL 0-130 [facility] CO2 [Moles/Vol] 24.0 mmol/L 21.0-32.0 [facility] Globulin (S) [Mass/Vol] 3.0 g/dL 2.2-4.2 [facility] Urea nitrogen/Creatinine [Mass ratio] 25.2 mg/mg 10-20 [facility] - Hematology and Cell countsOrdered By: Ifrah Baker on 11-05-2023 MCH (RBC) [Entitic mass] 30.6 pg 27.0-32.0 [facility] MCHC (RBC) [Mass/Vol] 31.0 g/dL 32-36 [facility] Platelet mean volume (Bld) [Entitic vol] 11.2 fL 6.2-12.0 [facility] Platelets (Bld) [#/Vol] 181 10*3/uL 150-450 [facility] No Panel InformationOrdered By: Ifrah Baker on 11-05-2023 Estimated GFR (MDRD) Amer 58 mL/min >60 [facility] Comment on above: GFR Calc Estimated GFR (MDRD) Non-Af Amer 48 mL/min >60 [facility] Comment on above: Non- GFR Calc Vitamin D 25-Hydroxy 43.3 ng/mL [facility] Comment on above: Vitamin D 25(OH) Sta tus Range Deficiency <20 ng/mL (50nmol/L) Insufficiency 20 - 30 ng/mL (50 - 75 nmol/L) Sufficiency 30 - 100 ng/mL (75 - 250 nmol/L) Toxicity >100 ng/mL (>250 nmol/L) VLDL Cholesterol 12 mg/dL 5-40 [facility] RBC Auto (Bld) [#/Vol]Ordere d By: Ifrah Baker on 11-05-2023 RBC (Bld) [#/Vol] 3.82 10*6/uL 4.2-5.4 [facility] Serum or plasma calcium enrique urement (mass/volume)Ordered By: Ifrah Baker on 11-05-2023 Calcium [Mass/Vol] 8.8 mg/dL 8.5-10.1 [facility] Serum or plasma creatinine m easurement (mass/volume)Ordered By: Ifrah Baker on 11-05-2023 Creatinine [Mass/Vol] 1.15 mg/dL 0.55-1.02 [facility] Comment on above: The validity of the calculated GFR & GFRAA in patients over 70 years has not been determined. Clinical correlation is essential. Serum or plasma thyroid stim ulating hormone (TSH) measurement (units/volume)Ordered By: Ifrah Baker on 11-05-2023 TSH Qn 3.71 uIU/mL 0.358-3.74 [facility] Serum or plasma urea nitroge n measurement (mass/volume)Ordered By: Ifrah Baker on 11-05-2023 Urea nitrogen [Mass/Vol] 29 mg/dL 7-18 [facility] Thin prep Papanicolaou smear with manual screeningOrdered By: [facility] Samuel on 11-05-2023 Thin prep Papanicolaou smear with manual screening 3.3 g/dL 3.2-5.0 [facility] Thin prep Papanicolaou smear with manual screening 19 U/L 15-37 [facility] Thin prep Papanicolaou smear with manual screening 9 5-15 [facility] Whole blood hemoglobin A1c/t otal hemoglobin ratio (mass fraction)Ordered By: Ifrahmiles Baker on 11-05-2023 HbA1c (Bld) [Mass fraction] 5.5 % 3.8-5.6 [facility] Comment on above: Normal < 5.7 % Predi abetic 5.7 - 6.4 % Diabetic >or= 6.5 % Please note range changes. Serum or plasma uric acid me asurement (mass/volume)Ordered By: Ifrah Baker on 06-20-2023 Urate [Mass/Vol] 5.3 mg/dL 2.6-6.0 [facility] Comment on above: The drugs N-Acetylcy steine and Metamizole may falsely depress this assay. Absolute lymphocyte countOrd ered By: Edwin Nath on 05-29-2023 Lymphocytes Auto (Unsp spec) [#/Vol] 1.25 10*3/uL 0.83-4.51 [facility] Basophil percentageOrdered B y: Edwin Nath on 05-29-2023 Basophils/100 WBC (Bld) 0.7 % 0-1 [facility] Chloride [Moles/Vol] 108 mmol/L 98-107 [facility] Eosinophils/100 WBC (Bld) 4.2 % 0-5 [facility] Glucose [Mass/Vol] 102 mg/dL 74-106 [facility] Comment on above: Fasting Glucose resu lt from 100 to 125 mg/dL suggests IMPAIRED HOMEOSTASIS per A.D.A. criteria. Neutrophils (Bld) [#/Vol] 3.6 10*3/uL 2.0-7.7 [facility] Neutrophils/100 WBC (Bld) 62.6 % 47-70 [facility] Potassium [Moles/Vol] 4.2 mmol/L 3.5-5.1 [facility] Sodium [Moles/Vol] 140 mmol/L 136-145 [facility] WBC (Bld) [#/Vol] 5.8 10*3/uL 4.4-11.0 [facility] Blood erythrocytes count (nu mber/volume)Ordered By: Edwin Nath on 05-29-2023 RBC (Bld) [#/Vol] 4.05 10*6/uL 4.2-5.4 [facility] Blood hemoglobin measurement (mass/volume)Ordered By: Edwin Nath on 05-29-2023 Hemoglobin (Bld) [Mass/Vol] 12.4 g/dL 12.0-15.0 [facility] Blood lymphocytes/100 leukoc ytesOrdered By: Edwin Nath on 05-29-2023 Lymphocytes/100 WBC (Bld) 21.7 % 19-41 [facility] Blood monocytes/100 leukocyt esOrdered By: Edwin Nath on 05-29-2023 Monocytes/100 WBC (Bld) 10.6 % 0-10 [facility] Blood platelet mean volumeOr dered By: Edwin Naht on 05-29-2023 Platelet mean volume (Bld) [Entitic vol] 10.6 fL 6.2-12.0 [facility] Determination of erythrocyte mean corpuscular volume (MCV)Ordered By: Edwin Nath on 05-29-2023 MCV (RBC) [Entitic vol] 96.3 fL 81-99 [facility] Hematocrit Auto (Bld) [Volum e fraction]Ordered By: Edwin Nath on 05-29-2023 Hematocrit (Bld) [Volume fraction] 39.0 % 37-47 [facility] - Chemistry and C hemistry - challengeOrdered By: Edwin Nath on 05-29-2023 CO2 [Moles/Vol] 29.0 mmol/L 21.0-32.0 [facility] Urea nitrogen/Creatinine [Mass ratio] 28.0 mg/mg 10-20 [facility] - Hematology and Cell countsOrdered By: Edwin Nath on 05-29-2023 Erythrocyte distribution width (RBC) [Entitic vol] 47.4 fL 35.1-43.9 [facility] Erythrocyte distribution width (RBC) [Ratio] 13.2 % 11.6-14.6 [facility] Immature granulocytes/100 WBC (Bld) 0.200 % 0.0-0.9 [facility] Comment on above: IG% - Immature Granu locytes (promyelocytes, myelocytes and metamyelocytes) > 1% indicates that a LEFT SHIFT is Present. MCH (RBC) [Entitic mass] 30.6 pg 27.0-32.0 [facility] Nucleated RBC/100 WBC (Bld) [Ratio] 0 % 0-5 [facility] MCHC Auto (RBC) [Mass/Vol]Or dered By: Edwin Nath on 05-29-2023 MCHC (RBC) [Mass/Vol] 31.8 g/dL 32-36 [facility] No Panel InformationOrdered By: Edwin Nath on 05-29-2023 Estimated Creatinine Clearance Calc 37.09 ml/min [facility] Estimated GFR (MDRD) Amer 56 mL/min >60 [facility] Comment on above: GFR Calc Estimated GFR (MDRD) Non-Af Amer 46 mL/min >60 [facility] Comment on above: Non- GFR Calc Platelets bldOrdered By: Trent Nath on 05-29-2023 Platelets (Bld) [#/Vol] 205 10*3/uL 150-450 [facility] Serum or plasma calcium enrique urement (mass/volume)Ordered By: Edwin Nath on 05-29-2023 Calcium [Mass/Vol] 8.6 mg/dL 8.5-10.1 [facility] Serum or plasma creatinine m easurement (mass/volume)Ordered By: Edwin Nath on 05-29-2023 Creatinine [Mass/Vol] 1.18 mg/dL 0.55-1.02 [facility] Comment on above: The validity of the calculated GFR & GFRAA in patients over 70 years has not been determined. Clinical correlation is essential. Serum or plasma urea nitroge n measurement (mass/volume)Ordered By: Edwin Nath on 05-29-2023 Urea nitrogen [Mass/Vol] 33 mg/dL 7-18 [facility] Thin prep Papanicolaou smear with manual screeningOrdered By: Edwin Nath on 05-29-2023 Thin prep Papanicolaou smear with manual screening 3 5-15 [facility] Absolute lymphocyte countOrd ered By: Dominguez Albert on 03-01-2023 Lymphocytes Auto (Unsp spec) [#/Vol] 1.28 10*3/uL 0.83-4.51 [facility] Basophil percentageOrdered B y: Dominguez Albert on 03-01-2023 Potassium [Moles/Vol] 4.2 mmol/L 3.5-5.1 [facility] Basophils/100 WBC (Bld) 0.5 % 0-1 [facility] Chloride [Moles/Vol] 109 mmol/L 98-107 [facility] Eosinophils/100 WBC (Bld) 5.3 % 0-5 [facility] Glucose [Mass/Vol] 96 mg/dL 74-106 [facility] Neutrophils (Bld) [#/Vol] 3.8 10*3/uL 2.0-7.7 [facility] Neutrophils/100 WBC (Bld) 61.5 % 47-70 [facility] Sodium [Moles/Vol] 140 mmol/L 136-145 [facility] WBC (Bld) [#/Vol] 6.2 10*3/uL 4.4-11.0 [facility] Blood erythrocytes count (nu mber/volume)Ordered By: Dominguez Albert on 03-01-2023 RBC (Bld) [#/Vol] 3.54 10*6/uL 4.2-5.4 [facility] Blood hemoglobin measurement (mass/volume)Ordered By: Dominguez Albert on 03-01-2023 Hemoglobin (Bld) [Mass/Vol] 11.2 g/dL 12.0-15.0 [facility] Blood lymphocytes/100 leukoc ytesOrdered By: Dominguez Albert on 03-01-2023 Lymphocytes/100 WBC (Bld) 20.6 % 19-41 [facility] Blood monocytes/100 leukocyt esOrdered By: Dominguez Albert on 03-01-2023 Monocytes/100 WBC (Bld) 11.6 % 0-10 [facility] Blood platelet mean volumeOr dered By: Dominguez Albert on 03-01-2023 Platelet mean volume (Bld) [Entitic vol] 11.1 fL 6.2-12.0 [facility] Determination of erythrocyte mean corpuscular volume (MCV)Ordered By: Dominguez Albert on 03-01-2023 MCV (RBC) [Entitic vol] 102.8 fL 81-99 [facility] Hematocrit Auto (Bld) [Volum e fraction]Ordered By: Dominguez Albert on 03-01-2023 Hematocrit (Bld) [Volume fraction] 36.4 % 37-47 [facility] - Chemistry and C hemistry - challengeOrdered By: Dominguez Albert on 03-01-2023 CO2 [Moles/Vol] 27.0 mmol/L 21.0-32.0 [facility] Urea nitrogen/Creatinine [Mass ratio] 29.5 mg/mg 10-20 [facility] - Hematology and Cell countsOrdered By: Dominguez Albert on 03-01-2023 Erythrocyte distribution width (RBC) [Entitic vol] 47.9 fL 35.1-43.9 [facility] Erythrocyte distribution width (RBC) [Ratio] 12.5 % 11.6-14.6 [facility] Immature granulocytes/100 WBC (Bld) 0.500 % 0.0-0.9 [facility] Comment on above: IG% - Immature Granu locytes (promyelocytes, myelocytes and metamyelocytes) > 1% indicates that a LEFT SHIFT is Present. MCH (RBC) [Entitic mass] 31.6 pg 27.0-32.0 [facility] Nucleated RBC/100 WBC (Bld) [Ratio] 0 % 0-5 [facility] MCHC Auto (RBC) [Mass/Vol]Or dered By: Dominguez Albert on 03-01-2023 MCHC (RBC) [Mass/Vol] 30.8 g/dL 32-36 [facility] No Panel InformationOrdered By: Dominguez Albert on 03-01-2023 Troponin I High Sensitivity 5 pg/mL 3.0-54.0 [facility] Comment on above: Please Note: [place] Units and Gender Specific Reference Ranges. For more information see Policy Stat Procedure [place] High Sensitivity Troponin (TNIH) and attachments. D-Dimer Quantitative (PE/DVT) 0.97 FEU/ug/m 0.27-0.49 [facility] Comment on above: CRITICAL VALUE VERIF IED. CALLED TO ANTHONY SO RN [id number] Enio Arvizu.RESULTS READ BACK BY SAME . D-Dimer ELEVATED (>0.49): Additional studies and clinicalassessments are indicated to conclude diagnosis of:Deep Vein Thrombosis (DVT) or Pulmonary Embolism (PE) Estimated Creatinine Clearance Calc 33.93 ml/min [facility] Estimated GFR (MDRD) Amer 51 mL/min >60 [facility] Comment on above: GFR Calc Estimated GFR (MDRD) Non-Af Amer 42 mL/min >60 [facility] Comment on above: Non- GFR Calc Platelets bldOrdered By: Goran Albert on 03-01-2023 Platelets (Bld) [#/Vol] 163 10*3/uL 150-450 [facility] Serum or plasma calcium enrique urement (mass/volume)Ordered By: Dominguez Albert on 03-01-2023 Calcium [Mass/Vol] 8.8 mg/dL 8.5-10.1 [facility] Serum or plasma creatinine m easurement (mass/volume)Ordered By: Dominguez Albert on 03-01-2023 Creatinine [Mass/Vol] 1.29 mg/dL 0.55-1.02 [facility] Comment on above: The validity of the calculated GFR & GFRAA in patients over 70 years has not been determined. Clinical correlation is essential. Serum or plasma urea nitroge n measurement (mass/volume)Ordered By: Dominguez Albert on 03-01-2023 Urea nitrogen [Mass/Vol] 38 mg/dL 7-18 [facility] Thin prep Papanicolaou smear with manual screeningOrdered By: Dominguez Albert on 03-01-2023 Thin prep Papanicolaou smear with manual screening 4 5-15 [facility] Absolute lymphocyte countOrd ered By: Ifrah Baker on 01-01-2023 Lymphocytes Auto (Unsp spec) [#/Vol] 1.07 10*3/uL 0.83-4.51 [facility] Basophil percentageOrdered B y: Ifrah Baker on 01-01-2023 Basophils/100 WBC (Bld) 0.4 % 0-1 [facility] Chloride [Moles/Vol] 111 mmol/L 98-107 [facility] Eosinophils/100 WBC (Bld) 6.8 % 0-5 [facility] Glucose [Mass/Vol] 77 mg/dL 74-106 [facility] Neutrophils (Bld) [#/Vol] 4.8 10*3/uL 2.0-7.7 [facility] Neutrophils/100 WBC (Bld) 69.2 % 47-70 [facility] Potassium [Moles/Vol] 4.6 mmol/L 3.5-5.1 [facility] Sodium [Moles/Vol] 143 mmol/L 136-145 [facility] WBC (Bld) [#/Vol] 6.9 10*3/uL 4.4-11.0 [facility] Blood erythrocytes count (nu mber/volume)Ordered By: Ifrah Baker on 01-01-2023 RBC (Bld) [#/Vol] 3.55 10*6/uL 4.2-5.4 [facility] Blood hemoglobin measurement (mass/volume)Ordered By: Ifrah Baker on 01-01-2023 Hemoglobin (Bld) [Mass/Vol] 11.2 g/dL 12.0-15.0 [facility] Blood lymphocytes/100 leukoc ytesOrdered By: Ifrah Baker on 01-01-2023 Lymphocytes/100 WBC (Bld) 15.4 % 19-41 [facility] Blood monocytes/100 leukocyt esOrdered By: Ifrah Baker on 01-01-2023 Monocytes/100 WBC (Bld) 7.9 % 0-10 [facility] Blood platelet mean volumeOr dered By: Ifrah Baker on 01-01-2023 Platelet mean volume (Bld) [Entitic vol] 11.3 fL 6.2-12.0 [facility] Determination of erythrocyte mean corpuscular volume (MCV)Ordered By: Ifrah Baker on 01-01-2023 MCV (RBC) [Entitic vol] 98.9 fL 81-99 [facility] Hematocrit Auto (Bld) [Volum e fraction]Ordered By: Ifrah Baker on 01-01-2023 Hematocrit (Bld) [Volume fraction] 35.1 % 37-47 [facility] - Chemistry and C hemistry - challengeOrdered By: Ifrah Baker on 01-01-2023 CO2 [Moles/Vol] 25.0 mmol/L 21.0-32.0 [facility] Urea nitrogen/Creatinine [Mass ratio] 29.5 mg/mg 10-20 [facility] - Hematology and Cell countsOrdered By: Ifrah Baker on 01-01-2023 Erythrocyte distribution width (RBC) [Entitic vol] 50.4 fL 35.1-43.9 [facility] Erythrocyte distribution width (RBC) [Ratio] 13.8 % 11.6-14.6 [facility] Immature granulocytes/100 WBC (Bld) 0.300 % 0.0-0.9 [facility] Comment on above: IG% - Immature Granu locytes (promyelocytes, myelocytes and metamyelocytes) > 1% indicates that a LEFT SHIFT is Present. MCH (RBC) [Entitic mass] 31.5 pg 27.0-32.0 [facility] Nucleated RBC/100 WBC (Bld) [Ratio] 0 % 0-5 [facility] MCHC Auto (RBC) [Mass/Vol]Or dered By: Ifrah Baker on 01-01-2023 MCHC (RBC) [Mass/Vol] 31.9 g/dL 32-36 [facility] No Panel InformationOrdered By: Ifrah Baker on 01-01-2023 Estimated GFR (MDRD) Amer 64 mL/min >60 [facility] Comment on above: GFR Calc Estimated GFR (MDRD) Non-Af Amer 53 mL/min >60 [facility] Comment on above: Non- GFR Calc Platelets bldOrdered By: Brandy Baker on 01-01-2023 Platelets (Bld) [#/Vol] 205 10*3/uL 150-450 [facility] Serum or plasma calcium enrique urement (mass/volume)Ordered By: Ifrah Baker on 01-01-2023 Calcium [Mass/Vol] 9.0 mg/dL 8.5-10.1 [facility] Serum or plasma creatinine m easurement (mass/volume)Ordered By: Ifrah Baker on 01-01-2023 Creatinine [Mass/Vol] 1.05 mg/dL 0.55-1.02 [facility] Comment on above: The validity of the calculated GFR & GFRAA in patients over 70 years has not been determined. Clinical correlation is essential. Serum or plasma urea nitroge n measurement (mass/volume)Ordered By: Ifrah Baker on 01-01-2023 Urea nitrogen [Mass/Vol] 31 mg/dL 7-18 [facility] Thin prep Papanicolaou smear with manual screeningOrdered By: Ifrah Baker on 01-01-2023 Thin prep Papanicolaou smear with manual screening 7 5-15 [facility] CNPNon 10-09-2022 CNPN Telephone (MARIWS) LETTY LEON ([id number]) 1940 F Date Time Provider Department 10/09/22 KERI EL During your visit today, we recorded the following information about you: FAN Osborn 10/09/2022 2:04 PM Signed Patient's son was calling in to see if had filled out paperwork for patient to be admitted to [facility]. The usp was supposed to fax over paperwork to [...] (Right) [C50.419] 08/03/2005 02/22/2009 SEROMA, POST OP [[id number]] 09/19/2005 02/22/2009 Essential hypertension [I10] 07/23/2006 Syncope [...] Status:Closed by TANYA ROJAS MA on 10/10/[address] [facility] CNPNon 10-05-2022 CNPN Telephone (FAMPWS) LETTY LEON ([id number]) 1940 F Date Time Provider Department 10/05/22 GAVINO MELENDEZ During your visit today, we recorded the following information about you: Tanya Rojas Ma 10/05/2022 4:54 PM Signed Type of letter/form/fax request - [facility] Admissions Form Form received from fax on 1 floor and placed on MD desk (Dr. Melendez) for completion. Completed form needs to be faxed to [facility]. Route to [place] when form completed for processing Gavino Melendez MD 10/05/2022 5:35 PM Signed Form done; may send with last note, med list MD Emelia Fraser Ma 10/06/2022 8:29 AM Signed Last OV note printed and paperwork completed. This has been faxed to [phone]. Emelia Rodriguez Ma Allergies As of Date: 10/05/2022 Noted Allergy Reaction AMOXICILLIN 06/27/2005 4 - Hives DURICEF (CEFADROXIL) 06/27/2005 4 - Hives FLOXIN (OFLOXACIN) 06/27/2005 4 - Hives GRASS POLLEN 06/27/2005 PINE NEEDLE OIL 06/27/2005 Date Reviewed: 09/07/2022 Reviewed by: Emelia Rodriguez Ma - Fully Assessed Reason for Visit: Forms [673] Cmt: senior living admissions form for [facility] Prescriptions as of 10/06/2022 - [employer]PIRone (BUSPAR) [...] (Right) [C50.419] 08/03/2005 02/22/2009 SEROMA, POST OP [[id number]] 09/19/2005 02/22/2009 Essential hypertension [I10] 07/23/2006 Syncope [...] stage 3a chron*11/24/2021 Encounter Status:Closed by EMELIA RODRIGEUZ MA on 10/06/[address] [facility] Itzel 10-04-2022 [place] Telephone (FAMPWS) LETTY LEON ([id number]) 1940 F Date Time Provider Department 10/04/22 GAVINO MELENDEZ During your visit today, we recorded the following information about you: Anahi Moran RN 10/04/2022 10:13 AM Signed Patient's son calls and states that patient has been approved for medicaid. They have until 10/13/2022 to have her placed in a usp. Son states that he had taken patient to [facility] ER to help get patient in the usp per recommendations from [facility]. [facility] told son that he needed to contact PCP to get patient placed in [facility]. Patient is requiring more help then family can give. Patient is getting more confused. Son asking if provider can help patient get into [facility]? Please give son a call back. Please review and advise, ROMA Swanson MD 10/05/2022 8:39 AM Signed I can give him an order for admission to [facility]; he may need to contact the [facility]p and have them send the required paperwork here. MD Tanya Fraser Ma 10/05/2022 10:47 AM Signed Nima notified. He will contact usp and have them send over paperwork. Tanya Rojas Ma Allergies As of Date: 10/04/2022 Noted Allergy Reaction AMOXICILLIN 06/27/2005 4 - Hives DURICEF (CEFADROXIL) 06/27/2005 4 - Hives FLOXIN (OFLOXACIN) 06/27/2005 4 - Hives GRASS POLLEN 06/27/2005 PINE NEEDLE OIL 06/27/2005 Date Reviewed: 09/07/2022 Reviewed by: Emelia Rodriguez Ma - Fully Assessed Reason for Visit: Fdc Placement [Other] Prescriptions as of 10/05/2022 - [...] (Right) [C50.419] 08/03/2005 02/22/2009 SEROMA, POST OP [[id number]] 09/19/2005 02/22/2009 Essential hypertension [I10] 07/23/2006 Syncope [...] Status:Closed by TANYA ROJAS MA on 10/05/22 [facility]20[facility] LETTY LEON ([id number]) 1940 F Date Time Provider Department 09/29/22 GAVINO MELENDEZ [facility] During your visit today, we recorded the [...] 10/02/2022 10:05 AM Signed Call to pt sonNima and notified him of below. He is heading to Pharmacy now and will pharmacy picking technician. May have cleared up, but is picking [...] (Right) [C50.419] 08/03/2005 02/22/2009 SEROMA, POST OP [[id number]] 09/19/2005 02/22/2009 Essential hypertension [I10] 07/23/2006 Syncope [...] Status:Closed by EMELIA RODRIGUEZ MA on 10/02/[address] [facility] CNOVon 09-07-2022 CNOV Office Visit (FAMPWS ) LETTY LEON ([id number]) 1940 F Date Time Provider Department 09/07/22 2:20 PM GAVINO MELENDEZ During your visit today, we recorded the following information about you: Pulse Respiration Blood pressure 60/minute 16/minute 94/62 Gavino Melendez MD 09/07/2022 2:56 PM Signed Chief Complaint Patient presents with: Hospital F/U: Fdc follow up. HPI Letty Leon is a 82 year old female who presents here today for a Fdc follow up. Pt here today with her son for a [place] discharge. Pt was admitted into [facility] due to UTI, low BP, Dementia and recurrent falls. Pt was admitted from 08/14/22 and was stable for discharge to SNF on 08/16/22. Pt recently discharged from [facility] on 09/03/22. Nima unsure what the patient [...] hospital bed and faxing it over to [facility].. Past medical history, appointments, medications, allergies reviewed. [...] [Cefadroxil] Hives Floxin [Ofloxacin] Hives Grass Pollen [place] [employer] Current Medications Current Outpatient Medications [...] mcg (1 (more content not included)... Normal [facility] Best Basophil percentageOrdered B y: Nima Grover on 08-31-2022 Chloride [Moles/Vol] 109 mmol/L 98-107 [facility] Glucose [Mass/Vol] 97 mg/dL 74-106 [facility] Potassium [Moles/Vol] 4.8 mmol/L 3.5-5.1 [facility] Sodium [Moles/Vol] 142 mmol/L 136-145 [facility] WBC (Bld) [#/Vol] 5.0 10*3/uL 4.4-11.0 [facility] Blood erythrocytes count (nu mber/volume)Ordered By: Nima Grover on 08-31-2022 RBC (Bld) [#/Vol] 3.82 10*6/uL 4.2-5.4 [facility] Blood hemoglobin measurement (mass/volume)Ordered By: Nima Grover on 08-31-2022 Hemoglobin (Bld) [Mass/Vol] 11.8 g/dL 12.0-15.0 [facility] Blood platelet mean volumeOr dered By: Nima Grover on 08-31-2022 Platelet mean volume (Bld) [Entitic vol] 11.7 fL 6.2-12.0 [facility] Determination of erythrocyte mean corpuscular volume (MCV)Ordered By: Nima Grover on 08-31-2022 MCV (RBC) [Entitic vol] 98.4 fL 81-99 [facility] Hematocrit Auto (Bld) [Volum e fraction]Ordered By: Nima Grover on 08-31-2022 Hematocrit (Bld) [Volume fraction] 37.6 % 37-47 [facility] - Chemistry and C hemistry - challengeOrdered By: Nima Grover on 08-31-2022 CO2 [Moles/Vol] 28.0 mmol/L 21.0-32.0 [facility] Urea nitrogen/Creatinine [Mass ratio] 37.7 mg/mg 10-20 [facility] - Hematology and Cell countsOrdered By: Nima Grover on 08-31-2022 Erythrocyte distribution width (RBC) [Entitic vol] 46.1 fL 35.1-43.9 [facility] Erythrocyte distribution width (RBC) [Ratio] 12.8 % 11.6-14.6 [facility] MCH (RBC) [Entitic mass] 30.9 pg 27.0-32.0 [facility] MCHC Auto (RBC) [Mass/Vol]Or dered By: Nima Grover on 08-31-2022 MCHC (RBC) [Mass/Vol] 31.4 g/dL 32-36 [facility] No Panel InformationOrdered By: Nima Grover on 08-31-2022 Estimated GFR (MDRD) Amer 70 mL/min >60 [facility] Comment on above: GFR Calc Estimated GFR (MDRD) Non-Af Amer 58 mL/min >60 [facility] Comment on above: Non- GFR Calc Platelets bldOrdered By: Imani Grover on 08-31-2022 Platelets (Bld) [#/Vol] 191 10*3/uL 150-450 [facility] Serum or plasma calcium enrique urement (mass/volume)Ordered By: Nima Grover on 08-31-2022 Calcium [Mass/Vol] 8.6 mg/dL 8.5-10.1 [facility] Serum or plasma creatinine m easurement (mass/volume)Ordered By: Nima Grover on 08-31-2022 Creatinine [Mass/Vol] 0.98 mg/dL 0.55-1.02 [facility] Comment on above: The validity of the calculated GFR & GFRAA in patients over 70 years has not been determined. Clinical correlation is essential. Serum or plasma urea nitroge n measurement (mass/volume)Ordered By: Nima Grover on 08-31-2022 Urea nitrogen [Mass/Vol] 37 mg/dL 7-18 [facility] Thin prep Papanicolaou smear with manual screeningOrdered By: Nima Grover on 08-31-2022 Thin prep Papanicolaou smear with manual screening 5 5-15 [facility] Basophil percentageOrdered B y: Nima Grover on 08-24-2022 Chloride [Moles/Vol] 110 mmol/L 98-107 [facility] Glucose [Mass/Vol] 83 mg/dL 74-106 [facility] Potassium [Moles/Vol] 5.0 mmol/L 3.5-5.1 [facility] Sodium [Moles/Vol] 141 mmol/L 136-145 [facility] WBC (Bld) [#/Vol] 5.0 10*3/uL 4.4-11.0 [facility] Blood erythrocytes count (nu mber/volume)Ordered By: Nima Grover on 08-24-2022 RBC (Bld) [#/Vol] 3.82 10*6/uL 4.2-5.4 [facility] Blood hemoglobin measurement (mass/volume)Ordered By: Nima Grover on 08-24-2022 Hemoglobin (Bld) [Mass/Vol] 12.1 g/dL 12.0-15.0 [facility] Blood platelet mean volumeOr dered By: Nima Grover on 08-24-2022 Platelet mean volume (Bld) [Entitic vol] 11.1 fL 6.2-12.0 [facility] Determination of erythrocyte mean corpuscular volume (MCV)Ordered By: Nima Grover on 08-24-2022 MCV (RBC) [Entitic vol] 99.0 fL 81-99 [facility] Hematocrit Auto (Bld) [Volum e fraction]Ordered By: Nima Grover on 08-24-2022 Hematocrit (Bld) [Volume fraction] 37.8 % 37-47 [facility] - Chemistry and C hemistry - challengeOrdered By: Nima Grover on 08-24-2022 CO2 [Moles/Vol] 27.0 mmol/L 21.0-32.0 [facility] Urea nitrogen/Creatinine [Mass ratio] 21.4 mg/mg 10-20 [facility] - Hematology and Cell countsOrdered By: Nima Grover on 08-24-2022 Erythrocyte distribution width (RBC) [Entitic vol] 47.1 fL 35.1-43.9 [facility] Erythrocyte distribution width (RBC) [Ratio] 12.9 % 11.6-14.6 [facility] MCH (RBC) [Entitic mass] 31.7 pg 27.0-32.0 [facility] MCHC Auto (RBC) [Mass/Vol]Or dered By: Nima Grover on 08-24-2022 MCHC (RBC) [Mass/Vol] 32.0 g/dL 32-36 [facility] No Panel InformationOrdered By: Nima Grover on 08-24-2022 Estimated GFR (MDRD) Amer 66 mL/min >60 [facility] Comment on above: GFR Calc Estimated GFR (MDRD) Non-Af Amer 54 mL/min >60 [facility] Comment on above: Non- GFR Calc Platelets bldOrdered By: Imani Grover on 08-24-2022 Platelets (Bld) [#/Vol] 219 10*3/uL 150-450 [facility] Serum or plasma calcium enrique urement (mass/volume)Ordered By: Nima Grover on 08-24-2022 Calcium [Mass/Vol] 8.6 mg/dL 8.5-10.1 [facility] Serum or plasma creatinine m easurement (mass/volume)Ordered By: Nima Grover on 08-24-2022 Creatinine [Mass/Vol] 1.03 mg/dL 0.55-1.02 [facility] Comment on above: The validity of the calculated GFR & GFRAA in patients over 70 years has not been determined. Clinical correlation is essential. Serum or plasma urea nitroge n measurement (mass/volume)Ordered By: Nima Grover on 08-24-2022 Urea nitrogen [Mass/Vol] 22 mg/dL 7-18 [facility] Thin prep Papanicolaou smear with manual screeningOrdered By: Nima Grover on 08-24-2022 Thin prep Papanicolaou smear with manual screening 4 5-15 [facility] Basophil percentageOrdered B y: Nima Grover on 08-22-2022 Cholesterol [Mass/Vol] 111 mg/dL <200 [facility] Comment on above: <200 mg/dL Desirable 200-240 mg/dL Borderline >240 mg/dL High Risk Triglyceride [Mass/Vol] 62 mg/dL <199 [facility] Comment on above: The drugs N-Acetylcy steine and Metamizole may falsely depress this assay.Serum Triglycerides Reference Interval Normal <150 mg/dL Borderline high 150 - 199 mg/dL High 200 - 499 mg/dL Very High > or = 500 mg/dL No Panel InformationOrdered By: Nima Grover on 08-22-2022 Thyroid Stimulating Hormone (TSH) 0.34 uIU/mL 0.358-3.74 [facility] Vitamin D 25-Hydroxy 54.3 ng/mL [facility] Comment on above: Vitamin D 25(OH) Sta tus Range Deficiency <20 ng/mL (50nmol/L) Insufficiency 20 - 30 ng/mL (50 - 75 nmol/L) Sufficiency 30 - 100 ng/mL (75 - 250 nmol/L) Toxicity >100 ng/mL (>250 nmol/L) Serum or plasma cholesterol in HDL measurement (mass/volume)Ordered By: Nima Grover on 08-22-2022 Cholesterol in HDL [Mass/Vol] 43 mg/dL >40 [facility] Comment on above: The drugs N-Acetylcy steine and Metamizole may falsely depress this assay. Reference Range HDL <40 mg/dL Low HDL Cholesterol HDL >or= 60 mg/dL High HDL Cholesterol Serum or plasma cholesterol in VLDL measurement (mass/volume)Ordered By: Nima Grover on 08-22-2022 Cholesterol in VLDL [Mass/Vol] 12 mg/dL 5-40 [facility] Serum or plasma low density lipoprotein (LDL) cholesterol measurement (mass/volume)Ordered By: Nima Grover on 08-22-2022 Cholesterol in LDL [Mass/Vol] 56 mg/dL 0-130 [facility] - Microbiology an d Antimicrobial susceptibilityOrdered By: Dr. Rojas on 08-20-2022 Bacteria identified Cx Nom (Bld) No growth in 5 days. [facility] Basophil percentageOrdered B y: Nima Grover on 08-17-2022 Chloride [Moles/Vol] 113 mmol/L 98-107 [facility] Glucose [Mass/Vol] 97 mg/dL 74-106 [facility] Potassium [Moles/Vol] 4.2 mmol/L 3.5-5.1 [facility] Sodium [Moles/Vol] 144 mmol/L 136-145 [facility] WBC (Bld) [#/Vol] 4.4 10*3/uL 4.4-11.0 [facility] Blood erythrocytes count (nu mber/volume)Ordered By: Nima Grover on 08-17-2022 RBC (Bld) [#/Vol] 3.69 10*6/uL 4.2-5.4 [facility] Blood hemoglobin measurement (mass/volume)Ordered By: Nima Grover on 08-17-2022 Hemoglobin (Bld) [Mass/Vol] 11.3 g/dL 12.0-15.0 [facility] Blood platelet mean volumeOr dered By: Nima Grover on 08-17-2022 Platelet mean volume (Bld) [Entitic vol] 12.0 fL 6.2-12.0 [facility] Determination of erythrocyte mean corpuscular volume (MCV)Ordered By: Nima Grover on 08-17-2022 MCV (RBC) [Entitic vol] 97.0 fL 81-99 [facility] Hematocrit Auto (Bld) [Volum e fraction]Ordered By: Nima Grover on 08-17-2022 Hematocrit (Bld) [Volume fraction] 35.8 % 37-47 [facility] - Chemistry and C hemistry - challengeOrdered By: Nima Grover on 08-17-2022 CO2 [Moles/Vol] 27.0 mmol/L 21.0-32.0 [facility] Urea nitrogen/Creatinine [Mass ratio] 21.9 mg/mg 10-20 [facility] - Hematology and Cell countsOrdered By: Nima Grover on 08-17-2022 Erythrocyte distribution width (RBC) [Entitic vol] 46.3 fL 35.1-43.9 [facility] Erythrocyte distribution width (RBC) [Ratio] 12.9 % 11.6-14.6 [facility] MCH (RBC) [Entitic mass] 30.6 pg 27.0-32.0 [facility] MCHC Auto (RBC) [Mass/Vol]Or dered By: Nima Grover on 08-17-2022 MCHC (RBC) [Mass/Vol] 31.6 g/dL 32-36 [facility] No Panel InformationOrdered By: Nima Grover on 08-17-2022 Estimated GFR (MDRD) Amer 80 mL/min >60 [facility] Comment on above: GFR Calc Estimated GFR (MDRD) Non-Af Amer 66 mL/min >60 [facility] Comment on above: Non- GFR Calc Platelets bldOrdered By: Imani Grover on 12-22-2022 Platelets (Bld) [#/Vol] 170 10*3/uL 150-450 [facility] Serum or plasma calcium enrique urement (mass/volume)Ordered By: Nima Grover on 08-17-2022 Calcium [Mass/Vol] 8.6 mg/dL 8.5-10.1 [facility] Serum or plasma creatinine m easurement (mass/volume)Ordered By: Nima Grover on 08-17-2022 Creatinine [Mass/Vol] 0.87 mg/dL 0.55-1.02 [facility] Comment on above: The validity of the calculated GFR & GFRAA in patients over 70 years has not been determined. Clinical correlation is essential. Serum or plasma urea nitroge n measurement (mass/volume)Ordered By: Nima Grover on 08-17-2022 Urea nitrogen [Mass/Vol] 19 mg/dL 7-18 [facility] Thin prep Papanicolaou smear with manual screeningOrdered By: Nima Grover on 08-17-2022 Thin prep Papanicolaou smear with manual screening 4 5-15 [facility] Absolute lymphocyte countOrd ered By: Dr. Greenwood on 08-16-2022 Lymphocytes Auto (Unsp spec) [#/Vol] 0.79 10*3/uL 0.83-4.51 [facility] Basophil percentageOrdered B y: Dr. Greenwood on 08-16-2022 Basophils/100 WBC (Bld) 0.5 % 0-1 [facility] Chloride [Moles/Vol] 114 mmol/L 98-107 [facility] Eosinophils/100 WBC (Bld) 6.1 % 0-5 [facility] Glucose [Mass/Vol] 99 mg/dL 74-106 [facility] Neutrophils (Bld) [#/Vol] 2.5 10*3/uL 2.0-7.7 [facility] Neutrophils/100 WBC (Bld) 62.1 % 47-70 [facility] Potassium [Moles/Vol] 4.2 mmol/L 3.5-5.1 [facility] Sodium [Moles/Vol] 143 mmol/L 136-145 [facility] WBC (Bld) [#/Vol] 4.1 10*3/uL 4.4-11.0 [facility] Blood erythrocytes count (nu mber/volume)Ordered By: Dr. Greenwood on 08-16-2022 RBC (Bld) [#/Vol] 3.67 10*6/uL 4.2-5.4 [facility] Blood hemoglobin measurement (mass/volume)Ordered By: Dr. Greenwood on 08-16-2022 Hemoglobin (Bld) [Mass/Vol] 11.4 g/dL 12.0-15.0 [facility] Blood lymphocytes/100 leukoc ytesOrdered By: Dr. Greenwood on 08-16-2022 Lymphocytes/100 WBC (Bld) 19.3 % 19-41 [facility] Blood monocytes/100 leukocyt esOrdered By: Dr. Greenwood on 08-16-2022 Monocytes/100 WBC (Bld) 11.5 % 0-10 [facility] Blood platelet mean volumeOr dered By: Dr. Greenwood on 08-16-2022 Platelet mean volume (Bld) [Entitic vol] 11.5 fL 6.2-12.0 [facility] COVID-19 virus antigen assay Ordered By: Dr. Mclean on 08-16-2022 SARS-CoV-2 (COVID-19) Ag IA.rapid Ql (Resp) [facility] Culture, urineOrdered By: Dr Bertha Rojas on 08-16-2022 Bacteria identified Cx Nom (U) Escherichia coli [facility] Determination of erythrocyte mean corpuscular volume (MCV)Ordered By: Dr. Greenwood on 08-16-2022 MCV (RBC) [Entitic vol] 99.5 fL 81-99 [facility] Hematocrit Auto (Bld) [Volum e fraction]Ordered By: Dr. Greenwood on 08-16-2022 Hematocrit (Bld) [Volume fraction] 36.5 % 37-47 [facility] - Chemistry and C hemistry - challengeOrdered By: Dr. Greenwood on 08-16-2022 CO2 [Moles/Vol] 27.0 mmol/L 21.0-32.0 [facility] Urea nitrogen/Creatinine [Mass ratio] 23.8 mg/mg 10-20 [facility] - Hematology and Cell countsOrdered By: Dr. Greenwood on 08-16-2022 Erythrocyte distribution width (RBC) [Entitic vol] 46.9 fL 35.1-43.9 [facility] Erythrocyte distribution width (RBC) [Ratio] 13.0 % 11.6-14.6 [facility] Immature granulocytes/100 WBC (Bld) 0.500 % 0.0-0.9 [facility] Comment on above: IG% - Immature Granu locytes (promyelocytes, myelocytes and metamyelocytes) > 1% indicates that a LEFT SHIFT is Present. MCH (RBC) [Entitic mass] 31.1 pg 27.0-32.0 [facility] Nucleated RBC/100 WBC (Bld) [Ratio] 0 % 0-5 [facility] MCHC Auto (RBC) [Mass/Vol]Or dered By: Dr. Greenwood on 08-16-2022 MCHC (RBC) [Mass/Vol] 31.2 g/dL 32-36 [facility] No Panel InformationOrdered By: Dr. Greenwood on 08-16-2022 Estimated Creatinine Clearance Calc 50.62 ml/min [facility] Estimated GFR (MDRD) Amer 78 mL/min >60 [facility] Comment on above: GFR Calc Estimated GFR (MDRD) Non-Af Amer 65 mL/min >60 [facility] Comment on above: Non- GFR Calc Platelets bldOrdered By: Dr. Greenwood on 08-16-2022 Platelets (Bld) [#/Vol] 150 10*3/uL 150-450 [facility] Serum or plasma calcium enrique urement (mass/volume)Ordered By: Dr. Greenwood on 08-16-2022 Calcium [Mass/Vol] 8.5 mg/dL 8.5-10.1 [facility] Serum or plasma creatinine m easurement (mass/volume)Ordered By: Dr. Greenwood on 08-16-2022 Creatinine [Mass/Vol] 0.88 mg/dL 0.55-1.02 [facility] Comment on above: The validity of the calculated GFR & GFRAA in patients over 70 years has not been determined. Clinical correlation is essential. Serum or plasma urea nitroge n measurement (mass/volume)Ordered By: Dr. Greenwood on 08-16-2022 Urea nitrogen [Mass/Vol] 21 mg/dL 7-18 [facility] Thin prep Papanicolaou smear with manual screeningOrdered By: Dr. Greenwood on 08-16-2022 Thin prep Papanicolaou smear with manual screening 2 5-15 [facility] Absolute lymphocyte counton 08-14-2022 Lymphocytes Auto (Unsp spec) [#/Vol] 0.32 10*3/uL 0.83-4.51 [facility] Work Phone: Basophil percentageOrdered B y: Dr. Rojas on 08-14-2022 Basophil percentage 10-25 SEEN /hpf 0-5 [facility] Bilirubin [Mass/Vol] 0.80 mg/dL 0.20-1.00 [facility] Comment on above: For patients on eltr ombopag therapy, use of Dimension [place] TBIL is not recommended. Lactate [Moles/Vol] 1.2 mmol/L 0.4-2.0 [facility] Protein [Mass/Vol] 6.6 g/dL 6.4-8.2 [facility] Basophil percentageon 2021 Basophils/100 WBC (Bld) 0.3 % 0-1 [facility] Work Phone: Chloride [Moles/Vol] 107 mmol/L 98-107 [facility] Work Phone: Eosinophils/100 WBC (Bld) 0.5 % 0-5 [facility] Work Phone: Glucose [Mass/Vol] 127 mg/dL 74-106 [facility] Work Phone: Comment on above: Fasting Glucose resu lt greater than or equal to 126 mg/dL suggests DIABETES MELLITUS per A.D.A. criteria. Neutrophils (Bld) [#/Vol] 5.6 10*3/uL 2.0-7.7 [facility] Work Phone: Neutrophils/100 WBC (Bld) 89.4 % 47-70 [facility] Work Phone: Potassium [Moles/Vol] 4.6 mmol/L 3.5-5.1 [facility] Work Phone: [phone] Sodium [Moles/Vol] 137 mmol/L 136-145 [facility] Work Phone: WBC (Bld) [#/Vol] 6.3 10*3/uL 4.4-11.0 [facility] Work Phone: Bilirubin Test strip Ql (U)O rdered By: Dr. Rojas on 08-14-2022 Bilirubin Ql (U) 1 mg/dL Negative [facility] Comment on above: COLOR OF URINE MAY A FFECT DIPSTICK RESULTS. Blood erythrocytes count (nu mber/volume)on 08-14-2022 RBC (Bld) [#/Vol] 4.31 10*6/uL 4.2-5.4 [facility] Work Phone: Blood hemoglobin measurement (mass/volume)on 08-14-2022 Hemoglobin (Bld) [Mass/Vol] 13.2 g/dL 12.0-15.0 [facility] Work Phone: Blood lymphocytes/100 leukoc yteson 08-14-2022 Lymphocytes/100 WBC (Bld) 5.1 % 19-41 [facility] Work Phone: Blood manual differential co mment interpretation (narrative result)Ordered By: Dr. Rojas on 08-14-2022 Manual differential comment [place] (Bld) [Interp] SCANNED [facility] Comment on above: LYMPHOPENIA NOTED Blood monocytes/100 leukocyt eson 08-14-2022 Monocytes/100 WBC (Bld) 4.4 % 0-10 [facility] Work Phone: Blood platelet mean volumeon 08-14-2022 Platelet mean volume (Bld) [Entitic vol] 10.9 fL 6.2-12.0 [facility] Work Phone: CNOVon 08-14-2022 CNOV Office Visit (FAMPWS ) LETTY [id number]) 1940 F Date Time Provider Department 08/14/22 1:20 PM JAREN MONTES During your visit today, we recorded the following information about you: Temperature Pulse Respiration Blood pressure 98.6 degrees 78/minute 24/minute 76/44 Weight 82.6 kg Jaren Montes APRN.DELIVERY STOCK CLERK 08/14/2022 1:55 PM Addendum Chief Complaint Patient [...] more present at this time. Jaren Montes APRN.DELIVERY STOCK CLERK Discussed with granddaughter and son that Letty needs a more immediate work-up and intervention which would best take place at emergency room in hospital. I offered EMS but family declined and will transport themselves. [facility] ER portal updated This note was partly generated using [employer] voice recognition dictation and may contain some [...] - Renea (more content not included)... Normal [facility] Determination of erythrocyte mean corpuscular volume (MCV)on 08-14-2022 MCV (RBC) [Entitic vol] 98.4 fL 81-99 [facility] Work Phone: Hematocrit Auto (Bld) [Volum e fraction]on 08-14-2022 Hematocrit (Bld) [Volume fraction] 42.4 % 37-47 [facility] Work Phone: Hyaline casts LM.LPF (Urine sed) [#/Area]Ordered By: Dr. Rojas on 08-14-2022 Hyaline casts (Urine sed) [#/Area] 0 /[LPF] 0-5 [facility] INR in Blood by Coagulation assayOrdered By: Dr. Rojas on 08-14-2022 INR Coag (Bld) [Relative time] 1.1 {INR} [facility] Ketones Test strip Ql (U)Ord ered By: Dr. Rojas on 08-14-2022 Ketones Ql (U) Negative Negative [facility] Laboratory - Chemistry and C hemistry - challengeOrdered By: Dr. Rojas on 08-14-2022 ALP [Catalytic activity/Vol] 108 U/L 45-117 [facility] ALT [Catalytic activity/Vol] 17 U/L 13-56 [facility] Globulin (S) [Mass/Vol] 3.0 g/dL 2.2-4.2 [facility] Laboratory - Chemistry and C hemistry - challengeon 08-14-2022 CO2 [Moles/Vol] 25.0 mmol/L 21.0-32.0 [facility] Work Phone: Urea nitrogen/Creatinine [Mass ratio] 19.3 mg/mg 10-20 [facility] Work Phone: Laboratory - CoagulationOrde red By: Dr. Rojas on 08-14-2022 aPTT Coag (Bld) [Time] 28.3 s 24.1-36.2 [facility] PT Coag (PPP) [Time] 13.8 s 11.7-14.9 [facility] Laboratory - Hematology and Cell countson 08-14-2022 Erythrocyte distribution width (RBC) [Entitic vol] 46.5 fL 35.1-43.9 [facility] Work Phone: Erythrocyte distribution width (RBC) [Ratio] 12.8 % 11.6-14.6 [facility] Work Phone: Immature granulocytes/100 WBC (Bld) 0.300 % 0.0-0.9 [facility] Work Phone: Comment on above: IG% - Immature Granu locytes (promyelocytes, myelocytes and metamyelocytes) > 1% indicates that a LEFT SHIFT is Present. MCH (RBC) [Entitic mass] 30.6 pg 27.0-32.0 [facility] Work Phone: Nucleated RBC/100 WBC (Bld) [Ratio] 0 % 0-5 [facility] Work Phone: MCHC Auto (RBC) [Mass/Vol]on 08-14-2022 MCHC (RBC) [Mass/Vol] 31.1 g/dL 32-36 [facility] Work Phone: Mucus LM Ql (Urine sed)Order ed By: Dr. Rojas on 08-14-2022 Mucus Ql (Urine sed) 0 SEEN /hpf [facility] Nitrite Test strip Ql (U)Ord ered By: Dr. Rojas on 08-14-2022 Nitrite Ql (U) Positive Negative [facility] No Panel Informationon 08-14 Estimated Creatinine Clearance Calc 31.82 ml/min [facility] Work Phone: Estimated GFR (MDRD) Amer 46 mL/min >60 [facility] Work Phone: Comment on above: GFR Calc Estimated GFR (MDRD) Non-Af Amer 38 mL/min >60 [facility] Work Phone: Comment on above: Non- GFR Calc Platelets bldon 08-14-2022 Platelets (Bld) [#/Vol] 205 10*3/uL 150-450 [facility] Work Phone: Protein Test strip Ql (U)Ord ered By: Dr. Rojas on 08-14-2022 Protein Ql (U) 15 mg/dl Negative [facility] Serum or plasma albumin enrique urement (mass/volume)Ordered By: Dr. Rojas on 08-14-2022 Albumin [Mass/Vol] 3.6 g/dL 3.2-5.0 [facility] Serum or plasma albumin/glob ulin mass ratioOrdered By: Dr. Rojas on 08-14-2022 Albumin/Globulin [Mass ratio] 1.2 {ratio} 0.9-2.4 [facility] Serum or plasma calcium enrique urement (mass/volume)on 08-14-2022 Calcium [Mass/Vol] 8.6 mg/dL 8.5-10.1 [facility] Work Phone: Serum or plasma creatinine m easurement (mass/volume)on 08-14-2022 Creatinine [Mass/Vol] 1.40 mg/dL 0.55-1.02 [facility] Work Phone: Comment on above: The validity of the calculated GFR & GFRAA in patients over 70 years has not been determined. Clinical correlation is essential. Serum or plasma urea nitroge n measurement (mass/volume)on 08-14-2022 Urea nitrogen [Mass/Vol] 27 mg/dL 7-18 [facility] Work Phone: Squamous epithelial cells de tection in urine sediment by light microscopyOrdered By: Dr. Rojas on 08-14-2022 Epithelial cells.squamous LM Ql (Urine sed) 0 SEEN /hpf 5-10 [facility] Thin prep Papanicolaou smear with manual screeningOrdered By: Dr. Rojas on 08-14-2022 Thin prep Papanicolaou smear with manual screening 14 U/L 15-37 [facility] Thin prep Papanicolaou smear with manual screeningon 08-14-2022 Thin prep Papanicolaou smear with manual screening 5 5-15 [facility] Work Phone: Urine blood detectionOrdered By: Dr. Rojas on 08-14-2022 RBC Ql (U) 10 /ul Negative [facility] RBC Ql (U) 0 SEEN /hpf 0-5 [facility] Urine clarityOrdered By: Dr. Rojas on 08-14-2022 Clarity (U) Sl. Cloudy Clear [facility] Urine color determinationOrd ered By: Dr. Rojas on 08-14-2022 Color (U) Yellow Yellow [facility] Urine glucose detectionOrder ed By: Dr. Rojas on 08-14-2022 Glucose Ql (U) Normal mg/dl Normal [facility] Urine leukocyte esterase det ection by dipstickOrdered By: Dr. Rojas on 08-14-2022 Leukocyte esterase Test strip Ql (U) 100 /ul Negative [facility] Urine pHOrdered By: Dr. Radha chaparro on 08-14-2022 pH (U) 5.0 [pH] 5.0 - 8.0 [facility] Urine sediment bacteria coun t by microscopy (number/high power field)Ordered By: Dr. Rojas on 08-14-2022 Bacteria LM.HPF (Urine sed) [#/Area] 2 /[HPF] None Seen [facility] Urine specific gravity measu rementOrdered By: Dr. Rojas on 08-14-2022 Specific gravity (U) [Rel density] 1.015 1.002-1.030 [facility] Urobilinogen Auto test strip Ql (U)Ordered By: Dr. Rojas on 08-14-2022 Urobilinogen Ql (U) 1 mg/dl Normal [facility] CNPNon 06-30-2022 CNPN Telephone (MARIWS) LETTY LEON ([id number]) 1940 F Date Time Provider Department 06/30/22 [...] (Right) [C50.419] 08/03/2005 02/22/2009 SEROMA, POST OP [[id number]] 09/19/2005 02/22/2009 Essential hypertension [I10] 07/23/2006 Syncope [...] by TANYA ROJAS MA on 06/30/22 Normal [facility] CBC panel Auto (Bld)on 06-24 Erythrocyte distribution width (RBC) [Ratio] 13.2 % Normal 11.5-15.0 [facility] Comment on above: Order Comment: Speci men Type: BLOOD SPECIMENOrdering Facility: [facility] Address: [address] [place] [address] [place] [address] Performed By: #### 5 8410-2 ####[facility] LABIA [id number] [address] [place] Hematocrit (Bld) [Volume fraction] 42.0 % Normal 36.0-46.0 [facility] Comment on above: Order Comment: Speci men Type: BLOOD SPECIMENOrdering Facility: [facility] Address: [address] [place], [place] [address] Performed By: #### 5 8410-2 ####[facility] [id number] [place] [address] [place] Hemoglobin (Bld) [Mass/Vol] 12.9 g/dL Normal 11.5-15.5 [facility] Comment on above: Order Comment: Speci men Type: BLOOD SPECIMENOrdering Facility: [facility] Address: [address] [place], [place] [address] Performed By: #### 5 8410-2 ####[facility] [id number] [place] [address] [place] MCH (RBC) [Entitic mass] 30.6 pg Normal 26.0-34.0 [facility] Comment on above: Order Comment: Speci men Type: BLOOD SPECIMENOrdering Facility: [facility] Address: [address] [place], [place] [address] Performed By: #### 5 8410-2 ####[facility] [id number] [address] [place] MCHC (RBC) [Mass/Vol] 30.7 g/dL Normal 30.5-36.0 [facility] Comment on above: Order Comment: Speci men Type: BLOOD SPECIMENOrdering Facility: [facility] Address: [address] [place], [place] [address] Performed By: #### 5 8410-2 ####[facility] [id number] [address] [place] MCV (RBC) [Entitic vol] 99.8 fL Normal 80.0-100.0 [facility] Comment on above: Order Comment: Speci men Type: BLOOD SPECIMENOrdering Facility: [facility] Address: [address] [place], [place] [address] Performed By: #### 5 8410-2 ####[facility] [id number] [place] [address] [place] Nucleated RBC (Bld) [#/Vol] 10*3/uL Normal <0.01 [facility] Comment on above: Order Comment: Speci men Type: BLOOD SPECIMENOrdering Facility: [facility] Address: [address] [place] [address] Performed By: #### 5 8410-2 ####[facility] [id number] [place] [address] [place] Platelet mean volume (Bld) [Entitic vol] 11.7 fL Normal 9.0-12.7 [facility] Comment on above: Order Comment: Speci men Type: BLOOD SPECIMENOrdering Facility: [facility] Address: [address] [place], [place] [address] Performed By: #### 5 8410-2 ####[facility] [id number] [place] [address] [place] Platelets (Bld) [#/Vol] 216 10*3/uL Normal 150-400 [facility] Comment on above: Order Comment: Speci men Type: BLOOD SPECIMENOrdering Facility: [facility] Address: [address] [place], [place] [address] Performed By: #### 5 8410-2 ####[facility] [id number] [place] [address] [place] RBC (Bld) [#/Vol] 4.21 10*6/uL Normal 3.90-5.20 [facility] Comment on above: Order Comment: Speci men Type: BLOOD SPECIMENOrdering Facility: [facility] Address: [address] [address] Performed By: #### 5 8410-2 ####[facility] [id number] [place] [address] [facility] [place] WBC (Bld) [#/Vol] 6.64 10*3/uL Normal 3.70-11.00 [facility] Comment on above: Order Comment: Speci men Type: BLOOD SPECIMENOrdering Facility: [facility] Address: [address] [address] Performed By: #### 5 8410-2 ####[facility] LABCLIA [id number] [address] [place] CNOVon 06-24-2022 CNOV Office Visit (MARIWS ) LETTY LEON ([id number]) 1940 F Date Time Provider Department 06/24/22 [...] today for face to face visit per [facility] so that pt can continue with Physical [...] [Cefadroxil] Hives Floxin [Ofloxacin] Hives Grass Pollen [employer] [place] [employer] Current Medications Current Outpatient Medications [...] for th (more content not included)... Normal [facility] metabolic 2000 panelon 06-24-2022 Albumin [Mass/Vol] 4.2 g/dL Normal 3.9-4.9 [facility] Comment on above: Order Comment: Speci men Type: BLOOD SPECIMENOrdering Facility: [facility] Address: [address] [place] [address] Performed By: #### 3 016-3, 75315-7 ####[facility] LABCLIA [id number] [place] [address] [place] ALP [Catalytic activity/Vol] 123 U/L Normal 34-123 [facility] Comment on above: Order Comment: Speci men Type: BLOOD SPECIMENOrdering Facility: [facility] Address: [address] [place] [address] Performed By: #### 3 016-3, 77563-3 ####[facility] LABCLIA [id number] [place] [address] [place] ALT [Catalytic activity/Vol] 10 U/L Normal 7-38 [facility] Comment on above: Order Comment: Speci men Type: BLOOD SPECIMENOrdering Facility: [facility] Address: [address] [place] [address] Performed By: #### 3 016-3, 92809-6 ####[facility] LABCLIA [id number] [place] [address] [place] Anion gap [Moles/Vol] 14 mmol/L Normal 9-18 [facility] Comment on above: Order Comment: Speci men Type: BLOOD SPECIMENOrdering Facility: [facility] Address: [address] [place] [address] Performed By: #### 3 016-3, 14977-3 ####[facility] LABCLIA [id number] [place] [address] [place] AST [Catalytic activity/Vol] 22 U/L Normal 13-35 [facility] Comment on above: Order Comment: Speci men Type: BLOOD SPECIMENOrdering Facility: [facility] Address: [address] [place] [address] Performed By: #### 3 016-3, 29059-8 ####[facility] LABCLIA [id number] [place] [address] [place] Bilirubin [Mass/Vol] 0.7 mg/dL Normal 0.2-1.3 [facility] Comment on above: Order Comment: Speci men Type: BLOOD SPECIMENOrdering Facility: [facility] Address: [address] Performed By: #### 3 016-3, ####[facility] LABCLIA [id number] [place] [address] [place] Calcium [Mass/Vol] 9.3 mg/dL Normal 8.5-10.2 [facility] Comment on above: Order Comment: Speci men Type: BLOOD SPECIMENOrdering Facility: [facility] Address: [address] [address] Performed By: #### 3 016-3, ####[facility] LABCLIA [id number] [place] [address] [place] Chloride [Moles/Vol] 104 mmol/L Normal 97-105 [facility] Comment on above: Order Comment: Speci men Type: BLOOD SPECIMENOrdering Facility: [facility] Address: [address] Performed By: #### 3 016-3, ####[facility] LABCLIA [id number] [place] [address] [place] CO2 [Moles/Vol] 24 mmol/L Normal 22-30 [facility] Comment on above: Order Comment: Speci men Type: BLOOD SPECIMENOrdering Facility: [facility] Address: [address] Performed By: #### 3 016-3, ####[facility] LABCLIA [id number] [place] [address] [place] Creatinine [Mass/Vol] 1.07 mg/dL High 0.58-0.96 [facility] Comment on above: Order Comment: Speci men Type: BLOOD SPECIMENOrdering Facility: [facility] Address: [address] Performed By: #### 3 016-3, 31599-5 ####[facility] LABCLIA [id number] [place] [address] [place] ESTIMATED GLOMERULAR FILTRATION RATE 52 mL/min/1.73m??? Low >=60 [facility] Comment on above: Order Comment: Hiwot garcia Type: BLOOD SPECIMENOrdering Facility: [facility] Address: [address] [place] [address] Result Comment: Billie mated Glomerular Filtration Rate [...] actual GFR. Performed By: #### 3 016-3, 82628-6 ####[facility]CLIA [id number] [place] [address] [place] Glucose [Mass/Vol] 75 mg/dL Normal 74-99 [facility] Comment on above: Order Comment: Hiwot garcia Type: BLOOD SPECIMENOrdering Facility: [facility] Address: [address] [place] [address] Result Comment: The [place] Diabetes [employer] (ADA) provides guidance for cutoff [...] Standards of Medical Care in Diabetes 2016, [place] [employer]. Diabetes Care. 2016.39(Suppl 1). Performed By: #### 3 016-3, 74705-8 ####[facility] LABCLIA [id number] [place] [address] [place] Potassium [Moles/Vol] 4.2 mmol/L Normal 3.7-5.1 [facility] Comment on above: Order Comment: Speci men Type: BLOOD SPECIMENOrdering Facility: [facility] Address: [address] [place] [address] Performed By: #### 3 016-3, 88430-2 ####[facility]CLIA [id number] [place] [address] [place] Protein [Mass/Vol] 7.0 g/dL Normal 6.3-8.0 [facility] Comment on above: Order Comment: Speci men Type: BLOOD SPECIMENOrdering Facility: [facility] Address: [address] [place] [address] Performed By: #### 3 016-3, 44503-1 ####[facility] [id number] [place] [address] [place] Sodium [Moles/Vol] 142 mmol/L Normal 136-144 [facility] Comment on above: Order Comment: Speci men Type: BLOOD SPECIMENOrdering Facility: [facility] Address: [address] [place] [address] Performed By: #### 3 016-3, 89671-7 ####[facility] [id number] [place] [address] [place] Urea nitrogen [Mass/Vol] 14 mg/dL Normal 7-21 [facility] Comment on above: Order Comment: Speci men Type: BLOOD SPECIMENOrdering Facility: [facility] Address: [address] [place], [place] [address] Performed By: #### 3 016-3, 19785-5 ####[facility] LABCLIA [id number] [place] [address] [place] TSH SerPl-aCncon 06-24-2022 TSH Qn 0.595 m[IU]/L Normal 0.270-4.200 [facility] Comment on above: Order Comment: Speci men Type: BLOOD SPECIMENOrdering Facility: [facility] Address: [address] [facility] [address] [place] [id number] Performed By: #### 3 016-3, 70163-0 ####[facility] LABCLIA [id number] [id number] OF [facility] CNPNon 06-02-2022 CNPN Telephone (FAMPWS) LETTY LEON ([id number]) 1940 F Date Time Provider Department 06/02/22 [facility] During your visit today, we recorded the following information about you: Priyanka Hassan SHOE CASER 06/02/2022 2:43 PM Signed Ray from [facility] calling with PT plan of care, 2 [...] (Right) [C50.419] 08/03/2005 02/22/2009 SEROMA, POST OP [[id number]] 09/19/2005 02/22/2009 Essential hypertension [I10] 07/23/2006 Syncope [...] Status:Closed by TANYA ROJAS MA on 06/07/[address] [facility] 05-30-2022 BRENNAN Telephone (FAMPWS) LETTY LEON ([id number]) 1940 F Date Time Provider Department 05/30/22 GAVINO MELENDEZ During your visit today, we recorded the following information about you: Carey Bell LPN 05/30/2022 12:27 PM Signed Son Nima called to request orders be sent to [facility] for Physical Therapy. Pt has had them in the past. Nima states pt needs PT to help get her moving and walking. Pt had a knee replacement in the past and starting to get stiff. Please review and advise nima once the orders have been sent. [facility] PH [phone]. 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] Order(s):[facility] [[id number]] Order #: [id number]: 1 Prescriptions as of 05/30/2022 - busPIRone [...] (Right) [C50.419] 08/03/2005 02/22/2009 SEROMA, POST OP [[id number]] 09/19/2005 02/22/2009 Essential hypertension [I10] 07/23/2006 Syncope [...] Encounter Status:Closed by ANCELMO GARCIAS on 05/30/22 [facility] 03-22-2022 CNPN Telephone (FAMPWS) LETTY LEON ([id number]) 1940 F Date Time Provider Department 03/22/22 CARLYN BRIZUELA During your visit today, we recorded the following information about you: Priyanka Edouardanali MORRIS 03/22/2022 1:50 PM Signed Patient son Nima Leon calling asking for orders for home PT/OT. Patient had used [facility] previously. Patient is homebound, not very mobile. Son had called home health and was told needs order. Aware PCP is out of office, sending request to [facility] to review. Pending consult, needs diagnosis. Please [...] Order(s):CONSULT TO PHYSICAL THERAPY [9032] Order #: [id number]: 1 FUTURE CONSULT TO INVOICE CLERK [289827] Order #: [id number]: 1 FUTURE Prescriptions as of 03/22/2022 - [...] (Right) [C50.419] 08/03/2005 02/22/2009 SEROMA, POST OP [[id number]] 09/19/2005 02/22/2009 Essential hypertension [I10] 07/23/2006 Syncope [...] Encounter Status:Closed by CARLYN BRIZUELA on 03/22/[address] [facility] CNOVon 01-30-2022 CNOV Office Visit (FAMPWS ) CAROLYNLETTY En ([id number]) 1940 F Date Time Provider Department 01/30/22 1:20 PM GAVION MELENDEZPWS During your visit today, we recorded the [...] kidney disease) stage 3, GFR 30-59 ml/min ([facility]) - Diverticulosis of colon (without mention of [...] Floxin [Ofloxacin] Hives - Grass Pollen - [place] [employer] Current Medications Current Outpatient Medications [...] (M12.9) Arthropathy (more content not included)... Normal [facility] metabolic 2000 panelon 01-25-2022 Albumin [Mass/Vol] 4.5 g/dL Normal 3.9-4.9 [facility] Comment on above: Order Comment: Speci men Type: BLOOD SPECIMENOrdering Facility: [facility] Address: [address] [place] [address] Performed By: #### L DANGELO, 3015-3, ####[facility] LABCLIA [id number] [place] [address] [place] ALP [Catalytic activity/Vol] 113 U/L Normal 34-123 [facility] Comment on above: Order Comment: Speci men Type: BLOOD SPECIMENOrdering Facility: [facility] Address: [address] [place] [address] Performed By: #### L DANGELO, 3015-3, ####[facility]CLIA [id number] [place] [address] [place] ALT [Catalytic activity/Vol] 11 U/L Normal 7-38 [facility] Comment on above: Order Comment: Speci men Type: BLOOD SPECIMENOrdering Facility: [facility] Address: [address] [place] [address] Performed By: #### L DANGELO, 3015-10, ####[facility]CLIA [id number] [place] [address] [place] Anion gap [Moles/Vol] 10 mmol/L Normal 9-18 [facility] Comment on above: Order Comment: Speci men Type: BLOOD SPECIMENOrdering Facility: [facility] Address: [address] [place] [phone] Performed By: #### L CLINTB, 3, ####[facility] LABCLIA [id number] [place] [id number] [place] AST [Catalytic activity/Vol] 20 U/L Normal 13-35 [facility] Comment on above: Order Comment: Speci men Type: BLOOD SPECIMENOrdering Facility: [facility] Address: [address] [place], [place] [address] Performed By: #### L CLINTB, 6-3, ####[facility]CLIA [id number] [place] [address] [place] Bilirubin [Mass/Vol] 0.5 mg/dL Normal 0.2-1.3 [facility] Comment on above: Order Comment: Speci men Type: BLOOD SPECIMENOrdering Facility: [facility] Address: [address] [place] [address] Performed By: #### L CLINTB, 3015-3, ####[facility]CLIA [id number] [place] [address] [place] Calcium [Mass/Vol] 9.7 mg/dL Normal 8.5-10.2 [facility] Comment on above: Order Comment: Speci men Type: BLOOD SPECIMENOrdering Facility: [facility] Address: [address] [place] [address] Performed By: #### Esvin JARAMILLOB, 3015-3, ####[facility]CLIA [id number] [place] [address] [place] Chloride [Moles/Vol] 106 mmol/L High 97-105 [facility] Comment on above: Order Comment: Speci men Type: BLOOD SPECIMENOrdering Facility: [facility] Address: [address] [place] [address] Performed By: #### L IPB, 3015-3, ####[facility] LABCLIA [id number] [place] [id number] [place] CO2 [Moles/Vol] 27 mmol/L Normal 22-30 [facility] Comment on above: Order Comment: Speci men Type: BLOOD SPECIMENOrdering Facility: [facility] Address: [address] [place], [place] [address] Performed By: #### L IPB, 6-3, 31899-1 ####[facility]CLIA [id number] [address] [place] Creatinine [Mass/Vol] 1.11 mg/dL High 0.58-0.96 [facility] Comment on above: Order Comment: Hiwot garcia Type: BLOOD SPECIMENOrdering Facility: [facility] Address: [address] [place] [address] Performed By: #### L IPB, 6-3, 54311-1 ####[facility] [id number] [address] STATES OF [facility] ESTIMATED GLOMERULAR FILTRATION RATE 50 mL/min/1.73m??? Low >=60 [facility] Comment on above: Order Comment: Hiwot garcia Type: BLOOD SPECIMENOrdering Facility: [facility] Address: [address] [place], [place] [address] Result Comment: Billie mated Glomerular Filtration Rate [...] GFR. Performed By: #### L IPB, 6-3, ####[facility]CLIA [id number] [place] [id number] [place] Glucose [Mass/Vol] 102 mg/dL High 74-99 [facility] Comment on above: Order Comment: Hiwot garcia Type: BLOOD SPECIMENOrdering Facility: [facility] Address: [address] [place], [place] [address] Result Comment: The [place] Diabetes [employer] (ADA) provides guidance for cutoff [...] Standards of Medical Care in Diabetes 2016, [place] [employer]. Diabetes Care. 2016.39(Suppl 1). Performed By: #### L IPB, 3015-3, ####[facility]CLIA [id number] [place] [address] [place] Potassium [Moles/Vol] 4.7 mmol/L Normal 3.7-5.1 [facility] Comment on above: Order Comment: Speci men Type: BLOOD SPECIMENOrdering Facility: [facility] Address: [address] [place] [address] Performed By: #### L CLINTB, 3015-10, ####[facility] LABCLIA [id number] [place] [address] [place] Protein [Mass/Vol] 7.0 g/dL Normal 6.3-8.0 [facility] Comment on above: Order Comment: Speci men Type: BLOOD SPECIMENOrdering Facility: [facility] Address: [address] [place], [place] [address] Performed By: #### L IPB, 3015-10, ####[facility] LABCLIA [id number] [place] [address] [place] Sodium [Moles/Vol] 143 mmol/L Normal 136-144 [facility] Comment on above: Order Comment: Speci men Type: BLOOD SPECIMENOrdering Facility: [facility] Address: [address] [place], [place] [id number] Performed By: #### L IPB, 3015-10, ####[facility] LABCLIA [id number] [place] [address] [place] Urea nitrogen [Mass/Vol] 24 mg/dL High 7-21 [facility] Comment on above: Order Comment: Speci men Type: BLOOD SPECIMENOrdering Facility: [facility] Address: [address] [place] [address] Performed By: #### L CLINTB, 3016-3, 36368-4 ####[facility] LABCLIA [id number] [place] [address] [place] LIPID PANEL BASICon 01-26-20 22 Cholesterol [Mass/Vol] 154 mg/dL Normal <200 [facility] Comment on above: Order Comment: Speci men Type: BLOOD SPECIMENOrdering Facility: [facility] Address: [address] [place] [address] Result Comment: <200 mg/dL, Desirable 200-239 mg/dL, Borderline high >239 mg/dL, High Performed By: #### L CLINTB, 3016-3, 44253-5 ####[facility] LABCLIA [id number] [address] [place] Cholesterol in HDL [Mass/Vol] 64 mg/dL Normal >39 [facility] Comment on above: Order Comment: Speci men Type: BLOOD SPECIMENOrdering Facility: [facility] Address: [address] [place], [place] [id number] Result Comment: 40-5 9 mg/dL, Acceptable >59 mg/dL, High: Negative risk factor for coronary heart disease <40 mg/dL, Low: Positive risk factor for coronary heart disease Performed By: #### L CLINTB, 3016-3, 31522-0 ####[facility] LABCLIA [id number] [address] [place] Cholesterol in LDL [Mass/Vol] 76 mg/dL Normal <100 [facility] Comment on above: Order Comment: Speci men Type: BLOOD SPECIMENOrdering Facility: [facility] Address: [address] [place], [place] [id number] Result Comment: <100 mg/dL, Optimal 100-129 mg/dL, Near optimal/above optimal 130-159 mg/dL, Borderline high 160-189 mg/dL, High >189 mg/dL, Very high Secondary prevention optimal LDL Cholesterol levels are recommended to be < 70 mg/dL Performed By: #### L DANGELO, 6-3, 97794-8 ####[facility] LABCLIA [id number] [place] [address] [place] Cholesterol in LDL/Cholesterol in HDL [Mass ratio] 1.19 {ratio} Normal <2.54 [facility] Comment on above: Order Comment: Speci men Type: BLOOD SPECIMENOrdering Facility: [facility] Address: [address] [place] [address] Result Comment: Refe rence: 1. National Cholesterol Education Program ATP III Guideline At-A-Glance Quick Desk Reference: National Heart, Lung, and Blood [place]. National Institutes of Health. 2001: NIH Publication No. 01-3305. 2. An International Atherosclerosis Society position paper: global recommendations for the management of dyslipidemia: executive summary, Atherosclerosis. 2014: 232(2):410-413. Performed By: #### L DANGELO, 3015-, ####[facility] LABCLIA [id number] [place] [address] [place] Cholesterol in VLDL [Mass/Vol] 14 mg/dL Normal <30 [facility] Comment on above: Order Comment: Speci men Type: BLOOD SPECIMENOrdering Facility: [facility] Address: [address] Performed By: #### L DANGELO, 3015-3, ####[facility] LABCLIA [id number] [place] [address] [place] Cholesterol non HDL [Mass/Vol] 90 mg/dL Normal <130 [facility] Comment on above: Order Comment: Speci men Type: BLOOD SPECIMENOrdering Facility: [facility] Address: [address] [place] [address] Result Comment: <130 mg/dL, Optimal 130-159 mg/dL, Near optimal/above optimal 160-189 mg/dL, Borderline high 190-219 mg/dL, High >219 mg/dL, Very high Secondary prevention optimal non HDL Cholesterol levels are recommended to be <100 mg/dL Performed By: #### L CLINTB, 6-3, ####[facility] LABCLIA [id number] [address] [place] Cholesterol.total/Choles terol in HDL [Mass ratio] 2.41 {ratio} Normal <5.10 [facility] Comment on above: Order Comment: Speci men Type: BLOOD SPECIMENOrdering Facility: [facility] Address: [address] [place] [address] Performed By: #### Esvin PIERSON, 3015-3, ####[facility] LABCLIA [id number] [address] STATES OF [facility] FASTING TIME 14 hrs Normal [facility] Comment on above: Order Comment: Speci men Type: BLOOD SPECIMENOrdering Facility: [facility] Address: [address] [place] [address] Performed By: #### Esvin PIERSON, 3, ####[facility] LABCLIA [id number] [address] [place] Triglyceride [Mass/Vol] 68 mg/dL Normal <150 [facility] Comment on above: Order Comment: Speci men Type: BLOOD SPECIMENOrdering Facility: [facility] Address: [address] [place], [place] [id number] Result Comment: <150 mg/dL, Normal 150-199 mg/dL, Borderline high 200-499 mg/dL, High >499 mg/dL, Very high Performed By: #### L DANGELO, 3015-3, ####[facility] LABCLIA [id number] [place] [id number] [place] TSH SerPl-aCncon 01-25-2022 TSH Qn 0.238 m[IU]/L Low 0.270-4.200 [facility] Comment on above: Order Comment: Speci men Type: BLOOD SPECIMENOrdering Facility: [facility] Address: [address] [place] [address] Performed By: #### L [place] [facility], 3016-3, 34641-6 ####[facility] [id number] [address] [place] CNOVon 11-28-2021 CNOV Office Visit (MARIWS ) LETTY LEON ([id number]) 1940 F Date Time Provider Department 11/28/21 [...] Floxin [Ofloxacin] Hives - Grass Pollen - [facility] [employer] Current Medications Current Outpatient Medications [...] current facility-adm (more content not included)... Normal [facility] COVID-19 virus antigen assay SARS-CoV-2 (COVID-19) Ag IA.rapid Ql (Resp) [facility] Work Phone: Culture, urine Bacteria identified Cx Nom (U) Escherichia coli [facility] Work Phone: Vital Signs Date Time Vital Sign Value Performing Clinician Faci lity 10-30-2024 10:15-0500 Body height 175.[address] Ifrah Baker MD [facility] 10-30-2024 10:15-0500 Body mass index (BMI) [Ratio] 32 kg/m2 Dr. Ifrah Baker MD [facility] 10-30-2024 10:15-0500 Body weight 98.[address] Ifrah Baker MD [facility] 10-30-2024 10:15-0500 Diastolic blood pressure 79 mm[Hg] Dr. Ifrah Baker MD [facility] 10-30-2024 10:15-0500 Heart rate 60 /min Dr. Ifrah Baker MD [facility] 10-30-2024 10:15-0500 Respiratory rate 18 /min Dr. Ifrah Baker MD [facility] 10-30-2024 10:15-0500 Systolic blood pressure 117 mm[Hg] Dr. Ifrah Baker MD [facility] 10-29-2023 10:14-0500 Body height 175.[address] Ifrah Baker [facility] 10-29-2023 10:14-0500 Body mass index (BMI) [Ratio] 31 kg/m2 Dr. Ifrah Baker [facility] 10-29-2023 10:14-0500 Body weight 95.[address] Ifrah Baker [facility] 10-29-2023 10:14-0500 Diastolic blood pressure 77 mm[Hg] Dr. Ifrah Baker [facility] 10-29-2023 10:14-0500 Heart rate 60 /min Dr. Ifrah Baker [facility] 10-29-2023 10:14-0500 Respiratory rate 18 /min Dr. Ifrah Baker [facility] 10-29-2023 10:14-0500 SaO2% (BldA) [Mass fraction] 95 % Dr. Ifrah Baker [facility] 10-29-2023 10:14-0500 Systolic blood pressure 123 mm[Hg] Dr. Ifrah Baker [facility] 05-29-2023 22:47-0400 Diastolic blood pressure 76 mm[Hg] [facility] 05-29-2023 22:47-0400 Heart rate 64 /min [facility] 05-29-2023 22:47-0400 Respiratory rate 14 /min [facility] 05-29-2023 22:47-0400 SaO2% (BldA) [Mass fraction] 98 % [facility] 05-29-2023 22:47-0400 Systolic blood pressure 115 mm[Hg] [facility] 05-29-2023 20:04-0400 Body height 175.[address] [facility] 05-29-2023 20:04-0400 Body mass index (BMI) [Ratio] 31.4 kg/m2 [facility] 05-29-2023 20:04-0400 Body temperature 97.6 [degF] [facility] 05-29-2023 20:04-0400 Body weight 96.[address] [facility] 03-02-2023 01:05-0400 Diastolic blood pressure 77 mm[Hg] [facility] 03-02-2023 01:05-0400 Heart rate 62 /min [facility] 03-02-2023 01:05-0400 Respiratory rate 16 /min [facility] 03-02-2023 01:05-0400 SaO2% (BldA) [Mass fraction] 97 % [facility] 03-02-2023 01:05-0400 Systolic blood pressure 129 mm[Hg] [facility] 03-01-2023 19:50-0400 Body height 175.[address] [facility] 03-01-2023 19:50-0400 Body mass index (BMI) [Ratio] 27 kg/m2 [facility] 03-01-2023 19:50-0400 Body temperature 96.8 [degF] [facility] 03-01-2023 19:50-0400 Body weight 83.[address] [facility] 09-07-2022 14:32-0500 Diastolic blood pressure 62 mm[Hg] Gavino Melendez MD Work Phone: [facility] 09-07-2022 14:32-0500 Heart rate 60 /min Gavino Melendez MD Work Phone: [facility] 09-07-2022 14:32-0500 Respiratory rate 16 /min Gavino Melendez MD Work Phone: [facility] 09-07-2022 14:32-0500 Systolic blood pressure 94 mm[Hg] Gavino Melendez MD Work Phone: [facility] 08-16-2022 17:03-0500 Body temperature 98 [degF] Dr. Gavino Melendez Work Phone: [facility] 08-16-2022 17:03-0500 Diastolic blood pressure 84 mm[Hg] Dr. Gavino Melendez Work Phone: [facility] 08-16-2022 17:03-0500 Heart rate 57 /min Dr. Gavino Melendez Work Phone: [facility] 08-16-2022 17:03-0500 Respiratory rate 20 /min Dr. Gavino Melendez Work Phone: [facility] 08-16-2022 17:03-0500 SaO2% (BldA) [Mass fraction] 95 % Dr. Gavino Melendez Work Phone: [facility] 08-16-2022 17:03-0500 Systolic blood pressure 110 mm[Hg] Dr. Gavino Melendez Work Phone: [facility] 08-15-2022 13:46-0500 Body height 175.[address] Gavino Melendez Work Phone: [facility] 08-15-2022 13:46-0500 Body weight 82.[address] Gavino Melendez Work Phone: [facility] 08-14-2022 19:35-0500 Body mass index (BMI) [Ratio] 26.9 kg/m2 Dr. Gavino Melendez Work Phone: [facility] 08-14-2022 19:03-0500 Body temperature 97 [degF] Dr. Gavino Melendez Work Phone: [facility] Work Phone: 08-14-2022 19:03-0500 Diastolic blood pressure 79 mm[Hg] Dr. Gavino Melendez Work Phone: [facility] Work Phone: 08-14-2022 19:03-0500 Heart rate 76 /min Dr. Gavino Melendez Work Phone: [facility] Work Phone: 08-14-2022 19:03-0500 Respiratory rate 20 /min Dr. Gavino Melendez Work Phone: [facility] Work Phone: 08-14-2022 19:03-0500 SaO2% (BldA) [Mass fraction] 97 % Dr. Gavino Melendez Work Phone: [facility] Work Phone: 08-14-2022 19:03-0500 Systolic blood pressure 123 mm[Hg] Dr. Gavino Melendez Work Phone: [facility] Work Phone: 08-14-2022 13:55-0500 Body height 175.[address] Gavino Melendez Work Phone: [facility] Work Phone: 08-14-2022 13:55-0500 Body mass index (BMI) [Ratio] 26.9 kg/m2 Dr. Gavino Melendez Work Phone: [facility] Work Phone: 08-14-2022 13:55-0500 Body weight 82.[address] Gavino Melendez Work Phone: [facility] Work Phone: 08-14-2022 13:42-0500 Diastolic blood pressure 44 mm[Hg] Jaren Montes APRN.DELIVERY STOCK CLERK Work Phone: [facility] 08-14-2022 13:42-0500 Systolic blood pressure 76 mm[Hg] Jaren Montes APRN.DELIVERY STOCK CLERK Work Phone: [facility] 08-14-2022 13:28-0500 Body temperature 98.6 [degF] Jaren Jyoti [employer]LE ERP DEVELOPER.DELIVERY STOCK CLERK Work Phone: [facility] 08-14-2022 13:28-0500 Body weight 82.56 kg Jaren Jyoti [employer]ACLE ERP DEVELOPER.DELIVERY STOCK CLERK Work Phone: [facility] 08-14-2022 13:28-0500 Heart rate 78 /min Jaren Jyoti [employer]ACLE ERP DEVELOPER.DELIVERY STOCK CLERK Work Phone: [facility] 08-14-2022 13:28-0500 Respiratory rate 24 /min Jaren Jyoti [employer]ACLE ERP DEVELOPER.DELIVERY STOCK CLERK Work Phone: [facility] 08-14-2022 13:28-0500 SaO2% (BldA) [Mass fraction] 97 % Jaren Jyoti [employer]ACLE ERP DEVELOPER.DELIVERY STOCK CLERK Work Phone: [facility] 06-24-2022 08:24-0400 Body weight 82.56 kg Gavino Melendez MD Work Phone: [facility] 06-24-2022 08:24-0400 Diastolic blood pressure 74 mm[Hg] Gavino Melendez MD Work Phone: [facility] 06-24-2022 08:24-0400 Heart rate 73 /min Gavino Melendez MD Work Phone: [facility] 06-24-2022 08:24-0400 Respiratory rate 20 /min Gavino Melendez MD Work Phone: [facility] 06-24-2022 08:24-0400 SaO2% (BldA) [Mass fraction] 98 % Gavino Melendez MD Work Phone: [facility] 06-24-2022 08:24-0400 Systolic blood pressure 120 mm[Hg] Gavino Melendez MD Work Phone: [facility] 05-27-2022 13:32-0400 Body height 175.[address] Gavino Melendez Work Phone: [facility] Work Phone: 05-27-2022 13:32-0400 Body mass index (BMI) [Ratio] 25.1 kg/m2 Dr. Gavino Melendez Work Phone: [facility] 05-27-2022 13:32-0400 Body temperature 97.8 [degF] Dr. Gavino Melendez Work Phone: [facility] 05-27-2022 13:32-0400 Body weight 77.[address] Gavino Melendez Work Phone: [facility] 05-27-2022 13:32-0400 Diastolic blood pressure 67 mm[Hg] Dr. Gavino Melendez Work Phone: [facility] 05-27-2022 13:32-0400 Heart rate 64 /min Dr. Gavino Melendez Work Phone: [facility] 05-27-2022 13:32-0400 Respiratory rate 18 /min Dr. Gavino Melendez Work Phone: [facility] 05-27-2022 13:32-0400 SaO2% (BldA) [Mass fraction] 97 % Dr. Gavino Melendez Work Phone: [facility] 05-27-2022 13:32-0400 Systolic blood pressure 126 mm[Hg] Dr. Gavino Melendez Work Phone: [facility] 01-30-2022 13:24-0400 Diastolic blood pressure 74 mm[Hg] Gavino Melendez MD Work Phone: [facility] 01-30-2022 13:24-0400 Heart rate 68 /min Gavino Melendez MD Work Phone: [facility] 01-30-2022 13:24-0400 Respiratory rate 16 /min Gavino Melendez MD Work Phone: [facility] 01-30-2022 13:24-0400 Systolic blood pressure 118 mm[Hg] Gavino Melendez MD Work Phone: [facility] 11-28-2021 15:50-0400 Body weight 80.65 kg Gavino Melendez MD Work Phone: [facility] 11-28-2021 15:50-0400 Diastolic blood pressure 72 mm[Hg] Gavino Melendez MD Work Phone: [facility] 11-28-2021 15:50-0400 Heart rate 60 /min Gavino Melendez MD Work Phone: [facility] 11-28-2021 15:50-0400 Respiratory rate 20 /min Gavino Melendez MD Work Phone: [facility] 11-28-2021 15:50-0400 Systolic blood pressure 114 mm[Hg] Gavino Melendez MD Work Phone: [facility] Encounters Encounter Date Encounter Type Care Provider Facility Start: 02-24-2025 ambulatory [facility] Facility:[facility] Start: 01-29-2025 End: 01-29-[address] Ifrah Baker MD [facility] Work Phone: Start: 01-29-2025 End: 01-29-[address] Tray Cabrera MD [facility] Work Phone: Start: 01-06-2025 [facility] Start: 01-06-[address] Ifrah Baker MD [facility] Start: 12-09-2024 End: 12-09-[address] Ifrah Baker MD [facility] Work Phone: Start: 12-09-2024 End: 12-09-[address] Ifrah Baker MD -[facility] Start: 12-09-2024 End: 12-09-2024 ambulatory Ifrahmiles Baker Facility:[facility] Start: 10-30-2024 End: 10-30-2024 ambulatory [facility] Facility:[facility] Start: 10-30-2024 End: 10-30-[address] Tray Cabrera MD [facility] Work Phone: Start: 07-31-2024 End: 07-31-2024 ambulatory Ifrah Gudla Facility:[facility] Start: 07-31-2024 End: 07-31-[address] Tray Cabrera MD [facility] Work Phone: Start: 06-30-2024 End: 06-30-2024 ambulatory Ifrah Gudla Facility:[facility] Start: 06-24-2024 End: 06-24-2024 ambulatory Ifrah Gudla Facility:[facility] Start: 05-12-2024 End: 05-12-2024 ambulatory Ifrah Gudla Facility:[facility] Start: 05-01-2024 End: 05-01-2024 ambulatory Ifrah Gudla Facility:[facility] Start: 05-01-2024 End: 05-01-2024 ambulatory Ifrah Gudla Facility:[facility] Start: 04-29-2024 ambulatory Ifrah Gudla Facility:[facility] Start: 04-25-2024 End: 04-25-2024 ambulatory Ifrah Gudla Facility:[facility] Start: 04-23-2024 End: 04-23-2024 ambulatory Ifrah Gudla Facility:[facility] Start: 04-21-2024 End: 04-21-2024 ambulatory Ifrah Gudla Facility:[facility] Start: 04-18-2024 End: 04-18-2024 ambulatory Ifrah Gudla Facility:[facility] Start: 04-07-2024 End: 04-07-2024 ambulatory Ifrah Gudla Facility:[facility] Start: 11-05-2023 End: 11-05-[address] Ifrah Baker [facility] Work Phone: Start: 11-05-2023 End: 11-05-[address] Ifrah Baker [facility] Start: 11-01-2023 End: 11-01-[address] Ifrah Baker [facility] Work Phone: Start: 10-29-2023 End: 10-29-[address] Ifrah Baker [facility] Work Phone: Start: 08-02-2023 Non-patient / Non-visit Dr. Ifrah cruz [facility] Start: 08-02-2023 End: 08-02-[address] [facility] Start: 08-02-2023 End: 08-02-[address] [facility] Work [facility]: Start: 07-23-2023 End: 07-23-2023 ambulatory [facility] Work Phone: Start: 07-23-2023 End: 07-23-2023 Patient encounter procedure [facility] Work Phone: Start: 06-20-2023 End: 06-20-2023 ambulatory [facility] Work Phone: Start: 06-20-2023 End: 06-20-2023 Departed Referred [facility] Start: 05-29-2023 End: 05-29-2023 Emergency department patient visit [facility] Work Phone: Start: 03-01-2023 End: 03-02-2023 Emergency department patient visit [facility] Work Phone: Start: 01-01-2023 End: 01-01-2023 Departed Referred [facility] Start: 10-31-2022 Refill Jaren SOTOMAYOR RN.[facility] Work Phone: [facility] Comment on above: Refill Request Start: 10-09-2022 Telephone encounter Keri CHAVIRA [facility] Comment on above: Orders Start: 10-04-2022 Telephone encounter Gavino muse MD Work Phone: [facility] Comment on above: Fdc Placeme nt Start: 09-29-2022 Telephone encounter Gavino muse MD Work Phone: [facility] Comment on above: urine symptoms Start: 09-07-2022 End: 09-07-2022 ambulatory GAVINO MELENDEZ Facility:[facility] Start: 09-07-2022 End: 09-07-2022 Patient encounter procedure Gavino Melendez MD Work Phone: [facility] Comment on above: Essential hypertensi on (Primary Dx); Dementia without behavioral disturbance (HCC); Hyperlipidemia, unspecified hyperlipidemia type; Anxiety and depression; Hypothyroidism, iatrogenic Start: 08-31-[address] Gavino keller Work Phone: [facility] Start: 08-24-2022 End: 08-24-[address] Gavino Melendez Work Phone: [facility] Work Phone: Start: 08-24-2022 End: 08-24-[address] Gavino Melendez Work Phone: [facility] Start: 08-22-[address] Gavino keller Work Phone: [facility] Start: 08-17-[address] Gavino keller Work Phone: [facility] Start: 08-16-2022 Non-patient / Non-visit Dr. Mario Melendez Work Phone: [facility] Start: 08-15-2022 Non-patient / Non-visit Dr. Mario Melendez Work Phone: [facility] Start: 08-14-2022 Non-patient / Non-visit Dr. Mario Melendez Work Phone: [facility] Start: 08-14-2022 End: 08-16-2022 Evaluation and management of inpatient Dr. Gavino Meelndez Work Phone: [facility] Start: 08-14-2022 End: 08-16-[address] Gavino Melendez Work Phone: [facility] Work Phone: Start: 08-14-2022 End: 08-14-2022 ambulatory JAREN MONTES Facility:[facility] Start: 08-14-2022 End: 08-14-2022 Patient encounter procedure Jaren Montes [employer] ERP DEVELOPER.DELIVERY STOCK CLERK Work Phone: [facility] Comment on above: Recurrent falls (Rossi letty Dx); Generalized weakness; Hypotension, unspecified hypotension type; Confusion Start: 06-30-2022 Telephone encounter Gavino muse MD Work Phone: [facility] Comment on above: Results Start: 06-24-2022 End: 06-27-2022 ambulatory GAVINO MELENDEZ Facility:[facility] Start: 06-24-2022 End: 06-24-2022 Patient encounter procedure Gavino Melendez MD Work Phone: [facility] Comment on above: Essential hypertensi on (Primary Dx); Hyperlipidemia, unspecified hyperlipidemia type; Stage 3a chronic kidney disease (HCC); Hypothyroidism, iatrogenic; Arthritis of knee; Anxiety and depression; Flu vaccine need Start: 05-30-2022 Telephone encounter Gavino muse MD Work Phone: [facility] Comment on above: Orders for physical therapy in home (orders to [facility]) Start: 05-27-2022 End: 05-27-2022 Emergency department patient visit Dr. Gavino Melendez Work Phone: [facility] Start: 05-17-2022 End: 05-17-[address] Gavino Melendez Work Phone: [facility] Start: 02-10-2022 End: 02-10-[address] Gavino Melendez Work Phone: [facility] Start: 01-30-2022 End: 01-30-2022 ambulatory GAVINO MELENDEZ Facility:[facility] Start: 01-30-2022 End: 01-30-2022 Patient encounter procedure Gavino Melendez MD Work Phone: [facility] Comment on above: Essential hypertensi on (Primary Dx); Dementia without behavioral disturbance, unspecified dementia type (HCC); Hyperlipidemia, unspecified hyperlipidemia type; Hypothyroidism, iatrogenic; Anxiety and depression Start: 01-25-2022 End: 01-25-2022 ambulatory KANOSH Carlos [facility] Facility:[facility] Start: 12-29-2021 Refill Gavino shea MD Work Phone: [facility] [facility] Comment on above: Refill Request Start: 11-28-2021 End: 11-28-2021 ambulatory [facility] Facility:[facility] Start: 11-28-2021 End: 11-28-2021 Patient encounter procedure Gavino Melendez MD Work Phone: [facility] Comment on above: Essential hypertensi on (Primary [...] Author Start: 06-24-2025 DIABETES SCREEN DIABETES SCREEN [facility] Start: 01-25-2025 DIABETES SCREEN DIABETES SCREEN [facility] Start: 05-23-2024 DIABETES SCREEN DIABETES SCREEN [facility] Start: 03-01-2023 [facility] Start: 11-30-2022 End: 01-30-2023 CBC panel - Blood by Automated count CBC Lab Routine Essential hypertension Hypothyroidism, iatrogenic Expected: 11/30/2022 (Approximate), Expires: 01/30/2023 [facility] Work Phone: Comment on above: Expected: 11/30/2022 (Approximate), Expires: 01/30/2023 Start: 11-30-2022 End: 01-30-2023 Comprehensive metabolic 2000 panel - Serum or Plasma COMP METABOLIC PANEL Lab Routine Hyperlipidemia, unspecified hyperlipidemia type Essential hypertension Expected: 11/30/2022 (Approximate), Expires: 01/30/2023 [facility] Work Phone: Comment on above: Expected: 11/30/2022 (Approximate), Expires: 01/30/2023 Start: 11-30-2022 End: 01-30-2023 Lipid 1996 panel - Serum or Plasma LIPID PANEL BASIC Lab Routine Hyperlipidemia, unspecified hyperlipidemia type Essential hypertension Expected: 11/30/2022 (Approximate), Expires: 01/30/2023 [facility] Work Phone: Comment on above: Expected: 11/30/2022 (Approximate), Expires: 01/30/2023 Start: 11-30-2022 End: 01-30-2023 Thyrotropin [Units/volume] in Serum or Plasma TSH BLD Lab Routine Hypothyroidism, iatrogenic Expected: 11/30/2022 (Approximate), Expires: 01/30/2023 [facility] Work Phone: Comment on above: Expected: 11/30/2022 (Approximate), Expires: 01/30/2023 Start: 08-27-2022 ADVANCE DIRECTIVE DISCUSSION ADVANCE DIRECTIVE DISCUSSION [facility] Start: 08-16-2022 Patient discharge [facility] Start: 08-14-2022 Assessment of risk o f venous thromboembolism [facility] Start: 08-14-2022 Insertion of cathete r into peripheral vein [facility] Start: 08-14-2022 Providing care accor ding to standard [facility] Start: 08-14-2022 Provision of activit y privileges [facility] Start: 08-14-2022 Referral to occupati onal therapist [facility] Start: 08-14-2022 Referral to service [facility] Start: 08-14-2022 [facility] Start: 08-14-2022 Following clinical pathway protocol [facility] Start: 08-14-2022 Verification routine [facility] Work Phone: Start: 08-14-2022 Admission procedure [facility] Start: 08-14-2022 Blood culture [facility] Work Phone: Start: 08-14-2022 [facility] Work Phone: Start: 08-14-2022 End: 08-14-2022 Blood culture [facility] Work Phone: Start: 08-14-2022 Patient referral to dietitian [facility] Start: 08-01-2022 End: 10-01-2022 CBC panel - Blood by Automated count CBC Lab Routine Essential hypertension Expected: 08/01/2022 (Approximate), Expires: 10/01/2022 [facility] Work Phone: Comment on above: Expected: 08/01/2022 (Approximate), Expires: 10/01/2022 Start: 08-01-2022 End: 10-01-2022 Comprehensive metabolic 2000 panel - Serum or Plasma COMP METABOLIC PANEL Lab Routine Hyperlipidemia, unspecified hyperlipidemia type Essential hypertension Expected: 08/01/2022 (Approximate), Expires: 10/01/2022 [facility] Work Phone: Comment on above: Expected: 08/01/2022 (Approximate), Expires: 10/01/2022 Start: 08-01-2022 End: 10-01-2022 LIPID PANEL BASIC LIPID PANEL BASIC Lab Routine Hyperlipidemia, unspecified hyperlipidemia type Essential hypertension Expected: 08/01/2022 (Approximate), Expires: 10/01/2022 [facility] Work Phone: Comment on above: Expected: 08/01/2022 (Approximate), Expires: 10/01/2022 Start: 08-01-2022 End: 10-01-2022 Thyrotropin [Units/volume] in Serum or Plasma TSH BLD Lab Routine Hypothyroidism, iatrogenic Expected: 08/01/2022 (Approximate), Expires: 10/01/2022 [facility] Work Phone: Comment on above: Expected: 08/01/2022 (Approximate), Expires: 10/01/2022 Start: 06-24-2022 End: 08-24-2022 CBC panel - Blood by Automated count [facility] Work Phone: Comment on above: Expected: 06/24/2022 (Approximate), Expires: 08/24/2022 Start: 06-24-2022 End: 08-24-2022 Comprehensive metabolic 2000 panel - Serum or Plasma [facility] Work Phone: Comment on above: Expected: 06/24/2022 (Approximate), Expires: 08/24/2022 Start: 06-24-2022 End: 08-24-2022 Thyrotropin [Units/volume] in Serum or Plasma [facility] Work Phone: Comment on above: Expected: 06/24/2022 (Approximate), Expires: 08/24/2022 Start: 04-27-2022 Influenza vaccination INFLUENZA (#1) [facility] Start: 01-27-2022 End: 03-29-2022 Comprehensive metabolic 2000 panel - Serum or Plasma [facility] Work Phone: Comment on above: Expected: 01/27/2022 (Approximate), Expires: 03/29/2022 Start: 01-27-2022 End: 03-29-2022 LIPID PANEL BASIC LIPID PANEL BASIC Lab Routine Hyperlipidemia, unspecified hyperlipidemia type Expected: 01/27/2022 (Approximate), Expires: 03/29/2022 [facility] Work Phone: Comment on above: Expected: 01/27/2022 (Approximate), Expires: 03/29/2022 Start: 01-27-2022 End: 03-29-2022 Thyrotropin [Units/volume] in Serum or Plasma TSH BLD Lab Routine Hypothyroidism, iatrogenic Expected: 01/27/2022 (Approximate), Expires: 03/29/2022 [facility] Work Phone: Comment on above: Expected: 01/27/2022 (Approximate), Expires: 03/29/2022 Start: 08-27-2021 ADVANCE DIRECTIVE DISCUSSION ADVANCE DIRECTIVE DISCUSSION [facility] Start: 06-09-2011 SHINGRIX VACCINE (2 of 3) REGALADO GRIX VACCINE (2 of 3) [facility] Start: 05-28-2010 Urine microalbumin profile DTAP,TDAP,TD (1 - Tdap) [facility] Start: 02-29-1945 COVID-19 VACCINE (#1) COVID-19 VACCI NE (#1) [facility] Start: 02-29-1945 COVID-19 VACCINE (1) COVID-19 VACCIN E (1) [facility] Start: 1940 COVID-19 VACCINE (#1) COVID-19 VACCI NE (#1) [facility] Anion gap measurement [facility] Work Phone: Bacteria identified in Blood by Culture Blood Culture [facility] Work Phone: Bacteria identified in Urine by Culture Urine Culture [facility] Work Phone: Blood culture [facility] Work Phone: BUN/Creatinine ratio [facility] Work Phone: Calcium [Mass/volume ] in Serum or Plasma [facility] Work Phone: Carbon dioxide, tota l [Moles/volume] in Serum or Plasma [facility] Work Phone: Chloride [Moles/volu me] in Serum or Plasma [facility] Work Phone: Creatinine [Moles/vo lume] in Serum or Plasma [facility] Work Phone: Glucose [Mass/volume ] in Serum or Plasma [facility] Work Phone: Hematocrit [Volume Fraction] of Blood [facility] Work Phone: Hemoglobin [Mass/vol ume] in Blood [facility] Work Phone: Leukocytes [#/volume ] in Blood [facility] Work Phone: Mean corpuscular hemoglobin concentration determination [facility] Work Phone: Mean corpuscular hemoglobin determination [facility] Work Phone: Measurement of renal function [facility] Work Phone: Neutrophil count [facility] Work Phone: Neutrophil percent differential count [facility] Work Phone: Patient Education [facility] Work Phone: Patient referral [facility] Work Phone: Platelets [#/volume] in Blood [facility] Work Phone: Potassium [Moles/vol ume] in Serum or Plasma [facility] Work Phone: Red blood cell count [facility] Work Phone: Red cell distributio n width determination [facility] Work Phone: Sodium [Moles/volume ] in Serum or Plasma [facility] Work Phone: Urea nitrogen [Mass/volume] in Serum or Plasma [facility] Work Phone: [facility] Immunizations Immunization Date Immunization Notes Care Provider [facility] 06-24-2022 influenza, high-dose , quadrivalent vaccine (FLUZONE HIGH DOSE QUADRIVALENT) Gavino Melendez MD Work Phone: [facility] 05-30-2021 influenza, high-dose , quadrivalent vaccine (FLUZONE HIGH DOSE QUADRIVALENT) Gavino Melendez MD Work Phone: [facility] 05-27-[address] Gavino Melendez Work Phone: [facility] 05-05-2020 influenza, high-dose , quadrivalent vaccine (FLUZONE HIGH DOSE QUADRIVALENT) Gavino Melendez MD Work Phone: [facility] 06-09-2019 influenza, high dose seasonal, preservative-free Gavino Melendez MD Work Phone: [facility] 06-21-2018 influenza, high dose seasonal, preservative-free Gavino Melendez MD Work Phone: [facility] 05-29-2017 influenza, injectabl e, quadrivalent, preservative free [facility] 05-29-2017 influenza, seasonal, injectable Dr. Gavino Melendez Work Phone: [facility] 05-27-2017 influenza, high dose seasonal, preservative-free Gavino Melendez MD Work Phone: [facility] 05-27-2016 influenza, high dose seasonal, preservative-free Gavino Melendez MD Work Phone: [facility] 07-16-2015 pneumococcal conjuga te vaccine, 13 valent Gavino Melendez MD Work Phone: [facility] 05-27-2015 influenza, high dose seasonal, preservative-free Gavino Melendez MD Work Phone: [facility] 05-08-2013 influenza virus vacc ine, unspecified formulation Gavino Melendez MD Work Phone: [facility] Work Phone: 05-02-2011 influenza virus vacc ine, unspecified formulation Gavino Melendez MD Work Phone: [facility] 04-14-2011 zoster vaccine, live Gavino nicole MD Work Phone: [facility] Work Phone: 05-27-2010 tetanus and diphther ia toxoids, adsorbed, preservative free, for adult use (2 Lf of tetanus toxoid and 2 Lf of diphtheria toxoid) Gavnio Melendez MD Work Phone: [facility] Work Phone: 05-14-2010 influenza virus vacc ine, unspecified formulation Gavino Melendez MD Work Phone: [facility] Work Phone: 08-27-[address] Shakira Melendez Work Phone: [facility] Work Phone: 08-27-2009 pneumococcal vaccine , unspecified formulation Dr. Gavino Melendez Work Phone: [facility] 05-27-2005 influenza virus vacc ine, unspecified formulation Gavino Melendez MD Work Phone: [facility] Work Phone: 07-29-2004 pneumococcal polysaccharide vaccine, 23 valent Gavino Melendez MD Work Phone: [facility] Work Phone: 05-27-2004 influenza virus vacc ine, unspecified formulation Gavino Melendez MD Work Phone: [facility] Work Phone: 07-27-2003 influenza virus vacc ine, unspecified formulation Gavino Melendez MD Work Phone: [facility] Work Phone: 06-27-2002 influenza virus vacc ine, unspecified formulation Gavino Melendez MD Work Phone: [facility] Work Phone: 07-27-2001 influenza virus vacc ine, unspecified formulation Gavino Melendez MD Work Phone: [facility] Work Phone: 05-27-1997 influenza virus vacc ine, unspecified formulation Gavino Melendez MD Work Phone: [facility] Work Phone: 06-27-1993 pneumococcal polysaccharide vaccine, 23 valent Gavino Melendez MD Work Phone: [facility] Work Phone: Payers Date Payer Category Payer Self-pay [id number] 2023 Medicaid [id number] 2023 Unknown [id number] 2021 Medicare UHC AARP MEDICAR E [facility] MEDICARE PPO [id number] 2021-Present [phone] [place] [id number] PPO [id number] 2021 Medicare UHC AARP MEDICAR E [facility] MEDICARE PPO [id number] 2021-Present [phone] [place] [id number] PPO [id number] 2021 Unknown [id number] 2012 Unknown ANTHEM [id number] 2004 Medicare MEDICARE PART A B [id number] Unknown [facility] [id number] Unknown [id number] Unknown [id number] Unknown [id number] [id number] Unknown [id number] [id number]2 Unknown [id number] [id number]2 Unknown [id number] [id number]2 Unknown [id number] 2.16.840.1.255243.3.579.2.462 Unknown [id number] 2.16.840.1.406435.3.579.2.462 Unknown [id number] 2.16.840.1.731274.3.579.2.462 Unknown [id number] 2.16.840.1.710752.3.579.2.462 Unknown [id number] 2.16.840.1.211757.3.579.2.462 Unknown [id number] [id number]2 Unknown [id number] 2.16.840.1.260557.3.579.2.462 Unknown [id number] 2.16.840.1.702925.3.579.2.462 Unknown [id number] 2.16.840.1.229744.3.579.2.462 Unknown [id number] [id number]2 Unknown [id number] 2.16.840.1.561255.3.579.2.462 Unknown [id number] [id number] Unknown [id number] [id number] Unknown [id number] Social History Date Type Detail Facility Start: 11-16-2011 End: 10-29-2023 Tobacco smoking status NHIS Never smoked tobacco [facility] Start: 11-28-2021 End: 09-07-2022 Alcohol intake Current non-drinker of alcohol (finding) [facility] Start: 1940 Sex Assigned At Not on file [facility] Start: 11-18-2021 End: 06-24-2022 Exposure to SARS-CoV-2 (event) Not sure [facility] Start: 05-27-2022 End: 10-29-2023 Tobacco smoking status WIIS Unknown if ever smoked [facility] Start: 12-17-2020 None [facility] Start: 12-18-2020 Alone [facility] Start: 12-19-2020 Non-smoker [facility] Start: 1940 Sex Assigned At Female W [facility] Start: 11-16-2011 End: 06-24-2022 Tobacco use and exposure Smokeless tobacco non-user [facility] Start: 11-25-2024 Sex Female (finding) [facility] Medical Equipment Procedure Code Equipment Code Equipment Origin al Text Equipment Identifier Dates Cement Simplex P Bone Radiopaque Full Dose Sterile - [id number] Start: 08-16-2016 Ragini Farheen 3 Ti - [id number] Start: 10-26-2011 6.5 X 50 Mm Screw [id number] Start: 10-26-2011 Comment on above: Description: [id number], SCREW 90 Mm Rad Alistair [id number] Start: 10-26-2011 Comment on above: Description: ALISTAIR Component Triath gema 5 Femoral Cemented Posterior Stabilize Knee Right - [id number] Start: 08-16-2016 Insert Triathlon 6 X3 9mm Tibial Posterior Stabilized Bearing Knee - [id number] Start: 08-16-2016 Component Triath gema 38mm X3 11mm Patellar Asymmetric Knee - [id number] Start: 08-16-2016 Baseplate Triath gema 6 Tibial Primary Cement Knee - [id number] Start: 08-16-2016 ([id number]) Endocardial paci ng lead ()[id number] FDA Start: 09-26-2021 ([id number]) Endocardial paci ng lead ()[id number] ()[id number] FDA Start: 09-26-2021 ([id number]) Dual-chamber implantable pacemaker, rate-responsive ()[id number] ([id number] FDA Start: 09-26-2021 Goals Date Patient Goal Desired Activity /State Functional Status Date Assessment Result Facility 08-16-2022 Functional status Bedrest [facility] Work Phone: Mental Status Date Assessment Result Facility 03-01-2023 Cognitive function Level Of Cons ciousness Awake;Alert;Appropriate;Follow s Commands [facility] Work Phone: 08-16-2022 Cognitive function Voice/Name [facility] Work Phone: 08-14-2022 Cognitive function Level Of Cons ciousness Awake;Alert [facility] Work Phone: Clinical Notes 08-16-2016 to 10-30-2024 [...] 10:03am Hyperlipidemia chronic October 30, 2024 10:03am [facility] Work Phone: 1(128) 268-632012-07-2023 Procedure [facility] 05-29-2023 Discharge summary Author Edwin Nath [facility] May 29, 2023 10:47pm Note Date/Time May 29, 2023 8: 40pm [facility] Medical Records Department [address] [place] [address] Emergency Department Summary 05/29/23 MR#: [id number] Acct: [id number] Name: LETTY LEON Rep #:[id number] : [id number] 83 From: Edwin Nath MD PCP: Ifrah Baker MD Status:REG ER Location: ED HPI History of Present Illness Chief Complaint: Lower Extremity Injury Informant: patient and SNF Narrative Narrative: Patient presents after a fall at [facility]. Patient states she fell when [...] arm and mostly the left knee area. [facility] Medical History Anxiety and depression Bradycardia Dementia [...] will be to get her back to [facility]. Lab Data Attestation: I reviewed [...] % (Auto) 62.6 Lymph % (Auto) 21.7 [place] % (Auto) 10.6 H Eos % (Auto) [...] injury, Contusion of arm, left, Fall at [facility], Contusion of hip, left, Contusion of left [...] 3-5 Days if not improving Disposition Disposition: [facility]sp Facility Discharge Location: [facility] What to do if you have Problems For any increased pain, shortness of breath, bleeding, nausea or vomiting, chestpain, or any unexpected problems, contact your Primary Care Provider. Call [facility] ([phone]) or report to the closest Emergency Room. Call 911 if necessary. 05/29/232246 <Electronically signed by Edwin Nath MD> Cosigner Signature (if applicable): CC: Ifrah Baker MD ~ Signed [facility] Work Phone: 1(182) 146-241802-14-2023 Miscellaneous Notes* Telephone Encounter - Tanya Rojas [...] paperwork for patient to be admitted to [facility]. The [facility]p was supposed to fax over paperwork to office on 10/06/22. Patient has a deadline of due to medicare regulation. Please review and advise. FAN Osborn October 09, 2022 2:04 PM documented in this encounterTri[facility] Miscellaneous Notes* Telephone Encounter - Tanya Rojas Ma - 10/05/2022 10:46 AM EST Nima notified. He will contact usp and have them send over paperwork. Tanya Rojas Ma * Telephone Encounter - Gavino Melendez MD - 10/05/2022 8:38 AM EST I can give him an order for admission to [facility]; he may need to contact the usp and have them send the required paperwork here. Gavino Melendez MD * Telephone Encounter - Anahi Moran RN - 10/04/2022 10:07 AM EST Patient's son calls and states that patient has been approved for medicaid. They have until 10/13/2022 to have her placed in a [facility]. Son states that he had taken patient to [facility] ER to help getpatient in the usp per recommendations from [facility]. [facility] ER told son that he needed to contact PCP to get patient placed in [facility]p. Patient is requiring more help then family can give. Patient is getting more confused. Son asking if provider can help patient get into [facility]? Please give son a call back. Please review and advise, Anahi Moran RN documented in this encounterTrihealth [facility]02-06-2023 Miscellaneous Notes* Telephone Encounter - Emelia Rodriguez Ma - 10/02/2022 10:05 AM EST Call to pt son, Nima and notified him of below. He is heading to Pharmacy now and will pharmacy picking technician. May have cleared up, but is picking up Rx. Emelia Rodriguez Ma * Telephone Encounter - Gavino Melendez MD - 09/30/2022 8:22 AM EST OK to go ahead and treat with three days of Bactrim as ordered Gavino Melendez MD * Telephone Encounter - Carey Kyleigh Bell LPN - 09/29/2022 12:05 PM EST [...] son. Carey Bell LPN documented in this encounterTrihealth [facility]01-12-2023 NoteHNO ID: [id number] Author: Gavino Melendez MD Service: ? Author Type: Physician Type: Progress Notes Filed: 09/07/2022 2:56 PM Note Text: Chief Complaint Patient presents with: Hospital F/U: [facility] follow up. HPI Letty Leon is a 82 year old female who presents here today for a [facility] follow up. Pt here today with her son for a [place]. Pt was admitted into [facility] due to UTI, low BP, Dementia and recurrent falls. Pt was admitted from 08/14/22 and was stable for discharge to SNF on 08/16/22. Pt recently discharged from [facility] on 09/03/22. Nima unsure what the patient [...] hospital bed and faxing it over to [facility].. Past medical history, appointments, medications, allergies reviewed. [...] [Cefadroxil] Hives Floxin [Ofloxacin] Hives Grass Pollen [place] [employer] Current Medications Current Outpatient Medications [...] Use Vaping Use: Nev (more content not included)...[facility] 09-07-2022 History of Present illness Narrative* Gavino Melendez MD - 09/07/2022 2:20 PM EST Chief Complaint Patient presents with: Hospital F/U: Fdc follow up. HPI Letty Leon is a 82 year old female who presents here today for a [facility] follow up. Pt here today with her son for a [place] discharge. Pt was admitted into [facility] due to UTI, low BP, Dementia and recurrent falls. Pt was admitted from 08/14/22 and was stable for discharge to SNF on 08/16/22. Pt recently discharged from [facility] on 09/03/22. Nima unsure what the patient [...] hospital bed and faxing it over to [facility].. Past medical history, appointments, medications, allergies reviewed. [...] [Cefadroxil] Hives Floxin [Ofloxacin] Hives Grass Pollen [place] [employer] Current Medications Current Outpatient Medications [...] Moderate Gavino Melendez MD documented in this encounterTrihealth [facility]12-19-2022 NoteHNO ID: [id number] Author: Jaren Montes APRN.DELIVERY STOCK CLERK Service: ? Author Type: Nurse Practitioner Type: [...] but family declined and will transport themselves. [facility] ER portal updated This note was partly generated using Vimodi voice recognition dictation and may contain some misspelled or inaccurate words missed on review.[facility]12-19-2022 History of Present illness Narrative* Jaren Montes [...] but family declined and will transport themselves. [facility] ER portal updated This note was partly generated using The [employer] voice recognition dictation and may contain some misspelled or inaccurate words missed on review. documented in this encounterTrihealth [facility]11-04-2022 Miscellaneous Notes* Telephone Encounter - Tanya Rojas Ma - 06/30/2022 4:54 PM EDT Nima notified. Tanya Rojas Ma * Telephone Encounter - Gavino Melendez MD - 06/30/2022 4:49 PM EDT Please notify patient's son that her lab results look OK; stay on the same medications and follow up as planned Gavino Melendez MD documented in this encounterTrihealth [facility]10-29-2022 NoteHNO ID: [id number] Author: Gavino Melendez MD Service: ? Author Type: Physician Type: Progress Notes Filed: 06/24/2022 12:10 PM Note Text: Chief Complaint Follow up HPI Letty Leon is a 82 year old female who presents here today for follow up. Pt here today for face to face visit per [facility] so that pt can continue with Physical [...] [Cefadroxil] Hives Floxin [Ofloxacin] Hives Grass Pollen [employer] Current Medications Current Outpatient Medications [...] Health Maintenance List COVID- (more content not included)...[facility]10-29-2022 History of Present illness Narrative* Gavino Melendez MD - 06/24/2022 8:20 AM EDT Chief Complaint Follow up HPI Letty Leon is a 82 year old female who presents here today for follow up. Pt here today for face to face visit per [facility] so that pt can continue with PhysicalTherapy. [...] [Cefadroxil] Hives Floxin [Ofloxacin] Hives Grass Pollen [employer] [place] [employer] Current Medications Current Outpatient Medications [...] Moderate Gavino Melendez MD documented in this encounterTri[facility] Miscellaneous Notes* Telephone Encounter - Ancelmo Garcias MA - 05/30/2022 3:57 PM EDT Order faxed to # given. Son notified. Ancelmo Garcias MA * Telephone Encounter - Gavino Melendez MD - 05/30/2022 3:44 PM EDT Home PT ordered Gavino Melendez MD * Telephone Encounter - Carey Bell LPN - 05/30/2022 12:17 PM EDT Son Nima called to request orders be sent to [facility] for Physical Therapy. Pt has had them in the past. Nima states pt needs PT to help get her moving and walking. Pt had a knee replacement in the past and starting to get stiff. Please review and advise nima once the orders have been sent. [facility] PH [phone]. FAX: [phone] Carey Bell LPN documented in this encounterTrihealth [facility]06-06-2022 NoteHNO ID: [id number] Author: Gavino Melendez MD Service: ? Author [...] Floxin [Ofloxacin] Hives - Grass Pollen - [employer] [place] [employer] Current Medications Current Outpatient Medications [...] Smoking status: Never Smoker (more content not included)...[facility]06-06-2022 History of Present illness Narrative* Gavino Melendez [...] [Cefadroxil] Hives Floxin [Ofloxacin] Hives Grass Pollen [employer] [place] [employer] Current Medications Current Outpatient Medications [...] Moderate Gavino Melendez MD documented in this encounterTrihealth [facility]05-05-2022 Miscellaneous Notes* Telephone Encounter - Jaren Montes APRN.DELIVERY STOCK CLERK - 12/29/2021 11:27 AM EDT The following approved medication requests have been transmitted electronically. Pending Prescriptions Disp Refills ATORVASTATIN 20 MG TABLET 90 tablet 3 Sig: Take 1 tablet by mouth once daily. IZABELLA: No Jaren Montes APRN.BRENNA * Telephone Encounter - Mary Gardiner Ma [...] notify patient. Ginny Huang documented in this encounterTrihealth [facility]04-04-2022 NoteHNO ID: [id number] Author: Gavino Melendez MD Service: ? Author [...] Floxin [Ofloxacin] Hives - Grass Pollen - [employer] Current Medications Current Outpatient Medications [...] use: No EXAM: B (more content not included)...[facility]04-04-2022 History of Present illness Narrative* Gavino Melendez [...] [Cefadroxil] Hives Floxin [Ofloxacin] Hives Grass Pollen [employer] [place] [employer] Current Medications Current Outpatient Medications [...] Moderate Gavino Melendez MD documented in this encounterTrihealth [facility]01-01-2022 Evaluation note* Diagnosis Onset Date Resolution Status Presence of permanent cardiac pacemaker August, acute Sick sinus syndrome due to SA node dysfunction acute Sinus pause acute Presence of permanent cardiac pacemaker August, acute Sick sinus syndrome due to SA node dysfunction acute Sinus pause acute Syncope acute [facility] Work Phone: 1(118) 352-675301-01-2022 Evaluation note* Diagnosis Onset Date Resolution Status Presence of permanent cardiac pacemaker August, acute Sick sinus syndrome due to SA node dysfunction acute Sinus pause acute Syncope acute Abnormal chest x-ray acute Debility acute Dementia acute Frequent falls acute Hypotension acute UTI (urinary tract infection) acute [facility] Work Phone: 1(934) 681-546401-01-2022 Evaluation note* Diagnosis Onset Date Resolution Status Presence of permanent cardiac pacemaker August, acute Sick sinus syndrome due to SA node dysfunction acute Sinus pause acute Syncope acute Abnormal chest x-ray acute Debility acute Dementia acute Frequent falls acute UTI (urinary tract infection) acute Hypotension resolved [facility] Work Phone: 1(517) 867-836901-01-2022 Evaluation note* Diagnosis Onset Date Resolution Status Presence of permanent cardiac pacemaker August, acute Sick sinus syndrome due to SA node dysfunction acute Sinus pause acute Presence of permanent cardiac pacemaker August, acute Hyperlipidemia chronic [facility] Work Phone: 1(688) 900-640712-21-2016 History of Past illness Narrative* Problem Noted [...] of this encounter (statuses as of 11/28/2021) [facility] of Past illness Narrative* Problem [...] of this encounter (statuses as of 12/29/2021) [facility] of Past illness Narrative* Problem [...] of this encounter (statuses as of 01/30/2022) [facility] of Past illness Narrative* Problem [...] of this encounter (statuses as of 05/30/2022) [facility] of Past illness Narrative* Problem [...] of this encounter (statuses as of 06/24/2022) [facility] of [facility] illness Narrative* Problem [...] of this encounter (statuses as of 06/30/2022) [facility] of [facility] illness Narrative* Problem [...] of this encounter (statuses as of 08/14/2022) [facility] of [facility] illness Narrative* Problem [...] of this encounter (statuses as of 09/07/2022) [facility] of [facility] illness Narrative* Problem [...] of this encounter (statuses as of 10/02/2022) [facility] of [facility] illness Narrative* Problem [...] of this encounter (statuses as of 10/05/2022) [facility] of [facility] illness Narrative* Problem [...] of this encounter (statuses as of 10/10/2022) [facility] of Past illness Narrative* Problem [...] of this encounter (statuses as of 11/01/2022) [facility] note* Diagnosis Essential hypertension- Primary Unspecified essential hypertension Anxiety and depression Dysthymic disorder Hypothyroidism, iatrogenic Other iatrogenic hypothyroidism Hyperlipidemia, unspecified hyperlipidemia type Dementia without behavioral disturbance, unspecified dementia type (HCC) documented in this encounter [facility] note* Diagnosis Essential hypertension- Primary Unspecified essential hypertension Dementia without behavioral disturbance, unspecified dementia type (HCC) Hyperlipidemia, unspecified hyperlipidemia type Hypothyroidism, iatrogenic Other iatrogenic hypothyroidism Anxiety and depression Dysthymic disorder [facility] [place] [facility] [place] [facility]* Diagnosis Neuritis of lower extremity, unspecified laterality- Primary Generalized weakness Other malaise and fatigue Weakness of both lower extremities Status post total knee replacement, unspecified laterality documented in this [facility] [facility] [place] [facility]* Diagnosis Essential hypertension- Primary Unspecified essential hypertension Hyperlipidemia, unspecified hyperlipidemia type Stage 3a chronic kidney disease (HCC) Hypothyroidism, iatrogenic Other iatrogenic hypothyroidism Arthritis of knee Unspecified arthropathy, lower leg Anxiety and depression Dysthymic disorder Flu vaccine need Need for prophylactic vaccination and inoculation against influenza documented in this encounter [facility] note* Diagnosis Recurrent falls- Primary Personal history of fall Generalized weakness Other malaise and fatigue Hypotension, unspecified hypotension type Confusion Unspecified psychosis documented in this encounter [facility] note* Diagnosis Essential hypertension- Primary Unspecified essential hypertension Dementia without behavioral disturbance (HCC) Dementia, unspecified, without behavioral disturbance Hyperlipidemia, unspecified hyperlipidemia type Anxiety and depression Dysthymic disorder Hypothyroidism, iatrogenic Other iatrogenic hypothyroidism documented in this encounter [facility] noteNo assessment information availableWProMedica Bay Park Hospital Work Phone: Hospital Discharge instructions Additional Instructions Testing in the ER ruled out an acute blood clot in the lung (pulmonary embolus) and myocardial infarction/heart attack.[facility] Work Phone: Reason for referral (narrative)No reason for referral information availableWProMedica Bay Park Hospital Work Phone: Advance Directives No Advanced Directives Records FoundDocuments on File Type Date Recorded Patient Hepatologist Expl anation Advance Directive(s) 08/22/2016 3:19 PM Advance Directive(s) 12/06/2015 11:45 AM Advance Directive(s) 09/01/2009 9:43 PM Advance Directive Response Recorded Date/ Time Advance Directives Yes September 26, 2021 12:01pm Living Will No May 27 1:50pm Power of First Responder No May 27 1:50pm Documents on File Type Date Recorded Patient Hepatologist Expl anation Advance Directive(s) 08/22/2016 3:19 PM Advance Directive(s) 09/01/2009 9:43 PM Advance Directive Response Recorded Date/ Time Name of Medical Power of First Responder Nima Leon August 14, 2022 7:40pm Advance Directives Yes September 26, 2021 11:01am Living Will No August 14 7:40pm Power of First Responder Yes August 14, 2022 7:40pm Advance Directive Response Recorded Date/ Time Name of Medical Power of First Responder family March 01, 2023 7:53pm Advance Directives Yes September 26, 2021 12:01pm Living Will No March 01, 2023 7 :53pm Power of First Responder Yes March 01, 2023 7:53pm Advance Directive Response Recorded Date/ Time Name of Medical Power of First Responder family March 01, 2023 7:53pm Advance Directives Yes September 26, 2021 12:01pm Living Will No May 29 8:03pm Power of First Responder No May 29 023 8:03pm Advance Directive Response Recorded Date/ Time Advance Directives Yes September 26, 2021 11:01am Living Will No May 29 7:03pm Power of First Responder No May 29 023 7:03pm Advance Directive Response Recorded Date/ Time Advance Directives Yes September 26, 2021 12:01pm Living Will No May 29 8:03pm Power of First Responder No May 29 023 8:03pm Advance Directive Response Recorded Date/ Time Living Will No May 29 8:03pm Do you have a Healthcare Power of First Responder? No May 29, 2023 8:03pm Advance Directives [...] DEBILITY. FALLS. DEBILITY. FALLS. DEBILITY. FALLS. DEBILITY. [facility] LABWORK LAB WORK LABWORK Reason for Visit Presence of permanen t cardiac pacemaker Sick sinus syndrome due to SA node dysfunction Sinus pause Syncope Abnormal chest x-ray Debility Dementia Frequent falls UTI (urinary tract infection) Hypotension Chief Complaint LABWORK general illness Chief Complaint general illness FALL Chief Complaint FALL [facility] WORK Chief Complaint FALL [facility] PVD Chief Complaint FALL [facility] WORK PVD PARESTHESIA PARESTHESIA Chief Complaint [...] @ 10 October 30, 2024 10:0 3am Reason for Visit Admit Date PAF (paroxysmal atrial fibrillation) [facility] 2024 10:02am Presence of permanent cardiac pacemaker October 30, 2024 10:02am Sick sinus syndrome due to SA node dysfu nction October 30, 2024 10:02am PAF (paroxysmal atrial fibrillation) [facility] 2024 10:03am Presence of permanent cardiac pacemaker October 30, 2024 10:03am Hyperlipidemia October 30, 2024 10:0 3am Chief Complaint Admit Date Pacer Check Remote October 30, 2024 2:00 am Pacer Check Remote October 30, 2024 9:00 am ANNUAL IN CLINIC/MMM @ 10:October 30, 2024 10:02am 1 Y FU/BLACK @ October 30, 2024 10:0 3am [facility] WORK December 09, 2024 5 :00am Chief Complaint Admit Date Pacer Check Remote October 30, 2024 2:00 am Pacer Check Remote October 30, 2024 9:00 am ANNUAL IN CLINIC/MMM @ 10:October 30, 2024 10:02am 1 Y FU/BLACK @ October 30, 2024 10:0 3am [facility] WORK December 09, 2024 5 :00am [facility] WORK January 06, 2025 5:0 0am Pacer Check Remote January 29, 2025 2:00a m Family History No Family History Records Found Relationship Condition Age at Onset Recorded Date/T [...] or prosecute any alcohol or drug abuse patient.[facility] HospitalIn the event this information is protected by the Federal Confidentiality of Alcohol and Drug Abuse Patient Records regulations: The Federal rules restrict any use of the information to criminally investigate or prosecute any alcohol or drug abuse patient.[facility] HospitalIn the event this information is protected by the Federal Confidentiality of Alcohol and Drug Abuse Patient Records regulations: The Federal rules restrict any use of the information to criminally investigate or prosecute any alcohol or drug abuse patient.[facility] HospitalIn the event this information is protected by the Federal Confidentiality of Alcohol and Drug Abuse Patient Records regulations: The Federal rules restrict any use of the information to criminally investigate or prosecute any alcohol or drug abuse patient.[facility] HospitalIn the event this information is protected by the Federal Confidentiality of Alcohol and Drug Abuse Patient Records regulations: The Federal rules restrict any use of the information to criminally investigate or prosecute any alcohol or drug abuse patient.[facility] HospitalIn the event this information is protected by the Federal Confidentiality of Alcohol and Drug Abuse Patient Records regulations: The Federal rules restrict any use of the information to criminally investigate or prosecute any alcohol or drug abuse patient.[facility] HospitalIn the event this information is protected by the Federal Confidentiality of Alcohol and Drug Abuse Patient Records regulations: The Federal rules restrict any use of the information to criminally investigate or prosecute any alcohol or drug abuse patient.[facility] HospitalIn the event this information is protected by the Federal Confidentiality of Alcohol and Drug Abuse Patient Records regulations: The Federal rules restrict any use of the information to criminally investigate or prosecute any alcohol or drug abuse patient.[facility] HospitalIn the event this information is protected by the Federal Confidentiality of Alcohol and Drug Abuse Patient Records regulations: The Federal rules restrict any use of the information to criminally investigate or prosecute any alcohol or drug abuse patient.[facility] HospitalIn the event this information is protected by the Federal Confidentiality of Alcohol and Drug Abuse Patient Records regulations: The Federal rules restrict any use of the information to criminally investigate or prosecute any alcohol or drug abuse patient.[facility] HospitalIn the event this information is protected by the Federal Confidentiality of Alcohol and Drug Abuse Patient Records regulations: The Federal rules restrict any use of the information to criminally investigate or prosecute any alcohol or drug abuse patient.[facility] HospitalIn the event this information is protected by the Federal Confidentiality of Alcohol and Drug Abuse Patient Records regulations: The Federal rules restrict any use of the information to criminally investigate or prosecute any alcohol or drug abuse patient.[facility] Reason for Visit (unrecogniz ed section and content) Reason Comments F/U 3 Month Specialty Diagnoses / Procedures Referred By [facility] [place] Referred To Contact Family Practice / FAMILY MEDICINE Diagnoses 3 month follow up Procedures 4C Gavino Mccain MD [address] [place] [address] Gavino Melendez MD [address] [place] [address] Referral ID Status Reason Start Date Expiration Date V isits Requested Visits Authorized [id number] Closed Patient Cleared INN/SMCP Payor Auth Obtained 11/28/2021 08/26/2022 1 1 Reason Onset Date Comments Refill Request 12/29/2021 Reason Comments Follow Up Specialty Diagnoses / Procedures Referred By [facility] [place] Referred To Contact Family Practice / FAMILY MEDICINE Diagnoses 2 mo f/u Procedures 4C EST Gavino Melendez MD [address] [place] [address] Gavino Melendez MD [address] [place] [address] Referral ID Status Reason Start Date Expiration Date Visits Re quested Visits Authorized [id number] Closed 01/30/2022 08/26/2022 1 1 Reason Comments Orders for physical therapy in home orde rs to [facility] Reason Comments Results Reason Comments Multiple falls X 1 week Reason Comments Hospital F/U Fdc follow up. Reason Comments urine symptoms Reason Comments Fdc Placement Reason Comments Orders Reason Comments Refill Request Care Teams (unrecognized sec tion and content) Helper Electrical Relationship Specialty Start Date End Date Gavino Melendez MD [address] [place] [address] PCP - General Family Practice 04/13/15 Helper Electrical Relationship Specialty Start Date End Date Gavino Melendez MD [address] [place] [address] PCP - General Family Practice 04/13/15 Helper Electrical Relationship Specialty Start Date End Date Gavino Melendez MD [address] [place] [address] PCP - General Family Practice 04/13/15 Helper Electrical Relationship Specialty Start Date End Date Gavino Melendez MD [address] [place] [address] PCP - General Family Medicine 04/13/15 Helper Electrical Relationship Specialty Start Date End Date Gavino Melendez MD [address] [place] [address] PCP - General Family Medicine 04/13/15 Helper Electrical Relationship Specialty Start Date End Date Gavino Melendez MD [address] [place] [address] PCP - General Family Medicine 04/13/15 Helper Electrical Relationship Specialty Start Date End Date Gavino Melendez MD [address] [place] [address] PCP - General Family Medicine 04/13/15 Team [...] Rojas MD Emergency Provider Active Dr. Oz Mra DO Admit Provider, Other Provider A ctive [...] Provider Active Nima Grover Attending Provider Active [employer]per [employer] Relationship Specialty Start Date End Date Gavino Melendez MD [address] [place], [place] [address] PCP - General Family Medicine 04/13/15 Helper Electrical Relationship Specialty Start Date End Date Gavino Melendez MD [address] [place], [place] [address] PCP - General Family Medicine 04/13/15 Team [...] Care Provider Active Dr. Dominguez Albert MD Emergency Provider Active Team Status: Inactive [...] section and content) DATE CREATED AUTHOR 10/10/2022 [facility] DATE CREATED AUTHOR AUTHOR'S ORGANIZ ATION 03/16/2025 [facility] FOR RECORDS PERTAINING TO PATIENTS WHO ARE [...] BE BASED ON THE PRIMARY CLINICAL RECORDS. [employer] provides no warranty or guarantee of the accuracy or completeness of information in this document.
[2025-03-17 08:40] LABS: Hematocrit 40.8 % (37-47); Hemoglobin 13.0 g/dL (12.0-15.0); Mean Corp Hgb Conc 31.9 g/dL (32-36); Mean Corpuscular Volume 95.6 fL (81-99); Mean Platelet Vol. 11.8 fl (6.2-12.0); Platelet Count 183 K/mm3 (150-450); RBC Distribution Width CV 13.4 % (11.6-14.6); RBC Distribution Width SD 47.5 fl (35.1-43.9); Red Blood Count 4.27 M/mm3 (4.2-5.4); White Blood Count 5.7 K/mm3 (4.4-11.0)
[2025-03-17 09:01] LABS: AST(SGOT) 30 U/L (<=31); Alanine Aminotransfer ALT/SGPT 22 U/L (<=34); Albumin, Serum 3.9 g/dL (3.4-4.8); Alkaline Phosphatase 164 U/L (35-104); Anion Gap 9 (5-15); BUN 28 mg/dL (4-19); BUN/Creat Ratio 27.2 RATIO (10-20); Calcium,Total 9.4 mg/dL (7.6-11.0); Carbon Dioxide 27.1 mmol/L (21.0-32.0); Chloride 108 mmol/L (98-108); Globulin 2.7 g/dL (2.2-4.2); Glucose 92 mg/dL (70-99); Potassium 4.8 mmol/L (3.3-5.1)
== END ==
LOC: OLS.SW 05:00
PROVIDERS: PCP Internal Medicine; Visit Provider Internal Medicine
DX: E11.22 Type 2 diabetes mellitus with diabetic chronic kidney disease (principal); I12.9 Hypertensive chronic kidney disease with stage 1 through stage 4 chronic kidney disease, or unspecified chronic kidney disease; N18.30 Chronic kidney disease, stage 3 unspecified; E78.5 Hyperlipidemia, unspecified; E03.9 Hypothyroidism, unspecified
CPT/HCPCS: 36415; 80053; 85027

== ENCOUNTER → 2025-03-31 | Outpatient (REF) | payer MEDICARE, MEDICAID, SELFPAY ==
[2025-03-31 08:58] LABS: Hematocrit 42.7 % (37-47); Hemoglobin 13.6 g/dL (12.0-15.0); Mean Corp Hgb Conc 31.9 g/dL (32-36); Mean Corpuscular Volume 95.7 fL (81-99); Mean Platelet Vol. 11.9 fl (6.2-12.0); Platelet Count 199 K/mm3 (150-450); RBC Distribution Width CV 13.1 % (11.6-14.6); RBC Distribution Width SD 46.7 fl (35.1-43.9); Red Blood Count 4.46 M/mm3 (4.2-5.4); White Blood Count 6.7 K/mm3 (4.4-11.0)
[2025-03-31 09:35] LABS: Vitamin B12 1006 pg/mL (180-914); Vitamin D,25 Hydroxy 49.1 ng/mL (30-100)
== END ==
LOC: OLS.SW 04:00
PROVIDERS: PCP Internal Medicine; Referring Provider Internal Medicine; Visit Provider Internal Medicine
DX: E03.9 Hypothyroidism, unspecified (principal); I49.5 Sick sinus syndrome; I10 Essential (primary) hypertension; R29.898 Other symptoms and signs involving the musculoskeletal system
CPT/HCPCS: 36415; 82306; 82607; 84443; 85027

== ENCOUNTER → 2025-04-28 05:00 | Outpatient (REF) | payer MEDICARE, MEDICAID, SELFPAY ==
[2025-04-28 09:36] LABS: Hematocrit 38.7 % (37-47); Hemoglobin 12.3 g/dL (12.0-15.0); Mean Corp Hgb Conc 31.8 g/dL (32-36); Mean Corpuscular Volume 96.0 fL (81-99); Mean Platelet Vol. 11.7 fl (6.2-12.0); Platelet Count 205 K/mm3 (150-450); RBC Distribution Width CV 13.1 % (11.6-14.6); RBC Distribution Width SD 46.5 fl (35.1-43.9); Red Blood Count 4.03 M/mm3 (4.2-5.4); White Blood Count 5.0 K/mm3 (4.4-11.0)
[2025-04-28 10:16] LABS: AST(SGOT) 18 U/L (<=31); Alanine Aminotransfer ALT/SGPT 12 U/L (<=34); Albumin, Serum 3.8 g/dL (3.4-4.8); Alkaline Phosphatase 135 U/L (35-104); Anion Gap 9 (5-15); BUN 30 mg/dL (4-19); BUN/Creat Ratio 28.7 RATIO (10-20); Calcium,Total 9.0 mg/dL (7.6-11.0); Carbon Dioxide 24.5 mmol/L (21.0-32.0); Chloride 110 mmol/L (98-108); Globulin 2.8 g/dL (2.2-4.2); Glucose 88 mg/dL (70-99); Potassium 4.6 mmol/L (3.3-5.1)
== END ==
LOC: OLS.SW 05:00
PROVIDERS: PCP Internal Medicine; Visit Provider Internal Medicine
DX: E03.9 Hypothyroidism, unspecified (principal); M62.81 Muscle weakness (generalized); I12.9 Hypertensive chronic kidney disease with stage 1 through stage 4 chronic kidney disease, or unspecified chronic kidney disease; N18.30 Chronic kidney disease, stage 3 unspecified
CPT/HCPCS: 36415; 80053; 84443; 85027

== ENCOUNTER → 2025-05-26 | Outpatient (REF) | payer MEDICARE, MEDICAID, SELFPAY | LOC: OLS.SW 05:00 | PROVIDERS: PCP Internal Medicine; Visit Provider Internal Medicine | DX: E03.9 Hypothyroidism, unspecified (principal) | CPT/HCPCS: 36415; 84443 ==

== ENCOUNTER → 2025-07-22 05:00 | Outpatient (REF) | payer MEDICARE, MEDICAID, SELFPAY ==
--- OUTSIDE RECORDS SUMMARY | 2025-07-22 04:25 | XMS RPT_ITS | CCD ---
Author Organization [facility] Care Team Providers Care Nuclear Technician Name Role Phone Gavino Melendez MD Primary [...] Unavailable ELDERBROCK, GAVINO D Primary Care Unavailable Dr. Ifrah [...] Provider Dr. Tray Cabrera MD Referring Provider [phone] Dr. Ifrah Baker MD Referring Provider UnavailKrystal Alexandre Attending Provider Dr. Ifrah Baker MD Primary Care Provider Dr. Tray Yuen MD Attending Provider Dr. Tray Cabrera MD Referring Provider Dr. Ifrah Baker MD Attending Provider Unavaildayton Baker MD, Dr. Rg Primary Care Provider Popeye Baker MD, Dr. Rg Attending Provider Unavaila ethel Cabrera MD, Dr. Feliz Attending Provider Dr. Tray Cabrera MD Referring Provider Dr. Ifrah Baker MD Referring Provider Unavaila ble Rick, Tray Attending Unavailable Rick, Risingsun Referring Unavailable Gudla, Ifrah Primary Care Unavailable Krystal Martínez Attending Unavail able Gudla, Ifrah Primary Care Unavailable Gudla, Ifrah Referring Unavailable Rick, Tray Attending Unavailable Rick, Tray [...] Attending Unavailable Gudla OLS, Ifrah Referring Unavailable Gudla OLS, Ifrah Attending Unavailable Gudla, Ifrah Primary Care Unavailable Gudla OLS, Ifrah Attending Unavailable Gudla, Ifrah Primary Care Unavailable Gudla OLS, Ifrah Attending Unavailable Gudla, Ifrah Primary Care Unavailable Rick, Risingsun Referring Unavailable Rick, Risingsun Attending Unavailable Gudla, Ifrah Primary Care Unavailable Rick, Tray Referring Unavailable Rick, Tray Attending Unavailable Gudla, Ifrah Primary Care Unavailable Rick, Tray Attending Unavailable Gudla, Ifrah Primary Care Unavailable Rick, Risingsun Referring Unavailable Rick, Tray Attending Unavailable Gudla, Ifrah Primary Care Unavailable Allergies Allergy Classification Reported Allergen(s) Allergy Type Date of Onset Reaction(s) Facility (13 sources) Amoxicillin; Translations: [AMOXICILLIN] Drug Allergy 5 [facility] (13 sources) Cefadroxil; Translations: [CEFADROXIL] Drug Allergy 5 [facility] (13 sources) Grass pollen; Translations: [GRASS POLLEN] Propensity to adverse reactions 5 [facility] Work Phone: (13 sources) Ofloxacin; Translations: [OFLOXACIN] Drug Allergy 5 Hives [facility] (13 sources) Harper Needle Oil; Translations: [PINE NEEDLE OIL] Propensity to adverse reactions 5 [facility] Work Phone: (14 sources) Penicillins Allergy to substance [address] [facility] (14 sources) Sulfonamides (Antibiotic) Allergy to substance [address] [facility] (4 sources) PINE Allergy to substance [address] [facility] (11 sources) Environmental Allergies: Uncoded; Translations: [Environmental Allergies: Uncoded] Allergy to substance [address] [facility] Comment on above: PINE (1 source) Penicillins Drug allergy (disorder) 5 [facility] (1 source) Sulfonamides (Antibiotic) Drug allergy (disorder) 5 [facility] Medications Current Medications Medication Drug Class(es) Dates Sig (Normalized) Sig (Original) 8 hr acetaminophen 650 mg extended release oral tablet (1 source) Start: 05-27-2022 take 1 tablet by mouth every eight hours Acetaminophen (Tylenol 8 Hour) 650 mg tablet extended release Active 650 MG PO Q8H May 27, 2022 12:00am acetaminophen 325 mg / HYDROcodone bitartrate 5 mg oral tablet (4 sources) Opioid Agonist Start: 10-30-2024 Hydrocodone-Acetami nophen 5-325 mg tablet Active 1 {tbl} PO EVERY 4-6 HOURS as needed 0 October 30, 2024 1:00am atorvastatin 20 mg oral tablet (20 sources) HMG-CoA Reductase Inhibitor Start: 12-17-2020 End: 12-29-2021 take 1 tablet by mouth at bedtime Atorvastatin 20 MG tablet Active 20 mg PO AT BEDTIME December 17, 2020 12:00am cholesterol Comment on above: Take 1 tablet by dustin th once daily. busPIRone hydrochloride 10 mg oral tablet (20 sources) Start: 12-05-2021 take 10 mg by mouth once daily Buspirone Active 10 MG PO DAILY December 05, 2021 12:00am Start: 11-28-2021 take 1 tablet by dustin th twice daily Buspirone 10 mg tablet Active 10 mg PO TWICE A DAY December 05, 2021 12:00am DEPRESSION Comment on above: Take 1 tablet by [...] mg PO DAILY December 05, 2021 2:17pm depression Comment on above: Take 1 tablet by dustin once daily. gabapentin 300 mg oral capsule (4 sources) Anti-epileptic Agent Start: take 1 capsule by mouth once daily Gabapentin 300 mg capsule Active 300 mg PO daily October 30, 2024 1:00am levothyroxine sodium 0.1 mg oral tablet (20 sources) l-Thyroxine Start: 021 End: take 1 tablet by mouth once daily Levothyroxine 100 mcg tablet Active 100 ug PO DAILY June 27, 2021 12:00am thyroid Comment on above: Take 1 tablet by [...] venlafaxine 37.5 mg extended release oral capsule (5 sources) Serotonin and Norepinephrine Reuptake Inhibitor Start: [...] 15, 2014 12:00am October 30, 2024 11:19am supplement Comment on above: Take 1,000 Units by mouth once daily. COMPOUNDED PRESCRIPTION (12 sources) Start: 05-16-2017 COMPOUNDED PRESCRIPTION Powerstep orthotics (L85.9) Hyperkeratosis (primary encounter diagnosis) (M20.12) Acquired hallux valgus of left foot (M12.9) Arthropathy 1 Device 0 05/16/2017 Active Comment on above: [employer]step orthotics (L85.9) Hyperkeratosis (primary encounter diagnosis) (M20.12) Acquired hallux valgus of left foot (M12.9) Arthropathy LORazepam 1 mg oral tablet (14 sources) Benzodiazepine Start: 12-17-2020 End: 12-20-2020 Lorazepam [...] Problem Date Documented Date Episodic/Chronic Adjustment disorders (14 sources) Grief finding; Translations: [Adjustment disorder with [...] Onset: 08-01-2016 11-24-2021 Chronic Chronic kidney disease (2 sources) Chronic kidney disease; Translations: [Stage 3a chronic kidney disease (HCC)] Onset: 11-24-2021 Conditions associated with dizziness or vertigo (14 sources) Vertigo; Translations: [Dizziness and giddiness] 08-23-2019 Episodic Conduction disorders (20 sources) Sinus node dysfunction; Translations: [Other specified heart block] Onset: 08-27-2021 Chronic Comment on above: IMPLANTED DEVICE(S): PPM Ventricular lead - Back Shoe Cutter: St Vern, Model # Tendril STS 8TC-58 , Serial # [id number] Atrial lead - Back Shoe Cutter: [employer] Vern, Model # Tendril STS 8TC-52 , Serial # [id number] Generator - Back Shoe Cutter: St Vern, Model # Assurity MRI [id number] , Serial # [id number] Delirium, dementia, and amnestic and other cognitive disorders (20 sources) Dementia; Translations: [Unspecified dementia without behavioral disturbance] Onset: 05-30-2021 Chronic Disorders of lipid metabolism (20 sources) Hyperlipidemia; Translations: [Hyperlipidemia, unspecified] Onset: 08-01-2016 Chronic E Codes: Fall (9 sources) Fall in long-term; Translations: [Unspecified fall, initial encounter] 05-29-2023 Episodic [...] and fatigue (18 sources) Asthenia; Translations: [Weakness] Episodic Nonspecific chest pain (20 sources) Chest pain; Translations: [Chest pain, unspecified] 08-22-2019 Episodic Nutritional deficiencies (13 sources) Vitamin D deficiency; Translations: [Vitamin D deficiency, unspecified] Onset: 10-22-2008 07-16-2015 Chronic Osteoarthritis (13 sources) Primary gonarthrosis, bilateral; 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] Onset: 06-27-2016 06-27-2016 Chronic Other bone disease and musculoskeletal deformities (12 sources) Osteopenia; Translations: [Other specified disorders of bone density and structure, unspecified site] 08-17-2011 Episodic Other circulatory disease (14 sources) Low blood pressure; Translations: [Hypotension, unspecified] Episodic Other circulatory disease (3 sources) Hypotension, unspecified; Translations: [Hypotension, unspecified] Episodic Other connective tissue disease (1 source) History of total knee arthroplasty; Translations: [Presence of unspecified artificial knee joint] Chronic Other connective tissue disease (1 source) Paraparesis; Translations: [Other symptoms and signs involving the musculoskeletal system] Episodic Other connective tissue disease (14 sources) Recurrent falls ; Translations: [Repeated falls] Episodic Other connective tissue disease (3 sources) Repeated falls; Translations: [History of fall] Episodic Other connective tissue disease (2 sources) Muscle weakness (generalized); Translations: [Muscle weakness (generalized)] Onset: 05-11-2025 Episodic Other injuries and conditions due to external causes (9 sources) Closed injury of head; Translations: [Unspecified injury of head, initial encounter] 05-29-2023 Episodic Other nervous system disorders (13 sources) Neuropathy of lower limb; Translations: [Unspecified mononeuropathy of unspecified lower limb] Onset: 10-25-2010 08-22-2021 Chronic Other screening for suspected conditions (not mental disorders or infectious disease) (16 sources) Imaging of thorax abnormal; Translations: [Abnormal findings on diagnostic imaging of other specified body structures] Chronic Other screening for suspected conditions (not mental disorders or infectious disease) (14 sources) Other specified abnormal findings of blood chemistry; Translations: [Elevated liver function tests] 12-17-2020 Episodic Residual codes; unclassified (15 sources) Confusional state; Translations: [Disorientation, unspecified] Episodic [...] substances] Onset: 04-16-2012 Chronic Transient cerebral ischemia (14 sources) Transient cerebral ischemia; Translations: [Transient cerebral [...] [Abnormal weight loss] Onset: 11-03-2020 11-03-2020 Episodic Spondylosis; intervertebral disc disorders; other back problems (12 sources) Spinal stenosis of lumbar region; Translations: [Spinal stenosis, lumbar region without neurogenic claudication] Onset: 10-26-2011 Episodic Results Test Name Value Interpretation Reference Range Facility Thyroid Stim Hormone (TSH)on 05-26-2025 TSH 9.090 uIU/mL High 0.300-4.200 [facility] Comment on above: Order Comment: 408.2 Performed By: #### L 501.2320 #### [facility] [place], [address] Anion gap in Serum or Plasma Ordered By: Ifrah Baker on 04-28-2025 Anion gap [Moles/Vol] 9 mmol/L 5-15 [facility] BUN/creatinine ratioOrdered By: Ifrah Baker on 04-28-2025 Urea nitrogen/Creatinine [Mass ratio] 28.7 mg/mg High 10- [facility] Bilirubin, totalOrdered By: Ifrah Baker on 04-28-2025 Bilirubin [Mass/Vol] 0.35 mg/dL 0.00-1.30 [facility] CBC-Complete Blood Cnt No Di ffon 04-28-2025 Erythrocyte distribution width (RBC) [Ratio] 13.1 % Normal 11.6-14.6 [facility] Comment on above: Order Comment: 408.2 Performed By: #### L 100.0500, L501.9520, L506.1001, L503.0106 #### [facility] [address] [place], [address] Hematocrit (Bld) [Volume fraction] 38.7 % Normal 37-47 [facility] Comment on above: Order Comment: 408.2 Performed By: #### L 100.0500, L501.9520, L506.1001, L503.0106 #### [facility] [address] [place], [address] Hemoglobin (Bld) [Mass/Vol] 12.3 g/dL Normal 12.0-15.0 [facility] Comment on above: Order Comment: 408.2 Performed By: #### L 100.0500, L501.9520, L506.1001, L503.0106 #### [facility] [address] [place], [address] MCH (RBC) [Entitic mass] 30.5 pg Normal 27.0-32.0 [facility] Comment on above: Order Comment: 408.2 Performed By: #### L 100.0500, L501.9520, L506.1001, L503.0106 #### [facility] [address] [place], [address] MCHC (RBC) [Mass/Vol] 31.8 g/dL Low 32-36 [facility] Comment on above: Order Comment: 408.2 Performed By: #### L 100.0500, L501.9520, L506.1001, L503.0106 #### [facility] [address] [place], [address] MCV (RBC) [Entitic vol] 96.0 fL Normal 81-99 [facility] Comment on above: Order Comment: 408.2 Performed By: #### L 100.0500, L501.9520, L506.1001, L503.0106 #### [facility] [address] [place], [address] Platelet mean volume (Bld) [Entitic vol] 11.7 fL Normal 6.2-12.0 [facility] Comment on above: Order Comment: 408.2 Performed By: #### L 100.0500, L501.9520, L506.1001, L503.0106 #### [facility] [address] [place], [address] Platelets (Bld) [#/Vol] 205 10*3/uL Normal 150-450 [facility] Comment on above: Order Comment: 408.2 Performed By: #### L 100.0500, L501.9520, L506.1001, L503.0106 #### [facility] [address] [place], [address] RBC (Bld) [#/Vol] 4.03 10*6/uL Low 4.2-5.4 [facility] Comment on above: Order Comment: 408.2 Performed By: #### L 100.0500, L501.9520, L506.1001, L503.0106 #### [facility] [address] [place], [address] RDW SD 46.5 fl High 35.1-43.9 [facility] Comment on above: Order Comment: 408.2 Performed By: #### L 100.0500, L501.9520, L506.1001, L503.0106 #### [facility] [address] [place], [address] WBC (Bld) [#/Vol] 5.0 10*3/uL Normal 4.4-11.0 [facility] Comment on above: Order Comment: 408.2 Performed By: #### L 100.0500, L501.9520, L506.1001, L503.0106 #### [facility] [address] [place], [address] Carbon dioxide, total [Moles /volume] in Central venous bloodOrdered By: Ifrah Baker on 04-28-2025 CO2 [Moles/Vol] 24.5 mmol/L 21.0-32.0 [facility] Chloride assayOrdered By: Shaun Baker on 04-28-2025 Chloride [Moles/Vol] 110 mmol/L High 98-108 [facility] Comprehensive Metabolic Prof ilon 04-28-2025 Albumin [Mass/Vol] 3.8 g/dL Normal 3.4-4.8 [facility] Comment on above: Order Comment: 408.2 Performed By: #### L 100.0500, L501.9520, L506.1001, L503.0106 #### [facility] [address] [place], [address] Albumin/Globulin [Mass ratio] 1.3 {ratio} Normal 0.9-2.4 [facility] Comment on above: Order Comment: 408.2 Performed By: #### L 100.0500, L501.9520, L506.1001, L503.0106 #### [facility] [address] [place], [address] ALK PHOS 135 U/L High 35-104 [facility] Comment on above: Order Comment: 408.2 Performed By: #### L 100.0500, L501.9520, L506.1001, L503.0106 #### [facility] [address] [place], [address] ALT [Catalytic activity/Vol] 12 U/L Normal <=34 [facility] Comment on above: Order Comment: 408.2 Performed By: #### L 100.0500, L501.9520, L506.1001, L503.0106 #### [facility] [address] [place], [address] AST [Catalytic activity/Vol] 18 U/L Normal <=31 [facility] Comment on above: Order Comment: 408.2 Performed By: #### L 100.0500, L501.9520, L506.1001, L503.0106 #### [facility] [address] [place], [address] Bilirubin [Mass/Vol] 0.35 mg/dL Normal 0.00-1.30 [facility] Comment on above: Order Comment: 408.2 Performed By: #### L 100.0500, L501.9520, L506.1001, L503.0106 #### [facility] [address] [place], [address] BUN/CRE 28.7 RATIO High 10-20 [facility] Comment on above: Order Comment: 408.2 Performed By: #### L 100.0500, L501.9520, L506.1001, L503.0106 #### [facility] [address] [place], [address] Calcium [Mass/Vol] 9.0 mg/dL Normal 7.6-11.0 [facility] Comment on above: Order Comment: 408.2 Performed By: #### L 100.0500, L501.9520, L506.1001, L503.0106 #### [facility] [address] [place], [address] Chloride [Moles/Vol] 110 mmol/L High 98-108 [facility] Comment on above: Order Comment: 408.2 Performed By: #### L 100.0500, L501.9520, L506.1001, L503.0106 #### [facility] [address] [place], [address] CO2 [Moles/Vol] 24.5 mmol/L Normal 21.0-32.0 [facility] Comment on above: Order Comment: 408.2 Performed By: #### L 100.0500, L501.9520, L506.1001, L503.0106 #### [facility] [address] [place], [address] Creatinine [Mass/Vol] 1.05 mg/dL Normal 0.70-1.20 [facility] Comment on above: Order Comment: 408.2 Performed By: #### L 100.0500, L501.9520, L506.1001, L503.0106 #### [facility] [address] [place], [address] GAP 9 Normal 5-15 [facility] Comment on above: Order Comment: 408.2 Performed By: #### L 100.0500, L501.9520, L506.1001, L503.0106 #### [facility] [address] [place], [address] GFR/1.73 sq M.predicted among non-blacks MDRD (S/P/Bld) [Vol rate/Area] 52 mL/min/{1.73_m2} Low >60 [facility] Comment on above: Order Comment: 408.2 Result Comment: mL/m in/1.73m2 CKD-EPI Creatinine Equation (2020) Performed By: #### L 100.0500, L501.9520, L506.1001, L503.0106 #### [facility] [address] [place], [address] Globulin (S) [Mass/Vol] 2.8 g/dL Normal 2.2-4.2 [facility] Comment on above: Order Comment: 408.2 Performed By: #### L 100.0500, L501.9520, L506.1001, L503.0106 #### [facility] [address] [place], [address] Glucose [Mass/Vol] 88 mg/dL Normal 70-99 [facility] Comment on above: Order Comment: 408.2 Performed By: #### L 100.0500, L501.9520, L506.1001, L503.0106 #### [facility] [address] [place], [address] Potassium [Moles/Vol] 4.6 mmol/L Normal 3.3-5.1 [facility] Comment on above: Order Comment: 408.2 Performed By: #### L 100.0500, L501.9520, L506.1001, L503.0106 #### [facility] [address] [place], [address] Sodium [Moles/Vol] 144 mmol/L Normal 133-145 [facility] Comment on above: Order Comment: 408.2 Performed By: #### L 100.0500, L501.9520, L506.1001, L503.0106 #### [facility] [address] [place], [address] T PROT 6.6 g/dL Normal 5.9-8.4 [facility] Comment on above: Order Comment: 408.2 Performed By: #### L 100.0500, L501.9520, L506.1001, L503.0106 #### [facility] [address] [place], [address] Urea nitrogen [Mass/Vol] 30 mg/dL High 4-19 [facility] Comment on above: Order Comment: 408.2 Performed By: #### L 100.0500, L501.9520, L506.1001, L503.0106 #### [facility] [address] [place], [place], [address] Erythrocyte distribution wid th ratioOrdered By: Ifrah Baker on 04-28-2025 Erythrocyte distribution width (RBC) [Ratio] 13.1 % 11.6-14.6 [facility] Erythrocyte distribution wid th standard deviationOrdered By: Ifrah Baker on 04-28-2025 Erythrocyte distribution width (RBC) [Ratio] 46.5 fl High 35.1-43.9 [facility] Glomerular filtration rate ( GFR) estimation/1.73 sq m using serum, plasma, or whole bOrdered By: Ifrah Baker on 04-28-2025 GFR/1.73 sq M.predicted among non-blacks MDRD (S/P/Bld) [Vol rate/Area] 52 mL/min/{1.73_m2} Low >60 [facility] Comment on above: mL/min/1.73m2 CKD-EP I Creatinine Equation (2020) Hematocrit Auto (Bld) [Volum e fraction]Ordered By: Ifrah Baker on 04-28-2025 Hematocrit (Bld) [Volume fraction] 38.7 % 37-47 [facility] Hemoglobin measurementOrdere d By: Ifrah Baker on 04-28-2025 Hemoglobin (Bld) [Mass/Vol] 12.3 g/dL 12.0-15.0 [facility] - Chemistry and C hemistry - challengeOrdered By: Ifrah Baker on 04-28-2025 AST [Catalytic activity/Vol] 18 U/L <32 [facility] MCV (mean corpuscular volume ) determinationOrdered By: Ifrah Baker on 04-28-2025 MCV (RBC) [Entitic vol] 96.0 fL 81-99 [facility] Mean corpuscular hemoglobin (MCH) determinationOrdered By: Ifrah Baker on 04-28-2025 MCH (RBC) [Entitic mass] 30.5 pg 27.0-32.0 [facility] Mean corpuscular hemoglobin concentration (MCHC) determinationOrdered By: Ifrah Baker on 04-28-2025 MCHC (RBC) [Mass/Vol] 31.8 g/dL Low 32-36 [facility] Mean platelet volume determi nationOrdered By: Ifrah Baker on 04-28-2025 Platelet mean volume (Bld) [Entitic vol] 11.7 fL 6.2-12.0 [facility] Platelet countOrdered By: Shaun Baker on 04-28-2025 Platelets (Bld) [#/Vol] 205 10*3/uL 150-450 [facility] Potassium measurement (mass/ volume)Ordered By: Ifrah Baker on 04-28-2025 Potassium (Unsp spec) [Mass/Vol] 4.6 mmol/L 3.3-5.1 [facility] RBC Auto (Bld) [#/Vol]Ordere d By: Ifrah Baker on 04-28-2025 RBC (Bld) [#/Vol] 4.03 10*6/uL Low 4.2-5.4 [facility] Serum creatinine measurement (mass/volume)Ordered By: Ifrah Baker on 04-28-2025 Creatinine [Mass/Vol] 1.05 mg/dL 0.70-1.20 [facility] Serum globulin measurementOr dered By: Ifrah Baker on 04-28-2025 Globulin (S) [Mass/Vol] 2.8 g/dL 2.2-4.2 [facility] Serum glucose measurement (m ass/volume)Ordered By: Ifrah Baker on 04-28-2025 Glucose [Mass/Vol] 88 mg/dL 70-99 [facility] Serum or plasma alanine greenberg otransferase (ALT) measurementOrdered By: Ifrah Baker on 04-28-2025 ALT [Catalytic activity/Vol] 12 U/L <35 [facility] Serum or plasma albumin enrique urement (mass/volume)Ordered By: Ifrah Baker on 04-28-2025 Albumin [Mass/Vol] 3.8 g/dL 3.4-4.8 [facility] Serum or plasma albumin/glob ulin mass ratioOrdered By: Ifrah Baker on 04-28-2025 Albumin/Globulin [Mass ratio] 1.3 {ratio} 0.9-2.4 [facility] Serum or plasma alkaline crystal sphatase measurementOrdered By: Ifrah Baker on 04-28-2025 ALP [Catalytic activity/Vol] 135 U/L High 35-104 [facility] Serum or plasma calcium enrique urement (mass/volume)Ordered By: Ifrah Baker on 04-28-2025 Calcium [Mass/Vol] 9.0 mg/dL 7.6-11.0 [facility] Serum or plasma urea nitroge n measurement (mass/volume)Ordered By: Ifrah Baker on 04-28-2025 Urea nitrogen [Mass/Vol] 30 mg/dL High 4-19 [facility] Sodium levelOrdered By: Evonne Baker on 04-28-2025 Sodium [Moles/Vol] 144 mmol/L 133-145 [facility] TSH DL <= 0.005 mIU/L QnOrde red By: Ifrah Baker on 04-28-2025 TSH Qn 8.680 uIU/mL High 0.300-4.200 [facility] Thyroid Stim Hormone (TSH)on 04-28-2025 TSH 8.680 uIU/mL High 0.300-4.200 [facility] Comment on above: Order Comment: 408.2 Performed By: #### L 100.0500, L501.9520, L506.1001, L503.0106 #### [facility] [address] [place], [address] Total proteinOrdered By: Brandy Baker on 04-28-2025 Protein [Mass/Vol] 6.6 g/dL 5.9-8.4 [facility] White blood cell (WBC) count Ordered By: Ifrah Baker on 04-28-2025 WBC (Bld) [#/Vol] 5.0 10*3/uL 4.4-11.0 [facility] CBC-Complete Blood Cnt No Di ffon 03-31-2025 Erythrocyte distribution width (RBC) [Ratio] 13.1 % Normal 11.6-14.6 [facility] Comment on above: Order Comment: 408.2 Performed By: #### L 100.0500, L501.9520, L506.1001, L503.0106 #### [facility] [address] [place], [address] Hematocrit (Bld) [Volume fraction] 42.7 % Normal 37-47 [facility] Comment on above: Order Comment: 408.2 Performed By: #### L 100.0500, L501.9520, L506.1001, L503.0106 #### [facility] [address] [place], [address] Hemoglobin (Bld) [Mass/Vol] 13.6 g/dL Normal 12.0-15.0 [facility] Comment on above: Order Comment: 408.2 Performed By: #### L 100.0500, L501.9520, L506.1001, L503.0106 #### [facility] [address] [place], [address] MCH (RBC) [Entitic mass] 30.5 pg Normal 27.0-32.0 [facility] Comment on above: Order Comment: 408.2 Performed By: #### L 100.0500, L501.9520, L506.1001, L503.0106 #### [facility] [address] [place], [address] MCHC (RBC) [Mass/Vol] 31.9 g/dL Low 32-36 [facility] Comment on above: Order Comment: 408.2 Performed By: #### L 100.0500, L501.9520, L506.1001, L503.0106 #### [facility] [address] [place], [address] MCV (RBC) [Entitic vol] 95.7 fL Normal 81-99 [facility] Comment on above: Order Comment: 408.2 Performed By: #### L 100.0500, L501.9520, L506.1001, L503.0106 #### [facility] [address] [place], [address] Platelet mean volume (Bld) [Entitic vol] 11.9 fL Normal 6.2-12.0 [facility] Comment on above: Order Comment: 408.2 Performed By: #### L 100.0500, L501.9520, L506.1001, L503.0106 #### [facility] [address] [place], [address] Platelets (Bld) [#/Vol] 199 10*3/uL Normal 150-450 [facility] Comment on above: Order Comment: 408.2 Performed By: #### L 100.0500, L501.9520, L506.1001, L503.0106 #### [facility] [address] [place], [address] RBC (Bld) [#/Vol] 4.46 10*6/uL Normal 4.2-5.4 [facility] Comment on above: Order Comment: 408.2 Performed By: #### L 100.0500, L501.9520, L506.1001, L503.0106 #### [facility] [address] [place], [address] RDW SD 46.7 fl High 35.1-43.9 [facility] Comment on above: Order Comment: 408.2 Performed By: #### L 100.0500, L501.9520, L506.1001, L503.0106 #### [facility] [address] [place], [address] WBC (Bld) [#/Vol] 6.7 10*3/uL Normal 4.4-11.0 [facility] Comment on above: Order Comment: 408.2 Performed By: #### L 100.0500, L501.9520, L506.1001, L503.0106 #### [facility] [address] [place], [address] Erythrocyte distribution wid th ratioOrdered By: Ifrah Baker on 03-31-2025 Erythrocyte distribution width (RBC) [Ratio] 13.1 % 11.6-14.6 [facility] Erythrocyte distribution wid th standard deviationOrdered By: Ifrah Baker on 03-31-2025 Erythrocyte distribution width (RBC) [Ratio] 46.7 fl High 35.1-43.9 [facility] Hematocrit Auto (Bld) [Volum e fraction]Ordered By: Ifrah Baker on 03-31-2025 Hematocrit (Bld) [Volume fraction] 42.7 % 37-47 [facility] Hemoglobin measurementOrdere d By: Ifrah Baker on 03-31-2025 Hemoglobin (Bld) [Mass/Vol] 13.6 g/dL 12.0-15.0 [facility] MCV (mean corpuscular volume ) determinationOrdered By: Ifrah Baker on 03-31-2025 MCV (RBC) [Entitic vol] 95.7 fL 81-99 [facility] Mean corpuscular hemoglobin (MCH) determinationOrdered By: Ifrah Baker on 03-31-2025 MCH (RBC) [Entitic mass] 30.5 pg 27.0-32.0 [facility] Mean corpuscular hemoglobin concentration (MCHC) determinationOrdered By: Ifrah Baker on 03-31-2025 MCHC (RBC) [Mass/Vol] 31.9 g/dL Low 32-36 [facility] Mean platelet volume determi nationOrdered By: Ifrah Baker on 03-31-2025 Platelet mean volume (Bld) [Entitic vol] 11.9 fL 6.2-12.0 [facility] Platelet countOrdered By: Shaun Baker on 03-31-2025 Platelets (Bld) [#/Vol] 199 10*3/uL 150-450 [facility] RBC Auto (Bld) [#/Vol]Ordere d By: Ifrah Baker on 03-31-2025 RBC (Bld) [#/Vol] 4.46 10*6/uL 4.2-5.4 [facility] TSH DL <= 0.005 mIU/L QnOrde red By: Ifrah Baker on 03-31-2025 TSH Qn 2.150 uIU/mL 0.300-4.200 [facility] Thyroid Stim Hormone (TSH)on 03-31-2025 TSH 2.150 uIU/mL Normal 0.300-4.200 [facility] Comment on above: Order Comment: 408.2 Performed By: #### L 100.0500, L501.9520, L506.1001, L503.0106 #### [facility] [address], [address] Vitamin B12on 03-31-2025 Cobalamin (Vitamin B12) [Mass/Vol] 1006 pg/mL High 180-914 [facility] Comment on above: Order Comment: 408.2 Performed By: #### L 100.0500, L501.9520, L506.1001, L503.0106 #### [facility] [address] [place], [address] Vitamin B12 ser/plasOrdered By: Ifrah Baker on 03-31-2025 Cobalamin (Vitamin B12) [Mass/Vol] 1006 pg/mL High 180-914 [facility] Vitamin D,25 Hydroxyon 03-31 Vitamin D 25-OH 49.1 ng/mL Normal 30-100 [facility] Comment on above: Order Comment: 408.2 Result Comment: [place] min D Status Deficiency: <20 ng/mL (50nmol/L) Insufficiency: 20-30 ng/mL (50-75 nmol/L) Sufficiency: 30-100 ng/mL (75-250 nmol/L) Toxicity: >100 ng/mL (>250 nmol/L) Performed By: #### L 100.0500, L501.9520, L506.1001, L503.0106 #### [facility] [address], [address] White blood cell (WBC) count Ordered By: Ifrah Baker on 03-31-2025 WBC (Bld) [#/Vol] 6.7 10*3/uL 4.4-11.0 [facility] Anion gap in Serum or Plasma Ordered By: Ifrah Baker on 03-17-2025 Anion gap [Moles/Vol] 9 mmol/L 5- [facility] BUN/creatinine ratioOrdered By: Ifrah Baker on 03-17-2025 Urea nitrogen/Creatinine [Mass ratio] 27.2 mg/mg High 10- [facility] Bilirubin, totalOrdered By: Ifrah Baker on 03-17-2025 Bilirubin [Mass/Vol] 0.39 mg/dL 0.00-1.30 [facility] CBC-Complete Blood Cnt No Di ffon 03-17-2025 Erythrocyte distribution width (RBC) [Ratio] 13.4 % Normal 11.6-14.6 [facility] Comment on above: Order Comment: 408.2 Performed By: #### L 100.0500, L500.4050 #### [facility] [address] [place], [address] Hematocrit (Bld) [Volume fraction] 40.8 % Normal 37-47 [facility] Comment on above: Order Comment: 408.2 Performed By: #### L 100.0500, L500.4050 #### [facility] [address] [place], [address] Hemoglobin (Bld) [Mass/Vol] 13.0 g/dL Normal 12.0-15.0 [facility] Comment on above: Order Comment: 408.2 Performed By: #### L 100.0500, L500.4050 #### [facility] [address] [place], [address] MCH (RBC) [Entitic mass] 30.4 pg Normal 27.0-32.0 [facility] Comment on above: Order Comment: 408.2 Performed By: #### L 100.0500, L500.4050 #### [facility] [address] [place], [address] MCHC (RBC) [Mass/Vol] 31.9 g/dL Low 32-36 [facility] Comment on above: Order Comment: 408.2 Performed By: #### L 100.0500, L500.4050 #### [facility] [address] [place], [address] MCV (RBC) [Entitic vol] 95.6 fL Normal 81-99 [facility] Comment on above: Order Comment: 408.2 Performed By: #### L 100.0500, L500.4050 #### [facility] [address] [place], [address] Platelet mean volume (Bld) [Entitic vol] 11.8 fL Normal 6.2-12.0 [facility] Comment on above: Order Comment: 408.2 Performed By: #### L 100.0500, L500.4050 #### [facility] [address] [place], [address] Platelets (Bld) [#/Vol] 183 10*3/uL Normal 150-450 [facility] Comment on above: Order Comment: 408.2 Performed By: #### L 100.0500, L500.4050 #### [facility] [address] [place], [address] RBC (Bld) [#/Vol] 4.27 10*6/uL Normal 4.2-5.4 [facility] Comment on above: Order Comment: 408.2 Performed By: #### L 100.0500, L500.4050 #### [facility] [address] [place], [address] RDW SD 47.5 fl High 35.1-43.9 [facility] Comment on above: Order Comment: 408.2 Performed By: #### L 100.0500, L500.4050 #### [facility] [address] [place], [address] WBC (Bld) [#/Vol] 5.7 10*3/uL Normal 4.4-11.0 [facility] Comment on above: Order Comment: 408.2 Performed By: #### L 100.0500, L500.4050 #### [facility] [address] [place], [address] Carbon dioxide, total [Moles /volume] in Central venous bloodOrdered By: Ifrah Baker on 03-17-2025 CO2 [Moles/Vol] 27.1 mmol/L 21.0-32.0 [facility] Chloride assayOrdered By: Shaun Baker on 03-17-2025 Chloride [Moles/Vol] 108 mmol/L 98-108 [facility] Comprehensive Metabolic Prof ilon 03-17-2025 Albumin [Mass/Vol] 3.9 g/dL Normal 3.4-4.8 [facility] Comment on above: Order Comment: 408.2 Performed By: #### L 100.0500, L500.4050 #### [facility] [address] [place], [address] Albumin/Globulin [Mass ratio] 1.4 {ratio} Normal 0.9-2.4 [facility] Comment on above: Order Comment: 408.2 Performed By: #### L 100.0500, L500.4050 #### [facility] [address] [place], [address] ALK PHOS 164 U/L High 35-104 [facility] Comment on above: Order Comment: 408.2 Performed By: #### L 100.0500, L500.4050 #### [facility] [address] [place], [address] ALT [Catalytic activity/Vol] 22 U/L Normal <=34 [facility] Comment on above: Order Comment: 408.2 Performed By: #### L 100.0500, L500.4050 #### [facility] [address] [place], [address] AST [Catalytic activity/Vol] 30 U/L Normal <=31 [facility] Comment on above: Order Comment: 408.2 Performed By: #### L 100.0500, L500.4050 #### [facility] [address] [place], [address] Bilirubin [Mass/Vol] 0.39 mg/dL Normal 0.00-1.30 [facility] Comment on above: Order Comment: 408.2 Performed By: #### L 100.0500, L500.4050 #### [facility] [address] [place], [address] BUN/CRE 27.2 RATIO High 10-20 [facility] Comment on above: Order Comment: 408.2 Performed By: #### L 100.0500, L500.4050 #### [facility] [address] [place], [address] Calcium [Mass/Vol] 9.4 mg/dL Normal 7.6-11.0 [facility] Comment on above: Order Comment: 408.2 Performed By: #### L 100.0500, L500.4050 #### [facility] [address] [place], [address] Chloride [Moles/Vol] 108 mmol/L Normal 98-108 [facility] Comment on above: Order Comment: 408.2 Performed By: #### L 100.0500, L500.4050 #### [facility] [address] [place], [address] CO2 [Moles/Vol] 27.1 mmol/L Normal 21.0-32.0 [facility] Comment on above: Order Comment: 408.2 Performed By: #### L 100.0500, L500.4050 #### [facility] [address] [place], [address] Creatinine [Mass/Vol] 1.03 mg/dL Normal 0.70-1.20 [facility] Comment on above: Order Comment: 408.2 Performed By: #### L 100.0500, L500.4050 #### [facility] [address] [place], [address] GAP 9 Normal 5-15 [facility] Comment on above: Order Comment: 408.2 Performed By: #### L 100.0500, L500.4050 #### [facility] [address] [place], [address] GFR/1.73 sq M.predicted among non-blacks MDRD (S/P/Bld) [Vol rate/Area] 53 mL/min/{1.73_m2} Low >60 [facility] Comment on above: Order Comment: 408.2 Result Comment: mL/m in/1.73m2 CKD-EPI Creatinine Equation (2020) Performed By: #### L 100.0500, L500.4050 #### [facility] [address] [place], [address] Globulin (S) [Mass/Vol] 2.7 g/dL Normal 2.2-4.2 [facility] Comment on above: Order Comment: 408.2 Performed By: #### L 100.0500, L500.4050 #### [facility] [address] [place], [address] Glucose [Mass/Vol] 92 mg/dL Normal 70-99 [facility] Comment on above: Order Comment: 408.2 Performed By: #### L 100.0500, L500.4050 #### [facility] [address] [place], [address] Potassium [Moles/Vol] 4.8 mmol/L Normal 3.3-5.1 [facility] Comment on above: Order Comment: 408.2 Performed By: #### L 100.0500, L500.4050 #### [facility] [address] [place], [address] Sodium [Moles/Vol] 144 mmol/L Normal 133-145 [facility] Comment on above: Order Comment: 408.2 Performed By: #### L 100.0500, L500.4050 #### [facility] [address] [place], [address] T PROT 6.6 g/dL Normal 5.9-8.4 [facility] Comment on above: Order Comment: 408.2 Performed By: #### L 100.0500, L500.4050 #### [facility] [address] [place], [address] Urea nitrogen [Mass/Vol] 28 mg/dL High 4-19 [facility] Comment on above: Order Comment: 408.2 Performed By: #### L 100.0500, L500.4050 #### [facility] [address] [place], [address] Erythrocyte distribution wid th ratioOrdered By: Ifrah Baker on 03-17-2025 Erythrocyte distribution width (RBC) [Ratio] 13.4 % 11.6-14.6 [facility] Erythrocyte distribution wid th standard deviationOrdered By: Ifrah Baker on 03-17-2025 Erythrocyte distribution width (RBC) [Ratio] 47.5 fl High 35.1-43.9 [facility] Glomerular filtration rate ( GFR) estimation/1.73 sq m using serum, plasma, or whole bOrdered By: Ifrah Baker on 03-17-2025 GFR/1.73 sq M.predicted among non-blacks MDRD (S/P/Bld) [Vol rate/Area] 53 mL/min/{1.73_m2} Low >60 [facility] Comment on above: mL/min/1.73m2 CKD-EP I Creatinine Equation (2020) Hematocrit Auto (Bld) [Volum e fraction]Ordered By: Ifrah Baker on 03-17-2025 Hematocrit (Bld) [Volume fraction] 40.8 % 37-47 [facility] Hemoglobin measurementOrdere d By: Ifrah Baker on 03-17-2025 Hemoglobin (Bld) [Mass/Vol] 13.0 g/dL 12.0-15.0 [facility] - Chemistry and C hemistry - challengeOrdered By: Ifrah Baker on 03-17-2025 AST [Catalytic activity/Vol] 30 U/L <32 [facility] MCV (mean corpuscular volume ) determinationOrdered By: Ifrah Baker on 03-17-2025 MCV (RBC) [Entitic vol] 95.6 fL 81-99 [facility] Mean corpuscular hemoglobin (MCH) determinationOrdered By: Ifrah Baker on 03-17-2025 MCH (RBC) [Entitic mass] 30.4 pg 27.0-32.0 [facility] Mean corpuscular hemoglobin concentration (MCHC) determinationOrdered By: Ifrah Baker on 03-17-2025 MCHC (RBC) [Mass/Vol] 31.9 g/dL Low 32-36 [facility] Mean platelet volume determi nationOrdered By: Ifrah Baker on 03-17-2025 Platelet mean volume (Bld) [Entitic vol] 11.8 fL 6.2-12.0 [facility] Platelet countOrdered By: Shaun Baker on 03-17-2025 Platelets (Bld) [#/Vol] 183 10*3/uL 150-450 [facility] Potassium measurement (mass/ volume)Ordered By: Ifrah Baker on 03-17-2025 Potassium (Unsp spec) [Mass/Vol] 4.8 mmol/L 3.3-5.1 [facility] RBC Auto (Bld) [#/Vol]Ordere d By: Ifrah Baker on 03-17-2025 RBC (Bld) [#/Vol] 4.27 10*6/uL 4.2-5.4 [facility] Serum creatinine measurement (mass/volume)Ordered By: Ifrah Baker on 03-17-2025 Creatinine [Mass/Vol] 1.03 mg/dL 0.70-1.20 [facility] Serum globulin measurementOr dered By: Ifrah Baker on 03-17-2025 Globulin (S) [Mass/Vol] 2.7 g/dL 2.2-4.2 [facility] Serum glucose measurement (m ass/volume)Ordered By: Ifrah Baker on 03-17-2025 Glucose [Mass/Vol] 92 mg/dL 70-99 [facility] Serum or plasma alanine greenberg otransferase (ALT) measurementOrdered By: Ifrah Baker on 03-17-2025 ALT [Catalytic activity/Vol] 22 U/L <35 [facility] Serum or plasma albumin enrique urement (mass/volume)Ordered By: Ifrah Baker on 03-17-2025 Albumin [Mass/Vol] 3.9 g/dL 3.4-4.8 [facility] Serum or plasma albumin/glob ulin mass ratioOrdered By: Ifrah Baker 03-17-2025 Albumin/Globulin [Mass ratio] 1.4 {ratio} 0.9-2.4 [facility] Serum or plasma alkaline crystal sphatase measurementOrdered By: Ifrah Baker on 03-17-2025 ALP [Catalytic activity/Vol] 164 U/L High 35-104 [facility] Serum or plasma calcium enrique urement (mass/volume)Ordered By: Ifrah Baker 03-17-2025 Calcium [Mass/Vol] 9.4 mg/dL 7.6-11.0 [facility] Serum or plasma urea nitroge n measurement (mass/volume)Ordered By: Ifrah Baker on 03-17-2025 Urea nitrogen [Mass/Vol] 28 mg/dL High 4-19 [facility] Sodium levelOrdered By: Evonne Baker on 03-17-2025 Sodium [Moles/Vol] 144 mmol/L 133-145 [facility] Total proteinOrdered By: Brandy Baker on 03-17-2025 Protein [Mass/Vol] 6.6 g/dL 5.9-8.4 [facility] White blood cell (WBC) count Ordered By: Ifrah Baker on 03-17-2025 WBC (Bld) [#/Vol] 5.7 10*3/uL 4.4-11.0 [facility] Calculated very low density lipoprotein (VLDL) cholesterol measurementOrdered By: Ifrah Baker on 02-24-2025 Calculated very low density lipoprotein (VLDL) cholesterol measurement 19 mg/dL 5-40 [facility] LDL calc ser/plasOrdered By: Ifrah Baker on 02-24-2025 Cholesterol in LDL [Mass/Vol] 67 mg/dL [facility] Comment on above: Ubalkqwhjj=994-814 m g/dL & Higher Vpoi=540 mg/dL or greater Lipid Profileon 02-24-2025 CHOL:HDL 2.[address] [facility] Comment on above: Order Comment: 408.2 Performed By: #### L 500.4100 #### [facility] [address] [place], [address] Cholesterol [Mass/Vol] 130 mg/dL Normal <=200 [facility] Comment on above: Order Comment: 408.2 Result Comment: Chol esterol level, Desirable <200 mg/dL Borderline high cholesterol 200-239 mg/dL High cholesterol >=240 mg/dL Recommendations of the NCEP Adult Treatment Panel for the following risk-cutoff thresholds for the [place] population. Performed By: #### L 500.4100 #### [facility] [address] [place], [address] Cholesterol in HDL [Mass/Vol] 44 mg/dL Normal [facility] Comment on above: Order Comment: 408.2 Result Comment: Gianna onal Cholesterol Education Program (NCEP) guidelines: <40 mg/dL: Low HDL-cholesterol (major risk factor for CHD) >= 60 mg/dL: High HDL-cholesterol (negative risk factor for CHD) HDL-cholesterol is affected by a number of factors, e.g. smoking, exercise, hormones, sex and age. Performed By: #### L 500.4100 #### [facility] [address] [place], [address] Cholesterol in LDL [Mass/Vol] 67 mg/dL Normal [facility] Comment on above: Order Comment: 408.2 Result Comment: Bord dthber=966-972 mg/dL Higher Adgk=422 mg/dL or greater Performed By: #### L 500.4100 #### [facility] [address] [place], [address] Cholesterol in VLDL [Mass/Vol] 19 mg/dL Normal 5-40 [facility] Comment on above: Order Comment: 408.2 Performed By: #### L 500.4100 #### [facility] [address] [place], [address] Triglyceride [Mass/Vol] 95 mg/dL Normal [facility] Comment on above: Order Comment: 408.2 Result Comment: The drugs N-Acetylcysteine and Metamizole may falsely depress this assay. Normal range: <150 mg/dL Borderline High: 150-199 mg/dL High: 200-499 mg/dL Very High: >500 mg/dL Performed By: #### L 500.4100 #### [facility] [address] [place], [address] Screening total cholesterol/ high density lipoprotein (HDL) cholesterol ratioOrdered By: Ifrah Baker on 02-24-2025 Cholesterol.total/Choles terol in HDL [Mass ratio] 2.96 {ratio} [facility] Serum or plasma cholesterol in HDL measurement (mass/volume)Ordered By: Ifrah Baker on 02-24-2025 Cholesterol in HDL [Mass/Vol] 44 mg/dL >40 [facility] Comment on above: National Cholesterol Education Program (NCEP) guidelines:<40 mg/dL: Low HDL-cholesterol (major risk factor for CHD)>= 60 mg/dL: High HDL-cholesterol (negative risk factor for CHD)HDL-cholesterol is affected by a number of factors, e.g. smoking, exercise, hormones, sex and age. Serum or plasma cholesterol measurement (mass/volume)Ordered By: Ifrah Baker on 02-24-2025 Cholesterol [Mass/Vol] 130 mg/dL <201 [facility] Comment on above: Cholesterol level, D esirable <200 mg/dLBorderline high cholesterol 200-239 mg/dLHigh cholesterol >=240 mg/dLRecommendations of the NCEP Adult Treatment Panel for the following risk-cutoff thresholds for the [place] population. Triglycerides measurementOrd ered By: Ifrah Baker on 02-24-2025 Triglyceride [Mass/Vol] 95 mg/dL <199 [facility] Comment on above: The drugs N-Acetylcy steine and Metamizole may falsely depress this assay. Normal range: <150 mg/dLBorderline High: 150-199 mg/dLHigh: 200-499 mg/dLVery High: >500 mg/dL Automated blood erythrocyte countOrdered By: Ifrah Baker on 01-06-2025 RBC (Bld) [#/Vol] 4.05 10*6/uL Low 4.2-5.4 [facility] Comment on above: Order Comment: 408.2 Performed By: #### L 100.0500, L501.9520, L506.1001, L503.0106 #### [facility] [address] [place], [place], [id number] Automated blood hematocrit ( percentage)Ordered By: Ifrah Baker on 01-06-2025 Hematocrit (Bld) [Volume fraction] 39.6 % Normal 37-47 [facility] Comment on above: Order Comment: 408.2 Performed By: #### L 100.0500, L501.9520, L506.1001, L503.0106 #### [facility] [address] [place], [place], [id number] CBC-Complete Blood Cnt No Di ffon 01-06-2025 RDW SD 49.7 fl High 35.1-43.9 [facility] Comment on above: Order Comment: 408.2 Performed By: #### L 100.0500, L501.9520, L506.1001, L503.0106 #### [facility] [address] [place], [address] Erythrocyte distribution wid th ratioOrdered By: Ifrah Baker on 01-06-2025 Erythrocyte distribution width (RBC) [Ratio] 13.7 % Normal 11.6-14.6 [facility] Comment on above: Order Comment: 408.2 Performed By: #### L 100.0500, L501.9520, L506.1001, L503.0106 #### [facility] [address] [place], [address] Erythrocyte distribution wid th standard deviationOrdered By: Ifrah Baker on 01-06-2025 Erythrocyte distribution width (RBC) [Ratio] 49.7 fl High 35.1-43.9 [facility] Hemoglobin measurementOrdere d By: Ifrah Baker on 01-06-2025 Hemoglobin (Bld) [Mass/Vol] 12.4 g/dL Normal 12.0-15.0 [facility] Comment on above: Order Comment: 408.2 Performed By: #### L 100.0500, L501.9520, L506.1001, L503.0106 #### [facility] [address] [place], [address] MCV (mean corpuscular volume ) determinationOrdered By: Ifrah Baker on 01-06-2025 MCV (RBC) [Entitic vol] 97.8 fL Normal 81-99 [facility] Comment on above: Order Comment: 408.2 Performed By: #### L 100.0500, L501.9520, L506.1001, L503.0106 #### [facility] [address] [place], [address] Mean corpuscular hemoglobin (MCH) determinationOrdered By: Ifrah Baker on 01-06-2025 MCH (RBC) [Entitic mass] 30.6 pg Normal 27.0-32.0 [facility] Comment on above: Order Comment: 408.2 Performed By: #### L 100.0500, L501.9520, L506.1001, L503.0106 #### [facility] [address] [place], [address] Mean corpuscular hemoglobin concentration (MCHC) determinationOrdered By: Ifrah Baker on 01-06-2025 MCHC (RBC) [Mass/Vol] 31.3 g/dL Low 32-36 [facility] Comment on above: Order Comment: 408.2 Performed By: #### L 100.0500, L501.9520, L506.1001, L503.0106 #### [facility] [address] [place], [place], [address] Mean platelet volume determi nationOrdered By: Ifrah Baker on 01-06-2025 Platelet mean volume (Bld) [Entitic vol] 11.8 fL Normal 6.2-12.0 [facility] Comment on above: Order Comment: 408.2 Performed By: #### L 100.0500, L501.9520, L506.1001, L503.0106 #### [facility] [address] [place], [place], [address] Platelet countOrdered By: Shaun Baker on 01-06-2025 Platelets (Bld) [#/Vol] 210 10*3/uL Normal 150-450 [facility] Comment on above: Order Comment: 408.2 Performed By: #### L 100.0500, L501.9520, L506.1001, L503.0106 #### [facility] [address] [place], [address] TSH DL <= 0.005 mIU/L QnOrde red By: Ifrah Baker on 01-06-2025 TSH Qn 2.250 uIU/mL 0.300-4.200 [facility] Thyroid Stim Hormone (TSH)on 01-06-2025 TSH 2.250 uIU/mL Normal 0.300-4.200 [facility] Comment on above: Order Comment: 408.2 Performed By: #### L 100.0500, L501.9520, L506.1001, L503.0106 #### [facility] [address] [place], [address] Vitamin B12on 01-06-2025 Cobalamin (Vitamin B12) [Mass/Vol] 3227 pg/mL High 180-914 [facility] Comment on above: Order Comment: 408.2 Performed By: #### L 100.0500, L501.9520, L506.1001, L503.0106 #### [facility] Laboratory [address] [place], [place], [id number] Vitamin B12 ser/plasOrdered By: Ifrah Baker on 01-06-2025 Cobalamin (Vitamin B12) [Mass/Vol] 3227 pg/mL High 180-914 [facility] Vitamin D,25 Hydroxyon 01-06 Vitamin D 25-OH 27.9 ng/mL Low 30-100 [facility] Comment on above: Order Comment: 408.2 Result Comment: Kenyetta min D Status Deficiency: <20 ng/mL (50nmol/L) Insufficiency: 20-30 ng/mL (50-75 nmol/L) Sufficiency: 30-100 ng/mL (75-250 nmol/L) Toxicity: >100 ng/mL (>250 nmol/L) Performed By: #### L 100.0500, L501.9520, L506.1001, L503.0106 #### [facility] [address] [place], [address] White blood cell (WBC) count Ordered By: Ifrah Baker on 01-06-2025 WBC (Bld) [#/Vol] 7.1 10*3/uL Normal 4.4-11.0 [facility] Comment on above: Order Comment: 408.2 Performed By: #### L 100.0500, L501.9520, L506.1001, L503.0106 #### [facility] [address] [place], [address] TSH DL <= 0.005 mIU/L QnOrde red By: Ifrah Baker on 12-09-2024 TSH Qn 3.680 uIU/mL 0.300-4.200 [facility] Thyroid Stim Hormone (TSH)on 12-09-2024 TSH 3.680 uIU/mL Normal 0.300-4.200 [facility] Comment on above: Order Comment: 408.2 Performed By: #### L 100.0500, L501.9520, L506.1001, L503.0106 #### [facility] [address] [place], [place], [address] Cardiology Visit Reporton Cardiology Visit Report [facility] [address] [place], [place] [address] OFFICE VISIT Date of Service: 10/30/24 MR#: [id number] Acct: [id number] Name: LETTY LEON Rep #: [id number] : 1940 Provider: HAO Herrera Age/Sex: 84/F [place] [facility] [place] Status: Signed HPI HPI History of [...] poor historian. She is now residing at [facility]. [employer] does not have any concerns. PPM interrogation [...] Visit Reasons: 1 Y FU/BLACK @ 10 [employer] Dis[employer] Required: No Is patient in pain?: No [...] JVD C (more content not included)... Normal [facility] Pacemaker Checkon 10-30-[address] [facility] [place] [facility] [address] [place], [place] [address]ga[address] [place] [address] Pacemaker Check Date of Service: 10/30/24 1416 MR#: [id number] Acct: [id number] Name: LETTY LEON Rep #: [id number] : 1940 From: Kavya Ramos Age/Sex: 84/F Location: [facility] [place] Status: Signed Assessment and Plan Assessment and Plan (1) Presence of permanent cardiac pacemaker: Status: Acute Comment: IMPLANTED DEVICE(S): PPM Ventricular lead - Back Shoe Cutter: St Vern, Model # Tendril STS 2088TC-58 , Serial # [id number] PPM Atrial lead - Back Shoe Cutter: St Vern, Model # Tendril STS 2088TC-52 , Serial # [id number] PPM Generator - Back Shoe Cutter: St Vern, Model # Assurity MRI [id number] , Serial # [id number] (2) PAF (paroxysmal atrial fibrillation): Status: Acute (3) Sick sinus syndrome due to SA node dysfunction: Status: Acute 10/30/24 1416 Date Kavya Ramos Cosigner Signature: Date (if applicable) CC: Normal [facility] CBC W/Diff, Automatedon 11-0 -2023 Absolute Lymph 0.97 X10 3/uL Normal 0.83-4.51 [facility] Comment on above: Performed By: #### L 100.0500, L501.9520, L506.1001, L503.0106 #### [facility] [address] [place], [address] Absolute Neut 2.1 X10 3/uL Normal 2.0-7.7 [facility] Comment on above: Performed By: #### L 100.0500, L501.9520, L506.1001, L503.0106 #### [facility] [address] [place], [address] Basophils/100 WBC (Bld) 0.5 % Normal 0-1 [facility] Comment on above: Performed By: #### L 100.0500, L501.9520, L506.1001, L503.0106 #### [facility] [address] [place], [address] Eosinophils/100 WBC (Bld) 13.7 % High 0-5 [facility] Comment on above: Performed By: #### L 100.0500, L501.9520, L506.1001, L503.0106 #### [facility] [address] [place], [address] Erythrocyte distribution width (RBC) [Ratio] 13.6 % Normal 11.6-14.6 [facility] Comment on above: Performed By: #### L 100.0500, L501.9520, L506.1001, L503.0106 #### [facility] [address] [place], [address] Hematocrit (Bld) [Volume fraction] 32.9 % Low 37-47 [facility] Comment on above: Performed By: #### L 100.0500, L501.9520, L506.1001, L503.0106 #### [facility] [address] [place], [address] Hemoglobin (Bld) [Mass/Vol] 10.5 g/dL Low 12.0-15.0 [facility] Comment on above: Performed By: #### L 100.0500, L501.9520, L506.1001, L503.0106 #### [facility] [address] [place], [address] IG% 0.200 Normal 0.0-0.9 [facility] Comment on above: Result Comment: IG% - Immature Granulocytes (promyelocytes, myelocytes and metamyelocytes) > 1% indicates that a LEFT SHIFT is Present. Performed By: #### L 100.0500, L501.9520, L506.1001, L503.0106 #### [facility] [address] [place], [address] Lymphocytes/100 WBC (Bld) 23.8 % Normal 19-41 [facility] Comment on above: Performed By: #### L 100.0500, L501.9520, L506.1001, L503.0106 #### [facility] [address] [place], [address] MCH (RBC) [Entitic mass] 30.7 pg Normal 27.0-32.0 [facility] Comment on above: Performed By: #### L 100.0500, L501.9520, L506.1001, L503.0106 #### [facility] [address] [place], [address] MCHC (RBC) [Mass/Vol] 31.9 g/dL Low 32-36 [facility] Comment on above: Performed By: #### L 100.0500, L501.9520, L506.1001, L503.0106 #### [facility] [address] [place], [address] MCV (RBC) [Entitic vol] 96.2 fL Normal 81-99 [facility] Comment on above: Performed By: #### L 100.0500, L501.9520, L506.1001, L503.0106 #### [facility] [address] [place], [address] Monocytes/100 WBC (Bld) 11.5 % High 0-10 [facility] Comment on above: Performed By: #### L 100.0500, L501.9520, L506.1001, L503.0106 #### [facility] [address] [place], [address] Neutrophils/100 WBC (Bld) 50.3 % Normal 47-70 [facility] Comment on above: Performed By: #### L 100.0500, L501.9520, L506.1001, L503.0106 #### [facility] [address] [place], [address] Nucleated RBC (Bld) [#/Vol] 0 10*3/uL Normal 0-5 [facility] Comment on above: Performed By: #### L 100.0500, L501.9520, L506.1001, L503.0106 #### [facility] [address] [place], [address] Platelet mean volume (Bld) [Entitic vol] 11.6 fL Normal 6.2-12.0 [facility] Comment on above: Performed By: #### L 100.0500, L501.9520, L506.1001, L503.0106 #### [facility] [address] [place], [address] Platelets (Bld) [#/Vol] 178 10*3/uL Normal 150-450 [facility] Comment on above: Performed By: #### L 100.0500, L501.9520, L506.1001, L503.0106 #### [facility] [address] [place], [address] RBC (Bld) [#/Vol] 3.42 10*6/uL Low 4.2-5.4 [facility] Comment on above: Performed By: #### L 100.0500, L501.9520, L506.1001, L503.0106 #### [facility] [address] [place], [address] RDW SD 48.0 fl High 35.1-43.9 [facility] Comment on above: Performed By: #### L 100.0500, L501.9520, L506.1001, L503.0106 #### [facility] [address] [place], [address] WBC (Bld) [#/Vol] 4.1 10*3/uL Low 4.4-11.0 [facility] Comment on above: Performed By: #### L 100.0500, L501.9520, L506.1001, L503.0106 #### [facility] [address] [place], [address] Comprehensive Metabolic Prof ilon 06-30-2024 Albumin [Mass/Vol] 2.9 g/dL Low 3.2-5.0 [facility] Comment on above: Performed By: #### L 100.0500, L501.9520, L506.1001, L503.0106 #### [facility] [address] [place], [address] Albumin/Globulin [Mass ratio] 1.0 {ratio} Normal 0.9-2.4 [facility] Comment on above: Performed By: #### L 100.0500, L501.9520, L506.1001, L503.0106 #### [facility] [address] [place], [address] ALK P 119 U/L High 45-117 [facility] Comment on above: Performed By: #### L 100.0500, L501.9520, L506.1001, L503.0106 #### [facility] [address] [place], [address] ALT [Catalytic activity/Vol] 19 U/L Normal 13-56 [facility] Comment on above: Performed By: #### L 100.0500, L501.9520, L506.1001, L503.0106 #### [facility] [address] [place], [address] AST [Catalytic activity/Vol] 17 U/L Normal 15-37 [facility] Comment on above: Performed By: #### L 100.0500, L501.9520, L506.1001, L503.0106 #### [facility] [address] [place], [address] Bilirubin [Mass/Vol] 0.60 mg/dL Normal 0.20-1.00 [facility] Comment on above: Result Comment: For patients on eltrombopag therapy, use of Dimension [place] TBIL is not recommended. Performed By: #### L 100.0500, L501.9520, L506.1001, L503.0106 #### [facility] [address] [place], [address] BUN/CRE 25.8 RATIO High 10-20 [facility] Comment on above: Performed By: #### L 100.0500, L501.9520, L506.1001, L503.0106 #### [facility] [address] [place], [address] CA,Total 8.5 mg/dL Normal 8.5-10.1 [facility] Comment on above: Performed By: #### L 100.0500, L501.9520, L506.1001, L503.0106 #### [facility] [address] [place], [address] Chloride [Moles/Vol] 112 mmol/L High 98-107 [facility] Comment on above: Performed By: #### L 100.0500, L501.9520, L506.1001, L503.0106 #### [facility] [address] [place], [address] CO2 [Moles/Vol] 27.0 mmol/L Normal 21.0-32.0 [facility] Comment on above: Performed By: #### L 100.0500, L501.9520, L506.1001, L503.0106 #### [facility] [address] [place], [address] Creatinine [Mass/Vol] 1.24 mg/dL High 0.55-1.02 [facility] Comment on above: Result Comment: The validity of the calculated GFR GFRAA in patients over 70 years has not been determined. Clinical correlation is essential. Performed By: #### L 100.0500, L501.9520, L506.1001, L503.0106 #### [facility] [address] [place], [address] EST GFR - AA 53 mL/min Low >60 [facility] Comment on above: Result Comment: Afri can Ukrainian GFR Calc Performed By: #### L 100.0500, L501.9520, L506.1001, L503.0106 #### [facility] [address] [place], [address] GAP 5 Normal 5-15 [facility] Comment on above: Performed By: #### L 100.0500, L501.9520, L506.1001, L503.0106 #### [facility] [address] [place], [address] GFR/1.73 sq M.predicted among non-blacks MDRD (S/P/Bld) [Vol rate/Area] 44 mL/min/{1.73_m2} Low >60 [facility] Comment on above: Result Comment: Non- GFR Calc Performed By: #### L 100.0500, L501.9520, L506.1001, L503.0106 #### [facility] [address] [place], [address] Globulin (S) [Mass/Vol] 3.0 g/dL Normal 2.2-4.2 [facility] Comment on above: Performed By: #### L 100.0500, L501.9520, L506.1001, L503.0106 #### [facility] [address] [place], [address] Glucose [Mass/Vol] 77 mg/dL Normal 74-106 [facility] Comment on above: Performed By: #### L 100.0500, L501.9520, L506.1001, L503.0106 #### [facility] [address] [place], [address] Potassium [Moles/Vol] 4.2 mmol/L Normal 3.5-5.1 [facility] Comment on above: Performed By: #### L 100.0500, L501.9520, L506.1001, L503.0106 #### [facility] [address] [place], [address] Sodium [Moles/Vol] 143 mmol/L Normal 136-145 [facility] Comment on above: Performed By: #### L 100.0500, L501.9520, L506.1001, L503.0106 #### [facility] [address] [place], [address] T PROT 5.9 g/dL Low 6.4-8.2 [facility] Comment on above: Performed By: #### L 100.0500, L501.9520, L506.1001, L503.0106 #### [facility] [address] [place], [address] Urea nitrogen [Mass/Vol] 32 mg/dL High 7-18 [facility] Comment on above: Performed By: #### L 100.0500, L501.9520, L506.1001, L503.0106 #### [facility] [address] [place], [address] Basophil percentageOrdered B y: Ifrah Baker on 11-05-2023 Bilirubin [Mass/Vol] 0.60 mg/dL 0.20-1.00 [facility] Comment on above: For patients on eltr ombopag therapy, use of Dimension [place] TBIL is not recommended. Chloride [Moles/Vol] 110 mmol/L 98-107 [facility] Cholesterol [Mass/Vol] 122 mg/dL <200 [facility] Comment on above: <200 mg/dL Desirable 200-240 mg/dL Borderline >240 mg/dL High Risk Glucose [Mass/Vol] 88 mg/dL 74-106 [facility] Hemoglobin (Bld) [Mass/Vol] 11.7 g/dL 12.0-15.0 [facility] Potassium [Moles/Vol] 4.4 mmol/L 3.5-5.1 [facility] Protein [Mass/Vol] 6.3 g/dL 6.4-8.2 [facility] Sodium [Moles/Vol] 143 mmol/L 136-145 [facility] Triglyceride [Mass/Vol] 60 mg/dL <199 [facility] Comment on above: The drugs N-Acetylcy steine and Metamizole may falsely depress this assay.Serum Triglycerides Reference Interval Normal <150 mg/dL Borderline high 150 - 199 mg/dL High 200 - 499 mg/dL Very High > or = 500 mg/dL WBC (Bld) [#/Vol] 4.6 10*3/uL 4.4-11.0 [facility] Determination of erythrocyte mean corpuscular volume (MCV)Ordered By: Ifrah Baker on 11-05-2023 MCV (RBC) [Entitic vol] 98.7 fL 81-99 [facility] Erythrocyte distribution wid th ratioOrdered By: Ifrah Baker on 11-05-2023 Erythrocyte distribution width (RBC) [Ratio] 13.1 % 11.6-14.6 [facility] Erythrocyte distribution wid th standard deviationOrdered By: Ifrah Baker on 11-05-2023 Erythrocyte distribution width (RBC) [Entitic vol] 47.3 fL 35.1-43.9 [facility] Hematocrit Auto (Bld) [Volum e fraction]Ordered By: Ifrah Baker on 11-05-2023 Hematocrit (Bld) [Volume fraction] 37.7 % 37-47 [facility] - Chemistry and C hemistry - challengeOrdered By: Ifrah Baker on 11-05-2023 Albumin/Globulin [Mass ratio] 1.1 {ratio} 0.9-2.4 [facility] ALP [Catalytic activity/Vol] 113 U/L 45-117 [facility] ALT [Catalytic activity/Vol] 24 U/L 13-56 [facility] Cholesterol in HDL [Mass/Vol] 54 mg/dL >40 [facility] Comment on above: The drugs N-Acetylcy steine and Metamizole may falsely depress this assay. Reference Range HDL <40 mg/dL Low HDL Cholesterol HDL >or= 60 mg/dL High HDL Cholesterol Cholesterol in LDL [Mass/Vol] 56 mg/dL 0-130 [facility] CO2 [Moles/Vol] 24.0 mmol/L 21.0-32.0 [facility] Globulin (S) [Mass/Vol] 3.0 g/dL 2.2-4.2 [facility] Urea nitrogen/Creatinine [Mass ratio] 25.2 mg/mg 10-20 [facility] - Hematology and Cell countsOrdered By: Ifrah Baker on 11-05-2023 MCH (RBC) [Entitic mass] 30.6 pg 27.0-32.0 [facility] MCHC (RBC) [Mass/Vol] 31.0 g/dL 32-36 [facility] Platelet mean volume (Bld) [Entitic vol] 11.2 fL 6.2-12.0 [facility] Platelets (Bld) [#/Vol] 181 10*3/uL 150-450 [facility] No Panel InformationOrdered By: Ifrah Baker on 11-05-2023 Estimated GFR (MDRD) Amer 58 mL/min >60 [facility] Comment on above: GFR Calc Estimated GFR (MDRD) Non-Af Amer 48 mL/min >60 [facility] Comment on above: Non- GFR Calc Vitamin D 25-Hydroxy 43.3 ng/mL [facility] Comment on above: Vitamin D 25(OH) Sta tus Range Deficiency <20 ng/mL (50nmol/L) Insufficiency 20 - 30 ng/mL (50 - 75 nmol/L) Sufficiency 30 - 100 ng/mL (75 - 250 nmol/L) Toxicity >100 ng/mL (>250 nmol/L) VLDL Cholesterol 12 mg/dL 5-40 [facility] RBC Auto (Bld) [#/Vol]Ordere d By: Ifrah Baker on 11-05-2023 RBC (Bld) [#/Vol] 3.82 10*6/uL 4.2-5.4 [facility] Serum or plasma calcium enrique urement (mass/volume)Ordered By: Ifrah Baker on 11-05-2023 Calcium [Mass/Vol] 8.8 mg/dL 8.5-10.1 [facility] Serum or plasma creatinine m easurement (mass/volume)Ordered By: Ifrah Baker on 11-05-2023 Creatinine [Mass/Vol] 1.15 mg/dL 0.55-1.02 [facility] Comment on above: The validity of the calculated GFR & GFRAA in patients over 70 years has not been determined. Clinical correlation is essential. Serum or plasma thyroid stim ulating hormone (TSH) measurement (units/volume)Ordered By: Ifrah Baker on 11-05-2023 TSH Qn 3.71 uIU/mL 0.358-3.74 [facility] Serum or plasma urea nitroge n measurement (mass/volume)Ordered By: Ifrah Baker on 11-05-2023 Urea nitrogen [Mass/Vol] 29 mg/dL 7-18 [facility] Thin prep Papanicolaou smear with manual screeningOrdered By: Ifrah Baker on 11-05-2023 Thin prep Papanicolaou smear with manual screening 3.3 g/dL 3.2-5.0 [facility] Thin prep Papanicolaou smear with manual screening 19 U/L 15-37 [facility] Thin prep Papanicolaou smear with manual screening 9 5-15 [facility] Whole blood hemoglobin A1c/t otal hemoglobin ratio (mass fraction)Ordered By: Ifrah Bakre on 11-05-2023 HbA1c (Bld) [Mass fraction] 5.5 % 3.8-5.6 [facility] Comment on above: Normal < 5.7 % Predi abetic 5.7 - 6.4 % Diabetic >or= 6.5 % Please note range changes. Serum or plasma uric acid me asurement (mass/volume)Ordered By: Ifrah Baker on 06-20-2023 Urate [Mass/Vol] 5.3 mg/dL 2.6-6.0 [facility] Comment on above: The drugs N-Acetylcy steine and Metamizole may falsely depress this assay. Absolute lymphocyte countOrd ered By: Edwin Nath on 05-29-2023 Lymphocytes Auto (Unsp spec) [#/Vol] 1.25 10*3/uL 0.83-4.51 [facility] Basophil percentageOrdered B y: Edwin Nath on 05-29-2023 Basophils/100 WBC (Bld) 0.7 % 0-1 [facility] Chloride [Moles/Vol] 108 mmol/L 98-107 [facility] Eosinophils/100 WBC (Bld) 4.2 % 0-5 [facility] Glucose [Mass/Vol] 102 mg/dL 74-106 [facility] Comment on above: Fasting Glucose resu lt from 100 to 125 mg/dL suggests IMPAIRED HOMEOSTASIS per A.D.A. criteria. Neutrophils (Bld) [#/Vol] 3.6 10*3/uL 2.0-7.7 [facility] Neutrophils/100 WBC (Bld) 62.6 % 47-70 [facility] Potassium [Moles/Vol] 4.2 mmol/L 3.5-5.1 [facility] Sodium [Moles/Vol] 140 mmol/L 136-145 [facility] WBC (Bld) [#/Vol] 5.8 10*3/uL 4.4-11.0 [facility] Blood erythrocytes count (nu mber/volume)Ordered By: Edwin Nath on 05-29-2023 RBC (Bld) [#/Vol] 4.05 10*6/uL 4.2-5.4 [facility] Blood hemoglobin measurement (mass/volume)Ordered By: Edwin Nath on 05-29-2023 Hemoglobin (Bld) [Mass/Vol] 12.4 g/dL 12.0-15.0 [facility] Blood lymphocytes/100 leukoc ytesOrdered By: Edwin Nath on 05-29-2023 Lymphocytes/100 WBC (Bld) 21.7 % 19-41 [facility] Blood monocytes/100 leukocyt esOrdered By: Edwin Nath on 05-29-2023 Monocytes/100 WBC (Bld) 10.6 % 0-10 [facility] Blood platelet mean volumeOr dered By: Edwin Nath on 05-29-2023 Platelet mean volume (Bld) [Entitic vol] 10.6 fL 6.2-12.0 [facility] Determination of erythrocyte mean corpuscular volume (MCV)Ordered By: Edwin Nath on 05-29-2023 MCV (RBC) [Entitic vol] 96.3 fL 81-99 [facility] Hematocrit Auto (Bld) [Volum e fraction]Ordered By: Edwin Nath on 05-29-2023 Hematocrit (Bld) [Volume fraction] 39.0 % 37-47 [facility] - Chemistry and C hemistry - challengeOrdered By: Edwin Nath on 05-29-2023 CO2 [Moles/Vol] 29.0 mmol/L 21.0-32.0 [facility] Urea nitrogen/Creatinine [Mass ratio] 28.0 mg/mg 10-20 [facility] - Hematology and Cell countsOrdered By: Edwin Nath on 05-29-2023 Erythrocyte distribution width (RBC) [Entitic vol] 47.4 fL 35.1-43.9 [facility] Erythrocyte distribution width (RBC) [Ratio] 13.2 % 11.6-14.6 [facility] Immature granulocytes/100 WBC (Bld) 0.200 % 0.0-0.9 [facility] Comment on above: IG% - Immature Granu locytes (promyelocytes, myelocytes and metamyelocytes) > 1% indicates that a LEFT SHIFT is Present. MCH (RBC) [Entitic mass] 30.6 pg 27.0-32.0 [facility] Nucleated RBC/100 WBC (Bld) [Ratio] 0 % 0-5 [facility] MCHC Auto (RBC) [Mass/Vol]Or dered By: Edwin Nath on 05-29-2023 MCHC (RBC) [Mass/Vol] 31.8 g/dL 32-36 [facility] No Panel InformationOrdered By: Edwin Nath on 05-29-2023 Estimated Creatinine Clearance Calc 37.09 ml/min [facility] Estimated GFR (MDRD) Amer 56 mL/min >60 [facility] Comment on above: GFR Calc Estimated GFR (MDRD) Non-Af Amer 46 mL/min >60 [facility] Comment on above: Non- GFR Calc Platelets bldOrdered By: Trent Nath on 05-29-2023 Platelets (Bld) [#/Vol] 205 10*3/uL 150-450 [facility] Serum or plasma calcium enrique urement (mass/volume)Ordered By: Edwin Nath on 05-29-2023 Calcium [Mass/Vol] 8.6 mg/dL 8.5-10.1 [facility] Serum or plasma creatinine m easurement (mass/volume)Ordered By: Edwin Nath on 05-29-2023 Creatinine [Mass/Vol] 1.18 mg/dL 0.55-1.02 [facility] Comment on above: The validity of the calculated GFR & GFRAA in patients over 70 years has not been determined. Clinical correlation is essential. Serum or plasma urea nitroge n measurement (mass/volume)Ordered By: Edwin Nath on 05-29-2023 Urea nitrogen [Mass/Vol] 33 mg/dL 7-18 [facility] Thin prep Papanicolaou smear with manual screeningOrdered By: Edwin Nath on 05-29-2023 Thin prep Papanicolaou smear with manual screening 3 5-15 [facility] Absolute lymphocyte countOrd ered By: Dominguez Albert on 03-01-2023 Lymphocytes Auto (Unsp spec) [#/Vol] 1.28 10*3/uL 0.83-4.51 [facility] Basophil percentageOrdered B y: Dominguez Albert on 03-01-2023 Potassium [Moles/Vol] 4.2 mmol/L 3.5-5.1 [facility] Basophils/100 WBC (Bld) 0.5 % 0-1 [facility] Chloride [Moles/Vol] 109 mmol/L 98-107 [facility] Eosinophils/100 WBC (Bld) 5.3 % 0-5 [facility] Glucose [Mass/Vol] 96 mg/dL 74-106 [facility] Neutrophils (Bld) [#/Vol] 3.8 10*3/uL 2.0-7.7 [facility] Neutrophils/100 WBC (Bld) 61.5 % 47-70 [facility] Sodium [Moles/Vol] 140 mmol/L 136-145 [facility] WBC (Bld) [#/Vol] 6.2 10*3/uL 4.4-11.0 [facility] Blood erythrocytes count (nu mber/volume)Ordered By: Dominguez Albert on 03-01-2023 RBC (Bld) [#/Vol] 3.54 10*6/uL 4.2-5.4 [facility] Blood hemoglobin measurement (mass/volume)Ordered By: Dominguez Albert on 03-01-2023 Hemoglobin (Bld) [Mass/Vol] 11.2 g/dL 12.0-15.0 [facility] Blood lymphocytes/100 leukoc ytesOrdered By: Dominguez Albert on 03-01-2023 Lymphocytes/100 WBC (Bld) 20.6 % 19-41 [facility] Blood monocytes/100 leukocyt esOrdered By: Dominguez Albert on 03-01-2023 Monocytes/100 WBC (Bld) 11.6 % 0-10 [facility] Blood platelet mean volumeOr dered By: Dominguez Albert on 03-01-2023 Platelet mean volume (Bld) [Entitic vol] 11.1 fL 6.2-12.0 [facility] Determination of erythrocyte mean corpuscular volume (MCV)Ordered By: Dominguez Albert on 03-01-2023 MCV (RBC) [Entitic vol] 102.8 fL 81-99 [facility] Hematocrit Auto (Bld) [Volum e fraction]Ordered By: Dominguez Albert on 03-01-2023 Hematocrit (Bld) [Volume fraction] 36.4 % 37-47 [facility] - Chemistry and C hemistry - challengeOrdered By: Dominguez Albert on 03-01-2023 CO2 [Moles/Vol] 27.0 mmol/L 21.0-32.0 [facility] Urea nitrogen/Creatinine [Mass ratio] 29.5 mg/mg 10-20 [facility] - Hematology and Cell countsOrdered By: Dominguez Albert on 03-01-2023 Erythrocyte distribution width (RBC) [Entitic vol] 47.9 fL 35.1-43.9 [facility] Erythrocyte distribution width (RBC) [Ratio] 12.5 % 11.6-14.6 [facility] Immature granulocytes/100 WBC (Bld) 0.500 % 0.0-0.9 [facility] Comment on above: IG% - Immature Granu locytes (promyelocytes, myelocytes and metamyelocytes) > 1% indicates that a LEFT SHIFT is Present. MCH (RBC) [Entitic mass] 31.6 pg 27.0-32.0 [facility] Nucleated RBC/100 WBC (Bld) [Ratio] 0 % 0-5 [facility] MCHC Auto (RBC) [Mass/Vol]Or dered By: Dominguez Albert on 03-01-2023 MCHC (RBC) [Mass/Vol] 30.8 g/dL 32-36 [facility] No Panel InformationOrdered By: Dominguez Albert on 03-01-2023 Troponin I High Sensitivity 5 pg/mL 3.0-54.0 [facility] Comment on above: Please Note: [place] t Units and Gender Specific Reference Ranges. For more information see Policy Stat Procedure [place] High Sensitivity Troponin (TNIH) and attachments. D-Dimer Quantitative (PE/DVT) 0.97 FEU/ug/m 0.27-0.49 [facility] Comment on above: CRITICAL VALUE VERIF IED. CALLED TO ANTHONY SO RN 03/01/232106 Enio Arvizu.RESULTS READ BACK BY SAME . D-Dimer ELEVATED (>0.49): Additional studies and clinicalassessments are indicated to conclude diagnosis of:Deep Vein Thrombosis (DVT) or Pulmonary Embolism (PE) Estimated Creatinine Clearance Calc 33.93 ml/min [facility] Estimated GFR (MDRD) Amer 51 mL/min >60 [facility] Comment on above: GFR Calc Estimated GFR (MDRD) Non-Af Amer 42 mL/min >60 [facility] Comment on above: Non- GFR Calc Platelets bldOrdered By: Goran Albert on 03-01-2023 Platelets (Bld) [#/Vol] 163 10*3/uL 150-450 [facility] Serum or plasma calcium enrique urement (mass/volume)Ordered By: Dominguez Albert on 03-01-2023 Calcium [Mass/Vol] 8.8 mg/dL 8.5-10.1 [facility] Serum or plasma creatinine m easurement (mass/volume)Ordered By: Dominguez Albert on 03-01-2023 Creatinine [Mass/Vol] 1.29 mg/dL 0.55-1.02 [facility] Comment on above: The validity of the calculated GFR & GFRAA in patients over 70 years has not been determined. Clinical correlation is essential. Serum or plasma urea nitroge n measurement (mass/volume)Ordered By: Dominguez Albert on 03-01-2023 Urea nitrogen [Mass/Vol] 38 mg/dL 7-18 [facility] Thin prep Papanicolaou smear with manual screeningOrdered By: Dominguez Albert on 03-01-2023 Thin prep Papanicolaou smear with manual screening 4 5-15 [facility] Absolute lymphocyte countOrd ered By: Ifrah Baker on 01-01-2023 Lymphocytes Auto (Unsp spec) [#/Vol] 1.07 10*3/uL 0.83-4.51 [facility] Basophil percentageOrdered B y: Ifrah Baker on 01-01-2023 Basophils/100 WBC (Bld) 0.4 % 0-1 [facility] Chloride [Moles/Vol] 111 mmol/L 98-107 [facility] Eosinophils/100 WBC (Bld) 6.8 % 0-5 [facility] Glucose [Mass/Vol] 77 mg/dL 74-106 [facility] Neutrophils (Bld) [#/Vol] 4.8 10*3/uL 2.0-7.7 [facility] Neutrophils/100 WBC (Bld) 69.2 % 47-70 [facility] Potassium [Moles/Vol] 4.6 mmol/L 3.5-5.1 [facility] Sodium [Moles/Vol] 143 mmol/L 136-145 [facility] WBC (Bld) [#/Vol] 6.9 10*3/uL 4.4-11.0 [facility] Blood erythrocytes count (nu mber/volume)Ordered By: Ifrah Baker on 01-01-2023 RBC (Bld) [#/Vol] 3.55 10*6/uL 4.2-5.4 [facility] Blood hemoglobin measurement (mass/volume)Ordered By: Ifrah Baker on 01-01-2023 Hemoglobin (Bld) [Mass/Vol] 11.2 g/dL 12.0-15.0 [facility] Blood lymphocytes/100 leukoc ytesOrdered By: Ifrah Baker on 01-01-2023 Lymphocytes/100 WBC (Bld) 15.4 % 19-41 [facility] Blood monocytes/100 leukocyt esOrdered By: Ifrah Baker on 01-01-2023 Monocytes/100 WBC (Bld) 7.9 % 0-10 [facility] Blood platelet mean volumeOr dered By: Ifrah Baker on 01-01-2023 Platelet mean volume (Bld) [Entitic vol] 11.3 fL 6.2-12.0 [facility] Determination of erythrocyte mean corpuscular volume (MCV)Ordered By: Ifrah Baker on 01-01-2023 MCV (RBC) [Entitic vol] 98.9 fL 81-99 [facility] Hematocrit Auto (Bld) [Volum e fraction]Ordered By: Ifrah Baker on 01-01-2023 Hematocrit (Bld) [Volume fraction] 35.1 % 37-47 [facility] - Chemistry and C hemistry - challengeOrdered By: Ifrah Baker on 01-01-2023 CO2 [Moles/Vol] 25.0 mmol/L 21.0-32.0 [facility] Urea nitrogen/Creatinine [Mass ratio] 29.5 mg/mg 10-20 [facility] - Hematology and Cell countsOrdered By: Ifrah Baker on 01-01-2023 Erythrocyte distribution width (RBC) [Entitic vol] 50.4 fL 35.1-43.9 [facility] Erythrocyte distribution width (RBC) [Ratio] 13.8 % 11.6-14.6 [facility] Immature granulocytes/100 WBC (Bld) 0.300 % 0.0-0.9 [facility] Comment on above: IG% - Immature Granu locytes (promyelocytes, myelocytes and metamyelocytes) > 1% indicates that a LEFT SHIFT is Present. MCH (RBC) [Entitic mass] 31.5 pg 27.0-32.0 [facility] Nucleated RBC/100 [facility] (Bld) [Ratio] 0 % 0-[address] [facility] [address] ([facility]) [Mass/Vol]Or dered By: Ifrah Baker on 01-01-2023 MCHC (RBC) [Mass/Vol] 31.9 g/dL 32-36 [facility] No Panel InformationOrdered By: Ifrah Baker on 01-01-2023 Estimated GFR (MDRD) Amer 64 mL/min >60 [facility] Comment on above: GFR Calc Estimated GFR (MDRD) Non-Af Amer 53 mL/min >60 [facility] Comment on above: Non- GFR Calc Platelets bldOrdered By: Brandy Baker on 01-01-2023 Platelets (Bld) [#/Vol] 205 10*3/uL 150-450 [facility] Serum or plasma calcium enrique urement (mass/volume)Ordered By: Ifrah Baker on 01-01-2023 Calcium [Mass/Vol] 9.0 mg/dL 8.5-10.1 [facility] Serum or plasma creatinine m easurement (mass/volume)Ordered By: Ifrah Baker on 01-01-2023 Creatinine [Mass/Vol] 1.05 mg/dL 0.55-1.02 [facility] Comment on above: The validity of the calculated GFR & GFRAA in patients over 70 years has not been determined. Clinical correlation is essential. Serum or plasma urea nitroge n measurement (mass/volume)Ordered By: Ifrah Baker on 01-01-2023 Urea nitrogen [Mass/Vol] 31 mg/dL 7-18 [facility] Thin prep Papanicolaou smear with manual screeningOrdered By: Ifrah Baker on 01-01-2023 Thin prep Papanicolaou smear with manual screening 7 - [facility] CNPNon 10-09-2022 CNPN Telephone (FAMWS) LETTY LEON ([id number]) 1940 F Date Time Provider Department 10/09/22 KERI RADER During your visit today, we recorded the following information about you: Keri Rader, PSS 10/09/2022 2:04 PM Signed Patient's son was calling in to see if had filled out paperwork for patient to be admitted to [facility]. The long-term was supposed to fax over paperwork to office on 10/06/22. Patient has a deadline of due to medicare regulation. Please review and advise. Keri Rader, PSS October 09, 2022 2:04 PM Gavino Melendez [...] (Right) [C50.419] 08/03/2005 02/22/2009 SEROMA, POST OP [[id number]] 09/19/2005 02/22/2009 Essential hypertension [I10] 07/23/2006 Syncope [...] Status:Closed by TANYA ROJAS MA on 10/10/22 [facility] 10-05-2022 [facility] LET[facility] LEON ([id number]) 1940 F Date Time Provider Department 10/05/22 GAVINO MELENDEZ During your visit today, we recorded the following information about you: Tanya Rojas Ma 10/05/2022 4:54 PM Signed Type of letter/form/fax request - [facility] Admissions Form Form received from fax on 1 floor and placed on desk (Dr. Melendez) for completion. Completed form needs to be faxed to [facility]. Route to [facility] when form completed for processing Gavino Melendez MD 10/05/2022 5:35 PM Signed Form done; may send with last note, med list MD Emelia Fraser Ma 10/06/2022 8:29 AM Signed Last OV note printed and paperwork completed. This has been faxed to [phone]. Emelia Rodriguez Ma Allergies As of Date: 10/05/2022 Noted Allergy Reaction AMOXICILLIN 06/27/2005 4 - Hives DURICEF (CEFADROXIL) 06/27/2005 4 - Hives FLOXIN (OFLOXACIN) 06/27/2005 4 - Hives GRASS POLLEN 06/27/2005 PINE NEEDLE OIL 06/27/2005 Date Reviewed: 09/07/2022 Reviewed by: Emelia Rodriguez Ma - Fully Assessed Reason for Visit: Forms [163] Cmt: senior living admissions form for [facility] Prescriptions as of 10/06/2022 - busPIRone [...] (Right) [C50.419] 08/03/2005 02/22/2009 SEROMA, POST OP [[id number]] 09/19/2005 02/22/2009 Essential hypertension [I10] 07/23/2006 Syncope [...] Status:Closed by EMELIA RODRIGUEZ MA on 10/06/22 [facility] CNPNon 10-04-2022 CNPN Telephone (FAMPWS) CAROLYNLETTY Gatica ([id number]) 1940 F Date Time Provider Department 10/04/22 [facility] During your visit today, we recorded the following information about you: Anahi Moran RN 10/04/2022 10:13 AM Signed Patient's son calls and states that patient has been approved for medicaid. They have until 10/13/2022 to have her placed in a long-term. Son states that he had taken patient to [facility] to help get patient in the long-term per recommendations from [facility]. [facility] told son that he needed to contact PCP to get patient placed in long-term. Patient is requiring more help then family can give. Patient is getting more confused. Son asking if provider can help patient get into [facility]? Please give son a call back. Please review and advise, ROMA Swanson MD 10/05/2022 8:39 AM Signed I can give him an order for admission to long-term; he may need to contact the long-term and have them send the required paperwork here. MD Tanya Fraser Ma 10/05/2022 10:47 AM Signed Nima notified. He will contact long-term and have them send over paperwork. Tanya [...] (Right) [C50.419] 08/03/2005 02/22/2009 SEROMA, POST OP [[id number]] 09/19/2005 02/22/2009 Essential hypertension [I10] 07/23/2006 Syncope [...] Status:Closed by TANYA ROJAS [facility] on [facility]05/[facility] Telephone (FAMPWS) LETTY LEON ([id number]) 1940 F Date Time Provider Department 09/29/22 GAVINO MELENDEZ During your visit today, we [...] waiting on parts.. Please advise son. Carey Melendez MD 09/30/2022 8:23 AM Signed OK to go ahead and treat with three days of Bactrim as ordered MD Emelia Fraser Ma 10/02/2022 10:05 AM Signed Call to pt sonNima and notified him of below. He is heading to Pharmacy now and will pick up man. May have cleared up, but is picking [...] (Right) [C50.419] 08/03/2005 02/22/2009 SEROMA, POST OP [[id number]] 09/19/2005 02/22/2009 Essential hypertension [I10] 07/23/2006 Syncope [...] Status:Closed by EMELIA RODRIGUEZ MA on 10/02/22 [facility] CNOVon 09-07-2022 CNOV Office Visit (FAMPWS ) LETTY LEON ([id number]) 1940 F Date Time Provider Department 09/07/22 [...] here today with her son for a [place] discharge. Pt was admitted into [facility] due to UTI, low BP, Dementia and recurrent falls. Pt was admitted from 08/14/22 and was stable for discharge to SNF on 08/16/22. Pt recently discharged from [facility] on 09/03/22. Nima unsure what the patient did while in [place], Dr. Gann told him she looked good, [...] again. Nima spoke with WILMER Alcocer at [place] and they were ordering hospital bed and faxing it over to [employer] Past medical history, appointments, medications, allergies reviewed. Previous Medical History PAST MEDICAL HISTORY Diagnosis Date CKD (chronic kidney disease) stage 3, GFR 30-59 ml/min ([facility]) Diverticulosis of colon (without mention of hemorrhage) [...] [Cefadroxil] Hives Floxin [Ofloxacin] Hives Grass Pollen [employer] Current Medications Current Outpatient Medications [...] mcg (1 (more content not included)... Normal [facility] Basophil percentageOrdered B y: Nima Grover on 08-31-2022 Chloride [Moles/Vol] 109 mmol/L 98-107 [facility] Glucose [Mass/Vol] 97 mg/dL 74-106 [facility] Potassium [Moles/Vol] 4.8 mmol/L 3.5-5.1 [facility] Sodium [Moles/Vol] 142 mmol/L 136-145 [facility] WBC (Bld) [#/Vol] 5.0 10*3/uL 4.4-11.0 [facility] Blood erythrocytes count (nu mber/volume)Ordered By: Nima Grover on 08-31-2022 RBC (Bld) [#/Vol] 3.82 10*6/uL 4.2-5.4 [facility] Blood hemoglobin measurement (mass/volume)Ordered By: Nima Grover on 08-31-2022 Hemoglobin (Bld) [Mass/Vol] 11.8 g/dL 12.0-15.0 [facility] Blood platelet mean volumeOr dered By: Nima Grover on 08-31-2022 Platelet mean volume (Bld) [Entitic vol] 11.7 fL 6.2-12.0 [facility] Determination of erythrocyte mean corpuscular volume (MCV)Ordered By: Nima Grover on 08-31-2022 MCV (RBC) [Entitic vol] 98.4 fL 81-99 [facility] Hematocrit Auto (Bld) [Volum e fraction]Ordered By: Nima Grover on 08-31-2022 Hematocrit (Bld) [Volume fraction] 37.6 % 37-47 [facility] - Chemistry and C hemistry - challengeOrdered By: Nima Grover on 08-31-2022 CO2 [Moles/Vol] 28.0 mmol/L 21.0-32.0 [facility] Urea nitrogen/Creatinine [Mass ratio] 37.7 mg/mg 10-20 [facility] - Hematology and Cell countsOrdered By: Nima Grover on 08-31-2022 Erythrocyte distribution width (RBC) [Entitic vol] 46.1 fL 35.1-43.9 [facility] Erythrocyte distribution width (RBC) [Ratio] 12.8 % 11.6-14.6 [facility] MCH (RBC) [Entitic mass] 30.9 pg 27.0-32.0 [facility] MCHC Auto (RBC) [Mass/Vol]Or dered By: Nima Grover on 08-31-2022 MCHC (RBC) [Mass/Vol] 31.4 g/dL 32-36 [facility] No Panel InformationOrdered By: Nima Grover on 08-31-2022 Estimated GFR (MDRD) Amer 70 mL/min >60 [facility] Comment on above: GFR Calc Estimated GFR (MDRD) Non-Af Amer 58 mL/min >60 [facility] Comment on above: Non- GFR Calc Platelets bldOrdered By: Imani Grover on 08-31-2022 Platelets (Bld) [#/Vol] 191 10*3/uL 150-450 [facility] Serum or plasma calcium enrique urement (mass/volume)Ordered By: Nima Grover on 08-31-2022 Calcium [Mass/Vol] 8.6 mg/dL 8.5-10.1 [facility] Serum or plasma creatinine m easurement (mass/volume)Ordered By: Nima Grover on 08-31-2022 Creatinine [Mass/Vol] 0.98 mg/dL 0.55-1.02 [facility] Comment on above: The validity of the calculated GFR & GFRAA in patients over 70 years has not been determined. Clinical correlation is essential. Serum or plasma urea nitroge n measurement (mass/volume)Ordered By: Nima Grover on 08-31-2022 Urea nitrogen [Mass/Vol] 37 mg/dL 7-18 [facility] Thin prep Papanicolaou smear with manual screeningOrdered By: Nima Grover on 08-31-2022 Thin prep Papanicolaou smear with manual screening 5 5-15 [facility] Basophil percentageOrdered B y: Nima Grover on 08-24-2022 Chloride [Moles/Vol] 110 mmol/L 98-107 [facility] Glucose [Mass/Vol] 83 mg/dL 74-106 [facility] Potassium [Moles/Vol] 5.0 mmol/L 3.5-5.1 [facility] Sodium [Moles/Vol] 141 mmol/L 136-145 [facility] WBC (Bld) [#/Vol] 5.0 10*3/uL 4.4-11.0 [facility] Blood erythrocytes count (nu mber/volume)Ordered By: Nima Grover on 08-24-2022 RBC (Bld) [#/Vol] 3.82 10*6/uL 4.2-5.4 [facility] Blood hemoglobin measurement (mass/volume)Ordered By: Nima Grover on 08-24-2022 Hemoglobin (Bld) [Mass/Vol] 12.1 g/dL 12.0-15.0 [facility] Blood platelet mean volumeOr dered By: Nima Grover on 08-24-2022 Platelet mean volume (Bld) [Entitic vol] 11.1 fL 6.2-12.0 [facility] Determination of erythrocyte mean corpuscular volume (MCV)Ordered By: Nima Grover on 08-24-2022 MCV (RBC) [Entitic vol] 99.0 fL 81-99 [facility] Hematocrit Auto (Bld) [Volum e fraction]Ordered By: Nima Grover on 08-24-2022 Hematocrit (Bld) [Volume fraction] 37.8 % 37-47 [facility] - Chemistry and C hemistry - challengeOrdered By: Nima Grover on 08-24-2022 CO2 [Moles/Vol] 27.0 mmol/L 21.0-32.0 [facility] Urea nitrogen/Creatinine [Mass ratio] 21.4 mg/mg 10-20 [facility] - Hematology and Cell countsOrdered By: Nima Grover on 08-24-2022 Erythrocyte distribution width (RBC) [Entitic vol] 47.1 fL 35.1-43.9 [facility] Erythrocyte distribution width (RBC) [Ratio] 12.9 % 11.6-14.6 [facility] MCH (RBC) [Entitic mass] 31.7 pg 27.0-32.0 [facility] MCHC Auto (RBC) [Mass/Vol]Or dered By: Nima Grover on 08-24-2022 MCHC (RBC) [Mass/Vol] 32.0 g/dL 32-36 [facility] No Panel InformationOrdered By: Nima Grover on 08-24-2022 Estimated GFR (MDRD) Amer 66 mL/min >60 [facility] Comment on above: GFR Calc Estimated GFR (MDRD) Non-Af Amer 54 mL/min >60 [facility] Comment on above: Non- GFR Calc Platelets bldOrdered By: Imani Grover on 08-24-2022 Platelets (Bld) [#/Vol] 219 10*3/uL 150-450 [facility] Serum or plasma calcium enrique urement (mass/volume)Ordered By: Nima Grover on 08-24-2022 Calcium [Mass/Vol] 8.6 mg/dL 8.5-10.1 [facility] Serum or plasma creatinine m easurement (mass/volume)Ordered By: Nima Grover on 08-24-2022 Creatinine [Mass/Vol] 1.03 mg/dL 0.55-1.02 [facility] Comment on above: The validity of the calculated GFR & GFRAA in patients over 70 years has not been determined. Clinical correlation is essential. Serum or plasma urea nitroge n measurement (mass/volume)Ordered By: Nima Grover on 08-24-2022 Urea nitrogen [Mass/Vol] 22 mg/dL 7-18 [facility] Thin prep Papanicolaou smear with manual screeningOrdered By: Nima Grover on 08-24-2022 Thin prep Papanicolaou smear with manual screening 4 5-15 [facility] Basophil percentageOrdered B y: Nima Grover on 08-22-2022 Cholesterol [Mass/Vol] 111 mg/dL <200 [facility] Comment on above: <200 mg/dL Desirable 200-240 mg/dL Borderline >240 mg/dL High Risk Triglyceride [Mass/Vol] 62 mg/dL <199 [facility] Comment on above: The drugs N-Acetylcy steine and Metamizole may falsely depress this assay.Serum Triglycerides Reference Interval Normal <150 mg/dL Borderline high 150 - 199 mg/dL High 200 - 499 mg/dL Very High > or = 500 mg/dL No Panel InformationOrdered By: Nima Grover on 08-22-2022 Thyroid Stimulating Hormone (TSH) 0.34 uIU/mL 0.358-3.74 [facility] Vitamin D 25-Hydroxy 54.3 ng/mL [facility] Comment on above: Vitamin D 25(OH) Sta tus Range Deficiency <20 ng/mL (50nmol/L) Insufficiency 20 - 30 ng/mL (50 - 75 nmol/L) Sufficiency 30 - 100 ng/mL (75 - 250 nmol/L) Toxicity >100 ng/mL (>250 nmol/L) Serum or plasma cholesterol in HDL measurement (mass/volume)Ordered By: Nima Grover on 08-22-2022 Cholesterol in HDL [Mass/Vol] 43 mg/dL >40 [facility] Comment on above: The drugs N-Acetylcy steine and Metamizole may falsely depress this assay. Reference Range HDL <40 mg/dL Low HDL Cholesterol HDL >or= 60 mg/dL High HDL Cholesterol Serum or plasma cholesterol in VLDL measurement (mass/volume)Ordered By: Nima Grover on 08-22-2022 Cholesterol in VLDL [Mass/Vol] 12 mg/dL 5-40 [facility] Serum or plasma low density lipoprotein (LDL) cholesterol measurement (mass/volume)Ordered By: Nima Grover on 08-22-2022 Cholesterol in LDL [Mass/Vol] 56 mg/dL 0-130 [facility] - Microbiology an d Antimicrobial susceptibilityOrdered By: Dr. Rojas on 08-20-2022 Bacteria identified Cx Nom (Bld) No growth in [address] [facility] Basophil percentageOrdered B y: Nima Grover on 08-17-2022 Chloride [Moles/Vol] 113 mmol/L 98-107 [facility] Glucose [Mass/Vol] 97 mg/dL 74-106 [facility] Potassium [Moles/Vol] 4.2 mmol/L 3.5-5.1 [facility] Sodium [Moles/Vol] 144 mmol/L 136-145 [facility] WBC (Bld) [#/Vol] 4.4 10*3/uL 4.4-11.0 [facility] Blood erythrocytes count (nu mber/volume)Ordered By: Nima Grover on 08-17-2022 RBC (Bld) [#/Vol] 3.69 10*6/uL 4.2-5.4 [facility] Blood hemoglobin measurement (mass/volume)Ordered By: Nima Grover on 08-17-2022 Hemoglobin (Bld) [Mass/Vol] 11.3 g/dL 12.0-15.0 [facility] Blood platelet mean volumeOr dered By: Nima Grover on 08-17-2022 Platelet mean volume (Bld) [Entitic vol] 12.0 fL 6.2-12.0 [facility] Determination of erythrocyte mean corpuscular volume (MCV)Ordered By: Nima Grover on 08-17-2022 MCV (RBC) [Entitic vol] 97.0 fL 81-99 [facility] Hematocrit Auto (Bld) [Volum e fraction]Ordered By: Nima Grover on 08-17-2022 Hematocrit (Bld) [Volume fraction] 35.8 % 37-47 [facility] - Chemistry and C hemistry - challengeOrdered By: Nima Grover on 08-17-2022 CO2 [Moles/Vol] 27.0 mmol/L 21.0-32.0 [facility] Urea nitrogen/Creatinine [Mass ratio] 21.9 mg/mg 10-20 [facility] - Hematology and Cell countsOrdered By: Nima Grover on 08-17-2022 Erythrocyte distribution width (RBC) [Entitic vol] 46.3 fL 35.1-43.9 [facility] Erythrocyte distribution width (RBC) [Ratio] 12.9 % 11.6-14.6 [facility] MCH (RBC) [Entitic mass] 30.6 pg 27.0-32.0 [facility] MCHC Auto (RBC) [Mass/Vol]Or dered By: Nima Grover on 08-17-2022 MCHC (RBC) [Mass/Vol] 31.6 g/dL 32-36 [facility] No Panel InformationOrdered By: Nima Grover on 08-17-2022 Estimated GFR (MDRD) Amer 80 mL/min >60 [facility] Comment on above: GFR Calc Estimated GFR (MDRD) Non-Af Amer 66 mL/min >60 [facility] Comment on above: Non- GFR Calc Platelets bldOrdered By: Imani Grover on 08-17-2022 Platelets (Bld) [#/Vol] 170 10*3/uL 150-450 [facility] Serum or plasma calcium enrique urement (mass/volume)Ordered By: Nima Grover on 08-17-2022 Calcium [Mass/Vol] 8.6 mg/dL 8.5-10.1 [facility] Serum or plasma creatinine m easurement (mass/volume)Ordered By: Nima Grover on 08-17-2022 Creatinine [Mass/Vol] 0.87 mg/dL 0.55-1.02 [facility] Comment on above: The validity of the calculated GFR & GFRAA in patients over 70 years has not been determined. Clinical correlation is essential. Serum or plasma urea nitroge n measurement (mass/volume)Ordered By: Nima Grover on 08-17-2022 Urea nitrogen [Mass/Vol] 19 mg/dL 7-18 [facility] Thin prep Papanicolaou smear with manual screeningOrdered By: Nima Grover on 08-17-2022 Thin prep Papanicolaou smear with manual screening 4 5-15 [facility] Absolute lymphocyte countOrd ered By: Dr. Greenwood on 08-16-2022 Lymphocytes Auto (Unsp spec) [#/Vol] 0.79 10*3/uL 0.83-4.51 [facility] Basophil percentageOrdered B y: Dr. Greenwood on 08-16-2022 Basophils/100 WBC (Bld) 0.5 % 0-1 [facility] Chloride [Moles/Vol] 114 mmol/L 98-107 [facility] Eosinophils/100 WBC (Bld) 6.1 % 0-5 [facility] Glucose [Mass/Vol] 99 mg/dL 74-106 [facility] Neutrophils (Bld) [#/Vol] 2.5 10*3/uL 2.0-7.7 [facility] Neutrophils/100 WBC (Bld) 62.1 % 47-70 [facility] Potassium [Moles/Vol] 4.2 mmol/L 3.5-5.1 [facility] Sodium [Moles/Vol] 143 mmol/L 136-145 [facility] WBC (Bld) [#/Vol] 4.1 10*3/uL 4.4-11.0 [facility] Blood erythrocytes count (nu mber/volume)Ordered By: Dr. Greenwood on 08-16-2022 RBC (Bld) [#/Vol] 3.67 10*6/uL 4.2-5.4 [facility] Blood hemoglobin measurement (mass/volume)Ordered By: Dr. Greenwood on 08-16-2022 Hemoglobin (Bld) [Mass/Vol] 11.4 g/dL 12.0-15.0 [facility] Blood lymphocytes/100 leukoc ytesOrdered By: Dr. Greenwood on 08-16-2022 Lymphocytes/100 WBC (Bld) 19.3 % 19-41 [facility] Blood monocytes/100 leukocyt esOrdered By: Dr. Greenwood on 08-16-2022 Monocytes/100 WBC (Bld) 11.5 % 0-10 [facility] Blood platelet mean volumeOr dered By: Dr. Greenwood on 08-16-2022 Platelet mean volume (Bld) [Entitic vol] 11.5 fL 6.2-12.0 [facility] COVID-19 virus antigen assay Ordered By: Dr. Mclean on 08-16-2022 SARS-CoV-2 (COVID-19) Ag IA.rapid Ql (Resp) [facility] Culture, urineOrdered By: Dr Bertha Rojas on 08-16-2022 Bacteria identified Cx Nom (U) Escherichia coli [facility] Determination of erythrocyte mean corpuscular volume (MCV)Ordered By: Dr. Greenwood on 08-16-2022 MCV (RBC) [Entitic vol] 99.5 fL 81-99 [facility] Hematocrit Auto (Bld) [Volum e fraction]Ordered By: Dr. Greenwood on 08-16-2022 Hematocrit (Bld) [Volume fraction] 36.5 % 37-47 [facility] Laboratory - Chemistry and C hemistry - challengeOrdered By: Dr. Greenwood on 08-16-2022 CO2 [Moles/Vol] 27.0 mmol/L 21.0-32.0 [facility] Urea nitrogen/Creatinine [Mass ratio] 23.8 mg/mg 10-20 [facility] Laboratory - Hematology and Cell countsOrdered By: Dr. Greenwood on 08-16-2022 Erythrocyte distribution width (RBC) [Entitic vol] 46.9 fL 35.1-43.9 [facility] Erythrocyte distribution width (RBC) [Ratio] 13.0 % 11.6-14.6 [facility] Immature granulocytes/100 WBC (Bld) 0.500 % 0.0-0.9 [facility] Comment on above: IG% - Immature Granu locytes (promyelocytes, myelocytes and metamyelocytes) > 1% indicates that a LEFT SHIFT is Present. MCH (RBC) [Entitic mass] 31.1 pg 27.0-32.0 [facility] Nucleated RBC/100 WBC (Bld) [Ratio] 0 % 0-5 [facility] MCHC Auto (RBC) [Mass/Vol]Or dered By: Dr. Greenwood on 08-16-2022 MCHC (RBC) [Mass/Vol] 31.2 g/dL 32-36 [facility] No Panel InformationOrdered By: Dr. Greenwood on 08-16-2022 Estimated Creatinine Clearance Calc 50.62 ml/min [facility] Estimated GFR (MDRD) Amer 78 mL/min >60 [facility] Comment on above: GFR Calc Estimated GFR (MDRD) Non-Af Amer 65 mL/min >60 [facility] Comment on above: Non- GFR Calc Platelets bldOrdered By: Dr. Greenwood on 08-16-2022 Platelets (Bld) [#/Vol] 150 10*3/uL 150-450 [facility] Serum or plasma calcium enrique urement (mass/volume)Ordered By: Dr. Greenwood on 08-16-2022 Calcium [Mass/Vol] 8.5 mg/dL 8.5-10.1 [facility] Serum or plasma creatinine m easurement (mass/volume)Ordered By: Dr. Greenwood on 08-16-2022 Creatinine [Mass/Vol] 0.88 mg/dL 0.55-1.02 [facility] Comment on above: The validity of the calculated GFR & GFRAA in patients over 70 years has not been determined. Clinical correlation is essential. Serum or plasma urea nitroge n measurement (mass/volume)Ordered By: Dr. Greenwood on 08-16-2022 Urea nitrogen [Mass/Vol] 21 mg/dL 7-18 [facility] Thin prep Papanicolaou smear with manual screeningOrdered By: Dr. Greenwood on 08-16-2022 Thin prep Papanicolaou smear with manual screening 2 5-15 [facility] Absolute lymphocyte counton 08-14-2022 Lymphocytes Auto (Unsp spec) [#/Vol] 0.32 10*3/uL 0.83-4.51 [facility] Work Phone: Basophil percentageOrdered B y: Dr. Rojas on 08-14-2022 Basophil percentage 10-25 SEEN /hpf 0-5 [facility] Bilirubin [Mass/Vol] 0.80 mg/dL 0.20-1.00 [facility] Comment on above: For patients on eltr ombopag therapy, use of Dimension [place] TBIL is not recommended. Lactate [Moles/Vol] 1.2 mmol/L 0.4-2.0 [facility] Protein [Mass/Vol] 6.6 g/dL 6.4-8.2 [facility] Basophil percentageon 2021 Basophils/100 WBC (Bld) 0.3 % 0-1 [facility] Work Phone: Chloride [Moles/Vol] 107 mmol/L 98-107 [facility] Work Phone: Eosinophils/100 WBC (Bld) 0.5 % 0-5 [facility] Work Phone: Glucose [Mass/Vol] 127 mg/dL 74-106 [facility] Work Phone: Comment on above: Fasting Glucose resu lt greater than or equal to 126 mg/dL suggests DIABETES MELLITUS per A.D.A. criteria. Neutrophils (Bld) [#/Vol] 5.6 10*3/uL 2.0-7.7 [facility] Work Phone: Neutrophils/100 WBC (Bld) 89.4 % 47-70 [facility] Work Phone: Potassium [Moles/Vol] 4.6 mmol/L 3.5-5.1 [facility] Work Phone: [phone] Sodium [Moles/Vol] 137 mmol/L 136-145 [facility] Work Phone: WBC (Bld) [#/Vol] 6.3 10*3/uL 4.4-11.0 [facility] Work Phone: Bilirubin Test strip Ql (U)O rdered By: Dr. Rojas on 08-14-2022 Bilirubin Ql (U) 1 mg/dL Negative [facility] Comment on above: COLOR OF URINE MAY A FFECT DIPSTICK RESULTS. Blood erythrocytes count (nu mber/volume)on 08-14-2022 RBC (Bld) [#/Vol] 4.31 10*6/uL 4.2-5.4 [facility] Work Phone: Blood hemoglobin measurement (mass/volume)on 08-14-2022 Hemoglobin (Bld) [Mass/Vol] 13.2 g/dL 12.0-15.0 [facility] Work Phone: Blood lymphocytes/100 leukoc yteson 08-14-2022 Lymphocytes/100 WBC (Bld) 5.1 % 19-41 [facility] Work Phone: Blood manual differential co mment interpretation (narrative result)Ordered By: Dr. Rojas on 08-14-2022 Manual differential comment [place] (Bld) [Interp] SCANNED [facility] Comment on above: LYMPHOPENIA NOTED Blood monocytes/100 leukocyt eson 08-14-2022 Monocytes/100 WBC (Bld) 4.4 % 0-10 [facility] Work Phone: Blood platelet mean volumeon 08-14-2022 Platelet mean volume (Bld) [Entitic vol] 10.9 fL 6.2-12.0 [facility] Work Phone: CNOVon 08-14-2022 CNOV Office Visit (FAMPWS ) LETTY LEON ([id number]) 1940 F Date Time Provider Department 08/14/22 1:20 PM JAREN MONTES During your visit today, we recorded the following information about you: Temperature Pulse Respiration Blood pressure 98.6 degrees 78/minute 24/minute 76/44 Weight 82.6 kg Jaren Montes APRN.BRENNA 08/14/2022 1:55 PM Addendum Chief Complaint Patient [...] more present at this time. Jaren Montes APRN.[employer] REP Discussed with granddaughter and son that Letty needs a more immediate work-up and intervention which would best take place at emergency room in hospital. I offered EMS but family declined and will transport themselves. [facility] ER portal updated This note was partly generated using [employer] voice recognition dictation and may contain some [...] - Renea (more content not included)... Normal [facility] Determination of erythrocyte mean corpuscular volume (MCV)on 08-14-2022 MCV (RBC) [Entitic vol] 98.4 fL 81-99 [facility] Work Phone: Hematocrit Auto (Bld) [Volum e fraction]on 08-14-2022 Hematocrit (Bld) [Volume fraction] 42.4 % 37-47 [facility] Work Phone: Hyaline casts LM.LPF (Urine sed) [#/Area]Ordered By: Dr. Rojas on 08-14-2022 Hyaline casts (Urine sed) [#/Area] 0 /[LPF] 0-5 [facility] INR in Blood by Coagulation assayOrdered By: Dr. Rojas on 08-14-2022 INR Coag (Bld) [Relative time] 1.1 {INR} [facility] Ketones Test strip Ql (U)Ord ered By: Dr. Rojas on 08-14-2022 Ketones Ql (U) Negative Negative [facility] Laboratory - Chemistry and C hemistry - challengeOrdered By: Dr. Rojas on 08-14-2022 ALP [Catalytic activity/Vol] 108 U/L 45-117 [facility] ALT [Catalytic activity/Vol] 17 U/L 13-56 [facility] Globulin (S) [Mass/Vol] 3.0 g/dL 2.2-4.2 [facility] Laboratory - Chemistry and C hemistry - challengeon 08-14-2022 CO2 [Moles/Vol] 25.0 mmol/L 21.0-32.0 [facility] Work Phone: Urea nitrogen/Creatinine [Mass ratio] 19.3 mg/mg 10-20 [facility] Work Phone: Laboratory - CoagulationOrde red By: Dr. Rojas on 08-14-2022 aPTT Coag (Bld) [Time] 28.3 s 24.1-36.2 [facility] PT Coag (PPP) [Time] 13.8 s 11.7-14.9 [facility] Laboratory - Hematology and Cell countson 08-14-2022 Erythrocyte distribution width (RBC) [Entitic vol] 46.5 fL 35.1-43.9 [facility] Work Phone: [phone] Erythrocyte distribution width (RBC) [Ratio] 12.8 % 11.6-14.6 [facility] Work Phone: [phone] Immature granulocytes/100 WBC (Bld) 0.300 % 0.0-0.9 [facility] Work Phone: Comment on above: IG% - Immature Granu locytes (promyelocytes, myelocytes and metamyelocytes) > 1% indicates that a LEFT SHIFT is Present. MCH (RBC) [Entitic mass] 30.6 pg 27.0-32.0 [facility] Work Phone: Nucleated RBC/100 WBC (Bld) [Ratio] 0 % 0-5 [facility] Work Phone: [phone] MCHC Auto (RBC) [Mass/Vol]on 08-14-2022 MCHC (RBC) [Mass/Vol] 31.1 g/dL 32-36 [facility] Work Phone: Mucus LM Ql (Urine sed)Order ed By: Dr. Rojas on 08-14-2022 Mucus Ql (Urine sed) 0 SEEN /hpf [facility] Nitrite Test strip Ql (U)Ord ered By: Dr. Rojas on 08-14-2022 Nitrite Ql (U) Positive Negative [facility] No Panel Informationon 08-14 Estimated Creatinine Clearance Calc 31.82 ml/min [facility] Work Phone: Estimated GFR (MDRD) Amer 46 mL/min >60 [facility] Work Phone: [phone] Comment on above: GFR Calc Estimated GFR (MDRD) Non-Af Amer 38 mL/min >60 [facility] Work Phone: Comment on above: Non- GFR Calc Platelets bldon 08-14-2022 Platelets (Bld) [#/Vol] 205 10*3/uL 150-450 [facility] Work Phone: Protein Test strip Ql (U)Ord ered By: Dr. Rojas on 08-14-2022 Protein Ql (U) 15 mg/dl Negative [facility] Serum or plasma albumin enrique urement (mass/volume)Ordered By: Dr. Rojas on 08-14-2022 Albumin [Mass/Vol] 3.6 g/dL 3.2-5.0 [facility] Serum or plasma albumin/glob ulin mass ratioOrdered By: Dr. Rojas on 08-14-2022 Albumin/Globulin [Mass ratio] 1.2 {ratio} 0.9-2.4 [facility] Serum or plasma calcium enrique urement (mass/volume)on 08-14-2022 Calcium [Mass/Vol] 8.6 mg/dL 8.5-10.1 [facility] Work Phone: Serum or plasma creatinine m easurement (mass/volume)on 08-14-2022 Creatinine [Mass/Vol] 1.40 mg/dL 0.55-1.02 [facility] Work Phone: Comment on above: The validity of the calculated GFR & GFRAA in patients over 70 years has not been determined. Clinical correlation is essential. Serum or plasma urea nitroge n measurement (mass/volume)on 08-14-2022 Urea nitrogen [Mass/Vol] 27 mg/dL 7-18 [facility] Work Phone: Squamous epithelial cells de tection in urine sediment by light microscopyOrdered By: Dr. Rojas on 08-14-2022 Epithelial cells.squamous LM Ql (Urine sed) 0 SEEN /hpf 5-10 [facility] Thin prep Papanicolaou smear with manual screeningOrdered By: Dr. Rojas on 08-14-2022 Thin prep Papanicolaou smear with manual screening 14 U/L 15-37 [facility] Thin prep Papanicolaou smear with manual screeningon 08-14-2022 Thin prep Papanicolaou smear with manual screening 5 5-15 [facility] Work Phone: Urine blood detectionOrdered By: Dr. Rojas on 08-14-2022 RBC Ql (U) 10 /ul Negative [facility] RBC Ql (U) 0 SEEN /hpf 0-5 [facility] Urine clarityOrdered By: Dr. Rojas on 08-14-2022 Clarity (U) Sl. Cloudy Clear [facility] Urine color determinationOrd ered By: Dr. Rojas on 08-14-2022 Color (U) Yellow Yellow [facility] Urine glucose detectionOrder ed By: Dr. Rojas on 08-14-2022 Glucose Ql (U) Normal mg/dl Normal [facility] Urine leukocyte esterase det ection by dipstickOrdered By: Dr. Rojas on 08-14-2022 Leukocyte esterase Test strip Ql (U) 100 /ul Negative [facility] Urine pHOrdered By: Dr. Radha chaparro on 08-14-2022 pH (U) 5.0 [pH] 5.0 - 8.0 [facility] Urine sediment bacteria coun t by microscopy (number/high power field)Ordered By: Dr. Rojas on 08-14-2022 Bacteria LM.HPF (Urine sed) [#/Area] 2 /[HPF] None Seen [facility] Urine specific gravity measu rementOrdered By: Dr. Rojas on 08-14-2022 Specific gravity (U) [Rel density] 1.015 1.002-1.030 [facility] Urobilinogen Auto test strip Ql (U)Ordered By: Dr. Rojas on 08-14-2022 Urobilinogen Ql (U) 1 mg/dl Normal [facility] CNPNon 06-30-2022 [facility] Telephone (MARIWS) LETTY LEON ([id number]) 1940 F Date Time Provider Department 06/30/22 [...] (Right) [C50.419] 08/03/2005 02/22/2009 SEROMA, POST OP [[id number]] 09/19/2005 02/22/2009 Essential hypertension [I10] 07/23/2006 Syncope [...] by TANYA ROJAS MA on 06/30/22 Normal [facility] CBC panel Auto (Bld)on 06-24 Erythrocyte distribution width (RBC) [Ratio] 13.2 % Normal 11.5-15.0 [facility] Comment on above: Order Comment: Speci men Type: BLOOD SPECIMENOrdering Facility: [facility] Address: [address] [place] [address] Performed By: #### 5 8410-2 ####[facility] LABIA [id number] [address] [place] Hematocrit (Bld) [Volume fraction] 42.0 % Normal 36.0-46.0 [facility] Comment on above: Order Comment: Speci men Type: BLOOD SPECIMENOrdering Facility: [facility] Address: [address] [place] [address] Performed By: #### 5 8410-2 ####[facility] LABIA [id number] [address] [place] Hemoglobin (Bld) [Mass/Vol] 12.9 g/dL Normal 11.5-15.5 [facility] Comment on above: Order Comment: Speci men Type: BLOOD SPECIMENOrdering Facility: [facility] Address: [address] [place] [address] Performed By: #### 5 8410-2 ####[facility] LABIA [id number] [address] [place] MCH (RBC) [Entitic mass] 30.6 pg Normal 26.0-34.0 [facility] Comment on above: Order Comment: Speci men Type: BLOOD SPECIMENOrdering Facility: [facility] Address: [address] Performed By: #### 5 8410-2 ####[facility] LABCLIA [id number] [address] [place] [facility] MCHC (RBC) [Mass/Vol] 30.7 g/dL Normal 30.5-36.0 [facility] Comment on above: Order Comment: Speci men Type: BLOOD SPECIMENOrdering Facility: [facility] Address: [address] Performed By: #### 5 8410-2 ####[facility] LABIA [id number] [place] [address] [place] MCV (RBC) [Entitic vol] 99.8 fL Normal 80.0-100.0 [facility] Comment on above: Order Comment: Speci men Type: BLOOD SPECIMENOrdering Facility: [facility] Address: [address] [place], [place] [address] Performed By: #### 5 8410-2 ####[facility] LABIA [id number] [place] [address] [place] Nucleated RBC (Bld) [#/Vol] 10*3/uL Normal <0.01 [facility] Comment on above: Order Comment: Speci men Type: BLOOD SPECIMENOrdering Facility: [facility] Address: [address] [place], [place] [address] Performed By: #### 5 8410-2 ####[facility] LABCLIA [id number] [place] [address] [place] Platelet mean volume (Bld) [Entitic vol] 11.7 fL Normal 9.0-12.7 [facility] Comment on above: Order Comment: Speci men Type: BLOOD SPECIMENOrdering Facility: [facility] Address: [address] [place], [place] [address] Performed By: #### 5 8410-2 ####[facility] LABCLIA [id number] [place] [address] [place] Platelets (Bld) [#/Vol] 216 10*3/uL Normal 150-400 [facility] Comment on above: Order Comment: Speci men Type: BLOOD SPECIMENOrdering Facility: [facility] Address: [address] [place] [address] Performed By: #### 5 8410-2 ####[facility] [id number] [place] [address] [place] RBC (Bld) [#/Vol] 4.21 10*6/uL Normal 3.90-5.20 [facility] Comment on above: Order Comment: Speci men Type: BLOOD SPECIMENOrdering Facility: [facility] Address: [address] [place] [address] Performed By: #### 5 8410-2 ####[facility] [id number] [place] [address] [place] WBC (Bld) [#/Vol] 6.64 10*3/uL Normal 3.70-11.00 [facility] Comment on above: Order Comment: Speci men Type: BLOOD SPECIMENOrdering Facility: [facility] Address: [address] [place] [address] Performed By: #### 5 8410-2 ####[facility] [id number] [place] [address] [place] CNOVon 06-24-2022 CNOV Office Visit (FAMPWS ) LETTY LEON ([id number]) 1940 F Date Time Provider Department 06/24/22 [...] today for face to face visit per [facility] so that pt can continue [...] [Cefadroxil] Hives Floxin [Ofloxacin] Hives Grass Pollen [employer] Current Medications Current Outpatient Medications [...] for th (more content not included)... Normal [facility] Comprehensive metabolic 2000 panelon 06-24-2022 Albumin [Mass/Vol] 4.2 g/dL Normal 3.9-4.9 [facility] Comment on above: Order Comment: Speci men Type: BLOOD SPECIMENOrdering Facility: [facility] Address: [address] [address] Performed By: #### 3 016-3, 17416-7 ####[facility] LABCLIA [id number] [place] [address] [place] ALP [Catalytic activity/Vol] 123 U/L Normal 34-123 [facility] Comment on above: Order Comment: Speci men Type: BLOOD SPECIMENOrdering Facility: [facility] Address: [address] [address] Performed By: #### 3 016-3, 76127-5 ####[facility] LABCLIA [id number] [place] [address] [place] ALT [Catalytic activity/Vol] 10 U/L Normal 7-38 [facility] Comment on above: Order Comment: Speci men Type: BLOOD SPECIMENOrdering Facility: [facility] Address: [address] Performed By: #### 3 016-3, 57984-8 ####[facility] LABCLIA [id number] [place] [address] [place] Anion gap [Moles/Vol] 14 mmol/L Normal 9-18 [facility] Comment on above: Order Comment: Speci men Type: BLOOD SPECIMENOrdering Facility: [facility] Address: [address] Performed By: #### 3 016-3, 35232-4 ####[facility] LABCLIA [id number] [place] [address] [place] AST [Catalytic activity/Vol] 22 U/L Normal 13-35 [facility] Comment on above: Order Comment: Speci men Type: BLOOD SPECIMENOrdering Facility: [facility] Address: [address] [place] [address] Performed By: #### 3 016-3, 25650-1 ####[facility] LABCLIA [id number] [place] [address] [place] Bilirubin [Mass/Vol] 0.7 mg/dL Normal 0.2-1.3 [facility] Comment on above: Order Comment: Speci men Type: BLOOD SPECIMENOrdering Facility: [facility] Address: [address] [place] [address] Performed By: #### 3 016-3, 89122-3 ####[facility] LABIA [id number] [place] [address] [place] Calcium [Mass/Vol] 9.3 mg/dL Normal 8.5-10.2 [facility] Comment on above: Order Comment: Speci men Type: BLOOD SPECIMENOrdering Facility: [facility] Address: [address] [place] [address] Performed By: #### 3 016-3, 10996-8 ####[facility] LABCLIA [id number] [place] [address] [place] Chloride [Moles/Vol] 104 mmol/L Normal 97-105 [facility] Comment on above: Order Comment: Speci men Type: BLOOD SPECIMENOrdering Facility: [facility] Address: [address] [place], [place] [address] Performed By: #### 3 016-3, 80035-9 ####[facility] LABCLIA [id number] [place] [address] [place] CO2 [Moles/Vol] 24 mmol/L Normal 22-30 [facility] Comment on above: Order Comment: Speci men Type: BLOOD SPECIMENOrdering Facility: [facility] Address: [address] [address] Performed By: #### 3 -3, ####[facility] LABCLIA [id number] [place] [address] [place] Creatinine [Mass/Vol] 1.07 mg/dL High 0.58-0.96 [facility] Comment on above: Order Comment: Speci men Type: BLOOD SPECIMENOrdering Facility: [facility] Address: [address] [place] [address] Performed By: #### 3 , ####[facility] LABCLIA [id number] [place] [address] [place] ESTIMATED GLOMERULAR FILTRATION RATE 52 mL/min/1.73m??? Low >=60 [facility] Comment on above: Order Comment: Speci men Type: BLOOD SPECIMENOrdering Facility: [facility] Address: [address] [place] [address] Result Comment: Billie mated Glomerular Filtration Rate [...] reflect actual GFR. Performed By: #### 3 -3, ####[facility] LABCLIA [id number] [place] [address] [place] Glucose [Mass/Vol] 75 mg/dL Normal 74-99 [facility] Comment on above: Order Comment: Speci men Type: BLOOD SPECIMENOrdering Facility: [facility] Address: [address] [address] Result Comment: The [place] [employer] (ADA) provides guidance for cutoff [...] Standards of Medical Care in Diabetes 2016, [place] [employer]. Diabetes Care. 2016.39(Suppl 1). Performed By: #### 3 016-3, ####[facility] LABIA [id number] [place] [address] [place] Potassium [Moles/Vol] 4.2 mmol/L Normal 3.7-5.1 [facility] Comment on above: Order Comment: Speci men Type: BLOOD SPECIMENOrdering Facility: [facility] Address: [address] [address] Performed By: #### 3 016-3, ####[facility] LABIA [id number] [place] [address] [place] Protein [Mass/Vol] 7.0 g/dL Normal 6.3-8.0 [facility] Comment on above: Order Comment: Speci men Type: BLOOD SPECIMENOrdering Facility: [facility] Address: [address] [address] Performed By: #### 3 016-3, ####[facility] LABIA [id number] [place] [address] [place] Sodium [Moles/Vol] 142 mmol/L Normal 136-144 [facility] Comment on above: Order Comment: Speci men Type: BLOOD SPECIMENOrdering Facility: [facility] Address: [address] Performed By: #### 3 016-3, 28180-4 ####[facility] [id number] [address] [place] [facility] Urea nitrogen [Mass/Vol] 14 mg/dL Normal 7-21 [facility] Comment on above: Order Comment: Speci men Type: BLOOD SPECIMENOrdering Facility: [facility] Address: [address] [place] [address] Performed By: #### 3 016-3, 52116-6 ####[facility] [id number] [address] [place] TSH SerPl-aCncon 06-24-2022 TSH Qn 0.595 m[IU]/L Normal 0.270-4.200 [facility] Comment on above: Order Comment: Speci men Type: BLOOD SPECIMENOrdering Facility: [facility] Address: [address] [place] [address] Performed By: #### 3 016-3, 04101-8 ####[facility] [id number] [address] [place] CNPNon 06-02-2022 CNPN Telephone (MARIWS) LETTY LEON ([id number]) 1940 F Date Time Provider Department 06/02/22 GAVINO MELENDEZ FAMPWS During your visit today, we recorded the following information about you: Priyanka Hassan LPN 06/02/2022 2:43 PM Signed Ray from [facility] calling with PT plan of care, 2 [...] (Right) [C50.419] 08/03/2005 02/22/2009 SEROMA, POST OP [[id number]] 09/19/2005 02/22/2009 Essential hypertension [I10] 07/23/2006 Syncope [...] Status:Closed by TANYA ROJAS MA on 06/07/22 [facility] CNPNon 05-30-2022 CNPN Telephone (FAMPWS) LETTY LEON ([id number]) 1940 F Date Time Provider Department 05/30/22 [facility] During your visit today, we recorded the [...] nima once the orders have been sent. [facility] PH [phone]. 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] Order(s):[facility] [[id number]] Order #: [id number]: 1 Prescriptions as of 05/30/2022 - busPIRone [...] (Right) [C50.419] 08/03/2005 02/22/2009 SEROMA, POST OP [[id number]] 09/19/2005 02/22/2009 Essential hypertension [I10] 07/23/2006 Syncope [...] Encounter Status:Closed by ANCELMO GARCIAS on 05/30/22 [facility] Itzel 03-22-2022 [facility] LETTY LEON ([id number]) 1940 F Date Time Provider Department 03/22/22 CARLYN BRIZUELA During your visit today, we recorded the following information about you: Priyanka Sonya MORRIS 03/22/2022 1:50 PM Signed Patient son Nima Leon calling asking for orders for home PT/OT. Patient had used [facility] previously. Patient is homebound, not very mobile. Son had called home health and was told needs order. Aware PCP is out of office, sending request to [employer] to review. Pending consult, needs diagnosis. Please advise Carlyn Brizuela APRN.PERSONAL LINES SALES REP 03/22/2022 4:39 PM Signed Consults have been placed and signed. Thank you. Carlyn Brizuela APRN.PERSONAL LINES SALES REP Allergies As of Date: 03/22/2022 Noted Allergy Reaction AMOXICILLIN 06/27/2005 4 - Hives DURICEF (CEFADROXIL) 06/27/2005 4 - Hives FLOXIN (OFLOXACIN) 06/27/2005 4 - Hives GRASS POLLEN 06/27/2005 PINE NEEDLE OIL 06/27/2005 Date Reviewed: 01/30/2022 Reviewed by: Emelia Rodriguez Ma - Fully Assessed Reason for Visit: Orders [681] Primary Visit Diagnosis:Generalized weakness [R53.1] Order(s):CONSULT TO PHYSICAL THERAPY [9032] Order #: [id number]: 1 FUTURE CONSULT TO DINING SERVICES DIRECTOR [[id number]] Order #: [id number]: 1 FUTURE Prescriptions as of 03/22/2022 - [...] (Right) [C50.419] 08/03/2005 02/22/2009 SEROMA, POST OP [[id number]] 09/19/2005 02/22/2009 Essential hypertension [I10] 07/23/2006 Syncope [...] Encounter Status:Closed by CARLYN BRIZUELA on 03/22/22 [facility] Rod 01-30-2022 CNOV Office Visit (SHARONDAPWS ) LETTY LEON ([id number]) 1940 F Date Time Provider Department 01/30/22 [...] Floxin [Ofloxacin] Hives - Grass Pollen - Harper Needle Oil Current Medications Current Outpatient Medications [...] (M12.9) Arthropathy (more content not included)... Normal [facility] Comprehensive metabolic 2000 panelon 01-25-2022 Albumin [Mass/Vol] 4.5 g/dL Normal 3.9-4.9 [facility] Comment on above: Order Comment: Speci men Type: BLOOD SPECIMENOrdering Facility: [facility] Address: [address] [place] [address] Performed By: #### L DANGELO, 3016-3, 82435-8 ####[facility] LABCLIA [id number] [place] [address] [place] ALP [Catalytic activity/Vol] 113 U/L Normal 34-123 [facility] Comment on above: Order Comment: Speci men Type: BLOOD SPECIMENOrdering Facility: [facility] Address: [address] [place] [address] Performed By: #### L DANGELO, 3016-3, 71379-5 ####[facility] LABCLIA [id number] [address] [place] ALT [Catalytic activity/Vol] 11 U/L Normal 7-38 [facility] Comment on above: Order Comment: Speci men Type: BLOOD SPECIMENOrdering Facility: [facility] Address: [address] [place] [address] Performed By: #### L CLINTB, 3016-3, 68509-1 ####[facility] LABCLIA [id number] [place] [id number] [place] Anion gap [Moles/Vol] 10 mmol/L Normal 9-18 [facility] Comment on above: Order Comment: Speci men Type: BLOOD SPECIMENOrdering Facility: [facility] Address: [address] [place] [address] Performed By: #### L IPB, 6-3, 10657-5 ####[facility] LABCLIA [id number] [place] [address] [place] AST [Catalytic activity/Vol] 20 U/L Normal 13-35 [facility] Comment on above: Order Comment: Speci men Type: BLOOD SPECIMENOrdering Facility: [facility] Address: [address] [place] [address] Performed By: #### L IPB, 6-3, 36394-1 ####[facility] LABCLIA [id number] [place] [address] [place] Bilirubin [Mass/Vol] 0.5 mg/dL Normal 0.2-1.3 [facility] Comment on above: Order Comment: Speci men Type: BLOOD SPECIMENOrdering Facility: [facility] Address: [address] [place] [address] Performed By: #### L IPB, 6-3, 22501-1 ####[facility] LABCLIA [id number] [place] [address] [place] Calcium [Mass/Vol] 9.7 mg/dL Normal 8.5-10.2 [facility] Comment on above: Order Comment: Speci men Type: BLOOD SPECIMENOrdering Facility: [facility] Address: [address] [place], [place] [address] Performed By: #### L IPB, 6-3, 92230-3 ####[facility] LABCLIA [id number] [place] [address] [place] Chloride [Moles/Vol] 106 mmol/L High 97-105 [facility] Comment on above: Order Comment: Speci men Type: BLOOD SPECIMENOrdering Facility: [facility] Address: [address] [place], [place] [address] Performed By: #### L IPB, 6-3, ####[facility] LABCLIA [id number] [place] [address] [place] CO2 [Moles/Vol] 27 mmol/L Normal 22-30 [facility] Comment on above: Order Comment: Speci men Type: BLOOD SPECIMENOrdering Facility: [facility] Address: [address] [place], [place] [address] Performed By: #### L CLINTB, 6-3, ####[facility] LABCLIA [id number] [place] [address] [place] Creatinine [Mass/Vol] 1.11 mg/dL High 0.58-0.96 [facility] Comment on above: Order Comment: Speci men Type: BLOOD SPECIMENOrdering Facility: [facility] Address: [address] [place], [place] [address] Performed By: #### L IPB, 3015-3, ####[facility] LABCLIA [id number] [place] [address] [place] ESTIMATED GLOMERULAR FILTRATION RATE 50 mL/min/1.73m??? Low >=60 [facility] Comment on above: Order Comment: Speci men Type: BLOOD SPECIMENOrdering Facility: [facility] Address: [address] [place], [place] [address] Result Comment: Billie mated Glomerular Filtration Rate [...] reflect actual GFR. Performed By: #### L DANGELO, 3015-3, ####[facility] LABCLIA [id number] [address] [address] [place] Glucose [Mass/Vol] 102 mg/dL High 74-99 [facility] Comment on above: Order Comment: Speci men Type: BLOOD SPECIMENOrdering Facility: [facility] Address: [address] [place] [id number] Result Comment: The [place] Diabetes Association (ADA) provides guidance for cutoff [...] Standards of Medical Care in Diabetes 2016, [place] Diabetes Association. Diabetes Care. 2016.39(Suppl 1). Performed By: #### L DANGELO, 3015-3, ####[facility] LABCLIA [id number] [place] [address] [place] Potassium [Moles/Vol] 4.7 mmol/L Normal 3.7-5.1 [facility] Comment on above: Order Comment: Ruddyi men Type: BLOOD SPECIMENOrdering Facility: [facility] Address: [address] [place] [address] Performed By: #### L DANGELO, 3015-3, ####[facility] LABCLIA [id number] [address] [address] [place] Protein [Mass/Vol] 7.0 g/dL Normal 6.3-8.0 [facility] Comment on above: Order Comment: Speci men Type: BLOOD SPECIMENOrdering Facility: [facility] Address: [address] [place], [place] [address] Performed By: #### L CLINTB, 6-3, 19003-5 ####[facility] LABCLIA [id number] [place] [address] [place] Sodium [Moles/Vol] 143 mmol/L Normal 136-144 [facility] Comment on above: Order Comment: Speci men Type: BLOOD SPECIMENOrdering Facility: [facility] Address: [address] [place] [address] Performed By: #### L CLINTB, 6-3, 99674-7 ####[facility] LABCLIA [id number] [place] [address] [place] Urea nitrogen [Mass/Vol] 24 mg/dL High 7-21 [facility] Comment on above: Order Comment: Speci men Type: BLOOD SPECIMENOrdering Facility: [facility] Address: [address] [place], [place] [address] Performed By: #### L DANGELO, 6-3, 61602-8 ####[facility] LABCLIA [id number] [place] [address] [place] LIPID PANEL BASICon 01-26-20 22 Cholesterol [Mass/Vol] 154 mg/dL Normal <200 [facility] Comment on above: Order Comment: Speci men Type: BLOOD SPECIMENOrdering Facility: [facility] Address: [address] [place] [address] Result Comment: <200 mg/dL, Desirable 200-239 mg/dL, Borderline high >239 mg/dL, High Performed By: #### L CLINTB, 3015-3, 60311-4 ####[facility] LABCLIA [id number] [place] [address] [place] Cholesterol in HDL [Mass/Vol] 64 mg/dL Normal >39 [facility] Comment on above: Order Comment: Speci men Type: BLOOD SPECIMENOrdering Facility: [facility] Address: [address] [place] [address] Result Comment: 40-5 9 mg/dL, Acceptable >59 mg/dL, High: Negative risk factor for coronary heart disease <40 mg/dL, Low: Positive risk factor for coronary heart disease Performed By: #### L CLINTB, 3016-3, 62230-6 ####[facility] LABCLIA [id number] [place] [address] [place] Cholesterol in LDL [Mass/Vol] 76 mg/dL Normal <100 [facility] Comment on above: Order Comment: Speci men Type: BLOOD SPECIMENOrdering Facility: [facility] Address: [address] [place] [address] Result Comment: <100 mg/dL, Optimal 100-129 mg/dL, Near optimal/above optimal 130-159 mg/dL, Borderline high 160-189 mg/dL, High >189 mg/dL, Very high Secondary prevention optimal LDL Cholesterol levels are recommended to be < 70 mg/dL Performed By: #### L DANGELO, 6-3, ####[facility] LABCLIA [id number] [address] [place] Cholesterol in LDL/Cholesterol in HDL [Mass ratio] 1.19 {ratio} Normal <2.54 [facility] Comment on above: Order Comment: Speci men Type: BLOOD SPECIMENOrdering Facility: [facility] Address: [address] [place] [address] Result Comment: Refgaurav sellers: 1. National Cholesterol Education Program ATP III Guideline At-A-Glance Quick Desk Reference: National Heart, Lung, and Blood [place]. National Institutes of Health. 2001: NIH Publication No. 01-3305. 2. An International Atherosclerosis Society position paper: global recommendations for the management of dyslipidemia: executive summary, Atherosclerosis. 2014: 232(2):410-413. Performed By: #### L CLINTB, 3016-3, 60262-5 ####[facility] LABCLIA [id number] [address] [place] Cholesterol in VLDL [Mass/Vol] 14 mg/dL Normal <30 [facility] Comment on above: Order Comment: Speci men Type: BLOOD SPECIMENOrdering Facility: [facility] Address: [address] [place] [address] Performed By: #### L CLINTB, 6-3, 09808-9 ####[facility] LABCLIA [id number] [address] Cholesterol non HDL [Mass/Vol] 90 mg/dL Normal <130 [facility] Comment on above: Order Comment: Speci men Type: BLOOD SPECIMENOrdering Facility: [facility] Address: [address] [place] [address] Result Comment: <130 mg/dL, Optimal 130-159 mg/dL, Near optimal/above optimal 160-189 mg/dL, Borderline high 190-219 mg/dL, High >219 mg/dL, Very high Secondary prevention optimal non HDL Cholesterol levels are recommended to be <100 mg/dL Performed By: #### L CLINTB, 3015-3, 41344-3 ####[facility] LABCLIA [id number] [address] [place] OF [facility] Cholesterol.total/Choles terol in HDL [Mass ratio] 2.41 {ratio} Normal <5.10 [facility] Comment on above: Order Comment: Speci men Type: BLOOD SPECIMENOrdering Facility: [facility] Address: [address] [place] [address] Performed By: #### L CLINTB, 3015-3, 59202-9 ####[facility] LABCLIA [id number] [address] [place] FASTING TIME 14 hrs Normal [facility] Comment on above: Order Comment: Speci men Type: BLOOD SPECIMENOrdering Facility: [facility] Address: [address] [place], [place] [address] Performed By: #### L CLINTB, 6-3, 99856-8 ####[facility] LABCLIA [id number] [address] [place] Triglyceride [Mass/Vol] 68 mg/dL Normal <150 [facility] Comment on above: Order Comment: Speci men Type: BLOOD SPECIMENOrdering Facility: [facility] Address: [address] [place] [address] Result Comment: <150 mg/dL, Normal 150-199 mg/dL, Borderline high 200-499 mg/dL, High >499 mg/dL, Very high Performed By: #### L IPB, 3016-3, 37259-8 ####[facility] LABCLIA [id number] [address] [place] TSH SerPl-aCncon 01-25-2022 TSH Qn 0.238 m[IU]/L Low 0.270-4.200 [facility] Comment on above: Order Comment: Speci men Type: BLOOD SPECIMENOrdering Facility: [facility] Address: [address] [place] [address] Performed By: #### L IPB, 3016-3, 47445-6 ####[facility] LABCLIA [id number] [address] OF [facility] CNOVon 11-28-2021 CNOV Office Visit (FAMPWS ) LETTY LEON ([id number]) 1940 F Date Time Provider Department 11/28/21 [...] of anxiety. This was changed at the [facility], they said she did better with this. [...] Floxin [Ofloxacin] Hives - Grass Pollen - Harper Needle Oil Current Medications Current Outpatient Medications [...] current facility-adm (more content not included)... Normal [facility] COVID-19 virus antigen assay SARS-CoV-2 (COVID-19) Ag IA.rapid Ql (Resp) [facility] Work Phone: Culture, urine Bacteria identified Cx Nom (U) Escherichia coli [facility] Work Phone: Vital Signs Date Time Vital Sign Value Performing Clinician Faci lity 10-30-2024 10:15-0500 Body height 175.[address] Ifrah Baker MD [facility] 10-30-2024 10:15-0500 Body mass index (BMI) [Ratio] 32 kg/m2 Dr. Ifrah Baker MD [facility] 10-30-2024 10:15-0500 Body weight 98.[address] Ifrah Baker MD [facility] 10-30-2024 10:15-0500 Diastolic blood pressure 79 mm[Hg] Dr. Ifrah Baker MD [facility] 10-30-2024 10:15-0500 Heart rate 60 /min Dr. Ifrah Baker MD [facility] 10-30-2024 10:15-0500 Respiratory rate 18 /min Dr. Ifrah Baker MD [facility] 10-30-2024 10:15-0500 Systolic blood pressure 117 mm[Hg] Dr. Ifrah Baker MD [facility] 10-29-2023 10:14-0500 Body height 175.[address] Ifrah Baker [facility] 10-29-2023 10:14-0500 Body mass index (BMI) [Ratio] 31 kg/m2 Dr. Ifrah Baker [facility] 10-29-2023 10:14-0500 Body weight 95.[address] Ifrah Baker [facility] 10-29-2023 10:14-0500 Diastolic blood pressure 77 mm[Hg[facility] 10-29-2023 10:14-0500 Heart rate 60 /min Dr. Ifrah Baker [facility] 10-29-2023 10:14-0500 Respiratory rate 18 /min Dr. Ifrah Baker [facility] 10-29-2023 10:14-0500 SaO2% (BldA) [Mass fraction] 95 % Dr. Ifrah Baker [facility] 10-29-2023 10:14-0500 Systolic blood pressure 123 mm[Hg] Dr. Ifrah Baker [facility] 05-29-2023 22:47-0400 Diastolic blood pressure 76 mm[Hg] [facility] 05-29-2023 22:47-0400 Heart rate 64 /min [facility] 05-29-2023 22:47-0400 Respiratory rate 14 /min [facility] 05-29-2023 22:47-0400 SaO2% (BldA) [Mass fraction] 98 % [facility] 05-29-2023 22:47-0400 Systolic blood pressure 115 mm[Hg] [facility] 05-29-2023 20:04-0400 Body height 175.26 cm [facility] 05-29-2023 20:04-0400 Body mass index (BMI) [Ratio] 31.4 kg/m2 [facility] 05-29-2023 20:04-0400 Body temperature 97.6 [degF] [facility] 05-29-2023 20:04-0400 Body weight 96.4 kg [facility] 03-02-2023 01:05-0400 Diastolic blood pressure 77 mm[Hg] [facility] 03-02-2023 01:05-0400 Heart rate 62 /min [facility] 03-02-2023 01:05-0400 Respiratory rate 16 /min [facility] 03-02-2023 01:05-0400 SaO2% (BldA) [Mass fraction] 97 % [facility] 03-02-2023 01:05-0400 Systolic blood pressure 129 mm[Hg] [facility] 03-01-2023 19:50-0400 Body height 175.26 cm [facility] 03-01-2023 19:50-0400 Body mass index (BMI) [Ratio] 27 kg/m2 [facility] 03-01-2023 19:50-0400 Body temperature 96.8 [degF] [facility] 03-01-2023 19:50-0400 Body weight 83.1 kg [facility] 09-07-2022 14:32-0500 Diastolic blood pressure 62 mm[Hg] Gavino Melendez MD Work Phone: [facility] 09-07-2022 14:32-0500 Heart rate 60 /min Gavino Melendez MD Work Phone: [facility] 09-07-2022 14:32-0500 Respiratory rate 16 /min Gavino Melendez MD Work Phone: [facility] 09-07-2022 14:32-0500 Systolic blood pressure 94 mm[Hg] Gavino Melendez MD Work Phone: [facility] 08-16-2022 17:03-0500 Body temperature 98 [degF] Dr. Gavino Melendez Work Phone: [facility] 08-16-2022 17:03-0500 Diastolic blood pressure 84 mm[Hg] Dr. Gavino Melendez Work Phone: [facility] 08-16-2022 17:03-0500 Heart rate 57 /min Dr. Gavino Melendez Work Phone: [facility] 08-16-2022 17:03-0500 Respiratory rate 20 /min Dr. Gavino Melendez Work Phone: [facility] 08-16-2022 17:03-0500 SaO2% (BldA) [Mass fraction] 95 % Dr. Gavino Melendez Work Phone: [facility] 08-16-2022 17:03-0500 Systolic blood pressure 110 mm[Hg] Dr. Gavino Melendez Work Phone: [facility] 08-15-2022 13:46-0500 Body height 175.[address] Gavino Melendez Work Phone: [facility] 08-15-2022 13:46-0500 Body weight 82.[address] Gavino Melendez Work Phone: [facility] 08-14-2022 19:35-0500 Body mass index (BMI) [Ratio] 26.9 kg/m2 Dr. Gavino Melendez Work Phone: [facility] 08-14-2022 19:03-0500 Body temperature 97 [degF] Dr. Gavino Melendez Work Phone: [facility] Work Phone: 08-14-2022 19:03-0500 Diastolic blood pressure 79 mm[Hg] Dr. Gavino Melendez Work Phone: [facility] Work Phone: 08-14-2022 19:03-0500 Heart rate 76 /min Dr. Gavino Melendez Work Phone: [facility] Work Phone: 08-14-2022 19:03-0500 Respiratory rate 20 /min Dr. Gavino Melendez Work Phone: [facility] Work Phone: 08-14-2022 19:03-0500 SaO2% (BldA) [Mass fraction] 97 % Dr. Gavino Melendez Work Phone: [facility] Work Phone: 08-14-2022 19:03-0500 Systolic blood pressure 123 mm[Hg] Dr. Gavino Melendez Work Phone: [facility] Work Phone: 08-14-2022 13:55-0500 Body height 175.[address] Gavino Melendez Work Phone: [facility] Work Phone: 08-14-2022 13:55-0500 Body mass index (BMI) [Ratio] 26.9 kg/m2 Dr. Gavino Melendez Work Phone: [facility] Work Phone: 08-14-2022 13:55-0500 Body weight 82.[address] Gavino Melendez Work Phone: [facility] Work Phone: 08-14-2022 13:42-0500 Diastolic blood pressure 44 mm[Hg] Jaren Jyoti LEAD [employer] DEVELOPER.PERSONAL LINES SALES REP Work Phone: [facility] 08-14-2022 13:42-0500 Systolic blood pressure 76 mm[Hg] Jaren Jyoti LEAD [employer] DEVELOPER.PERSONAL LINES SALES REP Work Phone: [facility] 08-14-2022 13:28-0500 Body temperature 98.6 [degF] Jaren Jyoti LEAD [employer] DEVELOPER.PERSONAL LINES SALES REP Work Phone: [facility] 08-14-2022 13:28-0500 Body weight 82.56 kg Jaren Jyoti LEAD [employer] DEVELOPER.PERSONAL LINES SALES REP Work Phone: [facility] 08-14-2022 13:28-0500 Heart rate 78 /min Jaren Jyoti LEAD [employer] DEVELOPER.PERSONAL LINES SALES REP Work Phone: [facility] 08-14-2022 13:28-0500 Respiratory rate 24 /min Jaren Jyoti LEAD [employer] DEVELOPER.PERSONAL LINES SALES REP Work Phone: [facility] 08-14-2022 13:28-0500 SaO2% (BldA) [Mass fraction] 97 % Jaren Jyoti LEAD [employer] DEVELOPER.PERSONAL LINES SALES REP Work Phone: [facility] 06-24-2022 08:24-0400 Body weight 82.56 kg Gavino Melendez MD Work Phone: [facility] 06-24-2022 08:24-0400 Diastolic blood pressure 74 mm[Hg] Gavino Melendez MD Work Phone: [facility] 06-24-2022 08:24-0400 Heart rate 73 /min Gavino Melendez MD Work Phone: [facility] 06-24-2022 08:24-0400 Respiratory rate 20 /min Gavino Melendez MD Work Phone: [facility] 06-24-2022 08:24-0400 SaO2% (BldA) [Mass fraction] 98 % Gavino Melendez MD Work Phone: [facility] 06-24-2022 08:24-0400 Systolic blood pressure 120 mm[Hg] Gavino Melendez MD Work Phone: [facility] 05-27-2022 13:32-0400 Body height 175.[address] Gavino Melendez Work Phone: [facility] Work Phone: 05-27-2022 13:32-0400 Body mass index (BMI) [Ratio] 25.1 kg/m2 Dr. Gavino Melendez Work Phone: [facility] 05-27-2022 13:32-0400 Body temperature 97.8 [degF] Dr. Gavino Melendez Work Phone: [facility] 05-27-2022 13:32-0400 Body weight 77.[address] Gavino Melendez Work Phone: [facility] 05-27-2022 13:32-0400 Diastolic blood pressure 67 mm[Hg] Dr. Gavino Melendez Work Phone: [facility] 05-27-2022 13:32-0400 Heart rate 64 /min Dr. Gavino Melendez Work Phone: [facility] 05-27-2022 13:32-0400 Respiratory rate 18 /min Dr. Gavino Melendez Work Phone: [facility] 05-27-2022 13:32-0400 SaO2% (BldA) [Mass fraction] 97 % Dr. Gavino Melendez Work Phone: [facility] 05-27-2022 13:32-0400 Systolic blood pressure 126 mm[Hg] Dr. Gavino Melendez Work Phone: [facility] 01-30-2022 13:24-0400 Diastolic blood pressure 74 mm[Hg] Gavino Melendez MD Work Phone: [facility] 01-30-2022 13:24-0400 Heart rate 68 /min Gavino Melendez MD Work Phone: [facility] 01-30-2022 13:24-0400 Respiratory rate 16 /min Gavino Melendez MD Work Phone: [facility] 01-30-2022 13:24-0400 Systolic blood pressure 118 mm[Hg] Gavino Melendez MD Work Phone: [facility] 11-28-2021 15:50-0400 Body weight 80.65 kg Gavino Melendez MD Work Phone: [facility] 11-28-2021 15:50-0400 Diastolic blood pressure 72 mm[Hg] Gavino Melendez MD Work Phone: [facility] 11-28-2021 15:50-0400 Heart rate 60 /min Gavino Melendez MD Work Phone: [facility] 11-28-2021 15:50-0400 Respiratory rate 20 /min Gavino Melendez MD Work Phone: [facility] 11-28-2021 15:50-0400 Systolic blood pressure 114 mm[Hg] Gavino Melendez MD Work Phone: [facility] Encounters Encounter Date Encounter Type Care Provider Facility Start: 05-26-2025 End: 05-26-2025 ambulatory Ifrah EARLY Facility:[facility] Start: 04-30-2025 End: 04-30-[address] Ifrah Baker MD -[facility] Start: 04-30-2025 End: 04-30-[address] Tray Cabrera MD -[facility] Work Phone: Start: 04-28-2025 ambulatory Ifrah EARLY Facili ty:[facility] Start: 04-28-[address] Ifrah Baker MD -[facility] Start: 03-31-[address] Ifrah Baker MD -[facility] Start: 03-31-2025 End: 03-31-2025 ambulatory Ifrah Gudla OLS Facility:[facility] Start: 03-17-2025 ambulatory Ifrah Gudla OLS Facili ty:[facility] Start: 03-17-[address] Ifrah Baker MD -[facility] Start: 02-24-[address] Ifrah Baker MD -[facility] Start: 02-24-2025 End: 02-24-2025 ambulatory Ifrah Eniofreddiea OLS Facility:[facility] Start: 01-29-2025 End: 01-29-[address] Ifrah Baker MD [facility] Work Phone: Start: 01-29-2025 End: 01-29-[address] Tray Cabrera MD -[facility] Work Phone: Start: 01-06-2025 ambulatory Ifrah Antonioa OLS Facili ty:[facility] Start: 01-06-[address] Ifrah Baker MD -[facility] Start: 12-09-2024 End: 12-09-[address] Ifrah Baker MD [facility] Work Phone: Start: 12-09-2024 End: 12-09-[address] Ifrah Baker MD -[facility] Start: 12-09-2024 End: 12-09-2024 ambulatory Ifrah Baker Facility:[facility] Start: 10-30-2024 End: 10-30-2024 ambulatory Tray Cabrera Facility:[facility] Start: 10-30-2024 End: 10-30-[address] Tray Cabrera MD -[facility] Work Phone: Start: 07-31-2024 End: 07-31-2024 ambulatory Tray Cabrera Facility:[facility] Start: 07-31-2024 End: 07-31-[address] Tray Cabrera MD -[facility] Work Phone: Start: 06-30-2024 End: 06-30-2024 ambulatory Ifrah EARLY Facility:[facility] Start: 11-05-2023 End: 11-05-[address] Rg [facility] Work Phone: Start: 11-05-2023 End: 11-05-[address] Ifrah Baker [facility] Start: 11-01-2023 End: 11-01-[address] Ifrah Baker [facility] Work Phone: Start: 10-29-2023 End: 10-29-[address] Ifrah Baker [facility] Work Phone: Start: 08-02-2023 Non-patient / Non-visit Dr. Ifrah cruz [facility] Start: 08-02-2023 End: 08-02-[address] [facility] Start: 08-02-2023 End: 08-02-[address] Ifrah Baker [facility] Work Phone: Start: 07-23-2023 End: 07-23-[address] [facility] Work Phone: Start: 07-23-2023 End: 07-23-[address] [facility] Work Phone: Start: 06-20-2023 End: 06-20-[address] [facility] Work Phone: Start: 06-20-2023 End: 06-20-2023 Departed Referred [facility] Start: 05-29-2023 End: 05-29-2023 Emergency department patient visit [facility] Work Phone: Start: 03-01-2023 End: 03-02-2023 Emergency department patient visit [facility] Work Phone: Start: 01-01-2023 End: 01-01-2023 Departed Referred [facility] Start: 10-31-2022 Refill Jaren SOTOMAYOR RN.[facility] Work Phone: [facility] Comment on above: Refill Request Start: 10-09-2022 Telephone encounter Keri ruiz [facility] Comment on above: Orders Start: 10-04-2022 Telephone encounter Gavino muse MD Work Phone: [facility] Comment on above: Fdc Placeme nt Start: 09-29-2022 Telephone encounter Gavino muse MD Work Phone: [facility] Comment on above: urine symptoms Start: 09-07-2022 End: 09-07-2022 ambulatory GAVINO MELENDEZ Facility:[facility] Start: 09-07-2022 End: 09-07-2022 Patient encounter procedure Gavino Melendez MD Work Phone: [facility] Comment on above: Essential hypertensi on (Primary Dx); Dementia without behavioral disturbance (HCC); Hyperlipidemia, unspecified hyperlipidemia type; Anxiety and depression; Hypothyroidism, iatrogenic Start: 08-31-[address] Gavino keller Work Phone: [facility] Start: 08-24-2022 End: 08-24-[address] Gavino Melendez Work Phone: [facility] Work Phone: Start: 08-24-2022 End: 08-24-[address] Gavino Melendez Work Phone: [facility] Start: 08-22-[address] Gavino keller Work Phone: [facility] Start: 08-17-[address] Gavino keller Work Phone: [facility] Start: 08-16-2022 Non-patient / Non-visit Dr. Porsha Melendez Work Phone: [facility] Start: 08-15-2022 Non-patient / Non-visit Dr. Porsha Melendez Work Phone: [facility] Start: 08-14-2022 Non-patient / Non-visit Dr. Porsha Melendez Work Phone: [facility] Start: 08-14-2022 End: 08-16-2022 Evaluation and management of inpatient Dr. Gavino Melendez Work Phone: [facility] Start: 08-14-2022 End: 08-16-[address] Gavino Melendez Work Phone: [facility] Work Phone: Start: 08-14-2022 End: 08-14-2022 ambulatory JAREN MONTES Facility:[facility] Start: 08-14-2022 End: 08-14-2022 Patient encounter procedure Jaren Montes APRN.CNP Work Phone: [facility] Comment on above: Recurrent falls (Rossi letty Dx); Generalized weakness; Hypotension, unspecified hypotension type; Confusion Start: 06-30-2022 Telephone encounter Gavino muse MD Work Phone: [facility] Comment on above: Results Start: 06-24-2022 End: 06-27-2022 ambulatory GAVINO MELENDEZ Facility:[facility] Start: 06-24-2022 End: 06-24-2022 Patient encounter procedure Gavino Melendez MD Work Phone: [facility] Comment on above: Essential hypertensi on (Primary Dx); Hyperlipidemia, unspecified hyperlipidemia type; Stage 3a chronic kidney disease (HCC); Hypothyroidism, iatrogenic; Arthritis of knee; Anxiety and depression; Flu vaccine need Start: 05-30-2022 Telephone encounter Gavino muse MD Work Phone: [facility] Comment on above: Orders for physical therapy in home (orders to [facility]) Start: 05-27-2022 End: 05-27-2022 Emergency department patient visit Dr. Gavino Melendez Work Phone: [facility] Start: 05-17-2022 End: 05-17-[address] Gavino Melendez Work Phone: [facility] Start: 02-10-2022 End: 02-10-[address] Gavino Melendez Work Phone: [facility] Start: 01-30-2022 End: 01-30-2022 ambulatory BASCO Carlos [facility] Facility:[facility] Start: 01-30-2022 End: 01-30-2022 Patient encounter procedure Gavino Melendez MD Work Phone: [facility] Comment on above: Essential hypertensi on (Primary Dx); Dementia without behavioral disturbance, unspecified dementia type (HCC); Hyperlipidemia, unspecified hyperlipidemia type; Hypothyroidism, iatrogenic; Anxiety and depression Start: 01-25-2022 End: 01-25-2022 ambulatory GAVINO Carlos [facility] Facility:[facility] Start: 12-29-2021 Refill Gavino shea MD Work Phone: [facility] Comment on above: Refill Request Start: 11-28-2021 End: 11-28-2021 ambulatory GAVINO Carlos [facility] Facility:[facility] Start: 11-28-2021 End: 11-28-2021 Patient encounter procedure Gavino Melendez MD Work Phone: [facility] Comment on above: Essential hypertensi on (Primary Dx); Anxiety and depression; Hypothyroidism, iatrogenic; Hyperlipidemia, unspecified hyperlipidemia type; Dementia without behavioral disturbance, unspecified dementia type (HCC) Procedures Date Procedure Procedure Detail Performing Clinician Start: 03-31-2025 Vitamin D, 25-hydrox y measurement Dr. Ifrah Baker MD Comment on above: Vitamin D StatusDefi ciency: <20 ng/mL (50nmol/L)Insufficiency: 20-30 ng/mL (50-75 nmol/L)Sufficiency: 30-100 ng/mL (75-250 nmol/L)Toxicity: >100 ng/mL (>250 nmol/L) Start: 01-06-2025 Vitamin D, 25-hydrox y measurement [...] Author Start: 06-24-2025 DIABETES SCREEN DIABETES SCREEN [facility] Start: 01-25-2025 DIABETES SCREEN DIABETES SCREEN [facility] Start: 05-23-2024 DIABETES SCREEN DIABETES SCREEN [facility] Start: 03-01-2023 [facility] Start: 11-30-2022 End: 01-30-2023 CBC panel - Blood by Automated count CBC Lab Routine Essential hypertension Hypothyroidism, iatrogenic Expected: 11/30/2022 (Approximate), Expires: 01/30/2023 [facility] Work Phone: Comment on above: Expected: 11/30/2022 (Approximate), Expires: 01/30/2023 Start: 11-30-2022 End: 01-30-2023 Comprehensive metabolic 2000 panel - Serum or Plasma COMP METABOLIC PANEL Lab Routine Hyperlipidemia, unspecified hyperlipidemia type Essential hypertension Expected: 11/30/2022 (Approximate), Expires: 01/30/2023 [facility] Work Phone: Comment on above: Expected: 11/30/2022 (Approximate), Expires: 01/30/2023 Start: 11-30-2022 End: 01-30-2023 Lipid 1996 panel - Serum or Plasma LIPID PANEL BASIC Lab Routine Hyperlipidemia, unspecified hyperlipidemia type Essential hypertension Expected: 11/30/2022 (Approximate), Expires: 01/30/2023 [facility] Work Phone: Comment on above: Expected: 11/30/2022 (Approximate), Expires: 01/30/2023 Start: 11-30-2022 End: 01-30-2023 Thyrotropin [Units/volume] in Serum or Plasma TSH BLD Lab Routine Hypothyroidism, iatrogenic Expected: 11/30/2022 (Approximate), Expires: 01/30/2023 [facility] Work Phone: Comment on above: Expected: 11/30/2022 (Approximate), Expires: 01/30/2023 Start: 08-27-2022 ADVANCE DIRECTIVE DISCUSSION ADVANCE DIRECTIVE DISCUSSION [facility] Start: 08-16-2022 Patient discharge [facility] Start: 08-14-2022 Assessment of risk o f venous thromboembolism [facility] Start: 08-14-2022 Insertion of cathete r into peripheral vein [facility] Start: 08-14-2022 Providing care accor ding to standard [facility] Start: 08-14-2022 Provision of activit y privileges [facility] Start: 08-14-2022 Referral to occupati onal therapist [facility] Start: 08-14-2022 Referral to service [facility] Start: 08-14-2022 [facility] Start: 08-14-2022 Following clinical pathway protocol [facility] Start: 08-14-2022 Verification routine [facility] Work Phone: Start: 08-14-2022 Admission procedure [facility] Start: 08-14-2022 Blood culture [facility] Work Phone: Start: 08-14-2022 [facility] Work Phone: Start: 08-14-2022 End: 08-14-[address] [facility] Work Phone: Start: 08-14-2022 Patient referral to dietitian [facility] Start: 08-01-2022 End: 10-01-2022 CBC panel - Blood by Automated count CBC Lab Routine Essential hypertension Expected: 08/01/2022 (Approximate), Expires: 10/01/2022 [facility] Work Phone: Comment on above: Expected: 08/01/2022 (Approximate), Expires: 10/01/2022 Start: 08-01-2022 End: 10-01-2022 Comprehensive metabolic 2000 panel - Serum or Plasma COMP METABOLIC PANEL Lab Routine Hyperlipidemia, unspecified hyperlipidemia type Essential hypertension Expected: 08/01/2022 (Approximate), Expires: 10/01/2022 [facility] Work Phone: Comment on above: Expected: 08/01/2022 (Approximate), Expires: 10/01/2022 Start: 08-01-2022 End: 10-01-2022 LIPID PANEL BASIC LIPID PANEL BASIC Lab Routine Hyperlipidemia, unspecified hyperlipidemia type Essential hypertension Expected: 08/01/2022 (Approximate), Expires: 10/01/2022 [facility] Work Phone: Comment on above: Expected: 08/01/2022 (Approximate), Expires: 10/01/2022 Start: 08-01-2022 End: 10-01-2022 Thyrotropin [Units/volume] in Serum or Plasma TSH BLD Lab Routine Hypothyroidism, iatrogenic Expected: 08/01/2022 (Approximate), Expires: 10/01/2022 [facility] Work Phone: Comment on above: Expected: 08/01/2022 (Approximate), Expires: 10/01/2022 Start: 06-24-2022 End: 08-24-2022 CBC panel - Blood by Automated count [facility] Work Phone: Comment on above: Expected: 06/24/2022 (Approximate), Expires: 08/24/2022 Start: 06-24-2022 End: 08-24-2022 Comprehensive metabolic 2000 panel - Serum or Plasma [facility] Work Phone: Comment on above: Expected: 06/24/2022 (Approximate), Expires: 08/24/2022 Start: 06-24-2022 End: 08-24-2022 Thyrotropin [Units/volume] in Serum or Plasma [facility] Work Phone: Comment on above: Expected: 06/24/2022 (Approximate), Expires: 08/24/2022 Start: 04-27-2022 Influenza vaccination INFLUENZA (#1) [facility] Start: 01-27-2022 End: 03-29-2022 Comprehensive metabolic 2000 panel - Serum or Plasma [facility] Work Phone: Comment on above: Expected: 01/27/2022 (Approximate), Expires: 03/29/2022 Start: 01-27-2022 End: 03-29-2022 LIPID PANEL BASIC LIPID PANEL BASIC Lab Routine Hyperlipidemia, unspecified hyperlipidemia type Expected: 01/27/2022 (Approximate), Expires: 03/29/2022 [facility] Work Phone: Comment on above: Expected: 01/27/2022 (Approximate), Expires: 03/29/2022 Start: 01-27-2022 End: 03-29-2022 Thyrotropin [Units/volume] in Serum or Plasma TSH BLD Lab Routine Hypothyroidism, iatrogenic Expected: 01/27/2022 (Approximate), Expires: 03/29/2022 [facility] Work Phone: Comment on above: Expected: 01/27/2022 (Approximate), Expires: 03/29/2022 Start: 08-27-2021 ADVANCE DIRECTIVE DISCUSSION ADVANCE DIRECTIVE DISCUSSION [facility] Start: 06-09-2011 SHINGRIX VACCINE (2 of 3) REGALADO GRIX VACCINE (2 of 3) [facility] Start: 05-28-2010 Urine microalbumin profile DTAP,TDAP,TD (1 - Tdap) [facility] Start: [birth year]-29-1945 COVID-19 VACCINE (#1) COVID-19 VACCI NE (#1) [facility] Start: [birth year]-29-1945 COVID-19 VACCINE (1) COVID-19 VACCIN E (1) [facility] Start: 1940 COVID-19 VACCINE (#1) COVID-19 VACCI NE (#1) [facility] Anion gap measurement [facility] Work Phone: Bacteria identified in Blood by Culture Blood Culture [facility] Work Phone: Bacteria identified in Urine by Culture Urine Culture [facility] Work Phone: Blood culture [facility] Work Phone: BUN/Creatinine ratio [facility] Work Phone: Calcium [Mass/volume ] in Serum or Plasma [facility] Work Phone: Carbon dioxide, tota l [Moles/volume] in Serum or Plasma [facility] Work Phone: Chloride [Moles/volu me] in Serum or Plasma [facility] Work Phone: Creatinine [Moles/vo lume] in Serum or Plasma [facility] Work Phone: Glucose [Mass/volume ] in Serum or Plasma [facility] Work Phone: Hematocrit [Volume Fraction] of Blood [facility] Work Phone: Hemoglobin [Mass/vol ume] in Blood [facility] Work Phone: Leukocytes [#/volume ] in Blood [facility] Work Phone: Mean corpuscular hemoglobin concentration determination [facility] Work Phone: Mean corpuscular hemoglobin determination [facility] Work Phone: Measurement of renal function [facility] Work Phone: Neutrophil count [facility] Work Phone: Neutrophil percent differential count [facility] Work Phone: Patient Education [facility] Work Phone: Patient referral [facility] Work Phone: Platelets [#/volume] in Blood [facility] Work Phone: Potassium [Moles/vol ume] in Serum or Plasma [facility] Work Phone: Red blood cell count [facility] Work Phone: Red cell distributio n width determination [facility] Work Phone: Sodium [Moles/volume ] in Serum or Plasma [facility] Work Phone: Urea nitrogen [Mass/volume] in Serum or Plasma [facility] Work Phone: [facility] Immunizations Immunization Date Immunization Notes Care Provider [facility] 06-24-2022 influenza, high-dose , quadrivalent vaccine (FLUZONE HIGH DOSE QUADRIVALENT) Gavino Melendez MD Work Phone: [facility] 05-30-2021 influenza, high-dose , quadrivalent vaccine (FLUZONE HIGH DOSE QUADRIVALENT) Gavino Melendez MD Work Phone: [facility] 05-27-[address] Gavino Melendez Work Phone: [facility] 05-05-2020 influenza, high-dose , quadrivalent vaccine (FLUZONE HIGH DOSE QUADRIVALENT) Gavino Melendez MD Work Phone: [facility] 06-09-2019 influenza, high dose seasonal, preservative-free Gavino Melendez MD Work Phone: [facility] 06-21-2018 influenza, high dose seasonal, preservative-free Gavino Melendez MD Work Phone: [facility] 05-29-2017 influenza, injectabl e, quadrivalent, preservative free [facility] 05-29-2017 influenza, seasonal, injectable Dr. Gavino Melendez Work Phone: [facility] 05-27-2017 influenza, high dose seasonal, preservative-free Gavino Melendez MD Work Phone: [facility] 05-27-2016 influenza, high dose seasonal, preservative-free Gavino Melendez MD Work Phone: [facility] 07-16-2015 pneumococcal conjuga te vaccine, 13 valent Gavino Melendez MD Work Phone: [facility] 05-27-2015 influenza, high dose seasonal, preservative-free Gavino Melendez MD Work Phone: [facility] 05-08-2013 influenza virus vacc ine, unspecified formulation Gavino Melendez MD Work Phone: [facility] Work Phone: 05-02-2011 influenza virus vacc ine, unspecified formulation Gavino Melendez MD Work Phone: [facility] 04-14-2011 zoster vaccine, live Gavino nicole MD Work Phone: [facility] Work Phone: 05-27-2010 tetanus and diphther ia toxoids, adsorbed, preservative free, for adult use (2 Lf of tetanus toxoid and 2 Lf of diphtheria toxoid) Gavino Melendez MD Work Phone: [facility] Work Phone: 05-14-2010 influenza virus vacc ine, unspecified formulation Gavino Melendez MD Work Phone: [facility] Work Phone: 08-27-[address] Shakira Melendez Work Phone: [facility] Work Phone: 08-27-2009 pneumococcal vaccine , unspecified formulation Dr. Gavino Melendez Work Phone: [facility] 05-27-2005 influenza virus vacc ine, unspecified formulation Gavino Melendez MD Work Phone: [facility] Work Phone: 07-29-2004 pneumococcal polysaccharide vaccine, 23 valent Gavino Melendez MD Work Phone: [facility] Work Phone: 05-27-2004 influenza virus vacc ine, unspecified formulation Gavino Melendez MD Work Phone: [facility] Work Phone: 07-27-2003 influenza virus vacc ine, unspecified formulation Gavino Melendez MD Work Phone: [facility] Work Phone: 06-27-2002 influenza virus vacc ine, unspecified formulation Gavino Melendez MD Work Phone: [facility] Work Phone: 07-27-2001 influenza virus vacc ine, unspecified formulation Gavino Melendez MD Work Phone: [facility] Work Phone: 05-27-1997 influenza virus vacc ine, unspecified formulation Gavino Melendez MD Work Phone: [facility] Work Phone: 06-27-1993 pneumococcal polysaccharide vaccine, 23 valent Gavino Melendez MD Work Phone: [facility] Work Phone: Payers Date Payer Category Payer Self-pay [id number] 2023 Medicaid [id number] 2023 Unknown [id number] 2021 Medicare UHC AARP MEDICAR E [facility] AAR MEDICARE PPO [id number] 2021-Present [phone] [address] [place] [id number] PPO [id number] 2021 Medicare UHC AARP MEDICAR E [facility] AAR MEDICARE PPO [id number] 2021-Present [phone] [place] [id number] PPO [id number] 2021 Unknown [id number] 2012 Unknown [id number] 2004 Medicare MEDICARE PART A B [id number] Unknown [facility] [id number] Unknown [id number] Unknown [id number] Unknown [id number] Unknown [id number] Unknown [id number] Unknown [id number] Unknown [id number] Unknown [id number] Unknown [id number] Unknown [id number] Unknown [id number] Unknown [id number] Unknown [id number] Unknown [id number] Unknown [id number] Social History Date Type Detail Facility Start: 11-16-2011 End: 10-29-2023 Tobacco smoking status NHIS Never smoked tobacco [facility] Start: 11-28-2021 End: 09-07-2022 Alcohol intake Current non-drinker of alcohol (finding) [facility] Start: 1940 Sex Assigned At Not on file [facility] Start: 11-18-2021 End: 06-24-2022 Exposure to SARS-CoV-2 (event) Not sure [facility] Start: 05-27-2022 End: 10-29-2023 Tobacco smoking status VTIS Unknown if ever smoked [facility] Start: 12-17-2020 None [facility] Start: 12-18-2020 Alone [facility] Start: 04-25-2021 Non-smoker [facility] Start: 1940 Sex Assigned At Female W [facility] Start: 11-16-2011 End: 06-24-2022 Tobacco use and exposure Smokeless tobacco non-user [facility] Start: 11-25-2024 Sex Female (finding) [place] [facility] Procedure Code Equipment Code Equipment Origin al Text Equipment Identifier Dates Cement Simplex P Bone Radiopaque Full Dose Sterile - [id number] Start: 08-16-2016 Ragini Farheen 3 Ti - [id number] Start: 10-26-2011 6.5 X 50 Mm Screw [id number] Start: 10-26-2011 Comment on above: Description: [id number], SCREW 90 Mm Rad Alistair [id number] Start: 10-26-2011 Comment on above: Description: ALISTAIR Component Triath gema 5 Femoral Cemented Posterior Stabilize Knee Right - [id number] Start: 08-16-2016 Insert Triathlon 6 X3 9mm Tibial Posterior Stabilized Bearing Knee - [id number] Start: 08-16-2016 Component Triath gema 38mm X3 11mm Patellar Asymmetric Knee - [id number] Start: 08-16-2016 Baseplate Triath gema 6 Tibial Primary Cement Knee - [id number] Start: 08-16-2016 ([id number]) Endocardial paci ng lead ()[id number] FDA Start: 09-26-2021 ([id number]) Endocardial paci ng lead ()[id number] FDA Start: 09-26-2021 ([id number]) Dual-chamber implantable pacemaker, rate-responsive ()[id number] ([id number] FDA Start: 09-26-2021 Goals Date Patient Goal Desired Activity /State Functional Status Date Assessment Result Facility 08-16-2022 Functional status Bedrest [facility] Work Phone: Mental Status Date Assessment Result Facility 03-01-2023 Cognitive function Level Of Cons ciousness Awake;Alert;Appropriate;Follow s Commands [facility] Work Phone: 08-16-2022 Cognitive function Voice/Name [facility] Work Phone: 08-14-2022 Cognitive function Level Of Cons ciousness Awake;Alert [facility] Work Phone: Clinical Notes 08-16-2016 to [...] 10:03am Hyperlipidemia chronic October 30, 2024 10:03am [facility] Work Phone: 1(138) 930-767812-07-[address] [facility] 05-29-2023 Discharge summary Author Edwin Nath [facility] May 29, 2023 10:47pm Note Date/Time May 29, 2023 8: 40pm [facility] Medical Records Department [address] [place] [address] Emergency Department Summary 05/29/23 MR#: [id number] Acct: [id number] Name: LETTY LEON Rep #:[id number] : [id number] From: Edwin Nath MD PCP: Ifrah Baker MD Status:REG ER Location: ED HPI History of Present Illness Chief Complaint: Lower Extremity Injury Informant: patient and SNF Narrative Narrative: Patient presents after a fall at [facility]. Patient states she fell when she was [...] mostly the left knee area. [facility] Medical History Anxiety and depression Bradycardia [...] will be to get her back to [facility]. Lab Data Attestation: I reviewed the patient's lab results. Labs: Laboratory Results - last 24 hr 05/29/23 20:40 WBC 5.8 RBC 4.05 L Hgb 12.4 Hct 39.0 MCV 96.3 MCH 30.6 MCHC 31.8 L RDW Std Deviation 47.4 H RDW Coeff of Jad 13.2 Plt Count 205 MPV 10.6 Immature Gran % (Auto) 0.200 Neut % (Auto) 62.6 Lymph % (Auto) 21.7 Mcnairy % (Auto) 10.6 H Eos % (Auto) [...] injury, Contusion of arm, left, Fall at long-term, Contusion of hip, left, Contusion of left [...] 3-5 Days if not improving Disposition Disposition: Custodial Facility Discharge Location: [facility] What to do if you have Problems For any increased pain, shortness of breath, bleeding, nausea or vomiting, chestpain, or any unexpected problems, contact your Primary Care Provider. Call [facility] ([phone]) or report to the closest Emergency Room. Call 911 if necessary. 05/29/232246 <Electronically signed by Edwin Nath MD> Cosigner Signature (if applicable): CC: Ifrah Baker MD ~ Signed [facility] Work Phone: 1(894) 881-754902-14-2023 Miscellaneous Notes* Telephone Encounter - Tanya Rojas [...] patient to be admitted to [facility]. The long-term was supposed to fax over paperwork to office on 10/06/22. Patient has a deadline of due to medicare regulation. Please review and advise. FAN Osborn October 09, 2022 2:04 PM documented in this encounterDiley Ridge Medical Center02-09-2023 Miscellaneous Notes* Telephone Encounter - Tanya Rojas Ma - 10/05/2022 10:46 AM EST Nima notified. He will contact long-term and have them send over paperwork. Tanya Rojas Ma * Telephone Encounter - Gavino Melendez MD - 10/05/2022 8:38 AM EST I can give him an order for admission to long-term; he may need to contact the long-term and have them send the required paperwork here. Gavino Melendez MD * Telephone Encounter - Anahi Moran RN - 10/04/2022 10:07 AM EST Patient's son calls and states that patient has been approved for medicaid. They have until 10/13/2022 to have her placed in a long-term. Son states that he had taken patient to [facility] ER to help getpatient in the long-term per recommendations from [facility]. [facility] ER told son that he needed to contact PCP to get patient placed in long-term. Patient is requiring more help then family can give. Patient is getting more confused. Son asking if provider can help patient get into [facility]? Please give son a call back. Please review and advise, Anahi Moran RN documented in this encounterDiley Ridge Medical Center02-06-2023 Miscellaneous Notes* Telephone Encounter - Emelia Rodriguez Ma - 10/02/2022 10:05 AM EST Call to pt son, Nima and notified him of below. He is heading to Pharmacy now and will pick up man. May have cleared up, but is picking up Rx. Emelia Rodriguez Ma * Telephone Encounter - Gavino Melendez MD - 09/30/2022 8:22 AM EST OK to go ahead and treat with three days of Bactrim as ordered Gavino Melendez MD * Telephone Encounter - Carey Blel LPN - 09/29/2022 12:05 PM EST Son [...] son. Carey Bell LPN documented in this encounterDiley Ridge Medical Center01-12-2023 NoteHNO ID: [id number] Author: Gavino Melendez MD Service: ? Author Type: Physician Type: Progress Notes Filed: 09/07/2022 2:56 PM Note Text: Chief Complaint Patient presents with: Hospital F/U: Fdc follow up. HPI Letty Leon is a 82 year old female who presents here today for a Fdc follow up. Pt here today with her son for a NH discharge. Pt was admitted into [facility] due to UTI, low BP, Dementia and recurrent falls. Pt was admitted from 08/14/22 and was stable for discharge to SNF on 08/16/22. Pt recently discharged from [facility] on 09/03/22. Nima unsure what the patient did while in [place], Dr. Gann told him she looked good, [...] again. Nima spoke with WILMER Alcocer at [facility] and they were ordering hospital bed and faxing it over to [employer].. Past medical history, appointments, medications, allergies reviewed. [...] [Cefadroxil] Hives Floxin [Ofloxacin] Hives Grass Pollen Harper Needle Oil Current Medications Current Outpatient Medications [...] Use Vaping Use: Nev (more content not included)...[facility] 09-07-2022 History of Present illness Narrative* Gavino Melendez MD - 09/07/2022 2:20 PM EST Chief Complaint Patient presents with: Hospital F/U: Fdc follow up. HPI Letty Leon is a 82 year old female who presents here today for a Fdc follow up. Pt here today with her son for a [place] discharge. Pt was admitted into [facility] due to UTI, low BP, Dementia and recurrent falls. Pt was admitted from 08/14/22 and was stable for discharge to SNF on 08/16/22. Pt recently discharged from [facility] on 09/03/22. Nima unsure what the patient did while in [place], Dr. Gann told him she looked good, [...] again. Nima spoke with WILMER Alcocer at [facility] and they were ordering hospital bed and faxing it over to [employer].. Past medical history, appointments, medications, allergies reviewed. [...] [Cefadroxil] Hives Floxin [Ofloxacin] Hives Grass Pollen Harper Needle Oil Current Medications Current Outpatient Medications [...] Moderate Gavino Melendez MD documented in this encounterDiley Ridge Medical Center12-19-2022 NoteHNO ID: [id number] Author: Jaren Montes APRN.[employer] REP Service: ? Author Type: Nurse Practitioner Type: [...] more present at this time. Jaren Montes APRN.CNP Discussed with granddaughter and son that Letty needs a more immediate work-up and intervention which would best take place at emergency room in hospital. I offered EMS but family declined and will transport themselves. [facility] ER portal updated This note was partly generated using [employer] voice recognition dictation and may contain some misspelled or inaccurate words missed on review.[facility]12-19-2022 History of Present illness Narrative* Jaren Montes [...] more present at this time. Jaren Montes APRN.CNP Discussed with granddaughter and son that Letty needs a more immediate work-up and intervention which would best take place at emergency room in hospital. I offered EMS but family declined and will transport themselves. [facility] ER portal updated This note was partly generated using [employer] voice recognition dictation and may contain some misspelled or inaccurate words missed on review. documented in this encounterDiley Ridge Medical Center11-04-2022 Miscellaneous Notes* Telephone Encounter - Tanya Rojas Ma - 06/30/2022 4:54 PM EDT Nima notified. Tanya Rojas Ma * Telephone Encounter - Gavino Melendez MD - 06/30/2022 4:49 PM EDT Please notify patient's son that her lab results look OK; stay on the same medications and follow up as planned Gavino Melendez MD documented in this encounterDiley Ridge Medical Center10-29-2022 NoteHNO ID: [id number] Author: Gavino Melendez MD Service: ? Author Type: Physician Type: Progress Notes Filed: 06/24/2022 12:10 PM Note Text: Chief Complaint Follow up HPI Letty Leon is a 82 year old female who presents here today for follow up. Pt here today for face to face visit per [facility] so that pt can continue [...] [Cefadroxil] Hives Floxin [Ofloxacin] Hives Grass Pollen Harper Needle Oil Current Medications Current Outpatient Medications [...] Health Maintenance List COVID- (more content not included)...[facility]10-29-2022 History of Present illness Narrative* Gavino Melendez MD - 06/24/2022 8:20 AM EDT Chief Complaint Follow up HPI Letty Leon is a 82 year old female who presents here today for follow up. Pt here today for face to face visit per [facility] so that pt can continue [...] [Cefadroxil] Hives Floxin [Ofloxacin] Hives Grass Pollen Harper Needle Oil Current Medications Current Outpatient Medications [...] Moderate Gavino Melendez MD documented in this encounterDiley Ridge Medical Center10-04-2022 Miscellaneous Notes* Telephone Encounter - Ancelmo Garcias MA - 05/30/2022 3:57 PM EDT Order faxed to # given. Son notified. Ancelmo Garcias MA * Telephone Encounter - Gavino Melendez MD - 05/30/2022 3:44 PM EDT Home PT ordered Gavino Melendez MD * Telephone Encounter - Carey Bell LPN - 05/30/2022 12:17 PM EDT Son Nima called to request orders be sent to [facility] for Physical Therapy. Pt has had them in the past. Nima states pt needs PT to help get her moving and walking. Pt had a knee replacement in the past and starting to get stiff. Please review and advise nima once the orders have been sent. [facility] PH [phone]. FAX: [phone] Carey Bell LPN documented in this encounterDiley Ridge Medical Center06-06-2022 NoteHNO ID: [id number] Author: Gavino Melendez MD Service: ? Author [...] kidney disease) stage 3, GFR 30-59 ml/min ([facility]) - Diverticulosis of colon (without mention of [...] Floxin [Ofloxacin] Hives - Grass Pollen - Harper Needle Oil Current Medications Current Outpatient Medications [...] Smoking status: Never Smoker (more content not included)...[facility]06-06-2022 History of Present illness Narrative* Gavino Melendez [...] [Cefadroxil] Hives Floxin [Ofloxacin] Hives Grass Pollen Harper Needle Oil Current Medications Current Outpatient Medications [...] Moderate Gavino Melendez MD documented in this encounterDiley Ridge Medical Center05-05-2022 Miscellaneous Notes* Telephone Encounter - Jraen Montes APRN.CNP - 12/29/2021 11:27 AM EDT [...] notify patient. Ginny Huang documented in this encounterDiley Ridge Medical Center04-04-2022 NoteHNO ID: [id number] Author: Gavino Melendez MD Service: ? Author [...] of anxiety. This was changed at the [place], they said she did better with this. [...] kidney disease) stage 3, GFR 30-59 ml/min ([facility]) - Diverticulosis of colon (without mention of [...] Floxin [Ofloxacin] Hives - Grass Pollen - Harper Needle Oil Current Medications Current Outpatient Medications [...] use: No EXAM: B (more content not included)...[facility]04-04-2022 History of Present illness Narrative* Gavino Melendez [...] of anxiety. This was changed at the [place], they said she did better with this. [...] [Cefadroxil] Hives Floxin [Ofloxacin] Hives Grass Pollen Harper Needle Oil Current Medications Current Outpatient Medications [...] Moderate Gavino Melendez MD documented in this encounterDiley Ridge Medical Center01-01-2022 Evaluation note* Diagnosis Onset Date Resolution Status Presence of permanent cardiac pacemaker August, acute Sick sinus syndrome due to SA node dysfunction acute Sinus pause acute Presence of permanent cardiac pacemaker August, acute Sick sinus syndrome due to SA node dysfunction acute Sinus pause acute Syncope acute [facility] Work Phone: 1(852) 554-319301-01-2022 Evaluation note* Diagnosis Onset Date Resolution Status Presence of permanent cardiac pacemaker August, acute Sick sinus syndrome due to SA node dysfunction acute Sinus pause acute Syncope acute Abnormal chest x-ray acute Debility acute Dementia acute Frequent falls acute Hypotension acute UTI (urinary tract infection) acute [facility] Work Phone: 1(829) 240-799701-01-2022 Evaluation note* Diagnosis Onset Date Resolution Status Presence of permanent cardiac pacemaker August, acute Sick sinus syndrome due to SA node dysfunction acute Sinus pause acute Syncope acute Abnormal chest x-ray acute Debility acute Dementia acute Frequent falls acute UTI (urinary tract infection) acute Hypotension resolved [facility] Work Phone: 1(449) 951-796001-01-2022 Evaluation note* Diagnosis Onset Date Resolution Status Presence of permanent cardiac pacemaker August, acute Sick sinus syndrome due to SA node dysfunction acute Sinus pause acute Presence of permanent cardiac pacemaker August, acute Hyperlipidemia chronic [facility] Work Phone: 1(343) 803-221912-21-2016 History of Past illness Narrative* Problem Noted [...] of this encounter (statuses as of 11/28/2021) [facility]12[facility] of Past illness Narrative* Problem Noted [...] of this encounter (statuses as of 12/29/2021) [facility] History of Past illness Narrative* Problem Noted [...] of this encounter (statuses as of 01/30/2022) [facility] History of Past illness Narrative* Problem Noted [...] of this encounter (statuses as of 05/30/2022) [facility] of Past illness Narrative* Problem Noted [...] of this encounter (statuses as of 06/24/2022) [facility] of Past illness Narrative* Problem Noted [...] of this encounter (statuses as of 06/30/2022) [facility] of Past illness Narrative* Problem Noted [...] of this encounter (statuses as of 08/14/2022) [facility] of Past illness Narrative* Problem Noted [...] of this encounter (statuses as of 09/07/2022) [facility] of Past illness Narrative* Problem Noted [...] of this encounter (statuses as of 10/02/2022) [facility] of Past illness Narrative* Problem Noted [...] of this encounter (statuses as of 10/05/2022) [facility] of Past illness Narrative* Problem Noted [...] of this encounter (statuses as of 10/10/2022) [facility] History of Past illness Narrative* Problem Noted [...] of this encounter (statuses as of 11/01/2022) [facility]* Diagnosis Essential hypertension- Primary Unspecified essential hypertension Anxiety and depression Dysthymic disorder Hypothyroidism, iatrogenic Other iatrogenic hypothyroidism Hyperlipidemia, unspecified hyperlipidemia type Dementia without behavioral disturbance, unspecified dementia type (HCC) documented in this encounter [facility] CenterEvaluation note* Diagnosis Essential hypertension- Primary Unspecified essential hypertension Dementia without behavioral disturbance, unspecified dementia type (HCC) Hyperlipidemia, unspecified hyperlipidemia type Hypothyroidism, iatrogenic Other iatrogenic hypothyroidism Anxiety and depression Dysthymic disorder documented in this encounter [facility] CenterEvalutrinity health note* Diagnosis Neuritis of lower extremity, unspecified laterality- Primary Generalized weakness Other malaise and fatigue Weakness of both lower extremities Status post total knee replacement, unspecified laterality documented in this encounter [facility] CenterEvaluation note* Diagnosis Essential hypertension- Primary Unspecified essential hypertension Hyperlipidemia, unspecified hyperlipidemia type Stage 3a chronic kidney disease (HCC) Hypothyroidism, iatrogenic Other iatrogenic hypothyroidism Arthritis of knee Unspecified arthropathy, lower leg Anxiety and depression Dysthymic disorder Flu vaccine need Need for prophylactic vaccination and inoculation against influenza documented in this encounter [facility] CenterEvaluation [facility]* Diagnosis Recurrent falls- Primary Personal history of fall Generalized weakness Other malaise and fatigue Hypotension, unspecified hypotension type Confusion Unspecified psychosis documented in this encounter [facility] CenterEvaluation [facility]* Diagnosis Essential hypertension- Primary Unspecified essential hypertension Dementia without behavioral disturbance (HCC) Dementia, unspecified, without behavioral disturbance Hyperlipidemia, unspecified hyperlipidemia type Anxiety and depression Dysthymic disorder Hypothyroidism, iatrogenic Other iatrogenic hypothyroidism documented in this encounter [facility]eraluation noteNo assessment information availableWSumma Health [facility] Work Phone: Hospital Discharge instructions Additional Instructions Testing in the ER ruled out an acute blood clot in the lung (pulmonary embolus) and myocardial infarction/heart attack.[facility] Work Phone: Reason for referral (narrative)No reason for referral information availableWSumma Health [facility] Work Phone: Advance Directives No Advanced Directives Records FoundDocuments on File Type Date Recorded Patient Network Intelligence Analyst Expl anation Advance Directive(s) 08/22/2016 3:19 PM Advance Directive(s) 12/06/2015 11:45 AM Advance Directive(s) 09/01/2009 9:43 PM Advance Directive Response Recorded Date/ Time Advance Directives Yes September 26, 2021 12:01pm Living Will No May 27 1:50pm Power of Quality Assurance Practice Manager No May 27 1:50pm Documents on File Type Date Recorded Patient Network Intelligence Analyst Expl anation Advance Directive(s) 08/22/2016 3:19 PM Advance Directive(s) 09/01/2009 9:43 PM Advance Directive Response Recorded Date/ Time Name of Medical Power of Quality Assurance Practice Manager Nima Leon August 14, 2022 7:40pm Advance Directives Yes September 26, 2021 11:01am Living Will No August 14 7:40pm Power of Quality Assurance Practice Manager Yes August 14, 2022 7:40pm Advance Directive Response Recorded Date/ Time Name of Medical Power of Quality Assurance Practice Manager family March 01, 2023 7:53pm Advance Directives Yes September 26, 2021 12:01pm Living Will No March 01, 2023 7 :53pm Power of Quality Assurance Practice Manager Yes March 01, 2023 7:53pm Advance Directive Response Recorded Date/ Time Name of Medical Power of Quality Assurance Practice Manager family March 01, 2023 7:53pm Advance Directives Yes September 26, 2021 12:01pm Living Will No May 29 8:03pm Power of Quality Assurance Practice Manager No May 29 023 8:03pm Advance Directive Response Recorded Date/ Time Advance Directives Yes September 26, 2021 11:01am Living Will No May 29 7:03pm Power of Quality Assurance Practice Manager No May 29 023 7:03pm Advance Directive Response Recorded Date/ Time Advance Directives Yes September 26, 2021 12:01pm Living Will No May 29 8:03pm Power of Quality Assurance Practice Manager No May 29 023 8:03pm Advance Directive Response Recorded Date/ Time Living Will No May 29 3 8:03pm Do you have a Healthcare Power of Quality Assurance Practice Manager? No May 29, 2023 8:03pm Advance Directives Yes September 26, 2021 12:01pm Advance Directive Response Recorded Date/ Time Advance [...] DEBILITY. FALLS. DEBILITY. FALLS. DEBILITY. FALLS. DEBILITY. PENITENTIARY LABWORK LAB WORK LABWORK Reason for Visit Presence of permanen t cardiac pacemaker Sick sinus syndrome due to SA node dysfunction Sinus pause Syncope Abnormal chest x-ray Debility Dementia Frequent falls UTI (urinary tract infection) Hypotension Chief Complaint LABWORK general illness Chief Complaint general illness FALL Chief Complaint FALL PENITENTIARY LAB WORK Chief Complaint FALL PENITENTIARY LAB WORK PVD Chief Complaint FALL PENITENTIARY LAB WORK PVD PARESTHESIA PARESTHESIA Chief Complaint [...] Visit Admit Date PAF (paroxysmal atrial fibrillation) [facility] 2024 10:02am Presence of permanent cardiac pacemaker October 30, 2024 10:02am Sick sinus syndrome due to SA node dysfu nction October 30, 2024 10:02am PAF (paroxysmal atrial fibrillation) [facility] 2024 10:03am Presence of permanent cardiac pacemaker October 30, 2024 10:03am Hyperlipidemia October 30, 2024 10:0 3am Chief Complaint Admit Date Pacer Check Remote October 30, 2024 2:00 am Pacer Check Remote October 30, 2024 9:00 am ANNUAL IN CLINIC/MMM @ 10:October 30, 2024 10:02am 1 Y FU/BLACK @ October 30, 2024 10:0 3am PENITENTIARY LAB WORK December 09, 2024 5 :00am Chief Complaint Admit Date Pacer Check Remote October 30, 2024 2:00 am Pacer Check Remote October 30, 2024 9:00 am ANNUAL IN CLINIC/MMM @ :October 30, 2024 10:02am 1 Y FU/BLACK @ October 30, 2024 10:0 3am PENITENTIARY LAB WORK December 09, 2024 5 :00am PENITENTIARY LAB WORK January 06, 2025 5:0 0am Pacer Check Remote January 29, 2025 2:00a m Chief Complaint Admit Date PENITENTIARY LAB WORK January 06, 2025 5:0 0am Pacer Check Remote January 29, 2025 2:00a m PENITENTIARY LAB WORK February 24, 2025 5:0 0am PENITENTIARY LAB WORK March 17, 2025 5: 00am PENITENTIARY LAB WORK March 31, 2025 4 :00am Pacer Check Remote April 30, 2025 3:15am Family History No Family History Records Found [...] or prosecute any alcohol or drug abuse patient.[facility] CenterIn the event this information is protected by the Federal Confidentiality of Alcohol and Drug Abuse Patient Records regulations: The Federal rules restrict any use of the information to criminally investigate or prosecute any alcohol or drug abuse patient.[facility] CenterIn the event this information is protected by the Federal Confidentiality of Alcohol and Drug Abuse Patient Records regulations: The Federal rules restrict any use of the information to criminally investigate or prosecute any alcohol or drug abuse patient.[facility] CenterIn the event this information is protected by the Federal Confidentiality of Alcohol and Drug Abuse Patient Records regulations: The Federal rules restrict any use of the information to criminally investigate or prosecute any alcohol or drug abuse patient.[facility] CenterIn the event this information is protected by the Federal Confidentiality of Alcohol and Drug Abuse Patient Records regulations: The Federal rules restrict any use of the information to criminally investigate or prosecute any alcohol or drug abuse patient.[facility] CenterIn the event this information is protected by the Federal Confidentiality of Alcohol and Drug Abuse Patient Records regulations: The Federal rules restrict any use of the information to criminally investigate or prosecute any alcohol or drug abuse patient.[facility] CenterIn the event this information is protected by the Federal Confidentiality of Alcohol and Drug Abuse Patient Records regulations: The Federal rules restrict any use of the information to criminally investigate or prosecute any alcohol or drug abuse patient.[facility] CenterIn the event this information is protected by the Federal Confidentiality of Alcohol and Drug Abuse Patient Records regulations: The Federal rules restrict any use of the information to criminally investigate or prosecute any alcohol or drug abuse patient.[facility] CenterIn the event this information is protected by the Federal Confidentiality of Alcohol and Drug Abuse Patient Records regulations: The Federal rules restrict any use of the information to criminally investigate or prosecute any alcohol or drug abuse patient.[facility] CenterIn the event this information is protected by the Federal Confidentiality of Alcohol and Drug Abuse Patient Records regulations: The Federal rules restrict any use of the information to criminally investigate or prosecute any alcohol or drug abuse patient.[facility] CenterIn the event this information is protected by the Federal Confidentiality of Alcohol and Drug Abuse Patient Records regulations: The Federal rules restrict any use of the information to criminally investigate or prosecute any alcohol or drug abuse patient.[facility] CenterIn the event this information is protected by the Federal Confidentiality of Alcohol and Drug Abuse Patient Records regulations: The Federal rules restrict any use of the information to criminally investigate or prosecute any alcohol or drug abuse patient.[facility] Reason for Visit (unrecogniz ed section and content) Reason Comments F/U 3 Month Specialty Diagnoses / Procedures Referred By [place] Referred To Contact Family Practice / FAMILY MEDICINE Diagnoses 3 month follow up Procedures 4C Gavino Mccain MD [address] [place] [address] [place] [address] [place] [id number] Referral ID Status Reason Start Date Expiration Date V isits Requested Visits Authorized [id number] Closed Patient Cleared INN/SMCP Payor Auth Obtained 11/28/2021 08/26/2022 1 1 Reason Onset Date Comments Refill Request 12/29/2021 Reason Comments Follow Up Specialty Diagnoses / Procedures Referred By [place] Referred To Contact Family Practice / FAMILY MEDICINE Diagnoses 2 mo f/u Procedures 4C Gavino Mccain MD [address] [place] [address] [place] [address] [place] [id number] Referral ID Status Reason Start Date Expiration Date Visits Re quested Visits Authorized [id number] Closed 01/30/2022 08/26/2022 1 1 Reason Comments Orders for physical therapy in home orde rs to [facility] Reason Comments Results Reason Comments Multiple falls X 1 week Reason Comments Hospital F/U Fdc follow up. Reason Comments urine symptoms Reason Comments Fdc Placement Reason Comments Orders Reason Comments Refill Request Care Teams (unrecognized sec tion and content) Nuclear Technician Relationship Specialty Start Date End Date Gavino Melendez MD [address] [place], [place] [id number] PCP - General Family Practice 04/13/15 Nuclear Technician Relationship Specialty Start Date End Date Gavino Melendez MD [address] [place] [address] PCP - General Family Practice 04/13/15 Nuclear Technician Relationship Specialty Start Date End Date Gavino Melendez MD [address] [place] [address] PCP - General Family Practice 04/13/15 Nuclear Technician Relationship Specialty Start Date End Date Gavino Melendez MD [address] [place] [address] PCP - General Family Medicine 04/13/15 Nuclear Technician Relationship Specialty Start Date End Date Gavino Melendez MD [address] [place] [address] PCP - General Family Medicine 04/13/15 Nuclear Technician Relationship Specialty Start Date End Date Gavino Melendez MD [address] [place] [address] PCP - General Family Medicine 04/13/15 Nuclear Technician Relationship Specialty Start Date End Date Gavino Melendez MD [address] [place] [address] PCP - General Family Medicine 04/13/15 Team [...] Provider Active Nima Grover Attending Provider Active Nuclear Technician Relationship Specialty Start Date End Date Gavino Melendez MD [address] [place] [address] PCP - General Family Medicine 04/13/15 Nuclear Technician Relationship Specialty Start Date End Date Gavino Melendez MD [address] [place] [address] PCP - General Family Medicine 04/13/15 Team [...] January 29, 2025 End: January 29, 2025 Team Status: Active Member Role/Relationship Status Dates Dr. Ifrah Baker MD Primary Care Provider Active Team Status: Active Member Role/Relationship Status Dates Dr. Ifrah Baker MD Primary Care Provider Active Start: January 06, 2025 Dr. Ifrah EARLY MD Attending Provider Active Start: January 06, 2025 Team Status: Inactive Member Role/Relationship Status Dates Dr. Ifrah Baker MD Primary Care Provider Active Start: January 29, 2025 End: January 29, 2025 Dr. Tray Cabrera MD Attending Provider Active S tart: January 29, 2025 End: January 29, 2025 Dr. Tray Cabrera MD Referring Provider Active S tart: January 29, 2025 End: January 29, 2025 Team Status: Active Member Role/Relationship Status Dates Dr. Ifrah Baker MD Primary Care Provider Active Start: February 24, 2025 Dr. Ifrah EARLY MD Attending Provider Active Start: February 24, 2025 Team Status: Active Member Role/Relationship Status Dates Dr. Ifrah Baker MD Primary Care Provider Active Start: March 17, 2025 Dr. Ifrah EARLY MD Attending Provider Active Start: March 17, 2025 Team Status: Active Member Role/Relationship Status Dates Dr. Ifrah Baker MD Primary Care Provider Active Start: March 31, 2025 Dr. Ifrah EARLY MD Attending Provider Active Start: March 31, 2025 Dr. Ifrah EARLY MD Referring Provider Active Start: March 31, 2025 Team Status: Active Member Role/Relationship Status Dates Dr. Ifrah Baker MD Primary Care Provider Active Start: April 28, 2025 Dr. Ifrah EARLY MD Attending Provider Active Start: April 28, 2025 Team Status: Inactive Member Role/Relationship Status Dates Dr. Ifrah Baker MD Primary Care Provider Active Start: April 30, 2025 End: April 30, 2025 Dr. Tray Cabrera MD Attending Provider Active S tart: April 30, 2025 End: April 30, 2025 Goals (unrecognized section and content) Goals [...] section and content) DATE CREATED AUTHOR 10/10/2022 [facility] DATE CREATED AUTHOR AUTHOR'S ORGANIZ ATION 06/27/2025 [facility] FOR RECORDS PERTAINING TO PATIENTS WHO [...] BE BASED ON THE PRIMARY CLINICAL RECORDS. [employer] [facility]. provides no warranty or guarantee of the accuracy or completeness of information in this document.
== END ==
LOC: OLS.SW 05:00
PROVIDERS: PCP Internal Medicine; Visit Provider Internal Medicine
DX: E03.9 Hypothyroidism, unspecified (principal)
CPT/HCPCS: 36415; 84443